=== PATIENT | female | born 1945 | race Caucasian/White ===

== ENCOUNTER → 2016-06-20 | Outpatient (CLI) | payer BC ==
[~2016-06-20] MED LIST: BILBERRY; CALCTAB5 PO; CARB25TA12 PO; CINNAMON; GLC/500 PO; GLY/5 PO; MAGN400T6 PO; POTASSIUM OTC; SIMV40TA2 PO; VITAMIN D3; [UNRECOGNIZED DRUG - OTHER]; [UNRECOGNIZED DRUG - OTHER]
[2016-06-20 11:03] LABS: ESTIMATED AVERAGE GLUCOSE 137 mg/dl; HA1C FLAG Normal (Normal)
[2016-06-20 11:17] LABS: ALT/SGPT 8 U/L (12-78); AST/SGOT 16 U/L (15-37); BLOOD UREA NITROGEN 22 mg/dl (7-18); BUN/CREATININE RATIO 18.3 (10-20); CALCIUM 9.3 mg/dl (8.5-10.1); CARBON DIOXIDE 27 mmol/L (21-32); CHLORIDE 105 mmol/L (98-107); CHOLESTEROL 149 mg/dl (0-200); GLUCOSE 124 mg/dl (70-99); POTASSIUM 4.3 mmol/L (3.5-5.1); SODIUM 143 mmol/L (136-145); TRIGLYCERIDES 92 mg/dl (0-150); VERY LOW DENSITY LIPOPROT CALC 18 mg/dl
[2016-06-20 11:19] LABS: ALB/GLOB RATIO 1.3 (0.9-2); ALKALINE PHOSPHATASE 61 U/L (45-117); CHOLESTEROL/HDL RATIO 2.6; HDL CHOLESTEROL 57 mg/dl
== END | disposition home or self-care (01) ==
LOC: C.LAB 08:56
PROVIDERS: ATTEND Internal Medicine
DX: E11.65 Type 2 diabetes mellitus with hyperglycemia (principal); E78.5 Hyperlipidemia, unspecified; I10 Essential (primary) hypertension

== ENCOUNTER → 2016-06-26 | Outpatient (CLI) | payer BC ==
--- NOTE | 2016-06-26 12:51 | MAMMOGRAPHY REPORT ---
BILATERAL DIGITAL SCREENING MAMMOGRAM WITH CAD: 06/26/2016 CLINICAL HISTORY: Routine screening. Patient has no complaints. TECHNIQUE: Current study was also evaluated with a Computer Aided Detection (CAD) system. Bilatera l CC and MLO views were obtained. COMPARISON: Comparison is made to exams dated: 06/24/2015 mammogram, 06/21/2014 mammogram, 05/16/2013 mammogram, 05/04/2013 mammogram, 04/26/2012 mammogram, and 04/23/2011 mammogram - [facility]. BREAST COMPOSITION: There are scattered areas of fibroglandular density in both breasts. FINDINGS: No suspicious masses, calcifications, or areas of architectural distortion are noted in e ither breast. There has been no significant interval change compared to prior exams. IMPRESSION: ACR BI-RADS CATEGORY 1: NEGATIVE There is no mammographic evidence of malignancy. A 1 year screening mammogram is recommended. The p atient will receive written notification of the results. Approximately 10% of breast cancers are not detected with mammography. A negative mammographic repor t should not delay biopsy if a clinically suggestive mass is present. Anuja Ortega M.D. /:06/26/2016 10:40:26 Finished Stock Inspector: Beth Clarke, [facility] letter sent: Normal 1/2 BI-RADS Code: ACR BI-RADS Category 1: Negative
== END | disposition home or self-care (01) ==
LOC: C.MAMM 09:22
PROVIDERS: ATTEND Internal Medicine
DX: Z12.31 Encounter for screening mammogram for malignant neoplasm of breast (principal)

== ENCOUNTER → 2016-11-07 | Outpatient (CLI) | payer BC ==
[2016-11-07 11:15] LABS: ESTIMATED AVERAGE GLUCOSE 143 mg/dl; HA1C FLAG Normal (Normal)
[2016-11-07 11:16] LABS: ALT/SGPT 9 U/L (12-78); BLOOD UREA NITROGEN 26 mg/dl (7-18); BUN/CREATININE RATIO 18.5 (10-20); CALCIUM 8.8 mg/dl (8.5-10.1); CARBON DIOXIDE 29 mmol/L (21-32); CHLORIDE 106 mmol/L (98-107); CHOLESTEROL 150 mg/dl (0-200); GLUCOSE 148 mg/dl (70-99); POTASSIUM 4.5 mmol/L (3.5-5.1); SODIUM 141 mmol/L (136-145)
[2016-11-07 11:19] LABS: ALB/GLOB RATIO 1.4 (0.9-2); ALKALINE PHOSPHATASE 61 U/L (45-117); AST/SGOT 14 U/L (15-37); CHOLESTEROL/HDL RATIO 2.5; HDL CHOLESTEROL 59 mg/dl; TRIGLYCERIDES 63 mg/dl (0-150); VERY LOW DENSITY LIPOPROT CALC 13 mg/dl
== END | disposition home or self-care (01) ==
LOC: C.LAB 09:14
PROVIDERS: ATTEND Internal Medicine
DX: E78.5 Hyperlipidemia, unspecified (principal); E11.9 Type 2 diabetes mellitus without complications; I10 Essential (primary) hypertension

== ENCOUNTER → 2017-06-28 | Outpatient (CLI) | payer BC ==
--- NOTE | 2017-06-28 15:03 | MAMMOGRAPHY REPORT ---
BILATERAL DIGITAL SCREENING MAMMOGRAM TOMOSYNTHESIS WITH CAD: 06/28/2017 CLINICAL HISTORY: Routine screening examination. TECHNIQUE: Bilateral breast tomosynthesis in addition to standard 2D mammography was performed. Deyanirae nt study was also evaluated with a Computer Aided Detection (CAD) system. COMPARISON: Comparison is made to exams dated: 06/26/2016 mammogram, 06/24/2015 mammogram, 06/21/2014 yasmany mogram, 05/16/2013 mammogram, 05/04/2013 mammogram, and 04/26/2012 mammogram - [facility] enter. BREAST COMPOSITION: There are scattered areas of fibroglandular density in both breasts. FINDINGS: There is a subtle focal asymmetry in the 9:00 to 10:00 middle one third of the right breas t, for which additional spot compression tomosynthesis views and possible ultrasound are recommended. No other suspicious mass, architectural distortion or cluster of microcalcifications is seen bilatera lly. IMPRESSION: ACR BI-RADS CATEGORY 0: INCOMPLETE EVALUATION: NEED ADDITIONAL IMAGING EVALUATION The subtle focal asymmetry in the right upper outer breast needs additional evaluation. The patient will be called to schedule an appointment. Approximately 10% of breast cancers are not detected with mammography. A negative mammographic report should not delay biopsy if a clinically suggestive mass is present. Neela Moore M.D. ay/:06/28/2017 13:20:45 [employer] Volleyball Coach: Beth MOLINA(Kris)(Aamir), [facility] letter sent: Addl Imaging 0 BI-RADS Code: ACR BI-RADS Category 0: Incomplete Evaluation: Need Additional Imaging Evaluation
== END | disposition home or self-care (01) ==
LOC: C.MAMM 10:18
PROVIDERS: ATTEND Internal Medicine
DX: Z12.31 Encounter for screening mammogram for malignant neoplasm of breast (principal); N64.89 Other specified disorders of breast

== ENCOUNTER → 2017-07-12 | Outpatient (CLI) | payer BC ==
--- NOTE | 2017-07-12 14:51 | MAMMOGRAPHY REPORT ---
UNILATERAL RIGHT DIGITAL DIAGNOSTIC MAMMOGRAM TOMOSYNTHESIS AND TARGETED RIGHT ULTRASOUND: 07/12/2017 CLINICAL HISTORY: 72-year-old woman called back from screening mammography for a subtle focal asymmet ry in the 9:00 to 10:00 middle to posterior right breast. TECHNIQUE: Spot compression right CC and MLO 2-D and tomosynthesis images were obtained. COMPARISON: Comparison is made to exams dated: 06/28/2017 mammogram, 06/26/2016 mammogram, 06/24/2015 mamm ogram, 06/21/2014 mammogram, 05/04/2013 mammogram, and 04/26/2012 mammogram - [facility] ter. BREAST COMPOSITION: There are scattered areas of fibroglandular density in the right breast. FINDINGS: The additional spot compression views of the right breast demonstrate partial effacement of the asymmetry, which has the appearance of normal fibrolinear markings. There is no definite eviden ce of a persistent mass or evidence of focal architectural distortion. No corresponding abnormality identified on the current CC spot compression view. When comparing the 2-D spot compression MLO view of the right breast to prior mammograms, the pattern is similar to the 2016 and 2014 mammograms, sug gesting normal overlapping tissue. Targeted ultrasound was performed in the right breast 2:00 through 4:00, retroareolar and 8:00 throug h 10:00 axes. Sonographically normal tissue is seen without a suspicious solid or cystic mass. IMPRESSION: ACR BI-RADS CATEGORY 2: BENIGN, TARGETED ULTRASOUND ACR BI-RADS CATEGORY 2: BENIGN Partial effacement of the mammographic asymmetry in the middle one third of the right breast, along t he posterior nipple line on the MLO view, and no suspicious sonographic correlate identified. This m ost likely represented normal overlapping fibrolinear markings. There is no mammographic or targeted sonographic evidence of malignancy. Return to annual mammogram screening schedule is recommended. T he patient has been verbally notified of the results. Approximately 10% of breast cancers are not detected with mammography. A negative mammographic report should not delay biopsy if a clinically suggestive mass is present. Neela Moore M.D. ay/:07/12/2017 10:48:18 Hand Tacker: Dana MOLINA(R)(M), [facility] letter sent: Normal 1/2 BI-RADS Code: ACR BI-RADS Category 2: Benign Ultrasound BI-RADS: ACR BI-RADS Category 2: Benign
== END | disposition home or self-care (01) ==
LOC: C.MAMM 10:00
PROVIDERS: ATTEND Internal Medicine
DX: N64.9 Disorder of breast, unspecified (principal)

== ENCOUNTER → 2017-07-20 | Outpatient (CLI) | payer BC ==
[2017-07-26 13:10] LABS: FECAL OCCULT BLOOD #1 NEGATIVE (NEGATIVE); FECAL OCCULT BLOOD #2 NEGATIVE (NEGATIVE); FECAL OCCULT BLOOD #3 NEGATIVE (NEGATIVE)
== END | disposition home or self-care (01) ==
LOC: C.LABSPEC 12:51
PROVIDERS: ATTEND Internal Medicine
DX: Z12.11 Encounter for screening for malignant neoplasm of colon (principal)

== ENCOUNTER 2021-04-18 13:06 | Inpatient (IN) ==
[2021-04-18] MEDS ORDERED: SODIUM CHLORIDE 0.9% 1000ML 1,000 ML IV ONE (13:35)
--- NOTE | 2021-04-18 13:52 | Emergency Department Note ---
Impression & Plan 2019 novel coronavirus-infected pneumonia (NCIP), Rhabdomyolysis, Acute dehydration ED Provider Note NAME: PAULA SANCHEZ AGE: 76 SEX: F : 1945 ARRIVES VIA: Ambulance INFORMANT: Patient, EMS ED PROVIDER(S): Mino Lopes DO CHIEF COMPLAINT: Altered mental status HPI: The patient is a 76-year-old female who presented to the emergency department by ambulance for an evaluation of altered mental status. 2 days ago the patient had a check by police. She refused to come in the emergency department that time. She did not answer her phone. Family checked on her today and found her on the floor. Her downtime was unknown. She does answer questions but appears to be in answering questions according to her family compared to baseline. She does have a history of Parkinson's disease. It is unclear if the patient had a fever. It is unclear if the patient had a significant fall. She does not complain of any pain anywhere. The patient may have not been taking her medications recently either. ROS: See above HPI for pertinent positives & negatives. A total of 10 systems reviewed and were otherwise negative. PAST MEDICAL HISTORY: See Below PAST SURGICAL HISTORY: See Below FAMILY HISTORY: See Below SOCIAL HISTORY: See Below HOME MEDICATIONS: See Below ALLERGIES: See Below VITALS: See Below PHYSICAL EXAMINATION: GENERAL: The patient is awake to verbal commands. She does appear to be mildly anxious. EYES: The conjunctivae are clear. The pupils are round and reactive. EARS, NOSE, MOUTH AND THROAT: The nose is without any evidence of any deformity. There is clotted blood in the oropharynx. No definite tongue biting was noted. NECK: The neck is nontender and supple. RESPIRATORY: Normal respiratory effort is noted there is no evidence of wheezing rhonchi or rales CARDIOVASCULAR: Regular rate and rhythm noted there no murmurs rubs or gallops normal S1 normal S2. GASTROINTESTINAL: The abdomen is soft and nondistended. There is no specific tenderness guarding rigidity. MUSCULOSKELETAL/EXTREMITIES: There is no evidence of gross deformity full range of motion is noted in the hips and shoulders. SKIN: Skin is warm and dry. NEUROLOGIC: Patient is awake to verbal commands she appears to be oriented to person place but not time. The patient does not appear to be able to move her right leg. The onset of this is unclear. The patient appears to have a resting tremor in her right upper extremity only. There is no facial droop. MEDICAL DECISION MAKING: The patient is a 76-year-old female who presented to the emergency department for an evaluation after being found on the floor in her house. The patient was seen for a well visit 2 days ago. She refused to come the emergency department at that time. She was then not heard from and family members found her on the floor. The patient was found to have signs of Covid infection on chest x-ray. Her Covid swab was positive. She was treated with IV fluids in the emergency department. I discussed the patient's laboratory and radiographic studies with the on-call [facility]. They have agreed to evaluate the patient in the emergency department for further management and disposition. Triage Nursing notes reviewed. Prior medical records reviewed Vital Signs: reviewed and remarkable for elevated blood pressure. Differential diagnosis: Infection, hypoglycemia, electrolyte abnormalities, overdose, toxicologic, cardiac sources, intracerebral event, neurologic, trauma, as well as other pathologies. ER treatment provided: See below Diagnostics interpreted by me: ECG: EKG was obtained in the emergency department. My interpretation is sinus tachycardia 108 bpm. There is no ectopy. Poor R wave progression was noted. This was compared to a tracing from June [id number]. No significant changes were noted. Cardiac Monitoring: An order was placed for continuous cardiac monitoring. The monitor shows a rate of 101 bpm with sinus tachycardia Laboratory studies: As stated above and show below. Imaging studies: See below Consultation(s): I discussed this case with Devante who is on for the [facility] group. They have agreed to evaluate the patient in the emergency department. Past Med/Surg History Medical History (Updated 04/18/21 @ 17:27 by Mino Lopes DO) Ankle sprain Diabetes HLD (hyperlipidemia) Parkinsons disease Surgical History History of back surgery History of dilation and curettage Family History Family/Other Heart disease Mother No pertinent family history Father No pertinent family history Social History Smoking Status: Never smoker Preferred Language: Kyrgyz marital status: Current Living Situation: Alone current occupational status: employed Feels Safe at Home: Yes Allergies Allergies Allergy/AdvReac Type Severity Reaction Status Date / Time latex Allergy Mild RASH Verified 04/18/21 14:19 Sulfa (Sulfonamide Allergy Unknown Verified 04/18/21 14:19 Antibiotics) Bee sting Allergy Unknown Unknown Uncoded 04/18/21 14:19 Home Meds Home Medications Medication Instructions Recorded Confirmed bilberry 100 mg capsule 200 mg PO BID 06/13/18 04/18/21 cinnamon bark 500 mg capsule 500 mg PO BID 06/13/18 04/18/21 (Cinnamon) glyburide 5 mg tablet 5 mg PO BID 06/13/18 04/18/21 magnesium oxide 400 mg PO BID 06/13/18 04/18/21 metformin 500 mg tablet 500 mg PO BIDM 06/13/18 04/18/21 potassium 99 mg tablet 495 mg PO BID 06/13/18 04/18/21 simvastatin 40 mg tablet 40 mg PO QDD 06/13/18 04/18/21 cholecalciferol (vitamin D3) 25 1,000 units PO BID cap 01/09/19 04/18/21 mcg (1,000 unit) capsule cyanocobalamin (vitamin B-12) 2,500 mcg PO DAILY 01/09/19 04/18/21 2,500 mcg tablet folic acid 800 mcg tablet 800 mcg PO BID tab 01/09/19 04/18/21 lisinopril 10 mg tablet 10 mg PO DAILY tab 01/09/19 04/18/21 pyridoxine (vitamin B6) 100 mg 100 mg PO BID tab 01/09/19 04/18/21 tablet Previous Rx's Medication Instructions Recorded carbidopa 25 mg-levodopa 100 mg 2 tab PO QID 30 Days #240 tab 04/01/21 tablet Results & Data (ED) Vital Signs Vital Signs - 24 hr 04/18/21 12:54 04/18/21 12:55 04/18/21 13:35 Temperature 36.4 C L Temperature Source Oral Pulse Rate 87 Pulse Rate [Left] Pulse Rhythm Regular Pulse Rhythm [Left] Pulse Strength Normal Pulse Strength [Left] Respiratory Rate 20 Respiratory Effort / Characteristics Non-Labored Non-Labored Respiratory Depth Normal Blood Pressure 172/126 H Blood Pressure [Left Arm] Blood Pressure Mean 141 Blood Pressure Mean [Left Arm] Pulse Oximetry 94 94 Oxygen Delivery Method Room Air Room Air Sepsis Recent Fever Within 48 Hours No Sepsis New/Unexplained Change in Mental Status No Sepsis Action Taken by Nursing No Action Required 04/18/21 14:05 04/18/21 14:35 04/18/21 14:39 Temperature Temperature Source Pulse Rate 103 H Pulse Rate [Left] 103 H Pulse Rhythm Pulse Rhythm [Left] Regular Pulse Strength Pulse Strength [Left] Normal Respiratory Rate 22 Respiratory Effort / Characteristics Non-Labored Non-Labored Non-Labored Respiratory Depth Normal Blood Pressure Blood Pressure [Left Arm] 167/91 H Blood Pressure Mean Blood Pressure Mean [Left Arm] 116 Pulse Oximetry 95 Oxygen Delivery Method Room Air Sepsis Recent Fever Within 48 Hours Sepsis New/Unexplained Change in Mental Status Sepsis Action Taken by Nursing 04/18/21 14:41 04/18/21 14:42 04/18/21 15:00 Temperature Temperature Source Pulse Rate 102 H Pulse Rate [Left] 104 H Pulse Rhythm Pulse Rhythm [Left] Pulse Strength Pulse Strength [Left] Respiratory Rate 20 24 Respiratory Effort / Characteristics Non-Labored Non-Labored Respiratory Depth Blood Pressure Blood Pressure [Left Arm] 167/91 H Blood Pressure Mean Blood Pressure Mean [Left Arm] 116 Pulse Oximetry 96 94 Oxygen Delivery Method Room Air Sepsis Recent Fever Within 48 Hours Sepsis New/Unexplained Change in Mental Status Sepsis Action Taken by Nursing 04/18/21 15:30 Temperature Temperature Source Pulse Rate 101 H Pulse Rate [Left] Pulse Rhythm Pulse Rhythm [Left] Pulse Strength Pulse Strength [Left] Respiratory Rate 23 Respiratory Effort / Characteristics Non-Labored Respiratory Depth Blood Pressure 149/86 H Blood Pressure [Left Arm] Blood Pressure Mean 107 Blood Pressure Mean [Left Arm] Pulse Oximetry 93 Oxygen Delivery Method Sepsis Recent Fever Within 48 Hours Sepsis New/Unexplained Change in Mental Status Sepsis Action Taken by Residential Medications Current Medication List: was personally reviewed by me Laboratory Data Attestation: I reviewed the patient's lab results. Result diagrams: 04/18/21 13:45 04/18/21 13:45 Lab Results 04/18/21 04/18/21 04/18/21 Range/Units 13:45 13:45 13:45 WBC 10.01 (4.8-10.8) K/uL RBC 5.12 (4.2-5.4) M/uL Hgb 15.1 (12.0-16.0) g/dL Hct 45.2 (37-47) % MCV 88.3 (80-100) fL MCH 29.5 (25-34) pg MCHC 33.4 (32-36) g/dL RDW Std Deviation 41.3 (36.4-46.3) fL RDW Coeff of Ilan 12.7 (11.5-14.5) % Plt Count 207 (130-400) K/uL MPV 9.8 (7.4-10.4) fL Immature Gran % (Auto) 0.1 % Neut % (Auto) 86.9 % Lymph % (Auto) 5.3 % [place] % (Auto) 7.6 % Eos % (Auto) 0.0 % Baso % (Auto) 0.1 % Neut # (Auto) 8.70 H (1.4-6.5) K/uL Lymph # (Auto) 0.53 L (1.2-3.4) K/uL [place] # (Auto) 0.76 H (0.11-0.59) K/uL Eos # (Auto) 0.00 (0-0.5) K/uL Baso # (Auto) 0.01 (0-0.2) K/uL Immature Gran # (Auto) 0.01 (0.00-0.02) K/uL PT 10.4 (9.0-12.0) Seconds INR 1.0 (0.9-1.1) APTT 22.6 (21.0-31.0) Seconds PTT Ratio 0.9 Fibrinogen (184-400) mg/dl Sodium 142 (136-145) mmol/L Potassium 3.6 (3.5-5.1) mmol/L Chloride 107 (98-107) mmol/L Carbon Dioxide 16 L (21-32) mmol/L Anion Gap 19.0 H (3-11) BUN 30 H (7-18) mg/dl Creatinine 1.13 (0.6-1.2) mg/dl Est Cr Clr Drug Dosing Not Reportable Est GFR ( Amer) 53.9 ml/min Est GFR (Non-Af Amer) 46.5 ml/min BUN/Creatinine Ratio 26.3 H (10-20) Glucose 272 H (70-99) mg/dl Lactate (0.4-2.0) mmol/L Calcium 9.3 (8.5-10.1) mg/dl Phosphorus (2.5-4.9) mg/dl Magnesium 2.5 H (1.8-2.4) mg/dl Ferritin (8-388) ng/ml Total Bilirubin 0.6 (0.2-1) mg/dl AST 63 H (15-37) U/L ALT 39 (12-78) U/L Alkaline Phosphatase 69 (45-117) U/L Lactate Dehydrogenase (84-246) U/L Total Creatine Kinase 1616 H (26-192) U/L CK-MB (CK-2) 24.3 H (0.5-3.6) ng/ml CK/CKMB % Calc 1.5 (0-3.0) Troponin I < 0.015 (0-0.045) ng/ml C-Reactive Protein (0-0.29) mg/dl NT-Pro-B Natriuret Pep (0-1800) pg/ml Total Protein 7.6 (6.4-8.2) gm/dl Albumin 3.3 L (3.4-5.0) gm/dl Globulin 4.3 H (2.5-4.0) gm/dl Albumin/Globulin Ratio 0.8 L (0.9-2) Procalcitonin (0-0.5) ng/ml Specimen Hemolysis Urine Color Urine Appearance (Clear) Urine pH (4.5-7.5) Ur Specific [place] (1.000-1.030) Urine Protein (Negative) Urine Glucose (UA) (Negative) Urine Ketones (Negative) Urine Blood (Negative) Urine Nitrite (Negative) Urine Bilirubin (Negative) Urine Urobilinogen (Negative) Ur Leukocyte Esterase (Negative) Urine WBC (Auto) (0-5) /hpf Urine RBC (Auto) (0-4) /hpf U Hyaline Cast (Auto) (0-5) /lpf U Epithel Cells (Auto) (0-5) /lpf Urine Bacteria (Auto) (Negative) Urine Opiates Screen (Neg) Ur Methadone, Qual (Neg) Urine Barbiturates (Neg) Ur Phencyclidine (PCP) (Neg) U Amphetamin/Meth Scrn (Neg) MDMA (Ecstasy) Screen (Neg) U Benzodiazepines Scrn (Neg) Ur Cocaine Metabolite (Neg) U Marijuana (THC) Screen (Neg) Ethyl Alcohol mg/dL (0-3) mg/dl SARS-CoV-2, RNA, NAAT (NEGATIVE) 04/18/21 04/18/21 04/18/21 Range/Units 13:45 13:45 13:45 WBC (4.8-10.8) K/uL RBC (4.2-5.4) M/uL Hgb (12.0-16.0) g/dL Hct (37-47) % MCV (80-100) fL MCH (25-34) pg MCHC (32-36) g/dL RDW Std Deviation (36.4-46.3) fL RDW Coeff of Ilan (11.5-14.5) % Plt Count (130-400) K/uL MPV (7.4-10.4) fL Immature Gran % (Auto) % Neut % (Auto) % Lymph % (Auto) % [place] % (Auto) % Eos % (Auto) % Baso % (Auto) % Neut # (Auto) (1.4-6.5) K/uL Lymph # (Auto) (1.2-3.4) K/uL [place] # (Auto) (0.11-0.59) K/uL Eos # (Auto) (0-0.5) K/uL Baso # (Auto) (0-0.2) K/uL Immature Gran # (Auto) (0.00-0.02) K/uL PT (9.0-12.0) Seconds INR (0.9-1.1) APTT (21.0-31.0) Seconds PTT Ratio Fibrinogen (184-400) mg/dl Sodium (136-145) mmol/L Potassium (3.5-5.1) mmol/L Chloride (98-107) mmol/L Carbon Dioxide (21-32) mmol/L Anion Gap (3-11) BUN (7-18) mg/dl Creatinine (0.6-1.2) mg/dl Est Cr Clr Drug Dosing Est GFR ( Amer) ml/min Est GFR (Non-Af Amer) ml/min BUN/Creatinine Ratio (10-20) Glucose (70-99) mg/dl Lactate 1.8 (0.4-2.0) mmol/L Calcium (8.5-10.1) mg/dl Phosphorus (2.5-4.9) mg/dl Magnesium (1.8-2.4) mg/dl Ferritin (8-388) ng/ml Total Bilirubin (0.2-1) mg/dl AST (15-37) U/L ALT (12-78) U/L Alkaline Phosphatase (45-117) U/L Lactate Dehydrogenase (84-246) U/L Total Creatine Kinase (26-192) U/L CK-MB (CK-2) (0.5-3.6) ng/ml CK/CKMB % Calc (0-3.0) Troponin I (0-0.045) ng/ml C-Reactive Protein (0-0.29) mg/dl NT-Pro-B Natriuret Pep (0-1800) pg/ml Total Protein (6.4-8.2) gm/dl Albumin (3.4-5.0) gm/dl Globulin (2.5-4.0) gm/dl Albumin/Globulin Ratio (0.9-2) Procalcitonin 0.32 (0-0.5) ng/ml Specimen Hemolysis Urine Color Urine Appearance (Clear) Urine pH (4.5-7.5) Ur Specific [place] (1.000-1.030) Urine Protein (Negative) Urine Glucose (UA) (Negative) Urine Ketones (Negative) Urine Blood (Negative) Urine Nitrite (Negative) Urine Bilirubin (Negative) Urine Urobilinogen (Negative) Ur Leukocyte Esterase (Negative) Urine WBC (Auto) (0-5) /hpf Urine RBC (Auto) (0-4) /hpf U Hyaline Cast (Auto) (0-5) /lpf U Epithel Cells (Auto) (0-5) /lpf Urine Bacteria (Auto) (Negative) Urine Opiates Screen Neg (Neg) Ur Methadone, Qual Neg (Neg) Urine Barbiturates Neg (Neg) Ur Phencyclidine (PCP) Neg (Neg) U Amphetamin/Meth Scrn Neg (Neg) MDMA (Ecstasy) Screen Neg (Neg) U Benzodiazepines Scrn Neg (Neg) Ur Cocaine Metabolite Neg (Neg) U Marijuana (THC) Screen Neg (Neg) Ethyl Alcohol mg/dL (0-3) mg/dl SARS-CoV-2, RNA, NAAT (NEGATIVE) 04/18/21 04/18/21 04/18/21 Range/Units 14:07 14:35 16:05 WBC (4.8-10.8) K/uL RBC (4.2-5.4) M/uL Hgb (12.0-16.0) g/dL Hct (37-47) % MCV (80-100) fL MCH (25-34) pg MCHC (32-36) g/dL RDW Std Deviation (36.4-46.3) fL RDW Coeff of Ilan (11.5-14.5) % Plt Count (130-400) K/uL MPV (7.4-10.4) fL Immature Gran % (Auto) % Neut % (Auto) % Lymph % (Auto) % [place] % (Auto) % Eos % (Auto) % Baso % (Auto) % Neut # (Auto) (1.4-6.5) K/uL Lymph # (Auto) (1.2-3.4) K/uL [place] # (Auto) (0.11-0.59) K/uL Eos # (Auto) (0-0.5) K/uL Baso # (Auto) (0-0.2) K/uL Immature Gran # (Auto) (0.00-0.02) K/uL PT (9.0-12.0) Seconds INR (0.9-1.1) APTT (21.0-31.0) Seconds PTT Ratio Fibrinogen (184-400) mg/dl Sodium (136-145) mmol/L Potassium (3.5-5.1) mmol/L Chloride (98-107) mmol/L Carbon Dioxide (21-32) mmol/L Anion Gap (3-11) BUN (7-18) mg/dl Creatinine (0.6-1.2) mg/dl Est Cr Clr Drug Dosing Est GFR ( Amer) ml/min Est GFR (Non-Af Amer) ml/min BUN/Creatinine Ratio (10-20) Glucose (70-99) mg/dl Lactate (0.4-2.0) mmol/L Calcium (8.5-10.1) mg/dl Phosphorus (2.5-4.9) mg/dl Magnesium (1.8-2.4) mg/dl Ferritin (8-388) ng/ml Total Bilirubin (0.2-1) mg/dl AST (15-37) U/L ALT (12-78) U/L Alkaline Phosphatase (45-117) U/L Lactate Dehydrogenase (84-246) U/L Total Creatine Kinase (26-192) U/L CK-MB (CK-2) (0.5-3.6) ng/ml CK/CKMB % Calc (0-3.0) Troponin I (0-0.045) ng/ml C-Reactive Protein (0-0.29) mg/dl NT-Pro-B Natriuret Pep (0-1800) pg/ml Total Protein (6.4-8.2) gm/dl Albumin (3.4-5.0) gm/dl Globulin (2.5-4.0) gm/dl Albumin/Globulin Ratio (0.9-2) Procalcitonin (0-0.5) ng/ml Specimen Hemolysis Urine Color Dark Yellow Urine Appearance Clear (Clear) Urine pH 6.0 (4.5-7.5) Ur Specific [place] 1.022 (1.000-1.030) Urine Protein 2+ H (Negative) Urine Glucose (UA) Trace H (Negative) Urine Ketones 4+ H (Negative) Urine Blood 1+ H (Negative) Urine Nitrite Negative (Negative) Urine Bilirubin Negative (Negative) Urine Urobilinogen Negative (Negative) Ur Leukocyte Esterase Negative (Negative) Urine WBC (Auto) 0 (0-5) /hpf Urine RBC (Auto) 0-4 (0-4) /hpf U Hyaline Cast (Auto) 1-5 (0-5) /lpf U Epithel Cells (Auto) 10-20 H (0-5) /lpf Urine Bacteria (Auto) Negative (Negative) Urine Opiates Screen (Neg) Ur Methadone, Qual (Neg) Urine Barbiturates (Neg) Ur Phencyclidine (PCP) (Neg) U Amphetamin/Meth Scrn (Neg) MDMA (Ecstasy) Screen (Neg) U Benzodiazepines Scrn (Neg) Ur Cocaine Metabolite (Neg) U Marijuana (THC) Screen (Neg) Ethyl Alcohol mg/dL < 3.0 (0-3) mg/dl SARS-CoV-2, RNA, NAAT POSITIVE A* (NEGATIVE) 11/04/18/21 04/18/21 Range/Units 16:05 16:05 16:05 WBC (4.8-10.8) K/uL RBC (4.2-5.4) M/uL Hgb (12.0-16.0) g/dL Hct (37-47) % MCV (80-100) fL MCH (25-34) pg MCHC (32-36) g/dL RDW Std Deviation (36.4-46.3) fL RDW Coeff of Ilan (11.5-14.5) % Plt Count (130-400) K/uL MPV (7.4-10.4) fL Immature Gran % (Auto) % Neut % (Auto) % Lymph % (Auto) % [place] % (Auto) % Eos % (Auto) % Baso % (Auto) % Neut # (Auto) (1.4-6.5) K/uL Lymph # (Auto) (1.2-3.4) K/uL [place] # (Auto) (0.11-0.59) K/uL Eos # (Auto) (0-0.5) K/uL Baso # (Auto) (0-0.2) K/uL Immature Gran # (Auto) (0.00-0.02) K/uL PT (9.0-12.0) Seconds INR (0.9-1.1) APTT (21.0-31.0) Seconds PTT Ratio Fibrinogen 546 H (184-400) mg/dl Sodium (136-145) mmol/L Potassium (3.5-5.1) mmol/L Chloride (98-107) mmol/L Carbon Dioxide (21-32) mmol/L Anion Gap (3-11) BUN (7-18) mg/dl Creatinine (0.6-1.2) mg/dl Est Cr Clr Drug Dosing Est GFR ( Amer) ml/min Est GFR (Non-Af Amer) ml/min BUN/Creatinine Ratio (10-20) Glucose (70-99) mg/dl Lactate (0.4-2.0) mmol/L Calcium (8.5-10.1) mg/dl Phosphorus 2.1 L (2.5-4.9) mg/dl Magnesium (1.8-2.4) mg/dl Ferritin 709.0 H (8-388) ng/ml Total Bilirubin (0.2-1) mg/dl AST (15-37) U/L ALT (12-78) U/L Alkaline Phosphatase (45-117) U/L Lactate Dehydrogenase 443 H (84-246) U/L Total Creatine Kinase (26-192) U/L CK-MB (CK-2) (0.5-3.6) ng/ml CK/CKMB % Calc (0-3.0) Troponin I (0-0.045) ng/ml C-Reactive Protein 9.68 H (0-0.29) mg/dl NT-Pro-B Natriuret Pep 683 (0-1800) pg/ml Total Protein (6.4-8.2) gm/dl Albumin (3.4-5.0) gm/dl Globulin (2.5-4.0) gm/dl Albumin/Globulin Ratio (0.9-2) Procalcitonin (0-0.5) ng/ml Specimen Hemolysis Urine Color Urine Appearance (Clear) Urine pH (4.5-7.5) Ur Specific [place] (1.000-1.030) Urine Protein (Negative) Urine Glucose (UA) (Negative) Urine Ketones (Negative) Urine Blood (Negative) Urine Nitrite (Negative) Urine Bilirubin (Negative) Urine Urobilinogen (Negative) Ur Leukocyte Esterase (Negative) Urine WBC (Auto) (0-5) /hpf Urine RBC (Auto) (0-4) /hpf U Hyaline Cast (Auto) (0-5) /lpf U Epithel Cells (Auto) (0-5) /lpf Urine Bacteria (Auto) (Negative) Urine Opiates Screen (Neg) Ur Methadone, Qual (Neg) Urine Barbiturates (Neg) Ur Phencyclidine (PCP) (Neg) U Amphetamin/Meth Scrn (Neg) MDMA (Ecstasy) Screen (Neg) U Benzodiazepines Scrn (Neg) Ur Cocaine Metabolite (Neg) U Marijuana (THC) Screen (Neg) Ethyl Alcohol mg/dL (0-3) mg/dl SARS-CoV-2, RNA, NAAT (NEGATIVE) Administered Medications Discontinued Medications Sodium Chloride (Nss 1000ml) 1,000 mls @ 999 mls/hr IV .[id number] ONE Stop: 04/18/21 14:35 Last Infusion: 04/18/21 15:07 Dose: 0 mls/hr Documented by: [id number] Admin: 04/18/21 13:50 Dose: 999 mls/hr Documented by: [id number] Cefepime HCl (Maxipime) 2,000 mg in 20 mls @ 5 mls/min IV NOW STA; Protocol Stop: 04/18/21 14:36 Last Admin: 04/18/21 14:59 Dose: 5 mls/min Documented by: [id number] Imaging Data Radiologist's Impression: Chest X-Ray 04/18/21 13:35 XR chest 1V portable CLINICAL HISTORY: SEPSIS. . Evaluate cardiac pulmonary status COMPARISON STUDY: 06/13/2018 TECHNIQUE: 1 view of the chest FINDINGS: Single frontal view of the chest demonstrates the cardiomediastinal silhouette to be within normal limits. There is again asymmetric elevation of the right hemidiaphragm. There is a patchy alveolar opacity present within the left midlung highly suspicious for early pneumonia. The remainder of the lungs are clear. There is no evidence for pleural effusion. There is no evidence for vascular congestion. There is no acute osseous pathology. IMPRESSION: Patchy alveolar opacity in the left midlung peripherally highly suspicious for early pneumonia. ACT 112: Negative or not required by law. Electronically signed by: Vineet Mcneal M.D. 04/18/2021 2:[address] 04/18/21 13:35 CT head/brain wo con CLINICAL HISTORY: ams COMPARISON STUDY: No previous studies for comparison. CT DOSE: 1424.24 mGycm TECHNIQUE: Standard CT of the Brain was performed without IV contrast. A dose lowering technique was utilized adhering to the principles of ALARA. FINDINGS: Extraaxial space: There is no evidence for subdural hematoma. There are no extra-axial fluid collections. Ventricles and cisterns: The ventricles are mildly dilated bilaterally. There is no evidence for midline shift or mass effect. Parenchyma: There is no subarachnoid or intraparenchymal hemorrhage. There is no evidence for an acute infarct or cerebral edema. There is mild cerebral cortical atrophy and decreased attenuation in the periventricular white matter representing remote small vessel disease. There are no gross mass lesions. Osseous structures: There is no evidence for an acute fracture. The visualized paranasal sinuses are clear. The mastoid air cells are clear bilaterally. Soft tissues: There is no evidence for focal soft tissue swelling. IMPRESSION: No acute intracerebral pathology. Cerebral cortical atrophy and remote small vessel disease. ACT 112: Negative or not required by law. Electronically signed by: Vineet Mcneal M.D. 04/18/2021 2:20 PM Discharge Plan Visit Data Chief Complaint: Confusion Stated Complaint: CONFUSION, ED Provider: Mino Lopes Discharge Problem: 2019 novel coronavirus-infected pneumonia (NCIP), Rhabdomyolysis, Acute dehydration Patient Disposition: Being Evaluated by Hospitalist Forms Stand Alone Forms: My [facility] Prescriptions Prescriptions: No Action cyanocobalamin (vitamin B-12) 2,500 mcg tablet 2,500 mcg PO DAILY RF: 0 cholecalciferol (vitamin D3) 1,000 unit capsule 1,000 units PO BID RF: 0 folic acid 800 mcg tablet 800 mcg PO BID RF: 0 pyridoxine (vitamin B6) 100 mg tablet 100 mg PO BID RF: 0 lisinopril 10 mg tablet 10 mg PO DAILY RF: 0 carbidopa-levodopa 25-100 mg tablet 2 tab PO QID 30 Days Qty: 240 RF: 5 metformin 500 mg Tablet 500 mg PO BIDM RF: 0 glyburide 5 mg Tablet 5 mg PO BID RF: 0 simvastatin 40 mg tablet 40 mg PO QDD RF: 0 potassium 99 mg Tablet 495 mg PO BID RF: 0 bilberry 100 mg Capsule 200 mg PO BID RF: 0 cinnamon bark [Cinnamon] 500 mg Capsule 500 mg PO BID RF: 0 magnesium oxide 400 mg Capsule 400 mg PO BID RF: 0 Referrals Referrals: Edil Singh MD [Primary Care Provider] -
[2021-04-18 14:00] LABS: Basophils # (auto) 0.01 K/uL (0-0.2); Basophils % (auto) 0.1 %; Hematocrit (blood only) 45.2 % (37-47); Hemoglobin 15.1 g/dL (12.0-16.0); Immature Granulocytes # (auto) 0.01 K/uL (0.00-0.02); Immature Granulocytes % (auto) 0.1 %; Lymphocytes # (auto) 0.53 K/uL (1.2-3.4); Lymphocytes % (auto) 5.3 %; Mean Corpuscular Hemoglobin 29.5 pg (25-34); Mean Corpuscular Hgb Conc 33.4 g/dL (32-36); Mean Corpuscular Volume 88.3 fL (80-100); Mean Platelet Volume 9.8 fL (7.4-10.4); Monocytes # (auto) 0.76 K/uL (0.11-0.59); Monocytes % (auto) 7.6 %; Neutrophils % (auto) 86.9 %; Platelet Count 207 K/uL (130-400); RDW Coefficient of Variation 12.7 % (11.5-14.5); RDW Standard Deviation 41.3 fL (36.4-46.3); Red Blood Count 5.12 M/uL (4.2-5.4); White Blood Count 10.01 K/uL (4.8-10.8)
--- NOTE | 2021-04-18 14:02 | XRay Report ---
XR chest 1V portable CLINICAL HISTORY: SEPSIS. . Evaluate cardiac pulmonary status COMPARISON STUDY: 06/13/2018 TECHNIQUE: 1 view of the chest FINDINGS: Single frontal view of the chest demonstrates the cardiomediastinal silhouette to be within normal li mits. There is again asymmetric elevation of the right hemidiaphragm. There is a patchy alveolar opac ity present within the left midlung highly suspicious for early pneumonia. The remainder of the lungs are clear. There is no evidence for pleural effusion. There is no evidence for vascular congestion. There is no acute osseous pathology. IMPRESSION: Patchy alveolar opacity in the left midlung peripherally highly suspicious for early pneu monia. ACT 112: Negative or not required by law. Electronically signed by: Vineet Mcneal M.D. 04/18/2021 2:01 PM
[2021-04-18 14:11] LABS: Partial Thromboplastin Ratio 0.9; Partial Thromboplastin Time 22.6 Seconds (21.0-31.0); Prothrombin Time 10.4 Seconds (9.0-12.0)
[2021-04-18 14:20] LABS: Alanine Aminotransferase 39 U/L (12-78); Albumin Level 3.3 gm/dl (3.4-5.0); Aspartate Aminotransferase 63 U/L (15-37); BUN Creatinine Ratio 26.3 (10-20); Blood Urea Nitrogen 30 mg/dl (7-18); Calcium 9.3 mg/dl (8.5-10.1); Carbon Dioxide 16 mmol/L (21-32); Chloride 107 mmol/L (98-107); Est GFR (African American) 53.9 ml/min; Est GFR (Non-African American) 46.5 ml/min; Glucose 272 mg/dl (70-99); Magnesium 2.5 mg/dl (1.8-2.4); Potassium 3.6 mmol/L (3.5-5.1); Sodium 142 mmol/L (136-145)
--- NOTE | 2021-04-18 14:21 | CT Scan Report ---
CT head/brain wo con CLINICAL HISTORY: ams COMPARISON STUDY: No previous studies for comparison. CT DOSE: 1424.24 mGycm TECHNIQUE: Standard CT of the Brain was performed without IV contrast. A dose lowering technique was utilized adhering to the principles of ALARA. FINDINGS: Extraaxial space: There is no evidence for subdural hematoma. There are no extra-axial fluid collecti ons. Ventricles and cisterns: The ventricles are mildly dilated bilaterally. There is no evidence for mid line shift or mass effect. Parenchyma: There is no subarachnoid or intraparenchymal hemorrhage. There is no evidence for an acu te infarct or cerebral edema. There is mild cerebral cortical atrophy and decreased attenuation in th e periventricular white matter representing remote small vessel disease. There are no gross mass lesi ons. Osseous structures: There is no evidence for an acute fracture. The visualized paranasal sinuses are clear. The mastoid air cells are clear bilaterally. Soft tissues: There is no evidence for focal soft tissue swelling. IMPRESSION: No acute intracerebral pathology. Cerebral cortical atrophy and remote small vessel disea se. ACT 112: Negative or not required by law. Electronically signed by: Vineet Mcneal M.D. 04/18/2021 2:20 PM
[2021-04-18] MEDS ORDERED: CEFEPIME 2,000 MG/20 ML VIAL IV STA (14:33)
[2021-04-18 14:36] LABS: Albumin Globulin Ratio 0.8 (0.9-2); Alkaline Phosphatase 69 U/L (45-117); Bilirubin,Total 0.6 mg/dl (0.2-1); Creatine Kinase 1616 U/L (26-192); Creatine Kinase MB 24.3 ng/ml (0.5-3.6); Globulin 4.3 gm/dl (2.5-4.0); Total Protein 7.6 gm/dl (6.4-8.2); Troponin I < 0.015 ng/ml (0-0.045)
[2021-04-18 14:48] LABS: Appearance Urine Clear (Clear); Bacteria Urine Automated Negative (Negative); Bilirubin Urine Negative (Negative); Blood Urine 1+ (Negative); Color Urine Dark Yellow; Glucose Urine UA Trace (Negative); Ketones Urine 4+ (Negative); Leukocyte Esterase Urine Negative (Negative); Nitrite Urine Negative (Negative); Protein Urine 2+ (Negative); RBC Urine Automated 0-4 /hpf (0-4); Specific Gravity Urine 1.022 (1.000-1.030); Urobilinogen Urine Negative (Negative); WBC Urine Automated 0 /hpf (0-5)
--- NOTE | 2021-04-18 16:09 | History & Physical Report ---
Date of Service April 18, 2021 Assessment & Plan (1) COVID: Plan: Unsure of day of illness as well as vaccination status - COVID test (+) on admission - Currently not hypoxic on admission - If she becomes hypoxemic- add steroid therapy - Not candidate for remdisivir as unsure of day of illness - CRP pending - LDH/Ferritin/CRP/BNP/Fibrinogen pending on admission - Follow pulmonary status with IV re-hydration for acidosis/rhabdo/ - Self rotation and proning therapy as able (2) Metabolic encephalopathy: Plan: Multiple causes at this time- likely related to her acidosis and ketosis- unsure of her baseline - Thiamin 200mg IV now and then daily - Correct acidosis - Follow neurological exams - No acute bleed or injury on head CT - If acute change- Repeat non-con head CT for possible DASH as unknown fall - Tox screen negative - ETOH level <3.0 (3) Rhabdomyolysis: Plan: Unknown mechanism of how she ended up on the floor -Mild at 1616 - Brewer score- 8.5 - Received 1L of crystalloid in the EMD - Continue with LR at 100ml/hr - adjust based on urine output and rhabdo - Patient had full depends of urine prior to placing Ortiz catheter (4) Increased anion gap metabolic acidosis: Plan: Multiple causes to include - starvation ketosis, metformin associated (however lactate is normal), and mild rhabdomyolysis. - Continue with volume replacement - HCO3 16 - Should increase with volume replacement and oral intake (5) Diabetes: Plan: DMII on metformin - Glucose on arrival 272- last level we have 159 (2019) - Aspart sliding scale 100-140 (with CF 20) - Goal <180 (6) Parkinsons disease: Plan: Continue with Carbidopa-Levadopa (7) HLD (hyperlipidemia): Plan: Hold Zocor until CKs downtrend- although not likely related to her statin use (8) Pressure injury of back, stage 2: Plan: Present on admission secondary to patient being found down at home - Optifoam placed to sacrum and heels - Offload every 2 hours History of Present Illness Primary Care Provider: Edil Singh MD 76 YOF with past medical history of: Parkinson's disease, DM II, HTN, HLD. There are no PCP records in our system and the contact information listed goes to in inoperable number. Crystal daughter did call for the following information. Patient was brought in via EMS. The rest of the information was obtained from the daughter Aline. Patient was found on Wednesday not answering phone or door, so police were notified and they were able to gain access. She was found on the couch sleeping and was arousable and she declined to come to hospital. Her Grand-daughter (lillian daughter) was able to get a bahena made and went to check on her today. When she opened the door, Loly (the patient) was on the floor with no blood noted and was arousable but covered in stool. Aline is unsure of when she may have started having symptoms or onset of COVID and states she has normally been feeling well, but has noted a functional decline over the past few months. She was brought to the EMD with encephalopathy and noted to have COVID. In the EMD the patient had routine blood work done to include blood cultures, tox screen and ETOH level. 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 Her CK is 1616. Her UA revealed +4 ketones, 2+ protein and negative bacteria/LE/Nitr. She received a dose of Cefepime in the EMD and 1Liter of crystalloid and hospitalist service was notified for admission. Patient will be admitted to PCU-COVID floor for correction of her metabolic acidosis in the setting of ketosis and mild rhabdomyolysis and also likely metformin associated acidosis as well. Her CXR shows patchy alveolar opacity ? early pneumonia and no other acute process, her CT of her head revealed no acute process. Patient is not hypoxic. Patient is not vaccinated and her: COVID on admission is POSITIVE Allergies Allergy/AdvReac Type Severity Reaction Status Date / Time latex Allergy Mild RASH Verified 04/18/21 14:19 Sulfa (Sulfonamide Allergy Unknown Verified 04/18/21 14:19 Antibiotics) Bee sting Allergy Unknown Unknown Uncoded 04/18/21 14:19 Home Medications Medication Instructions Recorded Confirmed Type bilberry 100 mg capsule 200 mg PO BID 06/13/18 04/18/21 History cinnamon bark 500 mg capsule 500 mg PO BID 06/13/18 04/18/21 History (Cinnamon) glyburide 5 mg tablet 5 mg PO BID 06/13/18 04/18/21 History magnesium oxide 400 mg PO BID 06/13/18 04/18/21 History metformin 500 mg tablet 500 mg PO BIDM 06/13/18 04/18/21 History potassium 99 mg tablet 495 mg PO BID 06/13/18 04/18/21 History simvastatin 40 mg tablet 40 mg PO QDD 06/13/18 04/18/21 History cholecalciferol (vitamin D3) 25 1,000 units PO BID cap 01/09/19 04/18/21 History mcg (1,000 unit) capsule cyanocobalamin (vitamin B-12) 2,500 mcg PO DAILY 01/09/19 04/18/21 History 2,500 mcg tablet folic acid 800 mcg tablet 800 mcg PO BID tab 01/09/19 04/18/21 History lisinopril 10 mg tablet 10 mg PO DAILY tab 01/09/19 04/18/21 History pyridoxine (vitamin B6) 100 mg 100 mg PO BID tab 01/09/19 04/18/21 History tablet carbidopa 25 mg-levodopa 100 mg 2 tab PO QID 30 Days #240 tab 04/01/21 04/18/21 Rx tablet Past Med/Surg History Medical History (Updated 04/18/21 @ 17:46 by CHUCHO Brady) Ankle sprain Diabetes HLD (hyperlipidemia) Parkinsons disease Surgical History History of back surgery History of dilation and curettage Family History Family/Other Heart disease Mother No pertinent family history Father No pertinent family history Social History Smoking Status: Never smoker Preferred Language: 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 delirious Head: Normocephalic, atraumatic ENT: PERRL, EOMI, no pharyngeal exudate, mucous membranes dry Neuro: AAO x 1, speech clear and inappropriate answers to questions, right arm tremor, strength intact bilaterally 5/5, sensation intact and equal all extre mities and dermatomes, no pronator drift, follows commands Chest: equal rise and fall of the chest, no accessory muscle use, no heaves or thrills, Clear to auscultation although not taking deep breaths, on room air, Cardiac: Regular rate and rhythm, telemetry reviewed-NSR, skin warm dry, cap refill <3 seconds, peripheral pulses +2 no JVD, no murmur, no edema GI: NABS x 4 quadrants, soft, nontender to palpation, no rebound, guarding or tenderness : will place Ortiz for following UO with elevated CK and acidosis, no CVA tenderness, Extremities: Normal inspection, no peripheral edema or erythema, calfs nontender to palpation MSK: Patient with bruise to left shoulder, left chest wall, left hip, pain with palpation to left posterior hip, no pain with palpation to right or left anterio r hip and no pelvis instability, full ROM of neck, shoulders, and knees Psych:TEODORO- calm and cooperative Skin: stage II to sacrum with blister Results & Data Results & Data ([facility]) Vital Signs (Past 12 Hours) Vital Signs Temp Pulse Pulse Resp BP BP Pulse Ox 04/18/21 15:30 101 H 23 149/86 H 93 04/18/21 15:00 102 H 24 94 04/18/21 14:41 104 H 20 167/91 H 96 04/18/21 14:39 103 H 103 H 22 167/91 H 95 04/18/21 12:55 94 04/18/21 12:54 36.4 C L 87 20 172/126 H 94 Laboratory Results Abnormal lab results 04/18/21 04/18/21 04/18/21 Range/Units 13:45 13:45 14:07 Neut # (Auto) 8.70 H (1.4-6.5) K/uL Lymph # (Auto) 0.53 L (1.2-3.4) K/uL [place] # (Auto) 0.76 H (0.11-0.59) K/uL Carbon Dioxide 16 L (21-32) mmol/L Anion Gap 19.0 H (3-11) BUN 30 H (7-18) mg/dl BUN/Creatinine Ratio 26.3 H (10-20) Glucose 272 H (70-99) mg/dl Magnesium 2.5 H (1.8-2.4) mg/dl AST 63 H (15-37) U/L Total Creatine Kinase 1616 H (26-192) U/L CK-MB (CK-2) 24.3 H (0.5-3.6) ng/ml Albumin 3.3 L (3.4-5.0) gm/dl Globulin 4.3 H (2.5-4.0) gm/dl Albumin/Globulin Ratio 0.8 L (0.9-2) Urine Protein 2+ H (Negative) Urine Glucose (UA) Trace H (Negative) Urine Ketones 4+ H (Negative) Urine Blood 1+ H (Negative) U Epithel Cells (Auto) 10-20 H (0-5) /lpf SARS-CoV-2, RNA, NAAT (NEGATIVE) 04/18/21 Range/Units 14:35 Neut # (Auto) (1.4-6.5) K/uL Lymph # (Auto) (1.2-3.4) K/uL [place] # (Auto) (0.11-0.59) K/uL Carbon Dioxide (21-32) mmol/L Anion Gap (3-11) BUN (7-18) mg/dl BUN/Creatinine Ratio (10-20) Glucose (70-99) mg/dl Magnesium (1.8-2.4) mg/dl AST (15-37) U/L Total Creatine Kinase (26-192) U/L CK-MB (CK-2) (0.5-3.6) ng/ml Albumin (3.4-5.0) gm/dl Globulin (2.5-4.0) gm/dl Albumin/Globulin Ratio (0.9-2) Urine Protein (Negative) Urine Glucose (UA) (Negative) Urine Ketones (Negative) Urine Blood (Negative) U Epithel Cells (Auto) (0-5) /lpf SARS-CoV-2, RNA, NAAT POSITIVE A* (NEGATIVE) Diagnostic Findings Chest X-Ray 04/18/21 13:35 XR chest 1V portable CLINICAL HISTORY: SEPSIS. . Evaluate cardiac pulmonary status COMPARISON STUDY: 06/13/2018 TECHNIQUE: 1 view of the chest FINDINGS: Single frontal view of the chest demonstrates the cardiomediastinal silhouette to be within normal limits. There is again asymmetric elevation of the right hemidiaphragm. There is a patchy alveolar opacity present within the left midlung highly suspicious for early pneumonia. The remainder of the lungs are clear. There is no evidence for pleural effusion. There is no evidence for vascular congestion. There is no acute osseous pathology. IMPRESSION: Patchy alveolar opacity in the left midlung peripherally highly suspicious for early pneumonia. ACT 112: Negative or not required by law. Electronically signed by: Vineet Mcneal M.D. 04/18/2021 2:[address] 04/18/21 13:35 CT head/brain wo con CLINICAL HISTORY: ams COMPARISON STUDY: No previous studies for comparison. CT DOSE: 1424.24 mGycm TECHNIQUE: Standard CT of the Brain was performed without IV contrast. A dose lowering technique was utilized adhering to the principles of ALARA. FINDINGS: Extraaxial space: There is no evidence for subdural hematoma. There are no extra-axial fluid collections. Ventricles and cisterns: The ventricles are mildly dilated bilaterally. There is no evidence for midline shift or mass effect. Parenchyma: There is no subarachnoid or intraparenchymal hemorrhage. There is no evidence for an acute infarct or cerebral edema. There is mild cerebral cortical atrophy and decreased attenuation in the periventricular white matter representing remote small vessel disease. There are no gross mass lesions. Osseous structures: There is no evidence for an acute fracture. The visualized paranasal sinuses are clear. The mastoid air cells are clear bilaterally. Soft tissues: There is no evidence for focal soft tissue swelling. IMPRESSION: No acute intracerebral pathology. Cerebral cortical atrophy and remote small vessel disease. ACT 112: Negative or not required by law. Electronically signed by: Vineet Mcneal M.D. 04/18/2021 2:20 PM Medications Administered Discontinued Medications Sodium Chloride (Nss 1000ml) 1,000 mls @ 999 mls/hr IV .Q1H1M ONE Stop: 04/18/21 14:35 Last Infusion: 04/18/21 15:07 Dose: 0 mls/hr Documented by: [id number] Admin: 04/18/21 13:50 Dose: 999 mls/hr Documented by: [id number] Cefepime HCl (Maxipime) 2,000 mg in 20 mls @ 5 mls/min IV NOW STA; Protocol Stop: 04/18/21 14:36 Last Admin: 04/18/21 14:59 Dose: 5 mls/min Documented by: [id number] ECG Additional Comments: Sinus tachycardia Left anterior fascicular block Possible Anterolateral infarct (cited on or before 13-JUN-2018) Abnormal ECG When compared with ECG of 13-JUN-2018 12:09, ME interval has decreased Code Status & VTE Plan Code Status CODE: FULL - patient unable to comprehend at this time and no family/contacts available for information VTE: SCDS, heparin 5000 units Sq TID VTE Prophylaxis Plan VTE Prophylaxis will be ordered: Yes Supervising Physician Co-Signing Physician Notes I verified all bahena points and agree with CHUCHO De La Torre with the following exceptions and/or additions: with the following exceptions and/or additions: 76 yo female admission after being found down on the ground at home. Patient unable to provide any history. Collateral history taken from daughter by CHUCHO as above. O/E Alert but disorientated x2, orientated to self only R > L resting tremor with cogwheel rigidity b/l Stage 2 sacral ulcer on back without surrounding cellulitis Mid thoracic central pain on palpation Left SI joint pain on palpation A/P COVID-19 - no specific treatment for this, on room air Rhabdomyolysis - agree with gentle fluid hydration as above Anion gap metabolic acidosis - suspected starvation ketosis, LR overnight. Monitor phosphorus with restarting her diet. Hold metformin. Parkinson's disease - Give her usual Sinemet, SLT assessment for swallowing PG Care Time/CCT Total # of Minutes Spent Total Time Spent with Patient: Total time spent is greater than 50% in coordination of care (as documented) at patient's floor/unit and/or counseling patient: Coding Level of Care Code 06391 Initial Inpt Care Lvl 3 Diagnoses COVID U07.1 Metabolic encephalopathy G93.41 Increased anion gap metabolic acidosis E87.2 Diabetes E11.9 Parkinsons disease G20 HLD (hyperlipidemia) E78.5 Rhabdomyolysis M62.82 Pressure injury of back, stage 2 L89.102
[2021-04-18 16:22] LABS: Amphetamines+Metham, Urine Neg (Neg); Barbiturates, Urine Neg (Neg); Benzodiazepine, Urine Neg (Neg); Cocaine, Urine Neg (Neg); MDMA (Ecstacy), Urine Neg (Neg); Methadone, Urine Neg (Neg); Opiate, Urine Neg (Neg); Phencyclidine, Urine Neg (Neg)
[2021-04-18 16:31] LABS: Fibrinogen 546 mg/dl (184-400)
[2021-04-18] MEDS ORDERED: THIAMINE HCL 200 MG in SODIUM CHLORIDE 0.9% 50 ML IV STA (16:39)
[2021-04-18 16:58] LABS: C Reactive Protein 9.68 mg/dl (0-0.29)
[2021-04-18 17:06] LABS: Phosphorus 2.1 mg/dl (2.5-4.9)
[2021-04-18] MEDS ORDERED: CARBIDOPA/LEVODOPA 25/100MG TAB PO STA (17:13)
--- NOTE | 2021-04-18 17:21 | Electrocardiogram Report ---
Test Reason : Blood Pressure : / mmHG Vent. Rate : 108 BPM Atrial Rate : 108 BPM P-R Int : 206 ms QRS Dur : 076 ms QT Int : 348 ms P-R-T Axes : 046 -72 031 degrees QTc Int : 466 ms Poor data quality, interpretation may be adversely affected Sinus tachycardia Left anterior fascicular block Possible Anterolateral infarct (cited on or before 13-JUN-2018) Abnormal ECG When compared with ECG of 13-JUN-2018 12:09, DE interval has decreased Confirmed by Nakul Thompson ([id number]) on 04/18/2021 5:20:48 PM Referred By: REFERRED SELF Confirmed By:Artur Thompson
--- NOTE | 2021-04-18 17:51 | XRay Report ---
XR hip LT 2V w pelvis CLINICAL HISTORY: left hip pain. COMPARISON STUDY: 05/19/2019 TECHNIQUE: AP pelvis and left hip 2 views FINDINGS: Bones: There is no evidence for an acute fracture or dislocation. There is no lytic or blastic lesion . Joints: Mild degenerative changes again seen involving the left hip joint space. The bones are in nikole tomic alignment. Lumbar spine: The lower lumbar spine was included on the AP pelvis demonstrates degenerative changes. Soft tissues: There is no focal soft tissue abnormality. There is no radiopaque foreign body. IMPRESSION: No acute osseous pathology. Mild degenerative changes are present. ACT 112: Negative or not required by law. Electronically signed by: Vineet Mcneal M.D. 04/18/2021 5:50 PM
[2021-04-18] MEDS: LACTATED RINGER'S 1,000 ML IV SCH (18:24)
[2021-04-19] MEDS ORDERED: METOPROLOL TARTRATE 1 MG/ML VIAL IV PRN (02:08)
[2021-04-19] MEDS ORDERED: Heparin IV Adult Wt-Based Standard *NO* Bolus Protocol ONE (02:14)
[2021-04-19] MEDS ORDERED: METOPROLOL TARTRATE 25 MG TAB PO SCH (02:20)
--- NOTE | 2021-04-19 02:27 | Communication Note ---
Date of Service: April 19, 2021 Night team was paged by nursing at 2:04 am regarding sudden tachycardia. EKG was obtained and showed atrial flutter. I placed orders for a heparin drip, metoprolol tartrate 25mg BID and prn 5mg IV dose for rate control. I ordered K riders in an effort to raise K level > 4.0. I placed cardiology consult in the event cardioversion is necessary.
[2021-04-19] MEDS ORDERED: HEPARIN SODIUM/DEXTROSE 25,000 UNITS/500 ML BAG IV SCH (02:45)
[2021-04-19] MEDS ORDERED: DEXTROSE 50% 50 ML SYRINGE IV PRN (02:57)
[2021-04-19] MEDS ORDERED: CARBOHYDRATES FOR HYPOGLYCEMIA PO PRN (02:57)
[2021-04-19] MEDS ORDERED: GLUCAGON FOR INJ 1 MG VIAL SQ PRN (02:57)
[2021-04-19] MEDS ORDERED: FOLIC ACID 400 MCG TAB PO SCH (02:57)
[2021-04-19] MEDS ORDERED: GLUCOSE 10 TABS/TUBE PO PRN (02:57)
[2021-04-19] MEDS ORDERED: ONDANSETRON INJ 2 MG/ML 2 ML VIAL IV PRN (02:57)
[2021-04-19] MEDS ORDERED: GLUCOSE 40% GEL 15 GM TUBE PO PRN (02:57)
[2021-04-19] MEDS: POTASSIUM CHLORIDE / WTR 10 MEQ/100 ML PLCT IV SCH ×2 (04:17→05:51)
[2021-04-19] MEDS: LACTATED RINGER'S 1,000 ML IV SCH ×2 (04:17→18:02)
[2021-04-19] MEDS: CARBIDOPA/LEVODOPA 25/100MG TAB PO SCH ×5 (05:08→20:41)
[2021-04-19] MEDS: INSULIN ASPART 100 UNITS/ML 3 ML PEN SC SCH ×5 (05:15→21:07)
[2021-04-19 07:39] LABS: Basophils # (auto) 0.01 K/uL (0-0.2); Basophils % (auto) 0.1 %; Hematocrit (blood only) 40.9 % (37-47); Hemoglobin 13.7 g/dL (12.0-16.0); Lymphocytes # (auto) 0.44 K/uL (1.2-3.4); Lymphocytes % (auto) 4.9 %; Mean Corpuscular Hemoglobin 29.5 pg (25-34); Mean Corpuscular Hgb Conc 33.5 g/dL (32-36); Mean Platelet Volume 10.1 fL (7.4-10.4); Monocytes # (auto) 0.52 K/uL (0.11-0.59); Monocytes % (auto) 5.7 %; Neutrophils # (auto) 8.08 K/uL (1.4-6.5); Neutrophils % (auto) 89.3 %; Platelet Count 205 K/uL (130-400); RDW Coefficient of Variation 12.9 % (11.5-14.5); RDW Standard Deviation 41.2 fL (36.4-46.3); Red Blood Count 4.65 M/uL (4.2-5.4); White Blood Count 9.05 K/uL (4.8-10.8)
[2021-04-19 07:41] LABS: BUN Creatinine Ratio 24.6 (10-20); Creatinine Clr Calc Pharmacy 37.9 ml/min; Est GFR (African American) 55.7 ml/min; Est GFR (Non-African American) 48.1 ml/min; Magnesium 2.4 mg/dl (1.8-2.4); Potassium 3.6 mmol/L (3.5-5.1)
[2021-04-19] MEDS: THIAMINE HCL 200 MG in SODIUM CHLORIDE 0.9% 50 ML IV SCH (08:52)
[2021-04-19] MEDS ORDERED: lisinopril 10 MG TAB PO SCH (09:00)
--- NOTE | 2021-04-19 09:11 | Hospitalist Progress Note ---
Date of Service April 19, 2021 Assessment & Plan (1) COVID: Plan: Unsure of day of illness minimal changes on CXR and only requiring 2L NC, not in distress continue dexamethasone appears to have COVID encephalopathy, dysphagia Coresafe placed to give Sinemet, likely start tube feeds tomorrow monitor respiratory status (2) Metabolic encephalopathy: Plan: Multiple causes at this time- likely related to her acidosis and ketosis- unsure of her baseline could be due to COVID encephalopathy as she is exhibiting dysphagia continue Thiamine and Folate IV - Cr stable - Tox screen negative - ETOH level <3.0 look for improvement in mental status with supportive care (3) Dysphagia: Plan: cannot swallow safely, appreciate speech therapy evaluation Coresafe placed for medications, likely start tube feeds tomorrow Pepcid prophylaxis since she is not eating likely will need instrument evaluation to gauge severity of dysphagia (4) Rhabdomyolysis: Plan: Unknown mechanism of how she ended up on the floor -Mild at 1616 - continue IV fluids for today, LR at 100cc/hr - CPK coming down, it is 672, Cr is 1.25 repeat labs in AM (5) Increased anion gap metabolic acidosis: Plan: likely combination of starvation ketosis, mild rhabdomyolysis. - Continue with volume replacement - HCO3 up to 21 today (6) Diabetes: Plan: DMII on metformin - Glucose on arrival 272- last level we have 159 (2019) - Aspart sliding scale 100-140 (with CF 20) - Goal <180 continue Novolog SS, monitor for hypoglycemia (7) Parkinsons disease: Plan: Continue with Carbidopa-Levadopa placed Coresafe since she cannot swallow, d/w pharmacy, rapid acting Sinemet can be crushed (8) HLD (hyperlipidemia): Plan: Hold Zocor until CKs downtrend- although not likely related to her statin use (9) Pressure injury of back, stage 2: Plan: Present on admission secondary to patient being found down at home - Optifoam placed to sacrum and heels - Offload every 2 hours Admission and Anticipated Discharge Date Admission Date: April 18, 2021 Subjective reviewed chart, patient admitted with rhabdomyolysis, CPK coming down Cr is stable discussed possible atrial flutter with Dr. Thompson, he feels it is artifact from her Parkinson's disease will stop heparin drip she is shaking a lot, d/w pharmacy, she cannot swallow but we can crush her rapid acting Sinemet and give via coresafe, RN will place continue IV fluids for today, repeat labs later she is on 2L NC, unsure if this is actually COVID pneumonia, CXR was not bad, maybe a patchy infiltrate in left lung no respiratory distress spoke with the patient's daughter over the phone, she is in [place] explained that the patient cannot swallow, placed Coresafe answered her questions d/w speech therapy, patient did not do well with thing liquids, might have been okay with applesauce but would need instrument study she will assess again tomorrow, she agrees with NPO status Review of Systems Review of Systems: All systems reviewed & are unremarkable except as noted in Subjective Constitutional: + fatigue and + weakness; no fever and no chills Respiratory: + cough; no dyspnea and no dyspnea on exertion Cardiovascular: no chest pain Gastrointestinal: no abdominal pain, no nausea, no vomiting, no constipation and no diarrhea/loose stools Musculoskeletal: + muscle weakness; no back pain and no joint pain Physical Exam Physical Exam: General: well developed, thin, no distress Neck: supple, trachea midline, normal thyroid Lungs: clear to auscultation bilaterally, normal respiratory effort, no accessory muscle use, no distress Heart: tachycardic S1 and S2, no murmur, peripheral pulses normal, capillary refill normal, no edema Abdomen: soft, NT, ND, + BS, no hepatomegaly, normal to percussion Extremities: normal in appearance, no cyanosis, no petechiae, strength is 5/5 bilaterally Neuro: awake, cooperative, moves all extremities, no focal motor deficits, + dysphagia, + resting tremors bilaterally, severe Skin: bruising on lower extremities Psych: Awake, oriented to person, not a great historian, knows she is in hospital, cooperative, flat affect Results & Data Results & Data ([facility]) Vital Signs (Past 12 Hours) Vital Signs Temp Pulse Pulse Resp BP BP Pulse Ox 04/19/21 07:50 37.5 C 109 H 21 162/73 H 92 04/19/21 02:57 37.1 C 82 18 165/84 H 96 04/19/21 02:12 103 H 149/108 H 04/19/21 01:44 95 04/19/21 01:04 94 04/19/21 00:44 96 H 150/93 H 92 04/18/21 23:49 91 04/18/21 22:02 97 H 155/87 H 94 04/18/21 21:50 94 Laboratory Results Laboratory Results - last 24 hr 04/18/21 04/18/21 04/18/21 13:45 13:45 13:45 WBC 10.01 RBC 5.12 Hgb 15.1 Hct 45.2 MCV 88.3 MCH 29.5 MCHC 33.4 RDW Std Deviation 41.3 RDW Coeff of Ilan 12.7 Plt Count 207 MPV 9.8 Immature Gran % (Auto) 0.1 Neut % (Auto) 86.9 Lymph % (Auto) 5.3 [place] % (Auto) 7.6 Eos % (Auto) 0.0 Baso % (Auto) 0.1 Neut # (Auto) 8.70 H Lymph # (Auto) 0.53 L [place] # (Auto) 0.76 H Eos # (Auto) 0.00 Baso # (Auto) 0.01 Immature Gran # (Auto) 0.01 PT 10.4 INR 1.0 APTT 22.6 PTT Ratio 0.9 Fibrinogen Sodium 142 Potassium 3.6 Chloride 107 Carbon Dioxide 16 L Anion Gap 19.0 H BUN 30 H Creatinine 1.13 Est Cr Clr Drug Dosing Not Reportable Est GFR ( Amer) 53.9 Est GFR (Non-Af Amer) 46.5 BUN/Creatinine Ratio 26.3 H Glucose 272 H POC Glucose Lactate Calcium 9.3 Phosphorus Magnesium 2.5 H Ferritin Total Bilirubin 0.6 AST 63 H ALT 39 Alkaline Phosphatase 69 Lactate Dehydrogenase Total Creatine Kinase 1616 H CK-MB (CK-2) 24.3 H CK/CKMB % Calc 1.5 Troponin I < 0.015 C-Reactive Protein NT-Pro-B Natriuret Pep Total Protein 7.6 Albumin 3.3 L Globulin 4.3 H Albumin/Globulin Ratio 0.8 L Procalcitonin Specimen Hemolysis Urine Color Urine Appearance Urine pH Ur Specific [place] Urine Protein Urine Glucose (UA) Urine Ketones Urine Blood Urine Nitrite Urine Bilirubin Urine Urobilinogen Ur Leukocyte Esterase Urine WBC (Auto) Urine RBC (Auto) U Hyaline Cast (Auto) U Epithel Cells (Auto) Urine Bacteria (Auto) Urine Opiates Screen Ur Methadone, Qual Urine Barbiturates Ur Phencyclidine (PCP) U Amphetamin/Meth Scrn MDMA (Ecstasy) Screen U Benzodiazepines Scrn Ur Cocaine Metabolite U Marijuana (THC) Screen Ethyl Alcohol mg/dL SARS-CoV-2, RNA, NAAT 04/18/21 04/18/21 04/18/21 13:45 13:45 13:45 WBC RBC Hgb Hct MCV MCH MCHC RDW Std Deviation RDW Coeff of Ilan Plt Count MPV Immature Gran % (Auto) Neut % (Auto) Lymph % (Auto) [place] % (Auto) Eos % (Auto) Baso % (Auto) Neut # (Auto) Lymph # (Auto) [place] # (Auto) Eos # (Auto) Baso # (Auto) Immature Gran # (Auto) PT INR APTT PTT Ratio Fibrinogen Sodium Potassium Chloride Carbon Dioxide Anion Gap BUN Creatinine Est Cr Clr Drug Dosing Est GFR ( Amer) Est GFR (Non-Af Amer) BUN/Creatinine Ratio Glucose POC Glucose Lactate 1.8 Calcium Phosphorus Magnesium Ferritin Total Bilirubin AST ALT Alkaline Phosphatase Lactate Dehydrogenase Total Creatine Kinase CK-MB (CK-2) CK/CKMB % Calc Troponin I C-Reactive Protein NT-Pro-B Natriuret Pep Total Protein Albumin Globulin Albumin/Globulin Ratio Procalcitonin 0.32 Specimen Hemolysis Urine Color Urine Appearance Urine pH Ur Specific [place] Urine Protein Urine Glucose (UA) Urine Ketones Urine Blood Urine Nitrite Urine Bilirubin Urine Urobilinogen Ur Leukocyte Esterase Urine WBC (Auto) Urine RBC (Auto) U Hyaline Cast (Auto) U Epithel Cells (Auto) Urine Bacteria (Auto) Urine Opiates Screen Neg Ur Methadone, Qual Neg Urine Barbiturates Neg Ur Phencyclidine (PCP) Neg U Amphetamin/Meth Scrn Neg MDMA (Ecstasy) Screen Neg U Benzodiazepines Scrn Neg Ur Cocaine Metabolite Neg U Marijuana (THC) Screen Neg Ethyl Alcohol mg/dL SARS-CoV-2, RNA, NAAT 04/18/21 04/18/21 04/18/21 14:07 14:35 16:05 WBC RBC Hgb Hct MCV MCH MCHC RDW Std Deviation RDW Coeff of Ilan Plt Count MPV Immature Gran % (Auto) Neut % (Auto) Lymph % (Auto) [place] % (Auto) Eos % (Auto) Baso % (Auto) Neut # (Auto) Lymph # (Auto) [place] # (Auto) Eos # (Auto) Baso # (Auto) Immature Gran # (Auto) PT INR APTT PTT Ratio Fibrinogen Sodium Potassium Chloride Carbon Dioxide Anion Gap BUN Creatinine Est Cr Clr Drug Dosing Est GFR ( Amer) Est GFR (Non-Af Amer) BUN/Creatinine Ratio Glucose POC Glucose Lactate Calcium Phosphorus Magnesium Ferritin Total Bilirubin AST ALT Alkaline Phosphatase Lactate Dehydrogenase Total Creatine Kinase CK-MB (CK-2) CK/CKMB % Calc Troponin I C-Reactive Protein NT-Pro-B Natriuret Pep Total Protein Albumin Globulin Albumin/Globulin Ratio Procalcitonin Specimen Hemolysis Urine Color Dark Yellow Urine Appearance Clear Urine pH 6.0 Ur Specific [place] 1.022 Urine Protein 2+ H Urine Glucose (UA) Trace H Urine Ketones 4+ H Urine Blood 1+ H Urine Nitrite Negative Urine Bilirubin Negative Urine Urobilinogen Negative Ur Leukocyte Esterase Negative Urine WBC (Auto) 0 Urine RBC (Auto) 0-4 U Hyaline Cast (Auto) 1-5 U Epithel Cells (Auto) 10-20 H Urine Bacteria (Auto) Negative Urine Opiates Screen Ur Methadone, Qual Urine Barbiturates Ur Phencyclidine (PCP) U Amphetamin/Meth Scrn MDMA (Ecstasy) Screen U Benzodiazepines Scrn Ur Cocaine Metabolite U Marijuana (THC) Screen Ethyl Alcohol mg/dL < 3.0 SARS-CoV-2, RNA, NAAT POSITIVE A* 04/18/21 04/18/21 04/18/21 16:05 16:05 16:05 WBC RBC Hgb Hct MCV MCH MCHC RDW Std Deviation RDW Coeff of Ilan Plt Count MPV Immature Gran % (Auto) Neut % (Auto) Lymph % (Auto) [place] % (Auto) Eos % (Auto) Baso % (Auto) Neut # (Auto) Lymph # (Auto) [place] # (Auto) Eos # (Auto) Baso # (Auto) Immature Gran # (Auto) PT INR APTT PTT Ratio Fibrinogen 546 H Sodium Potassium Chloride Carbon Dioxide Anion Gap BUN Creatinine Est Cr Clr Drug Dosing Est GFR ( Amer) Est GFR (Non-Af Amer) BUN/Creatinine Ratio Glucose POC Glucose Lactate Calcium Phosphorus 2.1 L Magnesium Ferritin 709.0 H Total Bilirubin AST ALT Alkaline Phosphatase Lactate Dehydrogenase 443 H Total Creatine Kinase CK-MB (CK-2) CK/CKMB % Calc Troponin I C-Reactive Protein 9.68 H NT-Pro-B Natriuret Pep 683 Total Protein Albumin Globulin Albumin/Globulin Ratio Procalcitonin Specimen Hemolysis Urine Color Urine Appearance Urine pH Ur Specific [place] Urine Protein Urine Glucose (UA) Urine Ketones Urine Blood Urine Nitrite Urine Bilirubin Urine Urobilinogen Ur Leukocyte Esterase Urine WBC (Auto) Urine RBC (Auto) U Hyaline Cast (Auto) U Epithel Cells (Auto) Urine Bacteria (Auto) Urine Opiates Screen Ur Methadone, Qual Urine Barbiturates Ur Phencyclidine (PCP) U Amphetamin/Meth Scrn MDMA (Ecstasy) Screen U Benzodiazepines Scrn Ur Cocaine Metabolite U Marijuana (THC) Screen Ethyl Alcohol mg/dL SARS-CoV-2, RNA, NAAT 04/19/21 04/19/21 04/19/21 05:14 06:35 06:35 WBC 9.05 RBC 4.65 Hgb 13.7 Hct 40.9 MCV 88.0 MCH 29.5 MCHC 33.5 RDW Std Deviation 41.2 RDW Coeff of Ilan 12.9 Plt Count 205 MPV 10.1 Immature Gran % (Auto) 0.0 Neut % (Auto) 89.3 Lymph % (Auto) 4.9 [place] % (Auto) 5.7 Eos % (Auto) 0.0 Baso % (Auto) 0.1 Neut # (Auto) 8.08 H Lymph # (Auto) 0.44 L [place] # (Auto) 0.52 Eos # (Auto) 0.00 Baso # (Auto) 0.01 Immature Gran # (Auto) 0.00 PT INR APTT PTT Ratio Fibrinogen Sodium 146 H Potassium 3.6 Chloride 114 H Carbon Dioxide 20 L Anion Gap 12.0 H BUN 27 H Creatinine 1.10 Est Cr Clr Drug Dosing 37.9 Est GFR ( Amer) 55.7 Est GFR (Non-Af Amer) 48.1 BUN/Creatinine Ratio 24.6 H Glucose 253 H POC Glucose 246 H Lactate Calcium 9.0 Phosphorus Magnesium 2.4 Ferritin Total Bilirubin AST ALT Alkaline Phosphatase Lactate Dehydrogenase Total Creatine Kinase 934 H CK-MB (CK-2) CK/CKMB % Calc Troponin I C-Reactive Protein NT-Pro-B Natriuret Pep Total Protein Albumin Globulin Albumin/Globulin Ratio Procalcitonin Specimen Hemolysis Urine Color Urine Appearance Urine pH Ur Specific [place] Urine Protein Urine Glucose (UA) Urine Ketones Urine Blood Urine Nitrite Urine Bilirubin Urine Urobilinogen Ur Leukocyte Esterase Urine WBC (Auto) Urine RBC (Auto) U Hyaline Cast (Auto) U Epithel Cells (Auto) Urine Bacteria (Auto) Urine Opiates Screen Ur Methadone, Qual Urine Barbiturates Ur Phencyclidine (PCP) U Amphetamin/Meth Scrn MDMA (Ecstasy) Screen U Benzodiazepines Scrn Ur Cocaine Metabolite U Marijuana (THC) Screen Ethyl Alcohol mg/dL SARS-CoV-2, RNA, NAAT 04/19/21 07:56 WBC RBC Hgb Hct MCV MCH MCHC RDW Std Deviation RDW Coeff of Ilan Plt Count MPV Immature Gran % (Auto) Neut % (Auto) Lymph % (Auto) [place] % (Auto) Eos % (Auto) Baso % (Auto) Neut # (Auto) Lymph # (Auto) [place] # (Auto) Eos # (Auto) Baso # (Auto) Immature Gran # (Auto) PT INR APTT PTT Ratio Fibrinogen Sodium Potassium Chloride Carbon Dioxide Anion Gap BUN Creatinine Est Cr Clr Drug Dosing Est GFR ( Amer) Est GFR (Non-Af Amer) BUN/Creatinine Ratio Glucose POC Glucose 217 H Lactate Calcium Phosphorus Magnesium Ferritin Total Bilirubin AST ALT Alkaline Phosphatase Lactate Dehydrogenase Total Creatine Kinase CK-MB (CK-2) CK/CKMB % Calc Troponin I C-Reactive Protein NT-Pro-B Natriuret Pep Total Protein Albumin Globulin Albumin/Globulin Ratio Procalcitonin Specimen Hemolysis Urine Color Urine Appearance Urine pH Ur Specific [place] Urine Protein Urine Glucose (UA) Urine Ketones Urine Blood Urine Nitrite Urine Bilirubin Urine Urobilinogen Ur Leukocyte Esterase Urine WBC (Auto) Urine RBC (Auto) U Hyaline Cast (Auto) U Epithel Cells (Auto) Urine Bacteria (Auto) Urine Opiates Screen Ur Methadone, Qual Urine Barbiturates Ur Phencyclidine (PCP) U Amphetamin/Meth Scrn MDMA (Ecstasy) Screen U Benzodiazepines Scrn Ur Cocaine Metabolite U Marijuana (THC) Screen Ethyl Alcohol mg/dL SARS-CoV-2, RNA, NAAT Medications Administered Current Inpatient Medications Acetaminophen (Acetaminophen 325 Mg Tab) 650 mg PO Q4H PRN PRN Reason: Pain or Fever Stop: 05/19/21 02:56 Carbidopa/Levodopa (Carbidopa/Levodopa 25/100mg Tab) 2 tab PO QID CHIKI Stop: 05/19/21 02:56 Last Admin: 04/19/21 08:50 Dose: Not Given Documented by: Dextrose (Dextrose 50% 50 Ml Syringe) 25 - 50 ml IV UD PRN; Protocol PRN Reason: Hypoglycemia Protocol Stop: 05/19/21 02:56 Folic Acid (Folic Acid 400 Mcg Tab) 800 mcg PO BID [facility] Stop: 05/19/21 02:56 Last Admin: 04/19/21 05:08 Dose: Not Given Documented by: Glucagon (Glucagon For Inj 1 Mg Vial) 1 mg SQ UD PRN; Protocol PRN Reason: Hypoglycemia Protocol Stop: 05/19/21 02:56 Glucose (Glucose 10 Tabs/Tube) 4 - 8 tabs PO UD PRN; Protocol PRN Reason: Hypoglycemia Protocol Stop: 05/19/21 02:56 Glucose (Glucose 40% Gel 15 Gm Tube) 15 - 30 gm PO UD PRN; Protocol PRN Reason: Hypoglycemia Protocol Stop: 05/19/21 02:56 Lactated Ringer's (Lr) 1,000 mls @ 100 mls/hr IV .Q10H [facility] Stop: 05/18/21 18:20 Last Admin: 04/19/21 04:17 Dose: 100 mls/hr Documented by: Heparin Sodium/Dextrose (Heparin Sodium/Dextrose) 25,000 units in 500 mls @ 21 mls/hr IV .[id number] [facility]; Protocol Stop: 05/19/21 02:44 Last Titration: 04/19/21 07:16 Dose: 1,050 units/hr, 21 mls/hr Documented by: Thiamine HCl 200 mg/ Sodium (Chloride) 52 mls @ 208 mls/hr IV QAM [facility] Stop: 05/19/21 08:59 Last Admin: 04/19/21 08:52 Dose: 208 mls/hr Documented by: Insulin Aspart (Insulin Aspart 100 Units/Ml 3 Ml Pen) 0 units SC ACHS CHIKI Stop: 05/19/21 03:29 Last Admin: 04/19/21 08:49 Dose: 4 units Documented by: Lisinopril (Lisinopril 10 Mg Tab) 10 mg PO DAILY [facility] Stop: 05/19/21 08:59 Last Admin: 04/19/21 08:50 Dose: Not Given Documented by: Metoprolol Tartrate (Metoprolol Tartrate 1 Mg/Ml Vial) 5 mg IV Q5M PRN PRN Reason: Tachycardia Stop: 05/19/21 02:07 Last Admin: 04/19/21 02:12 Dose: 5 mg Documented by: Metoprolol Tartrate (Metoprolol Tartrate 25 Mg Tab) 25 mg PO BID CHIKI Stop: 05/19/21 02:19 Last Admin: 04/19/21 05:07 Dose: Not Given Documented by: Miscellaneous (Carbohydrates For Hypoglycemia ) 15 - 30 gm PO UD PRN PRN Reason: Hypoglycemia Protocol Stop: 05/19/21 02:56 Ondansetron HCl (Ondansetron Inj 2 Mg/Ml 2 Ml Vial) 4 mg IV Q6H PRN PRN Reason: Nausea Stop: 05/19/21 02:56 Polyethylene Glycol (Polyethylene (Miralax) 17 Gm Pack) 17 gm PO DAILY PRN PRN Reason: Constipation Stop: 05/19/21 02:56 PG Care Time/CCT Total # of Minutes Spent Total Time Spent with Patient: Total time spent is greater than 50% in coordination of care (as documented) at patient's floor/unit and/or counseling patient: Coding Level of Care Code 65507 Subseq Hosp Care Lvl 3 Diagnoses COVID U07.1 Metabolic encephalopathy G93.41 Rhabdomyolysis M62.82 Increased anion gap metabolic acidosis E87.2 Diabetes E11.9 Parkinsons disease G20 HLD (hyperlipidemia) E78.5 Pressure injury of back, stage 2 L89.102 Dysphagia R13.10
[2021-04-19] MEDS: FAMOTIDINE 20 MG in SYRINGE 3 ML IV SCH ×2 (11:26→20:38)
[2021-04-19] MEDS: ENOXAPARIN INJ 30 MG/0.3 ML SYR SQ SCH ×2 (11:26→20:40)
[2021-04-19] MEDS: dexAMETHasone 6 MG in SYRINGE 0 ML IV SCH (11:26)
[2021-04-19] MEDS: FOLIC ACID 1 MG in SYRINGE 9.8 ML IV SCH (11:26)
[2021-04-19] MEDS ORDERED: ACETAMINOPHEN 1,000 MG/100 ML VIAL IV PRN (11:58)
[2021-04-19] MEDS: INSULIN HUMAN NPH SC SCH (12:16)
--- NOTE | 2021-04-19 12:41 | Electrocardiogram Report ---
Test Reason : Blood Pressure : / mmHG Vent. Rate : 107 BPM Atrial Rate : 264 BPM P-R Int : 000 ms QRS Dur : 070 ms QT Int : 306 ms P-R-T Axes : 069 -69 023 degrees QTc Int : 408 ms Poor data quality, interpretation may be adversely affected Artifact precludes assessment of atrial rhythm Left axis deviation Poor R wave progression, consider anterior NC vs. lead placement vs. LVH Abnormal ECG When compared with ECG of 18-APR-2021 14:00, Nonspecific T wave abnormality no longer evident in Lateral leads QT has shortened Confirmed by Nakul Thompson ([id number]) on 04/19/2021 12:41:06 PM Referred By: REFERRED SELF Confirmed By:Artur Thompson
--- NOTE | 2021-04-19 13:06 | XRay Report ---
KUB CLINICAL HISTORY: Enteric tube placement. FINDINGS: An AP, portable, supine abdominal radiograph is obtained. No prior studies are available fo r comparison at the time of dictation. An enteric tube has been placed. The tip projects over the dis ivette stomach. There is no evidence of bowel obstruction. Moderate fecal retention is noted in the colo n. No evidence of intraperitoneal free air is seen on this supine image. There are no abnormal abdomi nal calcifications. The skeletal structures are osteopenic and appear intact. There is moderate to ad vanced lumbosacral spondylosis. IMPRESSION: An enteric tube has been placed as above. Electronically signed by: Edy Jett M.D. 04/19/2021 1:04 PM
[2021-04-19 15:34] LABS: BUN Creatinine Ratio 21.2 (10-20); Calcium 8.7 mg/dl (8.5-10.1); Creatinine Clr Calc Pharmacy 33.4 ml/min; Est GFR (African American) 47.7 ml/min; Est GFR (Non-African American) 41.2 ml/min; Potassium 3.3 mmol/L (3.5-5.1)
[2021-04-20] MEDS: LACTATED RINGER'S 1,000 ML IV SCH ×2 (03:16→10:56)
[2021-04-20 07:44] LABS: Hematocrit (blood only) 37.4 % (37-47); Hemoglobin 12.2 g/dL (12.0-16.0); Immature Granulocytes # (auto) 0.01 K/uL (0.00-0.02); Immature Granulocytes % (auto) 0.1 %; Lymphocytes # (auto) 0.55 K/uL (1.2-3.4); Lymphocytes % (auto) 8.2 %; Mean Corpuscular Hemoglobin 28.8 pg (25-34); Mean Corpuscular Hgb Conc 32.6 g/dL (32-36); Mean Corpuscular Volume 88.4 fL (80-100); Mean Platelet Volume 10.1 fL (7.4-10.4); Monocytes % (auto) 5.9 %; Neutrophils # (auto) 5.77 K/uL (1.4-6.5); Neutrophils % (auto) 85.8 %; Platelet Count 191 K/uL (130-400); RDW Coefficient of Variation 12.9 % (11.5-14.5); RDW Standard Deviation 41.6 fL (36.4-46.3); Red Blood Count 4.23 M/uL (4.2-5.4); White Blood Count 6.73 K/uL (4.8-10.8)
[2021-04-20] MEDS ORDERED: PIPERACILL/TAZOBAC CONSULT ACTIVE PRN (07:59)
[2021-04-20] MEDS ORDERED: PIPERACILLIN/TAZOBACTAM 3.375 GM in DEXTROSE 5% 100 ML IV STA ×2 (08:04→08:15)
[2021-04-20 08:07] LABS: BUN Creatinine Ratio 32.6 (10-20); C Reactive Protein 6.74 mg/dl (0-0.29); Calcium 8.6 mg/dl (8.5-10.1); Creatinine Clr Calc Pharmacy 57.2 ml/min; Est GFR (African American) 91.4 ml/min; Est GFR (Non-African American) 78.9 ml/min; Magnesium 2.2 mg/dl (1.8-2.4); Potassium 3.2 mmol/L (3.5-5.1)
[2021-04-20] MEDS: CARBIDOPA/LEVODOPA 25/100MG TAB PO SCH ×4 (09:08→20:36)
[2021-04-20] MEDS: FOLIC ACID 1 MG in SYRINGE 9.8 ML IV SCH (09:08)
[2021-04-20] MEDS: ENOXAPARIN INJ 30 MG/0.3 ML SYR SQ SCH ×2 (09:09→20:36)
[2021-04-20] MEDS: dexAMETHasone 6 MG in SYRINGE 0 ML IV SCH (09:09)
[2021-04-20] MEDS: FAMOTIDINE 20 MG in SYRINGE 3 ML IV SCH ×2 (09:09→20:37)
[2021-04-20] MEDS: THIAMINE HCL 200 MG in SODIUM CHLORIDE 0.9% 50 ML IV SCH (09:10)
[2021-04-20] MEDS: INSULIN ASPART 100 UNITS/ML 3 ML PEN SC SCH ×4 (09:37→20:35)
[2021-04-20] MEDS: INSULIN HUMAN NPH SC SCH (09:56)
[2021-04-20] MEDS ORDERED: POTASSIUM CHLORIDE 20 MEQ/15 ML UDC NG STA (10:33)
--- NOTE | 2021-04-20 10:43 | Hospitalist Progress Note ---
Date of Service April 20, 2021 Assessment & Plan (1) COVID: Plan: Unsure of day of illness minimal changes on CXR and only requiring 2L NC, not in distress continue dexamethasone appears to have COVID encephalopathy, dysphagia Coresafe placed to give Sinemet, likely start tube feeds today monitor respiratory status (2) Metabolic encephalopathy: Plan: could be due to COVID encephalopathy as she is exhibiting dysphagia continue Thiamine and Folate IV - Cr stable - Tox screen negative - ETOH level <3.0 look for improvement in mental status with supportive care, tube feeds keep NPO with Coresafe (3) Dysphagia: Plan: cannot swallow safely, appreciate speech therapy evaluation they re-evaluated today, she aspirated on ice chips and applesauce Coresafe placed for medications, ordered tube feeds to start today Pepcid prophylaxis since she is not eating likely will need instrument evaluation to gauge severity of dysphagia (4) Rhabdomyolysis: Plan: Unknown mechanism of how she ended up on the floor -CK was 1616 on admission - treated with LR at 100cc/hr - CPK down to 300s, Cr is 0.7 repeat labs in AM (5) Hypernatremia: Plan: stop LR, give 1L of D5W 100mL free water flushes every 4 hours via Coresafe (6) Hypokalemia: Plan: 40mEq elixir via Coresafe today (7) Diabetes: Plan: DMII on metformin - Glucose on arrival 272- last level we have 159 (2019) - Aspart sliding scale 100-140 (with CF 20) - Goal <180 continue Novolog SS, monitor for hypoglycemia use NPH with dexamethasone in the morning (8) Increased anion gap metabolic acidosis: Plan: likely combination of starvation ketosis, mild rhabdomyolysis. - Continue with volume replacement - HCO3 up to 21 today (9) Parkinsons disease: Plan: Continue with Carbidopa-Levadopa via Coresafe tremors are better (10) HLD (hyperlipidemia): Plan: Hold Zocor (11) Pressure injury of back, stage 2: Plan: Present on admission secondary to patient being found down at home - Optifoam placed to sacrum and heels - Offload every 2 hours Admission and Anticipated Discharge Date Admission Date: April 18, 2021 Subjective patient is much more alert today, talking more clearly she has a cough but not much sputum, she says she feels a little short of breath we discussed why she is here with a fall at home, found on the floor, rhabdomyolysis and needing fluids reviewed labs, Cr is 0.7, CPK is down to 334, Na is up to 151, will change fluids to D5W K is low, will give 40mEq liquid KCl she denies any pain or nausea she has far less tremors today with the Sinemet she had a low grade fever, procalcitonin was normal, start on Zosyn for now speech therapy said she did poorly, aspirated on ice chips and apple sauce, keep NPO and give tube feeds Review of Systems Review of Systems: All systems reviewed & are unremarkable except as noted in Subjective Constitutional: + fatigue and + weakness; no fever Respiratory: + cough and + dyspnea Cardiovascular: no chest pain and no edema Gastrointestinal: no abdominal pain, no nausea, no vomiting, no constipation and no diarrhea/loose stools Physical Exam Physical Exam: General: well developed, thin, no distress Neck: supple, trachea midline, normal thyroid Lungs: clear to auscultation bilaterally, normal respiratory effort, no accessory muscle use, no distress Heart: tachycardic S1 and S2, no murmur, peripheral pulses normal, capillary refill normal, no edema Abdomen: soft, NT, ND, + BS, no hepatomegaly, normal to percussion Extremities: normal in appearance, no cyanosis, no petechiae, strength is 5/5 bilaterally Neuro: awake, cooperative, moves all extremities, no focal motor deficits, + dysphagia, + resting tremors bilaterally, less severe today Skin: bruising on lower extremities Psych: Awake, oriented to person, not a great historian, knows she is in hospital, cooperative, flat affect Results & Data Results & Data ([facility]) Vital Signs (Past 12 Hours) Vital Signs Temp Pulse Pulse Resp BP Pulse Ox 04/20/21 08:00 89 04/20/21 07:54 37.8 C H 90 16 164/79 H 94 04/20/21 03:16 36.9 C 92 H 27 H 162/90 H 92 Laboratory Results Laboratory Results - last 24 hr 04/19/21 04/19/21 04/19/21 11:43 14:55 16:16 WBC RBC Hgb Hct MCV MCH MCHC RDW Std Deviation RDW Coeff of Ilan Plt Count MPV Immature Gran % (Auto) Neut % (Auto) Lymph % (Auto) Jenkins % (Auto) Eos % (Auto) Baso % (Auto) Neut # (Auto) Lymph # (Auto) Jenkins # (Auto) Eos # (Auto) Baso # (Auto) Immature Gran # (Auto) Sodium 148 H Potassium 3.3 L Chloride 117 H Carbon Dioxide 21 Anion Gap 10.0 BUN 27 H Creatinine 1.25 H Est Cr Clr Drug Dosing 33.4 Est GFR ( Amer) 47.7 Est GFR (Non-Af Amer) 41.2 BUN/Creatinine Ratio 21.2 H Glucose 199 H POC Glucose 178 H 197 H Calcium 8.7 Magnesium Total Creatine Kinase 672 H C-Reactive Protein Procalcitonin 04/19/21 04/20/21 04/20/21 20:10 06:47 06:47 WBC RBC Hgb Hct MCV MCH MCHC RDW Std Deviation RDW Coeff of Ilan Plt Count MPV Immature Gran % (Auto) Neut % (Auto) Lymph % (Auto) Jenkins % (Auto) Eos % (Auto) Baso % (Auto) Neut # (Auto) Lymph # (Auto) Jenkins # (Auto) Eos # (Auto) Baso # (Auto) Immature Gran # (Auto) Sodium 151 H Potassium 3.2 L Chloride 119 H Carbon Dioxide 24 Anion Gap 8.0 BUN 24 H Creatinine 0.73 D Est Cr Clr Drug Dosing 57.2 Est GFR ( Amer) 91.4 Est GFR (Non-Af Amer) 78.9 BUN/Creatinine Ratio 32.6 H Glucose 169 H POC Glucose 140 H Calcium 8.6 Magnesium 2.2 Total Creatine Kinase 334 H C-Reactive Protein 6.74 H Procalcitonin 0.15 04/20/21 04/20/21 06:47 08:21 WBC 6.73 RBC 4.23 Hgb 12.2 Hct 37.4 MCV 88.4 MCH 28.8 MCHC 32.6 RDW Std Deviation 41.6 RDW Coeff of Ilan 12.9 Plt Count 191 MPV 10.1 Immature Gran % (Auto) 0.1 Neut % (Auto) 85.8 Lymph % (Auto) 8.2 Jenkins % (Auto) 5.9 Eos % (Auto) 0.0 Baso % (Auto) 0.0 Neut # (Auto) 5.77 Lymph # (Auto) 0.55 L Jenkins # (Auto) 0.40 Eos # (Auto) 0.00 Baso # (Auto) 0.00 Immature Gran # (Auto) 0.01 Sodium Potassium Chloride Carbon Dioxide Anion Gap BUN Creatinine Est Cr Clr Drug Dosing Est GFR ( Amer) Est GFR (Non-Af Amer) BUN/Creatinine Ratio Glucose POC Glucose 162 H Calcium Magnesium Total Creatine Kinase C-Reactive Protein Procalcitonin Medications Administered Current Inpatient Medications Acetaminophen (Acetaminophen 325 Mg Tab) 650 mg PO Q4H PRN PRN Reason: Pain or Fever Stop: 05/19/21 02:56 Carbidopa/Levodopa (Carbidopa/Levodopa 25/100mg Tab) 2 tab PO QID [facility]I Stop: 05/19/21 02:56 Last Admin: 04/20/21 09:08 Dose: 2 tab Documented by: Dextrose (Dextrose 50% 50 Ml Syringe) 25 - 50 ml IV UD PRN; Protocol PRN Reason: Hypoglycemia Protocol Stop: 05/19/21 02:56 Enoxaparin Sodium (Enoxaparin Inj 30 Mg/0.3 Ml Syr) 30 mg SQ BID CHIKI Stop: 05/19/21 09:59 Last Admin: 04/20/21 09:09 Dose: 30 mg Documented by: Glucagon (Glucagon For Inj 1 Mg Vial) 1 mg SQ UD PRN; Protocol PRN Reason: Hypoglycemia Protocol Stop: 05/19/21 02:56 Glucose (Glucose 10 Tabs/Tube) 4 - 8 tabs PO UD PRN; Protocol PRN Reason: Hypoglycemia Protocol Stop: 05/19/21 02:56 Glucose (Glucose 40% Gel 15 Gm Tube) 15 - 30 gm PO UD PRN; Protocol PRN Reason: Hypoglycemia Protocol Stop: 05/19/21 02:56 Thiamine HCl 200 mg/ Sodium (Chloride) 52 mls @ 208 mls/hr IV QAM [facility] Stop: 05/19/21 08:59 Last Infusion: 04/20/21 09:29 Dose: Infused Documented by: Dexamethasone 6 mg/ Syringe 1.5 mls @ 1 mls/min IV QAM [facility] Stop: 05/19/21 09:44 Last Admin: 04/20/21 09:09 Dose: 1 mls/min Documented by: Folic Acid 1 mg/ Syringe 10 mls @ 5 mls/min IV QAM [facility] Stop: 05/19/21 09:44 Last Admin: 04/20/21 09:08 Dose: 5 mls/min Documented by: Famotidine 20 mg/ Syringe 5 mls @ 2.5 mls/min IV BID [facility] Stop: 05/19/21 09:44 Last Admin: 04/20/21 09:09 Dose: 2.5 mls/min Documented by: Acetaminophen ([facility]) 1,000 mg in 100 mls @ 400 mls/hr IV Q8H PRN PRN Reason: Fever Stop: 04/22/21 11:57 Piperacillin Sod/Tazobactam (Sod 3.375 gm/ Dextrose) 115 mls @ 28.75 mls/hr IV Q8H [facility]I; Protocol Stop: 04/27/21 11:59 Dextrose (D5w) 1,000 mls @ 50 mls/hr IV .Q20H [facility] Stop: 05/20/21 10:44 Insulin Aspart (Insulin Aspart 100 Units/Ml 3 Ml Pen) 0 units SC ACHS [facility] Stop: 05/19/21 03:29 Last Admin: 04/20/21 09:37 Dose: 2 units Documented by: Insulin Human NPH (Insulin Human Nph) 24 units SC QAM [facility] Stop: 05/19/21 09:44 Last Admin: 04/20/21 09:56 Dose: 24 units Documented by: Miscellaneous (Carbohydrates For Hypoglycemia ) 15 - 30 gm PO UD PRN PRN Reason: Hypoglycemia Protocol Stop: 05/19/21 02:56 Miscellaneous Information (Piperacill/Tazobac Consult Active) 1 ea N/A UD PRN PRN Reason: Consult Stop: 05/20/21 07:58 Ondansetron HCl (Ondansetron Inj 2 Mg/Ml 2 Ml Vial) 4 mg IV Q6H PRN PRN Reason: Nausea Stop: 05/19/21 02:56 Polyethylene Glycol (Polyethylene (Miralax) 17 Gm Pack) 17 gm PO DAILY PRN PRN Reason: Constipation Stop: 05/19/21 02:56 PG Care Time/CCT Total # of Minutes Spent Total Time Spent with Patient: Total time spent is greater than 50% in coordination of care (as documented) at patient's floor/unit and/or counseling patient: Coding Level of Care Code 40036 Subseq Hosp Care Lvl 3 Diagnoses COVID U07.1 Metabolic encephalopathy G93.41 Dysphagia R13.10 Rhabdomyolysis M62.82 Increased anion gap metabolic acidosis E87.2 Diabetes E11.9 Parkinsons disease G20 HLD (hyperlipidemia) E78.5 Pressure injury of back, stage 2 L89.102 Hypernatremia E87.0 Hypokalemia E87.6
[2021-04-20] MEDS: DEXTROSE 5% 1,000 ML IV SCH (13:07)
[2021-04-20] MEDS: TUBE FEEDING WATER FLUSH GT SCH ×4 (13:07→22:35)
[2021-04-20] MEDS: PIPERACILLIN/TAZOBACTAM 3.375 GM in DEXTROSE 5% 100 ML IV SCH ×2 (13:08→20:51)
--- NOTE | 2021-04-20 17:05 | XRay Report ---
XR KUB/Abdomen 1 view CLINICAL HISTORY: post coresite insert. Status post repositioning of feeding tube COMPARISON STUDY: 04/19/2021 TECHNIQUE: Single view of the upper abdomen. FINDINGS: The bowel gas pattern is within normal limits without evidence for dilatation or obstruction. The NG tube is been repositioned and is now folded upon itself within the body of stomach. Its tip is in the gastric fundus. There is no evidence for organomegaly or gross intra-abdominal mass. No abnormal danny cifications are seen along the course of the urinary tracts bilaterally. No acute osseous pathology. IMPRESSION: 1.Repositioning of feeding tube has described. ACT 112: Negative or not required by law. Electronically signed by: Vineet Mcneal M.D. 04/20/2021 5:04 PM
[2021-04-20] MEDS ORDERED: FIBERSOURCE HN 1.2 CAL 1000 ML BAG NG SCH (17:15)
--- NOTE | 2021-04-20 23:10 | XRay Report ---
XR KUB/Abdomen 1 view at 10:33 PM CLINICAL HISTORY: ng tube placement. COMPARISON STUDY: 04/12/2021 at 4:30 PM TECHNIQUE: 4 radiographs were obtained with multiple attempts to reposition the patient's feeding tub e. FINDINGS: Compared to the previous examination, the feeding tube remain folds upon itself within the body of the stomach. The bowel gas pattern is within normal limits without evidence for dilatation or obstruction. There i s no evidence for organomegaly or gross intra-abdominal mass. No abnormal calcifications are seen lois ng the course of the urinary tracts bilaterally. No acute osseous pathology. IMPRESSION: 1.Feeding tube remains folded upon itself within the body of the stomach. ACT 112: Negative or not required by law. Electronically signed by: Vineet Mcneal M.D. 04/20/2021 11:09 PM
[2021-04-21] MEDS: TUBE FEEDING WATER FLUSH GT SCH ×6 (03:18→23:01)
[2021-04-21] MEDS: PIPERACILLIN/TAZOBACTAM 3.375 GM in DEXTROSE 5% 100 ML IV SCH ×3 (03:34→20:01)
[2021-04-21 07:28] LABS: Basophils # (auto) 0.01 K/uL (0-0.2); Basophils % (auto) 0.2 %; Eosinophils # (auto) 0.01 K/uL (0-0.5); Eosinophils % (auto) 0.2 %; Hematocrit (blood only) 35.7 % (37-47); Hemoglobin 11.5 g/dL (12.0-16.0); Immature Granulocytes # (auto) 0.01 K/uL (0.00-0.02); Immature Granulocytes % (auto) 0.2 %; Lymphocytes # (auto) 0.67 K/uL (1.2-3.4); Lymphocytes % (auto) 14.9 %; Mean Corpuscular Hemoglobin 28.8 pg (25-34); Mean Corpuscular Hgb Conc 32.2 g/dL (32-36); Mean Corpuscular Volume 89.5 fL (80-100); Monocytes # (auto) 0.22 K/uL (0.11-0.59); Monocytes % (auto) 4.9 %; Neutrophils # (auto) 3.58 K/uL (1.4-6.5); Neutrophils % (auto) 79.6 %; Platelet Count 170 K/uL (130-400); RDW Coefficient of Variation 12.8 % (11.5-14.5); RDW Standard Deviation 41.8 fL (36.4-46.3); Red Blood Count 3.99 M/uL (4.2-5.4)
[2021-04-21 08:10] LABS: Albumin Level 1.9 gm/dl (3.4-5.0); BUN Creatinine Ratio 27.3 (10-20); Bilirubin Direct 0.2 mg/dl (0-0.2); Calcium 7.9 mg/dl (8.5-10.1); Creatinine Clr Calc Pharmacy 58.8 ml/min; Est GFR (African American) 94.6 ml/min; Est GFR (Non-African American) 81.6 ml/min; Magnesium 2.1 mg/dl (1.8-2.4); Potassium 2.8 mmol/L (3.5-5.1)
[2021-04-21] MEDS: DEXTROSE 5% 1,000 ML IV SCH (08:11)
[2021-04-21] MEDS: FOLIC ACID 1 MG in SYRINGE 9.8 ML IV SCH (08:12)
[2021-04-21] MEDS: dexAMETHasone 6 MG in SYRINGE 0 ML IV SCH (08:12)
[2021-04-21 08:13] LABS: Bilirubin,Total 0.6 mg/dl (0.2-1); Total Protein 5.4 gm/dl (6.4-8.2)
[2021-04-21] MEDS: ENOXAPARIN INJ 30 MG/0.3 ML SYR SQ SCH ×2 (08:13→20:02)
[2021-04-21] MEDS: THIAMINE HCL 200 MG in SODIUM CHLORIDE 0.9% 50 ML IV SCH (08:14)
[2021-04-21] MEDS: CARBIDOPA/LEVODOPA 25/100MG TAB PO SCH ×4 (08:15→20:01)
[2021-04-21] MEDS: FAMOTIDINE 20 MG in SYRINGE 3 ML IV SCH ×2 (08:27→20:02)
[2021-04-21] MEDS: INSULIN ASPART 100 UNITS/ML 3 ML PEN SC SCH ×4 (08:55→20:05)
[2021-04-21] MEDS: INSULIN HUMAN NPH SC SCH (09:00)
[2021-04-21] MEDS ORDERED: POTASSIUM CHLORIDE 20 MEQ/15 ML UDC NG STA (09:29)
--- NOTE | 2021-04-21 09:30 | Hospitalist Progress Note ---
Date of Service April 21, 2021 Assessment & Plan (1) COVID: Plan: Unsure of day of illness minimal changes on CXR and only requiring 2L NC, not in distress continue dexamethasone 6mg IV daily, day 4 today might have COVID encephalopathy, dysphagia Coresafe placed to give Sinemet, start tube feeds today monitor respiratory status, she has been stable since admission (2) Metabolic encephalopathy: Plan: likely due to COVID encephalopathy as she is exhibiting dysphagia continue Thiamine and Folate IV - Cr stable - Tox screen negative - ETOH level <3.0 look for improvement in mental status with supportive care, tube feeds keep NPO with Coresafe she is more alert each day, cooperative, still not a great historian (3) Dysphagia: Plan: cannot swallow safely, appreciate speech therapy evaluation they re-evaluated 04/20, she aspirated on ice chips and applesauce Coresafe placed for medications, ordered tube feeds to start Pepcid prophylaxis since she is not eating likely will need instrument evaluation to gauge severity of dysphagia short term plan would be tube feeds via Coresafe to build up strength see if swallowing improves over course of a week Zosyn started 04/19 due to fever and concerns for aspiration continue Zosyn for 5 days, last day would be 04/23 (4) Hypernatremia: Plan: stopped LR, give D5W @ 50cc/hr 100mL free water flushes every 4 hours via Coresafe Na down to 148, can stop fluids this evening at 9pm (5) Hypokalemia: Plan: 40mEq elixir via Coresafe now and then schedule 20mEq TID K is 2.8 this morning (6) Diabetes: Plan: DMII on metformin - Glucose on arrival 272- last level we have 159 (2019) - Aspart sliding scale 100-140 (with CF 20) - Goal <180 continue Novolog SS, monitor for hypoglycemia use NPH with dexamethasone in the morning (7) Rhabdomyolysis: Plan: Unknown mechanism of how she ended up on the floor -CK was 1616 on admission - treated with LR at 100cc/hr - CPK down to 144, Cr is 0.7 rhabdo is RESOLVED (8) Increased anion gap metabolic acidosis: Plan: likely combination of starvation ketosis, mild rhabdomyolysis. - resolved (9) Parkinsons disease: Plan: Continue with Carbidopa-Levadopa via Coresafe tremors are better (10) HLD (hyperlipidemia): Plan: Hold Zocor (11) Pressure injury of back, stage 2: Plan: Present on admission secondary to patient being found down at home - Optifoam placed to sacrum and heels - Offload every 2 hours Admission and Anticipated Discharge Date Admission Date: April 18, 2021 Subjective patient laying in bed, comfortable, she has a rattle in the back of her throat, weak cough no fever/chills today, she denies any pain her Na is down to 148, K is low at 2.8, still waiting on tube feeds to come up her albumin is low at 1.9 far less tremors, but she cannot give me much history, cannot tell me if she was eating well prior to admission I updated her daughter on the phone Review of Systems Review of Systems: All systems reviewed & are unremarkable except as noted in Subjective Constitutional: + fatigue and + weakness; no fever Respiratory: + cough and + sputum production; no dyspnea and no dyspnea on exertion Neurologic: + tremor(s) Physical Exam Physical Exam: General: well developed, thin, no distress Neck: supple, trachea midline, normal thyroid Lungs: clear to auscultation bilaterally, normal respiratory effort, no accessory muscle use, no distress, + cough, rattle in back of throat Heart: regular rate, S1 and S2, no murmur, peripheral pulses normal, capillary refill normal, no edema Abdomen: soft, NT, ND, + BS, no hepatomegaly, normal to percussion Extremities: normal in appearance, no cyanosis, no petechiae, strength is 5/5 bilaterally Neuro: awake, cooperative, moves all extremities, no focal motor deficits, + dysphagia, + resting tremors bilaterally, less severe than on admission Skin: bruising on lower extremities Psych: Awake, oriented to person, not a great historian, knows she is in hospital, cooperative, flat affect Results & Data Results & Data ([facility]) Vital Signs (Past 12 Hours) Vital Signs Temp Pulse Pulse Resp BP Pulse Ox 04/21/21 07:30 36.9 C 76 17 157/83 H 94 04/21/21 03:12 36.6 C 81 26 H 163/79 H 92 04/20/21 22:32 37.0 C 89 22 145/87 H 94 04/20/21 22:30 92 H Laboratory Results Laboratory Results - last 24 hr 04/20/21 04/20/21 04/20/21 12:34 16:54 20:09 WBC RBC Hgb Hct MCV MCH MCHC RDW Std Deviation RDW Coeff of Ilan Plt Count MPV Immature Gran % (Auto) Neut % (Auto) Lymph % (Auto) Green % (Auto) Eos % (Auto) Baso % (Auto) Neut # (Auto) Lymph # (Auto) Green # (Auto) Eos # (Auto) Baso # (Auto) Immature Gran # (Auto) Sodium Potassium Chloride Carbon Dioxide Anion Gap BUN Creatinine Est Cr Clr Drug Dosing Est GFR ( Amer) Est GFR (Non-Af Amer) BUN/Creatinine Ratio Glucose POC Glucose 193 H 172 H 162 H Calcium Magnesium Total Bilirubin Direct Bilirubin AST ALT Alkaline Phosphatase Total Creatine Kinase Total Protein Albumin 04/21/21 04/21/21 04/21/21 06:35 06:35 07:30 WBC 4.50 L RBC 3.99 L Hgb 11.5 L Hct 35.7 L MCV 89.5 MCH 28.8 MCHC 32.2 RDW Std Deviation 41.8 RDW Coeff of Ilan 12.8 Plt Count 170 MPV 10.0 Immature Gran % (Auto) 0.2 Neut % (Auto) 79.6 Lymph % (Auto) 14.9 Green % (Auto) 4.9 Eos % (Auto) 0.2 Baso % (Auto) 0.2 Neut # (Auto) 3.58 Lymph # (Auto) 0.67 L Green # (Auto) 0.22 Eos # (Auto) 0.01 Baso # (Auto) 0.01 Immature Gran # (Auto) 0.01 Sodium 148 H Potassium 2.8 L Chloride 111 H Carbon Dioxide 27 Anion Gap 9.0 BUN 19 H Creatinine 0.71 Est Cr Clr Drug Dosing 58.8 Est GFR ( Amer) 94.6 Est GFR (Non-Af Amer) 81.6 BUN/Creatinine Ratio 27.3 H Glucose 145 H POC Glucose 150 H Calcium 7.9 L Magnesium 2.1 Total Bilirubin 0.6 Direct Bilirubin 0.2 AST 38 H ALT 10 L Alkaline Phosphatase 48 Total Creatine Kinase 144 Total Protein 5.4 L Albumin 1.9 L Medications Administered Current Inpatient Medications Acetaminophen (Acetaminophen 325 Mg Tab) 650 mg PO Q4H PRN PRN Reason: Pain or Fever Stop: 05/19/21 02:56 Carbidopa/Levodopa (Carbidopa/Levodopa 25/100mg Tab) 2 tab PO QID [facility] Stop: 05/19/21 02:56 Last Admin: 04/21/21 08:15 Dose: 2 tab Documented by: Dextrose (Dextrose 50% 50 Ml Syringe) 25 - 50 ml IV UD PRN; Protocol PRN Reason: Hypoglycemia Protocol Stop: 05/19/21 02:56 Enoxaparin Sodium (Enoxaparin Inj 30 Mg/0.3 Ml Syr) 30 mg SQ BID [facility] Stop: 05/19/21 09:59 Last Admin: 04/21/21 08:13 Dose: 30 mg Documented by: Enteral Nutritional Formula (Fibersource Hn 1.2 Rudy 1000 Ml Bag) 1,000 ml NG UD CHIKI; Protocol Stop: 05/20/21 17:14 Glucagon (Glucagon For Inj 1 Mg Vial) 1 mg SQ UD PRN; Protocol PRN Reason: Hypoglycemia Protocol Stop: 05/19/21 02:56 Glucose (Glucose 10 Tabs/Tube) 4 - 8 tabs PO UD PRN; Protocol PRN Reason: Hypoglycemia Protocol Stop: 05/19/21 02:56 Glucose (Glucose 40% Gel 15 Gm Tube) 15 - 30 gm PO UD PRN; Protocol PRN Reason: Hypoglycemia Protocol Stop: 05/19/21 02:56 Thiamine HCl 200 mg/ Sodium (Chloride) 52 mls @ 208 mls/hr IV QAM [facility] Stop: 05/19/21 08:59 Last Infusion: 04/21/21 08:32 Dose: Infused Documented by: Dexamethasone 6 mg/ Syringe 1.5 mls @ 1 mls/min IV QAM [facility] Stop: 05/19/21 09:44 Last Admin: 04/21/21 08:12 Dose: 1 mls/min Documented by: Folic Acid 1 mg/ Syringe 10 mls @ 5 mls/min IV QAM [facility] Stop: 05/19/21 09:44 Last Admin: 04/21/21 08:12 Dose: 5 mls/min Documented by: Famotidine 20 mg/ Syringe 5 mls @ 2.5 mls/min IV BID [facility] Stop: 05/19/21 09:44 Last Admin: 04/21/21 08:27 Dose: 2.5 mls/min Documented by: Acetaminophen (Ofirmev) 1,000 mg in 100 mls @ 400 mls/hr IV Q8H PRN PRN Reason: Fever Stop: 04/22/21 11:57 Piperacillin Sod/Tazobactam (Sod 3.375 gm/ Dextrose) 115 mls @ 28.75 mls/hr IV Q8H [facility]; Protocol Stop: 04/27/21 11:59 Last Infusion: 04/21/21 07:37 Dose: Infused Documented by: Dextrose (D5w) 1,000 mls @ 50 mls/hr IV .Q20H [facility] Stop: 05/20/21 10:44 Last Admin: 04/21/21 08:11 Dose: 50 mls/hr Documented by: Insulin Aspart (Insulin Aspart 100 Units/Ml 3 Ml Pen) 0 units SC ACHS [facility] Stop: 05/19/21 03:29 Last Admin: 04/21/21 08:55 Dose: 1 units Documented by: Insulin Human NPH (Insulin Human Nph) 24 units SC QAM [facility] Stop: 05/19/21 09:44 Last Admin: 04/21/21 09:00 Dose: 24 units Documented by: Miscellaneous (Carbohydrates For Hypoglycemia ) 15 - 30 gm PO UD PRN PRN Reason: Hypoglycemia Protocol Stop: 05/19/21 02:56 Miscellaneous Information (Piperacill/Tazobac Consult Active) 1 ea N/A UD PRN PRN Reason: Consult Stop: 05/20/21 07:58 Ondansetron HCl (Ondansetron Inj 2 Mg/Ml 2 Ml Vial) 4 mg IV Q6H PRN PRN Reason: Nausea Stop: 05/19/21 02:56 Polyethylene Glycol (Polyethylene (Miralax) 17 Gm Pack) 17 gm PO DAILY PRN PRN Reason: Constipation Stop: 05/19/21 02:56 Potassium Chloride (Potassium Chloride 20 Meq/15 Ml Udc) 20 meq NG TID [facility] Stop: 05/21/21 13:59 Potassium Chloride (Potassium Chloride 20 Meq/15 Ml Udc) 40 meq NG NOW STA Stop: 04/21/21 09:30 Sterile Water (Tube Feeding Water Flush) 100 ml GT Q4H [facility] Stop: 05/20/21 10:59 Last Admin: 04/21/21 08:04 Dose: Not Given Documented by: PG Care Time/CCT Total # of Minutes Spent Total Time Spent with Patient: Total time spent is greater than 50% in coordination of care (as documented) at patient's floor/unit and/or counseling patient: Coding Level of Care Code 76460 Subseq Hosp Care Lvl 3 Diagnoses COVID U07.1 Metabolic encephalopathy G93.41 Dysphagia R13.10 Rhabdomyolysis M62.82 Hypernatremia E87.0 Hypokalemia E87.6 Diabetes E11.9 Increased anion gap metabolic acidosis E87.2 Parkinsons disease G20 HLD (hyperlipidemia) E78.5 Pressure injury of back, stage 2 L89.102
[2021-04-21] MEDS: POTASSIUM CHLORIDE 20 MEQ/15 ML UDC NG SCH ×2 (15:20→20:04)
[2021-04-22] MEDS: TUBE FEEDING WATER FLUSH GT SCH ×6 (04:28→22:51)
[2021-04-22] MEDS: PIPERACILLIN/TAZOBACTAM 3.375 GM in DEXTROSE 5% 100 ML IV SCH ×3 (04:36→20:39)
[2021-04-22 07:56] LABS: BUN Creatinine Ratio 22.8 (10-20); Calcium 8.5 mg/dl (8.5-10.1); Creatinine Clr Calc Pharmacy 42.6 ml/min; Est GFR (Non-African American) 55.3 ml/min; Potassium 3.4 mmol/L (3.5-5.1)
[2021-04-22] MEDS: FAMOTIDINE 20 MG in SYRINGE 3 ML IV SCH ×2 (08:32→20:59)
[2021-04-22] MEDS: dexAMETHasone 6 MG in SYRINGE 0 ML IV SCH (08:33)
[2021-04-22] MEDS: THIAMINE HCL 200 MG in SODIUM CHLORIDE 0.9% 50 ML IV SCH (08:33)
[2021-04-22] MEDS: FOLIC ACID 1 MG in SYRINGE 9.8 ML IV SCH (08:33)
[2021-04-22] MEDS: ENOXAPARIN INJ 30 MG/0.3 ML SYR SQ SCH ×2 (08:33→20:41)
[2021-04-22] MEDS: CARBIDOPA/LEVODOPA 25/100MG TAB PO SCH ×4 (08:34→20:40)
[2021-04-22] MEDS: POTASSIUM CHLORIDE 20 MEQ/15 ML UDC NG SCH ×3 (08:35→20:43)
[2021-04-22] MEDS: INSULIN HUMAN NPH SC SCH (09:22)
[2021-04-22] MEDS: INSULIN ASPART 100 UNITS/ML 3 ML PEN SC SCH ×4 (09:22→20:40)
--- NOTE | 2021-04-22 10:20 | Hospitalist Progress Note ---
Date of Service April 22, 2021 Assessment & Plan (1) COVID: Plan: upon presentation exact timing of symptom onset unclear minimal changes on CXR and only requiring 4L NC, not in distress continue dexamethasone 6mg IV daily, might have COVID encephalopathy, dysphagia Coresafe placed to give Sinemet, now able to eat some foods today (2) Metabolic encephalopathy: Plan: likely due to COVID encephalopathy continue Thiamine and Folate IV - Cr stable - Tox screen negative - ETOH level <3.0 look for improvement in mental status with supportive care (3) Dysphagia: Plan: Zosyn started 04/19 due to fever and concerns for aspiration continue Zosyn for 5 days, last day would be 04/23 (4) Hypernatremia: Plan: sodium now normalized will continue oral feeding (5) Hypokalemia: Plan: continue to replete as needed (6) Diabetes: Plan: DMII on metformin - Glucose on arrival 272- last level we have 159 (2019) - Aspart sliding scale 100-140 (with CF 20) - Goal <180 continue Novolog SS, monitor for hypoglycemia use NPH with dexamethasone in the morning (7) Rhabdomyolysis: Plan: Unknown mechanism of how she ended up on the floor -CK was 1616 on admission - treated with LR at 100cc/hr - CPK down, Cr is 0.7 rhabdo is RESOLVED (8) Increased anion gap metabolic acidosis: Plan: likely combination of starvation ketosis, mild rhabdomyolysis. - resolved (9) Parkinsons disease: Plan: Continue with Carbidopa-Levadopa via Coresafe tremors are better (10) HLD (hyperlipidemia): Plan: Hold Zocor (11) Pressure injury of back, stage 2: Plan: Present on admission secondary to patient being found down at home - Optifoam placed to sacrum and heels - Offload every 2 hours Admission and Anticipated Discharge Date Admission Date: April 18, 2021 Subjective Patient is improved on 4 L of oxygen taking some oral intake was cleared for oral intake by speech pathology in the late afternoon of the after a FEES evaluation. Patient is not oriented to place or time but she is able to have casual conversation. Review of Systems Review of Systems: Mild distress and fatigue no headache, no visual changes no speech or swallowing issues no chest pain, pressure or palpitations no shortness of breath, cough or wheezes no abdominal pain, nausea or vomiting, diarrhea or constipation no dysuria, hematuria or frequency no focal joint pain or swelling no back pain, CVA tenderness or radicular pain no bruising, bleeding or rashes no focal signs of weakness or numbness exhibits tremors of parkisonism seems anxious but no complaints of it as of yet Physical Exam Physical Exam: The patient appeared ill but improved from records Vital signs as documented. Head exam is normocephalic atraumatic Neck is without JVD, thyromegaly, or carotid bruits. Lungs crackles at the bases clearing on the way up Cardiac exam, Rhythm is regular.. No murmurs, rubs or gallops. Abdominal exam reveals normal bowel sounds, soft non tender, no masses Extremities are nonedematous and both pedal pulses are present Neurologic exam is alert and orientedx1, no focal loss of strength or sensation, has resting tremor Skin is without bruises or rashes Psychologically is without concerns for anxiety or depression.. Results & Data Results & Data ([facility]) Vital Signs (Past 12 Hours) Vital Signs Temp Pulse Pulse Resp BP Pulse Ox 04/22/21 07:09 98.8 F 74 16 161/77 H 94 04/22/21 03:29 98.4 F 75 20 149/78 H 91 04/21/21 23:10 97.7 F 83 18 153/92 H 96 04/21/21 22:20 64 PG Care Time/CCT Total # of Minutes Spent Total Time Spent with Patient: Total time spent is greater than 50% in coordination of care (as documented) at patient's floor/unit and/or counseling patient: Coding Level of Care Code 05035 Subseq Hosp Care Lvl 3 Diagnoses COVID U07.1 Metabolic encephalopathy G93.41 Dysphagia R13.10 Hypernatremia E87.0 Hypokalemia E87.6 Diabetes E11.9 Rhabdomyolysis M62.82 Increased anion gap metabolic acidosis E87.2 Parkinsons disease G20 HLD (hyperlipidemia) E78.5 Pressure injury of back, stage 2 L89.102
[2021-04-23] MEDS: TUBE FEEDING WATER FLUSH GT SCH ×6 (02:30→23:20)
[2021-04-23] MEDS: PIPERACILLIN/TAZOBACTAM 3.375 GM in DEXTROSE 5% 100 ML IV SCH ×3 (03:31→20:37)
[2021-04-23] MEDS: CARBIDOPA/LEVODOPA 25/100MG TAB PO SCH ×4 (08:54→20:40)
[2021-04-23] MEDS: POTASSIUM CHLORIDE 20 MEQ/15 ML UDC NG SCH ×3 (08:58→20:40)
[2021-04-23] MEDS: FAMOTIDINE 20 MG in SYRINGE 3 ML IV SCH ×2 (09:39→20:40)
[2021-04-23] MEDS: dexAMETHasone 6 MG in SYRINGE 0 ML IV SCH (09:39)
[2021-04-23] MEDS: FOLIC ACID 1 MG in SYRINGE 9.8 ML IV SCH (09:40)
[2021-04-23] MEDS: THIAMINE HCL 200 MG in SODIUM CHLORIDE 0.9% 50 ML IV SCH (09:40)
[2021-04-23] MEDS: ENOXAPARIN INJ 30 MG/0.3 ML SYR SQ SCH ×2 (09:41→20:39)
[2021-04-23] MEDS: INSULIN ASPART 100 UNITS/ML 3 ML PEN SC SCH ×4 (09:45→20:38)
[2021-04-23] MEDS: INSULIN HUMAN NPH SC SCH (10:00)
--- NOTE | 2021-04-23 10:07 | XRay Report ---
XR chest 1V portable HISTORY: Cough. eval aspiration pneumonia COMPARISON: Chest 04/18/2021. FINDINGS: No pneumothorax. Trace right pleural effusion. The heart is normal in size. There are patch y peripheral airspace opacities within the bilateral midlung zones which have progressed in the inter herb. No evidence for pulmonary edema. IMPRESSION: 1. Patchy airspace opacities within the bilateral mid lung zones which have progressed in the interva l. This is consistent with a pneumonia and may be due to a viral process. 2. Trace right pleural effusion. ACT 112: Negative or not required by law. Electronically signed by: Miguel Mancilla M.D. 04/23/2021 10:05 AM
[2021-04-23] MEDS ORDERED: lisinopril 10 MG TAB PO ONE (15:30)
[2021-04-23] MEDS ORDERED: hydrALAZINE HCL 20 MG/ML VIAL IV PRN (15:31)
--- NOTE | 2021-04-23 16:13 | Hospitalist Progress Note ---
Date of Service April 23, 2021 Assessment & Plan (1) COVID: Plan: upon presentation exact timing of symptom onset unclear minimal changes on CXR and persistently requiring 4L NC, not in distress continue dexamethasone 6mg IV daily, improving COVID encephalopathy, dysphagia Coresafe placed to give Sinemet, remived, now able to eat some foods offer nutritional supplements (2) Metabolic encephalopathy: Plan: clearing due to COVID encephalopathy continue Thiamine and Folate IV - Cr remains stable - Tox screen negative - ETOH level <3.0 (3) Dysphagia: Plan: Zosyn started 04/19 due to fever and concerns for aspiration continue Zosyn for 5 days, last day would be 04/23 (4) Hypernatremia: Plan: sodium now normalized will continue oral feeding (5) Hypokalemia: Plan: continue to replete as needed (6) Diabetes: Plan: DMII on metformin - Glucose on arrival 272- last level we have 159 (2019) - Aspart sliding scale 100-140 (with CF 20) - Goal <180 continue Novolog SS, monitor for hypoglycemia use NPH with dexamethasone in the morning (7) Rhabdomyolysis: Plan: Unknown mechanism of how she ended up on the floor -CK was 1616 on admission - treated with LR at 100cc/hr - CPK down, Cr is 0.7 rhabdo is RESOLVED (8) Increased anion gap metabolic acidosis: Plan: likely combination of starvation ketosis, mild rhabdomyolysis. - resolved (9) Parkinsons disease: Plan: Continue with Carbidopa-Levadopa now taking po tremors are better (10) HLD (hyperlipidemia): Plan: Hold Zocor (11) Pressure injury of back, stage 2: Plan: Present on admission secondary to patient being found down at home - Optifoam placed to sacrum and heels - Offload every 2 hours Admission and Anticipated Discharge Date Admission Date: April 18, 2021 Subjective Patient is improved, remains on 4 L of oxygen, improving oral intake (cleared for oral intake by speech pathology in the late afternoon of the after a FEES evaluation.) Patient is not oriented to place or time but she is able to have casual conversation. improving strenght, will offer nutritional supplements Review of Systems Review of Systems: Mild distress and fatigue no headache, no visual changes no speech or swallowing issues has some chin tremor with her Parkinson's no chest pain, pressure or palpitations Improving shortness of breath, continues with nonproductive cough no abdominal pain, nausea or vomiting, no dysuria, hematuria or frequency no focal joint pain or swelling no back pain, CVA tenderness or radicular pain no bruising, bleeding or rashes no focal signs of weakness or numbness or altered sensation no complaints of anxiety or depression does have some memory impairment likely is subsequent to her Parkinson's and illness Physical Exam Physical Exam: The patient appeares to br improving Vital signs as documented. Head exam is normocephalic atraumatic chin tremor Neck is without JVD, thyromegaly, or carotid bruits. Lungs comntinue with crackles at the bases clearing on the way up Cardiac exam, Rhythm is regular.. No murmurs, rubs or gallops. Abdominal exam reveals normal bowel sounds, soft non tender, no masses Extremities are nonedematous and both pedal pulses are present Neurologic exam is alert and orientedx1, no focal loss of strength or sensation, has resting tremor Skin is without bruises or rashes Psychologically is without concerns for anxiety or depression.. Results & Data Results & Data ([facility]) Vital Signs (Past 12 Hours) Vital Signs Temp Pulse Pulse Resp BP Pulse Ox 04/23/21 11:55 98.2 F 89 19 172/111 H 92 04/23/21 08:01 98.6 F 75 21 179/86 H 95 04/23/21 08:00 76 PG Care Time/CCT Total # of Minutes Spent Total Time Spent with Patient: Total time spent is greater than 50% in coordination of care (as documented) at patient's floor/unit and/or counseling patient: Coding Level of Care Code 89787 Subseq Hosp Care Lvl 3 Diagnoses COVID U07.1 Metabolic encephalopathy G93.41 Dysphagia R13.10 Hypernatremia E87.0 Hypokalemia E87.6 Diabetes E11.9 Rhabdomyolysis M62.82 Increased anion gap metabolic acidosis E87.2 Parkinsons disease G20 HLD (hyperlipidemia) E78.5 Pressure injury of back, stage 2 L89.102
[2021-04-23] MEDS ORDERED: POTASSIUM CHLORIDE 10 MEQ / 100ML WTR IV STA (16:16)
[2021-04-23] MEDS ORDERED: POTASSIUM CHLORIDE / WTR 10 MEQ/100 ML PLCT IV SCH (16:30)
[2021-04-24] MEDS: TUBE FEEDING WATER FLUSH GT SCH ×2 (03:28→06:26)
[2021-04-24] MEDS: PIPERACILLIN/TAZOBACTAM 3.375 GM in DEXTROSE 5% 100 ML IV SCH ×3 (03:29→20:24)
[2021-04-24] MEDS: POTASSIUM CHLORIDE 20 MEQ/15 ML UDC NG SCH ×2 (08:25→12:26)
[2021-04-24] MEDS: FAMOTIDINE 20 MG in SYRINGE 3 ML IV SCH ×2 (08:31→20:24)
[2021-04-24] MEDS: INSULIN ASPART 100 UNITS/ML 3 ML PEN SC SCH ×4 (08:31→21:47)
[2021-04-24] MEDS: THIAMINE HCL 200 MG in SODIUM CHLORIDE 0.9% 50 ML IV SCH (08:32)
[2021-04-24] MEDS: FOLIC ACID 1 MG in SYRINGE 9.8 ML IV SCH (08:32)
[2021-04-24] MEDS: CARBIDOPA/LEVODOPA 25/100MG TAB PO SCH ×4 (08:32→20:26)
[2021-04-24] MEDS: dexAMETHasone 6 MG in SYRINGE 0 ML IV SCH (08:32)
[2021-04-24] MEDS: ENOXAPARIN INJ 30 MG/0.3 ML SYR SQ SCH ×2 (08:33→20:25)
[2021-04-24] MEDS: INSULIN HUMAN NPH SC SCH (08:33)
[2021-04-24] MEDS: lisinopril 10 MG TAB PO SCH (08:36)
[2021-04-24] MEDS: ACETAMINOPHEN 325 MG TAB PO PRN (09:03)
--- NOTE | 2021-04-24 17:18 | Hospitalist Progress Note ---
Date of Service April 24, 2021 Assessment & Plan (1) COVID: Plan: upon presentation exact timing of symptom onset unclear minimal changes on CXR and persistently requiring 4L NC, not in distress continue dexamethasone 6mg IV daily, LD 04/28 improving COVID encephalopathy, dysphagia Coresafe placed to give Sinemet, removed, now able to eat some foods offer nutritional supplements (2) Metabolic encephalopathy: Plan: clearing due to COVID encephalopathy continue Thiamine and Folate IV - Cr remains stable - Tox screen negative - ETOH level <3.0 (3) Dysphagia: Plan: Zosyn started 04/19 due to fever and concerns for aspiration continue Zosyn for 5 days, last day would be 04/23 (4) Hypernatremia: Plan: sodium now normalized will continue oral feeding (5) Hypokalemia: Plan: continue to replete as needed (6) Diabetes: Plan: DMII on metformin - Glucose on arrival 272- last level we have 159 (2019) - Aspart sliding scale 100-140 (with CF 20) - Goal <180 continue Novolog SS, monitor for hypoglycemia use NPH with dexamethasone in the morning, once off Steroids consider transition to home regimen (7) Rhabdomyolysis: Plan: Unknown mechanism of how she ended up on the floor -CK was 1616 on admission - treated with LR at 100cc/hr - CPK down, Cr is 0.7 rhabdo is RESOLVED (8) Increased anion gap metabolic acidosis: Plan: likely combination of starvation ketosis, mild rhabdomyolysis. - resolved (9) Parkinsons disease: Plan: Continue with Carbidopa-Levadopa now taking po tremors are better (10) HLD (hyperlipidemia): Plan: Hold Zocor (11) Pressure injury of back, stage 2: Plan: Present on admission secondary to patient being found down at home - Optifoam placed to sacrum and heels - Offload every 2 hours Admission and Anticipated Discharge Date Admission Date: April 18, 2021 Subjective Patient continues to improve, now on room air during the day, improving oral intake (cleared for oral intake by speech pathology in the late afternoon of the after a FEES evaluation.) Patient is not oriented to place or time but she is able to have casual conversation. improving strength, Pt feels maybe rehab candidte, will offer nutritional supplements Review of Systems Review of Systems: Mild distress and fatigue no headache, no visual changes no speech or swallowing issues has some chin tremor with her Parkinson's no chest pain, pressure or palpitations resolved shortness of breathat rest still with exertion, continues with nonproductive cough no abdominal pain, nausea or vomiting, no dysuria, hematuria or frequency no focal joint pain or swelling no back pain, CVA tenderness or radicular pain no bruising, bleeding or rashes no focal signs of weakness or numbness or altered sensation no complaints of anxiety or depression + memory impairment Physical Exam Physical Exam: The patient appeares to br improving Vital signs as documented. Head exam is normocephalic atraumatic chin tremor Neck is without JVD, thyromegaly, or carotid bruits. Lungs comntinue with crackles at the bases clearing on the way up Cardiac exam, Rhythm is regular.. No murmurs, rubs or gallops. Abdominal exam reveals normal bowel sounds, soft non tender, no masses Extremities are nonedematous and both pedal pulses are present Neurologic exam is alert and orientedx1, no focal loss of strength or sensation, has resting tremor Skin is without bruises or rashes Psychologically is without concerns for anxiety or depression.. Results & Data Results & Data ([facility]) Vital Signs (Past 12 Hours) Vital Signs Temp Pulse Pulse Resp BP Pulse Ox Pulse Ox 04/24/21 16:33 98.4 F 75 18 141/108 H 93 04/24/21 14:30 72 04/24/21 11:19 99.0 F 88 18 151/102 H 100 04/24/21 09:20 97 04/24/21 08:55 81 04/24/21 08:06 98.6 F 89 18 182/92 H 94 PG Care Time/CCT Total # of Minutes Spent Total Time Spent with Patient: Total time spent is greater than 50% in coordination of care (as documented) at patient's floor/unit and/or counseling patient: Coding Level of Care Code 89008 Subseq Hosp Care Lvl 2 Diagnoses COVID U07.1 Metabolic encephalopathy G93.41 Dysphagia R13.10 Hypernatremia E87.0 Hypokalemia E87.6 Diabetes E11.9 Rhabdomyolysis M62.82 Increased anion gap metabolic acidosis E87.2 Parkinsons disease G20 HLD (hyperlipidemia) E78.5 Pressure injury of back, stage 2 L89.102
[2021-04-25] MEDS: PIPERACILLIN/TAZOBACTAM 3.375 GM in DEXTROSE 5% 100 ML IV SCH (03:04)
[2021-04-25 07:09] LABS: Hematocrit (blood only) 40.9 % (37-47); Hemoglobin 13.3 g/dL (12.0-16.0); Mean Corpuscular Hemoglobin 28.9 pg (25-34); Mean Corpuscular Hgb Conc 32.5 g/dL (32-36); Mean Corpuscular Volume 88.9 fL (80-100); Mean Platelet Volume 9.7 fL (7.4-10.4); Platelet Count 304 K/uL (130-400); RDW Coefficient of Variation 12.7 % (11.5-14.5); RDW Standard Deviation 40.7 fL (36.4-46.3); White Blood Count 8.84 K/uL (4.8-10.8)
[2021-04-25 07:35] LABS: BUN Creatinine Ratio 21.4 (10-20); Calcium 8.6 mg/dl (8.5-10.1); Creatinine Clr Calc Pharmacy 45.2 ml/min; Est GFR (African American) 69.1 ml/min; Est GFR (Non-African American) 59.6 ml/min; Magnesium 2.1 mg/dl (1.8-2.4); Potassium 3.5 mmol/L (3.5-5.1)
[2021-04-25] MEDS: INSULIN ASPART 100 UNITS/ML 3 ML PEN SC SCH ×4 (08:10→21:23)
[2021-04-25] MEDS: CARBIDOPA/LEVODOPA 25/100MG TAB PO SCH ×4 (08:11→21:22)
[2021-04-25] MEDS: lisinopril 10 MG TAB PO SCH (08:11)
[2021-04-25] MEDS: THIAMINE HCL 200 MG in SODIUM CHLORIDE 0.9% 50 ML IV SCH (08:12)
[2021-04-25] MEDS: INSULIN HUMAN NPH SC SCH (08:13)
[2021-04-25] MEDS: FOLIC ACID 1 MG in SYRINGE 9.8 ML IV SCH (08:13)
[2021-04-25] MEDS: dexAMETHasone 6 MG in SYRINGE 0 ML IV SCH (08:13)
[2021-04-25] MEDS: FAMOTIDINE 20 MG in SYRINGE 3 ML IV SCH ×2 (08:13→21:25)
[2021-04-25] MEDS: ENOXAPARIN INJ 30 MG/0.3 ML SYR SQ SCH ×2 (09:10→21:25)
[2021-04-25] MEDS: ACETAMINOPHEN 325 MG TAB PO PRN (21:26)
--- NOTE | 2021-04-25 21:27 | Communication Note ---
Date of Service: April 25, 2021 Night team made aware that patient became febrile to 38.0. I did place orders for blood cultures to be drawn; 2/2 blood cultures from 04/18/21 finalized negative. I also ordered a 500mg dose of Azithromycin this evening (blood cultures are to be drawn before this is given) and 250mg qam for the next 4 days.
[2021-04-25] MEDS: AZITHROMYCIN 250 MG TAB PO ONE ×2 (23:15→23:27)
[2021-04-26] MEDS ORDERED: AZITHROMYCIN 500 MG in DEXTROSE 5% 250 ML IV ONE
[2021-04-26] MEDS: CARBIDOPA/LEVODOPA 25/100MG TAB PO SCH ×4 (08:16→21:12)
[2021-04-26] MEDS: ENOXAPARIN INJ 30 MG/0.3 ML SYR SQ SCH ×2 (08:17→21:11)
[2021-04-26] MEDS: FAMOTIDINE 20 MG in SYRINGE 3 ML IV SCH ×2 (08:17→22:28)
[2021-04-26] MEDS: lisinopril 10 MG TAB PO SCH (08:19)
[2021-04-26] MEDS: INSULIN ASPART 100 UNITS/ML 3 ML PEN SC SCH ×4 (08:21→21:14)
[2021-04-26] MEDS: dexAMETHasone 6 MG in SYRINGE 0 ML IV SCH (08:29)
[2021-04-26] MEDS: FOLIC ACID 1 MG in SYRINGE 9.8 ML IV SCH (08:29)
[2021-04-26] MEDS: THIAMINE HCL 200 MG in SODIUM CHLORIDE 0.9% 50 ML IV SCH (08:59)
[2021-04-26] MEDS: INSULIN HUMAN NPH SC SCH (09:00)
--- NOTE | 2021-04-26 10:33 | Hospitalist Progress Note ---
Date of Service April 26, 2021 Assessment & Plan (1) COVID: Plan: upon presentation exact timing of symptom onset unclear minimal changes on CXR, down to room air today continue dexamethasone 6mg IV daily, last day would be 04/28 suspect COVID encephalopathy with her confusion and dysphagia needs PT/OT and will definitely need rehab (2) Metabolic encephalopathy: Plan: suspect due to COVID encephalopathy continue Thiamine and Folate IV - Cr remains stable - Tox screen negative - ETOH level <3.0 able to swallow safely (3) Dysphagia: Plan: pureed diet with clear liquids taking pills unsure if she can get enough nutrition by mouth at this point (4) Hypernatremia: Plan: sodium now normalized will continue oral feeding (5) Hypokalemia: Plan: continue to replete as needed (6) Diabetes: Plan: DMII on metformin - Glucose on arrival 272- last level we have 159 (2019) - Aspart sliding scale 100-140 (with CF 20) - Goal <180 continue Novolog SS, monitor for hypoglycemia use NPH with dexamethasone in the morning, once off Steroids consider transition to home regimen (7) Rhabdomyolysis: Plan: Unknown mechanism of how she ended up on the floor -CK was 1616 on admission - treated with LR at 100cc/hr - CPK down, Cr is 0.7 rhabdo is RESOLVED (8) Increased anion gap metabolic acidosis: Plan: likely combination of starvation ketosis, mild rhabdomyolysis. - resolved (9) Parkinsons disease: Plan: Continue with Carbidopa-Levadopa now taking po tremors are better (10) HLD (hyperlipidemia): Plan: Hold Zocor (11) Pressure injury of back, stage 2: Plan: Present on admission secondary to patient being found down at home - Optifoam placed to sacrum and heels - Offload every 2 hours Plan: will need rehab, PT/OT consulted Admission and Anticipated Discharge Date Admission Date: April 18, 2021 Subjective patient laying in bed, oriented to person only, does not know she is in the hospital, definitely does not know time or why she is here she cannot recall if she has been OOB to a chair at all she is breathing comfortably, has a rattle in her throat, she is on room air at the moment she had a fever last night, blood cultures drawn and Zithromax added to Zosyn appears to be recovering from COVID, needs rehab Review of Systems Review of Systems: All systems reviewed & are unremarkable except as noted in Subjective Physical Exam Physical Exam: General: well developed, thin, no distress Neck: supple, trachea midline, normal thyroid Lungs: clear to auscultation bilaterally, normal respiratory effort, no accessory muscle use, no distress, + cough, rattle in back of throat Heart: regular rate, S1 and S2, no murmur, peripheral pulses normal, capillary refill normal, no edema Abdomen: soft, NT, ND, + BS, no hepatomegaly, normal to percussion Extremities: normal in appearance, no cyanosis, no petechiae, strength is diminished bilaterally Neuro: awake, cooperative, moves all extremities, no focal motor deficits, + dysphagia, + resting tremors bilaterally, less severe than on admission Skin: bruising on lower extremities Psych: Awake, oriented to person, not a great historian, does not know she is in hospital or why, does not know time of year Results & Data Results & Data ([facility]) Vital Signs (Past 12 Hours) Vital Signs Temp Pulse Pulse Resp BP Pulse Ox 04/26/21 06:56 36.4 C L 76 20 145/76 H 91 04/26/21 04:09 36.3 C L 73 16 155/85 H 92 04/26/21 01:05 66 04/25/21 23:13 36.8 C 71 18 133/69 93 Laboratory Results Laboratory Results - last 24 hr 04/25/21 04/25/21 04/25/21 11:22 16:35 20:52 POC Glucose 153 H 169 H 207 H 04/26/21 07:40 POC Glucose 89 Medications Administered Current Inpatient Medications Acetaminophen (Acetaminophen 325 Mg Tab) 650 mg PO Q4H PRN PRN Reason: Pain or Fever Stop: 05/19/21 02:56 Last Admin: 04/25/21 21:26 Dose: 650 mg Documented by: Azithromycin (Azithromycin 250 Mg Tab) 250 mg PO DAILY [facility]IKI; Protocol Stop: 05/03/21 13:59 Carbidopa/Levodopa (Carbidopa/Levodopa 25/100mg Tab) 2 tab PO QID [facility]I Stop: 05/19/21 02:56 Last Admin: 04/26/21 08:16 Dose: 2 tab Documented by: Dextrose (Dextrose 50% 50 Ml Syringe) 25 - 50 ml IV UD PRN; Protocol PRN Reason: Hypoglycemia Protocol Stop: 05/19/21 02:56 Enoxaparin Sodium (Enoxaparin Inj 30 Mg/0.3 Ml Syr) 30 mg SQ BID [facility] Stop: 05/19/21 09:59 Last Admin: 04/26/21 08:17 Dose: 30 mg Documented by: Enteral Nutritional Formula (Fibersource Hn 1.2 Rudy 1000 Ml Bag) 1,000 ml NG UD [facility]; Protocol Stop: 05/20/21 17:14 Glucagon (Glucagon For Inj 1 Mg Vial) 1 mg SQ UD PRN; Protocol PRN Reason: Hypoglycemia Protocol Stop: 05/19/21 02:56 Glucose (Glucose 10 Tabs/Tube) 4 - 8 tabs PO UD PRN; Protocol PRN Reason: Hypoglycemia Protocol Stop: 05/19/21 02:56 Glucose (Glucose 40% Gel 15 Gm Tube) 15 - 30 gm PO UD PRN; Protocol PRN Reason: Hypoglycemia Protocol Stop: 05/19/21 02:56 Hydralazine HCl (Hydralazine Hcl 20 Mg/Ml Vial) 10 mg IV Q8 PRN PRN Reason: Blood Pressure - High Stop: 05/23/21 15:30 Last Admin: 04/24/21 23:48 Dose: 10 mg Documented by: Thiamine HCl 200 mg/ Sodium (Chloride) 52 mls @ [facility] [place]: 05/19/21 08:59 Last Infusion: 04/26/21 09:48 Dose: Infused Documented by: Dexamethasone 6 mg/ Syringe 1.5 mls @ 1 mls/min IV QAM [facility] Stop: 05/19/21 09:44 Last Admin: 04/26/21 08:29 Dose: 1 mls/min Documented by: Folic Acid 1 mg/ Syringe 10 mls @ 5 mls/min IV QAM [facility] Stop: 05/19/21 09:44 Last Admin: 04/26/21 08:29 Dose: 5 mls/min Documented by: Famotidine 20 mg/ Syringe 5 mls @ 2.5 mls/min IV BID [facility] Stop: 05/19/21 09:44 Last Admin: 04/26/21 08:17 Dose: 2.5 mls/min Documented by: Insulin Aspart (Insulin Aspart 100 Units/Ml 3 Ml Pen) 0 units SC ACHS [facility] Stop: 05/19/21 03:29 Last Admin: 04/26/21 08:21 Dose: Not Given Documented by: Insulin Human NPH (Insulin Human Nph) 24 [facility] Stop: 05/19/21 09:44 Last Admin: 04/26/21 09:00 Dose: 24 units Documented by: Lisinopril (Lisinopril 10 Mg Tab) 10 mg PO QAM [facility] Stop: 05/24/21 08:59 Last Admin: 04/26/21 08:19 Dose: 10 mg Documented by: Miscellaneous (Carbohydrates For Hypoglycemia ) 15 - 30 gm PO UD PRN PRN Reason: Hypoglycemia Protocol Stop: 05/19/21 02:56 Ondansetron HCl (Ondansetron Inj 2 Mg/Ml 2 Ml Vial) 4 mg IV Q6H PRN PRN Reason: Nausea Stop: 05/19/21 02:56 Polyethylene Glycol (Polyethylene (Miralax) 17 Gm Pack) 17 gm PO DAILY PRN PRN Reason: Constipation Stop: 05/19/21 02:56 PG Care Time/CCT Total # of Minutes Spent Total Time Spent with Patient: Total time spent is greater than 50% in coordination of care (as documented) at patient's floor/unit and/or counseling patient: Coding Level of Care Code 83807 Subseq Hosp Care Lvl 2 Diagnoses COVID U07.1 Metabolic encephalopathy G93.41 Dysphagia R13.10 Hypernatremia E87.0 Hypokalemia E87.6 Diabetes E11.9 Rhabdomyolysis M62.82 Increased anion gap metabolic acidosis E87.2 Parkinsons disease G20 HLD (hyperlipidemia) E78.5 Pressure injury of back, stage 2 L89.102
[2021-04-26] MEDS: AZITHROMYCIN 250 MG TAB PO SCH (13:31)
[2021-04-27] MEDS: THIAMINE HCL 200 MG in SODIUM CHLORIDE 0.9% 50 ML IV SCH (08:17)
[2021-04-27] MEDS: lisinopril 10 MG TAB PO SCH (08:17)
[2021-04-27] MEDS: dexAMETHasone 6 MG in SYRINGE 0 ML IV SCH (08:17)
[2021-04-27] MEDS: FOLIC ACID 1 MG in SYRINGE 9.8 ML IV SCH (08:17)
[2021-04-27] MEDS: FAMOTIDINE 20 MG in SYRINGE 3 ML IV SCH ×2 (08:18→20:43)
[2021-04-27] MEDS: AZITHROMYCIN 250 MG TAB PO SCH (08:18)
[2021-04-27] MEDS: CARBIDOPA/LEVODOPA 25/100MG TAB PO SCH ×4 (08:18→20:44)
[2021-04-27] MEDS: ENOXAPARIN INJ 30 MG/0.3 ML SYR SQ SCH ×2 (08:19→20:44)
[2021-04-27] MEDS: INSULIN HUMAN NPH SC SCH (09:21)
[2021-04-27] MEDS: INSULIN ASPART 100 UNITS/ML 3 ML PEN SC SCH ×4 (09:22→20:43)
--- NOTE | 2021-04-27 10:32 | Hospitalist Progress Note ---
Date of Service April 27, 2021 Assessment & Plan (1) COVID: Plan: upon presentation exact timing of symptom onset unclear minimal changes on CXR, down to room air for two days, no distress continue dexamethasone 6mg IV daily, last day would be 04/28 suspect COVID encephalopathy with her confusion and dysphagia some studies show Parkinson's patients have worsening symptoms, cognitive impairment after infection needs PT/OT and will definitely need rehab first choice is [facility], family determining a back up plan move to medical floor (2) Metabolic encephalopathy: Plan: suspect due to COVID encephalopathy as stated above, PD patients can have more cognitive impairment continue Thiamine and Folate IV while here - Cr remains stable - Tox screen negative - ETOH level <3.0 able to swallow safely (3) Dysphagia: Plan: pureed diet with clear liquids taking pills she will eat but needs fed by aide (4) Hypernatremia: Plan: sodium now normalized will continue oral feeding (5) Hypokalemia: Plan: continue to replete as needed (6) Diabetes: Plan: DMII on metformin - Glucose on arrival 272- last level we have 159 (2019) - Aspart sliding scale 100-140 (with CF 20) - Goal <180 continue Novolog SS, monitor for hypoglycemia had low sugar last night, no sugars > 200 will loosen coverage, lower NPH (7) Rhabdomyolysis: Plan: Unknown mechanism of how she ended up on the floor -CK was 1616 on admission - treated with LR at 100cc/hr - CPK down, Cr is 0.7 rhabdo is RESOLVED (8) Increased anion gap metabolic acidosis: Plan: likely combination of starvation ketosis, mild rhabdomyolysis. - resolved (9) Parkinsons disease: Plan: Continue with Carbidopa-Levadopa now taking po tremors are better suspect some of her cognitive impairment is due to PD (10) HLD (hyperlipidemia): Plan: Hold Zocor (11) Pressure injury of back, stage 2: Plan: Present on admission secondary to patient being found down at home - Optifoam placed to sacrum and heels - Offload every 2 hours Plan: will need rehab, PT/OT consulted looking into [facility] and SNF as back up Admission and Anticipated Discharge Date Admission Date: April 18, 2021 Subjective patient is very pleasant today, says she is doing well, simple answers RN says she will eat and take her medications, but she needs fed right now no issues with tele, will move her to medical floor today will call her daughter to provide update Review of Systems Review of Systems: All systems reviewed & are unremarkable except as noted in Subjective Physical Exam Physical Exam: General: well developed, thin, no distress Neck: supple, trachea midline, normal thyroid Lungs: clear to auscultation bilaterally, normal respiratory effort, no accessory muscle use, no distress Heart: regular rate, S1 and S2, no murmur, peripheral pulses normal, capillary refill normal, no edema Abdomen: soft, NT, ND, + BS, no hepatomegaly, normal to percussion Extremities: normal in appearance, no cyanosis, no petechiae, strength is diminished bilaterally Neuro: awake, cooperative, moves all extremities, no focal motor deficits, + resting tremors bilaterally, mild Psych: Awake, oriented to person and place, slow responses Results & Data Results & Data ([facility]) Vital Signs (Past 12 Hours) Vital Signs Temp Pulse Resp BP Pulse Ox 04/27/21 07:25 37.1 C 81 16 129/69 91 04/27/21 04:18 36.4 C L 73 20 145/73 H 90 04/26/21 23:29 36.4 C L 78 19 148/75 H 94 Laboratory Results Laboratory Results - last 24 hr 04/26/21 04/26/21 04/26/21 11:33 11:33 12:11 POC Glucose 43 L* 45 L* 91 04/26/21 04/26/21 04/27/21 17:14 20:36 07:27 POC Glucose 74 111 H 128 H Medications Administered Current Inpatient Medications Acetaminophen (Acetaminophen 325 Mg Tab) 650 mg PO Q4H PRN PRN Reason: Pain or Fever Stop: 05/19/21 02:56 Last Admin: 04/25/21 21:26 Dose: 650 mg Documented by: Azithromycin (Azithromycin 250 Mg Tab) 250 mg PO DAILY [facility]; Protocol Stop: 05/03/21 13:59 Last Admin: 04/27/21 08:18 Dose: 250 mg Documented by: Carbidopa/Levodopa (Carbidopa/Levodopa 25/100mg Tab) 2 tab PO QID [facility] Stop: 05/19/21 02:56 Last Admin: 04/27/21 08:18 Dose: 2 tab Documented by: Dextrose (Dextrose 50% 50 Ml Syringe) 25 - 50 ml IV UD PRN; Protocol PRN Reason: Hypoglycemia Protocol Stop: 05/19/21 02:56 Enoxaparin Sodium (Enoxaparin Inj 30 Mg/0.3 Ml Syr) 30 mg SQ BID [facility] Stop: 05/19/21 09:59 Last Admin: 04/27/21 08:19 Dose: 30 mg Documented by: Enteral Nutritional Formula (Fibersource Hn 1.2 Rudy 1000 Ml Bag) 1,000 ml NG UD [facility]; Protocol Stop: 05/20/21 17:14 Glucagon (Glucagon For Inj 1 Mg Vial) 1 mg SQ UD PRN; Protocol PRN Reason: Hypoglycemia Protocol Stop: 05/19/21 02:56 Glucose (Glucose 10 Tabs/Tube) 4 - 8 tabs PO UD PRN; Protocol PRN Reason: Hypoglycemia Protocol Stop: 05/19/21 02:56 Glucose (Glucose 40% Gel 15 Gm Tube) 15 - 30 gm PO UD PRN; Protocol PRN Reason: Hypoglycemia Protocol Stop: 05/19/21 02:56 Hydralazine HCl (Hydralazine Hcl 20 Mg/Ml Vial) 10 mg IV Q8 PRN PRN Reason: Blood Pressure - High Stop: 05/23/21 15:30 Last Admin: 04/24/21 23:48 Dose: 10 mg Documented by: Thiamine HCl 200 mg/ Sodium (Chloride) 52 mls @ 208 mls/hr IV QAM [facility] Stop: 05/19/21 08:59 Last Infusion: 04/27/21 09:11 Dose: Infused Documented by: Dexamethasone 6 mg/ Syringe 1.5 mls @ 1 mls/min IV QAM [facility] Stop: 05/19/21 09:44 Last Admin: 04/27/21 08:17 Dose: 1 mls/min Documented by: Folic Acid 1 mg/ Syringe 10 mls @ 5 mls/min IV QAM [facility] Stop: 05/19/21 09:44 Last Admin: 04/27/21 08:17 Dose: 5 mls/min Documented by: Famotidine 20 mg/ Syringe 5 mls @ 2.5 mls/min IV BID [facility] Stop: 05/19/21 09:44 Last Admin: 04/27/21 08:18 Dose: 2.5 mls/min Documented by: Insulin Aspart (Insulin Aspart 100 Units/Ml 3 Ml Pen) 0 units SC ACHS [facility] Stop: 05/19/21 03:29 Last Admin: 04/27/21 09:22 Dose: 1 units Documented by: Insulin Human NPH (Insulin Human Nph) [facility] Stop: 05/19/21 09:44 Last Admin: 04/27/21 09:21 Dose: 24 units Documented by: Lisinopril (Lisinopril 10 Mg Tab) 10 mg PO QAM [facility] Stop: 05/24/21 08:59 Last Admin: 04/27/21 08:17 Dose: 10 mg Documented by: Miscellaneous (Carbohydrates For Hypoglycemia ) 15 - 30 gm PO UD PRN PRN Reason: Hypoglycemia Protocol Stop: 05/19/21 02:56 Last Admin: 04/26/21 11:44 Dose: 30 gm Documented by: Ondansetron HCl (Ondansetron Inj 2 Mg/Ml 2 Ml Vial) 4 mg IV Q6H PRN PRN Reason: Nausea Stop: 05/19/21 02:56 Polyethylene Glycol (Polyethylene (Miralax) 17 Gm Pack) 17 gm PO DAILY PRN PRN Reason: Constipation Stop: 05/19/21 02:56 PG Care Time/CCT Total # of Minutes Spent Total Time Spent with Patient: Total time spent is greater than 50% in coordination of care (as documented) at patient's floor/unit and/or counseling patient: Coding Level of Care Code 44856 Subseq Hosp Care Lvl 3 Diagnoses COVID U07.1 Metabolic encephalopathy G93.41 Dysphagia R13.10 Hypernatremia E87.0 Hypokalemia E87.6 Diabetes E11.9 Rhabdomyolysis M62.82 Increased anion gap metabolic acidosis E87.2 Parkinsons disease G20 HLD (hyperlipidemia) E78.5 Pressure injury of back, stage 2 L89.102
[2021-04-28 08:00] LABS: Creatinine Clr Calc Pharmacy 47.4 ml/min; Est GFR (African American) 72.9 ml/min; Est GFR (Non-African American) 62.9 ml/min
[2021-04-28] MEDS: CARBIDOPA/LEVODOPA 25/100MG TAB PO SCH ×4 (08:36→20:19)
[2021-04-28] MEDS: FOLIC ACID 1 MG in SYRINGE 9.8 ML IV SCH (08:36)
[2021-04-28] MEDS: ENOXAPARIN INJ 30 MG/0.3 ML SYR SQ SCH ×2 (08:36→20:18)
[2021-04-28] MEDS: AZITHROMYCIN 250 MG TAB PO SCH (08:36)
[2021-04-28] MEDS: lisinopril 10 MG TAB PO SCH (08:36)
[2021-04-28] MEDS: dexAMETHasone 6 MG in SYRINGE 0 ML IV SCH (08:36)
[2021-04-28] MEDS: INSULIN ASPART 100 UNITS/ML 3 ML PEN SC SCH ×4 (08:38→20:37)
[2021-04-28] MEDS: THIAMINE HCL 200 MG in SODIUM CHLORIDE 0.9% 50 ML IV SCH (08:42)
[2021-04-28] MEDS: FAMOTIDINE 20 MG in SYRINGE 3 ML IV SCH ×2 (08:43→20:19)
[2021-04-28] MEDS ORDERED: INSULIN HUMAN NPH SC SCH (09:00)
--- NOTE | 2021-04-28 09:10 | Hospitalist Progress Note ---
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 with her confusion and dysphagia some studies show Parkinson's patients have worsening symptoms, cognitive impairment after infection needs PT/OT and will definitely need rehab first choice is [facility], family determining a back up plan move to medical floor, working on getting her out of negative pressure isolation daughter wants to try to visit her (2) Metabolic encephalopathy: Plan: suspect due to COVID encephalopathy as stated above, PD patients can have more cognitive impairment continue Thiamine and Folate IV while here - Cr remains stable - Tox screen negative - ETOH level <3.0 able to swallow safely (3) Dysphagia: Plan: pureed diet with clear liquids taking pills she will eat but needs fed by aide nausea today, poor intake, give NSS + 20mEq of K at 80cc/hr x 1 liter (4) Hypernatremia: Plan: sodium now normalized will continue oral feeding (5) Hypokalemia: Plan: continue to replete as needed (6) Diabetes: Plan: DMII on metformin - Glucose on arrival 272- last level we have 159 (2019) - Aspart sliding scale 100-140 (with CF 20) - Goal <180 continue Novolog SS, monitor for hypoglycemia low sugars resolved with loosing coverage, stop NPH after today since it is last dose of dexamethasone (7) Rhabdomyolysis: Plan: Unknown mechanism of how she ended up on the floor -CK was 1616 on admission - treated with LR at 100cc/hr - CPK down, Cr is 0.7 rhabdo is RESOLVED (8) Increased anion gap metabolic acidosis: Plan: likely combination of starvation ketosis, mild rhabdomyolysis. - resolved (9) Parkinsons disease: Plan: Continue with Carbidopa-Levadopa now taking po tremors are better suspect some of her cognitive impairment is due to PD (10) HLD (hyperlipidemia): Plan: Hold Zocor (11) Pressure injury of back, stage 2: Plan: Present on admission secondary to patient being found down at home - Optifoam placed to sacrum and heels - Offload every 2 hours Plan: will need rehab, PT/OT consulted looking into [facility] and SNF as back up Admission and Anticipated Discharge Date Admission Date: April 18, 2021 Subjective patient c/o nausea, not throwing up, mild abdominal pain on RN report, she had a BM last night so not an issue with constipation no fever, no dyspnea, stable on room air she is talking a lot more, she understands that her daughter is trying to visit and we are working on rehab placement Review of Systems Review of Systems: All systems reviewed & are unremarkable except as noted in Subjective Gastrointestinal: + abdominal pain and + nausea; no vomiting, no constipation and no diarrhea/loose stools Physical Exam Physical Exam: General: well developed, thin, no distress Neck: supple, trachea midline, normal thyroid Lungs: clear to auscultation bilaterally, normal respiratory effort, no accessory muscle use, no distress Heart: regular rate, S1 and S2, no murmur, peripheral pulses normal, capillary refill normal, no edema Abdomen: soft, NT, ND, + BS, no hepatomegaly, normal to percussion Extremities: normal in appearance, no cyanosis, no petechiae, strength is diminished bilaterally Neuro: awake, cooperative, moves all extremities, no focal motor deficits, + re sting tremors bilaterally, mild Psych: Awake, oriented to person and place, slow responses Results & Data Results & Data ([facility]) Vital Signs (Past 12 Hours) Vital Signs Temp Pulse Resp BP Pulse Ox 04/28/21 07:40 37.0 C 80 16 172/84 H 94 04/27/21 23:00 37.2 C 73 20 133/77 93 Laboratory Results Laboratory Results - last 24 hr 04/27/21 04/27/21 04/27/21 12:06 16:27 20:14 Creatinine Est Cr Clr Drug Dosing Est GFR ( Amer) Est GFR (Non-Af Amer) POC Glucose 259 H 167 H 157 H 04/28/21 04/28/21 07:16 07:54 Creatinine 0.88 Est Cr Clr Drug Dosing 47.4 Est GFR ( Amer) 72.9 Est GFR (Non-Af Amer) 62.9 POC Glucose 95 Medications Administered Current Inpatient Medications Acetaminophen (Acetaminophen 325 Mg Tab) 650 mg PO Q4H PRN PRN Reason: Pain or Fever Stop: 05/19/21 02:56 Last Admin: 04/25/21 21:26 Dose: 650 mg Documented by: Azithromycin (Azithromycin 250 Mg Tab) 250 mg PO DAILY [facility]; Protocol Stop: 05/03/21 13:59 Last Admin: 04/28/21 08:36 Dose: 250 mg Documented by: Carbidopa/Levodopa (Carbidopa/Levodopa 25/100mg Tab) 2 tab PO QID [facility] Stop: 05/19/21 02:56 Last Admin: 04/28/21 08:36 Dose: 2 tab Documented by: Dextrose (Dextrose 50% 50 Ml Syringe) 25 - 50 ml IV UD PRN; Protocol PRN Reason: Hypoglycemia Protocol Stop: 05/19/21 02:56 Enoxaparin Sodium (Enoxaparin Inj 30 Mg/0.3 Ml Syr) 30 mg SQ BID [facility] Stop: 05/19/21 09:59 Last Admin: 04/28/21 08:36 Dose: 30 mg Documented by: Glucagon (Glucagon For Inj 1 Mg Vial) 1 mg SQ UD PRN; Protocol PRN Reason: Hypoglycemia Protocol Stop: 05/19/21 02:56 Glucose (Glucose 10 Tabs/Tube) 4 - 8 tabs PO UD PRN; Protocol PRN Reason: Hypoglycemia Protocol Stop: 05/19/21 02:56 Glucose (Glucose 40% Gel 15 Gm Tube) 15 - 30 gm PO UD PRN; Protocol PRN Reason: Hypoglycemia Protocol Stop: 05/19/21 02:56 Hydralazine HCl (Hydralazine Hcl 20 Mg/Ml Vial) 10 mg IV Q8 PRN PRN Reason: Blood Pressure - High Stop: 05/23/21 15:30 Last Admin: 04/24/21 23:48 Dose: 10 mg Documented by: Thiamine HCl 200 mg/ Sodium (Chloride) 52 mls @ 208 mls/hr IV QAM [facility] Stop: 05/19/21 08:59 Last Admin: 04/28/21 08:42 Dose: 208 mls/hr Documented by: Dexamethasone 6 mg/ Syringe 1.5 mls @ 1 mls/min IV QAM [facility] Stop: 05/19/21 09:44 Last Admin: 04/28/21 08:36 Dose: 1 mls/min Documented by: Folic Acid 1 mg/ Syringe 10 mls @ 5 mls/min IV QAM [facility] Stop: 05/19/21 09:44 Last Admin: 04/28/21 08:36 Dose: 5 mls/min Documented by: Famotidine 20 mg/ Syringe 5 mls @ 2.5 mls/min IV BID [facility] Stop: 05/19/21 09:44 Last Admin: 04/28/21 08:43 Dose: 2.5 mls/min Documented by: Insulin Aspart (Insulin Aspart 100 Units/Ml 3 Ml Pen) 0 units SC ACHS [facility] Stop: 05/27/21 11:29 Last Admin: 04/28/21 08:38 Dose: Not Given Documented by: Insulin Human NPH (Insulin Human Nph) 18 units SC QAM [facility] Stop: 05/28/21 08:59 Last Admin: 04/28/21 08:37 Dose: 18 units Documented by: Lisinopril (Lisinopril 10 Mg Tab) 10 mg PO QAM [facility] Stop: 05/24/21 08:59 Last Admin: 04/28/21 08:36 Dose: 10 mg Documented by: Miscellaneous (Carbohydrates For Hypoglycemia ) 15 - 30 gm PO UD PRN PRN Reason: Hypoglycemia Protocol Stop: 05/19/21 02:56 Last Admin: 04/26/21 11:44 Dose: 30 gm Documented by: Ondansetron HCl (Ondansetron Inj 2 Mg/Ml 2 Ml Vial) 4 mg IV Q6H PRN PRN Reason: Nausea Stop: 05/19/21 02:56 Polyethylene Glycol (Polyethylene (Miralax) 17 Gm Pack) 17 gm PO DAILY PRN PRN Reason: Constipation Stop: 05/19/21 02:56 PG Care Time/CCT Total # of Minutes Spent Total Time Spent with Patient: Total time spent is greater than 50% in coordination of care (as documented) at patient's floor/unit and/or counseling patient: Coding Level of Care Code 11045 Subseq Hosp Care Lvl 2 Diagnoses COVID U07.1 Metabolic encephalopathy G93.41 Dysphagia R13.10 Hypernatremia E87.0 Hypokalemia E87.6 Diabetes E11.9 Rhabdomyolysis M62.82 Increased anion gap metabolic acidosis E87.2 Parkinsons disease G20 HLD (hyperlipidemia) E78.5 Pressure injury of back, stage 2 L89.102
[2021-04-28] MEDS ORDERED: NSS + 20MEQ KCL 20 MEQ/1,000 ML BAG IV SCH (09:30)
[2021-04-29 07:34] LABS: Hematocrit (blood only) 42.2 % (37-47); Hemoglobin 13.2 g/dL (12.0-16.0); Mean Corpuscular Hemoglobin 28.8 pg (25-34); Mean Corpuscular Hgb Conc 31.3 g/dL (32-36); Mean Corpuscular Volume 91.9 fL (80-100); Platelet Count 339 K/uL (130-400); RDW Coefficient of Variation 13.3 % (11.5-14.5); RDW Standard Deviation 43.7 fL (36.4-46.3); Red Blood Count 4.59 M/uL (4.2-5.4); White Blood Count 6.38 K/uL (4.8-10.8)
[2021-04-29 08:06] LABS: BUN Creatinine Ratio 27.6 (10-20); Calcium 9.1 mg/dl (8.5-10.1); Creatinine Clr Calc Pharmacy 48.5 ml/min; Est GFR (Non-African American) 64.7 ml/min; Potassium 4.1 mmol/L (3.5-5.1)
[2021-04-29] MEDS: CARBIDOPA/LEVODOPA 25/100MG TAB PO SCH ×4 (09:26→20:02)
[2021-04-29] MEDS: ENOXAPARIN INJ 30 MG/0.3 ML SYR SQ SCH ×2 (09:26→20:03)
[2021-04-29] MEDS: FOLIC ACID 1 MG in SYRINGE 9.8 ML IV SCH (09:27)
[2021-04-29] MEDS: lisinopril 10 MG TAB PO SCH (09:27)
[2021-04-29] MEDS: INSULIN ASPART 100 UNITS/ML 3 ML PEN SC SCH ×4 (09:28→21:10)
[2021-04-29] MEDS: FAMOTIDINE 20 MG in SYRINGE 3 ML IV SCH ×2 (09:31→20:03)
[2021-04-29] MEDS: THIAMINE HCL 200 MG in SODIUM CHLORIDE 0.9% 50 ML IV SCH (09:31)
--- NOTE | 2021-04-29 12:24 | Hospitalist Progress Note ---
Date of Service April 29, 2021 Assessment & Plan (1) COVID: Plan: upon presentation exact timing of symptom onset unclear minimal changes on CXR, down to room air for four days, no distress completed 10 days of dexamethasone 04/28 suspect COVID encephalopathy with her confusion and dysphagia some studies show Parkinson's patients have worsening symptoms, cognitive impairment after infection needs PT/OT and will definitely need rehab first choice is [facility], family determining a back up plan move to medical floor, working on getting her out of negative pressure isolation daughter wants to try to visit her can likely move out in 2 days per infection control (2) Metabolic encephalopathy: Plan: suspect due to COVID encephalopathy as stated above, PD patients can have more cognitive impairment continue Thiamine and Folate IV while here - Cr remains stable - Tox screen negative - ETOH level <3.0 able to swallow safely she is only oriented to person, could be some hospital delirium as well she is calm and cooperative (3) Dysphagia: Plan: pureed diet with clear liquids taking pills she will eat but needs fed by aide (4) Hypernatremia: Plan: sodium now normalized will continue oral feeding (5) Hypokalemia: Plan: continue to replete as needed (6) Diabetes: Plan: DMII on metformin - Glucose on arrival 272- last level we have 159 (2019) - Aspart sliding scale 100-140 (with CF 20) - Goal <180 continue Novolog SS, monitor for hypoglycemia sugars better now off dexamethasone (7) Rhabdomyolysis: Plan: Unknown mechanism of how she ended up on the floor -CK was 1616 on admission - treated with LR at 100cc/hr - CPK down, Cr is 0.7 rhabdo is RESOLVED (8) Increased anion gap metabolic acidosis: Plan: likely combination of starvation ketosis, mild rhabdomyolysis. - resolved (9) Parkinsons disease: Plan: Continue with Carbidopa-Levadopa now taking po tremors are better suspect some of her cognitive impairment is due to PD (10) HLD (hyperlipidemia): Plan: Hold Zocor (11) Pressure injury of back, stage 2: Plan: Present on admission secondary to patient being found down at home - Optifoam placed to sacrum and heels - Offload every 2 hours Plan: will need rehab, PT/OT consulted looking into [facility] and SNF as back up Admission and Anticipated Discharge Date Admission Date: April 18, 2021 Subjective patient sitting up in a chair, she is confused, thinks she is flying on airplane I explained she is in [place] at the hospital, she nodded her head she is eating okay but not great breathing room air, no distress at all, not coughing today like previous days no fever/chills, she denies nausea at this time I spoke with infection control, still need her in isolation a few days Review of Systems Review of Systems: All systems reviewed & are unremarkable except as noted in Subjective Physical Exam Physical Exam: General: well developed, thin, no distress Neck: supple, trachea midline, normal thyroid Lungs: clear to auscultation bilaterally, normal respiratory effort, no acces matt muscle use, no distress Heart: regular rate, S1 and S2, no murmur, peripheral pulses normal, capillary refill normal, no edema Abdomen: soft, NT, ND, + BS, no hepatomegaly, normal to percussion Extremities: normal in appearance, no cyanosis, no petechiae, strength is diminished bilaterally Neuro: awake, cooperative, moves all extremities, no focal motor deficits, + resting tremors bilaterally, mild Psych: Awake, oriented to person, not to place or time, slow responses Results & Data Results & Data ([facility]) Vital Signs (Past 12 Hours) Vital Signs Temp Pulse Resp BP Pulse Ox 04/29/21 08:04 36.8 C 91 H 20 167/76 H 93 Laboratory Results Laboratory Results - last 24 hr 04/28/21 04/28/21 04/29/21 16:55 20:26 06:42 WBC 6.38 RBC 4.59 Hgb 13.2 Hct 42.2 MCV 91.9 MCH 28.8 MCHC 31.3 L RDW Std Deviation 43.7 RDW Coeff of Ilan 13.3 Plt Count 339 MPV 10.0 Sodium Potassium Chloride Carbon Dioxide Anion Gap BUN Creatinine Est Cr Clr Drug Dosing Est GFR ( Amer) Est GFR (Non-Af Amer) BUN/Creatinine Ratio Glucose POC Glucose 178 H 128 H Calcium 04/29/21 04/29/21 04/29/21 06:42 07:44 12:04 WBC RBC Hgb Hct MCV MCH MCHC RDW Std Deviation RDW Coeff of Ilan Plt Count MPV Sodium 141 Potassium 4.1 Chloride 109 H Carbon Dioxide 28 Anion Gap 4.0 BUN 24 H Creatinine 0.86 Est Cr Clr Drug Dosing 48.5 Est GFR ( Amer) 75.0 Est GFR (Non-Af Amer) 64.7 BUN/Creatinine Ratio 27.6 H Glucose 86 POC Glucose 77 195 H Calcium 9.1 Medications Administered Current Inpatient Medications Acetaminophen (Acetaminophen 325 Mg Tab) 650 mg PO Q4H PRN PRN Reason: Pain or Fever Stop: 05/19/21 02:56 Last Admin: 04/25/21 21:26 Dose: 650 mg Documented by: Carbidopa/Levodopa (Carbidopa/Levodopa 25/100mg Tab) 2 tab PO QID [facility] Stop: 05/19/21 02:56 Last Admin: 04/29/21 09:26 Dose: 2 tab Documented by: Dextrose (Dextrose 50% 50 Ml Syringe) 25 - 50 ml IV UD PRN; Protocol PRN Reason: Hypoglycemia Protocol Stop: 05/19/21 02:56 Enoxaparin Sodium (Enoxaparin Inj 30 Mg/0.3 Ml Syr) 30 mg SQ BID [facility] Stop: 05/19/21 09:59 Last Admin: 04/29/21 09:26 Dose: 30 mg Documented by: Glucagon (Glucagon For Inj 1 Mg Vial) 1 mg SQ UD PRN; Protocol PRN Reason: Hypoglycemia Protocol Stop: 05/19/21 02:56 Glucose (Glucose 10 Tabs/Tube) 4 - 8 tabs PO UD PRN; Protocol PRN Reason: Hypoglycemia Protocol Stop: 05/19/21 02:56 Glucose (Glucose 40% Gel 15 Gm Tube) 15 - 30 gm PO UD PRN; Protocol PRN Reason: Hypoglycemia Protocol Stop: 05/19/21 02:56 Hydralazine HCl (Hydralazine Hcl 20 Mg/Ml Vial) 10 mg IV Q8 PRN PRN Reason: Blood Pressure - High Stop: 05/23/21 15:30 Last Admin: 04/24/21 23:48 Dose: 10 mg Documented by: Thiamine HCl 200 mg/ Sodium (Chloride) 52 mls @ 208 mls/hr IV QAM [facility] Stop: 05/19/21 08:59 Last Infusion: 04/29/21 10:08 Dose: Infused Documented by: Folic Acid 1 mg/ Syringe 10 mls @ 5 mls/min IV QAM [facility] Stop: 05/19/21 09:44 Last Admin: 12/07/21 09:27 Dose: 5 mls/min Documented by: Famotidine 20 mg/ Syringe 5 mls @ 2.5 mls/min IV BID [facility] Stop: 05/19/21 09:44 Last Admin: 04/29/21 09:31 Dose: 2.5 mls/min Documented by: Insulin Aspart (Insulin Aspart 100 Units/Ml 3 Ml Pen) 0 units SC ACHS [facility] Stop: 05/27/21 11:29 Last Admin: 04/29/21 09:28 Dose: Not Given Documented by: Lisinopril (Lisinopril 10 Mg Tab) 10 mg PO QAM [facility] Stop: 05/24/21 08:59 Last Admin: 04/29/21 09:27 Dose: 10 mg Documented by: Miscellaneous (Carbohydrates For Hypoglycemia ) 15 - 30 gm PO UD PRN PRN Reason: Hypoglycemia Protocol Stop: 05/19/21 02:56 Last Admin: 04/26/21 11:44 Dose: 30 gm Documented by: Ondansetron HCl (Ondansetron Inj 2 Mg/Ml 2 Ml Vial) 4 mg IV Q6H PRN PRN Reason: Nausea Stop: 05/19/21 02:56 Last Admin: 04/28/21 09:28 Dose: 4 mg Documented by: Polyethylene Glycol (Polyethylene (Miralax) 17 Gm Pack) 17 gm PO DAILY PRN PRN Reason: Constipation Stop: 05/19/21 02:56 PG Care Time/CCT Total # of Minutes Spent Total Time Spent with Patient: Total time spent is greater than 50% in coordination of care (as documented) at patient's floor/unit and/or counseling patient: Coding Level of Care Code 94023 Subseq Hosp Care Lvl 2 Diagnoses COVID U07.1 Metabolic encephalopathy G93.41 Dysphagia R13.10 Hypernatremia E87.0 Hypokalemia E87.6 Diabetes E11.9 Rhabdomyolysis M62.82 Increased anion gap metabolic acidosis E87.2 Parkinsons disease G20 HLD (hyperlipidemia) E78.5 Pressure injury of back, stage 2 L89.102
[2021-04-30] MEDS: CARBIDOPA/LEVODOPA 25/100MG TAB PO SCH ×4 (08:24→20:07)
[2021-04-30] MEDS: ENOXAPARIN INJ 30 MG/0.3 ML SYR SQ SCH ×2 (08:24→20:06)
[2021-04-30] MEDS: FOLIC ACID 1 MG in SYRINGE 9.8 ML IV SCH (08:25)
[2021-04-30] MEDS: lisinopril 10 MG TAB PO SCH (08:26)
[2021-04-30] MEDS: THIAMINE HCL 200 MG in SODIUM CHLORIDE 0.9% 50 ML IV SCH (08:34)
[2021-04-30] MEDS: FAMOTIDINE 20 MG in SYRINGE 3 ML IV SCH (08:35)
[2021-04-30] MEDS: INSULIN ASPART 100 UNITS/ML 3 ML PEN SC SCH ×4 (08:50→20:52)
--- NOTE | 2021-04-30 11:24 | Hospitalist Progress Note ---
Date of Service April 30, 2021 Assessment & Plan (1) COVID: Plan: upon presentation exact timing of symptom onset unclear minimal changes on CXR, fluctuating between room air and 2L completed 10 days of dexamethasone 04/28 suspect COVID encephalopathy with her confusion and dysphagia some studies show Parkinson's patients have worsening symptoms, cognitive impairment after infection needs PT/OT and will definitely need rehab first choice is [facility], family determining a back up plan move to medical floor, working on getting her out of negative pressure isolation daughter wants to try to visit her will check a CXR today since she is back on oxygen (2) Metabolic encephalopathy: Plan: suspect due to COVID encephalopathy as stated above, PD patients can have more cognitive impairment - Cr remains stable - Tox screen negative - ETOH level <3.0 able to swallow safely she is only oriented to person, could be some hospital delirium as well she is calm but pulled out IV site, pulling at reyes will check a UA and then remove reyes, can use a Purewick if needed try to limit tethers trying to move to private room for daughter to visit her (3) Dysphagia: Plan: pureed diet with clear liquids taking pills she will eat but needs fed by aide needs encouraged (4) Hypernatremia: Plan: sodium now normalized will continue oral feeding check labs today given more confusion (5) Hypokalemia: Plan: continue to replete as needed (6) Diabetes: Plan: DMII on metformin - Glucose on arrival 272- last level we have 159 (2019) - Aspart sliding scale 100-140 (with CF 20) - Goal <180 continue Novolog SS, monitor for hypoglycemia sugars better now off dexamethasone (7) Rhabdomyolysis: Plan: Unknown mechanism of how she ended up on the floor -CK was 1616 on admission - treated with LR at 100cc/hr - CPK down, Cr is 0.7 rhabdo is RESOLVED (8) Increased anion gap metabolic acidosis: Plan: likely combination of starvation ketosis, mild rhabdomyolysis. - resolved (9) Parkinsons disease: Plan: Continue with Carbidopa-Levadopa now taking po tremors are better suspect some of her cognitive impairment is due to PD (10) HLD (hyperlipidemia): Plan: Hold Zocor (11) Pressure injury of back, stage 2: Plan: Present on admission secondary to patient being found down at home - Optifoam placed to sacrum and heels - Offload every 2 hours Plan: will need rehab, PT/OT consulted looking into [facility] and SNF as back up Admission and Anticipated Discharge Date Admission Date: April 18, 2021 Subjective patient sitting up in a chair she remains confused, pulled her IV site out this morning trying to encourage her to eat and drink, difficult checking with infection control again about moving her to private room Review of Systems Review of Systems: Unobtainable due to cognitive status Physical Exam Physical Exam: General: well developed, thin, no distress Neck: supple, trachea midline, normal thyroid Lungs: clear to auscultation bilaterally, normal respiratory effort, no accessory muscle use, no distress Heart: regular rate, S1 and S2, no murmur, peripheral pulses normal, capillary refill normal, no edema Abdomen: soft, NT, ND, + BS, no hepatomegaly, normal to percussion Extremities: normal in appearance, no cyanosis, no petechiae, strength is diminished bilaterally Neuro: awake, cooperative, moves all extremities, no focal motor deficits, + resting tremors bilaterally, mild Psych: Awake, oriented to person, not to place or time, she is confused, pulling at IV line and reyes Results & Data Results & [facility] ([facility]) Vital Signs (Past 12 Hours) Vital Signs Temp Pulse Resp BP Pulse Ox 04/30/21 08:02 36.9 C 84 20 164/78 H 94 Laboratory Results Laboratory Results - last 24 hr 04/29/21 04/29/21 04/29/21 12:04 16:23 20:40 POC Glucose 195 H 104 H 135 H 04/30/21 07:51 POC Glucose 141 H Medications Administered Current Inpatient Medications Acetaminophen (Acetaminophen 325 Mg Tab) 650 mg PO Q4H PRN PRN Reason: Pain or Fever Stop: 05/19/21 02:56 Last Admin: 04/25/21 21:26 Dose: 650 mg Documented by: Carbidopa/Levodopa (Carbidopa/Levodopa 25/100mg Tab) 2 tab PO QID [facility] Stop: 05/19/21 02:56 Last Admin: 04/30/21 08:24 Dose: 2 tab Documented by: Dextrose (Dextrose 50% 50 Ml Syringe) 25 - 50 ml IV UD PRN; Protocol PRN Reason: Hypoglycemia Protocol Stop: 05/19/21 02:56 Enoxaparin Sodium (Enoxaparin Inj 30 Mg/0.3 Ml Syr) 30 mg SQ BID [facility] Stop: 05/19/21 09:59 Last Admin: 04/30/21 08:24 Dose: 30 mg Documented by: Glucagon (Glucagon For Inj 1 Mg Vial) 1 mg SQ UD PRN; Protocol PRN Reason: Hypoglycemia Protocol Stop: 05/19/21 02:56 Glucose (Glucose 10 Tabs/Tube) 4 - 8 tabs PO UD PRN; Protocol PRN Reason: Hypoglycemia Protocol Stop: 05/19/21 02:56 Glucose (Glucose 40% Gel 15 Gm Tube) 15 - 30 gm PO UD PRN; Protocol PRN Reason: Hypoglycemia Protocol Stop: 05/19/21 02:56 Hydralazine HCl (Hydralazine Hcl 20 Mg/Ml Vial) 10 mg IV Q8 PRN PRN Reason: Blood Pressure - High Stop: 05/23/21 15:30 Last Admin: 04/24/21 23:48 Dose: 10 mg Documented by: Thiamine HCl 200 mg/ Sodium (Chloride) 52 mls @ 208 mls/hr [facility] Stop: 05/19/21 08:59 Last Infusion: 04/30/21 08:50 Dose: Infused Documented by: Folic Acid 1 mg/ Syringe 10 mls @ 5 mls/min IV QAM [facility] Stop: 05/19/21 09:44 Last Admin: 04/30/21 08:25 Dose: 5 mls/min Documented by: Famotidine 20 mg/ Syringe 5 mls @ 2.5 mls/min IV BID [facility] Stop: 05/19/21 09:44 Last Admin: 04/30/21 08:35 Dose: 2.5 mls/min Documented by: Insulin Aspart (Insulin Aspart 100 Units/Ml 3 Ml Pen) 0 units SC ACHS [facility] Stop: 05/27/21 11:29 Last Admin: 04/30/21 08:50 Dose: 2 units Documented by: Lisinopril (Lisinopril 10 Mg Tab) 10 mg PO QAM [facility] Stop: 05/24/21 08:59 Last Admin: 04/30/21 08:26 Dose: 10 mg Documented by: Miscellaneous (Carbohydrates For Hypoglycemia ) 15 - 30 gm PO UD PRN PRN Reason: Hypoglycemia Protocol Stop: 05/19/21 02:56 Last Admin: 04/26/21 11:44 Dose: 30 gm Documented by: Ondansetron HCl (Ondansetron Inj 2 Mg/Ml 2 Ml Vial) 4 mg IV Q6H PRN PRN Reason: Nausea Stop: 05/19/21 02:56 Last Admin: 04/28/21 09:28 Dose: 4 mg Documented by: Polyethylene Glycol (Polyethylene (Miralax) 17 Gm Pack) 17 gm PO DAILY PRN PRN Reason: Constipation Stop: 05/19/21 02:56 PG Care Time/CCT Total # of Minutes Spent Total Time Spent with Patient: Total time spent is greater than 50% in coordination of care (as documented) at patient's floor/unit and/or counseling patient: Coding Level of Care Code 84799 Subseq Hosp Care Lvl 2 Diagnoses COVID U07.1 Metabolic encephalopathy G93.41 Dysphagia R13.10 Hypernatremia E87.0 Hypokalemia E87.6 Diabetes E11.9 Rhabdomyolysis M62.82 Increased anion gap metabolic acidosis E87.2 Parkinsons disease G20 HLD (hyperlipidemia) E78.5 Pressure injury of back, stage 2 L89.102
[2021-04-30] MEDS ORDERED: LACTATED RINGER'S 1,000 ML IV SCH (11:45)
--- NOTE | 2021-04-30 12:51 | XRay Report ---
XR chest 1V portable CLINICAL HISTORY: hypoxia, confusion. Follow-up airspace opacities COMPARISON STUDY: 04/23/2021 TECHNIQUE: 1 view of the chest FINDINGS: Single frontal view of the chest demonstrates the cardiomediastinal silhouette to be within normal li mits. There is a decreased inspiratory effort with elevation of hemidiaphragms. Previously identified alveolar opacities are not significantly changed. There is no evidence for pleural effusion. There i s no evidence for vascular congestion. There is no acute osseous pathology. IMPRESSION: Decreased inspiration with no significant interval change in bilateral airspace opacities . ACT 112: Negative or not required by law. Electronically signed by: Vineet Mcneal M.D. 04/30/2021 12:50 PM
[2021-04-30 13:17] LABS: Basophils # (auto) 0.01 K/uL (0-0.2); Basophils % (auto) 0.1 %; Eosinophils # (auto) 0.04 K/uL (0-0.5); Eosinophils % (auto) 0.3 %; Hematocrit (blood only) 43.4 % (37-47); Immature Granulocytes # (auto) 0.02 K/uL (0.00-0.02); Immature Granulocytes % (auto) 0.2 %; Lymphocytes # (auto) 1.07 K/uL (1.2-3.4); Lymphocytes % (auto) 8.1 %; Mean Corpuscular Hemoglobin 29.2 pg (25-34); Mean Corpuscular Hgb Conc 32.3 g/dL (32-36); Mean Corpuscular Volume 90.4 fL (80-100); Mean Platelet Volume 9.9 fL (7.4-10.4); Monocytes # (auto) 0.76 K/uL (0.11-0.59); Monocytes % (auto) 5.8 %; Neutrophils # (auto) 11.24 K/uL (1.4-6.5); Neutrophils % (auto) 85.5 %; Platelet Count 365 K/uL (130-400); RDW Coefficient of Variation 13.3 % (11.5-14.5); RDW Standard Deviation 43.1 fL (36.4-46.3); White Blood Count 13.14 K/uL (4.8-10.8)
[2021-04-30 13:55] LABS: Alanine Aminotransferase 18 (12-78); Albumin Globulin Ratio 0.7 (0.9-2); Albumin Level 2.8 gm/dl (3.4-5.0); Alkaline Phosphatase 69 U/L (45-117); Aspartate Aminotransferase 26 U/L (15-37); BUN Creatinine Ratio 24.3 (10-20); Bilirubin,Total 0.7 mg/dl (0.2-1); Blood Urea Nitrogen 24 mg/dl (7-18); Calcium 9.2 mg/dl (8.5-10.1); Carbon Dioxide 25 mmol/L (21-32); Chloride 105 mmol/L (98-107); Creatinine Clr Calc Pharmacy 42.1 ml/min; Est GFR (African American) 63.3 ml/min; Est GFR (Non-African American) 54.6 ml/min; Glucose 232 mg/dl (70-99); Magnesium 2.9 mg/dl (1.8-2.4); Sodium 137 mmol/L (136-145); Total Protein 6.8 gm/dl (6.4-8.2)
[2021-04-30 13:59] LABS: C Reactive Protein < 0.29 mg/dl (0-0.29)
[2021-04-30 14:32] LABS: Appearance Urine Cloudy (Clear); Bacteria Urine Automated 4+ (Negative); Bilirubin Urine Negative (Negative); Blood Urine 3+ (Negative); Color Urine Dark Yellow; Glucose Urine UA Negative (Negative); Ketones Urine Trace (Negative); Leukocyte Esterase Urine 2+ (Negative); Nitrite Urine Positive (Negative); Protein Urine 2+ (Negative); RBC Urine Automated >30 /hpf (0-4); Specific Gravity Urine 1.019 (1.000-1.030); Urobilinogen Urine Negative (Negative); WBC Urine Automated >30 /hpf (0-5); pH Urine 5.5 (4.5-7.5)
[2021-05-01 08:03] LABS: Creatinine Clr Calc Pharmacy 41.7 ml/min; Est GFR (African American) 62.5 ml/min; Est GFR (Non-African American) 53.9 ml/min
[2021-05-01] MEDS: ENOXAPARIN INJ 30 MG/0.3 ML SYR SQ SCH ×2 (08:51→20:22)
[2021-05-01] MEDS: CARBIDOPA/LEVODOPA 25/100MG TAB PO SCH ×4 (08:52→20:23)
[2021-05-01] MEDS: lisinopril 10 MG TAB PO SCH (08:53)
[2021-05-01] MEDS: INSULIN ASPART 100 UNITS/ML 3 ML PEN SC SCH ×4 (08:55→20:21)
[2021-05-01] MEDS: FOLIC ACID 1 MG in SYRINGE 9.8 ML IV SCH (09:49)
[2021-05-01] MEDS ORDERED: levoFLOXacin 500 MG TAB PO ONE (11:00)
--- NOTE | 2021-05-01 13:21 | Hospitalist Progress Note ---
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 with her confusion and dysphagia some studies show Parkinson's patients have worsening symptoms, cognitive impairment after infection needs PT/OT and will definitely need rehab first choice is [facility], family determining a back up plan CXR is stable on 04/30 plan to move out of negative pressure on 05/02 if room is available (2) Metabolic encephalopathy: Plan: suspect due to COVID encephalopathy as stated above, PD patients can have more cognitive impairment - Cr remains stable - Tox screen negative - ETOH level <3.0 able to swallow safely she is only oriented to person, could be some hospital delirium as well she is calm but pulled out IV site, pulling at reyes on 04/30 much better today she has a UTI, E coli, treating with Levaquin PO and reyes out try to get daughter to visit this weekend (3) UTI (urinary tract infection): Plan: E coli growing on culture give Levaquin 500mg PO daily, await sensitivities she does not have an IV site so trying to use oral options (4) Dysphagia: Plan: pureed diet with clear liquids taking pills she will eat but needs fed by aide today she ate 100% breakfast and 75% lunch (5) Hypernatremia: Plan: sodium now normalized will continue oral feeding check labs today given more confusion (6) Hypokalemia: Plan: continue to replete as needed stable today (7) Diabetes: Plan: DMII on metformin - Glucose on arrival 272- last level we have 159 (2019) - Aspart sliding scale 100-140 (with CF 20) - Goal <180 continue Novolog SS, monitor for hypoglycemia sugars better now off dexamethasone (8) Rhabdomyolysis: Plan: Unknown mechanism of how she ended up on the floor -CK was 1616 on admission - treated with LR at 100cc/hr - CPK down, Cr is 0.7 rhabdo is RESOLVED (9) Increased anion gap metabolic acidosis: Plan: likely combination of starvation ketosis, mild rhabdomyolysis. - resolved (10) Parkinsons disease: Plan: Continue with Carbidopa-Levadopa now taking po tremors are better suspect some of her cognitive impairment is due to PD (11) HLD (hyperlipidemia): Plan: Hold Zocor (12) Pressure injury of back, stage 2: Plan: Present on admission secondary to patient being found down at home - Optifoam placed to sacrum and heels - Offload every 2 hours Plan: will need rehab, PT/OT consulted looking into [facility] and SNF as back up Admission and Anticipated Discharge Date Admission Date: April 18, 2021 Subjective patient is much calmer today and more alert, answers questions quickly she says her breathing is good, no abdominal complaints she is oriented to person only, does not know she is in the hospital RN said she ate all of her breakfast and 75% of lunch, drinking well, but she needs fed she is taking her medications discussed with infection control, she can come off precautions on 05/02, tomorrow RN said she has not urinated since reyes was out, bladder scanned for 180, will encourage PO intake will straight cath PRN if unable to void q8 and bladder scan > 300 she was later able to void in bedpan, only 70cc post void residual I updated her daughter Aline over the phone, will try to get her into room outside of the COVID unit tomorrow Review of Systems Review of Systems: Unobtainable due to cognitive status (confused, but pleasant and comfort, says he has no pain and her breathing is stable) Physical Exam Physical Exam: General: well developed, thin, no distress Neck: supple, trachea midline, normal thyroid Lungs: clear to auscultation bilaterally, normal respiratory effort, no accessory muscle use, no distress Heart: regular rate, S1 and S2, no murmur, peripheral pulses normal, capillary refill normal, no edema Abdomen: soft, NT, ND, + BS, no hepatomegaly, normal to percussion Extremities: normal in appearance, no cyanosis, no petechiae, strength is diminished bilaterally Neuro: awake, cooperative, moves all extremities, no focal motor deficits, + resting tremors bilaterally, mild Psych: Awake, oriented to person, not to place or time, she is confused but more cooperative today Results & Data Results & Data ([facility]) Vital Signs (Past 12 Hours) Vital Signs Temp Pulse Resp BP Pulse Ox 05/01/21 08:24 36.8 C 70 20 125/81 98 Laboratory Results Laboratory Results - last 24 hr 12/08/21 12/08/21 12/08/21 12:23 12:50 12:50 Sodium 137 Potassium 4.0 Chloride 105 Carbon Dioxide 25 Anion Gap 7.0 BUN 24 H Creatinine 0.99 Est Cr Clr Drug Dosing 42.1 Est GFR ( Amer) 63.3 Est GFR (Non-Af Amer) 54.6 BUN/Creatinine Ratio 24.3 H Glucose 232 H POC Glucose Calcium 9.2 Magnesium 2.9 H Total Bilirubin 0.7 AST 26 ALT 18 Alkaline Phosphatase 69 C-Reactive Protein < 0.29 Total Protein 6.8 Albumin 2.8 L Globulin 4.0 Albumin/Globulin Ratio 0.7 L Procalcitonin < 0.05 Urine Color Dark Yellow Urine Appearance Cloudy A Urine pH 5.5 Ur Specific [place] 1.019 Urine Protein 2+ H Urine Glucose (UA) Negative Urine Ketones Trace H Urine Blood 3+ H Urine Nitrite Positive A Urine Bilirubin Negative Urine Urobilinogen Negative Ur Leukocyte Esterase 2+ H Urine WBC (Auto) >30 H Urine RBC (Auto) >30 H U Hyaline Cast (Auto) 1-5 U Epithel Cells (Auto) 10-20 H Urine Bacteria (Auto) 4+ H Urine Crystals Not Reportable 04/30/21 04/30/21 05/01/21 16:34 20:29 07:09 Sodium Potassium Chloride Carbon Dioxide Anion Gap BUN Creatinine 1.00 Est Cr Clr Drug Dosing 41.7 Est GFR ( Amer) 62.5 Est GFR (Non-Af Amer) 53.9 BUN/Creatinine Ratio Glucose POC Glucose 164 H 265 H Calcium Magnesium Total Bilirubin AST ALT Alkaline Phosphatase C-Reactive Protein Total Protein Albumin Globulin Albumin/Globulin Ratio Procalcitonin Urine Color Urine Appearance Urine pH Ur Specific [place] Urine Protein Urine Glucose (UA) Urine Ketones Urine Blood Urine Nitrite Urine Bilirubin Urine Urobilinogen Ur Leukocyte Esterase Urine WBC (Auto) Urine RBC (Auto) U Hyaline Cast (Auto) U Epithel Cells (Auto) Urine Bacteria (Auto) Urine Crystals 05/01/21 05/01/21 07:57 11:59 Sodium Potassium Chloride Carbon Dioxide Anion Gap BUN Creatinine Est Cr Clr Drug Dosing Est GFR ( Amer) Est GFR (Non-Af Amer) BUN/Creatinine Ratio Glucose POC Glucose 141 H 263 H Calcium Magnesium Total Bilirubin AST ALT Alkaline Phosphatase C-Reactive Protein Total Protein Albumin Globulin Albumin/Globulin Ratio Procalcitonin Urine Color Urine Appearance Urine pH Ur Specific [place] Urine Protein Urine Glucose (UA) Urine Ketones Urine Blood Urine Nitrite Urine Bilirubin Urine Urobilinogen Ur Leukocyte Esterase Urine WBC (Auto) Urine RBC (Auto) U Hyaline Cast (Auto) U Epithel Cells (Auto) Urine Bacteria (Auto) Urine Crystals Medications Administered Current Inpatient Medications Acetaminophen (Acetaminophen 325 Mg Tab) 650 mg PO Q4H PRN PRN Reason: Pain or Fever Stop: 05/19/21 02:56 Last Admin: 04/25/21 21:26 Dose: 650 mg Documented by: Carbidopa/Levodopa (Carbidopa/Levodopa 25/100mg Tab) 2 tab PO QID [facility] Stop: 05/19/21 02:56 Last Admin: 05/01/21 13:22 Dose: 2 tab Documented by: Dextrose (Dextrose 50% 50 Ml Syringe) 25 - 50 ml IV UD PRN; Protocol PRN Reason: Hypoglycemia Protocol Stop: 05/19/21 02:56 Enoxaparin Sodium (Enoxaparin Inj 30 Mg/0.3 Ml Syr) 30 mg SQ BID [facility] Stop: 05/19/21 09:59 Last Admin: 05/01/21 08:51 Dose: 30 mg Documented by: Glucagon (Glucagon For Inj 1 Mg Vial) 1 mg SQ UD PRN; Protocol PRN Reason: Hypoglycemia Protocol Stop: 05/19/21 02:56 Glucose (Glucose 10 Tabs/Tube) 4 - 8 tabs PO UD PRN; Protocol PRN Reason: Hypoglycemia Protocol Stop: 05/19/21 02:56 Glucose (Glucose 40% Gel 15 Gm Tube) 15 - 30 gm PO UD PRN; Protocol PRN Reason: Hypoglycemia Protocol Stop: 05/19/21 02:56 Folic Acid 1 mg/ Syringe 10 mls @ 5 mls/min IV QAM [facility] Stop: 05/19/21 09:44 Last Admin: 05/01/21 09:49 Dose: Not Given Documented by: Insulin Aspart (Insulin Aspart 100 Units/Ml 3 Ml Pen) 0 units SC ACHS [facility] Stop: 05/27/21 11:29 Last Admin: 05/01/21 12:34 Dose: 8 units Documented by: Levofloxacin (Levofloxacin 250 Mg Tablet) 250 mg PO DAILY@1100 [facility]; Protocol Stop: 05/06/21 10:59 Lisinopril (Lisinopril 10 Mg Tab) 10 mg PO QAM [facility] Stop: 05/24/21 08:59 Last Admin: 05/01/21 08:53 Dose: 10 mg Documented by: Miscellaneous (Carbohydrates For Hypoglycemia ) 15 - 30 gm PO UD PRN PRN Reason: Hypoglycemia Protocol Stop: 05/19/21 02:56 Last Admin: 04/26/21 11:44 Dose: 30 gm Documented by: Ondansetron HCl (Ondansetron Inj 2 Mg/Ml 2 Ml Vial) 4 mg IV Q6H PRN PRN Reason: Nausea Stop: 05/19/21 02:56 Last Admin: 04/28/21 09:28 Dose: 4 mg Documented by: Polyethylene Glycol (Polyethylene (Miralax) 17 Gm Pack) 17 gm PO DAILY PRN PRN Reason: Constipation Stop: 05/19/21 02:56 PG Care Time/CCT Total # of Minutes Spent Total Time Spent: 33 Total Time Spent with Patient: Total time spent is greater than 50% in coordination of care (as documented) at patient's floor/unit and/or counseling patient: 10 minutes talking with her daughter on the phone 23 minutes on chart review, examination, talking with RN, documentation Coding Level of Care Code 76325 Subseq Hosp Care Lvl 3 Diagnoses COVID U07.1 Metabolic encephalopathy G93.41 Dysphagia R13.10 Hypernatremia E87.0 Hypokalemia E87.6 Diabetes E11.9 Rhabdomyolysis M62.82 Increased anion gap metabolic acidosis E87.2 Parkinsons disease G20 HLD (hyperlipidemia) E78.5 Pressure injury of back, stage 2 L89.102 UTI (urinary tract infection) N39.0
[2021-05-02] MEDS: FOLIC ACID 1 MG in SYRINGE 9.8 ML IV SCH (08:03)
[2021-05-02] MEDS: ENOXAPARIN INJ 30 MG/0.3 ML SYR SQ SCH ×2 (08:12→20:28)
[2021-05-02] MEDS: lisinopril 10 MG TAB PO SCH (08:13)
[2021-05-02] MEDS: CARBIDOPA/LEVODOPA 25/100MG TAB PO SCH ×4 (08:14→20:28)
[2021-05-02] MEDS: INSULIN ASPART 100 UNITS/ML 3 ML PEN SC SCH ×4 (09:12→21:15)
[2021-05-02] MEDS: levoFLOXacin 250 MG TABLET PO SCH (10:43)
[2021-05-02] MEDS: PYRIDOXINE HCL 50 MG TAB PO SCH ×2 (12:25→20:27)
[2021-05-02] MEDS: CHOLECALCIFEROL 1,000 UNITS 25 MCG TAB PO SCH ×2 (12:26→20:28)
[2021-05-02] MEDS: CYANOCOBALAMIN (VITAMIN B-12) 2,500 MCG TAB.SUBL SL SCH (12:26)
--- NOTE | 2021-05-03 01:47 | Hospitalist Progress Note ---
Date of Service May 03, 2021 Assessment & Plan (1) COVID: Plan: upon presentation exact timing of symptom onset unclear minimal changes on CXR, fluctuating between room air and 2L completed 10 days of dexamethasone 04/28 suspect COVID encephalopathy with her confusion and dysphagia some studies show Parkinson's patients have worsening symptoms, cognitive impairment after infection needs PT/OT and will definitely need rehab first choice is [facility], family determining a back up plan CXR is stable on 04/30 plan to move out of negative pressure once a bed is available (2) Metabolic encephalopathy: Plan: suspect due to COVID encephalopathy as stated above, PD patients can have more cognitive impairment - Cr remains stable - Tox screen negative - ETOH level <3.0 able to swallow safely she is only oriented to person, could be some hospital delirium as well she is calm but pulled out IV site, pulling at reyes on 04/30 much better past two days, although she is disoriented she is pleasant she has a UTI, E coli, treating with Levaquin PO and reyes out try to get daughter to visit this weekend (3) UTI (urinary tract infection): Plan: E coli growing on culture, nava sensitive give Levaquin 250mg PO daily, finish 5 days she does not have an IV site so trying to use oral options (4) Dysphagia: Plan: pureed diet with clear liquids taking pills she will eat but needs fed by aide today she ate 100% breakfast and 75% lunch (5) Hypernatremia: Plan: sodium now normalized will continue oral feeding check labs today given more confusion (6) Hypokalemia: Plan: continue to replete as needed stable today (7) Diabetes: Plan: DMII on metformin - Glucose on arrival 272- last level we have 159 (2019) - Aspart sliding scale 100-140 (with CF 20) - Goal <180 continue Novolog SS, monitor for hypoglycemia sugars better now off dexamethasone (8) Rhabdomyolysis: Plan: Unknown mechanism of how she ended up on the floor -CK was 1616 on admission - treated with LR at 100cc/hr - CPK down, Cr is 0.7 rhabdo is RESOLVED (9) Increased anion gap metabolic acidosis: Plan: likely combination of starvation ketosis, mild rhabdomyolysis. - resolved (10) Parkinsons disease: Plan: Continue with Carbidopa-Levadopa now taking po tremors are better suspect some of her cognitive impairment is due to PD (11) HLD (hyperlipidemia): Plan: Hold Zocor (12) Pressure injury of back, stage 2: Plan: Present on admission secondary to patient being found down at home - Optifoam placed to sacrum and heels - Offload every 2 hours Plan: will need rehab, PT/OT consulted looking into [facility] and SNF as back up move out of negative pressure and have daughter visit Admission and Anticipated Discharge Date Admission Date: April 18, 2021 Subjective patient doing well today, very calm and cooperative eating and drinking well breathing comfortably, she denies pain she is still completely disoriented, does not know she is in a hospital trying to get her out of negative pressure so her daughter can visit Review of Systems Review of Systems: Unobtainable due to cognitive status (delirium, appears comfortable, no pain) Physical Exam Physical Exam: General: well developed, thin, no distress Neck: supple, trachea midline, normal thyroid Lungs: clear to auscultation bilaterally, normal respiratory effort, no accessory muscle use, no distress Heart: regular rate, S1 and S2, no murmur, peripheral pulses normal, capillary refill normal, no edema Abdomen: soft, NT, ND, + BS, no hepatomegaly, normal to percussion Extremities: normal in appearance, no cyanosis, no petechiae, strength is diminished bilaterally Neuro: awake, cooperative, moves all extremities, no focal motor deficits, + resting tremors bilaterally, mild Psych: Awake, oriented to person, not to place or time, she is confused but more cooperative today Results & Data Results & Data ([facility]) Vital Signs (Past 12 Hours) Vital Signs Temp Pulse Resp BP BP Pulse Ox Pulse Ox 05/02/21 23:30 37 C 74 18 163/73 H 98 05/02/21 20:00 94 05/02/21 15:14 36.4 C 59 L 18 142/85 H 94 Laboratory Results Laboratory Results - last 24 hr 05/02/21 05/02/21 05/02/21 07:53 11:35 16:35 POC Glucose 166 H 191 H 84 05/02/21 20:41 POC Glucose 192 H Medications Administered Current Inpatient Medications Acetaminophen (Acetaminophen 325 Mg Tab) 650 mg PO Q4H PRN PRN Reason: Pain or Fever Stop: 05/19/21 02:56 Last Admin: 04/25/21 21:26 Dose: 650 mg Documented by: Carbidopa/Levodopa (Carbidopa/Levodopa 25/100mg Tab) 2 tab PO QID [facility] Stop: 05/19/21 02:56 Last Admin: 05/02/21 20:28 Dose: 2 tab Documented by: Cyanocobalamin (Cyanocobalamin (Vitamin B-12) 2,500 Mcg Tab.Subl) 2,500 mcg SL DAILY [facility] Stop: 06/01/21 11:17 Last Admin: 05/02/21 12:26 Dose: 2,500 mcg Documented by: Dextrose (Dextrose 50% 50 Ml Syringe) 25 - 50 ml IV UD PRN; Protocol PRN Reason: Hypoglycemia Protocol Stop: 05/19/21 02:56 Enoxaparin Sodium (Enoxaparin Inj 30 Mg/0.3 Ml Syr) 30 mg SQ BID [facility] Stop: 05/19/21 09:59 Last Admin: 05/02/21 20:28 Dose: 30 mg Documented by: Glucagon (Glucagon For Inj 1 Mg Vial) 1 mg SQ UD PRN; Protocol PRN Reason: Hypoglycemia Protocol Stop: 05/19/21 02:56 Glucose (Glucose 10 Tabs/Tube) 4 - 8 tabs PO UD PRN; Protocol PRN Reason: Hypoglycemia Protocol Stop: 05/19/21 02:56 Glucose (Glucose 40% Gel 15 Gm Tube) 15 - 30 gm PO UD PRN; Protocol PRN Reason: Hypoglycemia Protocol Stop: 05/19/21 02:56 Insulin Aspart (Insulin Aspart 100 Units/Ml 3 Ml Pen) 0 units SC ACHS [facility] Stop: 05/27/21 11:29 Last Admin: 05/02/21 21:15 Dose: 2 units Documented by: Levofloxacin (Levofloxacin 250 Mg Tablet) 250 mg PO DAILY@1100 CHIKI; Protocol Stop: 05/06/21 10:59 Last Admin: 05/02/21 10:43 Dose: 250 mg Documented by: Miscellaneous (Carbohydrates For Hypoglycemia ) 15 - 30 gm PO UD PRN PRN Reason: Hypoglycemia Protocol Stop: 05/19/21 02:56 Last Admin: 04/26/21 11:44 Dose: 30 gm Documented by: Ondansetron HCl (Ondansetron Inj 2 Mg/Ml 2 Ml Vial) 4 mg IV Q6H PRN PRN Reason: Nausea Stop: 05/19/21 02:56 Last Admin: 04/28/21 09:28 Dose: 4 mg Documented by: Polyethylene Glycol (Polyethylene (Miralax) 17 Gm Pack) 17 gm PO DAILY PRN PRN Reason: Constipation Stop: 05/19/21 02:56 Pyridoxine HCl (Pyridoxine Hcl 50 Mg Tab) 100 mg PO BID [facility] Stop: 06/01/21 11:17 Last Admin: 05/02/21 20:27 Dose: 100 mg Documented by: Vitamin D (Cholecalciferol 1,000 Units 25 Mcg Tab) 1,000 units PO BID [facility] Stop: 06/01/21 11:17 Last Admin: 05/02/21 20:28 Dose: 1,000 units Documented by: PG Care Time/CCT Total # of Minutes Spent Total Time Spent with Patient: Total time spent is greater than 50% in coordination of care (as documented) at patient's floor/unit and/or counseling patient: Coding Level of Care Code 24384 Subseq Hosp Care Lvl 2 Diagnoses COVID U07.1 Metabolic encephalopathy G93.41 UTI (urinary tract infection) N39.0 Dysphagia R13.10 Hypernatremia E87.0 Hypokalemia E87.6 Diabetes E11.9 Rhabdomyolysis M62.82 Increased anion gap metabolic acidosis E87.2 Parkinsons disease G20 HLD (hyperlipidemia) E78.5 Pressure injury of back, stage 2 L89.102
[2021-05-03] MEDS: CARBIDOPA/LEVODOPA 25/100MG TAB PO SCH ×4 (08:08→21:08)
[2021-05-03] MEDS: CHOLECALCIFEROL 1,000 UNITS 25 MCG TAB PO SCH ×2 (08:09→21:08)
[2021-05-03] MEDS: CYANOCOBALAMIN (VITAMIN B-12) 2,500 MCG TAB.SUBL SL SCH (08:09)
[2021-05-03] MEDS: ENOXAPARIN INJ 30 MG/0.3 ML SYR SQ SCH ×2 (08:09→21:08)
[2021-05-03] MEDS: PYRIDOXINE HCL 50 MG TAB PO SCH ×2 (08:10→21:08)
[2021-05-03] MEDS: INSULIN ASPART 100 UNITS/ML 3 ML PEN SC SCH ×4 (08:17→21:09)
[2021-05-03] MEDS: levoFLOXacin 250 MG TABLET PO SCH (11:55)
--- NOTE | 2021-05-03 13:36 | Hospitalist Progress Note ---
Date of Service May 03, 2021 Assessment & Plan (1) Pneumonia due to COVID-19 virus: Plan: clinically resolved off NC O2 today s/p 10 day course of dexamethasone with 12/6 dose as final (2) Metabolic encephalopathy: Plan: suspect due to COVID encephalopathy, hospital psychosis, UTI, etc. supportive care only use antipsychotics if severe delirium/agitation (3) UTI (urinary tract infection): Plan: E coli Levaquin 250mg PO daily, day #2 today (4) Dysphagia: Plan: pureed diet no issues per staff (5) Hypernatremia: Plan: resolved (6) Hypokalemia: Plan: resolved (7) Diabetes: Plan: labile but overall control fair/acceptable to smooth out peaks will add lantus 8 units daily (8) Rhabdomyolysis: Plan: found on floor at her home likely cause of rhabdo COVID can also cause rhabdo resolved (9) Increased anion gap metabolic acidosis: Plan: likely combination of starvation ketosis, mild rhabdomyolysis. - resolved (10) Parkinsons disease: Plan: Continue with Carbidopa-Levadopa per home dosing does she have underlying dementia from PD?? or is everything we are seeing encephalopathy? will speak with family (11) HLD (hyperlipidemia): (12) Pressure injury of back, stage 2: Plan: Present on admission secondary to patient being found down at home Optifoam placed to sacrum and heels Plan: will need rehab post-d/c cont PT/OT looking into [facility] and SNF as back up Admission and Anticipated Discharge Date Admission Date: April 18, 2021 Subjective no issues overnight confusion remains eating fair during the visit her O2 NC was out of her nose - I checked her sats and she was mid 90s in RA NC O2 discontinued no issues per staff Review of Systems Review of Systems: Unobtainable due to cognitive status Physical Exam Physical Exam: gen - thin, frail, EPS vs tremor of facial muscles from parkinson's mouth - MMM neck - no JVD heart - RRR, s1 s2, 1/6 MADELINE LSB lungs - CTA b/l abd - soft NT ext - no edema neuro - tremor of facial muscles Results & Data Results & Data ([facility]) Vital Signs (Past 12 Hours) Vital Signs Temp Pulse Resp BP Pulse Ox 05/03/21 06:38 37.1 C 77 18 124/70 97 PG Care Time/CCT Total # of Minutes Spent Total Time Spent with Patient: Total time spent is greater than 50% in coordination of care (as documented) at patient's floor/unit and/or counseling patient: Coding Level of Care Code 36725 Subseq Hosp Care Lvl 2 Diagnoses Metabolic encephalopathy G93.41 UTI (urinary tract infection) N39.0 Dysphagia R13.10 Hypernatremia E87.0 Hypokalemia E87.6 Diabetes E11.9 Rhabdomyolysis M62.82 Increased anion gap metabolic acidosis E87.2 Parkinsons disease G20 HLD (hyperlipidemia) E78.5 Pressure injury of back, stage 2 L89.102 Pneumonia due to COVID-19 virus U07.1; J12.82
[2021-05-03] MEDS: NYSTATIN SUSP 500,000 U/5 ML UDC PO SCH ×2 (17:11→21:10)
[2021-05-04 07:06] LABS: BUN Creatinine Ratio 32.1 (10-20); Creatinine Clr Calc Pharmacy 55.6 ml/min; Est GFR (African American) 88.5 ml/min; Est GFR (Non-African American) 76.3 ml/min; Potassium 4.3 mmol/L (3.5-5.1)
[2021-05-04 07:17] LABS: Thyroid Stimulating Hormone 1.81 uIu/ml (0.300-4.500)
[2021-05-04] MEDS: INSULIN ASPART 100 UNITS/ML 3 ML PEN SC SCH ×4 (08:26→22:00)
[2021-05-04] MEDS: CHOLECALCIFEROL 1,000 UNITS 25 MCG TAB PO SCH ×2 (08:27→21:47)
[2021-05-04] MEDS: NYSTATIN SUSP 500,000 U/5 ML UDC PO SCH ×4 (08:27→21:47)
[2021-05-04] MEDS: PYRIDOXINE HCL 50 MG TAB PO SCH ×2 (08:27→21:47)
[2021-05-04] MEDS: ENOXAPARIN INJ 30 MG/0.3 ML SYR SQ SCH ×2 (08:27→21:48)
[2021-05-04] MEDS: CARBIDOPA/LEVODOPA 25/100MG TAB PO SCH ×4 (08:28→21:48)
[2021-05-04] MEDS: CYANOCOBALAMIN (VITAMIN B-12) 2,500 MCG TAB.SUBL SL SCH (08:28)
[2021-05-04] MEDS: levoFLOXacin 250 MG TABLET PO SCH (11:11)
[2021-05-04] MEDS: INSULIN GLARGINE SOLOSTAR 100 UNITS/ML 3 ML PEN SC SCH (12:39)
[2021-05-04] MEDS ORDERED: INFLUENZA VACCINE HIGH DOSE PF 65+ 0.7 ML SYR IM ONE (16:30)
[2021-05-04] MEDS ORDERED: PNEUMOCOCCAL POLYSACCHARIDES 25 MCG/0.5 ML VIAL/SYR IM ONE (17:00)
--- NOTE | 2021-05-04 22:54 | Hospitalist Progress Note ---
Date of Service May 04, 2021 Assessment & Plan (1) Pneumonia due to COVID-19 virus: Plan: clinically resolved NC O2 weaned off 05/03/21 s/p 10 day course of dexamethasone no symptoms at this time (2) Metabolic encephalopathy: Plan: suspect due to COVID encephalopathy, hospital psychosis, UTI, etc. supportive care only use antipsychotics if severe delirium/agitation I am uncertain what her baseline is - I have attempted to call her daughter twice without success (3) UTI (urinary tract infection): Plan: E coli Levaquin 250mg PO daily, day #3 today (4) Dysphagia: Plan: pureed diet no issues per staff (5) Hypernatremia: Plan: resolved (6) Hypokalemia: Plan: resolved (7) Diabetes: Plan: had been labile but overall control improving with addition of lantus (8) Rhabdomyolysis: Plan: found on floor at her home likely cause of rhabdo COVID can also cause rhabdo either way it is resolved (9) Increased anion gap metabolic acidosis: Plan: likely combination of starvation ketosis, mild rhabdomyolysis - resolved (10) Parkinsons disease: Plan: Continue with Carbidopa-Levadopa per home dosing does she have underlying dementia from PD?? or is everything we are seeing encephalopathy? will speak with family (11) HLD (hyperlipidemia): (12) Pressure injury of back, stage 2: Plan: Present on admission secondary to patient being found down at home Optifoams, frequent turning, etc (13) Chronic kidney disease, stage 3a: Plan: baseline CrCl 50s (14) Urinary retention: Plan: 2nd to UTI? due to need for recurrent straight cathing I simply asked nursing to place back a reyes can perform a spontaneous voiding trial after her UTI is treated Plan: will need rehab post-d/c cont PT/OT looking into [facility] and SNF as back up have left 2 messages for pt's daughter - still have not been able to connect with her Admission and Anticipated Discharge Date Admission Date: April 18, 2021 Subjective overnight needed straight cath due to urinary retention today, she has not voided spontaneously once again remains confused but pleasant, cooperative, no agitation eating fair per staff Review of Systems Review of Systems: denies pain in any location otherwise cannot elicit a full ROS Physical Exam Physical Exam: gen - thin, frail, tremor of facial muscles from parkinson's - unchanged mouth - MMM neck - no JVD heart - RRR, s1 s2, 1/6 MADELINE LSB lungs - minimal rales bases abd - soft NT ND BS+ ext - no edema, pulses 2+ b/l neuro - tremor of facial muscles, mild tremor of arms Results & Data Results & Data ([facility]) Vital Signs (Past 12 Hours) Vital Signs Temp Pulse Resp BP BP Pulse Ox 05/04/21 22:46 36.8 C 73 18 115/66 93 05/04/21 16:05 37.1 C 90 18 118/71 94 Laboratory Results Laboratory Results - last 24 hr 05/04/21 05/04/21 05/04/21 06:19 06:19 07:44 Sodium 141 Potassium 4.3 Chloride 106 Carbon Dioxide 31 Anion Gap 4.0 BUN 24 H Creatinine 0.75 Est Cr Clr Drug Dosing 55.6 Est GFR ( Amer) 88.5 Est GFR (Non-Af Amer) 76.3 BUN/Creatinine Ratio 32.1 H Glucose 181 H POC Glucose 147 H Calcium 9.0 Vitamin B12 1554 H TSH 1.810 05/04/21 05/04/21 05/04/21 11:30 16:36 20:34 Sodium Potassium Chloride Carbon Dioxide Anion Gap BUN Creatinine Est Cr Clr Drug Dosing Est GFR ( Amer) Est GFR (Non-Af Amer) BUN/Creatinine Ratio Glucose POC Glucose 265 H 110 H 153 H Calcium Vitamin B12 TSH PG Care Time/CCT Total # of Minutes Spent Total Time Spent with Patient: Total time spent is greater than 50% in coordination of care (as documented) at patient's floor/unit and/or counseling patient: Coding Level of Care Code 73844 Subseq Hosp Care Lvl 2 Diagnoses Pneumonia due to COVID-19 virus U07.1; J12.82 Metabolic encephalopathy G93.41 UTI (urinary tract infection) N39.0 Dysphagia R13.10 Hypernatremia E87.0 Hypokalemia E87.6 Diabetes E11.9 Rhabdomyolysis M62.82 Increased anion gap metabolic acidosis E87.2 Parkinsons disease G20 HLD (hyperlipidemia) E78.5 Pressure injury of back, stage 2 L89.102 Chronic kidney disease, stage 3a N18.31 Urinary retention R33.9
[2021-05-05 06:56] LABS: Creatinine Clr Calc Pharmacy 53.5 ml/min; Est GFR (African American) 84.4 ml/min; Est GFR (Non-African American) 72.8 ml/min
[2021-05-05] MEDS: CARBIDOPA/LEVODOPA 25/100MG TAB PO SCH ×4 (08:34→21:29)
[2021-05-05] MEDS: CHOLECALCIFEROL 1,000 UNITS 25 MCG TAB PO SCH ×2 (08:35→21:30)
[2021-05-05] MEDS: ENOXAPARIN INJ 30 MG/0.3 ML SYR SQ SCH ×2 (08:36→21:30)
[2021-05-05] MEDS: NYSTATIN SUSP 500,000 U/5 ML UDC PO SCH ×4 (08:36→21:31)
[2021-05-05] MEDS: PYRIDOXINE HCL 50 MG TAB PO SCH ×2 (08:37→21:31)
[2021-05-05] MEDS: INSULIN GLARGINE SOLOSTAR 100 UNITS/ML 3 ML PEN SC SCH (08:37)
[2021-05-05] MEDS: INSULIN ASPART 100 UNITS/ML 3 ML PEN SC SCH ×4 (08:57→21:32)
[2021-05-05] MEDS: CYANOCOBALAMIN (VITAMIN B-12) 2,500 MCG TAB.SUBL SL SCH (09:57)
[2021-05-05] MEDS: levoFLOXacin 250 MG TABLET PO SCH (11:01)
--- NOTE | 2021-05-05 20:36 | Hospitalist Progress Note ---
Date of Service May 05, 2021 Assessment & Plan (1) Pneumonia due to COVID-19 virus: Plan: clinically resolved NC O2 weaned off 05/03/21 s/p 10 day course of dexamethasone no symptoms at this time (2) Metabolic encephalopathy: Plan: suspect due to COVID encephalopathy, hospital psychosis, UTI, etc. supportive care only use antipsychotics if severe delirium/agitation I am uncertain what her baseline is - I have attempted to call her daughter twice without success (3) UTI (urinary tract infection): Plan: E coli Levaquin 250mg PO daily, day #4 today (4) Dysphagia: Plan: pureed diet no issues per staff (5) Hypernatremia: Plan: resolved (6) Hypokalemia: Plan: resolved (7) Diabetes: Plan: lability continues increase lantus to 10 units daily increase carb ratio given her body habitus she is likely a type 1 diabetic lability may continue check a1c this admission - last was in 2019 (8) Rhabdomyolysis: Plan: found on floor at her home likely cause of rhabdo COVID can also cause rhabdo either way it is resolved (9) Increased anion gap metabolic acidosis: Plan: likely combination of starvation ketosis, mild rhabdomyolysis - resolved (10) Parkinsons disease: Plan: Continue with Carbidopa-Levadopa per home dosing does she have underlying dementia from PD?? or is everything we are seeing encephalopathy? will speak with family (11) HLD (hyperlipidemia): (12) Pressure injury of back, stage 2: Plan: Present on admission secondary to patient being found down at home Optifoams, frequent turning, etc (13) Chronic kidney disease, stage 3a: Plan: baseline CrCl 50s BMP in am (14) Urinary retention: Plan: 2nd to UTI? due to need for recurrent straight cathing I simply asked nursing to place back a reyes can perform a spontaneous voiding trial after her UTI is treated Plan: will need rehab post-d/c cont PT/OT looking into [facility] and SNF as back up have left 2 messages for pt's daughter - still have not been able to connect with her will try again tomorrow Admission and Anticipated Discharge Date Admission Date: April 18, 2021 Subjective no issues overnight patient pleasantly confused cannot answer any orientation questions correctly (could not tell me the year or where we were or why she was here) cannot provide meaningful history or ROS Review of Systems Review of Systems: Unobtainable due to cognitive status Physical Exam Physical Exam: gen - thin, frail, tremor of facial muscles from parkinson's - unchanged; pleasant confusion mouth - MMM neck - no JVD heart - RRR, s1 s2, 1/6 MADELINE LSB lungs - minimal rales bases (dry) b/l, no wheeze, no increased wob abd - soft NT ND BS+ ext - no edema, pulses 2+ b/l neuro - tremor of facial muscles, mild tremor of arms psych - oriented to person only Results & Data Results & Data ([facility]) Vital Signs (Past 12 Hours) Vital Signs Temp Pulse Resp BP Pulse Ox 05/05/21 15:46 36.9 C 86 16 109/68 94 Laboratory Results Laboratory Results - last 24 hr 05/04/21 05/05/21 05/05/21 20:34 05:39 08:08 Creatinine 0.78 Est Cr Clr Drug Dosing 53.5 Est GFR ( Amer) 84.4 Est GFR (Non-Af Amer) 72.8 POC Glucose 153 H 166 H 05/05/21 05/05/21 12:06 17:12 Creatinine Est Cr Clr Drug Dosing Est GFR ( Amer) Est GFR (Non-Af Amer) POC Glucose 172 H 81 PG Care Time/CCT Total # of Minutes Spent Total Time Spent with Patient: Total time spent is greater than 50% in coordination of care (as documented) at patient's floor/unit and/or counseling patient: Coding Level of Care Code 35277 Subseq Hosp Care Lvl 2 Diagnoses Pneumonia due to COVID-19 virus U07.1; J12.82 Metabolic encephalopathy G93.41 UTI (urinary tract infection) N39.0 Dysphagia R13.10 Hypernatremia E87.0 Hypokalemia E87.6 Diabetes E11.9 Rhabdomyolysis M62.82 Increased anion gap metabolic acidosis E87.2 Parkinsons disease G20 HLD (hyperlipidemia) E78.5 Pressure injury of back, stage 2 L89.102 Chronic kidney disease, stage 3a N18.31 Urinary retention R33.9
[2021-05-06 06:23] LABS: Hematocrit (blood only) 37.6 % (37-47); Hemoglobin 11.7 g/dL (12.0-16.0); Mean Corpuscular Hemoglobin 28.5 pg (25-34); Mean Corpuscular Hgb Conc 31.1 g/dL (32-36); Mean Corpuscular Volume 91.7 fL (80-100); Mean Platelet Volume 10.4 fL (7.4-10.4); Platelet Count 219 K/uL (130-400); RDW Standard Deviation 46.5 fL (36.4-46.3); White Blood Count 3.99 K/uL (4.8-10.8)
[2021-05-06 07:04] LABS: BUN Creatinine Ratio 32.7 (10-20); Calcium 9.2 mg/dl (8.5-10.1); Creatinine Clr Calc Pharmacy 52.2 ml/min; Est GFR (African American) 81.8 ml/min; Est GFR (Non-African American) 70.6 ml/min; Potassium 4.2 mmol/L (3.5-5.1)
[2021-05-06] MEDS: PYRIDOXINE HCL 50 MG TAB PO SCH ×3 (08:43→22:10)
[2021-05-06] MEDS: CYANOCOBALAMIN (VITAMIN B-12) 2,500 MCG TAB.SUBL SL SCH (08:44)
[2021-05-06] MEDS: ENOXAPARIN INJ 30 MG/0.3 ML SYR SQ SCH ×2 (08:44→22:00)
[2021-05-06] MEDS: CHOLECALCIFEROL 1,000 UNITS 25 MCG TAB PO SCH ×3 (08:44→22:10)
[2021-05-06] MEDS: CARBIDOPA/LEVODOPA 25/100MG TAB PO SCH ×5 (08:44→22:10)
[2021-05-06] MEDS: NYSTATIN SUSP 500,000 U/5 ML UDC PO SCH ×5 (08:44→22:10)
[2021-05-06] MEDS: INSULIN ASPART 100 UNITS/ML 3 ML PEN SC SCH ×4 (08:45→20:52)
[2021-05-06] MEDS: INSULIN GLARGINE SOLOSTAR 100 UNITS/ML 3 ML PEN SC SCH (08:45)
[2021-05-06] MEDS: risperiDONE ODT 0.5 MG SOLTAB PO SCH ×2 (22:01→22:10)
--- NOTE | 2021-05-07 00:11 | Hospitalist Progress Note ---
Date of Service May 06, 2021 Assessment & Plan (1) Pneumonia due to COVID-19 virus: Plan: clinically resolved NC O2 weaned off 05/03/21 s/p 10 day course of dexamethasone no symptoms at this time lung exam stable (2) Metabolic encephalopathy: Plan: suspect due to COVID encephalopathy, hospital psychosis, UTI, etc. can't rule out a subacute CVA but her neuro exam is nonfocal given that the hallucinations/confusion are worse will trial risperdal 0.25mg HS due to persistent nature of symptoms will obtain MRI brain (if she can tolerate) - r/o subacute CVA, chronic SDH (due to falls), etc consider empiric B1 recent b12/tsh wnl (3) UTI (urinary tract infection): Plan: E coli Levaquin 250mg PO daily, day #5 today (4) Dysphagia: Plan: pureed diet no issues per staff (5) Hypernatremia: Plan: resolved (6) Hypokalemia: Plan: resolved (7) Diabetes: Plan: lability continues increase lantus to 10 units daily adjust novolog given her body habitus she is likely a type 1 diabetic lability may continue check a1c this admission - last was in 2019 (8) Rhabdomyolysis: Plan: found on floor at her home likely cause of rhabdo COVID can also cause rhabdo either way - resolved (9) Increased anion gap metabolic acidosis: Plan: likely combination of starvation ketosis, mild rhabdomyolysis - resolved (10) Parkinsons disease: Plan: Continue with Carbidopa-Levadopa per home dosing does she have underlying dementia from PD?? finally spoke with pt's daughter -- she reports that as of a few months ago her cognition was intact current mental status/ behavior is very unusual for her per the daughter MRI brain (11) HLD (hyperlipidemia): (12) Pressure injury of back, stage 2: Plan: Present on admission secondary to patient being found down at home Optifoams, frequent turning, etc (13) Chronic kidney disease, stage 3a: Plan: baseline CrCl 50s BMP in am (14) Urinary retention: Plan: 2nd to UTI? s/p reyes reinsertion spontaneous voiding trial perhaps in 1 week Plan: will need rehab post-d/c cont PT/OT case management helping with post-d/c disposition finally connected with pt's daughter Aline spent 20+ minutes discussing current issues, care plan, mental status issues, disposition will speak with infection control tomorrow; see if she can come out of isolation so family can visit offered zoom option -- daughter not sure it would be fruitful Admission and Anticipated Discharge Date Admission Date: April 18, 2021 Subjective patient resting in bed comfortably staff report hallucinations and confusion - ongoing since admission during my visit she was calm, cooperative, comfortable could not tell me where she was, the year, etc but some recall of old events - could tell me she worked at [employer] for 45 years, told me the name of her daughter, etc unable to provide any meaningful ROS eating ok per staff Review of Systems Review of Systems: Unobtainable due to cognitive status Physical Exam Physical Exam: gen - thin, frail, tremor of facial muscles from parkinson's - unchanged; pleasant confusion mouth - MMM neck - no JVD heart - tachy, regular rhythm, s1 s2 lungs - minimal rales bases (dry) b/l abd - soft NT ND BS+ ext - no edema, pulses 2+ b/l neuro - tremor of facial muscles, mild tremor of arms; strength 5/5 x 4 exts; no facial droop; speech fluent/clear psych - oriented to person only Results & Data Results & Data ([facility]) Vital Signs (Past 12 Hours) Vital Signs Temp Pulse Resp BP BP Pulse Ox 05/06/21 22:22 36.8 C 80 14 98/61 L 92 05/06/21 15:35 37.3 C 109 H 18 105/68 95 Laboratory Results Laboratory Results - last 24 hr 05/06/21 05/06/21 05/06/21 05:35 05:35 08:11 WBC 3.99 L RBC 4.10 L Hgb 11.7 L Hct 37.6 MCV 91.7 MCH 28.5 MCHC 31.1 L RDW Std Deviation 46.5 H RDW Coeff of Ilan 14.0 Plt Count 219 MPV 10.4 Sodium 140 Potassium 4.2 Chloride 107 Carbon Dioxide 30 Anion Gap 3.0 BUN 26 H Creatinine 0.80 Est Cr Clr Drug Dosing 52.2 Est GFR ( Amer) 81.8 Est GFR (Non-Af Amer) 70.6 BUN/Creatinine Ratio 32.7 H Glucose 180 H POC Glucose 186 H Calcium 9.2 05/06/21 05/06/21 05/06/21 11:59 17:05 20:25 WBC RBC Hgb Hct MCV MCH MCHC RDW Std Deviation RDW Coeff of Ilan Plt Count MPV Sodium Potassium Chloride Carbon Dioxide Anion Gap BUN Creatinine Est Cr Clr Drug Dosing Est GFR ( Amer) Est GFR (Non-Af Amer) BUN/Creatinine Ratio Glucose POC Glucose 240 H 152 H 105 H Calcium PG Care Time/CCT Total # of Minutes Spent Total Time Spent with Patient: Total time spent is greater than 50% in coordination of care (as documented) at patient's floor/unit and/or counseling patient: Coding Level of Care Code 39455 Subseq Hosp Care Lvl 3 Diagnoses Pneumonia due to COVID-19 virus U07.1; J12.82 Metabolic encephalopathy G93.41 UTI (urinary tract infection) N39.0 Dysphagia R13.10 Hypernatremia E87.0 Hypokalemia E87.6 Diabetes E11.9 Rhabdomyolysis M62.82 Increased anion gap metabolic acidosis E87.2 Parkinsons disease G20 HLD (hyperlipidemia) E78.5 Pressure injury of back, stage 2 L89.102 Chronic kidney disease, stage 3a N18.31 Urinary retention R33.9
[2021-05-07] MEDS: INSULIN ASPART 100 UNITS/ML 3 ML PEN SC SCH ×4 (09:20→20:46)
[2021-05-07] MEDS: INSULIN GLARGINE SOLOSTAR 100 UNITS/ML 3 ML PEN SC SCH (09:24)
[2021-05-07] MEDS: NYSTATIN SUSP 500,000 U/5 ML UDC PO SCH ×4 (09:24→20:37)
[2021-05-07] MEDS: ENOXAPARIN INJ 30 MG/0.3 ML SYR SQ SCH ×2 (09:25→20:37)
[2021-05-07] MEDS: CARBIDOPA/LEVODOPA 25/100MG TAB PO SCH ×4 (09:25→20:34)
[2021-05-07] MEDS: CHOLECALCIFEROL 1,000 UNITS 25 MCG TAB PO SCH ×2 (09:25→20:35)
[2021-05-07] MEDS: CYANOCOBALAMIN (VITAMIN B-12) 2,500 MCG TAB.SUBL SL SCH (09:26)
[2021-05-07] MEDS: PYRIDOXINE HCL 50 MG TAB PO SCH ×2 (09:26→20:35)
[2021-05-07] MEDS: risperiDONE ODT 0.5 MG SOLTAB PO SCH (20:35)
--- NOTE | 2021-05-07 20:44 | Hospitalist Progress Note ---
Date of Service May 07, 2021 Assessment & Plan (1) Pneumonia due to COVID-19 virus: Plan: clinically resolved NC O2 weaned off 05/03/21 and stable in RA since s/p 10 day course of dexamethasone no symptoms at this time lung exam remains stable (2) Metabolic encephalopathy: Plan: suspect due to COVID encephalopathy, hospital psychosis, UTI, etc. can't rule out a subacute CVA but her neuro exam is nonfocal given that the hallucinations/confusion are worse will trial risperdal 0.25mg HS due to persistent nature of symptoms will obtain MRI brain (if she can tolerate) - r/o subacute CVA, chronic SDH (due to falls), etc consider empiric B1 recent b12/tsh wnl spoke with pt's daughter yesterday - she states that several months ago the patient was a/o x 3 and living independently (3) UTI (urinary tract infection): Plan: E coli course of Levaquin completed (4) Dysphagia: Plan: pureed diet no issues per staff (5) Hypernatremia: Plan: resolved (6) Hypokalemia: Plan: resolved (7) Diabetes: Plan: lability improving with adjustments in lantus + novolog given her body habitus she is likely a type 1 diabetic will be prone to lability (8) Rhabdomyolysis: Plan: found on floor at her home likely cause of rhabdo COVID can also cause rhabdo either way - resolved (9) Parkinsons disease: Plan: Continue with Carbidopa-Levadopa per home dosing does she have underlying dementia from PD?? finally spoke with pt's daughter -- she reports that as of a few months ago her cognition was intact current mental status/ behavior is very unusual for her per the daughter MRI brain ordered and pending risperdal low dose 0.25mg HS to help w/ severe delirium (10) HLD (hyperlipidemia): (11) Pressure injury of back, stage 2: Plan: Present on admission secondary to patient being found down at home [employer], frequent turning, etc there is now eschar forming - will ask wound care to see again; need for santyl's or mechanical debridement? add MVI/vit C/zinc/thiamine (12) Chronic kidney disease, stage 3a: Plan: baseline CrCl 50s stable (13) Urinary retention: Plan: 2nd to UTI? s/p reyes reinsertion 05/04/21 spontaneous voiding trial perhaps in 1 week Plan: will need rehab post-d/c cont PT/OT case management helping with post-d/c disposition finally connected with pt's daughter Aline on 05/06/21 discussed current issues, care plan, mental status issues, disposition offered zoom option to see her mom -- daughter not sure it would be fruitful I spoke with infection control - patient is 20 days past her + test - can come out of isolation Admission and Anticipated Discharge Date Admission Date: April 18, 2021 Subjective pt pleasantly confused as previous overnight she refused the risperdal staff are concerned about tissue injury over lower sacral region - mild odor eating >50% of meals no other concerns per staff spoke with infection control - cleared to be removed from COVID unit Review of Systems Review of Systems: Unobtainable due to cognitive status Physical Exam Physical Exam: gen - thin, frail, tremor of facial muscles from parkinson's - unchanged; pleasant confusion as previous mouth - MMM neck - no JVD heart - RRR, s1 s2, 1/6 MADELINE LSB lungs - minimal rales bases (dry) - primarily the right base abd - soft NT ND BS+ ext - no edema, pulses 2+ b/l neuro - tremor of facial muscles, mild tremor of arms; strength 5/5 x 4 exts; no facial droop; speech fluent/clear psych - oriented to person only skin - sacral ulcer with overlying eschar, about 1.5cm in diameter; no surrounding cellulitis; no purulence; stage 2/3 Results & Data Results & Data ([facility]) Vital Signs (Past 12 Hours) Vital Signs Temp Pulse Resp BP Pulse Ox 05/07/21 16:09 36.9 C 75 20 107/66 94 Laboratory Results Laboratory Results - last 24 hr 05/06/21 05/07/21 05/07/21 20:25 08:13 11:41 POC Glucose 105 H 160 H 128 H 05/07/21 05/07/21 16:58 20:38 POC Glucose 115 H 143 H PG Care Time/CCT Total # of Minutes Spent Total Time Spent with Patient: Total time spent is greater than 50% in coordination of care (as documented) at patient's floor/unit and/or counseling patient: Coding Level of Care Code 66034 Subseq Hosp Care Lvl 2 Diagnoses Pneumonia due to COVID-19 virus U07.1; J12.82 Metabolic encephalopathy G93.41 UTI (urinary tract infection) N39.0 Dysphagia R13.10 Hypernatremia E87.0 Hypokalemia E87.6 Diabetes E11.9 Rhabdomyolysis M62.82 Parkinsons disease G20 HLD (hyperlipidemia) E78.5 Pressure injury of back, stage 2 L89.102 Chronic kidney disease, stage 3a N18.31 Urinary retention R33.9
--- NOTE | 2021-05-08 07:43 | Magnetic Resonance Report ---
MRI OF THE BRAIN WITHOUT IV CONTRAST CLINICAL HISTORY: Delirium. Covid. Parkinson's. COMPARISON STUDY: CT of the brain dated 04/18/2021. TECHNIQUE: MRI of the brain was performed utilizing various T1 and T2-weighted sequences in the axial , sagittal, and coronal planes. IV contrast was not administered for this examination. FINDINGS: Brain parenchyma: There is age-related involutional change noting moderate patchy subcortical and per iventricular microangiopathic disease. There is no hemorrhage or mass effect. There is no restricted diffusion to suggest acute ischemia. Maldonado-white matter differentiation is preserved. No extra-axial f luid collection is seen. The cerebellar tonsils are normal in configuration. Ventricles, sulci, and cisterns: Prominent secondary to involutional change. Pituitary and sella: Unremarkable. Intracranial vasculature: Normal flow voids are maintained at the skull base. Orbits: The bony orbits are grossly intact. Orbital contents are normal in appearance. Sinuses and mastoids: There are bilateral mastoid effusions. Because of thickening and secretions are noted in the sphenoid sinuses. The remaining paranasal sinuses are clear. Calvarium: Unremarkable. Cervical cord: Partially visualized cervical spinal cord is normal in morphology and signal intensity . Soft tissues: The left parotid gland is surgically absent. IMPRESSION: Senescent changes as above with no acute intracranial abnormality. ACT 112: Negative or not required by law. Electronically signed by: Edy Jett M.D. 05/08/2021 7:42 AM
[2021-05-08] MEDS: CYANOCOBALAMIN (VITAMIN B-12) 2,500 MCG TAB.SUBL SL SCH (09:22)
[2021-05-08] MEDS: PYRIDOXINE HCL 50 MG TAB PO SCH ×2 (09:22→20:27)
[2021-05-08] MEDS: CHOLECALCIFEROL 1,000 UNITS 25 MCG TAB PO SCH ×2 (09:22→20:25)
[2021-05-08] MEDS: NYSTATIN SUSP 500,000 U/5 ML UDC PO SCH ×4 (09:23→20:26)
[2021-05-08] MEDS: ENOXAPARIN INJ 30 MG/0.3 ML SYR SQ SCH ×2 (09:23→20:28)
[2021-05-08] MEDS: CARBIDOPA/LEVODOPA 25/100MG TAB PO SCH ×4 (09:23→20:27)
[2021-05-08] MEDS ORDERED: INSULIN ASPART PER UNIT ONE (09:36)
[2021-05-08] MEDS: INSULIN GLARGINE SOLOSTAR 100 UNITS/ML 3 ML PEN SC SCH (09:38)
[2021-05-08] MEDS: INSULIN ASPART 100 UNITS/ML 3 ML PEN SC SCH ×2 (09:38→13:43)
[2021-05-08] MEDS: ZINC SULFATE 220 MG CAPSULE PO SCH (10:08)
[2021-05-08] MEDS: CEROVITE ADV FORMULA TAB PO SCH (10:09)
[2021-05-08] MEDS: ASCORBIC ACID 500 MG TAB PO SCH (10:09)
[2021-05-08] MEDS: THIAMINE HCL 100 MG TAB PO SCH ×2 (10:09→20:26)
--- NOTE | 2021-05-08 10:33 | Hospitalist Progress Note ---
Date of Service May 08, 2021 Assessment & Plan (1) Pneumonia due to COVID-19 virus: Plan: clinically resolved NC O2 weaned off 05/03/21 and stable in RA since s/p 10 day course of dexamethasone no symptoms at this time lung exam remains stable (2) Metabolic encephalopathy: Plan: suspect due to COVID encephalopathy, hospital psychosis, UTI, etc. trialed risperdal 0.25mg last night - has helped, and has tolerated the med MRI brain without acute or subacute CVA; no ICH, tumor, etc. will cont risperdal - consider slight increase as needed recent b12/tsh wnl spoke with pt's daughter - she states that several months ago the patient was a/o x 3 and living independently (3) UTI (urinary tract infection): Plan: E coli course of Levaquin completed (4) Dysphagia: Plan: pureed diet no issues per staff (5) Hypernatremia: Plan: resolved (6) Hypokalemia: Plan: resolved (7) Diabetes: Plan: lability improving with adjustments in lantus + novolog given her body habitus she is likely a type 1 diabetic will be prone to lability but again her BSGs are stable (8) Rhabdomyolysis: Plan: found on floor at her home likely cause of rhabdo COVID can also cause rhabdo either way - resolved (9) Parkinsons disease: Plan: Continue with Carbidopa-Levadopa per home dosing does she have underlying dementia from PD?? finally spoke with pt's daughter -- she reports that as of a few months ago her cognition was intact current mental status/ behavior is very unusual for her per the daughter MRI brain neg for acute findings risperdal low dose 0.25mg HS - has helped delirium - continue (10) HLD (hyperlipidemia): (11) Pressure injury of back, stage 2: Plan: Present on admission secondary to patient being found down at home [employer], frequent turning, etc there is now eschar forming - wound care saw, narda's added once daily cont MVI/vit C/zinc/thiamine (12) Chronic kidney disease, stage 3a: Plan: baseline CrCl 50s stable (13) Urinary retention: Plan: 2nd to UTI? s/p reyes reinsertion 05/04/21 spontaneous voiding trial perhaps in 1 week Plan: will need rehab post-d/c cont PT/OT case management helping with post-d/c disposition updated pt's daughter again today - discussed MRI results, risperdal, less confusion w/ such, etc d/c precautions today - can tx to regular floor without COVID precautions daughter aware Admission and Anticipated Discharge Date Admission Date: April 18, 2021 Subjective patient had good night took the risperdal no excess sedation from this tolerated MRI brain during the visit she was calm, cooperative, cheerful she knew she was in the hospital - first time this week she could tell me that she remembered that Katrin is her daughter and that she has 3 kids in total was able to tell me what type of work she did at [employer] - earlier this week she couldn't tell me that eating fair/good per staff no issues per staff Review of Systems Review of Systems: gen - denies weakness cv - no cp GI - no abd pain pulm - no cough Physical Exam Physical Exam: gen - thin, frail, tremor of facial muscles from parkinson's - unchanged; pleasant confusion as previous; looks good today mouth - MMM neck - no JVD heart - RRR, s1 s2, 1/6 MADELINE LSB lungs - minimal rales bases (dry) - primarily the right base, slightly the left abd - soft NT ND BS+ ext - no edema, pulses 2+ b/l neuro - tremor of facial muscles, mild tremor of arms - unchanged Results & Data Results & Data ([facility]) Vital Signs (Past 12 Hours) Vital Signs Temp Pulse Resp BP Pulse Ox 05/08/21 07:14 36.9 C 73 16 110/69 97 Laboratory Results MRI brain - no acute or subacute CVA PG Care Time/CCT Total # of Minutes Spent Total Time Spent with Patient: Total time spent is greater than 50% in coordination of care (as documented) at patient's floor/unit and/or counseling patient: Coding Level of Care Code 53001 Subseq Hosp Care Lvl 2 Diagnoses Pneumonia due to COVID-19 virus U07.1; J12.82 Metabolic encephalopathy G93.41 UTI (urinary tract infection) N39.0 Dysphagia R13.10 Hypernatremia E87.0 Hypokalemia E87.6 Diabetes E11.9 Rhabdomyolysis M62.82 Parkinsons disease G20 HLD (hyperlipidemia) E78.5 Pressure injury of back, stage 2 L89.102 Chronic kidney disease, stage 3a N18.31 Urinary retention R33.9
[2021-05-08] MEDS: COLLAGENASE OINT 30 GM TUBE EXT SCH (16:57)
[2021-05-08] MEDS: INSULIN ASPART PER UNIT SC SCH ×2 (18:21→20:37)
[2021-05-08] MEDS: risperiDONE ODT 0.5 MG SOLTAB PO SCH (20:27)
[2021-05-09] MEDS: CYANOCOBALAMIN (VITAMIN B-12) 2,500 MCG TAB.SUBL SL SCH (08:56)
[2021-05-09] MEDS: CARBIDOPA/LEVODOPA 25/100MG TAB PO SCH ×4 (08:56→21:36)
[2021-05-09] MEDS: PYRIDOXINE HCL 50 MG TAB PO SCH ×2 (08:56→21:36)
[2021-05-09] MEDS: ZINC SULFATE 220 MG CAPSULE PO SCH (08:57)
[2021-05-09] MEDS: CHOLECALCIFEROL 1,000 UNITS 25 MCG TAB PO SCH ×2 (08:57→21:36)
[2021-05-09] MEDS: COLLAGENASE OINT 30 GM TUBE EXT SCH (08:57)
[2021-05-09] MEDS: THIAMINE HCL 100 MG TAB PO SCH ×2 (08:57→21:36)
[2021-05-09] MEDS: NYSTATIN SUSP 500,000 U/5 ML UDC PO SCH ×4 (08:57→21:36)
[2021-05-09] MEDS: CEROVITE ADV FORMULA TAB PO SCH (08:57)
[2021-05-09] MEDS: ASCORBIC ACID 500 MG TAB PO SCH (08:57)
[2021-05-09] MEDS: INSULIN GLARGINE SOLOSTAR 100 UNITS/ML 3 ML PEN SC SCH (08:57)
[2021-05-09] MEDS: ENOXAPARIN INJ 30 MG/0.3 ML SYR SQ SCH ×2 (08:58→21:36)
[2021-05-09] MEDS: INSULIN ASPART PER UNIT SC SCH ×4 (09:00→21:37)
[2021-05-09] MEDS: risperiDONE ODT 0.5 MG SOLTAB PO SCH (21:36)
--- NOTE | 2021-05-09 22:43 | Hospitalist Progress Note ---
Date of Service May 09, 2021 Assessment & Plan (1) Pneumonia due to COVID-19 virus: Plan: clinically resolved NC O2 weaned off 05/03/21 and stable in RA since s/p 10 day course of dexamethasone no symptoms at this time lung exam remains stable (2) Metabolic encephalopathy: Plan: suspect due to COVID encephalopathy, hospital psychosis, UTI, etc. trialed risperdal 0.25mg this week - has helped, and has tolerated the med MRI brain without acute or subacute CVA; no ICH, tumor, etc. will cont risperdal - consider slight increase to 0.5mg, if needed recent b12/tsh wnl spoke with pt's daughter - she states that several months ago the patient was a/o x 3 and living independently she is receiving empiric thiamine 200mg BID would do so for 1 month (3) Parkinsons disease: Plan: Continue with Carbidopa-Levadopa per home dosing does she have underlying dementia from PD?? finally spoke with pt's daughter -- she reports that as of a few months ago her cognition was intact see above MRI brain neg for acute findings risperdal low dose 0.25mg HS - has helped delirium - continue (4) UTI (urinary tract infection): Plan: E coli course of Levaquin completed (5) Dysphagia: Plan: pureed diet no issues per staff (6) Hypernatremia: Plan: resolved (7) Hypokalemia: Plan: resolved (8) Diabetes: Plan: control is very good at this time will lower lantus to 5 units as bsgs have trended lower this week novolog - slight adjustment today as well (9) Rhabdomyolysis: Plan: found on floor at her home likely cause of rhabdo COVID can also cause rhabdo either way - resolved (10) HLD (hyperlipidemia): (11) Pressure injury of back, stage 2: Plan: Present on admission secondary to patient being found down at home [employer], frequent turning, etc there is now eschar forming - wound care saw, narda's added once daily cont MVI/vit C/zinc/thiamine (12) Chronic kidney disease, stage 3a: Plan: baseline CrCl 50s stable (13) Urinary retention: Plan: 2nd to UTI? s/p reyes reinsertion 05/04/21 spontaneous voiding trial perhaps in 2-3 days Plan: will need rehab post-d/c case management helping with post-d/c disposition - multiple referrals out including to SNFs in the [place] area uncertain if any SNF vaccine requirements would apply to her given that she just is getting over COVID cont PT/OT updated pt's daughter again today by phone Admission and Anticipated Discharge Date Admission Date: April 18, 2021 Subjective no issues per staff overnight slept well easily directable poor appetite sitting in chair during the visit - pleasantly confused; but did remember her daughter's name which is Katrin, 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, knew she had 3 kids, etc per staff had bowel movement yesterday Review of Systems Review of Systems: cv - denied chest pain pulm - denied dyspnea GI - denied abd pain Physical Exam Physical Exam: gen - thin, frail, tremor of facial muscles from parkinson's - unchanged; pleasant confusion as previous; neck - no JVD heart - RRR, s1 s2, 1/6 MADELINE LSB lungs - scant dryl rales bases abd - soft NT ND BS+ ext - no edema, pulses 2+ b/l neuro - tremor of facial muscles, mild tremor of arms psych - a/o x 1 (person) Results & Data Results & Data ([facility]) Vital Signs (Past 12 Hours) Vital Signs Temp Pulse Resp BP Pulse Ox 05/09/21 14:14 36.9 C 87 12 109/70 95 Laboratory Results Laboratory Results - last 24 hr 05/09/21 05/09/21 05/09/21 08:06 11:54 16:51 POC Glucose 125 H 164 H 107 H 05/09/21 20:46 POC Glucose 97 PG Care Time/CCT Total # of Minutes Spent Total Time Spent with Patient: Total time spent is greater than 50% in coordination of care (as documented) at patient's floor/unit and/or counseling patient: Coding Level of Care Code 06485 Subseq Hosp Care Lvl 2 Diagnoses Pneumonia due to COVID-19 virus U07.1; J12.82 Metabolic encephalopathy G93.41 UTI (urinary tract infection) N39.0 Dysphagia R13.10 Hypernatremia E87.0 Hypokalemia E87.6 Diabetes E11.9 Rhabdomyolysis M62.82 Parkinsons disease G20 HLD (hyperlipidemia) E78.5 Pressure injury of back, stage 2 L89.102 Chronic kidney disease, stage 3a N18.31 Urinary retention R33.9
[2021-05-10 07:20] LABS: Hematocrit (blood only) 35.2 % (37-47); Hemoglobin 11.1 g/dL (12.0-16.0); Mean Corpuscular Hemoglobin 29.1 pg (25-34); Mean Corpuscular Hgb Conc 31.5 g/dL (32-36); Mean Corpuscular Volume 92.1 fL (80-100); Mean Platelet Volume 10.4 fL (7.4-10.4); Platelet Count 194 K/uL (130-400); RDW Coefficient of Variation 14.7 % (11.5-14.5); RDW Standard Deviation 49.5 fL (36.4-46.3); Red Blood Count 3.82 M/uL (4.2-5.4); White Blood Count 4.71 K/uL (4.8-10.8)
[2021-05-10 07:50] LABS: BUN Creatinine Ratio 29.6 (10-20); Calcium 8.9 mg/dl (8.5-10.1); Creatinine Clr Calc Pharmacy 54.2 ml/min; Est GFR (African American) 85.7 ml/min; Potassium 4.3 mmol/L (3.5-5.1)
[2021-05-10] MEDS: CEROVITE ADV FORMULA TAB PO SCH (07:56)
[2021-05-10] MEDS: ZINC SULFATE 220 MG CAPSULE PO SCH (07:56)
[2021-05-10] MEDS: ASCORBIC ACID 500 MG TAB PO SCH (07:56)
[2021-05-10] MEDS: THIAMINE HCL 100 MG TAB PO SCH ×2 (07:57→20:10)
[2021-05-10] MEDS: CARBIDOPA/LEVODOPA 25/100MG TAB PO SCH ×4 (07:57→20:10)
[2021-05-10] MEDS: CHOLECALCIFEROL 1,000 UNITS 25 MCG TAB PO SCH ×2 (07:57→20:11)
[2021-05-10] MEDS: PYRIDOXINE HCL 50 MG TAB PO SCH ×2 (07:57→20:10)
[2021-05-10] MEDS: CYANOCOBALAMIN (VITAMIN B-12) 2,500 MCG TAB.SUBL SL SCH (07:58)
[2021-05-10] MEDS: NYSTATIN SUSP 500,000 U/5 ML UDC PO SCH ×4 (07:58→20:10)
[2021-05-10] MEDS: COLLAGENASE OINT 30 GM TUBE EXT SCH (07:58)
[2021-05-10] MEDS: ENOXAPARIN INJ 30 MG/0.3 ML SYR SQ SCH ×2 (07:59→20:11)
--- NOTE | 2021-05-10 08:31 | Hospitalist Progress Note ---
Date of Service May 10, 2021 Assessment & Plan (1) Pneumonia due to COVID-19 virus: Plan: clinically resolved NC O2 weaned off 05/03/21 and stable in RA since s/p 10 day course of dexamethasone no symptoms at this time lung exam remains stable (2) Metabolic encephalopathy: Plan: suspect due to COVID encephalopathy, hospital psychosis, UTI, etc. trialed Risperdal 0.25mg this week - has helped, and has tolerated the med MRI brain without acute or subacute CVA; no ICH, tumor, etc. will cont Risperdal (effective at 0.25mg dose but could consider slight increase to 0.5mg, if needed) recent b12/tsh wnl previous provider spoke with pt's daughter - she states that several months ago the patient was a/o x 3 and living independently she is receiving empiric thiamine 200mg BID --> would do so for 1 month remains stable at this time (3) Parkinsons disease: Plan: Continue with Carbidopa-Levadopa per home dosing does she have underlying dementia from PD?? finally spoke with pt's daughter -- she reports that as of a few months ago her cognition was intact see above MRI brain neg for acute findings risperdal low dose 0.25mg HS - has helped delirium - continue (4) UTI (urinary tract infection): Plan: E coli course of Levaquin completed (5) Dysphagia: Plan: pureed diet no issues per staff (6) Hypernatremia: Plan: resolved (7) Hypokalemia: Plan: resolved (8) Diabetes: Plan: control is very good at this time will lower lantus to 5 units as bsgs have trended lower this week novolog - slight adjustment today as well (9) Rhabdomyolysis: Plan: found on floor at her home likely cause of rhabdo COVID can also cause rhabdo either way - resolved (10) HLD (hyperlipidemia): (11) Pressure injury of back, stage 2: Plan: Present on admission secondary to patient being found down at home [employer], frequent turning, etc there is now eschar forming - wound care saw, santyl's added once daily cont MVI/vit C/zinc/thiamine waffle cushion for comfort, pain control ordered (12) Chronic kidney disease, stage 3a: Plan: baseline CrCl 50s stable (13) Urinary retention: Plan: 2nd to UTI? s/p reyes reinsertion 05/04/21 spontaneous voiding trial perhaps in 2-3 days Plan: will need rehab post-d/c case management helping with post-d/c disposition - multiple referrals out including to SNFs in the [place] area uncertain if any SNF vaccine requirements would apply to her given that she just is getting over COVID cont PT/OT --> updated pt's daughter again 05/09 by phone Admission and Anticipated Discharge Date Admission Date: April 18, 2021 Subjective patient evaluated around lunch sitting up in bed eating pureed diet. states she feels like a "scrooge" and when asked she states because of the soreness to her behind when sitting in bed depending on position. pain to her bottom side where she has two small pustules, not-popped and appear like pimples. Asked RN to provide waffle cushion for comfort. Just got something for pain and states it is improving but to alert Jimena if continued over the next hour for additional measures to be undertaken. No other issues reported per RN. No fever, chills, chest pain, shortness of breath, abdominal pain nausea or vomiting. Review of Systems Review of Systems: All systems reviewed & are unremarkable except as noted in HPI & below Physical Exam Physical Exam: gen - thin, frail, tremor of facial muscles from parkinson's - unchanged; pleasant confusion as previous but is alert to person; neck - no JVD heart - RRR, s1 s2, 1/6 MADELINE LSB , trace b/l edema lungs - scant b/l rales bases , on room air abd - soft NT ND BS+ ext - no edema, pulses 2+ b/l neuro - tremor of facial muscles, mild tremor of arms (stable) psych - a/o x 1 (person) Results & Data Results & Data ([facility]) Vital Signs (Past 12 Hours) Vital Signs Temp Pulse Resp BP Pulse Ox 05/10/21 07:39 36.9 C 74 16 107/71 91 05/09/21 23:20 36.9 C 76 16 94/60 L 94 Laboratory Results 05/10/21 05/10/21 05/10/21 Range/Units 07:55 06:49 06:49 WBC 4.71 L (4.8-10.8) K/uL RBC 3.82 L (4.2-5.4) M/uL Hgb 11.1 L (12.0-16.0) g/dL Hct 35.2 L (37-47) % MCV 92.1 (80-100) fL MCH 29.1 (25-34) pg MCHC 31.5 L (32-36) g/dL RDW Std Deviation 49.5 H (36.4-46.3) fL RDW Coeff of Ilan 14.7 H (11.5-14.5) % Plt Count 194 (130-400) K/uL MPV 10.4 (7.4-10.4) fL Sodium 141 (136-145) mmol/L Potassium 4.3 (3.5-5.1) mmol/L Chloride 108 H (98-107) mmol/L Carbon Dioxide 28 (21-32) mmol/L Anion Gap 5.0 (3-11) BUN 23 H (7-18) mg/dl Creatinine 0.77 (0.6-1.2) mg/dl Est Cr Clr Drug Dosing 54.2 ml/min Est GFR ( Amer) 85.7 ml/min Est GFR (Non-Af Amer) 74.0 ml/min BUN/Creatinine Ratio 29.6 H (10-20) Glucose 125 H (70-99) mg/dl POC Glucose 130 H (70-99) mg/dl Calcium 8.9 (8.5-10.1) mg/dl 05/09/21 05/09/21 05/09/21 Range/Units 20:46 16:51 11:54 WBC (4.8-10.8) K/uL RBC (4.2-5.4) M/uL Hgb (12.0-16.0) g/dL Hct (37-47) % MCV (80-100) fL MCH (25-34) pg MCHC (32-36) g/dL RDW Std Deviation (36.4-46.3) fL RDW Coeff of Ilan (11.5-14.5) % Plt Count (130-400) K/uL MPV (7.4-10.4) fL Sodium (136-145) mmol/L Potassium (3.5-5.1) mmol/L Chloride (98-107) mmol/L Carbon Dioxide (21-32) mmol/L Anion Gap (3-11) BUN (7-18) mg/dl Creatinine (0.6-1.2) mg/dl Est Cr Clr Drug Dosing ml/min Est GFR ( Amer) ml/min Est GFR (Non-Af Amer) ml/min BUN/Creatinine Ratio (10-20) Glucose (70-99) mg/dl POC Glucose 97 107 H 164 H (70-99) mg/dl Calcium (8.5-10.1) mg/dl PG Care Time/CCT Total # of Minutes Spent Total Time Spent with Patient: Total time spent is greater than 50% in coordination of care (as documented) at patient's floor/unit and/or counseling patient: Coding Level of Care Code 26919 Subseq Hosp Care Lvl 2 Diagnoses Pneumonia due to COVID-19 virus U07.1; J12.82 Metabolic encephalopathy G93.41 Parkinsons disease G20 UTI (urinary tract infection) N39.0 Dysphagia R13.10 Hypernatremia E87.0 Hypokalemia E87.6 Diabetes E11.9 Rhabdomyolysis M62.82 HLD (hyperlipidemia) E78.5 Pressure injury of back, stage 2 L89.102 Chronic kidney disease, stage 3a N18.31 Urinary retention R33.9
[2021-05-10] MEDS: INSULIN GLARGINE SOLOSTAR 100 UNITS/ML 3 ML PEN SC SCH (08:36)
[2021-05-10] MEDS: INSULIN ASPART PER UNIT SC SCH ×4 (08:37→21:05)
[2021-05-10 10:54] LABS: Ferritin 142.4 ng/ml (8-388)
[2021-05-10] MEDS: ACETAMINOPHEN 325 MG TAB PO PRN (12:20)
[2021-05-10] MEDS: risperiDONE ODT 0.5 MG SOLTAB PO SCH (20:10)
[2021-05-11 06:22] LABS: Eosinophils # (auto) 0.04 K/uL (0-0.5); Eosinophils % (auto) 0.8 %; Hematocrit (blood only) 35.8 % (37-47); Hemoglobin 11.2 g/dL (12.0-16.0); Immature Granulocytes # (auto) 0.01 K/uL (0.00-0.02); Immature Granulocytes % (auto) 0.2 %; Lymphocytes # (auto) 1.09 K/uL (1.2-3.4); Lymphocytes % (auto) 23.1 %; Mean Corpuscular Hemoglobin 29.2 pg (25-34); Mean Corpuscular Hgb Conc 31.3 g/dL (32-36); Mean Corpuscular Volume 93.2 fL (80-100); Mean Platelet Volume 9.9 fL (7.4-10.4); Monocytes # (auto) 0.35 K/uL (0.11-0.59); Monocytes % (auto) 7.4 %; Neutrophils # (auto) 3.22 K/uL (1.4-6.5); Neutrophils % (auto) 68.5 %; Platelet Count 190 K/uL (130-400); RDW Coefficient of Variation 14.8 % (11.5-14.5); Red Blood Count 3.84 M/uL (4.2-5.4); White Blood Count 4.71 K/uL (4.8-10.8)
[2021-05-11 06:50] LABS: BUN Creatinine Ratio 28.5 (10-20); Creatinine Clr Calc Pharmacy 48.5 ml/min; Est GFR (Non-African American) 64.7 ml/min; Potassium 4.1 mmol/L (3.5-5.1)
[2021-05-11] MEDS: CEROVITE ADV FORMULA TAB PO SCH (08:05)
[2021-05-11] MEDS: CARBIDOPA/LEVODOPA 25/100MG TAB PO SCH ×4 (08:05→19:33)
[2021-05-11] MEDS: PYRIDOXINE HCL 50 MG TAB PO SCH ×2 (08:06→19:32)
[2021-05-11] MEDS: ENOXAPARIN INJ 30 MG/0.3 ML SYR SQ SCH ×2 (08:06→19:30)
[2021-05-11] MEDS: ASCORBIC ACID 500 MG TAB PO SCH (08:07)
[2021-05-11] MEDS: ZINC SULFATE 220 MG CAPSULE PO SCH ×2 (08:07→19:31)
[2021-05-11] MEDS: THIAMINE HCL 100 MG TAB PO SCH ×2 (08:07→19:32)
[2021-05-11] MEDS: CHOLECALCIFEROL 1,000 UNITS 25 MCG TAB PO SCH ×2 (08:07→19:31)
[2021-05-11] MEDS: COLLAGENASE OINT 30 GM TUBE EXT SCH (08:08)
[2021-05-11] MEDS: NYSTATIN SUSP 500,000 U/5 ML UDC PO SCH ×4 (08:09→19:31)
[2021-05-11] MEDS: CYANOCOBALAMIN (VITAMIN B-12) 2,500 MCG TAB.SUBL SL SCH ×2 (08:09→19:31)
--- NOTE | 2021-05-11 08:18 | Hospitalist Progress Note ---
Date of Service May 11, 2021 Assessment & Plan (1) Pneumonia due to COVID-19 virus: Plan: clinically resolved NC O2 weaned off 05/03/21 and stable in RA since s/p 10 day course of dexamethasone no symptoms at this time lung exam remains stable, 98% on RA (2) Metabolic encephalopathy: Plan: suspect due to COVID encephalopathy, hospital psychosis, UTI, etc. trialed Risperdal 0.25mg this week - has helped, and has tolerated the med MRI brain without acute or subacute CVA; no ICH, tumor, etc. will cont Risperdal (effective at 0.25mg dose but could consider slight increase to 0.5mg, if needed) recent b12/tsh wnl previous provider spoke with pt's daughter - she states that several months ago the patient was a/o x 3 and living independently she is receiving empiric thiamine 200mg BID --> would do so for 1 month remains stable at this time (3) Parkinsons disease: Plan: Continue with Carbidopa-Levadopa per home dosing does she have underlying dementia from PD?? finally spoke with pt's daughter -- she reports that as of a few months ago her cognition was intact see above MRI brain neg for acute findings risperdal low dose 0.25mg HS - has helped delirium - continue (4) UTI (urinary tract infection): Plan: E coli course of Levaquin completed (5) Dysphagia: Plan: pureed diet no issues per staff (6) Hypernatremia: Plan: resolved (7) Hypokalemia: Plan: resolved (8) Diabetes: Plan: control is very good at this time will lower lantus to 5 units as bsgs have trended lower this week continue novolog as ordered BSGs 130-150s, acceptable and continue current regimen (9) Rhabdomyolysis: Plan: found on floor at her home likely cause of rhabdo COVID can also cause rhabdo either way - resolved (10) HLD (hyperlipidemia): (11) Pressure injury of back, stage 2: Plan: Present on admission secondary to patient being found down at home [employer]if[employer], frequent turning, etc there is now eschar forming - wound care saw, santyl's added once daily cont MVI/vit C/zinc/thiamine waffle cushion for comfort, pain control ordered --> reports improvement in discomfort and no need for medication (12) Chronic kidney disease, stage 3a: Plan: baseline CrCl 50s stable (13) Urinary retention: Plan: 2nd to UTI? s/p reyes reinsertion 05/04/21 spontaneous voiding trial perhaps tomorrow? Plan: will need rehab post-d/c case management helping with post-d/c disposition - multiple referrals out including to SNFs in the [place] area uncertain if any SNF vaccine requirements would apply to her given that she just is getting over COVID cont PT/OT --> updated pt's daughter again 05/09 by phone who visited with patient at beds trupti 05/10 Admission and Anticipated Discharge Date Admission Date: April 18, 2021 Supervising Physician Co-Signing Physician Notes reviewed and agree jesse Knapp PAC - as above Subjective Patient herself looks much better than in days past. More energy. patient evaluated this morning, sitting upright in bed. feeling much better today, pain to bottom improved and instructed to ask for tylenol if recurs. Eating/drinking pureed diet no issue. Working with therapy and believes plan for rehab and eventual return home. No fever, chills, chest pain, shortness of breath, abdominal pain, nausea or vo miting at this time. Review of Systems Review of Systems: All systems reviewed & are unremarkable except as noted in HPI & below Physical Exam Physical Exam: gen - thin, frail, tremor of facial muscles from parkinson's - unchanged; pleasant confusion as previous but is alert to person; knows in hospital neck - no JVD heart - RRR, s1 s2, 1/6 MADELINE LSB , trace b/l edema lungs - scant b/l rales bases , on room air abd - soft NT ND BS+ ext - no edema, pulses 2+ b/l neuro - tremor of facial muscles, mild tremor of arms (stable) psych - a/o x 1, occasionally place Results & Data Results & Data ([facility]) Vital Signs (Past 12 Hours) Vital Signs Temp Pulse Resp BP Pulse Ox 05/11/21 07:45 36.7 C 74 18 100/63 98 05/10/21 20:52 36.7 C 75 18 101/65 96 Laboratory Results 05/11/21 05/11/21 05/11/21 Range/Units 07:52 06:09 06:09 WBC 4.71 L (4.8-10.8) K/uL RBC 3.84 L (4.2-5.4) M/uL Hgb 11.2 L (12.0-16.0) g/dL Hct 35.8 L (37-47) % MCV 93.2 (80-100) fL MCH 29.2 (25-34) pg MCHC 31.3 L (32-36) g/dL RDW Std Deviation 50.0 H (36.4-46.3) fL RDW Coeff of Ilan 14.8 H (11.5-14.5) % Plt Count 190 (130-400) K/uL MPV 9.9 (7.4-10.4) fL Immature Gran % (Auto) 0.2 % Neut % (Auto) 68.5 % Lymph % (Auto) 23.1 % [place] % (Auto) 7.4 % Eos % (Auto) 0.8 % Baso % (Auto) 0.0 % Neut # (Auto) 3.22 (1.4-6.5) K/uL Lymph # (Auto) 1.09 L (1.2-3.4) K/uL [place] # (Auto) 0.35 (0.11-0.59) K/uL Eos # (Auto) 0.04 (0-0.5) K/uL Baso # (Auto) 0.00 (0-0.2) K/uL Immature Gran # (Auto) 0.01 (0.00-0.02) K/uL Sodium 140 (136-145) mmol/L Potassium 4.1 (3.5-5.1) mmol/L Chloride 108 H (98-107) mmol/L Carbon Dioxide 28 (21-32) mmol/L Anion Gap 4.0 (3-11) BUN 24 H (7-18) mg/dl Creatinine 0.86 (0.6-1.2) mg/dl Est Cr Clr Drug Dosing 48.5 ml/min Est GFR ( Amer) 75.0 ml/min Est GFR (Non-Af Amer) 64.7 ml/min BUN/Creatinine Ratio 28.5 H (10-20) Glucose 151 H (70-99) mg/dl POC Glucose 154 H (70-99) mg/dl Calcium 9.0 (8.5-10.1) mg/dl Iron (35-150) mcg/dl TIBC (250-450) mcg/dl Transferrin (200-360) mg/dl Transferrin % Sat (15-50) % Ferritin (8-388) ng/ml 05/10/21 05/10/21 05/10/21 Range/Units 20:42 17:08 12:03 WBC (4.8-10.8) K/uL RBC (4.2-5.4) M/uL Hgb (12.0-16.0) g/dL Hct (37-47) % MCV (80-100) fL MCH (25-34) pg MCHC (32-36) g/dL RDW Std Deviation (36.4-46.3) fL RDW Coeff of Ilan (11.5-14.5) % Plt Count (130-400) K/uL MPV (7.4-10.4) fL Immature Gran % (Auto) % Neut % (Auto) % Lymph % (Auto) % [place] % (Auto) % Eos % (Auto) % Baso % (Auto) % Neut # (Auto) (1.4-6.5) K/uL Lymph # (Auto) (1.2-3.4) K/uL [place] # (Auto) (0.11-0.59) K/uL Eos # (Auto) (0-0.5) K/uL Baso # (Auto) (0-0.2) K/uL Immature Gran # (Auto) (0.00-0.02) K/uL Sodium (136-145) mmol/L Potassium (3.5-5.1) mmol/L Chloride (98-107) mmol/L Carbon Dioxide (21-32) mmol/L Anion Gap (3-11) BUN (7-18) mg/dl Creatinine (0.6-1.2) mg/dl Est Cr Clr Drug Dosing ml/min Est GFR ( Amer) ml/min Est GFR (Non-Af Amer) ml/min BUN/Creatinine Ratio (10-20) Glucose (70-99) mg/dl POC Glucose 156 H 115 H 153 H (70-99) mg/dl Calcium (8.5-10.1) mg/dl Iron (35-150) mcg/dl TIBC (250-450) mcg/dl Transferrin (200-360) mg/dl Transferrin % Sat (15-50) % Ferritin (8-388) ng/ml 05/10/ Range/Units 10:12 WBC (4.8-10.8) K/uL RBC (4.2-5.4) M/uL Hgb (12.0-16.0) g/dL Hct (37-47) % MCV (80-100) fL MCH (25-34) pg MCHC (32-36) g/dL RDW Std Deviation (36.4-46.3) fL RDW Coeff of Ilan (11.5-14.5) % Plt Count (130-400) K/uL MPV (7.4-10.4) fL Immature Gran % (Auto) % Neut % (Auto) % Lymph % (Auto) % [place] % (Auto) % Eos % (Auto) % Baso % (Auto) % Neut # (Auto) (1.4-6.5) K/uL Lymph # (Auto) (1.2-3.4) K/uL [place] # (Auto) (0.11-0.59) K/uL Eos # (Auto) (0-0.5) K/uL Baso # (Auto) (0-0.2) K/uL Immature Gran # (Auto) (0.00-0.02) K/uL Sodium (136-145) mmol/L Potassium (3.5-5.1) mmol/L Chloride (98-107) mmol/L Carbon Dioxide (21-32) mmol/L Anion Gap (3-11) BUN (7-18) mg/dl Creatinine (0.6-1.2) mg/dl Est Cr Clr Drug Dosing ml/min Est GFR ( Amer) ml/min Est GFR (Non-Af Amer) ml/min BUN/Creatinine Ratio (10-20) Glucose (70-99) mg/dl POC Glucose (70-99) mg/dl Calcium (8.5-10.1) mg/dl Iron 50 (35-150) mcg/dl TIBC 251 (250-450) mcg/dl Transferrin 221 (200-360) mg/dl Transferrin % Sat 16 (15-50) % Ferritin 142.4 (8-388) ng/ml PG Care Time/CCT Total # of Minutes Spent Total Time Spent with Patient: Total time spent is greater than 50% in coordination of care (as documented) at patient's floor/unit and/or counseling patient: Coding Level of Care Code 01047 Subseq Hosp Care Lvl 2 Diagnoses Pneumonia due to COVID-19 virus U07.1; J12.82 Metabolic encephalopathy G93.41 Parkinsons disease G20 UTI (urinary tract infection) N39.0 Dysphagia R13.10 Hypernatremia E87.0 Hypokalemia E87.6 Diabetes E11.9 Rhabdomyolysis M62.82 HLD (hyperlipidemia) E78.5 Pressure injury of back, stage 2 L89.102 Chronic kidney disease, stage 3a N18.31 Urinary retention R33.9
[2021-05-11] MEDS: INSULIN GLARGINE SOLOSTAR 100 UNITS/ML 3 ML PEN SC SCH (09:02)
[2021-05-11] MEDS: INSULIN ASPART PER UNIT SC SCH ×4 (09:04→20:55)
[2021-05-11] MEDS: ACETAMINOPHEN 325 MG TAB PO PRN (15:06)
[2021-05-11] MEDS: risperiDONE ODT 0.5 MG SOLTAB PO SCH (19:32)
[2021-05-12 08:01] LABS: Hematocrit (blood only) 36.7 % (37-47); Hemoglobin 11.8 g/dL (12.0-16.0); Mean Corpuscular Hemoglobin 29.7 pg (25-34); Mean Corpuscular Hgb Conc 32.2 g/dL (32-36); Mean Corpuscular Volume 92.4 fL (80-100); Mean Platelet Volume 10.4 fL (7.4-10.4); Platelet Count 212 K/uL (130-400); RDW Coefficient of Variation 14.6 % (11.5-14.5); RDW Standard Deviation 49.3 fL (36.4-46.3); Red Blood Count 3.97 M/uL (4.2-5.4); White Blood Count 5.58 K/uL (4.8-10.8)
[2021-05-12] MEDS: NYSTATIN SUSP 500,000 U/5 ML UDC PO SCH ×4 (08:07→21:31)
[2021-05-12] MEDS: ENOXAPARIN INJ 30 MG/0.3 ML SYR SQ SCH ×2 (08:08→21:32)
[2021-05-12] MEDS: PYRIDOXINE HCL 50 MG TAB PO SCH ×2 (08:08→21:32)
[2021-05-12] MEDS: COLLAGENASE OINT 30 GM TUBE EXT SCH (08:08)
[2021-05-12] MEDS: CARBIDOPA/LEVODOPA 25/100MG TAB PO SCH ×4 (08:09→21:31)
[2021-05-12] MEDS: CHOLECALCIFEROL 1,000 UNITS 25 MCG TAB PO SCH ×2 (08:09→21:32)
[2021-05-12] MEDS: ASCORBIC ACID 500 MG TAB PO SCH (08:09)
[2021-05-12] MEDS: CEROVITE ADV FORMULA TAB PO SCH (08:10)
[2021-05-12] MEDS: THIAMINE HCL 100 MG TAB PO SCH ×2 (08:10→21:33)
[2021-05-12 08:28] LABS: BUN Creatinine Ratio 21.9 (10-20); Calcium 9.1 mg/dl (8.5-10.1); Creatinine Clr Calc Pharmacy 53.5 ml/min; Est GFR (African American) 84.4 ml/min; Est GFR (Non-African American) 72.8 ml/min
[2021-05-12] MEDS: INSULIN ASPART PER UNIT SC SCH ×4 (10:06→21:51)
[2021-05-12] MEDS: INSULIN GLARGINE SOLOSTAR 100 UNITS/ML 3 ML PEN SC SCH (10:07)
--- NOTE | 2021-05-12 19:17 | Hospitalist Progress Note ---
Date of Service May 12, 2021 Assessment & Plan (1) Pneumonia due to COVID-19 virus: Plan: - clinically resolved - NC O2 weaned off 05/03/21 and stable in RA since - s/p 10 day course of dexamethasone - no symptoms at this time (2) Metabolic encephalopathy: Plan: - suspect due to COVID encephalopathy, hospital psychosis, UTI, etc. - trialed Risperdal 0.25mg this week - has helped, and has tolerated the med and discussed with daughter - will increase to 0.5 mg and monitor for any symptoms/drowsiness -- Still having some hallucination/delusions but daughter reports much better compared to last week MRI brain without acute or subacute CVA; no ICH, tumor, etc. recent b12/tsh wnl - updated daughter over the phone today - she states that several months ago the patient was a/o x 3 and living independently - she is receiving empiric thiamine 200mg BID --> would do so for 1 month - remains stable at this time (3) Parkinsons disease: Plan: -Continue with Carbidopa-Levadopa per home dosing --does she have underlying dementia from PD?? -MRI brain neg for acute findings -risperdal low dose 0.5mg HS - has helped delirium - continue (4) UTI (urinary tract infection): Plan: -E coli -course of Levaquin completed (5) Dysphagia: Plan: -pureed diet -no issues per staff (6) Hypernatremia: Plan: -resolved (7) Hypokalemia: Plan: -resolved (8) Diabetes: Plan: -control is very good at this time -lantus to 5 units and SSI (9) Rhabdomyolysis: Plan: -RESOLVED -found on floor at her home -- likely cause of rhabdo -COVID can also cause rhabdo (10) Pressure injury of back, stage 2: Plan: Present on admission secondary to patient being found down at home [employer], frequent turning, etc there is now eschar forming - wound care saw, narda's added once daily cont MVI/vit C/zinc/thiamine waffle cushion for comfort, pain control ordered --> reports improvement in discomfort and no need for medication (11) Chronic kidney disease, stage 3a: Plan: baseline CrCl 50s stable (12) Urinary retention: Plan: 2nd to UTI? s/p reyes reinsertion 05/04/21 - likely can perform trial of void tomorrow Plan: will need rehab post-d/c case management helping with post-d/c disposition - multiple referrals out including to SNFs in the [place] area uncertain if any SNF vaccine requirements would apply to her given that she just is getting over COVID cont PT/OT --> updated pt's daughter via phone on 05/12 Admission and Anticipated Discharge Date Admission Date: April 18, 2021 Subjective She reports no complaints today. She states her breathing feels well and no urinary symptoms. She did asked if I could help pack up her bed linens to load the car to take her home. However was easily redirected. Review of Systems Review of Systems: All systems reviewed & are unremarkable except as noted in Subjective Physical Exam Physical Exam: PHYSICAL EXAM General Appearance: WDWN in NAD who is A&O x person and place HEENT: Head is normocephalic/atraumatic; Hearing grossly intact; Mucous membranes moist Neck: Supple; Trachea midline; Neg JVD Heart: RRR with murmur Lungs: CTA in all lung grande bilaterally; Respirations unlabored; Neg accessory muscle use Abdomen: Soft, non-tender, non-distended; Positive BS x 4 quadrants Extremities: Neg cyanosis Neurological: Speech clear; tremor Psychiatric: Appropriate mood/affect Skin: Normal Color; Warm/Dry Results & Data Results & Data ([facility]) Vital Signs (Past 12 Hours) Vital Signs Temp Pulse Resp BP Pulse Ox 05/12/21 14:34 36.9 C 91 H 16 116/71 91 05/12/21 07:28 36.9 C 77 16 120/68 96 PG Care Time/CCT Total # of Minutes Spent Total Time Spent with Patient: Total time spent is greater than 50% in coordination of care (as documented) at patient's floor/unit and/or counseling patient: Coding Level of Care Code 18201 Subseq Obs Care Lvl 3 Diagnoses Pneumonia due to COVID-19 virus U07.1; J12.82 Metabolic encephalopathy G93.41 Parkinsons disease G20 UTI (urinary tract infection) N39.0 Dysphagia R13.10 Hypernatremia E87.0 Hypokalemia E87.6 Diabetes E11.9 Rhabdomyolysis M62.82 Pressure injury of back, stage 2 L89.102 Chronic kidney disease, stage 3a N18.31 Urinary retention R33.9
[2021-05-12] MEDS: risperiDONE ODT 0.5 MG SOLTAB PO SCH (21:31)
[2021-05-13] MEDS: CARBIDOPA/LEVODOPA 25/100MG TAB PO SCH ×4 (08:57→19:53)
[2021-05-13] MEDS: CEROVITE ADV FORMULA TAB PO SCH (08:57)
[2021-05-13] MEDS: CHOLECALCIFEROL 1,000 UNITS 25 MCG TAB PO SCH ×2 (08:57→19:54)
[2021-05-13] MEDS: ENOXAPARIN INJ 30 MG/0.3 ML SYR SQ SCH ×2 (08:58→19:54)
[2021-05-13] MEDS: PYRIDOXINE HCL 50 MG TAB PO SCH ×2 (08:58→19:53)
[2021-05-13] MEDS: ASCORBIC ACID 500 MG TAB PO SCH (08:58)
[2021-05-13] MEDS: CYANOCOBALAMIN (VITAMIN B-12) 2,500 MCG TAB.SUBL SL SCH (08:58)
[2021-05-13] MEDS: ZINC SULFATE 220 MG CAPSULE PO SCH (08:58)
[2021-05-13] MEDS: THIAMINE HCL 100 MG TAB PO SCH ×2 (08:59→19:53)
[2021-05-13] MEDS: COLLAGENASE OINT 30 GM TUBE EXT SCH (08:59)
[2021-05-13] MEDS: NYSTATIN SUSP 500,000 U/5 ML UDC PO SCH ×2 (08:59→12:48)
[2021-05-13] MEDS: INSULIN ASPART PER UNIT SC SCH ×4 (09:12→21:18)
[2021-05-13] MEDS: INSULIN GLARGINE SOLOSTAR 100 UNITS/ML 3 ML PEN SC SCH (09:13)
--- NOTE | 2021-05-13 13:28 | Hospitalist Progress Note ---
Date of Service May 13, 2021 Assessment & Plan (1) Pneumonia due to COVID-19 virus: Plan: - clinically resolved - NC O2 weaned off 05/03/21 and stable in RA since - s/p 10 day course of dexamethasone - no symptoms at this time (2) Metabolic encephalopathy: Plan: - suspect due to COVID encephalopathy, hospital psychosis, UTI, etc. - trialed Risperdal 0.25mg this week - has helped, and has tolerated the med and discussed with daughter - will increase to 0.5 mg and monitor for any symptoms/drowsiness -- Still having some hallucination/delusions but daughter reports much better compared to last week MRI brain without acute or subacute CVA; no ICH, tumor, etc. recent b12/tsh wnl - updated daughter over the phone - she states that several months ago the patient was a/o x 3 and living independently - she is receiving empiric thiamine 200mg BID --> would do so for 1 month - remains stable at this time (3) Parkinsons disease: Plan: -Continue with Carbidopa-Levadopa per home dosing --does she have underlying dementia from PD?? -MRI brain neg for acute findings -risperdal low dose 0.5mg HS - has helped delirium - continue (4) UTI (urinary tract infection): Plan: -E coli -course of Levaquin completed (5) Dysphagia: Plan: -pureed diet -no issues per staff (6) Hypernatremia: Plan: -resolved (7) Hypokalemia: Plan: -resolved (8) Diabetes: Plan: -control is very good at this time -lantus to 5 units and SSI (9) Rhabdomyolysis: Plan: -RESOLVED -found on floor at her home -- likely cause of rhabdo -COVID can also cause rhabdo (10) Pressure injury of back, stage 2: Plan: Present on admission secondary to patient being found down at home [employer], frequent turning, etc there is now eschar forming - wound care saw, paulayl's added once daily - will need outpatient F/U ([phone]) cont MVI/vit C/zinc/thiamine waffle cushion for comfort, pain control ordered --> reports improvement in discomfort and no need for medication (11) Chronic kidney disease, stage 3a: Plan: baseline CrCl 50s stable (12) Urinary retention: Plan: 2nd to UTI? s/p reyes reinsertion 05/04/21 - will keep today to try and prevent urine exposure to wound but will look at removing tomorrow to perform TOV Plan: will need rehab post-d/c case management helping with post-d/c disposition - multiple referrals out including to SNFs in the [place] area uncertain if any SNF vaccine requirements would apply to her given that she just is getting over COVID cont PT/OT --> updated pt's daughter via phone on 05/12 Admission and Anticipated Discharge Date Admission Date: April 18, 2021 Subjective Reports feeling well. States she slept like a log and feels very rested however nursing staff states she was up most of the night. She verbalizes no complaints. She remains on RA and denies shortness of breath. She does get more confused as the afternoon goes on but can easily redirect her. Seems to focus on needing to load up the car with the bed linens. Given that she had very minimal sleep last night this may be contributing to some confusion today. Review of Systems Review of Systems: All systems reviewed & are unremarkable except as noted in Subjective Physical Exam Physical Exam: PHYSICAL EXAM General Appearance: WDWN in NAD who is A&O x person and place but gets more confused in the afternoon HEENT: Head is normocephalic/atraumatic; Hearing grossly intact; Mucous membranes moist Neck: Supple; Trachea midline; Neg JVD Heart: RRR with murmur Lungs: CTA in all lung grande bilaterally; Respirations unlabored; Neg accessory muscle use Abdomen: Soft, non-tender, non-distended; Positive BS x 4 quadrants Extremities: Neg cyanosis Neurological: Speech clear; tremor Psychiatric: Appropriate mood/affect Skin: Normal Color; Warm/Dry Results & Data Results & Data ([facility]) Vital Signs (Past 12 Hours) Vital Signs Temp Pulse Resp BP Pulse Ox 05/13/21 07:39 36.7 C 86 16 136/74 97 PG Care Time/CCT Total # of Minutes Spent Total Time Spent with Patient: Total time spent is greater than 50% in coordination of care (as documented) at patient's floor/unit and/or counseling patient: Coding Level of Care Code 99969 Subseq Obs Care Lvl 3 Diagnoses Pneumonia due to COVID-19 virus U07.1; J12.82 Metabolic encephalopathy G93.41 Parkinsons disease G20 UTI (urinary tract infection) N39.0 Dysphagia R13.10 Hypernatremia E87.0 Hypokalemia E87.6 Diabetes E11.9 Rhabdomyolysis M62.82 Pressure injury of back, stage 2 L89.102 Chronic kidney disease, stage 3a N18.31 Urinary retention R33.9
[2021-05-13] MEDS: risperiDONE ODT 0.5 MG SOLTAB PO SCH (19:54)
[2021-05-14] MEDS: THIAMINE HCL 100 MG TAB PO SCH ×2 (08:30→20:08)
[2021-05-14] MEDS: ASCORBIC ACID 500 MG TAB PO SCH (08:30)
[2021-05-14] MEDS: CARBIDOPA/LEVODOPA 25/100MG TAB PO SCH ×4 (08:32→20:07)
[2021-05-14] MEDS: PYRIDOXINE HCL 50 MG TAB PO SCH ×2 (08:32→20:07)
[2021-05-14] MEDS: CEROVITE ADV FORMULA TAB PO SCH (08:34)
[2021-05-14] MEDS: CYANOCOBALAMIN (VITAMIN B-12) 2,500 MCG TAB.SUBL SL SCH (08:34)
[2021-05-14] MEDS: CHOLECALCIFEROL 1,000 UNITS 25 MCG TAB PO SCH ×2 (08:34→20:07)
[2021-05-14] MEDS: ZINC SULFATE 220 MG CAPSULE PO SCH (08:36)
[2021-05-14] MEDS: ENOXAPARIN INJ 30 MG/0.3 ML SYR SQ SCH ×2 (08:37→20:07)
[2021-05-14] MEDS: INSULIN GLARGINE SOLOSTAR 100 UNITS/ML 3 ML PEN SC SCH (09:24)
[2021-05-14] MEDS: INSULIN ASPART PER UNIT SC SCH ×4 (09:25→20:31)
[2021-05-14] MEDS: ACETAMINOPHEN 325 MG TAB PO PRN ×2 (09:35→18:02)
[2021-05-14] MEDS: COLLAGENASE OINT 30 GM TUBE EXT SCH (09:37)
[2021-05-14] MEDS: risperiDONE ODT 0.5 MG SOLTAB PO SCH (20:08)
--- NOTE | 2021-05-14 20:18 | Hospitalist Progress Note ---
Date of Service May 14, 2021 Assessment & Plan (1) Pneumonia due to COVID-19 virus: Plan: - clinically resolved - NC O2 weaned off 05/03/21 and stable in RA since - s/p 10 day course of dexamethasone - no symptoms at this time (2) Metabolic encephalopathy: Plan: - suspect due to COVID encephalopathy, hospital psychosis, UTI, etc. - trialed Risperdal 0.25mg this week - has helped, and has tolerated the med and discussed with daughter - will increase to 0.5 mg and monitor for any symptoms/drowsiness -- Still having some hallucination/delusions but daughter reports much better compared to last week MRI brain without acute or subacute CVA; no ICH, tumor, etc. recent b12/tsh wnl - updated daughter over the phone - she states that several months ago the patient was a/o x 3 and living independently - she is receiving empiric thiamine 200mg BID --> would do so for 1 month - remains stable at this time (3) Parkinsons disease: Plan: -Continue with Carbidopa-Levadopa per home dosing --does she have underlying dementia from PD?? -MRI brain neg for acute findings -risperdal low dose 0.5mg HS - has helped delirium - continue (4) UTI (urinary tract infection): Plan: -E coli -course of Levaquin completed (5) Dysphagia: Plan: -pureed diet -no issues per staff (6) Hypernatremia: Plan: -resolved (7) Hypokalemia: Plan: -resolved (8) Diabetes: Plan: -control is very good at this time -lantus to 5 units and SSI (9) Rhabdomyolysis: Plan: -RESOLVED -found on floor at her home -- likely cause of rhabdo -COVID can also cause rhabdo (10) Pressure injury of back, stage 2: Plan: Present on admission secondary to patient being found down at home [employer], frequent turning, etc there is now eschar forming - wound care saw, paulayl's added once daily - will need outpatient F/U ([phone]) cont MVI/vit C/zinc/thiamine waffle cushion for comfort, pain control ordered --> reports improvement in discomfort and no need for medication (11) Chronic kidney disease, stage 3a: Plan: baseline CrCl 50s stable (12) Urinary retention: Plan: 2nd to UTI? s/p reyes reinsertion 05/04/21 - will keep today to try and prevent urine exposure to wound but will look at removing tomorrow to perform TOV Plan: will need rehab post-d/c case management helping with post-d/c disposition - multiple referrals out including to SNFs in the [place] area uncertain if any SNF vaccine requirements would apply to her given that she just is getting over COVID cont PT/OT --> updated pt's daughter via phone on 05/12 Admission and Anticipated Discharge Date Admission Date: April 18, 2021 Subjective Reports doing well today. States she has been sleeping well and tolerating a diet. Denies having any pain but states she has two sores on her bottom. Awaiting placement Review of Systems Review of Systems: All systems reviewed & are unremarkable except as noted in Subjective Physical Exam Physical Exam: PHYSICAL EXAM General Appearance: WDWN in NAD who is A&O x person and place but gets more confused in the afternoon HEENT: Head is normocephalic/atraumatic; Hearing grossly intact; Mucous membranes moist Neck: Supple; Trachea midline; Neg JVD Heart: RRR with murmur Lungs: CTA in all lung grande bilaterally; Respirations unlabored; Neg accessory muscle use Abdomen: Soft, non-tender, non-distended; Positive BS x 4 quadrants Extremities: Neg cyanosis Neurological: Speech clear; tremor Psychiatric: Appropriate mood/affect Skin: Normal Color; Warm/Dry Results & Data Results & Data ([facility]) Vital Signs (Past 12 Hours) Vital Signs Temp Pulse Resp BP Pulse Ox 05/14/21 16:03 36.9 C 93 H 18 126/83 94 PG Care Time/CCT Total # of Minutes Spent Total Time Spent with Patient: Total time spent is greater than 50% in coordination of care (as documented) at patient's floor/unit and/or counseling patient: Coding Level of Care Code 03773 Subseq Hosp Care Lvl 2 Diagnoses Pneumonia due to COVID-19 virus U07.1; J12.82 Metabolic encephalopathy G93.41 Parkinsons disease G20 UTI (urinary tract infection) N39.0 Dysphagia R13.10 Hypernatremia E87.0 Hypokalemia E87.6 Diabetes E11.9 Rhabdomyolysis M62.82 Pressure injury of back, stage 2 L89.102 Chronic kidney disease, stage 3a N18.31 Urinary retention R33.9
[2021-05-15] MEDS: CEROVITE ADV FORMULA TAB PO SCH (08:10)
[2021-05-15] MEDS: ENOXAPARIN INJ 30 MG/0.3 ML SYR SQ SCH ×2 (08:10→21:37)
[2021-05-15] MEDS: THIAMINE HCL 100 MG TAB PO SCH ×2 (08:10→21:38)
[2021-05-15] MEDS: CARBIDOPA/LEVODOPA 25/100MG TAB PO SCH ×4 (08:10→21:36)
[2021-05-15] MEDS: PYRIDOXINE HCL 50 MG TAB PO SCH ×2 (08:10→21:38)
[2021-05-15] MEDS: CHOLECALCIFEROL 1,000 UNITS 25 MCG TAB PO SCH ×2 (08:10→21:37)
[2021-05-15] MEDS: ZINC SULFATE 220 MG CAPSULE PO SCH (08:10)
[2021-05-15] MEDS: CYANOCOBALAMIN (VITAMIN B-12) 2,500 MCG TAB.SUBL SL SCH (08:11)
[2021-05-15] MEDS: ASCORBIC ACID 500 MG TAB PO SCH (08:11)
[2021-05-15] MEDS: COLLAGENASE OINT 30 GM TUBE EXT SCH (08:11)
[2021-05-15] MEDS: INSULIN ASPART PER UNIT SC SCH ×4 (09:00→21:37)
[2021-05-15] MEDS: INSULIN GLARGINE SOLOSTAR 100 UNITS/ML 3 ML PEN SC SCH (09:01)
[2021-05-15] MEDS: ACETAMINOPHEN 325 MG TAB PO PRN (12:21)
[2021-05-15] MEDS: POLYETHYLENE (MIRALAX) 17 GM PACK PO PRN (17:58)
--- NOTE | 2021-05-15 18:57 | Hospitalist Progress Note ---
Date of Service May 15, 2021 Assessment & Plan (1) Pneumonia due to COVID-19 virus: Plan: - clinically resolved - NC O2 weaned off 05/03/21 and stable in RA since - s/p 10 day course of dexamethasone - no symptoms at this time (2) Metabolic encephalopathy: Plan: - suspect due to COVID encephalopathy, hospital psychosis, UTI, etc. - trialed Risperdal 0.25mg this week - has helped, and has tolerated the med and discussed with daughter - increased to 0.5 mg and monitor for any symptoms/drowsiness -- Still having some hallucination/delusions but daughter reports much better compared to last week MRI brain without acute or subacute CVA; no ICH, tumor, etc. recent b12/tsh wnl - updated daughter over the phone 05/15 - she states that several months ago the patient was a/o x 3 and living independently - she is receiving empiric thiamine 200mg BID --> would do so for 1 month - remains stable at this time Consider repeat UA? (3) Parkinsons disease: Plan: -Continue with Carbidopa-Levadopa per home dosing --does she have underlying dementia from PD?? -MRI brain neg for acute findings -risperdal low dose 0.5mg HS - has helped delirium - continue (4) UTI (urinary tract infection): Plan: -E coli -course of Levaquin completed (5) Dysphagia: Plan: -pureed diet -no issues per staff (6) Hypernatremia: Plan: -resolved (7) Hypokalemia: Plan: -resolved (8) Diabetes: Plan: -control is very good at this time -lantus to 5 units and SSI (9) Rhabdomyolysis: Plan: -RESOLVED -found on floor at her home -- likely cause of rhabdo -COVID can also cause rhabdo (10) Pressure injury of back, stage 2: Plan: Present on admission secondary to patient being found down at home [employer], frequent turning, etc there is now eschar forming - wound care saw, santyl's added once daily - will need outpatient F/U ([phone]) cont MVI/vit C/zinc/thiamine waffle cushion for comfort, pain control ordered --> reports improvement in discomfort and no need for medication (11) Chronic kidney disease, stage 3a: Plan: baseline CrCl 50s stable (12) Urinary retention: Plan: 2nd to UTI? s/p reyes reinsertion 05/04/21 - will keep today to try and prevent urine exposure to wound but will look at removing tomorrow to perform TOV Plan: will need rehab post-d/c case management helping with post-d/c disposition - multiple referrals out including to SNFs in the [place] area uncertain if any SNF vaccine requirements would apply to her given that she just is getting over COVID cont PT/OT --> updated pt's daughter via phone on 05/15 Admission and Anticipated Discharge Date Admission Date: April 18, 2021 Subjective Patient reports doing well. Nearly daily she states she is sleeping like a log. Tolerating a diet. States her bottom hurts but denies needing anything for pain. Feels like she might be getting a bit stronger. Review of Systems Review of Systems: All systems reviewed & are unremarkable except as noted in Subjective Physical Exam Physical Exam: PHYSICAL EXAM General Appearance: WDWN in NAD who is A&O x person HEENT: Head is normocephalic/atraumatic; Hearing grossly intact; Mucous membranes moist Neck: Supple; Trachea midline; Neg JVD Heart: RRR with murmur Lungs: CTA in all lung grande bilaterally; Respirations unlabored; Neg accessory muscle use Abdomen: Soft, non-tender, non-distended; Positive BS x 4 quadrants Extremities: Neg cyanosis Neurological: Speech clear; tremor Psychiatric: Appropriate mood/affect Skin: Normal Color; Warm/Dry Results & Data Results & Data ([facility]) Vital Signs (Past 12 Hours) Vital Signs Temp Pulse Pulse Resp BP BP Pulse Ox 05/15/21 14:40 36.9 C 111 H 18 121/68 93 05/15/21 07:39 37 C 101 H 18 138/84 91 PG Care Time/CCT Total # of Minutes Spent Total Time Spent with Patient: Total time spent is greater than 50% in coordination of care (as documented) at patient's floor/unit and/or counseling patient: Coding Level of Care Code 89991 Subseq Hosp Care Lvl 2 Diagnoses Pneumonia due to COVID-19 virus U07.1; J12.82 Metabolic encephalopathy G93.41 Parkinsons disease G20 UTI (urinary tract infection) N39.0 Dysphagia R13.10 Hypernatremia E87.0 Hypokalemia E87.6 Diabetes E11.9 Rhabdomyolysis M62.82 Pressure injury of back, stage 2 L89.102 Chronic kidney disease, stage 3a N18.31 Urinary retention R33.9
[2021-05-15] MEDS: risperiDONE ODT 0.5 MG SOLTAB PO SCH (21:38)
[2021-05-16 06:29] LABS: Hematocrit (blood only) 33.6 % (37-47); Hemoglobin 10.8 g/dL (12.0-16.0); Mean Corpuscular Hemoglobin 29.5 pg (25-34); Mean Corpuscular Hgb Conc 32.1 g/dL (32-36); Mean Corpuscular Volume 91.8 fL (80-100); Mean Platelet Volume 9.6 fL (7.4-10.4); Platelet Count 253 K/uL (130-400); RDW Coefficient of Variation 14.8 % (11.5-14.5); RDW Standard Deviation 49.8 fL (36.4-46.3); Red Blood Count 3.66 M/uL (4.2-5.4); White Blood Count 5.28 K/uL (4.8-10.8)
[2021-05-16 07:06] LABS: BUN Creatinine Ratio 27.5 (10-20); Calcium 8.8 mg/dl (8.5-10.1); Creatinine Clr Calc Pharmacy 57.2 ml/min; Est GFR (African American) 91.4 ml/min; Est GFR (Non-African American) 78.9 ml/min; Potassium 3.8 mmol/L (3.5-5.1)
[2021-05-16] MEDS: CYANOCOBALAMIN (VITAMIN B-12) 2,500 MCG TAB.SUBL SL SCH (07:40)
[2021-05-16] MEDS: CARBIDOPA/LEVODOPA 25/100MG TAB PO SCH ×5 (07:40→22:31)
[2021-05-16] MEDS: ASCORBIC ACID 500 MG TAB PO SCH (07:40)
[2021-05-16] MEDS: THIAMINE HCL 100 MG TAB PO SCH ×3 (07:40→22:32)
[2021-05-16] MEDS: CHOLECALCIFEROL 1,000 UNITS 25 MCG TAB PO SCH ×3 (07:40→22:31)
[2021-05-16] MEDS: ZINC SULFATE 220 MG CAPSULE PO SCH (07:40)
[2021-05-16] MEDS: CEROVITE ADV FORMULA TAB PO SCH (07:40)
[2021-05-16] MEDS: PYRIDOXINE HCL 50 MG TAB PO SCH ×3 (07:40→22:31)
[2021-05-16] MEDS: ENOXAPARIN INJ 30 MG/0.3 ML SYR SQ SCH ×3 (07:41→22:31)
[2021-05-16] MEDS: COLLAGENASE OINT 30 GM TUBE EXT SCH (07:41)
[2021-05-16] MEDS: ACETAMINOPHEN 325 MG TAB PO PRN ×2 (07:50→16:10)
[2021-05-16] MEDS: INSULIN ASPART PER UNIT SC SCH ×4 (08:41→21:46)
[2021-05-16] MEDS: INSULIN GLARGINE SOLOSTAR 100 UNITS/ML 3 ML PEN SC SCH (08:45)
[2021-05-16] MEDS: POLYETHYLENE (MIRALAX) 17 GM PACK PO PRN (09:38)
[2021-05-16] MEDS ORDERED: bisacodyL 10 MG SUPP PR PRN (09:44)
--- NOTE | 2021-05-16 12:50 | Hospitalist Progress Note ---
Date of Service May 16, 2021 Assessment & Plan (1) Pneumonia due to COVID-19 virus: Plan: - clinically resolved - NC O2 weaned off 05/03/21 and stable in RA since - s/p 10 day course of dexamethasone - no symptoms at this time (2) Metabolic encephalopathy: Plan: - suspect due to COVID encephalopathy, hospital psychosis, UTI, etc. - trialed Risperdal 0.25mg this week - has helped, and has tolerated the med and discussed with daughter - increased to 0.5 mg and monitor for any symptoms/drowsiness -- Still having some hallucination/delusions but daughter reports much better compared to last week MRI brain without acute or subacute CVA; no ICH, tumor, etc. recent b12/tsh wnl - Daughter she states that several months ago the patient was a/o x 3 and living independently -- Per our conversation on 05/15 she noticed some short term memory issues that day - she is receiving empiric thiamine 200mg BID --> would do so for 1 month - remains stable at this time Will repeat UA given eric (3) Parkinsons disease: Plan: -Continue with Carbidopa-Levadopa per home dosing --does she have underlying dementia from PD?? -MRI brain neg for acute findings -risperdal low dose 0.5mg HS - has helped delirium - continue (4) UTI (urinary tract infection): Plan: -E coli -course of Levaquin completed (5) Dysphagia: Plan: -pureed diet -no issues per staff (6) Hypernatremia: Plan: -resolved (7) Hypokalemia: Plan: -resolved (8) Diabetes: Plan: -control is very good at this time -lantus to 5 units and SSI (9) Rhabdomyolysis: Plan: -RESOLVED -found on floor at her home -- likely cause of rhabdo -COVID can also cause rhabdo (10) Pressure injury of back, stage 2: Plan: Present on admission secondary to patient being found down at home [employer], frequent turning, etc there is now eschar forming - wound care saw, santyl's added once daily - will need outpatient F/U ([phone]) cont MVI/vit C/zinc/thiamine waffle cushion for comfort, pain control ordered --> reports improvement in discomfort and no need for medication (11) Chronic kidney disease, stage 3a: Plan: baseline CrCl 50s stable (12) Urinary retention: Plan: 2nd to UTI? s/p reyes reinsertion 05/04/21 - kept to try and prevent urine exposure to wound but will remove pending her moving her bowels Plan: will need rehab post-d/c case management helping with post-d/c disposition - multiple referrals out including to SNFs in the [place] area uncertain if any SNF vaccine requirements would apply to her given that she just is getting over COVID cont PT/OT --> updated pt's daughter via phone on 05/15 - will try and call today as well Admission and Anticipated Discharge Date Admission Date: April 18, 2021 Supervising Physician Co-Signing Physician Notes PA Supervision Note: I did not personally see or examine the patient today, but I verified all bahena points of RAVI Charles's assessment and plan with the following exceptions/additions: None Subjective Reports feeling well this morning. She is alert to herself. Remains pleasant and states she doesn't mind staying here with us. We are still awaiting placement for her. She ate breakfast. She states she is very rested however is up most of the night per nursing. She also hasn't moved her bowels in a couple days. She denies abdominal pain but states she thinks if feels like she needs to go. Review of Systems Review of Systems: All systems reviewed & are unremarkable except as noted in Subjective Physical Exam Physical Exam: PHYSICAL EXAM General Appearance: WDWN in NAD who is A&O x person HEENT: Head is normocephalic/atraumatic; Hearing grossly intact; Mucous membranes moist Neck: Supple; Trachea midline; Neg JVD Heart: RRR with murmur Lungs: CTA in all lung grande bilaterally; Respirations unlabored; Neg accessory muscle use Abdomen: Soft, non-tender, non-distended; Positive BS x 4 quadrants Extremities: Neg cyanosis Neurological: Speech clear Psychiatric: Appropriate mood/affect Skin: Normal Color; Warm/Dry Results & Data Results & Data ([facility]) Vital Signs (Past 12 Hours) Vital Signs Temp Pulse Resp BP Pulse Ox 05/16/21 07:00 37.0 C 80 18 118/70 97 PG Care Time/CCT Total # of Minutes Spent Total Time Spent with Patient: Total time spent is greater than 50% in coordination of care (as documented) at patient's floor/unit and/or counseling patient: Coding Level of Care Code 94074 Subseq Hosp Care Lvl 2 Diagnoses Pneumonia due to COVID-19 virus U07.1; J12.82 Metabolic encephalopathy G93.41 Parkinsons disease G20 UTI (urinary tract infection) N39.0 Dysphagia R13.10 Hypernatremia E87.0 Hypokalemia E87.6 Diabetes E11.9 Rhabdomyolysis M62.82 Pressure injury of back, stage 2 L89.102 Chronic kidney disease, stage 3a N18.31 Urinary retention R33.9
[2021-05-16 13:50] LABS: Appearance Urine Cloudy (Clear); Bacteria Urine Automated 2+ (Negative); Bilirubin Urine Negative (Negative); Blood Urine 2+ (Negative); Color Urine Yellow; Glucose Urine UA Negative (Negative); Ketones Urine Negative (Negative); Leukocyte Esterase Urine 3+ (Negative); Nitrite Urine Negative (Negative); Protein Urine Negative (Negative); Specific Gravity Urine 1.009 (1.000-1.030); Urobilinogen Urine Negative (Negative); WBC Urine Automated >30 /hpf (0-5); pH Urine 5.5 (4.5-7.5)
[2021-05-16 13:59] LABS: Calcium Oxalate Crystals Urine Present (None Prsent)
[2021-05-16] MEDS: cephALEXin 500 MG CAP PO SCH ×2 (21:42→22:31)
[2021-05-16] MEDS: risperiDONE ODT 0.5 MG SOLTAB PO SCH ×2 (21:44→22:32)
--- NOTE | 2021-05-17 08:59 | Hospitalist Progress Note ---
Date of Service May 17, 2021 Assessment & Plan (1) Pneumonia due to COVID-19 virus: Plan: - clinically resolved - NC O2 weaned off 05/03/21 and stable in RA since - s/p 10 day course of dexamethasone - no symptoms at this time 94% on RA (2) Metabolic encephalopathy: Plan: - suspect due to COVID encephalopathy, hospital psychosis, UTI, etc. - trialed Risperdal 0.25mg this week - has helped, and has tolerated the med and discussed with daughter - increased to 0.5 mg and monitor for any symptoms/drowsiness -- Still having some hallucination/delusions but daughter reports much better compared to last week MRI brain without acute or subacute CVA; no ICH, tumor, etc. recent b12/tsh wnl - Daughter she states that several months ago the patient was a/o x 3 and living independently -- Per our conversation on 05/15 she noticed some short term memory issues that day - she is receiving empiric thiamine 200mg BID --> would do so for 1 month - remains stable at this time and answering questions appropriately Will repeat UA given reyes ?Need for abdominal imaging given recurrent infection vs catheter associated UTI? calcium oxalate on imaging...?stone. No CVA tenderness on exam. WBC wnl, afebrile. --> UA appears infected --> no urinary symptoms however will monitor cx (gram positive cocci on preliminary)--(prior e coli 04/30, pansensitive and had reyes placed following for incontinent issues, since discontinued) Started on keflex QID evening 05/16 -- continued for now (3) Parkinsons disease: Plan: -Continue with Carbidopa-Levadopa per home dosing --does she have underlying dementia from PD?? -MRI brain neg for acute findings -risperdal low dose 0.5mg HS - has helped delirium - continue (4) UTI (urinary tract infection): Plan: -E coli -course of Levaquin completed UA 05/16 appears infected --> urine cx gram positive cocci, monitor/abx (5) Dysphagia: Plan: -pureed diet -no issues per staff (6) Hypernatremia: Plan: -resolved (7) Hypokalemia: Plan: -resolved (8) Diabetes: Plan: -control is very good at this time -lantus to 5 units and SSI (9) Rhabdomyolysis: Plan: -RESOLVED -found on floor at her home -- likely cause of rhabdo -COVID can also cause rhabdo (10) Pressure injury of back, stage 2: Plan: Present on admission secondary to patient being found down at home [employer], frequent turning, etc there is now eschar forming - wound care saw, santyl's added once daily - will need outpatient F/U ([phone]) cont MVI/vit C/zinc/thiamine waffle cushion for comfort, pain control ordered --> reports improvement in discomfort and no need for medication (11) Chronic kidney disease, stage 3a: Plan: baseline CrCl 50s stable (12) Urinary retention: Plan: 2nd to UTI? s/p reyes reinsertion 05/04/21 - kept to try and prevent urine exposure to wound but will remove pending her moving her bowels Plan: will need rehab post-d/c case management helping with post-d/c disposition - multiple referrals out including to SNFs in the [place] area uncertain if any SNF vaccine requirements would apply to her given that she just is getting over COVID cont PT/OT --> updated pt's daughter via phone on 05/15 - will try and call today as well Admission and Anticipated Discharge Date Admission Date: April 18, 2021 Supervising Physician Co-Signing Physician Notes PA Supervision Note: I did not personally see or examine the patient today, but I verified all bahena points of RAVI Knapp's assessment and plan with the following exceptions/additions: None Subjective patient eval this morning took a while to get pills down but did ok tolerating pureed diet urinated after reyes yesterday but no symptoms -- waiting cx prior to abx therapy. patient knows it is april, unsure on year but knows in hospital. discussed needing vaccine for placement -- she states "thats 'BS'" and discussed will reach out to CM about options/discussion on Wednesday. May benefit from home with family/therapy. Was independent several months ago but notes having people near that she has grown up with that she has paid in past to be able to provide living/assistance. Will check with CM about feasibility. No fever, chill, chest pain, shortness of breath, abdominal pain, nausea or vomiting at this time. Review of Systems Review of Systems: All systems reviewed & are unremarkable except as noted in HPI & below Physical Exam Physical Exam: gen - thin, frail, tremor of facial muscles from parkinson's - unchanged; pleasant confusion as previous but is alert to person; knows in hospital, April but not year/[facility] head/neck - normocephalic, no JVD, mmm heart - RRR, s1 s2, 1/6 MADELINE LSB, calves non-tender lungs - CTAB, no wheeze/crackles, 94% on RA abd - soft NT ND BS+ ext - no edema, pulses 2+ b/l neuro - tremor of facial muscles, mild tremor of arms (stable) psych - a/o x 2, occasionally time but knows April Results & Data Results & Data ([facility]) Vital Signs (Past 12 Hours) Vital Signs Temp Pulse Resp BP Pulse Ox 05/17/21 07:21 36.9 C 83 16 138/76 94 05/16/21 21:29 36.6 C 81 16 113/74 95 Laboratory Results 05/17/21 05/17/21 05/17/21 Range/Units 12:02 09:04 09:03 WBC 7.11 (4.8-10.8) K/uL RBC 4.03 L (4.2-5.4) M/uL Hgb 12.0 (12.0-16.0) g/dL Hct 37.5 (37-47) % MCV 93.1 (80-100) fL MCH 29.8 (25-34) pg MCHC 32.0 (32-36) g/dL RDW Std Deviation 50.6 H (36.4-46.3) fL RDW Coeff of Ilan 14.9 H (11.5-14.5) % Plt Count 333 (130-400) K/uL MPV 9.7 (7.4-10.4) fL Immature Gran % (Auto) 0.1 % Neut % (Auto) 76.4 % Lymph % (Auto) 14.6 % Clinch % (Auto) 8.4 % Eos % (Auto) 0.4 % Baso % (Auto) 0.1 % Neut # (Auto) 5.42 (1.4-6.5) K/uL Lymph # (Auto) 1.04 L (1.2-3.4) K/uL Clinch # (Auto) 0.60 H (0.11-0.59) K/uL Eos # (Auto) 0.03 (0-0.5) K/uL Baso # (Auto) 0.01 (0-0.2) K/uL Immature Gran # (Auto) 0.01 (0.00-0.02) K/uL Sodium 138 (136-145) mmol/L Potassium 3.9 (3.5-5.1) mmol/L Chloride 106 (98-107) mmol/L Carbon Dioxide 25 (21-32) mmol/L Anion Gap 7.0 (3-11) BUN 20 H (7-18) mg/dl Creatinine 0.89 (0.6-1.2) mg/dl Est Cr Clr Drug Dosing 46.9 ml/min Est GFR ( Amer) 71.9 ml/min Est GFR (Non-Af Amer) 62.1 ml/min BUN/Creatinine Ratio 22.7 H (10-20) Glucose 248 H (70-99) mg/dl POC Glucose 251 H (70-99) mg/dl Calcium 9.0 (8.5-10.1) mg/dl Urine Color Urine Appearance (Clear) Urine pH (4.5-7.5) Ur Specific [place] (1.000-1.030) Urine Protein (Negative) Urine Glucose (UA) (Negative) Urine Ketones (Negative) Urine Blood (Negative) Urine Nitrite (Negative) Urine Bilirubin (Negative) Urine Urobilinogen (Negative) Ur Leukocyte Esterase (Negative) Urine WBC (Auto) (0-5) /hpf Urine RBC (Auto) (0-4) /hpf U Hyaline Cast (Auto) (0-5) /lpf U Epithel Cells (Auto) (0-5) /lpf Urine Bacteria (Auto) (Negative) Calcium Oxalate Crystal (None Prsent) Urine Yeast (None Prsent) Stool Occult Bld Scrn (Negative) 05/17/21 05/17/21 05/16/21 Range/Units 08:18 04:59 Unknown WBC (4.8-10.8) K/uL RBC (4.2-5.4) M/uL Hgb (12.0-16.0) g/dL Hct (37-47) % MCV (80-100) fL MCH (25-34) pg MCHC (32-36) g/dL RDW Std Deviation (36.4-46.3) fL RDW Coeff of Ilan (11.5-14.5) % Plt Count (130-400) K/uL MPV (7.4-10.4) fL Immature Gran % (Auto) % Neut % (Auto) % Lymph % (Auto) % Clinch % (Auto) % Eos % (Auto) % Baso % (Auto) % Neut # (Auto) (1.4-6.5) K/uL Lymph # (Auto) (1.2-3.4) K/uL Clinch # (Auto) (0.11-0.59) K/uL Eos # (Auto) (0-0.5) K/uL Baso # (Auto) (0-0.2) K/uL Immature Gran # (Auto) (0.00-0.02) K/uL Sodium (136-145) mmol/L Potassium (3.5-5.1) mmol/L Chloride (98-107) mmol/L Carbon Dioxide (21-32) mmol/L Anion Gap (3-11) BUN (7-18) mg/dl Creatinine (0.6-1.2) mg/dl Est Cr Clr Drug Dosing ml/min Est GFR ( Amer) ml/min Est GFR (Non-Af Amer) ml/min BUN/Creatinine Ratio (10-20) Glucose (70-99) mg/dl POC Glucose 158 H (70-99) mg/dl Calcium (8.5-10.1) mg/dl Urine Color Yellow Urine Appearance Cloudy A (Clear) Urine pH 5.5 (4.5-7.5) Ur Specific [place] 1.009 (1.000-1.030) Urine Protein Negative (Negative) Urine Glucose (UA) Negative (Negative) Urine Ketones Negative (Negative) Urine Blood 2+ H (Negative) Urine Nitrite Negative (Negative) Urine Bilirubin Negative (Negative) Urine Urobilinogen Negative (Negative) Ur Leukocyte Esterase 3+ H (Negative) Urine WBC (Auto) >30 H (0-5) /hpf Urine RBC (Auto) 5-10 H (0-4) /hpf U Hyaline Cast (Auto) 1-5 (0-5) /lpf U Epithel Cells (Auto) 10-20 H (0-5) /lpf Urine Bacteria (Auto) 2+ H (Negative) Calcium Oxalate Crystal Present A (None Prsent) Urine Yeast Budding A (None Prsent) Stool Occult Bld Scrn Negative (Negative) 05/16/21 05/16/21 Range/Units 21:24 17:12 WBC (4.8-10.8) K/uL RBC (4.2-5.4) M/uL Hgb (12.0-16.0) g/dL Hct (37-47) % MCV (80-100) fL MCH (25-34) pg MCHC (32-36) g/dL RDW Std Deviation (36.4-46.3) fL RDW Coeff of Ilan (11.5-14.5) % Plt Count (130-400) K/uL MPV (7.4-10.4) fL Immature Gran % (Auto) % Neut % (Auto) % Lymph % (Auto) % Clinch % (Auto) % Eos % (Auto) % Baso % (Auto) % Neut # (Auto) (1.4-6.5) K/uL Lymph # (Auto) (1.2-3.4) K/uL Clinch # (Auto) (0.11-0.59) K/uL Eos # (Auto) (0-0.5) K/uL Baso # (Auto) (0-0.2) K/uL Immature Gran # (Auto) (0.00-0.02) K/uL Sodium (136-145) mmol/L Potassium (3.5-5.1) mmol/L Chloride (98-107) mmol/L Carbon Dioxide (21-32) mmol/L Anion Gap (3-11) BUN (7-18) mg/dl Creatinine (0.6-1.2) mg/dl Est Cr Clr Drug Dosing ml/min Est GFR ( Amer) ml/min Est GFR (Non-Af Amer) ml/min BUN/Creatinine Ratio (10-20) Glucose (70-99) mg/dl POC Glucose 160 H 110 H (70-99) mg/dl Calcium (8.5-10.1) mg/dl Urine Color Urine Appearance (Clear) Urine pH (4.5-7.5) Ur Specific [place] (1.000-1.030) Urine Protein (Negative) Urine Glucose (UA) (Negative) Urine Ketones (Negative) Urine Blood (Negative) Urine Nitrite (Negative) Urine Bilirubin (Negative) Urine Urobilinogen (Negative) Ur Leukocyte Esterase (Negative) Urine WBC (Auto) (0-5) /hpf Urine RBC (Auto) (0-4) /hpf U Hyaline Cast (Auto) (0-5) /lpf U Epithel Cells (Auto) (0-5) /lpf Urine Bacteria (Auto) (Negative) Calcium Oxalate Crystal (None Prsent) Urine Yeast (None Prsent) Stool Occult Bld Scrn (Negative) PG Care Time/CCT Total # of Minutes Spent Total Time Spent with Patient: Total time spent is greater than 50% in coordination of care (as documented) at patient's floor/unit and/or counseling patient: Coding Level of Care Code 92888 Subseq Hosp Care Lvl 2 Diagnoses Pneumonia due to COVID-19 virus U07.1; J12.82 Metabolic encephalopathy G93.41 Parkinsons disease G20 UTI (urinary tract infection) N39.0 Dysphagia R13.10 Hypernatremia E87.0 Hypokalemia E87.6 Diabetes E11.9 Rhabdomyolysis M62.82 Pressure injury of back, stage 2 L89.102 Chronic kidney disease, stage 3a N18.31 Urinary retention R33.9
[2021-05-17] MEDS: ASCORBIC ACID 500 MG TAB PO SCH (09:20)
[2021-05-17] MEDS: CARBIDOPA/LEVODOPA 25/100MG TAB PO SCH ×4 (09:20→20:41)
[2021-05-17 09:21] LABS: Basophils # (auto) 0.01 K/uL (0-0.2); Basophils % (auto) 0.1 %; Eosinophils # (auto) 0.03 K/uL (0-0.5); Eosinophils % (auto) 0.4 %; Hematocrit (blood only) 37.5 % (37-47); Immature Granulocytes # (auto) 0.01 K/uL (0.00-0.02); Immature Granulocytes % (auto) 0.1 %; Lymphocytes # (auto) 1.04 K/uL (1.2-3.4); Lymphocytes % (auto) 14.6 %; Mean Corpuscular Hemoglobin 29.8 pg (25-34); Mean Corpuscular Volume 93.1 fL (80-100); Mean Platelet Volume 9.7 fL (7.4-10.4); Monocytes % (auto) 8.4 %; Neutrophils # (auto) 5.42 K/uL (1.4-6.5); Neutrophils % (auto) 76.4 %; Platelet Count 333 K/uL (130-400); RDW Coefficient of Variation 14.9 % (11.5-14.5); RDW Standard Deviation 50.6 fL (36.4-46.3); Red Blood Count 4.03 M/uL (4.2-5.4); White Blood Count 7.11 K/uL (4.8-10.8)
[2021-05-17] MEDS: cephALEXin 500 MG CAP PO SCH ×2 (09:21→20:41)
[2021-05-17] MEDS: CHOLECALCIFEROL 1,000 UNITS 25 MCG TAB PO SCH ×2 (09:22→20:41)
[2021-05-17] MEDS: COLLAGENASE OINT 30 GM TUBE EXT SCH (09:22)
[2021-05-17] MEDS: ENOXAPARIN INJ 30 MG/0.3 ML SYR SQ SCH ×2 (09:23→20:41)
[2021-05-17] MEDS: CYANOCOBALAMIN (VITAMIN B-12) 2,500 MCG TAB.SUBL SL SCH (09:24)
[2021-05-17] MEDS: CEROVITE ADV FORMULA TAB PO SCH (09:24)
[2021-05-17] MEDS: PYRIDOXINE HCL 50 MG TAB PO SCH ×2 (09:25→20:41)
[2021-05-17] MEDS: ZINC SULFATE 220 MG CAPSULE PO SCH (09:26)
[2021-05-17] MEDS: THIAMINE HCL 100 MG TAB PO SCH ×2 (09:26→20:41)
[2021-05-17] MEDS: INSULIN GLARGINE SOLOSTAR 100 UNITS/ML 3 ML PEN SC SCH (09:28)
[2021-05-17] MEDS: INSULIN ASPART PER UNIT SC SCH ×4 (09:33→20:39)
[2021-05-17 09:40] LABS: BUN Creatinine Ratio 22.7 (10-20); Creatinine Clr Calc Pharmacy 46.9 ml/min; Est GFR (African American) 71.9 ml/min; Est GFR (Non-African American) 62.1 ml/min; Potassium 3.9 mmol/L (3.5-5.1)
[2021-05-17] MEDS: risperiDONE ODT 0.5 MG SOLTAB PO SCH (20:41)
--- NOTE | 2021-05-18 08:24 | Hospitalist Progress Note ---
Date of Service May 18, 2021 Assessment & Plan (1) Pneumonia due to COVID-19 virus: Plan: - clinically resolved - NC O2 weaned off 05/03/21 and stable in RA since - s/p 10 day course of dexamethasone - no symptoms at this time 95% on RA Regarding inpatient vaccination status for placement: Patient agreeable to receiving J&J booster as well, but wanted me to also discuss with her daughter. Patient and daughter agreeable to J&J booster to assist in search for bed placement/SNF. Daughter initially thought patient was "clear" and by that she thought mother tested negative for COVID to be taken off of precautions. Discussed that only on isolation for certain number of days and could test positive for several months, and that SNF are requiring patients to be vaccinated at many facilities. Will order for today. Possible patient may have to wait until "effective" but at least will start from today. --> Discussed with pharmacy and they will enter for today Monitor for fevers following/discomfort. 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 - trialed Risperdal 0.25mg this week - has helped, and has tolerated the med and discussed with daughter - increased to 0.5 mg and monitor for any symptoms/drowsiness -- Still having some hallucination/delusions but daughter reports much better compared to last week MRI brain without acute or subacute CVA; no ICH, tumor, etc. recent b12/tsh wnl - Daughter she states that several months ago the patient was a/o x 3 and living independently -- Per our conversation on 05/15 she noticed some short term memory issues that day - she is receiving empiric thiamine 200mg BID --> would do so for 1 month - remains stable at this time and answering questions appropriately Will repeat UA given reyes ?Need for abdominal imaging given recurrent infection vs catheter associated UTI? calcium oxalate on imaging...?stone. No CVA tenderness on exam. WBC wnl, afebrile. --> UA appears infected --> no urinary symptoms however will monitor cx (gram positive cocci on preliminary)--(prior e coli 04/30, pansensitive and had reyes placed following for incontinent issues, since discontinued) Started on keflex QID evening 05/16 --> coag neg staph not saprophytic, sensitive to Nitro, Dapto, Vanco. Switched to Nitrofurantoin today. Cautious in patient with encephalopathy/Beers Criteria. Knew it was April today, however RN said earlier in morning was confused and did state "20" for year but coached into "2020". Switched abx as above. Continue to monitor (3) Parkinsons disease: Plan: -Continue with Carbidopa-Levadopa per home dosing --does she have underlying dementia from PD?? -MRI brain neg for acute findings -risperdal low dose 0.5mg HS - has helped delirium - continue (4) UTI (urinary tract infection): Plan: -E coli during admission-course of Levaquin completed Reyes since discontinued Repeat Urine cx with coag neg staph, not saprophytic, sensitive to Nitro/Dapto/Vanco --> switched from keflex to Nitrofurantoin 05/18 to complete course. (5) Dysphagia: Plan: -pureed diet -no issues per staff or patient and tolerating well (6) Hypernatremia: Plan: -resolved (7) Hypokalemia: Plan: -resolved (8) Diabetes: Plan: -control is very good at this time -lantus to 5 units and SSI (9) Rhabdomyolysis: Plan: -RESOLVED -found on floor at her home -- likely cause of rhabdo -COVID can also cause rhabdo (10) Pressure injury of back, stage 2: Plan: Present on admission secondary to patient being found down at home Optifoams, frequent turning, etc there is now eschar forming - wound care saw, santyl's added once daily - will need outpatient F/U ([phone]) cont MVI/vit C/zinc/thiamine waffle cushion for comfort, pain control ordered --> reports improvement in discomfort and no need for medication (11) Chronic kidney disease, stage 3a: Plan: baseline CrCl 50s stable (12) Urinary retention: Plan: 2nd to UTI? s/p reyes reinsertion 05/04/21 - kept to try and prevent urine exposure to wound but since removed, has been voiding since T x of UTI as above Plan: will need rehab post-d/c case management helping with post-d/c disposition - multiple referrals out including to SNFs in the [place] area uncertain if any SNF vaccine requirements would apply to her given that she just is getting over COVID --> Still needing J&J booster --> discussed with patient and daughter on phone 05/18, both agreeable and will give Booster 05/18 which should help with placement cont PT/OT Admission and Anticipated Discharge Date Admission Date: April 18, 2021 Supervising Physician Co-Signing Physician Notes PA Supervision Note: I did not personally see or examine the patient today, but I verified all bahena points of RAVI Knapp's assessment and plan with the following exceptions/additions: None Subjective Patient evaluated this morning. Up in chair, doing well. Said her son visited her last night and brought tutu presents. Discussed J&J vaccine. She is willing. Updated daughter on phone -- also agreeable. Upset her half brother visited last night and changed code word and that she is primary contact. Contacted admissions to have this changed. Discussed J&J booster and that will hopefully help with placement/getting SNF closer to [place]. Multiple referrals in place at this time. Currently without fever, chills, chest pain, shortness of breath, abdominal pain nausea or vomiting. Anxious about still being in the hospital and wanting to go home. Discussed booster should help with bed search if son unable to accommodate. Per daughter, feels patient should go to rehab for "bridge first". Updated CM and will need to look into availability /to administer while inpatient this week. Daughter was under understanding she was tested negative prior to coming off of isolation precautions. Discussed could test positive for months and this would not change course of treatment. Review of Systems Review of Systems: All systems reviewed & are unremarkable except as noted in HPI & below Physical Exam Physical Exam: gen - thin, frail, tremor of facial muscles from parkinson's - unchanged; pleasant confusion as previous but is alert to person; knows in hospital, April and stated year wsa 2020 today (although RN said earlier in morning unable to tell year) head/neck - normocephalic, no JVD, mmm heart - RRR, s1 s2, 1/6 MADELINE LSB, calves non-tender lungs - CTAB, no wheeze/crackles, 95% on RA abd - soft NT ND BS+ ext - no edema, pulses 2+ b/l neuro - tremor of facial muscles, mild tremor of arms (stable) psych - a/o x 2, knows April, today stated 2020 but occasionally not oriented to time Results & Data Results & Data ([facility]) Vital Signs (Past 12 Hours) Vital Signs Temp Pulse Pulse Resp BP Pulse Ox 05/18/21 07:34 36.8 C 92 H 16 131/78 95 05/17/21 22:34 36.9 C 80 16 102/63 96 Laboratory Results 05/18/21 05/17/21 05/17/21 Range/Units 08:17 20:34 17:15 POC Glucose 203 H 146 H 139 H (70-99) mg/dl 05/17/21 Range/Units 12:02 POC Glucose 251 H (70-99) mg/dl PG Care Time/CCT Total # of Minutes Spent Total Time Spent with Patient: Total time spent is greater than 50% in coordination of care (as documented) at patient's floor/unit and/or counseling patient: Coding Level of Care Code 96267 Subseq Hosp Care Lvl 2 Diagnoses Pneumonia due to COVID-19 virus U07.1; J12.82 Metabolic encephalopathy G93.41 Parkinsons disease G20 UTI (urinary tract infection) N39.0 Dysphagia R13.10 Hypernatremia E87.0 Hypokalemia E87.6 Diabetes E11.9 Rhabdomyolysis M62.82 Pressure injury of back, stage 2 L89.102 Chronic kidney disease, stage 3a N18.31 Urinary retention R33.9
[2021-05-18] MEDS: ASCORBIC ACID 500 MG TAB PO SCH (08:47)
[2021-05-18] MEDS: ZINC SULFATE 220 MG CAPSULE PO SCH (08:47)
[2021-05-18] MEDS: THIAMINE HCL 100 MG TAB PO SCH ×2 (08:47→20:10)
[2021-05-18] MEDS: CARBIDOPA/LEVODOPA 25/100MG TAB PO SCH ×4 (08:47→20:08)
[2021-05-18] MEDS: PYRIDOXINE HCL 50 MG TAB PO SCH ×2 (08:48→20:09)
[2021-05-18] MEDS: CEROVITE ADV FORMULA TAB PO SCH (08:48)
[2021-05-18] MEDS: cephALEXin 500 MG CAP PO SCH (08:48)
[2021-05-18] MEDS: CYANOCOBALAMIN (VITAMIN B-12) 2,500 MCG TAB.SUBL SL SCH (08:49)
[2021-05-18] MEDS: CHOLECALCIFEROL 1,000 UNITS 25 MCG TAB PO SCH ×2 (08:49→20:08)
[2021-05-18] MEDS: INSULIN GLARGINE SOLOSTAR 100 UNITS/ML 3 ML PEN SC SCH (08:52)
[2021-05-18] MEDS: ENOXAPARIN INJ 30 MG/0.3 ML SYR SQ SCH ×2 (08:52→20:08)
[2021-05-18] MEDS: COLLAGENASE OINT 30 GM TUBE EXT SCH (08:53)
[2021-05-18] MEDS: INSULIN ASPART PER UNIT SC SCH ×4 (08:58→20:51)
[2021-05-18] MEDS: nitrofurantoin macrocrystaL 50 MG CAP PO SCH ×3 (12:36→20:09)
[2021-05-18] MEDS ORDERED: COVID-19 VAC,AD26(JANSSEN)/PF 0.5 ML SYR IM ONE (15:00)
[2021-05-18] MEDS: risperiDONE ODT 0.5 MG SOLTAB PO SCH (20:10)
[2021-05-18] MEDS: ACETAMINOPHEN 325 MG TAB PO PRN (20:50)
[2021-05-19] MEDS ORDERED: POLYETHYLENE (MIRALAX) 17 GM PACK PO PRN (05:37)
[2021-05-19] MEDS ORDERED: ACETAMINOPHEN 325 MG TAB PO PRN (05:37)
[2021-05-19] MEDS ORDERED: ONDANSETRON INJ 2 MG/ML 2 ML VIAL IV PRN (05:44)
[2021-05-19] MEDS ORDERED: GLUCOSE 10 TABS/TUBE PO PRN ×2 (05:44→08:27)
[2021-05-19] MEDS ORDERED: DEXTROSE 50% 50 ML SYRINGE IV PRN ×2 (05:44→08:27)
[2021-05-19] MEDS ORDERED: GLUCAGON FOR INJ 1 MG VIAL SQ PRN ×2 (05:44→08:27)
[2021-05-19] MEDS ORDERED: GLUCOSE 40% GEL 15 GM TUBE PO PRN ×2 (05:44→08:27)
[2021-05-19] MEDS ORDERED: CARBOHYDRATES FOR HYPOGLYCEMIA PO PRN (08:27)
--- NOTE | 2021-05-19 08:29 | Hospitalist Progress Note ---
Date of Service May 19, 2021 Assessment & Plan (1) Pneumonia due to COVID-19 virus: Plan: clinically resolved - NC O2 weaned off 05/03/21 and stable in RA since - s/p 10 day course of dexamethasone - no symptoms at this time 95% on RA Regarding inpatient vaccination status for placement: Patient agreeable to receiving J&J booster as well, but wanted me to also discuss with her daughter. Patient and daughter agreeable to J&J booster to assist in search for bed placement/SNF. Daughter initially thought patient was "clear" and by that she thought mother tested negative for COVID to be taken off of precautions. Discussed that only on isolation for certain number of days and could test positive for several months, and that SNF are requiring patients to be vaccinated at many facilities. Ordered J&J for 05/18 but then patient thought possibly she did have in past -- checked with pharmacy/database and had call to [facility] office and patient never had documentation of receiving this. --> Alerted CM of booster for today, 05/19, and hopefully will assist with placement. Daughter adrienne brown and making decisions. Son on board with patient being too much at home per sister but not keen on idea of rehab however unable to care for her at this time and decision to pursue placement. Monitor for fevers following/discomfort. 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 - trialed Risperdal 0.25mg - has helped, and has tolerated the med and discussed with daughter - increased to 0.5 mg and monitor for any symptoms/drowsiness (refused past 2 nights) --> discussed with daughter 05/19 and changed to solution to help per her request MRI brain without acute or subacute CVA; no ICH, tumor, etc. recent b12/tsh wnl Daughter she states that several months ago the patient was a/o x 3 and living independently . Memory issues 05/15 and repeat UA given recent reyes --> coag neg staph, not saprophytic, sensitive to nitrofurantoin. 00> Switched from keflex to nitro on 05/18 but will change to 100mg BID to complete course (prior ecoli 04/30 pansensitive and had reyes placed for incontinence) Continue empiric thiamine 200mg BID x 1 month - remains stable at this time and answering questions appropriately (3) Parkinsons disease: Plan: Continue with Carbidopa-Levadopa per home dosing --> resumed AM as just fell off JUL last evening --does she have underlying dementia from PD?? MRI brain neg for acute findings -risperdal low dose 0.5mg HS - has helped delirium - continue (refused prior 2 evenings), changed to liquid solution after discussion with daughter 05/19 (4) UTI (urinary tract infection): Plan: -E coli during admission-course of Levaquin completed Reyes since discontinued Repeat Urine cx with coag neg staph, not saprophytic, sensitive to Nitro/Dapto/Vanco --> switched from keflex to Nitrofurantoin 05/18 to complete course. (5) Dysphagia: Plan: -pureed diet -no issues per staff or patient and tolerating well (6) Hypernatremia: Plan: -resolved (7) Hypokalemia: Plan: -resolved (8) Diabetes: Plan: -control is very good at this time -lantus to 8 units from 5 for elevations in days past, continue SSI MOnitor (9) Rhabdomyolysis: Plan: -RESOLVED -found on floor at her home -- likely cause of rhabdo -COVID can also cause rhabdo (10) Pressure injury of back, stage 2: Plan: Present on admission secondary to patient being found down at home Optifoams, frequent turning, etc there is now eschar forming - wound care saw, santyl's added once daily - will need outpatient F/U ([phone]) cont MVI/vit C/zinc/thiamine waffle cushion for comfort, pain control ordered --> reports improvement in discomfort and no need for medication (11) Chronic kidney disease, stage 3a: Plan: baseline CrCl 50s stable (12) Urinary retention: Plan: 2nd to UTI? s/p reyes reinsertion 05/04/21 - kept to try and prevent urine exposure to wound but since removed, has been voiding since T x of UTI as above Plan: will need rehab post-d/c cont PT/OT while inpatient --> ambulating 40' x 2 with rolling walker/contact guard. min assist x 1 and occ assist for walker management. ambulating w/ slow gait, narrow base of support. fatigues but continues to slowly improve case management helping with post-d/c disposition --> patient to receive J&J booster this afternoon 05/19 (as agreed upon by patient and daughter), should help with placement however could be up to 2 weeks before they are willing to accept. Daughter justin (oldest sibling, no POA) about patient to rehab closer to [place] where nursing ratio to patients lower, however discussed if able to find placement closer sooner will need to consider given lack of beds across the [facility]. Admission and Anticipated Discharge Date Admission Date: April 18, 2021 Supervising Physician Co-Signing Physician Notes PA Supervision Note: I did not personally see or examine the patient today, but I verified all bahena points of RAVI Knapp's assessment and plan with the following exceptions/additions: None Subjective patient evaluated this morning getting washed up by [employer] doing well -- knows she is in hospital, that it is the end of april, but thought year was 2012. When stated 2020, she said "oh yeah, that's right". Discussed Dr [facility] Pena office does not have any record of vaccination status (nor POA paperwork) and pharmacy checked database and no evidence she received it their either. She is agreeable to receive today and discussed will monitor for side effects. States unable to get up by herself due to risk for fall. Denies fever, chills, chest pain, shortness of breath, abd pain, nausea or vomiting at this time. Discussed some issues with family dynamics and will need to discuss with children together regarding plan. Updated CM. Daughter called back to express concern about patient not getting her risperidone last two nights and asked if available in solution -- will change. She noted last night when she spoke with her mom she did not know where she was, but that it was dark outside. Review of Systems Review of Systems: All systems reviewed & are unremarkable except as noted in HPI & below Physical Exam Physical Exam: gen - thin, frail, tremor of facial muscles from parkinson's - unchanged; pleasant confusion as previous but is alert to person; knows in hospital, April and stated year 2012 though, although easily re-oriented. sitting up in chair getting washed up head/neck - normocephalic, no JVD, mmm heart - RRR, s1 s2, 1/6 MADELINE LSB, calves non-tender lungs - CTAB, no wheeze/crackles, 96% on RA abd - soft NT ND BS+ ext - no edema, pulses 2+ b/l neuro - tremor of facial muscles, mild tremor of arms (stable) psych - a/o x 2, knows April, today stated 2012 but occasionally is oriented to time Results & Data Results & Data ([facility]) Vital Signs (Past 12 Hours) Vital Signs Temp Pulse Resp BP BP Pulse Ox 05/19/21 07:26 37.1 C 93 H 14 124/74 96 05/18/21 22:35 36.8 C 73 16 105/67 96 Laboratory Results 05/19/21 05/19/21 05/19/21 Range/Units 12:15 08:41 08:41 WBC 5.61 (4.8-10.8) K/uL RBC 3.89 L (4.2-5.4) M/uL Hgb 11.5 L (12.0-16.0) g/dL Hct 36.2 L (37-47) % MCV 93.1 (80-100) fL MCH 29.6 (25-34) pg MCHC 31.8 L (32-36) g/dL RDW Std Deviation 49.6 H (36.4-46.3) fL RDW Coeff of Ilan 14.6 H (11.5-14.5) % Plt Count 345 (130-400) K/uL MPV 9.1 (7.4-10.4) fL Immature Gran % (Auto) 0.2 % Neut % (Auto) 75.2 % Lymph % (Auto) 14.8 % Evangeline % (Auto) 9.4 % Eos % (Auto) 0.2 % Baso % (Auto) 0.2 % Neut # (Auto) 4.22 (1.4-6.5) K/uL Lymph # (Auto) 0.83 L (1.2-3.4) K/uL Evangeline # (Auto) 0.53 (0.11-0.59) K/uL Eos # (Auto) 0.01 (0-0.5) K/uL Baso # (Auto) 0.01 (0-0.2) K/uL Immature Gran # (Auto) 0.01 (0.00-0.02) K/uL Sodium 138 (136-145) mmol/L Potassium 4.4 (3.5-5.1) mmol/L Chloride 104 (98-107) mmol/L Carbon Dioxide 28 (21-32) mmol/L Anion Gap 6.0 (3-11) BUN 14 (7-18) mg/dl Creatinine 0.89 (0.6-1.2) mg/dl Est Cr Clr Drug Dosing 46.9 ml/min Est GFR ( Amer) 71.9 ml/min Est GFR (Non-Af Amer) 62.1 ml/min BUN/Creatinine Ratio 15.6 (10-20) Glucose 253 H (70-99) mg/dl POC Glucose 84 (70-99) mg/dl Calcium 9.2 (8.5-10.1) mg/dl Magnesium 2.2 (1.8-2.4) mg/dl 05/19/21 05/18/21 05/18/21 Range/Units 08:17 20:46 17:01 WBC (4.8-10.8) K/uL RBC (4.2-5.4) M/uL Hgb (12.0-16.0) g/dL Hct (37-47) % MCV (80-100) fL MCH (25-34) pg MCHC (32-36) g/dL RDW Std Deviation (36.4-46.3) fL RDW Coeff of Ilan (11.5-14.5) % Plt Count (130-400) K/uL MPV (7.4-10.4) fL Immature Gran % (Auto) % Neut % (Auto) % Lymph % (Auto) % Evangeline % (Auto) % Eos % (Auto) % Baso % (Auto) % Neut # (Auto) (1.4-6.5) K/uL Lymph # (Auto) (1.2-3.4) K/uL Evangeline # (Auto) (0.11-0.59) K/uL Eos # (Auto) (0-0.5) K/uL Baso # (Auto) (0-0.2) K/uL Immature Gran # (Auto) (0.00-0.02) K/uL Sodium (136-145) mmol/L Potassium (3.5-5.1) mmol/L Chloride (98-107) mmol/L Carbon Dioxide (21-32) mmol/L Anion Gap (3-11) BUN (7-18) mg/dl Creatinine (0.6-1.2) mg/dl Est Cr Clr Drug Dosing ml/min Est GFR ( Amer) ml/min Est GFR (Non-Af Amer) ml/min BUN/Creatinine Ratio (10-20) Glucose (70-99) mg/dl POC Glucose 263 H 203 H 154 H (70-99) mg/dl Calcium (8.5-10.1) mg/dl Magnesium (1.8-2.4) mg/dl PG Care Time/CCT Total # of Minutes Spent Total Time Spent with Patient: Total time spent is greater than 50% in coordination of care (as documented) at patient's floor/unit and/or counseling patient: Prolonged Care Time Prolonged Care Time: Yes 30min additional time spent for multiple calls/coordination with family regarding vaccination as well as visits for discussion with patient Coding Level of Care Code 46506 Subseq Hosp Care Lvl 2 Diagnoses Pneumonia due to COVID-19 virus U07.1; J12.82 Metabolic encephalopathy G93.41 Parkinsons disease G20 UTI (urinary tract infection) N39.0 Dysphagia R13.10 Hypernatremia E87.0 Hypokalemia E87.6 Diabetes E11.9 Rhabdomyolysis M62.82 Pressure injury of back, stage 2 L89.102 Chronic kidney disease, stage 3a N18.31 Urinary retention R33.9 Additional Codes Prolonged Care Time - Prolonged Care Time: Yes ([id number])
[2021-05-19] MEDS: ENOXAPARIN INJ 30 MG/0.3 ML SYR SQ SCH ×2 (08:38→19:24)
[2021-05-19] MEDS: nitrofurantoin macrocrystaL 50 MG CAP PO SCH ×2 (08:39→12:15)
[2021-05-19] MEDS: ASCORBIC ACID 500 MG TAB PO SCH (08:39)
[2021-05-19] MEDS: THIAMINE HCL 100 MG TAB PO SCH ×2 (08:39→19:25)
[2021-05-19] MEDS: ZINC SULFATE 220 MG CAPSULE PO SCH (08:39)
[2021-05-19] MEDS: CEROVITE ADV FORMULA TAB PO SCH (08:39)
[2021-05-19] MEDS: COLLAGENASE OINT 30 GM TUBE EXT SCH (08:39)
[2021-05-19] MEDS: CARBIDOPA/LEVODOPA 25/100MG TAB PO SCH ×4 (08:39→19:25)
[2021-05-19] MEDS: CYANOCOBALAMIN (VITAMIN B-12) 2,500 MCG TAB.SUBL SL SCH (08:39)
[2021-05-19] MEDS: PYRIDOXINE HCL 50 MG TAB PO SCH ×2 (08:39→19:26)
[2021-05-19] MEDS: CHOLECALCIFEROL 1,000 UNITS 25 MCG TAB PO SCH ×2 (08:39→19:25)
[2021-05-19] MEDS: POLYETHYLENE (MIRALAX) 17 GM PACK PO SCH (08:40)
[2021-05-19] MEDS: INSULIN GLARGINE SOLOSTAR 100 UNITS/ML 3 ML PEN SC SCH (08:45)
[2021-05-19] MEDS: INSULIN ASPART PER UNIT SC SCH ×4 (08:45→20:37)
[2021-05-19 08:53] LABS: Basophils # (auto) 0.01 K/uL (0-0.2); Basophils % (auto) 0.2 %; Eosinophils # (auto) 0.01 K/uL (0-0.5); Eosinophils % (auto) 0.2 %; Hematocrit (blood only) 36.2 % (37-47); Hemoglobin 11.5 g/dL (12.0-16.0); Immature Granulocytes # (auto) 0.01 K/uL (0.00-0.02); Immature Granulocytes % (auto) 0.2 %; Lymphocytes # (auto) 0.83 K/uL (1.2-3.4); Lymphocytes % (auto) 14.8 %; Mean Corpuscular Hemoglobin 29.6 pg (25-34); Mean Corpuscular Hgb Conc 31.8 g/dL (32-36); Mean Corpuscular Volume 93.1 fL (80-100); Mean Platelet Volume 9.1 fL (7.4-10.4); Monocytes # (auto) 0.53 K/uL (0.11-0.59); Monocytes % (auto) 9.4 %; Neutrophils # (auto) 4.22 K/uL (1.4-6.5); Neutrophils % (auto) 75.2 %; Platelet Count 345 K/uL (130-400); RDW Coefficient of Variation 14.6 % (11.5-14.5); RDW Standard Deviation 49.6 fL (36.4-46.3); Red Blood Count 3.89 M/uL (4.2-5.4); White Blood Count 5.61 K/uL (4.8-10.8)
[2021-05-19] MEDS ORDERED: CARBIDOPA/LEVODOPA 25/100MG TAB PO SCH (09:00)
[2021-05-19 09:28] LABS: BUN Creatinine Ratio 15.6 (10-20); Calcium 9.2 mg/dl (8.5-10.1); Creatinine Clr Calc Pharmacy 46.9 ml/min; Est GFR (African American) 71.9 ml/min; Est GFR (Non-African American) 62.1 ml/min; Magnesium 2.2 mg/dl (1.8-2.4); Potassium 4.4 mmol/L (3.5-5.1)
[2021-05-19] MEDS ORDERED: COVID-19 VAC,AD26(JANSSEN)/PF 0.5 ML SYR IM ONE (12:00)
[2021-05-19 17:46] LABS: Lyme Ab IgG w/WB Rflx Negative (Negative); Lyme Ab IgM w/WB Rflx Negative (Negative)
[2021-05-19] MEDS: risperiDONE 1 MG/ML SOLUTION PO SCH (19:25)
[2021-05-19] MEDS: NITROFURANTOIN MONOHYDRATE 100 MG CAP PO SCH (21:42)
[2021-05-20] MEDS: ASCORBIC ACID 500 MG TAB PO SCH (08:07)
[2021-05-20] MEDS: CHOLECALCIFEROL 1,000 UNITS 25 MCG TAB PO SCH ×2 (08:08→20:22)
[2021-05-20] MEDS: ENOXAPARIN INJ 30 MG/0.3 ML SYR SQ SCH ×2 (08:09→20:23)
[2021-05-20] MEDS: COLLAGENASE OINT 30 GM TUBE EXT SCH (08:09)
[2021-05-20] MEDS: CYANOCOBALAMIN (VITAMIN B-12) 2,500 MCG TAB.SUBL SL SCH (08:09)
[2021-05-20] MEDS: PYRIDOXINE HCL 50 MG TAB PO SCH ×2 (08:10→20:24)
[2021-05-20] MEDS: POLYETHYLENE (MIRALAX) 17 GM PACK PO SCH (08:10)
[2021-05-20] MEDS: CEROVITE ADV FORMULA TAB PO SCH (08:10)
[2021-05-20] MEDS: NITROFURANTOIN MONOHYDRATE 100 MG CAP PO SCH ×2 (08:10→20:21)
[2021-05-20] MEDS: THIAMINE HCL 100 MG TAB PO SCH ×2 (08:11→20:21)
[2021-05-20] MEDS: ZINC SULFATE 220 MG CAPSULE PO SCH (08:11)
[2021-05-20] MEDS: lisinopril 10 MG TAB PO SCH (08:24)
--- NOTE | 2021-05-20 08:24 | Hospitalist Progress Note ---
Date of Service May 20, 2021 Assessment & Plan (1) Pneumonia due to COVID-19 virus: Plan: clinically resolved - NC O2 weaned off 05/03/21 and stable in RA since - s/p 10 day course of dexamethasone - no symptoms at this time 95% on RA Regarding inpatient vaccination status for placement: Patient agreeable to receiving J&J booster as well, but wanted me to also discuss with her daughter. Patient and daughter agreeable to J&J booster to assist in search for bed placement/SNF. Daughter initially thought patient was "clear" and by that she thought mother tested negative for COVID to be taken off of precautions. Discussed that only on isolation for certain number of days and could test positive for several months, and that SNF are requiring patients to be vaccinated at many facilities. Ordered J&J for 05/18 but then patient thought possibly she did have in past -- checked with pharmacy/database and had call to [facility] office and patient never had documentation of receiving this. --> Alerted CM of booster for 05/19, and hopefully will assist with placement. Daughter adrienne oldest and making decisions. Son on board with patient being too much at home per sister but not keen on idea of rehab however unable to care for her at this time and decision to pursue placement. Monitor for fevers following/discomfort. Tylenol available prn pain/fever (2) Dizziness: Plan: Admitted when found down at home, + COVID as above and completed treatment Question of syncope at home, and + murmur on examination without ECHO having been performed as ordered on admission No focal deficit concerning for CVA, sounds more like orthostatic hypotension vs BPPV Having RN check orthostatics --> +. Providing NSS 500cc bolus. Continue to monitor Meclizine 12.5mg available as needed for possible vertigo ECHO pending for further evaluation of valvular dysfunction Continue to monitor (3) Metabolic encephalopathy: Plan: suspect due to COVID encephalopathy, hospital psychosis, UTI, etc. - trialed Risperdal 0.25mg - has helped, and has tolerated the med and discussed with daughter - increased to 0.5 mg and monitor for any symptoms/drowsiness (refused past 2 nights) --> discussed with daughter 05/19 and changed to solution to help per her request MRI brain without acute or subacute CVA; no ICH, tumor, etc. recent b12/tsh wnl Daughter she states that several months ago the patient was a/o x 3 and living independently . Memory issues 05/15 and repeat UA given recent reyes --> coag neg staph, not saprophytic, sensitive to nitrofurantoin. --> Switched from keflex to nitro on 05/18 --> remains on 100mg BID to complete course, would be finished after AM dose on 05/24 Continue empiric thiamine 200mg BID x 1 month - remains stable at this time and answering questions appropriately Per daughter, would like to discuss eval by psych later in the week once UTI resolved. Concerns with depression/lack of interest at home over past couple of months. Concerns about weight loss at home --> discussed could try mirtazepine to help with sleep/mood/appetite but would hold off at current moment to not start addit ional medication that could interact with others and will consider later in the week, as patient likely to remain inpatient xx 2 weeks post booster until SNF able to take (on going search) (4) Parkinsons disease: Plan: Continue with Carbidopa-Levadopa per home dosing --> resumed AM as just fell off MAR last evening --does she have underlying dementia from PD?? MRI brain neg for acute findings -risperdal low dose 0.5mg HS - has helped delirium - continue (refused prior 2 evenings), changed to liquid solution after discussion with daughter 05/19 and she did take last evening and appeared more rested today (5) UTI (urinary tract infection): Plan: -E coli during admission-course of Levaquin completed Reyes since discontinued Repeat Urine cx with coag neg staph, not saprophytic, sensitive to Nitro/Dapto/Vanco --> switched from keflex to Nitrofurantoin 05/18 to complete course 05/24 (6) Dysphagia: Plan: -pureed diet -no issues per staff or patient and tolerating well (7) Hypernatremia: Plan: -resolved (8) Hypokalemia: Plan: -resolved (9) Diabetes: Plan: -lantus to 8 units from 5 for elevations in days past, continue SSI improvement in BSGs MOnitor (10) Rhabdomyolysis: Plan: -RESOLVED -found on floor at her home -- likely cause of rhabdo -COVID can also cause rhabdo (11) Pressure injury of back, stage 2: Plan: Present on admission secondary to patient being found down at home Optifoams, frequent turning, etc wound care saw, narda's added once daily - will need outpatient F/U ([phone]) cont MVI/vit C/zinc/thiamine waffle cushion for comfort, pain control ordered --> reports improvement in discomfort and no need for medication outside of occasional tylenol (12) Chronic kidney disease, stage 3a: Plan: baseline CrCl 50s stable (13) Urinary retention: Plan: 2nd to UTI? s/p reyes reinsertion 05/04/21 - kept to try and prevent urine exposure to wound but since removed, has been voiding since T x of UTI as above Plan: will need rehab post-d/c cont PT/OT while inpatient --> ambulating 40' x 2 with rolling walker/contact guard. min assist x 1 and occ assist for walker management. ambulating w/ slow gait, narrow base of support. fatigues but continues to slowly improve case management helping with post-d/c disposition --> patient received J&J booster 05/19 (as agreed upon by patient and daughter), should help with placement however could be up to 2 weeks before they are willing to accept. Daughter adamant (oldest sibling, no POA) about patient to rehab closer to [place] where nursing ratio to patients lower, however discussed if able to find placement closer sooner will need to consider given lack of beds across the [facility]. Admission and Anticipated Discharge Date Admission Date: April 18, 2021 Subjective patient evaluated this morning had episode of dizziness this morning with positional changes. feels like the room is spinning when she got up. Discussed will have RN check orthostatics and if + will provide IVF. Patient states she has been drinking/eating without issue. Denies headache or decreased vision, but just feels like the room is spinning. Will order dose of meclizine -- dose x 1 now. She states when she gets up to walk she does have periods where she feels like she may pass out. Discussed echo ordered on admission and repeat ordered for today to eval for aortic stenosis/valvular dysfunction. No fever, chills, chest pain, shortness of breath (except with exertion of distances), abdominal pain, nausea or vomiting at this time. Got her J&J vaccine yesterday and discussed could be reaction to that. No carotid bruits on exam or known carotid stenosis. Review of Systems Review of Systems: All systems reviewed & are unremarkable except as noted in HPI & below Physical Exam Physical Exam: gen - thin, frail, tremor of facial muscles from parkinson's - unchanged; pleasant confusion as previous but is alert to person; knows in hospital, April and stated year 2012 though, although easily re-oriented. sitting up in chair getting washed up eyes- pupils equal and reactive, no nystagmus, EOMI, visual grande normal by controntation head/neck - normocephalic, no JVD, dry mm heart - RRR, s1 s2, 1/6 MADELINE LSB, calves non-tender lungs - CTAB, no wheeze/crackles, 95% on RA abd - soft NT ND BS+ ext - no edema, pulses 2+ b/l neuro - tremor of facial muscles, mild tremor of arms (stable) psych - a/o x 2, occassionally oriented to time (appears better today, but complaints of dizziness) Results & Data Results & Data ([facility]) Vital Signs (Past 12 Hours) Vital Signs Temp Pulse Resp BP Pulse Ox 05/20/21 07:39 36.7 C 86 16 131/76 95 05/19/21 23:21 36.5 C 94 H 16 107/61 95 Laboratory Results 05/20/21 05/19/21 05/19/21 Range/Units 08:08 20:36 17:05 WBC (4.8-10.8) K/uL RBC (4.2-5.4) M/uL Hgb (12.0-16.0) g/dL Hct (37-47) % MCV (80-100) fL MCH (25-34) pg MCHC (32-36) g/dL RDW Std Deviation (36.4-46.3) fL RDW Coeff of Ilan (11.5-14.5) % Plt Count (130-400) K/uL MPV (7.4-10.4) fL Immature Gran % (Auto) % Neut % (Auto) % Lymph % (Auto) % [place] % (Auto) % Eos % (Auto) % Baso % (Auto) % Neut # (Auto) (1.4-6.5) K/uL Lymph # (Auto) (1.2-3.4) K/uL [place] # (Auto) (0.11-0.59) K/uL Eos # (Auto) (0-0.5) K/uL Baso # (Auto) (0-0.2) K/uL Immature Gran # (Auto) (0.00-0.02) K/uL Sodium (136-145) mmol/L Potassium (3.5-5.1) mmol/L Chloride (98-107) mmol/L Carbon Dioxide (21-32) mmol/L Anion Gap (3-11) BUN (7-18) mg/dl Creatinine (0.6-1.2) mg/dl Est Cr Clr Drug Dosing ml/min Est GFR ( Amer) ml/min Est GFR (Non-Af Amer) ml/min BUN/Creatinine Ratio (10-20) Glucose (70-99) mg/dl POC Glucose 180 H 144 H 76 (70-99) mg/dl Calcium (8.5-10.1) mg/dl Magnesium (1.8-2.4) mg/dl Ammonia (11-32) umol/L Lyme Disease IgG Ab (Negative) Lyme Disease IgM Ab (Negative) 05/19/21 05/19/21 05/19/21 Range/Units 16:44 16:44 12:15 WBC (4.8-10.8) K/uL RBC (4.2-5.4) M/uL Hgb (12.0-16.0) g/dL Hct (37-47) % MCV (80-100) fL MCH (25-34) pg MCHC (32-36) g/dL RDW Std Deviation (36.4-46.3) fL RDW Coeff of Ilan (11.5-14.5) % Plt Count (130-400) K/uL MPV (7.4-10.4) fL Immature Gran % (Auto) % Neut % (Auto) % Lymph % (Auto) % [place] % (Auto) % Eos % (Auto) % Baso % (Auto) % Neut # (Auto) (1.4-6.5) K/uL Lymph # (Auto) (1.2-3.4) K/uL [place] # (Auto) (0.11-0.59) K/uL Eos # (Auto) (0-0.5) K/uL Baso # (Auto) (0-0.2) K/uL Immature Gran # (Auto) (0.00-0.02) K/uL Sodium (136-145) mmol/L Potassium (3.5-5.1) mmol/L Chloride (98-107) mmol/L Carbon Dioxide (21-32) mmol/L Anion Gap (3-11) BUN (7-18) mg/dl Creatinine (0.6-1.2) mg/dl Est Cr Clr Drug Dosing ml/min Est GFR ( Amer) ml/min Est GFR (Non-Af Amer) ml/min BUN/Creatinine Ratio (10-20) Glucose (70-99) mg/dl POC Glucose 84 (70-99) mg/dl Calcium (8.5-10.1) mg/dl Magnesium (1.8-2.4) mg/dl Ammonia < 10.0 L (11-32) umol/L Lyme Disease IgG Ab Negative (Negative) Lyme Disease IgM Ab Negative (Negative) 05/19/21 05/19/21 Range/Units 08:41 08:41 WBC 5.61 (4.8-10.8) K/uL RBC 3.89 L (4.2-5.4) M/uL Hgb 11.5 L (12.0-16.0) g/dL Hct 36.2 L (37-47) % MCV 93.1 (80-100) fL MCH 29.6 (25-34) pg MCHC 31.8 L (32-36) g/dL RDW Std Deviation 49.6 H (36.4-46.3) fL RDW Coeff of Ilan 14.6 H (11.5-14.5) % Plt Count 345 (130-400) K/uL MPV 9.1 (7.4-10.4) fL Immature Gran % (Auto) 0.2 % Neut % (Auto) 75.2 % Lymph % (Auto) 14.8 % [place] % (Auto) 9.4 % Eos % (Auto) 0.2 % Baso % (Auto) 0.2 % Neut # (Auto) 4.22 (1.4-6.5) K/uL Lymph # (Auto) 0.83 L (1.2-3.4) K/uL [place] # (Auto) 0.53 (0.11-0.59) K/uL Eos # (Auto) 0.01 (0-0.5) K/uL Baso # (Auto) 0.01 (0-0.2) K/uL Immature Gran # (Auto) 0.01 (0.00-0.02) K/uL Sodium 138 (136-145) mmol/L Potassium 4.4 (3.5-5.1) mmol/L Chloride 104 (98-107) mmol/L Carbon Dioxide 28 (21-32) mmol/L Anion Gap 6.0 (3-11) BUN 14 (7-18) mg/dl Creatinine 0.89 (0.6-1.2) mg/dl Est Cr Clr Drug Dosing 46.9 ml/min Est GFR ( Amer) 71.9 ml/min Est GFR (Non-Af Amer) 62.1 ml/min BUN/Creatinine Ratio 15.6 (10-20) Glucose 253 H (70-99) mg/dl POC Glucose (70-99) mg/dl Calcium 9.2 (8.5-10.1) mg/dl Magnesium 2.2 (1.8-2.4) mg/dl Ammonia (11-32) umol/L Lyme Disease IgG Ab (Negative) Lyme Disease IgM Ab (Negative) PG Care Time/CCT Total # of Minutes Spent Total Time Spent with Patient: Total time spent is greater than 50% in coordination of care (as documented) at patient's floor/unit and/or counseling patient: Coding Level of Care Code 46882 Subseq Hosp Care Lvl 2 Diagnoses Pneumonia due to COVID-19 virus U07.1; J12.82 Metabolic encephalopathy G93.41 Parkinsons disease G20 UTI (urinary tract infection) N39.0 Dysphagia R13.10 Hypernatremia E87.0 Hypokalemia E87.6 Diabetes E11.9 Rhabdomyolysis M62.82 Pressure injury of back, stage 2 L89.102 Chronic kidney disease, stage 3a N18.31 Urinary retention R33.9 Dizziness R42
[2021-05-20] MEDS: CARBIDOPA/LEVODOPA 25/100MG TAB PO SCH ×4 (09:09→20:23)
[2021-05-20] MEDS: INSULIN GLARGINE SOLOSTAR 100 UNITS/ML 3 ML PEN SC SCH (09:09)
[2021-05-20] MEDS: INSULIN ASPART PER UNIT SC SCH ×4 (09:10→20:32)
[2021-05-20] MEDS ORDERED: SODIUM CHLORIDE 0.9% 500 ML IV SCH (11:45)
[2021-05-20] MEDS: MECLIZINE 12.5 MG TAB PO PRN (14:01)
--- NOTE | 2021-05-20 14:51 | XCELERA ---
[id number]
[2021-05-20] MEDS: ACETAMINOPHEN 325 MG TAB PO PRN (16:40)
--- NOTE | 2021-05-20 17:29 | CT Scan Report ---
CT OF THE HEAD WITHOUT CONTRAST CLINICAL HISTORY: fall, trauma COMPARISON STUDY: Head CT April 18, 2021 and MRI of the brain May 07, 2021. CT DOSE: 537.48 mGy.cm TECHNIQUE: Helical axial images of the head were obtained without IV contrast. Automated exposure con trol was utilized for the study. A dose lowering technique was utilized adhering to the principles o f ALARA. FINDINGS: No acute intracranial hemorrhage, midline shift or mass effect is present. Ventricular syst em is unremarkable. Basal cisterns are patent. There are no extra axial collections. White matter hyp odensities are unchanged and suggest small vessel disease. No calvarial fracture is identified. Surgi danny clips anterior to the left ear are incidentally noted. IMPRESSION: 1. No acute intracranial findings. 2. No calvarial fracture. ACT 112: Negative or not required by law. Electronically signed by: Goran Costello M.D. 05/20/2021 5:28 PM
--- NOTE | 2021-05-20 17:46 | XRay Report ---
XR hip RT 2V w pelvis CLINICAL HISTORY: s/p fall, R hip pain COMPARISON: Pelvis radiograph April 18, 2021. FINDINGS: Sacroiliac joints and symphysis pubis are intact. No acute fracture within the pelvis or h ips is identified. The joint spaces are preserved. There is mild osteophytosis of both hips. IMPRESSION: No acute fracture within the pelvis or hips. ACT 112: Negative or not required by law. Electronically signed by: Goran Costello M.D. 05/20/2021 5:44 PM
--- NOTE | 2021-05-20 17:47 | XRay Report ---
XR knee RT 1 or 2V routine CLINICAL HISTORY: fall, knee pain COMPARISON: None FINDINGS: Alignment of the right knee is anatomic. No acute fracture is noted. No evidence for joint effusion. There is moderate medial compartment osteoarthritis of the right knee with joint space rodrick rowing and osteophytosis. IMPRESSION: 1. No acute fracture or joint effusion of the right knee. 2. Moderate medial compartment osteoarthritis of the right knee. ACT 112: Negative or not required by law. Electronically signed by: Goran Costello M.D. 05/20/2021 5:45 PM
--- NOTE | 2021-05-20 17:52 | XRay Report ---
XR wrist RT min 3V routine CLINICAL HISTORY: fall, wrist pain COMPARISON: None FINDINGS: Right forearm IV is incidentally noted. No acute fracture within the right wrist is identi fied. Exam is mildly compromised given difficulty positioning. Mild osteoarthritis within several art iculations of the right wrist is noted. IMPRESSION: No acute fracture or dislocation within the right wrist. ACT 112: Negative or not required by law. Electronically signed by: Goran Costello M.D. 05/20/2021 5:51 PM
[2021-05-20] MEDS: risperiDONE 1 MG/ML SOLUTION PO SCH (20:22)
[2021-05-21 07:50] LABS: Eosinophils # (auto) 0.01 K/uL (0-0.5); Eosinophils % (auto) 0.2 %; Hematocrit (blood only) 32.3 % (37-47); Hemoglobin 10.2 g/dL (12.0-16.0); Immature Granulocytes # (auto) 0.01 K/uL (0.00-0.02); Immature Granulocytes % (auto) 0.2 %; Lymphocytes # (auto) 1.07 K/uL (1.2-3.4); Lymphocytes % (auto) 20.4 %; Mean Corpuscular Hemoglobin 28.9 pg (25-34); Mean Corpuscular Hgb Conc 31.6 g/dL (32-36); Mean Corpuscular Volume 91.5 fL (80-100); Monocytes # (auto) 0.62 K/uL (0.11-0.59); Monocytes % (auto) 11.8 %; Neutrophils # (auto) 3.54 K/uL (1.4-6.5); Neutrophils % (auto) 67.4 %; Platelet Count 328 K/uL (130-400); RDW Coefficient of Variation 14.6 % (11.5-14.5); RDW Standard Deviation 48.8 fL (36.4-46.3); Red Blood Count 3.53 M/uL (4.2-5.4); White Blood Count 5.25 K/uL (4.8-10.8)
[2021-05-21] MEDS: COLLAGENASE OINT 30 GM TUBE EXT SCH (07:57)
[2021-05-21] MEDS: ASCORBIC ACID 500 MG TAB PO SCH (07:58)
[2021-05-21] MEDS: lisinopril 10 MG TAB PO SCH (07:58)
[2021-05-21] MEDS: ZINC SULFATE 220 MG CAPSULE PO SCH (07:58)
[2021-05-21] MEDS: CYANOCOBALAMIN (VITAMIN B-12) 2,500 MCG TAB.SUBL SL SCH (07:58)
[2021-05-21] MEDS: CEROVITE ADV FORMULA TAB PO SCH (07:58)
[2021-05-21] MEDS: CARBIDOPA/LEVODOPA 25/100MG TAB PO SCH ×4 (07:58→20:38)
[2021-05-21] MEDS: PYRIDOXINE HCL 50 MG TAB PO SCH ×2 (07:59→20:41)
[2021-05-21] MEDS: CHOLECALCIFEROL 1,000 UNITS 25 MCG TAB PO SCH ×2 (07:59→20:38)
[2021-05-21] MEDS: NITROFURANTOIN MONOHYDRATE 100 MG CAP PO SCH ×2 (07:59→20:39)
[2021-05-21] MEDS: ENOXAPARIN INJ 30 MG/0.3 ML SYR SQ SCH ×2 (07:59→20:39)
[2021-05-21] MEDS: POLYETHYLENE (MIRALAX) 17 GM PACK PO SCH (08:01)
[2021-05-21 08:18] LABS: Calcium 8.6 mg/dl (8.5-10.1); Creatinine Clr Calc Pharmacy 57.2 ml/min; Est GFR (African American) 91.4 ml/min; Est GFR (Non-African American) 78.9 ml/min; Potassium 3.9 mmol/L (3.5-5.1)
--- NOTE | 2021-05-21 08:23 | Hospitalist Progress Note ---
Date of Service May 21, 2021 Assessment & Plan (1) Pneumonia due to COVID-19 virus: Plan: clinically resolved - NC O2 weaned off 05/03/21 and stable in RA since - s/p 10 day course of dexamethasone - no symptoms at this time 94% on RA Regarding inpatient vaccination status for placement: Patient agreeable to receiving J&J booster as well, but wanted me to also discuss with her daughter. Patient and daughter agreeable to J&J booster to assist in search for bed placement/SNF. Daughter initially thought patient was "clear" and by that she thought mother tested negative for COVID to be taken off of precautions. Discussed that only on isolation for certain number of days and could test positive for several months, and that SNF are requiring patients to be vaccinated at many facilities. Ordered J&J for 05/18 but then patient thought possibly she did have in past -- checked with pharmacy/database and had call to [facility] office and patient never had documentation of receiving this. --> Alerted CM of booster for 05/19, and hopefully will assist with placement. Daughter aline oldest and making decisions. Son on board with patient being too much at home per sister but not keen on idea of rehab however unable to care for her at this time and decision to pursue placement. Monitor for fevers following/discomfort. Tylenol available prn pain/fever Did have a fall evening 05/20 and hit her head --> CT negative for acute process. Fell and caught herself with R hand/knee and imaging all negative for acute fractures --> Tylenol for pain, also ordered topical voltaren as needed as well Updated daughter Aline of fall, bed alarm was not turned back on when aide assisted back to bed from bathroom (patient states that is her reminder "the greenberg" that she needs to wait for help to get up) Additional facilities provided by son and discussed with Aline who will review them as well, and patient already on list for 2 of the 5 facilities (2) Dizziness: Plan: Admitted when found down at home, + COVID as above and completed treatment Question of syncope at home, and + murmur on examination without ECHO having been performed as ordered on admission No focal deficit concerning for CVA, sounds more like orthostatic hypotension vs BPPV --> given 500cc NSS and no further dizziness reported Unfortunately had fall as bed alarm not turned on last evening --> CT head negat kathrin as above Meclizine available prn ECHO without significant valvular dysfunction --> done as reported down prior to admission and felt syncopal Continue to monitor (3) Metabolic encephalopathy: Plan: suspect due to COVID encephalopathy, hospital psychosis, UTI, etc. - trialed Risperdal 0.25mg - has helped, and has tolerated the med and discussed with daughter - increased to 0.5 mg and monitor for any symptoms/drowsiness (refused the previous 2 nights before switching to oral solution per discussion with daughter 05/19 and since she has recevied) MRI brain without acute or subacute CVA; no ICH, tumor, etc. recent b12/tsh wnl Daughter she states that several months ago the patient was a/o x 3 and living independently . Memory issues 05/15 and repeat UA given recent reyes --> coag neg staph, not saprophytic, sensitive to nitrofurantoin. --> Switched from keflex to nitro on 05/18 --> remains on 100mg BID to complete course, would be finished after AM dose on 05/24 Continue empiric thiamine 200mg BID x 1 month - remains stable at this time and answering questions appropriately Per daughter, would like to discuss eval by psych later in the week once UTI resolved. Concerns with depression/lack of interest at home over past couple of months. Concerns about weight loss at home --> discussed could try mirtazapine to help with sleep/mood/appetite but would hold off at current moment to not start additional medication that could interact with others and will consider later in the week, as patient likely to remain inpatient xx 2 weeks post booster until SNF able to take (on going search) Crystal would like to consider remeron once completed with abx (4) Parkinsons disease: Plan: Continue with Carbidopa-Levadopa per home dosing --> resumed AM as just fell off MAR last evening --does she have underlying dementia from PD?? MRI brain neg for acute findings -risperdal low dose 0.5mg HS - has helped delirium - continue (refused prior 2 evenings), changed to liquid solution after discussion with daughter 05/19 and she did take last evening and appeared more rested today but RN did note did have some agitation overnight but was able to be calmed down by staff (5) UTI (urinary tract infection): Plan: -E coli during admission-course of Levaquin completed Reyes since discontinued Repeat Urine cx with coag neg staph, not saprophytic, sensitive to Nitro/Dapto/V anco --> switched from keflex to Nitrofurantoin 05/18 to complete course 05/24 (6) Dysphagia: Plan: -pureed diet -no issues per staff or patient and tolerating well son also brought dentures 05/20, which will also help and could consider advancing diet if tolerated (7) Hypernatremia: Plan: resolved (8) Hypokalemia: Plan: -resolved (9) Diabetes: Plan: -lantus to 8 units from 5 for elevations in days past, continue SSI improvement in BSGs and will continue current regimen and monitor (10) Rhabdomyolysis: Plan: -RESOLVED -found on floor at her home -- likely cause of rhabdo -COVID can also cause rhabdo (11) Pressure injury of back, stage 2: Plan: Present on admission secondary to patient being found down at home Optifoams, frequent turning, etc wound care saw, narda's added once daily - will need outpatient F/U ([phone]) cont MVI/vit C/zinc/thiamine waffle cushion for comfort, pain control ordered --> reports improvement in discomfort and no need for medication outside of occasional tylenol (12) Chronic kidney disease, stage 3a: Plan: baseline CrCl 50s stable (13) Urinary retention: Plan: 2nd to UTI? s/p reyes reinsertion 05/04/21 - kept to try and prevent urine exposure to wound but since removed, has been voiding since T x of UTI as above Plan: will need rehab post-d/c cont PT/OT while inpatient --> ambulating 40' x 2 with rolling walker/contact guard. min assist x 1 and occ assist for walker management. ambulating w/ slow gait, narrow base of support. fatigues but continues to slowly improve case management helping with post-d/c disposition --> patient received J&J booster 05/19 (as agreed upon by patient and daughter), should help with placement however could be up to 2 weeks before they are willing to accept. Daughter adamant (oldest sibling, no POA) about patient to rehab closer to [place] where nursing ratio to patients lower, however discussed if able to find placement closer sooner will need to consider given lack of beds across the state. Son also provided additional facilities 05/20 which were relayed to CM and referrals sent Admission and Anticipated Discharge Date Admission Date: April 18, 2021 Subjective patient evaluated this morning doing better --- April, in hospital but unknown name. states she wants to be local for rehab so she can see her grand-babies. some pain to head where she fell last night and some pain to wrist/knee. Discussed mauro solo order. Tylenol pretty effective at pain control. no fever, chills, chest pain, shortness of breath, abd pain. Eating/drinking no issue. No further dizziness reported. Review of Systems Review of Systems: All systems reviewed & are unremarkable except as noted in HPI & below Physical Exam Physical Exam: gen - thin, frail, tremor of facial muscles from parkinson's - unchanged; pleasant confusion as previous but is alert to person; knows in hospital, April and stated year 2020, although easily re-oriented. sitting up in chair eating breakfast head with eccymosis small hematoma to right lateral forehead, tender to palpation eyes- pupils equal and reactive, no nystagmus, EOMI, visual grnade normal by confrontation head/neck - normocephalic, no JVD, mmm heart - RRR, s1 s2, 1/6 MADELINE LSB, calves non-tender lungs - CTAB, no wheeze/crackles, 45% on RA abd - soft NT ND BS+ ext - no edema, pulses 2+ b/l, some effusion/ecchymosis to medial R knee neuro - tremor of facial muscles, mild tremor of arms (stable) psych - a/o x 2, occasionally oriented to time (appears better today), stating she wants to be in rehab close to home Results & Data Results & Data ([facility]) Vital Signs (Past 12 Hours) Vital Signs Temp Pulse Resp BP Pulse Ox 05/21/21 07:38 36.8 C 83 17 114/69 92 05/20/21 23:01 36.7 C 88 18 101/62 93 Laboratory Results 05/21/21 05/21/21 05/21/21 Range/Units 07:57 07:28 07:28 WBC 5.25 (4.8-10.8) K/uL RBC 3.53 L (4.2-5.4) M/uL Hgb 10.2 L (12.0-16.0) g/dL Hct 32.3 L (37-47) % MCV 91.5 (80-100) fL MCH 28.9 (25-34) pg MCHC 31.6 L (32-36) g/dL RDW Std Deviation 48.8 H (36.4-46.3) fL RDW Coeff of Ilan 14.6 H (11.5-14.5) % Plt Count 328 (130-400) K/uL MPV 9.0 (7.4-10.4) fL Immature Gran % (Auto) 0.2 % Neut % (Auto) 67.4 % Lymph % (Auto) 20.4 % Shackelford % (Auto) 11.8 % Eos % (Auto) 0.2 % Baso % (Auto) 0.0 % Neut # (Auto) 3.54 (1.4-6.5) K/uL Lymph # (Auto) 1.07 L (1.2-3.4) K/uL [place]ord # (Auto) 0.62 H (0.11-0.59) K/uL Eos # (Auto) 0.01 (0-0.5) K/uL Baso # (Auto) 0.00 (0-0.2) K/uL Immature Gran # (Auto) 0.01 (0.00-0.02) K/uL Sodium 138 (136-145) mmol/L Potassium 3.9 (3.5-5.1) mmol/L Chloride 106 (98-107) mmol/L Carbon Dioxide 26 (21-32) mmol/L Anion Gap 6.0 (3-11) BUN 14 (7-18) mg/dl Creatinine 0.73 (0.6-1.2) mg/dl Est Cr Clr Drug Dosing 57.2 ml/min Est GFR ( Amer) 91.4 ml/min Est GFR (Non-Af Amer) 78.9 ml/min BUN/Creatinine Ratio 19.0 (10-20) Glucose 151 H (70-99) mg/dl POC Glucose 152 H (70-99) mg/dl Calcium 8.6 (8.5-10.1) mg/dl 1205/20/21 05/20/21 Range/Units 20:32 17:36 12:02 WBC (4.8-10.8) K/uL RBC (4.2-5.4) M/uL Hgb (12.0-16.0) g/dL Hct (37-47) % MCV (80-100) fL MCH (25-34) pg MCHC (32-36) g/dL RDW Std Deviation (36.4-46.3) fL RDW Coeff of Ilan (11.5-14.5) % Plt Count (130-400) K/uL MPV (7.4-10.4) fL Immature Gran % (Auto) % Neut % (Auto) % Lymph % (Auto) % Shackelford % (Auto) % Eos % (Auto) % Baso % (Auto) % Neut # (Auto) (1.4-6.5) K/uL Lymph # (Auto) (1.2-3.4) K/uL [place]elford # (Auto) (0.11-0.59) K/uL Eos # (Auto) (0-0.5) K/uL Baso # (Auto) (0-0.2) K/uL Immature Gran # (Auto) (0.00-0.02) K/uL Sodium (136-145) mmol/L Potassium (3.5-5.1) mmol/L Chloride (98-107) mmol/L Carbon Dioxide (21-32) mmol/L Anion Gap (3-11) BUN (7-18) mg/dl Creatinine (0.6-1.2) mg/dl Est Cr Clr Drug Dosing ml/min Est GFR ( Amer) ml/min Est GFR (Non-Af Amer) ml/min BUN/Creatinine Ratio (10-20) Glucose (70-99) mg/dl POC Glucose 125 H 126 H 127 H (70-99) mg/dl Calcium (8.5-10.1) mg/dl Diagnostic Findings Head CT 05/20/21 16:40 CT OF THE HEAD WITHOUT CONTRAST CLINICAL HISTORY: fall, trauma COMPARISON STUDY: Head CT April 18, 2021 and MRI of the brain May 07, 2021. CT DOSE: 537.48 mGy.cm TECHNIQUE: Helical axial images of the head were obtained without IV contrast. Automated exposure control was utilized for the study. A dose lowering technique was utilized adhering to the principles of ALARA. FINDINGS: No acute intracranial hemorrhage, midline shift or mass effect is present. Ventricular system is unremarkable. Basal cisterns are patent. There are no extra axial collections. White matter hypodensities are unchanged and suggest small vessel disease. No calvarial fracture is identified. Surgical clips anterior to the left ear are incidentally noted. IMPRESSION: 1. No acute intracranial findings. 2. No calvarial fracture. ACT 112: Negative or not required by law. Electronically signed by: Goran Costello M.D. 05/20/2021 5:28 PM Hip/Pelvis X-Ray 05/20/21 16:40 XR hip RT 2V w pelvis CLINICAL HISTORY: s/p fall, R hip pain COMPARISON: Pelvis radiograph April 18, 2021. FINDINGS: Sacroiliac joints and symphysis pubis are intact. No acute fracture within the pelvis or hips is identified. The joint spaces are preserved. There is mild osteophytosis of both hips. IMPRESSION: No acute fracture within the pelvis or hips. ACT 112: Negative or not required by law. Electronically signed by: Goran Costello M.D. 05/20/2021 5:44 PM Knee X-Ray 05/20/21 16:40 XR knee RT 1 or 2V routine CLINICAL HISTORY: fall, knee pain COMPARISON: None FINDINGS: Alignment of the right knee is anatomic. No acute fracture is noted. No evidence for joint effusion. There is moderate medial compartment osteoarthritis of the right knee with joint space narrowing and osteophytosis. IMPRESSION: 1. No acute fracture or joint effusion of the right knee. 2. Moderate medial compartment osteoarthritis of the right knee. ACT 112: Negative or not required by law. Electronically signed by: Goran Costello M.D. 05/20/2021 5:45 PM Wrist X-Ray 05/20/21 16:40 XR wrist RT min 3V routine CLINICAL HISTORY: fall, wrist pain COMPARISON: None FINDINGS: Right forearm IV is incidentally noted. No acute fracture within the right wrist is identified. Exam is mildly compromised given difficulty positioning. Mild osteoarthritis within several articulations of the right wrist is noted. IMPRESSION: No acute fracture or dislocation within the right wrist. ACT 112: Negative or not required by law. Electronically signed by: Goran Costello M.D. 05/20/2021 5:51 PM PG Care Time/CCT Total # of Minutes Spent Total Time Spent with Patient: Total time spent is greater than 50% in coordination of care (as documented) at patient's floor/unit and/or counseling patient: Coding Level of Care Code 95404 Subseq Hosp Care Lvl 3 Diagnoses Pneumonia due to COVID-19 virus U07.1; J12.82 Dizziness R42 Metabolic encephalopathy G93.41 Parkinsons disease G20 UTI (urinary tract infection) N39.0 Dysphagia R13.10 Hypernatremia E87.0 Hypokalemia E87.6 Diabetes E11.9 Rhabdomyolysis M62.82 Pressure injury of back, stage 2 L89.102 Chronic kidney disease, stage 3a N18.31 Urinary retention R33.9
--- NOTE | 2021-05-21 09:17 | XRay Report ---
SINGLE VIEW CHEST CLINICAL HISTORY: Fall. FINDINGS: 2 AP, portable, upright chest radiographs are compared to study dated 04/30/2021. The cardio mediastinal silhouette is unremarkable noting atherosclerotic calcification of the thoracic aorta. Th ere are calcified hilar nodes. There is mild chronic elevation of the right hemidiaphragm with foci o f scarring/atelectasis seen throughout both lungs. No airspace consolidation typical for pneumonia or large pleural effusion is identified. Calcified granulomas are noted on the left. No pneumothorax is seen. The skeletal structures are osteopenic. The bony thorax is grossly intact. IMPRESSION: No acute cardiopulmonary abnormality. ACT 112: Negative or not required by law. Electronically signed by: Edy Jett M.D. 05/21/2021 9:15 AM
[2021-05-21] MEDS: INSULIN ASPART PER UNIT SC SCH ×4 (09:53→20:39)
[2021-05-21] MEDS: INSULIN GLARGINE SOLOSTAR 100 UNITS/ML 3 ML PEN SC SCH (09:53)
[2021-05-21] MEDS: DOCUSATE SODIUM/SENNA 50/8.6MG TAB PO SCH (09:54)
[2021-05-21] MEDS: THIAMINE HCL 100 MG TAB PO SCH ×2 (09:54→20:41)
[2021-05-21] MEDS: DICLOFENAC SOD 1% GEL 100 GM TUBE EXT SCH ×2 (13:08→20:38)
[2021-05-21] MEDS: risperiDONE 1 MG/ML SOLUTION PO SCH (20:42)
[2021-05-22] MEDS: MECLIZINE 12.5 MG TAB PO PRN (08:34)
[2021-05-22] MEDS: ZINC SULFATE 220 MG CAPSULE PO SCH (08:34)
[2021-05-22] MEDS: PYRIDOXINE HCL 50 MG TAB PO SCH ×2 (08:34→20:43)
[2021-05-22] MEDS: CARBIDOPA/LEVODOPA 25/100MG TAB PO SCH ×4 (08:34→20:44)
[2021-05-22] MEDS: NITROFURANTOIN MONOHYDRATE 100 MG CAP PO SCH ×2 (08:34→20:43)
[2021-05-22] MEDS: CEROVITE ADV FORMULA TAB PO SCH (08:34)
[2021-05-22] MEDS: lisinopril 10 MG TAB PO SCH (08:34)
[2021-05-22] MEDS: CHOLECALCIFEROL 1,000 UNITS 25 MCG TAB PO SCH ×2 (08:34→20:43)
[2021-05-22] MEDS: CYANOCOBALAMIN (VITAMIN B-12) 2,500 MCG TAB.SUBL SL SCH (08:34)
[2021-05-22] MEDS: ASCORBIC ACID 500 MG TAB PO SCH (08:34)
[2021-05-22] MEDS: DOCUSATE SODIUM/SENNA 50/8.6MG TAB PO SCH (08:35)
[2021-05-22] MEDS: COLLAGENASE OINT 30 GM TUBE EXT SCH (08:35)
[2021-05-22] MEDS: DICLOFENAC SOD 1% GEL 100 GM TUBE EXT SCH ×3 (08:35→20:44)
[2021-05-22] MEDS: THIAMINE HCL 100 MG TAB PO SCH ×2 (08:35→20:43)
[2021-05-22] MEDS: POLYETHYLENE (MIRALAX) 17 GM PACK PO SCH (08:35)
[2021-05-22] MEDS: ENOXAPARIN INJ 30 MG/0.3 ML SYR SQ SCH ×2 (08:36→20:43)
[2021-05-22] MEDS: INSULIN GLARGINE SOLOSTAR 100 UNITS/ML 3 ML PEN SC SCH (08:36)
--- NOTE | 2021-05-22 08:45 | Hospitalist Progress Note ---
Date of Service May 22, 2021 Assessment & Plan (1) Pneumonia due to COVID-19 virus: Plan: clinically resolved - NC O2 weaned off 05/03/21 and stable in RA since - s/p 10 day course of dexamethasone - no symptoms at this time 94% on RA Regarding inpatient vaccination status for placement: Patient agreeable to receiving J&J booster as well, but wanted me to also discuss with her daughter. Patient and daughter agreeable to J&J booster to assist in search for bed placement/SNF. Daughter initially thought patient was "clear" and by that she thought mother tested negative for COVID to be taken off of precautions. Discussed that only on isolation for certain number of days and could test positive for several months, and that SNF are requiring patients to be vaccinated at many facilities. Ordered J&J for 05/18 but then patient thought possibly she did have in past -- checked with pharmacy/database and had call to [facility] office and patient never had documentation of receiving this. --> Alerted CM of booster for 05/19, and hopefully will assist with placement. Daughter aline oldest and making decisions. Son on board with patient being too much at home per sister but not keen on idea of rehab however unable to care for her at this time and decision to pursue placement. Monitor for fevers following/discomfort. Tylenol available prn pain/fever Did have a fall evening 05/20 and hit her head --> CT negative for acute process. Fell and caught herself with R hand/knee and imaging all negative for acute fractures --> Tylenol for pain, also ordered topical voltaren as needed as well Updated daughter Aline of fall, bed alarm was not turned back on when aide assisted back to bed from bathroom (patient states that is her reminder "the greenberg" that she needs to wait for help to get up) Additional facilities provided by son and discussed with Aline who will review them as well, and patient already on list for 2 of the 5 facilities Remains stable on repeat eval. Occasional forgetfulness but knows she is in the same hospital as she has been, stated it was april today. This morning was but stated 2019 this afternoon. Easily re-oriented. Remains on frequent checks, fall risk. Continued re-enforcement to use walker for safety and bed alarm in place to prevent further issues. (2) Dizziness: Plan: Admitted when found down at home, + COVID as above and completed treatment Question of syncope at home, and + murmur on examination without ECHO having been performed as ordered on admission No focal deficit concerning for CVA, sounds more like orthostatic hypotension vs BPPV --> given 500cc NSS and no further dizziness reported Unfortunately had fall as bed alarm not turned on evening 05/20--> CT head negative as above ECHO without significant valvular dysfunction --> done as reported down prior to admission and felt syncopal Meclizine available prn and did get a dose this morning. Will have RN re-check vitals as did not report dizziness to me during encounter. Continue to monitor (3) Metabolic encephalopathy: Plan: suspect due to COVID encephalopathy, hospital psychosis, UTI, etc. - trialed Risperdal 0.25mg - has helped, and has tolerated the med and discussed with daughter - increased to 0.5 mg and monitor for any symptoms/drowsiness (refused the previous 2 nights before switching to oral solution per discussion with daughter 05/19 and since she has received) MRI brain without acute or subacute CVA; no ICH, tumor, etc. recent b12/tsh wnl Daughter she states that several months ago the patient was a/o x 3 and living independently . Memory issues 05/15 and repeat UA given recent reyes --> coag neg staph, not saprophytic, sensitive to nitrofurantoin. --> Switched from keflex to nitro on 05/18 --> remains on 100mg BID to complete course, would be finished after AM dose on 05/24 Continue empiric thiamine 200mg BID x 1 month - remains stable at this time and answering questions appropriately Per daughter, would like to discuss eval by psych later in the week once UTI resolved. Concerns with depression/lack of interest at home over past couple of months. Concerns about weight loss at home --> discussed could try mirtazapine to help with sleep/mood/appetite but would hold off at current moment to not start additional medication that could interact with others and will consider later in the week, as patient likely to remain inpatient xx 2 weeks post booster until SNF able to take (on going search) Crystal would like to consider remeron once completed with abx (4) Parkinsons disease: Plan: Continue with Carbidopa-Levadopa per home dosing --> resumed AM as just fell off MAR last evening --does she have underlying dementia from PD?? MRI brain neg for acute findings -risperdal low dose 0.5mg HS - has helped delirium - continue (refused prior 2 evenings), changed to liquid solution after discussion with daughter 05/19 and she did take last evening and appeared more rested today but RN did note did have some agitation overnight but was able to be calmed down by staff (5) UTI (urinary tract infection): Plan: -E coli during admission-course of Levaquin completed Reyes since discontinued Repeat Urine cx with coag neg staph, not saprophytic, sensitive to Nitro/Dapto/Vanco --> switched from keflex to Nitrofurantoin 05/18 to complete course 05/24 (6) Dysphagia: Plan: -pureed diet -no issues per staff or patient and tolerating well son also brought dentures 05/20, which will also help and could consider advancing diet if tolerated. messaged speech to see if able to re-visit (7) Hypernatremia: Plan: resolved (8) Hypokalemia: Plan: -resolved (9) Diabetes: Plan: -lantus to 8 units from 5 for elevations in days past, continue SSI improvement in BSGs and will continue current regimen and monitor (10) Rhabdomyolysis: Plan: -RESOLVED -found on floor at her home -- likely cause of rhabdo -COVID can also cause rhabdo (11) Pressure injury of back, stage 2: Plan: Present on admission secondary to patient being found down at home Optifoams, frequent turning, etc wound care saw, narda's added once daily - will need outpatient F/U ([phone]) cont MVI/vit C/zinc/thiamine waffle cushion for comfort, pain control ordered --> reports improvement in discomfort and no need for medication outside of occasional tylenol (12) Chronic kidney disease, stage 3a: Plan: baseline CrCl 50s stable (13) Urinary retention: Plan: 2nd to UTI? s/p reyes reinsertion 05/04/21 - kept to try and prevent urine exposure to wound but since removed, has been voiding since T x of UTI as above Plan: will need rehab post-d/c cont PT/OT while inpatient --> ambulating 40' x 2 with rolling walker/contact guard. min assist x 1 and occ assist for walker management. ambulating w/ slow gait, narrow base of support. fatigues but continues to slowly improve case management helping with post-d/c disposition --> patient received J&J booster 05/19 (as agreed upon by patient and curry wiggins), should help with placement however could be up to 2 weeks before they are willing to accept. Daughter justin (oldest sibling, no POA) about patient to rehab closer to [place] where nursing ratio to patients lower, however discussed if able to find placement closer sooner will need to consider given lack of beds across the [facility]. Son also provided additional facilities 05/20 which were relayed to CM and referrals sent Updated daughter again on phone 05/21 and will attempt again later today. Daughter Aline would like daily updates -- did discuss if any specific questions to please call in to speak with provider if needed Admission and Anticipated Discharge Date Admission Date: April 18, 2021 Subjective eval this afternoon doing alright pain controlled up to bathroom this afternoon and needs assistance for safety/cues with walker but overall continues to remain stable. no fever, chills, chest pain, shortness of breath,abdominal pain, nausea, vomiting or further dizziness reported. awaiting placement at this time Review of Systems Review of Systems: All systems reviewed & are unremarkable except as noted in HPI & below Physical Exam Physical Exam: gen - thin, frail, tremor of facial muscles from parkinson's - unchanged; pleasant confusion as previous but is alert to person; knows in hospital, April and stated year 2020, although easily re-oriented. sitting up in chair eating breakfast head with ecchymosis small hematoma to right lateral forehead, tender to palpation eyes- pupils equal and reactive, no nystagmus, EOMI, visual grande normal by confrontation head/neck - normocephalic, no JVD, mmm heart - RRR, s1 s2, 1/6 MADELINE LSB, calves non-tender lungs - CTAB, no wheeze/crackles, 45% on RA abd - soft NT ND BS+ ext - no edema, pulses 2+ b/l, some effusion/ecchymosis to medial R knee neuro - tremor of facial muscles, mild tremor of arms (stable) psych - a/o x 2, occasionally oriented to time (appears better today but did think year this morning was 1970s), stating she wants to be in rehab close to home Results & Data Results & Data ([facility]) Vital Signs (Past 12 Hours) Vital Signs Temp Pulse Resp BP BP Pulse Ox 05/22/21 07:21 36.8 C 78 16 112/64 94 05/21/21 22:09 36.9 C 75 16 102/64 94 Laboratory Results 05/22/21 05/21/21 05/21/21 Range/Units 07:52 20:33 17:01 POC Glucose 149 H 96 72 (70-99) mg/dl 05/21/21 Range/Units 11:43 POC Glucose 138 H (70-99) mg/dl PG Care Time/CCT Total # of Minutes Spent Total Time Spent with Patient: Total time spent is greater than 50% in coordination of care (as documented) at patient's floor/unit and/or counseling patient: Coding Level of Care Code 34533 Subseq Hosp Care Lvl 2 Diagnoses Pneumonia due to COVID-19 virus U07.1; J12.82 Dizziness R42 Metabolic encephalopathy G93.41 Parkinsons disease G20 UTI (urinary tract infection) N39.0 Dysphagia R13.10 Hypernatremia E87.0 Hypokalemia E87.6 Diabetes E11.9 Rhabdomyolysis M62.82 Pressure injury of back, stage 2 L89.102 Chronic kidney disease, stage 3a N18.31 Urinary retention R33.9
[2021-05-22] MEDS: INSULIN ASPART PER UNIT SC SCH ×4 (08:46→20:44)
[2021-05-22] MEDS ORDERED: BACITRACIN OINT 15 GM TUBE EXT ONE (17:42)
--- NOTE | 2021-05-22 18:33 | Surgery Consultation ---
Date of Consultation May 22, 2021 Assessment & Plan (1) Sacral decubitus ulcer, stage IV: pt is a 76 year-old female who is asked for consult debridement sacral ulcer, IMP: sacral ulcer, Plan, I recommend to do debridement sacral ulcer at bedside, D/W benefits, risks and alternatives of the the procedure with pt and pt's daughter Aline( on phone), the risks - infection, bleeding, may need more procedure, they understood, pt's daughter gave the consent on the phone, I answered all questions, at bed side, after time out, apply betadine on wound, remove necrotic tissue, deep to close bone, minimal active bleeding after apply pressure the bleeding is stop, wound culture sent, apply bacitricin on wound cover 4X4 gouze, pt tolerated the procedure well, pt did not feel any pain, the nurse at bedside assist me, wound care nurse change dressing once a day, will F/U Supervising Physician Co-Signing Physician Notes PA Supervision Note: I did not personally see or examine the patient today, but I verified all bahena points of RAVI Knapp's assessment and plan with the following exceptions/additions: None History of Present Illness Reason for Consultation: sacral ulcer Requesting Physician: Magui Pisano Attending Physician: Cristino Ramsey MD History of Present Illness CC: consult debridement sacral ulcer HPI: 76 YOF with past medical history of: Parkinson's disease, DM II, HTN, HLD. There are no PCP records in our system and the contact information listed goes to in inoperable number. Aline daughter did call for the following information. Patient was brought in via EMS. The rest of the information was obtained from the daughter Aline. Patient was found on Wednesday not answering phone or door, so police were notified and they were able to gain access. She was found on the couch sleeping and was arousable and she declined to come to hospital. Her Grand-daughter (lillian daughter) was able to get a bahena made and went to check on her today. When she opened the door, Loly (the patient) was on the floor with no blood noted and was arousable but covered in stool. Aline is unsure of when she may have started having sym ptoms or onset of COVID and states she has normally been feeling well, but has noted a functional decline over the past few months. She was brought to the EMD with encephalopathy and noted to have COVID. In the EMD the patient had routine blood work done to include blood cultures, tox screen and ETOH level. The patient was noted to have Gap acidosis of 19 with a HCO3 of 16 with glucose of 272 with normal BUN/NET DEVELOPER WITH WCF, normal lactate, and normal WBC, with negative PCT. Her CK is 1616. Her UA revealed +4 ketones, 2+ protein and negative bacteria/LE/Nitr. She received a dose of Cefepime in the EMD and 1Liter of crystalloid and hospitalist service was notified for admission. Patient will be admitted to PCU-COVID floor for correction of her metabolic acidosis in the setting of ketosis and mild rhabdomyolysis and also likely metformin associated acidosis as well. Her CXR shows patchy alveolar opacity ? early pneumonia and no other acute process, her CT of her head revealed no acute process. Patient is not hypoxic. Patient is not vaccinated and her: COVID on admission is POSITIVE I ( Joshua Simon MD ) got a call for consult debridement sacral ulcer, I reviewed pt's H/P, labs, with pt, pt's daughter and nurse, Allergies Allergy/AdvReac Type Severity Reaction Status Date / Time latex Allergy Mild RASH Verified 04/18/21 14:19 Sulfa (Sulfonamide Allergy Unknown Verified 04/18/21 14:19 Antibiotics) Bee sting Allergy Unknown Unknown Uncoded 04/18/21 14:19 Home Medications Medication Instructions Recorded Confirmed Type bilberry 100 mg capsule 200 mg PO BID 06/13/18 04/18/21 History cinnamon bark 500 mg capsule 500 mg PO BID 06/13/18 04/18/21 Hi story (Cinnamon) glyburide 5 mg tablet 5 mg PO BID 06/13/18 04/18/21 History magnesium oxide 400 mg PO BID 06/13/18 04/18/21 History metformin 500 mg tablet 500 mg PO BIDM 06/13/18 04/18/21 History potassium 99 mg tablet 495 mg PO BID 06/13/18 04/18/21 History simvastatin 40 mg tablet 40 mg PO QDD 06/13/18 04/18/21 Histor y cholecalciferol (vitamin D3) 25 1,000 units PO BID cap 01/09/1903/25 History mcg (1,000 unit) capsule cyanocobalamin (vitamin B-12) 2,500 mcg PO DAILY 01/09/19 04/18/21 H istory 2,500 mcg tablet folic acid 800 mcg tablet 800 mcg PO BID tab 01/09/19 04/18/21 Histo ry lisinopril 10 mg tablet 10 mg PO DAILY Dee 01/09/19 04/18/21 Histor y pyridoxine (vitamin B6) 100 mg 100 mg PO BID tab 01/09/19 04/18/21 History tablet carbidopa 25 mg-levodopa 100 mg 2 tab PO QID 30 Days #240 tab 04/01/21 04/18/21 Rx tablet Past Med/Surg History Medical History(Updated 04/18/21 @ 17:46 by CHUCHO Brady) Ankle sprain Diabetes HLD (hyperlipidemia) Parkinsons disease Surgical History History of back surgery History of dilation and curettage Family History Family/Other Heart diseaseMother No pertinent family historyFather No pertinent family history Social History Smoking Status: Never smoker Preferred Language: Cypriot Film Splicer Required: No marital status: Current Living Situation: Alone current occupational status: employed Feels Safe at Home: Yes Review of Systems Review of Systems: REVIEW OF SYSTEMS: Unable to complete secondary to encephalopathy/confusion Allergies Allergy/AdvReac Type Severity Reaction Status Date / Time latex Allergy Mild RASH Verified 04/18/21 14:19 bee venom protein (honey bee) Allergy Unknown Unknown Verified 04/28/21 09:22 Sulfa (Sulfonamide Allergy Unknown Unknown Verified 04/28/21 09:22 Antibiotics) Home Medications Medication Instructions Recorded Confirmed Type bilberry 100 mg capsule 200 mg PO BID 06/13/18 04/18/21 History cinnamon bark 500 mg capsule 500 mg PO BID 06/13/18 04/18/21 History (Cinnamon) glyburide 5 mg tablet 5 mg PO BID 06/13/18 04/18/21 History magnesium oxide 400 mg PO BID 06/13/18 04/18/21 History metformin 500 mg tablet 500 mg PO BIDM 06/13/18 04/18/21 History potassium 99 mg tablet 495 mg PO BID 06/13/18 04/18/21 History simvastatin 40 mg tablet 40 mg PO QDD 06/13/18 04/18/21 History cholecalciferol (vitamin D3) 25 1,000 units PO BID cap 01/09/19 04/18/21 History mcg (1,000 unit) capsule cyanocobalamin (vitamin B-12) 2,500 mcg PO DAILY 01/09/19 04/18/21 History 2,500 mcg tablet folic acid 800 mcg tablet 800 mcg PO BID tab 01/09/19 04/18/21 History lisinopril 10 mg tablet 10 mg PO DAILY tab 01/09/19 04/18/21 History pyridoxine (vitamin B6) 100 mg 100 mg PO BID tab 01/09/19 04/18/21 History tablet carbidopa 25 mg-levodopa 100 mg 2 tab PO QID 30 Days #240 tab 04/01/21 04/18/21 Rx tablet Patient History Medical History (Updated 05/22/21 @ 18:45 by Joshua Simon MD) Ankle sprain Diabetes HLD (hyperlipidemia) Parkinsons disease Surgical History History of back surgery History of dilation and curettage Family History Family/Other Heart disease Mother No pertinent family history Father No pertinent family history Social History Smoking Status: Never smoker Preferred Language: Cypriot Communication Ability: Effective Film Splicer Required: No marital status: Current Living Situation: Alone current occupational status: employed How many Children do You have: 3 Feels Safe at Home: Yes Assistive Devices: Walker Review of Systems Constitutional: as per Subjective / HPI Eyes: as per Subjective / HPI Respiratory: pneumonia-COVID Cardiovascular: Additional Comments: HLD Gastrointestinal: dysphagia Genitourinary: urinary retention, chronic kidney disease stage 3a Musculoskeletal: pressure injury of back Neurologic: Parkinsons disease, metabolic encephalopathy Psychiatric: as per Subjective / HPI Endocrine: DM Hematologic / Lymphatic: as per Subjective / HPI Physical Exam Constitutional: pt is alter and awake, Eyes: PERRL, conjunctivae normal, anicteric sclerae Neck: trachea midline, no thyromegaly Respiratory: normal respiratory effort, lungs clear to auscultation Cardiovascular: RRR, no murmur, no edema Gastrointestinal (Abdomen): normal bowel sounds, soft, nontender, no hepatosplenomegaly Skin: sacral ulcer, size about 3x3cm, some chronic necrotic tissue, with drianage, deep to bone, stage 4 Neurologic: patellar DTR's 2+ bilat, sensation intact Psychiatric: Orientation: alert Results & Data ([facility]) Vital Signs (Past 12 Hours) Vital Signs Temp Pulse Resp BP BP Pulse Ox 05/22/21 15:18 37.2 C 87 16 125/78 97 05/22/21 07:21 36.8 C 78 16 112/64 94 Laboratory Results Abnormal lab results 05/22/21 05/22/21 Range/Units 07:52 11:49 POC Glucose 149 H 222 H (70-99) mg/dl
--- NOTE | 2021-05-22 19:44 | Operative Report (OR) ---
DATE OF PROCEDURE: 05/22/2021. PREOPERATIVE DIAGNOSIS: Sacral ulcer. POSTOPERATIVE DIAGNOSIS: Sacral ulcer. OPERATION: Debridement of sacral ulcer at the bedside. SURGEON: Joshua Simon MD. ANESTHESIA: None. ESTIMATED BLOOD LOSS: About 1 mL. FINDINGS: Sacral ulcer deep to bone and stage IV. COMPLICATIONS: None. INDICATIONS FOR THE PROCEDURE: This is a 76-year-old female who is referred for debridement of sacral ulcer. I did talk to the patient and the patient's daughter about the benefit, risk, alternate procedure. I recommended to do debridement of sacral ulcer. I indicated the risks may include, but not limited to, such as bleeding, infection, may need more procedure. They understand. The patient's daughter, Aline, gave consent on the phone. I answered all questions. DETAILS OF PROCEDURE: After we identified the patient and verified the procedure, we did the procedure at the patient's bedside with a nurse assisted me. I turned the patient to the right side up position and examined the sacral ulcer. Ulcer size was about 3 x 3 cm deep to the bone. There was some chronic tissue on the top of the bone with some drainage. At this moment, we applied the Betadine on the wound and then used a sharp procedure. We removed chronic tissue and minimal active bleeding. We applied pressure, bleeding stopped. Also, we sent wound culture. Once removed all the tissue, we applied bacitracin, covered with 4 x 4 gouze, put the dressing on. The patient tolerated the procedure well and the patient did not feel any pain during the procedure. After the procedure, I did talk to the patient about the findings and the procedure we did, the patient understands. Job ID: [id number] [facility]
[2021-05-22] MEDS: risperiDONE 1 MG/ML SOLUTION PO SCH (20:43)
[2021-05-22] MEDS: ACETAMINOPHEN 325 MG TAB PO PRN (20:50)
[2021-05-23] MEDS: ACETAMINOPHEN 325 MG TAB PO PRN (04:39)
[2021-05-23 06:49] LABS: Basophils # (auto) 0.01 K/uL (0-0.2); Basophils % (auto) 0.2 %; Eosinophils # (auto) 0.07 K/uL (0-0.5); Eosinophils % (auto) 1.1 %; Hematocrit (blood only) 31.7 % (37-47); Immature Granulocytes # (auto) 0.01 K/uL (0.00-0.02); Immature Granulocytes % (auto) 0.2 %; Lymphocytes # (auto) 1.17 K/uL (1.2-3.4); Lymphocytes % (auto) 18.6 %; Mean Corpuscular Hemoglobin 28.9 pg (25-34); Mean Corpuscular Hgb Conc 31.5 g/dL (32-36); Mean Corpuscular Volume 91.6 fL (80-100); Monocytes # (auto) 0.66 K/uL (0.11-0.59); Monocytes % (auto) 10.5 %; Neutrophils # (auto) 4.38 K/uL (1.4-6.5); Neutrophils % (auto) 69.4 %; Platelet Count 340 K/uL (130-400); RDW Coefficient of Variation 14.6 % (11.5-14.5); Red Blood Count 3.46 M/uL (4.2-5.4)
[2021-05-23 07:16] LABS: BUN Creatinine Ratio 17.7 (10-20); Calcium 8.8 mg/dl (8.5-10.1); Creatinine Clr Calc Pharmacy 54.2 ml/min; Est GFR (African American) 85.7 ml/min
[2021-05-23] MEDS: NITROFURANTOIN MONOHYDRATE 100 MG CAP PO SCH (08:09)
[2021-05-23] MEDS: CHOLECALCIFEROL 1,000 UNITS 25 MCG TAB PO SCH ×2 (08:10→20:18)
[2021-05-23] MEDS: lisinopril 10 MG TAB PO SCH (08:10)
[2021-05-23] MEDS: ASCORBIC ACID 500 MG TAB PO SCH (08:10)
[2021-05-23] MEDS: PYRIDOXINE HCL 50 MG TAB PO SCH ×2 (08:10→20:17)
[2021-05-23] MEDS: THIAMINE HCL 100 MG TAB PO SCH ×2 (08:11→20:18)
[2021-05-23] MEDS: CEROVITE ADV FORMULA TAB PO SCH (08:11)
[2021-05-23] MEDS: CYANOCOBALAMIN (VITAMIN B-12) 2,500 MCG TAB.SUBL SL SCH (08:11)
[2021-05-23] MEDS: CARBIDOPA/LEVODOPA 25/100MG TAB PO SCH ×4 (08:11→20:18)
[2021-05-23] MEDS: DICLOFENAC SOD 1% GEL 100 GM TUBE EXT SCH ×3 (08:12→20:16)
[2021-05-23] MEDS: ZINC SULFATE 220 MG CAPSULE PO SCH (08:12)
[2021-05-23] MEDS: DOCUSATE SODIUM/SENNA 50/8.6MG TAB PO SCH (08:12)
[2021-05-23] MEDS: POLYETHYLENE (MIRALAX) 17 GM PACK PO SCH (08:12)
[2021-05-23] MEDS: ENOXAPARIN INJ 30 MG/0.3 ML SYR SQ SCH ×2 (08:12→20:17)
[2021-05-23] MEDS: INSULIN GLARGINE SOLOSTAR 100 UNITS/ML 3 ML PEN SC SCH (08:13)
[2021-05-23] MEDS: INSULIN ASPART PER UNIT SC SCH ×4 (09:12→20:37)
[2021-05-23] MEDS: COLLAGENASE OINT 30 GM TUBE EXT SCH (09:21)
--- NOTE | 2021-05-23 10:18 | Surgery Progress Note ---
Date of Service May 23, 2021 Assessment & Plan (1) Sacral decubitus ulcer, stage IV: Plan: Patient doing well postop day 1 sacral debridement We will have wound care team evaluate patient for dressing recommendations Her operative culture is pending, will follow up results Offload area as much as possible Admission and Anticipated Discharge Date Admission Date: April 18, 2021 Subjective Patient seen and examined. Minimal pain at surgical site. Afebrile. Review of Systems Constitutional: no fever and no chills Physical Exam Constitutional: WD/WN, vitals as above Skin: Dressing clean dry and intact. Results & Data ([facility]) Vital Signs (Past 12 Hours) Vital Signs Temp Pulse Resp BP BP Pulse Ox 05/23/21 07:17 36.3 C L 71 18 95/62 L 95 05/22/21 22:34 36.6 C 90 20 118/63 94 PG Care Time/CCT Total # of Minutes Spent Total Time Spent with Patient: Total time spent is greater than 50% in coordination of care (as documented) at patient's floor/unit and/or counseling patient: Coding Level of Care Code 13711 Subseq Hosp Care Lvl 1 Diagnoses Sacral decubitus ulcer, stage IV L89.154
--- NOTE | 2021-05-23 15:40 | Hospitalist Progress Note ---
Date of Service May 23, 2021 Assessment & Plan (1) Sacral decubitus ulcer, stage IV: Plan: Surgery was consulted on 05/22 at the request of Wound Care as her sacral ulcer was not responding to conservative care. - Debrided by Dr. Simon on 05/22/2021 - Wound culture sent at that time. Of note, she has exposed bone from the debridement, so she de facto has osteomyelitis. - Will consult ID - Will defer initiating antibiotic therapy at this time. She is hemodynamically stable without any signs of sepsis. Will need bone biopsy and likely need long- term IV antibiotics. (2) Pneumonia due to COVID-19 virus: Plan: clinically resolved - NC O2 weaned off 05/03/21 and stable in RA since - s/p 10 day course of dexamethasone - no symptoms at this time 94% on RA Regarding inpatient vaccination status for placement: Patient agreeable to receiving J&J booster as well, but wanted me to also discuss with her daughter. Patient and daughter agreeable to J&J booster to assist in search for bed plac ement/SNF. Daughter initially thought patient was "clear" and by that she thought mother tested negative for COVID to be taken off of precautions. Discussed that only on isolation for certain number of days and could test positive for several months, and that SNF are requiring patients to be vaccinated at many facilities. Ordered J&J for 05/18 but then patient thought possibly she did have in past -- checked with pharmacy/database and had call to [facility] office and patient never had documentation of receiving this. --> Alerted CM of booster for 05/19, and hopefully will assist with placement. Daughter aline oldest and making decisions. Son on board with patient being too much at home per sister but not keen on idea of rehab however unable to care for her at this time and decision to pursue placement. Monitor for fevers following/discomfort. Tylenol available prn pain/fever Did have a fall evening 05/20 and hit her head --> CT negative for acute process. Fell and caught herself with R hand/knee and imaging all negative for acute fractures --> Tylenol for pain, also ordered topical voltaren as needed as well Updated daughter Aline of fall, bed alarm was not turned back on when aide assisted back to bed from bathroom (patient states that is her reminder "the greenberg" that she needs to wait for help to get up) Additional facilities provided by son and discussed with Aline who will review them as well, and patient already on list for 2 of the 5 facilities (3) Dizziness: Plan: Admitted when found down at home, + COVID as above and completed treatment Question of syncope at home, and + murmur on examination without ECHO having been performed as ordered on admission No focal deficit concerning for CVA, sounds more like orthostatic hypotension vs BPPV --> given 500cc NSS and no further dizziness reported Unfortunately had fall as bed alarm not turned on evening 05/20--> CT head negative as above ECHO without significant valvular dysfunction --> done as reported down prior to admission and felt syncopal Meclizine available prn and did get a dose this morning. Continue to monitor (4) Metabolic encephalopathy: Plan: suspect due to COVID encephalopathy, hospital psychosis, UTI, etc. - trialed Risperdal 0.25mg - has helped, and has tolerated the med and discussed with daughter - increased to 0.5 mg and monitor for any symptoms/drowsiness (refused the previous 2 nights before switching to oral solution per discussion with daughter 05/19 and since she has received) MRI brain without acute or subacute CVA; no ICH, tumor, etc. recent b12/tsh wnl Daughter she states that several months ago the patient was a/o x 3 and living independently . Memory issues 05/15 and repeat UA given recent reyes --> coag neg staph, not saprophytic, sensitive to nitrofurantoin. --> Switched from keflex to nitro on 05/18 --> remains on 100mg BID to complete course, would be finished after AM dose on 05/24 Continue empiric thiamine 200mg BID x 1 month - remains stable at this time and answering questions appropriately Per daughter, would like to discuss eval by psych later in the week once UTI resolved. Concerns with depression/lack of interest at home over past couple of months. Concerns about weight loss at home --> discussed could try mirtazapine to help with sleep/mood/appetite but would hold off at current moment to not start additional medication that could interact with others and will consider later in the week, as patient likely to remain inpatient xx 2 weeks post booster until SNF able to take (on going search) Aline would like to consider remeron once completed with abx (5) Parkinsons disease: Plan: Continue with Carbidopa-Levadopa per home dosing --> resumed AM as just fell off MAR last evening --does she have underlying dementia from PD?? MRI brain neg for acute findings -risperdal low dose 0.5mg HS - has helped delirium - continue (refused prior 2 evenings), changed to liquid solution after discussion with daughter 05/19 and she did take last evening and appeared more rested today but RN did note did have some agitation overnight but was able to be calmed down by staff (6) UTI (urinary tract infection): Plan: -E coli during admission-course of Levaquin completed Reyes since discontinued (7) Dysphagia: Plan: -pureed diet -no issues per staff or patient and tolerating well son also brought dentures 05/20, which will also help and could consider advancing diet if tolerated. messaged speech to see if able to re-visit (8) Hypernatremia: Plan: resolved (9) Hypokalemia: Plan: -resolved (10) Diabetes: Plan: -lantus to 8 units from 5 for elevations in days past, continue SSI improvement in BSGs and will continue current regimen and monitor (11) Rhabdomyolysis: Plan: -RESOLVED -found on floor at her home -- likely cause of rhabdo -COVID can also cause rhabdo (12) Pressure injury of back, stage 2: Plan: Present on admission secondary to patient being found down at home Optifoams, frequent turning, etc wound care saw, santyl's added once daily - will need outpatient F/U ([phone]) cont MVI/vit C/zinc/thiamine waffle cushion for comfort, pain control ordered --> reports improvement in discomfort and no need for medication outside of occasional tylenol (13) Chronic kidney disease, stage 3a: Plan: baseline CrCl 50s stable (14) Urinary retention: Plan: 2nd to UTI? s/p reyes reinsertion 05/04/21 - kept to try and prevent urine exposure to wound but since removed, has been voiding since T x of UTI as above Plan: will need rehab post-d/c cont PT/OT while inpatient --> ambulating 40' x 2 with rolling walker/contact guard. min assist x 1 and occ assist for walker management. ambulating w/ slow gait, narrow base of support. fatigues but continues to slowly improve case management helping with post-d/c disposition --> patient received J&J booster 05/19 (as agreed upon by patient and daughter), should help with placement however could be up to 2 weeks before they are willing to accept. Daughter justin (oldest sibling, no POA) about patient to rehab closer to [place] where nursing ratio to patients lower, however discussed if able to find placement closer sooner will need to consider given [facility] [place]. Son also provided additional facilities 05/20 which were relayed to CM and referrals sent Daughter Aline would like daily updates -- did discuss if any specific questions to please call in to speak with provider if needed Admission and Anticipated Discharge Date Admission Date: April 18, 2021 Subjective Doing well today. Some mild pain at the sacral area. Results & Data Results & Data ([facility]) Vital Signs (Past 12 Hours) Vital Signs Temp Pulse Resp BP Pulse Ox 05/23/21 07:17 36.3 C L 71 18 95/62 L 95 PG Care Time/CCT Total # of Minutes Spent Total Time Spent with Patient: Total time spent is greater than 50% in coordination of care (as documented) at patient's floor/unit and/or counseling patient: Coding Level of Care Code 34063 Subseq Hosp Care Lvl 2 Diagnoses Pneumonia due to COVID-19 virus U07.1; J12.82 Dizziness R42 Metabolic encephalopathy G93.41 Parkinsons disease G20 UTI (urinary tract infection) N39.0 Dysphagia R13.10 Hypernatremia E87.0 Hypokalemia E87.6 Diabetes E11.9 Rhabdomyolysis M62.82 Pressure injury of back, stage 2 L89.102 Chronic kidney disease, stage 3a N18.31 Urinary retention R33.9 Sacral decubitus ulcer, stage IV L89.154
[2021-05-23] MEDS: risperiDONE 1 MG/ML SOLUTION PO SCH (20:17)
[2021-05-24 07:18] LABS: Hematocrit (blood only) 33.7 % (37-47); Hemoglobin 10.6 g/dL (12.0-16.0); Mean Corpuscular Hemoglobin 28.5 pg (25-34); Mean Corpuscular Hgb Conc 31.5 g/dL (32-36); Mean Corpuscular Volume 90.6 fL (80-100); Mean Platelet Volume 9.1 fL (7.4-10.4); Platelet Count 363 K/uL (130-400); RDW Coefficient of Variation 14.5 % (11.5-14.5); RDW Standard Deviation 48.2 fL (36.4-46.3); Red Blood Count 3.72 M/uL (4.2-5.4); White Blood Count 6.71 K/uL (4.8-10.8)
[2021-05-24 07:52] LABS: BUN Creatinine Ratio 22.8 (10-20); Calcium 8.8 mg/dl (8.5-10.1); Creatinine Clr Calc Pharmacy 56.4 ml/min; Est GFR (African American) 89.9 ml/min; Est GFR (Non-African American) 77.6 ml/min; Magnesium 2.2 mg/dl (1.8-2.4); Potassium 4.2 mmol/L (3.5-5.1)
--- NOTE | 2021-05-24 08:26 | Surgery Progress Note ---
Date of Service May 24, 2021 Assessment & Plan (1) Sacral decubitus ulcer, stage IV: Plan: Patient doing well status post debridement We will trial local wound care over the weekend to see if wound will start to granulate Can reassess on Wednesday whether further debridement needs to be performed with Dr. Simon Admission and Anticipated Discharge Date Admission Date: April 18, 2021 Subjective Patient seen and examined. She denies much pain from her operative site. No fevers or chills. Physical Exam Constitutional: WD/WN, vitals as above Skin: Dressing clean dry and intact. Results & Data ([facility]) Vital Signs (Past 12 Hours) Vital Signs Temp Pulse Resp BP Pulse Ox 05/24/21 07:42 36.7 C 84 16 114/81 93 05/23/21 22:31 36.6 C 83 16 117/71 95 PG Care Time/CCT Total # of Minutes Spent Total Time Spent with Patient: Total time spent is greater than 50% in coordination of care (as documented) at patient's floor/unit and/or counseling patient: Coding Level of Care Code 28261 Subseq Hosp Care Lvl 1 Diagnoses Sacral decubitus ulcer, stage IV L89.154
[2021-05-24] MEDS: DICLOFENAC SOD 1% GEL 100 GM TUBE EXT SCH ×3 (08:42→21:47)
[2021-05-24] MEDS: ENOXAPARIN INJ 30 MG/0.3 ML SYR SQ SCH (08:42)
[2021-05-24] MEDS: ASCORBIC ACID 500 MG TAB PO SCH (08:43)
[2021-05-24] MEDS: CARBIDOPA/LEVODOPA 25/100MG TAB PO SCH ×5 (08:43→21:52)
[2021-05-24] MEDS: THIAMINE HCL 100 MG TAB PO SCH ×3 (08:43→21:52)
[2021-05-24] MEDS: DOCUSATE SODIUM/SENNA 50/8.6MG TAB PO SCH (08:43)
[2021-05-24] MEDS: ZINC SULFATE 220 MG CAPSULE PO SCH (08:43)
[2021-05-24] MEDS: CYANOCOBALAMIN (VITAMIN B-12) 2,500 MCG TAB.SUBL SL SCH (08:44)
[2021-05-24] MEDS: CHOLECALCIFEROL 1,000 UNITS 25 MCG TAB PO SCH ×3 (08:44→21:52)
[2021-05-24] MEDS: PYRIDOXINE HCL 50 MG TAB PO SCH ×3 (08:44→21:52)
[2021-05-24] MEDS: CEROVITE ADV FORMULA TAB PO SCH (08:44)
[2021-05-24] MEDS: POLYETHYLENE (MIRALAX) 17 GM PACK PO SCH (08:45)
[2021-05-24] MEDS: INSULIN GLARGINE SOLOSTAR 100 UNITS/ML 3 ML PEN SC SCH (08:47)
[2021-05-24] MEDS: INSULIN ASPART PER UNIT SC SCH ×4 (08:52→20:48)
[2021-05-24] MEDS ORDERED: BACITRACIN OINT 15 GM TUBE EXT SCH (09:00)
[2021-05-24] MEDS: MECLIZINE 12.5 MG TAB PO PRN (12:59)
--- NOTE | 2021-05-24 14:08 | Hospitalist Progress Note ---
Date of Service May 24, 2021 Assessment & Plan (1) Sacral decubitus ulcer, stage IV: Plan: Surgery was consulted on 05/22 at the request of Wound Care as her sacral ulcer was not responding to conservative care. - Debrided by Dr. Simon on 05/22/2021. Wound culture sent at that time. Of note, she has exposed bone from the debridement, so she de facto has osteomyelitis. -Infectious disease consulted Initial antibiotic therapy deferred at this time. Stable without signs of sepsis, and pending bone biopsy prior to initiation Anticipate prolonged course of IV antibiotics will be required Wound care to see (2) Pneumonia due to COVID-19 virus: Plan: - clinically resolved - NC O2 weaned off 05/03/21 and stable in RA since - s/p 10 day course of dexamethasone -Symptoms resolved, remains asymptomatic No hypoxia Regarding inpatient vaccination status for placement: Patient agreeable to receiving J&J booster as well, but wanted me to also discuss with her daughter. Patient and daughter agreeable to J&J booster to assist in search for bed placement/SNF. Daughter initially thought patient was "clear" and by that she thought mother tested negative for COVID to be taken off of precautions. Discussed that only on isolation for certain number of days and could test positive for several months, and that SNF are requiring patients to be vaccinated at many facilities. Ordered J&J for 05/18 but then patient thought possibly she did have in past -- checked with pharmacy/database and had call to [facility] office and patient never had documentation of receiving this. --> Alerted CM of booster for 05/19, and hopefully will assist with placement. Daughter aline oldest and making decisions. Son on board with patient being too much at home per sister but not keen on idea of rehab however unable to care for her at this time and decision to pursue placement. Monitor for fevers following/discomfort. Tylenol available prn pain/fever Did have a fall evening 05/20 and hit her head --> CT negative for acute process. Fell and caught herself with R hand/knee and imaging all negative for acute fractures --> Tylenol for pain, also ordered topical voltaren as needed as well Updated daughter Aline of fall, bed alarm was not turned back on when aide assisted back to bed from bathroom (patient states that is her reminder "the greenberg" that she needs to wait for help to get up) Additional facilities provided by son and discussed with Aline who will review them as well, and patient already on list for 2 of the 5 facilities (3) Dizziness: Plan: Admitted when found down at home, + COVID as above and completed treatment Question of syncope at home, and + murmur on examination without ECHO having been performed as ordered on admission No focal deficit concerning for CVA, sounds more like orthostatic hypotension vs BPPV --> given 500cc NSS and no further dizziness reported Unfortunately had fall as bed alarm not turned on evening 05/20--> CT head negative as above ECHO without significant valvular dysfunction --> done as reported down prior to admission and felt syncopal Meclizine available prn and did get a dose this morning. Continue to monitor (4) Metabolic encephalopathy: Plan: Improved suspect due to COVID encephalopathy, hospital psychosis, UTI, etc. - trialed Risperdal 0.25mg - has helped, and has tolerated the med and discussed with daughter - increased to 0.5 mg and monitor for any symptoms/drowsiness (refused the previous 2 nights before switching to oral solution per discussion with daughter 05/19 and since she has received) MRI brain without acute or subacute CVA; no ICH, tumor, etc. recent b12/tsh wnl Daughter she states that several months ago the patient was a/o x 3 and living independently . Memory issues 05/15 and repeat UA given recent reyes --> coag neg staph, not saprophytic, sensitive to nitrofurantoin. --> Switched from keflex to nitro on 05/18 --> remains on 100mg BID to complete course, would be finished after AM dose on 05/24 Continue empiric thiamine 200mg BID x 1 month - remains stable at this time and answering questions appropriately Per daughter, would like to discuss eval by psych later i I did send a 1255 open your children the week once UTI resolved. Concerns with depression/lack of interest at home over past couple of months. Concerns about weight loss at home --> discussed could try mirtazapine to help with sleep/mood/appetite but would hold off at current moment to not start additional medication that could interact with others and will consider later in the week, as patient likely to remain inpatient xx 2 weeks post booster until SNF able to take (on going search) Aline would like to consider remeron once completed with abx (5) Parkinsons disease: Plan: -Continue with Carbidopa-Levadopa per home dosing --Question some underlying parkinsonian dementia MRI brain neg for acute findings -risperdal low dose 0.5mg HS - has helped delirium,- continue (refused prior 2 evenings), changed to liquid solution after discussion with daughter 05/19 (6) UTI (urinary tract infection): Plan: -E coli during admission -course of Levaquin completed -Reyes discontinued (7) Dysphagia: Plan: -pureed diet -no issues per staff or patient and tolerating well - son also brought dentures 05/20 (8) Hypernatremia: Plan: resolved (9) Hypokalemia: Plan: -resolved (10) Diabetes: Plan: -lantus to 8 units from 5 for elevations in days past, continue SSI improvement in BSGs and will continue current regimen and monitor (11) Rhabdomyolysis: Plan: -RESOLVED -found on floor at her home -- likely cause of rhabdo -COVID can also cause rhabdo (12) Pressure injury of back, stage 2: Plan: Present on admission secondary to patient being found down at home Optifoams, frequent turning, etc wound care saw, santyl's added once daily - will need outpatient F/U ([phone]) cont MVI/vit C/zinc/thiamine waffle cushion for comfort, pain control ordered --> reports improvement in discomfort and no need for medication outside of occasional tylenol (13) Chronic kidney disease, stage 3a: Plan: baseline CrCl 50s stable (14) Urinary retention: Plan: 2nd to UTI? s/p reyes reinsertion 05/04/21 - kept to try and prevent urine exposure to wound but since removed, has been voiding since T x of UTI as above Plan: will need rehab post-d/c cont PT/OT while inpatient --> ambulating 40' x 2 with rolling walker/contact guard. min assist x 1 and occ assist for walker management. ambulating w/ slow gait, narrow base of support. fatigues but continues to slowly improve case management helping with post-d/c disposition --> patient received J&J booster 05/19 (as agreed upon by patient and daughter), should help with placement however could be up to 2 weeks before they are willing to accept. Daughter justin (oldest sibling, no POA) about patient to rehab closer to [place] where nursing ratio to patients lower, however discussed if able to find placement closer sooner will need to consider [facility]. Son also provided additional facilities 05/20 which were relayed to CM and referrals sent Daughter Aline would like daily updates -- did discuss if any specific questions to please call in to speak with provider if needed Admission and Anticipated Discharge Date Admission Date: April 18, 2021 Subjective She is seen at bedside this morning. Reports she feels clinically unchanged. 2- 3/10 discomfort in his sacrum which is better with rest, but worse with movement. Ambulating well today. Denies chest pain, chest pressure, fever, chills, sweats, difficulty breathing, weakness, nausea/vomiting/diarrhea/constipation. Discussed pending biopsy and then initiation of empiric antibiotics. Patient understanding of this. No additional questions/concerns at time of bedside assessment Review of Systems Review of Systems: All systems reviewed & are unremarkable except as noted in Subjective Physical Exam Physical Exam: General: Oriented to name and place. Thin. Pleasant. HEENT: Atraumatic, normocephalic. Visual acuity and hearing grossly intact Pulm: Slight diminished, but with good air movement with effort CTAB A&P. - wheezes, -rales, -rhonchi. Symmetrical chest rise. No increase work of breathing. No respiratory distress. Cardiac: RRR, -mrg. Radial pulses intact and symmetrical. Abdominal: Nontender, nondistended, soft. BS present. Sacrum: Sacral dressing checked, some serous discharge otherwise C/D/I. No surrounding erythema. Results & Data Results & Data ([facility]) Vital Signs (Past 12 Hours) Vital Signs Temp Pulse Resp BP Pulse Ox 05/24/21 07:42 36.7 C 84 16 114/81 93 PG Care Time/CCT Total # of Minutes Spent Total Time Spent with Patient: Total time spent is greater than 50% in coordination of care (as documented) at patient's floor/unit and/or counseling patient: Coding Level of Care Code 29027 Subseq Hosp Care Lvl 2 Diagnoses Sacral decubitus ulcer, stage IV L89.154 Pneumonia due to COVID-19 virus U07.1; J12.82 Dizziness R42 Metabolic encephalopathy G93.41 Parkinsons disease G20 UTI (urinary tract infection) N39.0 Dysphagia R13.10 Hypernatremia E87.0 Hypokalemia E87.6 Diabetes E11.9 Rhabdomyolysis M62.82 Pressure injury of back, stage 2 L89.102 Chronic kidney disease, stage 3a N18.31 Urinary retention R33.9
[2021-05-24] MEDS: risperiDONE 1 MG/ML SOLUTION PO SCH ×2 (21:46→21:52)
[2021-05-25 08:41] LABS: Eosinophils # (auto) 0.05 K/uL (0-0.5); Eosinophils % (auto) 0.7 %; Hematocrit (blood only) 35.5 % (37-47); Hemoglobin 11.3 g/dL (12.0-16.0); Immature Granulocytes # (auto) 0.02 K/uL (0.00-0.02); Immature Granulocytes % (auto) 0.3 %; Lymphocytes # (auto) 1.37 K/uL (1.2-3.4); Lymphocytes % (auto) 18.9 %; Mean Corpuscular Hgb Conc 31.8 g/dL (32-36); Mean Platelet Volume 8.6 fL (7.4-10.4); Monocytes # (auto) 0.58 K/uL (0.11-0.59); Neutrophils # (auto) 5.22 K/uL (1.4-6.5); Neutrophils % (auto) 72.1 %; Platelet Count 383 K/uL (130-400); RDW Coefficient of Variation 14.5 % (11.5-14.5); RDW Standard Deviation 48.6 fL (36.4-46.3); White Blood Count 7.24 K/uL (4.8-10.8)
[2021-05-25] MEDS: PYRIDOXINE HCL 50 MG TAB PO SCH ×2 (08:47→20:19)
[2021-05-25] MEDS: THIAMINE HCL 100 MG TAB PO SCH ×2 (08:47→20:20)
[2021-05-25] MEDS: CARBIDOPA/LEVODOPA 25/100MG TAB PO SCH ×4 (08:47→20:19)
[2021-05-25] MEDS: CHOLECALCIFEROL 1,000 UNITS 25 MCG TAB PO SCH ×2 (08:47→20:19)
[2021-05-25] MEDS: DICLOFENAC SOD 1% GEL 100 GM TUBE EXT SCH ×4 (08:48→20:20)
[2021-05-25] MEDS: DOCUSATE SODIUM/SENNA 50/8.6MG TAB PO SCH (08:48)
[2021-05-25] MEDS: CEROVITE ADV FORMULA TAB PO SCH (08:48)
[2021-05-25] MEDS: ASCORBIC ACID 500 MG TAB PO SCH (08:48)
[2021-05-25] MEDS: ZINC SULFATE 220 MG CAPSULE PO SCH (08:48)
[2021-05-25] MEDS: CYANOCOBALAMIN (VITAMIN B-12) 2,500 MCG TAB.SUBL SL SCH (08:49)
[2021-05-25] MEDS: INSULIN GLARGINE SOLOSTAR 100 UNITS/ML 3 ML PEN SC SCH (08:49)
[2021-05-25] MEDS: POLYETHYLENE (MIRALAX) 17 GM PACK PO SCH (08:49)
[2021-05-25] MEDS: INSULIN ASPART PER UNIT SC SCH ×4 (08:50→21:32)
[2021-05-25 09:19] LABS: BUN Creatinine Ratio 25.2 (10-20); Calcium 9.3 mg/dl (8.5-10.1); Creatinine Clr Calc Pharmacy 51.5 ml/min; Est GFR (African American) 80.6 ml/min; Est GFR (Non-African American) 69.6 ml/min; Potassium 4.1 mmol/L (3.5-5.1)
--- NOTE | 2021-05-25 16:52 | Hospitalist Progress Note ---
Date of Service May 25, 2021 Assessment & Plan (1) Sacral decubitus ulcer, stage IV: Plan: Surgery was consulted on 05/22 at the request of Wound Care as her sacral ulcer was not responding to conservative care. - Debrided by Dr. Simon on 05/22/2021. Wound culture sent at that time. Of note, she has exposed bone from the debridement, so she de facto has osteomyelitis. -Infectious disease consulted, pending recommendations Initial antibiotic therapy deferred at this time. Stable without signs of sepsis, and pending bone biopsy prior to initiation Anticipate prolonged course of IV antibiotics will be required Wound care consult (2) Pneumonia due to COVID-19 virus: Plan: - clinically resolved - NC O2 weaned off 05/03/21 and stable in RA since - s/p 10 day course of dexamethasone -Symptoms resolved, remains asymptomatic No hypoxia Regarding inpatient vaccination status for placement: Patient agreeable to receiving J&J booster as well, but wanted me to also discuss with her daughter. Patient and daughter agreeable to J&J booster to assist in search for bed placement/SNF. Daughter initially thought patient was "clear" and by that she thought mother tested negative for COVID to be taken off of precautions. Discussed that only on isolation for certain number of days and could test positive for several months, and that SNF are requiring patients to be vaccinated at many facilities. Ordered J&J for 05/18 but then patient thought possibly she did have in past -- checked with pharmacy/database and had call to [facility] office and patient never had documentation of receiving this. --> Alerted CM of booster for 05/19, and hopefully will assist with placement. Daughter aline oldest and making decisions. Son on board with patient being too much at home per sister but not keen on idea of rehab however unable to care for her at this time and decision to pursue placement. Monitor for fevers following/discomfort. Tylenol available prn pain/fever Did have a fall evening 05/20 and hit her head --> CT negative for acute process. Fell and caught herself with R hand/knee and imaging all negative for acute fractures --> Tylenol for pain, also ordered topical voltaren as needed as well Updated daughter Aline of fall, bed alarm was not turned back on when aide assisted back to bed from bathroom (patient states that is her reminder "the [place]" that she needs to wait for help to get up) Additional facilities provided by son and discussed with Aline who will review them as well, and patient already on list for 2 of the 5 facilities (3) Dizziness: Plan: Admitted when found down at home, + COVID as above and completed treatment Question of syncope at home, and + murmur on examination without ECHO having been performed as ordered on admission No focal deficit concerning for CVA, sounds more like orthostatic hypotension vs BPPV --> given 500cc NSS and no further dizziness reported Unfortunately had fall as bed alarm not turned on evening 05/20--> CT head negative as above ECHO without significant valvular dysfunction --> done as reported down prior to admission and felt syncopal Meclizine available prn and did get a dose this morning. Continue to monitor (4) Metabolic encephalopathy: Plan: Improved suspect due to COVID encephalopathy, hospital psychosis, UTI, etc. - trialed Risperdal 0.25mg - has helped, and has tolerated the med and discussed with daughter - increased to 0.5 mg and monitor for any symptoms/drowsiness (refused the previous 2 nights before switching to oral solution per discussion with daughter 05/19 and since she has received) MRI brain without acute or subacute CVA; no ICH, tumor, etc. recent b12/tsh wnl Daughter she states that several months ago the patient was a/o x 3 and living independently . Memory issues 05/15 and repeat UA given recent reyes --> coag neg staph, not saprophytic, sensitive to nitrofurantoin. --> Switched from keflex to nitro on 05/18 --> remains on 100mg BID to complete course, would be finished after AM dose on 05/24 Continue empiric thiamine 200mg BID x 1 month - remains stable at this time and answering questions appropriately Per daughter, would like to discuss eval by psych later i I did send a 1255 open your children the week once UTI resolved. Concerns with depression/lack of interest at home over past couple of months. Concerns about weight loss at home --> discussed could try mirtazapine to help with sleep/mood/appetite but would hold off at current moment to not start additional medication that could interact with others and will consider later in the week, as patient likely to remain inpatient xx 2 weeks post booster until SNF able to take (on going search) Aline would like to consider remeron once completed with abx (5) Parkinsons disease: Plan: -Continue with Carbidopa-Levadopa per home dosing --Question some underlying parkinsonian dementia MRI brain neg for acute findings -risperdal low dose 0.5mg HS - has helped delirium,- continue (refused prior 2 evenings), changed to liquid solution after discussion with daughter 05/19 (6) UTI (urinary tract infection): Plan: -E coli during admission -course of Levaquin completed -Reyes discontinued (7) Dysphagia: Plan: -pureed diet -no issues per staff or patient and tolerating well - son also brought dentures 05/20 (8) Hypernatremia: Plan: resolved (9) Hypokalemia: Plan: -resolved (10) Diabetes: Plan: -lantus to 8 units from 5 for elevations in days past, continue SSI improvement in BSGs and will continue current regimen and monitor (11) Rhabdomyolysis: Plan: -RESOLVED -found on floor at her home -- likely cause of rhabdo -COVID can also cause rhabdo (12) Pressure injury of back, stage 2: Plan: Present on admission secondary to patient being found down at home Optifoams, frequent turning, etc wound care saw, santyl's added once daily - will need outpatient F/U ([phone]) cont MVI/vit C/zinc/thiamine waffle cushion for comfort, pain control ordered --> reports improvement in discomfort and no need for medication outside of occasional tylenol (13) Chronic kidney disease, stage 3a: Plan: baseline CrCl 50s stable (14) Urinary retention: Plan: 2nd to UTI? s/p reyes reinsertion 05/04/21 - kept to try and prevent urine exposure to wound but since removed, has been voiding since T x of UTI as above Plan: will need rehab post-d/c cont PT/OT while inpatient --> ambulating 40' x 2 with rolling walker/contact guard. min assist x 1 and occ assist for walker management. ambulating w/ slow gait, narrow base of support. fatigues but continues to slowly improve case management helping with post-d/c disposition --> patient received J&J booster 05/19 (as agreed upon by patient and daughter), should help with placement however could be up to 2 weeks before they are willing to accept. Daughter justin (oldest sibling, no POA) about patient to rehab closer to [place] where nursing ratio to patients lower, however discussed if able to find placement closer sooner will need to consider given lack of beds across the [facility]. Son also provided additional facilities 05/20 which were relayed to CM and referrals sent Daughter Aline would like daily updates -- did discuss if any specific questions to please call in to speak with provider if needed Admission and Anticipated Discharge Date Admission Date: April 18, 2021 Subjective Patient in no distress at bedside. Resting comfortably at time of assessment, oriented to name and place not to date. Had dressing change today. Reports pain is okay while resting. No chest pain/chest pressure/shortness of breath/difficulty breathing Review of Systems Review of Systems: All systems reviewed & are unremarkable except as noted in Subjective Physical Exam Physical Exam: General: Oriented to name and place. Thin. Pleasant, no distress. HEENT: Atraumatic, normocephalic. Visual acuity and hearing grossly intact Pulm: Slight diminished, but with good air movement with effort CTAB A&P. - wheezes, -rales, -rhonchi. Symmetrical chest rise. No increase work of breathing. No respiratory distress. Cardiac: RRR, -mrg. Radial pulses intact and symmetrical. Abdominal: Nontender, nondistended, soft. BS present. Sacrum: . Sacral dressing intact, C/D/I. No surrounding erythema. Results & Data Results & Data ([facility]) Vital Signs (Past 12 Hours) Vital Signs Temp Pulse Resp BP Pulse Ox 05/25/21 16:41 37.3 C 79 18 103/67 94 05/25/21 08:46 37.1 C 86 18 117/73 92 PG Care Time/CCT Total # of Minutes Spent Total Time Spent with Patient: Total time spent is greater than 50% in coordination of care (as documented) at patient's floor/unit and/or counseling patient: Coding Level of Care Code 57693 Subseq Hosp Care Lvl 1 Diagnoses Sacral decubitus ulcer, stage IV L89.154 Pneumonia due to COVID-19 virus U07.1; J12.82 Dizziness R42 Metabolic encephalopathy G93.41 Parkinsons disease G20 UTI (urinary tract infection) N39.0 Dysphagia R13.10 Hypernatremia E87.0 Hypokalemia E87.6 Diabetes E11.9 Rhabdomyolysis M62.82 Pressure injury of back, stage 2 L89.102 Chronic kidney disease, stage 3a N18.31 Urinary retention R33.9
[2021-05-25] MEDS: risperiDONE 1 MG/ML SOLUTION PO SCH (20:20)
[2021-05-26] MEDS: INSULIN GLARGINE SOLOSTAR 100 UNITS/ML 3 ML PEN SC SCH (08:21)
[2021-05-26] MEDS: ZINC SULFATE 220 MG CAPSULE PO SCH (08:21)
[2021-05-26] MEDS: THIAMINE HCL 100 MG TAB PO SCH ×2 (08:21→19:40)
[2021-05-26] MEDS: PYRIDOXINE HCL 50 MG TAB PO SCH ×2 (08:21→19:40)
[2021-05-26] MEDS: CEROVITE ADV FORMULA TAB PO SCH (08:21)
[2021-05-26] MEDS: CYANOCOBALAMIN (VITAMIN B-12) 2,500 MCG TAB.SUBL SL SCH (08:22)
[2021-05-26] MEDS: DICLOFENAC SOD 1% GEL 100 GM TUBE EXT SCH ×3 (08:22→19:43)
[2021-05-26] MEDS: CARBIDOPA/LEVODOPA 25/100MG TAB PO SCH ×4 (08:22→19:42)
[2021-05-26] MEDS: CHOLECALCIFEROL 1,000 UNITS 25 MCG TAB PO SCH ×2 (08:22→19:43)
[2021-05-26] MEDS: ASCORBIC ACID 500 MG TAB PO SCH (08:22)
[2021-05-26] MEDS: POLYETHYLENE (MIRALAX) 17 GM PACK PO SCH (08:22)
[2021-05-26] MEDS: DOCUSATE SODIUM/SENNA 50/8.6MG TAB PO SCH (08:22)
[2021-05-26] MEDS: INSULIN ASPART PER UNIT SC SCH ×4 (08:23→21:04)
--- NOTE | 2021-05-26 09:34 | Hospitalist Progress Note ---
Date of Service May 26, 2021 Assessment & Plan (1) Sacral decubitus ulcer, stage IV: Plan: Surgery was consulted on 05/22 at the request of Wound Care as her sacral ulcer was not responding to conservative care. - Debrided by Dr. Simon on 05/22/2021 - Wound culture sent at that time. Of note, she has exposed bone from the debridement, so she de facto has osteomyelitis. - Consulted ID - Defer initiating antibiotic therapy at this time. She is hemodynamically stab le without any signs of sepsis. Repeat wound culture today (05/26). Could qualify for a wound vac, so may need to initiate abx for that reason. (2) Pneumonia due to COVID-19 virus: Plan: clinically resolved - NC O2 weaned off 05/03/21 and stable in RA since - s/p 10 day course of dexamethasone - no symptoms at this time 94% on RA Regarding inpatient vaccination status for placement: Patient agreeable to receiving J&J booster as well, but wanted me to also discuss with her daughter. Patient and daughter agreeable to J&J booster to assist in search for bed placement/SNF. Daughter initially thought patient was "clear" and by that she thought mother tested negative for COVID to be taken off of precautions. Discussed that only on isolation for certain number of days and could test positive for several months, and that SNF are requiring patients to be vaccinated at many facilities. Ordered J&J for 05/18 but then patient thought possibly she did have in past -- checked with pharmacy/database and had call to [facility] office and patient never had documentation of receiving this. --> Alerted CM of booster for 05/19, and hopefully will assist with placement. Daughter crystal oldest and making decisions. Son on board with patient being too much at home per sister but not keen on idea of rehab however unable to care for her at this time and decision to pursue placement. Monitor for fevers following/discomfort. Tylenol available prn pain/fever (3) Dizziness: Plan: Admitted when found down at home, + COVID as above and completed treatment Question of syncope at home, and + murmur on examination without ECHO having been performed as ordered on admission No focal deficit concerning for CVA, sounds more like orthostatic hypotension vs BPPV --> given 500cc NSS and no further dizziness reported Unfortunately had fall as bed alarm not turned on evening 05/20--> CT head negative as above ECHO without significant valvular dysfunction --> done as reported down prior to admission and felt syncopal Meclizine available prn and did get a dose this morning. Continue to monitor (4) Metabolic encephalopathy: Plan: suspect due to COVID encephalopathy, hospital psychosis, UTI, etc. - trialed Risperdal 0.25mg - has helped, and has tolerated the med and discussed with daughter - increased to 0.5 mg and monitor for any symptoms/drowsiness (refused the previous 2 nights before switching to oral solution per discussion with daughter 05/19 and since she has received) MRI brain without acute or subacute CVA; no ICH, tumor, etc. recent b12/tsh wnl Daughter she states that several months ago the patient was a/o x 3 and living independently . Memory issues 05/15 and repeat UA given recent reyes --> coag neg staph, not saprophytic, sensitive to nitrofurantoin. --> Switched from keflex to nitro on 05/18 --> remains on 100mg BID to complete course, would be finished after AM dose on 05/24 Continue empiric thiamine 200mg BID x 1 month - remains stable at this time and answering questions appropriately (5) Parkinsons disease: Plan: Continue with Carbidopa-Levadopa per home dosing --> resumed AM as just fell off MAR last evening --does she have underlying dementia from PD?? MRI brain neg for acute findings -risperdal low dose 0.5mg HS - has helped delirium - continue (refused prior 2 evenings), changed to liquid solution after discussion with daughter 05/19 and she did take last evening and appeared more rested today but RN did note did have some agitation overnight but was able to be calmed down by staff (6) UTI (urinary tract infection): Plan: -E coli during admission-course of Levaquin completed (7) Dysphagia: Plan: -pureed diet -no issues per staff or patient and tolerating well (8) Hypernatremia: Plan: resolved (9) Hypokalemia: Plan: -resolved (10) Diabetes: Plan: -lantus to 8 units from 5 for elevations in days past, continue SSI improvement in BSGs and will continue current regimen and monitor (11) Rhabdomyolysis: Plan: -RESOLVED -found on floor at her home -- likely cause of rhabdo -COVID can also cause rhabdo (12) Pressure injury of back, stage 2: Plan: Present on admission secondary to patient being found down at home Optifoams, frequent turning, etc wound care saw, narda's added once daily - will need outpatient F/U ([phone]) cont MVI/vit C/zinc/thiamine waffle cushion for comfort, pain control ordered --> reports improvement in discomfort and no need for medication outside of occasional tylenol (13) Chronic kidney disease, stage 3a: Plan: baseline CrCl 50s stable (14) Urinary retention: Plan: 2nd to UTI? s/p reyes reinsertion 05/04/21 - kept to try and prevent urine exposure to wound but since removed, has been voiding since T x of UTI as above Plan: will need rehab post-d/c cont PT/OT while inpatient --> ambulating 40' x 2 with rolling walker/contact guard. min assist x 1 and occ assist for walker management. ambulating w/ slow gait, narrow base of support. fatigues but continues to slowly improve case management helping with post-d/c disposition --> patient received J&J booster 05/19 (as agreed upon by patient and daughter), should help with placement however could be up to 2 weeks before they are willing to accept. Daughter justin (oldest sibling, no POA) about patient to rehab closer to [place] where nursing ratio to patients lower, however discussed if able to find placement closer sooner will need to consider given lack of beds across the [facility]. Son also provided additional facilities 05/20 which were relayed to CM and referrals sent Daughter Ailne would like daily updates -- did discuss if any specific questions to please call in to speak with provider if needed Admission and Anticipated Discharge Date Admission Date: April 18, 2021 Subjective No pain today. Bottom feels ok. Reports no fevers/chills, chest pain, shortness of breath, abdominal pain, nausea, or vomiting. Physical Exam Constitutional: WD/WN, vitals as above Eyes: EOM intact bilaterally; no conjunctival abnormality ENMT: external ear and nose normal, oropharynx normal Neck: trachea midline, no thyromegaly normal visual inspection Respiratory: normal respiratory effort, lungs clear to auscultation no respiratory distress Cardiovascular: RRR, no murmur, no edema Gastrointestinal (Abdomen): Inspection/Auscultation: abdomen normal to inspection; abdomen not distended Musculoskeletal: no cyanosis or clubbing, extremities motor strength 5/5 Skin: no rashes, warm and dry + wound (Sacral wound with purulence. Probes to bone.) Neurologic: moves all extremities and awake Psychiatric: Orientation: alert, oriented to person and cooperative Results & Data Results & Data ([facility]) Vital Signs (Past 12 Hours) Vital Signs Temp Pulse Resp BP Pulse Ox 05/26/21 07:43 37.2 C 82 16 110/68 96 05/25/21 23:24 36.7 C 85 15 110/59 L 92 PG Care Time/CCT Total # of Minutes Spent Total Time Spent with Patient: Total time spent is greater than 50% in coordination of care (as documented) at patient's floor/unit and/or counseling patient: Coding Level of Care Code 82912 Subseq Hosp Care Lvl 2 Diagnoses Sacral decubitus ulcer, stage IV L89.154 Pneumonia due to COVID-19 virus U07.1; J12.82 Dizziness R42 Metabolic encephalopathy G93.41 Parkinsons disease G20 UTI (urinary tract infection) N39.0 Dysphagia R13.10 Hypernatremia E87.0 Hypokalemia E87.6 Diabetes E11.9 Rhabdomyolysis M62.82 Pressure injury of back, stage 2 L89.102 Chronic kidney disease, stage 3a N18.31 Urinary retention R33.9
[2021-05-26] MEDS: cefTRIAXone SODIUM 2,000 MG in DEXTROSE 5% 50 ML IV SCH (18:28)
[2021-05-26] MEDS: risperiDONE 1 MG/ML SOLUTION PO SCH (19:41)
[2021-05-26] MEDS: metroNIDAZOLE 500 MG TAB PO SCH (21:05)
[2021-05-27 08:42] LABS: Hematocrit (blood only) 35.9 % (37-47); Hemoglobin 11.3 g/dL (12.0-16.0); Mean Corpuscular Hemoglobin 28.6 pg (25-34); Mean Corpuscular Hgb Conc 31.5 g/dL (32-36); Mean Corpuscular Volume 90.9 fL (80-100); Platelet Count 413 K/uL (130-400); RDW Coefficient of Variation 14.3 % (11.5-14.5); RDW Standard Deviation 47.3 fL (36.4-46.3); Red Blood Count 3.95 M/uL (4.2-5.4); White Blood Count 7.97 K/uL (4.8-10.8)
[2021-05-27] MEDS: PYRIDOXINE HCL 50 MG TAB PO SCH ×2 (09:13→19:19)
[2021-05-27] MEDS: ZINC SULFATE 220 MG CAPSULE PO SCH (09:13)
[2021-05-27] MEDS: THIAMINE HCL 100 MG TAB PO SCH ×2 (09:13→19:18)
[2021-05-27] MEDS: CEROVITE ADV FORMULA TAB PO SCH (09:14)
[2021-05-27] MEDS: CHOLECALCIFEROL 1,000 UNITS 25 MCG TAB PO SCH ×2 (09:14→19:18)
[2021-05-27] MEDS: DOCUSATE SODIUM/SENNA 50/8.6MG TAB PO SCH (09:14)
[2021-05-27] MEDS: DICLOFENAC SOD 1% GEL 100 GM TUBE EXT SCH ×3 (09:14→19:20)
[2021-05-27] MEDS: metroNIDAZOLE 500 MG TAB PO SCH ×3 (09:14→19:19)
[2021-05-27] MEDS: CYANOCOBALAMIN (VITAMIN B-12) 2,500 MCG TAB.SUBL SL SCH (09:14)
[2021-05-27] MEDS: POLYETHYLENE (MIRALAX) 17 GM PACK PO SCH (09:14)
[2021-05-27] MEDS: ASCORBIC ACID 500 MG TAB PO SCH (09:14)
[2021-05-27] MEDS: INSULIN GLARGINE SOLOSTAR 100 UNITS/ML 3 ML PEN SC SCH (09:15)
[2021-05-27] MEDS: CARBIDOPA/LEVODOPA 25/100MG TAB PO SCH ×4 (09:15→19:17)
[2021-05-27] MEDS: INSULIN ASPART PER UNIT SC SCH ×4 (09:16→20:47)
[2021-05-27 09:19] LABS: BUN Creatinine Ratio 22.9 (10-20); Calcium 9.1 mg/dl (8.5-10.1); Creatinine Clr Calc Pharmacy 45.8 ml/min; Est GFR (Non-African American) 60.4 ml/min; Magnesium 2.3 mg/dl (1.8-2.4); Potassium 3.9 mmol/L (3.5-5.1)
--- NOTE | 2021-05-27 13:20 | Surgery Progress Note ---
Date of Service May 27, 2021 Assessment & Plan (1) Sacral decubitus ulcer, stage IV: Plan: pt is a 76 year-old female who is asked for consult debridement sacral ulcer, IMP: sacral ulcer, Plan, I recommend to do debridement sacral ulcer at bedside, D/W benefits, risks and alternatives of the the procedure with pt and pt's daughter Aline( on phone), the risks - infection, bleeding, may need more procedure, they understood, pt's daughter gave the consent on the phone, I answered all questions, at bed side, after time out, apply betadine on wound, remove necrotic tissue, deep to close bone, minimal active bleeding after apply pressure the bleeding is stop, wound culture sent, apply bacitricin on wound cover 4X4 gouze, pt tolerated the procedure well, pt did not feel any pain, the nurse at bedside assist me, wound care nurse change dressing once a day, will F/U 05/27/2021 1:23PM pt is doing better, no fever, normal WBC, wound culture G+ Cocci continue treatment, dressing change by wound care nurse once a day, sign off today, please call with questions, thanks, Admission and Anticipated Discharge Date Admission Date: April 18, 2021 Supervising Physician Co-Signing Physician Notes PA Supervision Note: I did not personally see or examine the patient today, but I verified all bahena points of RAVI Knapp's assessment and plan with the following exceptions/additions: None Subjective No pain today. Bottom feels ok. Reports no fevers/chills, chest pain, shortness of breath, abdominal pain, nausea, or vomiting. 05/27/2021 1:21PM Dr. Smion pt feels better, no pain, no fever, wound culture- G+ Cocci Review of Systems Constitutional: as per Subjective / HPI Eyes: as per Subjective / HPI Respiratory: pneumonia-COVID Cardiovascular: Additional Comments: HLD Gastrointestinal: dysphagia Genitourinary: urinary retention, chronic kidney disease stage 3a Musculoskeletal: pressure injury of back Neurologic: Parkinsons disease, metabolic encephalopathy Psychiatric: as per Subjective / HPI Endocrine: DM Hematologic / Lymphatic: as per Subjective / HPI Physical Exam Eyes: PERRL, conjunctivae normal, anicteric sclerae Neck: trachea midline, no thyromegaly Respiratory: normal respiratory effort, lungs clear to auscultation Cardiovascular: RRR, no murmur, no edema Gastrointestinal (Abdomen): normal bowel sounds, soft, nontender, no hepatosplenomegaly Skin: the sacral wound is dry, less redness, Neurologic: patellar DTR's 2+ bilat, sensation intact Psychiatric: Orientation: alert Results & Data ([facility]) Vital Signs (Past 12 Hours) Vital Signs Temp Pulse Resp BP Pulse Ox 05/27/21 07:46 36.9 C 95 H 16 118/76 96 Laboratory Results Abnormal lab results 05/26/21 05/26/21 05/27/21 Range/Units 18:20 20:35 07:55 RBC (4.2-5.4) M/uL Hgb (12.0-16.0) g/dL Hct (37-47) % MCHC (32-36) g/dL RDW Std Deviation (36.4-46.3) fL Plt Count (130-400) K/uL BUN (7-18) mg/dl BUN/Creatinine Ratio (10-20) Glucose (70-99) mg/dl POC Glucose 230 H 204 H (70-99) mg/dl C-Reactive Protein 3.40 H (0-0.29) mg/dl 05/27/21 05/27/21 05/27/21 Range/Units 08:15 08:15 11:46 RBC 3.95 L (4.2-5.4) M/uL Hgb 11.3 L (12.0-16.0) g/dL Hct 35.9 L (37-47) % MCHC 31.5 L (32-36) g/dL RDW Std Deviation 47.3 H (36.4-46.3) fL Plt Count 413 H (130-400) K/uL BUN 21 H (7-18) mg/dl BUN/Creatinine Ratio 22.9 H (10-20) Glucose 211 H (70-99) mg/dl POC Glucose 202 H (70-99) mg/dl C-Reactive Protein (0-0.29) mg/dl
--- NOTE | 2021-05-27 14:56 | Hospitalist Progress Note ---
Date of Service May 27, 2021 Assessment & Plan (1) Sacral decubitus ulcer, stage IV: Plan: Surgery was consulted on 05/22 at the request of Wound Care as her sacral ulcer was not responding to conservative care. - Debrided by Dr. Simon on 05/22/2021 - Wound culture sent at that time. Of note, she has exposed bone from the debridement, so she de facto has osteomyelitis. - Consulted ID -> Plan for 6 weeks of abx therapy. - Plan for wound vac tomorrow. Will plan for 6 weeks of vanc/ertapenem. 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 - trialed Risperdal 0.25mg - has helped, and has tolerated the med and discussed with daughter - increased to 0.5 mg and monitor for any symptoms/drowsiness (refused the previous 2 nights before switching to oral solution per discussion with daughter 05/19 and since she has received) MRI brain without acute or subacute CVA; no ICH, tumor, etc. recent b12/tsh wnl Daughter she states that several months ago the patient was a/o x 3 and living independently . Memory issues 05/15 and repeat UA given recent reyes --> coag neg staph, not saprophytic, sensitive to nitrofurantoin. Continue empiric thiamine 200mg BID x 1 month - remains stable at this time and answering questions appropriately - Presently doing well on risperidone 0.5 mg PO HS. Daughter asked about mirtazapine, but I'm not sure she really needs it. She is sleeping well with the risperidone and is awake and pleasant and doesn't seem depressed. I did recommend conservative measures rather than adding extra medication. (3) Pneumonia due to COVID-19 virus: Plan: clinically resolved - NC O2 weaned off 05/03/21 and stable in RA since - s/p 10 day course of dexamethasone - no symptoms at this time 94% on RA Regarding inpatient vaccination status for placement: Patient agreeable to receiving J&J booster as well, but wanted me to also discuss with her daughter. Patient and daughter agreeable to J&J booster to assist in search for bed placement/SNF. Daughter initially thought patient was "clear" and by that she thought mother tested negative for COVID to be taken off of precautions. Discussed that only on isolation for certain number of days and could test positive for several months, and that SNF are requiring patients to be vaccinated at many facilities. Ordered J&J for 05/18 but then patient thought possibly she did have in past -- checked with pharmacy/database and had call to [facility] office and patient never had documentation of receiving this. --> Alerted CM of booster for 05/19, and hopefully will assist with placement. Daughter crystal oldest and making decisions. Son on board with patient being too much at home per sister but not keen on idea of rehab however unable to care for her at this time and decision to pursue placement. Monitor for fevers following/discomfort. Tylenol available prn pain/fever (4) Dizziness: Plan: Admitted when found down at home, + COVID as above and completed treatment Question of syncope at home, and + murmur on examination without ECHO having been performed as ordered on admission No focal deficit concerning for CVA, sounds more like orthostatic hypotension vs BPPV --> given 500cc NSS and no further dizziness reported Unfortunately had fall as bed alarm not turned on evening 05/20--> CT head negative as above ECHO without significant valvular dysfunction --> done as reported down prior to admission and felt syncopal Meclizine available prn and did get a dose this morning. Continue to monitor (5) Parkinsons disease: Plan: Continue with Carbidopa-Levadopa per home dosing --> resumed AM as just fell off MAR last evening --does she have underlying dementia from PD?? MRI brain neg for acute findings -risperdal low dose 0.5mg HS - has helped delirium - continue (refused prior 2 evenings), changed to liquid solution after discussion with daughter 05/19 and she did take last evening and appeared more rested today but RN did note did have some agitation overnight but was able to be calmed down by staff (6) UTI (urinary tract infection): Plan: -E coli during admission-course of Levaquin completed (7) Dysphagia: Plan: -pureed diet -no issues per staff or patient and tolerating well (8) Hypernatremia: Plan: resolved (9) Hypokalemia: Plan: -resolved (10) Diabetes: Plan: -lantus to 8 units from 5 for elevations in days past, continue SSI improvement in BSGs and will continue current regimen and monitor (11) Rhabdomyolysis: Plan: -RESOLVED -found on floor at her home -- likely cause of rhabdo -COVID can also cause rhabdo (12) Pressure injury of back, stage 2: Plan: Present on admission secondary to patient being found down at home Optifoams, frequent turning, etc wound care saw, santyl's added once daily - will need outpatient F/U ([phone]) cont MVI/vit C/zinc/thiamine waffle cushion for comfort, pain control ordered --> reports improvement in discomfort and no need for medication outside of occasional tylenol (13) Chronic kidney disease, stage 3a: Plan: baseline CrCl 50s stable (14) Urinary retention: Plan: 2nd to UTI? s/p reyes reinsertion 05/04/21 - kept to try and prevent urine exposure to wound but since removed, has been voiding since T x of UTI as above Plan: will need rehab post-d/c cont PT/OT while inpatient --> ambulating 40' x 2 with rolling walker/contact guard. min assist x 1 and occ assist for walker management. ambulating w/ slow gait, narrow base of support. fatigues but continues to slowly improve case management helping with post-d/c disposition --> patient received J&J booster 05/19 (as agreed upon by patient and daughter), should help with placement however could be up to 2 weeks before they are willing to accept. Daughter justin (oldest sibling, no POA) about patient to rehab closer to [place] where nursing ratio to patients lower, however discussed if able to find placement closer sooner will need to consider given lack of beds across the [facility]. Son also provided additional facilities 05/20 which were relayed to CM and referrals sent Daughter Aline would like daily updates -- did discuss if any specific questions to please call in to speak with provider if needed Admission and Anticipated Discharge Date Admission Date: April 18, 2021 Subjective Doing well today. No major pain in the sacral area. Reports no fevers/chills, ch est pain, shortness of breath, abdominal pain, nausea, or vomiting. Physical Exam Constitutional: WD/WN, vitals as above Eyes: EOM intact bilaterally; no conjunctival abnormality ENMT: external ear and nose normal, oropharynx normal Neck: trachea midline, no thyromegaly normal visual inspection Respiratory: normal respiratory effort, lungs clear to auscultation no respiratory distress Cardiovascular: RRR, no murmur, no edema Gastrointestinal (Abdomen): Inspection/Auscultation: abdomen normal to inspection; abdomen not distended Musculoskeletal: no cyanosis or clubbing, extremities motor strength 5/5 Skin: no rashes, warm and dry + wound (Sacral wound with purulence. Probes to bone.) Neurologic: moves all extremities and awake Psychiatric: Orientation: alert, oriented to person and cooperative Results & Data Results & Data ([facility]) Vital Signs (Past 12 Hours) Vital Signs Temp Pulse Resp BP Pulse Ox 05/27/21 07:46 36.9 C 95 H 16 118/76 96 PG Care Time/CCT Total # of Minutes Spent Total Time Spent with Patient: Total time spent is greater than 50% in coordination of care (as documented) at patient's floor/unit and/or counseling patient: Coding Level of Care Code 02714 Subseq Hosp Care Lvl 2 Diagnoses Sacral decubitus ulcer, stage IV L89.154 Pneumonia due to COVID-19 virus U07.1; J12.82 Dizziness R42 Metabolic encephalopathy G93.41 Parkinsons disease G20 UTI (urinary tract infection) N39.0 Dysphagia R13.10 Hypernatremia E87.0 Hypokalemia E87.6 Diabetes E11.9 Rhabdomyolysis M62.82 Pressure injury of back, stage 2 L89.102 Chronic kidney disease, stage 3a N18.31 Urinary retention R33.9
[2021-05-27] MEDS: cefTRIAXone SODIUM 2,000 MG in DEXTROSE 5% 50 ML IV SCH (17:59)
[2021-05-27] MEDS: risperiDONE 1 MG/ML SOLUTION PO SCH (19:17)
[2021-05-28] MEDS: INSULIN ASPART PER UNIT SC SCH ×4 (08:26→20:41)
[2021-05-28] MEDS: INSULIN GLARGINE SOLOSTAR 100 UNITS/ML 3 ML PEN SC SCH (08:26)
[2021-05-28] MEDS: CEROVITE ADV FORMULA TAB PO SCH (08:28)
[2021-05-28] MEDS: ASCORBIC ACID 500 MG TAB PO SCH (08:28)
[2021-05-28] MEDS: POLYETHYLENE (MIRALAX) 17 GM PACK PO SCH (08:28)
[2021-05-28] MEDS: CHOLECALCIFEROL 1,000 UNITS 25 MCG TAB PO SCH ×2 (08:28→19:37)
[2021-05-28] MEDS: CARBIDOPA/LEVODOPA 25/100MG TAB PO SCH ×4 (08:28→19:39)
[2021-05-28] MEDS: PYRIDOXINE HCL 50 MG TAB PO SCH ×2 (08:29→19:39)
[2021-05-28] MEDS: THIAMINE HCL 100 MG TAB PO SCH ×2 (08:29→19:39)
[2021-05-28] MEDS: CYANOCOBALAMIN (VITAMIN B-12) 2,500 MCG TAB.SUBL SL SCH (08:29)
[2021-05-28] MEDS: DICLOFENAC SOD 1% GEL 100 GM TUBE EXT SCH ×3 (08:29→19:40)
[2021-05-28] MEDS: ZINC SULFATE 220 MG CAPSULE PO SCH (08:29)
[2021-05-28] MEDS: metroNIDAZOLE 500 MG TAB PO SCH ×3 (08:29→19:38)
[2021-05-28] MEDS: DOCUSATE SODIUM/SENNA 50/8.6MG TAB PO SCH (08:29)
[2021-05-28] MEDS: ENOXAPARIN INJ 30 MG/0.3 ML SYR SQ SCH (08:30)
--- NOTE | 2021-05-28 15:05 | XRay Report ---
XR chest 1V portable HISTORY: right PICC tip confirmation COMPARISON: Chest 05/21/2021. FINDINGS: The tip of the right PICC terminates in the expected location of the right subclavian/brach iocephalic junction. No pneumothorax. No pleural effusions. The heart is normal in size. Stable perip heral densities are noted. This may represent areas of scarring. Calcified left hilar lymph nodes and calcified left lower lobe granulomas. IMPRESSION: The tip of the right PICC terminates at the expected location of the right subclavian/brachiocephalic junction. ACT 112: Negative or not required by law. Electronically signed by: Miguel Mancilla M.D. 05/28/2021 3:04 PM
[2021-05-28] MEDS: cefTRIAXone SODIUM 2,000 MG in DEXTROSE 5% 50 ML IV SCH (18:10)
--- NOTE | 2021-05-28 18:20 | XRay Report ---
SINGLE VIEW CHEST CLINICAL HISTORY: PICC positioning. FINDINGS: An AP, portable, upright chest radiograph is compared to study performed earlier the same d ay 05/28/2021. A right PICC line is been repositioned. The tip is coiled in the internal jugular vein. The cardiomediastinal silhouette is unremarkable noting atherosclerotic calcification of the thoracic aorta. Chronic interstitial thickening is similar to previous. No airspace consolidation or large pl eural effusion is identified. Calcified granulomas are noted in the left lower lung. No pneumothorax is seen. The skeletal structures are osteopenic. The bony thorax is grossly intact. IMPRESSION: 1. The tip of the PICC line is coiled in the internal jugular vein. Repositioning is indicated. 2. There is no airspace consolidation or pleural effusion. ACT 112: Negative or not required by law. Electronically signed by: Edy Jett M.D. 05/28/2021 6:19 PM
[2021-05-28] MEDS: risperiDONE 1 MG/ML SOLUTION PO SCH (19:38)
--- NOTE | 2021-05-28 19:41 | Hospitalist Progress Note ---
Date of Service May 28, 2021 Assessment & Plan (1) Sacral decubitus ulcer, stage IV: Plan: Surgery was consulted on 05/22 at the request of Wound Care as her sacral ulcer was not responding to conservative care. - Debrided by Dr. Simon on 05/22/2021 - Wound culture sent at that time. Of note, she has exposed bone from the debridement, so she de facto has osteomyelitis. - Wound culture showing Bacteroides and anaerobic gram-positive bacilli - Consulted ID -> Plan for 6 weeks of abx therapy. - Plan for wound as guided by general surgery. 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 - trialed Risperdal 0.25mg - has helped, and has tolerated the med and discussed with daughter - increased to 0.5 mg and monitor for any symptoms/drowsiness (refused the previous 2 nights before switching to oral solution per discussion with daughter 05/19 and since she has received) MRI brain without acute or subacute CVA; no ICH, tumor, etc. recent b12/tsh wnl Daughter she states that several months ago the patient was a/o x 3 and living independently . Memory issues 05/15 and repeat UA given recent reyes --> coag neg staph, not saprophytic, sensitive to nitrofurantoin. Continue empiric thiamine 200mg BID x 1 month - remains stable at this time and answering questions appropriately - Presently doing well on risperidone 0.5 mg PO HS. Daughter asked about mirtazapine, but I'm not sure she really needs it. She is sleeping well with the risperidone and is awake and pleasant and doesn't seem depressed. I did recommend conservative measures rather than adding extra medication. (3) Pneumonia due to COVID-19 virus: Plan: clinically resolved - NC O2 weaned off 05/03/21 and stable in RA since - s/p 10 day course of dexamethasone - no symptoms at this time 94% on RA Received J&J COVID vaccine for 05/19, and hopefully will assist with placement. (4) Dizziness: Plan: Admitted when found down at home, + COVID as above and completed treatment Question of syncope at home, and + murmur on examination without ECHO having been performed as ordered on admission No focal deficit concerning for CVA, sounds more like orthostatic hypotension vs BPPV --> given 500cc NSS and no further dizziness reported Unfortunately had fall as bed alarm not turned on evening 05/20--> CT head negative as above ECHO without significant valvular dysfunction --> done as reported down prior to admission and felt syncopal Meclizine available prn and did get a dose this morning. Continue to monitor (5) Parkinsons disease: Plan: Continue with Carbidopa-Levadopa per home dosing --does she have underlying dementia from PD?? MRI brain neg for acute findings -risperdal low dose 0.5mg HS - has helped delirium - continue (6) UTI (urinary tract infection): Plan: -E coli during admission-course of Levaquin completed (7) Dysphagia: Plan: -pureed diet -no issues per staff or patient and tolerating well (8) Hypernatremia: Plan: resolved (9) Hypokalemia: Plan: -resolved (10) Diabetes: Plan: No hemoglobin A1c in the chart for 2 years Blood sugars here have been on the lower side for someone of her age and comorbidities Continue Lantus 8 units once daily For NovoLog, change scale to 100-140, increase correction factor to 35, and loosen carbohydrate ratio to 15 (11) Rhabdomyolysis: Plan: -RESOLVED -found on floor at her home -- likely cause of rhabdo -COVID can also cause rhabdo (12) Pressure injury of back, stage 2: Plan: Present on admission secondary to patient being found down at home Optifoams, frequent turning, etc wound care saw, narda's added once daily - will need outpatient F/U ([phone]) cont MVI/vit C/zinc/thiamine waffle cushion for comfort, pain control ordered --> reports improvement in discomfort and no need for medication outside of occasional tylenol (13) Chronic kidney disease, stage 3a: Plan: baseline CrCl 50s stable (14) Urinary retention: Plan: 2nd to UTI? s/p reyes reinsertion 05/04/21 - Reyes catheter removed on 05/17 No issues Plan: will need rehab post-d/c cont PT/OT while inpatient case management helping with post-d/c disposition --> patient received J&J booster 05/19 (as agreed upon by patient and daughter), should help with placement however could be up to 2 weeks before they are willing to accept. Daughter justin (oldest sibling, no POA) about patient to rehab closer to [facility] where nursing ratio to patients lower, however discussed if able to find placement closer sooner will need to consider given lack of beds across the [facility]. Son also provided additional facilities 05/20 which were relayed to CM and referrals sent Daughter Aline would like daily updates -- did discuss if any specific questions to please call in to speak with provider if needed Admission and Anticipated Discharge Date Admission Date: April 18, 2021 Supervising Physician Co-Signing Physician Notes RAVI Supervision Note: I did not personally see or examine the patient today, but I verified all bahena points of RAVI Salcedo's assessment and plan with the following exceptions/additions: None Subjective Patient seen on daily rounds today. Sitting upright in the chair. Denies F/C, CP, shortness of breath, abdominal pain, nausea or vomiting. Nursing voices no complaints or concerns. Review of Systems Review of Systems: All systems reviewed and are unremarkable except as noted in HPI and below Denies fevers, chills, headache, nasal congestion, sore throat, cough, chest pain, shortness of breath, palpitations, orthopnea, PND, abdominal pain, nausea, vomiting, diarrhea, constipation, dysuria, hematuria, frequency, back pain, joint pain or swelling, easy bruising or bleeding, skin lesions or rashes. Physical Exam Physical Exam: General: Resting comfortably in her bedside chair. She does not appear ill or toxic. NAD. HEENT: Head is AT/NC buccal mucosa is moist and pink Neck: No JVD. Negative hepatojugular reflex Cardiac: RRR with 1/6 MADELINE Lungs: CTA without W/R/R Abdomen: Normoactive X4. Soft and nontender in all quadrants. Extremities: No peripheral clubbing cyanosis or edema Neuro: Oriented to place/self/situation. Cranial nerves II through XII are grossly intact no focal neuro deficits Skin: No obvious skin lesions or rashes Psych: Appropriate affect pleasant and cooperative Results & Data Results & Data ([facility]) Vital Signs (Past 12 Hours) Vital Signs Temp Pulse Resp BP Pulse Ox 05/28/21 15:41 37.1 C 114 H 16 133/72 94 05/28/21 07:47 36.4 C L 97 H 14 113/72 96 Laboratory Results 05/27/21 08:15 05/27/21 08:15 PG Care Time/CCT Total # of Minutes Spent Total Time Spent with Patient: Total time spent is greater than 50% in coordination of care (as documented) at patient's floor/unit and/or counseling patient: Coding Level of Care Code 74687 Subseq Hosp Care Lvl 2 Diagnoses Sacral decubitus ulcer, stage IV L89.154 Metabolic encephalopathy G93.41 Pneumonia due to COVID-19 virus U07.1; J12.82 Dizziness R42 Parkinsons disease G20 UTI (urinary tract infection) N39.0 Dysphagia R13.10 Hypernatremia E87.0 Hypokalemia E87.6 Diabetes E11.9 Rhabdomyolysis M62.82 Pressure injury of back, stage 2 L89.102 Chronic kidney disease, stage 3a N18.31 Urinary retention R33.9
--- NOTE | 2021-05-28 20:22 | XRay Report ---
SINGLE VIEW CHEST CLINICAL HISTORY: PICC positioning. FINDINGS: An AP, portable, upright chest radiograph is compared to study performed earlier the same d ay 05/28/2021. A right PICC line has been repositioned. The tip now projects over the SVC. The cardiome diastinal silhouette is unremarkable noting atherosclerotic calcification of the thoracic aorta. [employer] yobany interstitial thickening is similar to previous. No airspace consolidation or large pleural effusi on is identified. Calcified granulomas are noted in the left lower lung. No pneumothorax is seen. The skeletal structures are osteopenic. The bony thorax is grossly intact. IMPRESSION: 1. The tip of the PICC line now projects over the SVC. 2. There is no airspace consolidation or pleural effusion. ACT 112: Negative or not required by law. Electronically signed by: Edy Jett M.D. 05/28/2021 8:21 PM
[2021-05-29] MEDS: INSULIN ASPART PER UNIT SC SCH ×4 (09:30→21:00)
[2021-05-29] MEDS: INSULIN GLARGINE SOLOSTAR 100 UNITS/ML 3 ML PEN SC SCH (09:37)
[2021-05-29] MEDS: ASCORBIC ACID 500 MG TAB PO SCH (09:38)
[2021-05-29] MEDS: PYRIDOXINE HCL 50 MG TAB PO SCH ×2 (09:38→22:17)
[2021-05-29] MEDS: CYANOCOBALAMIN (VITAMIN B-12) 2,500 MCG TAB.SUBL SL SCH (09:39)
[2021-05-29] MEDS: CEROVITE ADV FORMULA TAB PO SCH (09:39)
[2021-05-29] MEDS: ZINC SULFATE 220 MG CAPSULE PO SCH (09:39)
[2021-05-29] MEDS: DOCUSATE SODIUM/SENNA 50/8.6MG TAB PO SCH (09:40)
[2021-05-29] MEDS: MECLIZINE 12.5 MG TAB PO PRN (09:40)
[2021-05-29] MEDS: THIAMINE HCL 100 MG TAB PO SCH ×2 (09:40→22:17)
[2021-05-29] MEDS: metroNIDAZOLE 500 MG TAB PO SCH ×3 (09:41→22:17)
[2021-05-29] MEDS: CHOLECALCIFEROL 1,000 UNITS 25 MCG TAB PO SCH ×2 (09:41→22:15)
[2021-05-29] MEDS: ENOXAPARIN INJ 30 MG/0.3 ML SYR SQ SCH (09:41)
[2021-05-29] MEDS: POLYETHYLENE (MIRALAX) 17 GM PACK PO SCH (09:42)
[2021-05-29] MEDS: CARBIDOPA/LEVODOPA 25/100MG TAB PO SCH ×4 (09:42→22:15)
[2021-05-29] MEDS: DICLOFENAC SOD 1% GEL 100 GM TUBE EXT SCH ×3 (09:47→22:15)
[2021-05-29] MEDS ORDERED: ACETAMINOPHEN SUSP 325 MG/10.15 ML UDC PO PRN (17:37)
--- NOTE | 2021-05-29 18:08 | Hospitalist Progress Note ---
Date of Service May 29, 2021 Assessment & Plan (1) Sacral decubitus ulcer, stage IV: Plan: Surgery was consulted on 05/22 at the request of Wound Care as her sacral ulcer was not responding to conservative care. - Debrided by Dr. Simon on 05/22/2021 - Wound culture sent at that time. Of note, she has exposed bone from the debridement, so she de facto has osteomyelitis. - Wound culture showing Bacteroides and anaerobic gram-positive bacilli - Consulted ID -> Plan for 6 weeks of abx therapy. - Plan for wound as guided by general surgery. 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 - trialed Risperdal 0.25mg - has helped, and has tolerated the med and discussed with daughter - increased to 0.5 mg and monitor for any symptoms/drowsiness (refused the previous 2 nights before switching to oral solution per discussion with daughter 05/19 and since she has received) MRI brain without acute or subacute CVA; no ICH, tumor, etc. recent b12/tsh wnl Daughter she states that several months ago the patient was a/o x 3 and living independently . Memory issues 05/15 and repeat UA given recent reyes --> coag neg staph, not saprophytic, sensitive to nitrofurantoin. Continue empiric thiamine 200mg BID x 1 month - remains stable at this time and answering questions appropriately - Presently doing well on risperidone 0.5 mg PO HS. Daughter asked about mirtazapine, but I'm not sure she really needs it. She is sleeping well with the risperidone and is awake and pleasant and doesn't seem depressed. conservative measures recommended rather than adding extra medication. (3) Pneumonia due to COVID-19 virus: Plan: clinically resolved - NC O2 weaned off 05/03/21 and stable in RA since - s/p 10 day course of dexamethasone - no symptoms at this time 94% on RA Received J&J COVID vaccine for 05/19, and hopefully will assist with placement. (4) Dizziness: Plan: Admitted when found down at home, + COVID as above and completed treatment Question of syncope at home, and + murmur on examination without ECHO having been performed as ordered on admission No focal deficit concerning for CVA, sounds more like orthostatic hypotension vs BPPV --> given 500cc NSS and no further dizziness reported Unfortunately had fall as bed alarm not turned on evening 05/20--> CT head negative as above ECHO without significant valvular dysfunction --> done as reported down prior to admission and felt syncopal Meclizine available prn Continue to monitor (5) Parkinsons disease: Plan: Continue with Carbidopa-Levadopa per home dosing --does she have underlying dementia from PD?? MRI brain neg for acute findings -risperdal low dose 0.5mg HS - has helped delirium - continue this (6) UTI (urinary tract infection): Plan: -E coli during admission-course of Levaquin completed (7) Dysphagia: Plan: -pureed diet -no issues per staff or patient and tolerating well (8) Hypernatremia: Plan: resolved (9) Hypokalemia: Plan: -resolved (10) Diabetes: Plan: No hemoglobin A1c in the chart for 2 years Blood sugars here have been on the lower side for someone of her age and comorbidities Continue Lantus 8 units once daily For NovoLog, change scale to 100-140, increase correction factor to 35, and loosen carbohydrate ratio to 15 (11) Rhabdomyolysis: Plan: -RESOLVED -found on floor at her home -- likely cause of rhabdo -COVID can also cause rhabdo (12) Pressure injury of back, stage 2: Plan: Present on admission secondary to patient being found down at home Optifoams, frequent turning, etc. --> is S/P drbridement and wound vac in place wound care narda avilez's added once daily - will need outpatient F/U ([phone]) cont MVI/vit C/zinc/thiamine waffle cushion for comfort, pain control ordered --> reports improvement in discomfort and no need for medication outside of occasional tylenol (13) Chronic kidney disease, stage 3a: Plan: baseline CrCl 50s stable (14) Urinary retention: Plan: 2nd to UTI? resolved with treatment s/p reyes reinsertion 05/04/21 - kept to try and prevent urine exposure to wound but since removed, has been voiding since Tx of UTI as above Plan: will need rehab post-d/c cont PT/OT while inpatient case management helping with post-d/c disposition --> patient received J&J booster 05/19 (as agreed upon by patient and daughter), should help with placement however could be up to 2 weeks before they are willing to accept. Daughter justin (oldest sibling, no POA) about patient to rehab closer to [place] where nursing ratio to patients lower, however discussed if able to find placement closer sooner will need to consider given lack of beds across the [facility]. Son also provided additional facilities 05/20 which were relayed to CM and referrals sent Daughter Aline would like daily updates --attempted to call but no answer Admission and Anticipated Discharge Date Admission Date: April 18, 2021 Supervising Physician Co-Signing Physician Notes PA Supervision Note: I did not personally see or examine the patient today, but I verified all bahena points of RAVI Salcedo's assessment and plan with the following exceptions/additions: none Subjective Patient seen on daily rounds today. Vocalizes no significant complaints or concerns. Denies fevers, chills, chest pain, shortness of breath, abdominal pain, nausea or vomiting. PICC line now in place. Wound VAC in place. Nursing voices no complaints or concerns. Review of Systems Review of Systems: Question reliability but Denies fevers, chills, headache, nasal congestion, sore throat, cough, chest pain, shortness of breath, palpitations, orthopnea, PND, abdominal pain, nausea, vomiting, diarrhea, constipation, dysuria, hematuria, frequency, back pain, joint pain or swelling, easy bruising or bleeding, skin lesions or rashes. Physical Exam Physical Exam: General: Resting comfortably in her hospital bed. NAD. HEENT: Head is AT/NC buccal mucosa is moist and pink Neck: No JVD. Negative hepatojugular reflex Cardiac: RRR with 1/6 MADELINE Lungs: CTA without W/R/R Abdomen: Normoactive X4. Soft and nontender in all quadrants. Extremities: PICC line to right upper extremity. No peripheral edema of the lower extremities Neuro: Oriented to person/self, place and somewhat to situation. Cranial nerves II through XII are grossly intact no focal neuro deficits Skin: No obvious skin lesions or rashes Psych: Appropriate affect pleasant and cooperative Results & Data Results & Data ([facility]) Vital Signs (Past 12 Hours) Vital Signs Temp Pulse Resp BP Pulse Ox 05/29/21 16:47 36.7 C 111 H 16 125/73 94 05/29/21 07:21 36.9 C 94 H 16 123/75 93 PG Care Time/CCT Total # of Minutes Spent Total Time Spent with Patient: Total time spent is greater than 50% in coordination of care (as documented) at patient's floor/unit and/or counseling patient: Coding Level of Care Code 81355 Subseq Hosp Care Lvl 1 Diagnoses Sacral decubitus ulcer, stage IV L89.154 Metabolic encephalopathy G93.41 Pneumonia due to COVID-19 virus U07.1; J12.82 Dizziness R42 Parkinsons disease G20 UTI (urinary tract infection) N39.0 Dysphagia R13.10 Hypernatremia E87.0 Hypokalemia E87.6 Diabetes E11.9 Rhabdomyolysis M62.82 Pressure injury of back, stage 2 L89.102 Chronic kidney disease, stage 3a N18.31 Urinary retention R33.9
[2021-05-29] MEDS: cefTRIAXone SODIUM 2,000 MG in DEXTROSE 5% 50 ML IV SCH (18:20)
[2021-05-29] MEDS: risperiDONE 1 MG/ML SOLUTION PO SCH (22:17)
[2021-05-30] MEDS: metroNIDAZOLE 500 MG TAB PO SCH ×3 (08:34→21:12)
[2021-05-30] MEDS: THIAMINE HCL 100 MG TAB PO SCH ×2 (08:34→21:12)
[2021-05-30] MEDS: CEROVITE ADV FORMULA TAB PO SCH (08:34)
[2021-05-30] MEDS: CHOLECALCIFEROL 1,000 UNITS 25 MCG TAB PO SCH ×2 (08:34→21:12)
[2021-05-30] MEDS: CARBIDOPA/LEVODOPA 25/100MG TAB PO SCH ×4 (08:34→21:12)
[2021-05-30] MEDS: PYRIDOXINE HCL 50 MG TAB PO SCH ×2 (08:34→21:13)
[2021-05-30] MEDS: ZINC SULFATE 220 MG CAPSULE PO SCH (08:34)
[2021-05-30] MEDS: ASCORBIC ACID 500 MG TAB PO SCH (08:34)
[2021-05-30] MEDS: CYANOCOBALAMIN (VITAMIN B-12) 2,500 MCG TAB.SUBL SL SCH (08:34)
[2021-05-30] MEDS: POLYETHYLENE (MIRALAX) 17 GM PACK PO SCH (08:35)
[2021-05-30] MEDS: DOCUSATE SODIUM/SENNA 50/8.6MG TAB PO SCH (08:35)
[2021-05-30] MEDS: ENOXAPARIN INJ 30 MG/0.3 ML SYR SQ SCH (08:40)
[2021-05-30] MEDS: DICLOFENAC SOD 1% GEL 100 GM TUBE EXT SCH ×3 (08:41→21:15)
[2021-05-30] MEDS: INSULIN GLARGINE SOLOSTAR 100 UNITS/ML 3 ML PEN SC SCH (08:42)
[2021-05-30] MEDS: INSULIN ASPART PER UNIT SC SCH ×4 (08:44→21:22)
[2021-05-30 12:31] LABS: Estimated Average Glucose 140 mg/dl; Hemoglobin A1C 6.5 % (4.5-5.6)
[2021-05-30] MEDS: cefTRIAXone SODIUM 2,000 MG in DEXTROSE 5% 50 ML IV SCH (17:43)
--- NOTE | 2021-05-30 17:43 | Hospitalist Progress Note ---
Date of Service May 30, 2021 Assessment & Plan (1) Sacral decubitus ulcer, stage IV: Plan: Surgery was consulted on 05/22 at the request of Wound Care as her sacral ulcer was not responding to conservative care. - Debrided by Dr. Simon on 05/22/2021 - Wound culture sent at that time. Of note, she has exposed bone from the debridement, so she de facto has osteomyelitis. - Wound culture showing Bacteroides and anaerobic gram-positive bacilli - Consulted ID -> Plan for 6 weeks of abx therapy. - Plan for wound as guided by general surgery. 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 - trialed Risperdal 0.25mg - has helped, and has tolerated the med and discussed with daughter - increased to 0.5 mg and monitor for any symptoms/drowsiness (refused the previous 2 nights before switching to oral solution per discussion with daughter 05/19 and since she has received) MRI brain without acute or subacute CVA; no ICH, tumor, etc. recent b12/tsh wnl Daughter she states that several months ago the patient was a/o x 3 and living independently . Memory issues 05/15 and repeat UA given recent reyes --> coag neg staph, not saprophytic, sensitive to nitrofurantoin. Continue empiric thiamine 200mg BID x 1 month - remains stable at this time and answering questions appropriately - Presently doing well on risperidone 0.5 mg PO HS. (3) Pneumonia due to COVID-19 virus: Plan: clinically resolved - NC O2 weaned off 05/03/21 and stable in RA since - s/p 10 day course of dexamethasone - no symptoms at this time 94% on RA Received J&J COVID vaccine for 05/19, and hopefully will assist with placement. (4) Dizziness: Plan: Admitted when found down at home, + COVID as above and completed treatment Question of syncope at home, and + murmur on examination without ECHO having been performed as ordered on admission No focal deficit concerning for CVA, sounds more like orthostatic hypotension vs BPPV --> given 500cc NSS and no further dizziness reported Unfortunately had fall as bed alarm not turned on evening 05/20--> CT head negative as above ECHO without significant valvular dysfunction --> done as reported down prior to admission and felt syncopal Meclizine available prn Continue to monitor (5) Parkinsons disease: Plan: Continue with Carbidopa-Levadopa per home dosing --does she have underlying dementia from PD?? MRI brain neg for acute findings -risperdal low dose 0.5mg HS - has helped delirium - continue this (6) UTI (urinary tract infection): Plan: -E coli during admission-course of Levaquin completed (7) Dysphagia: Plan: -pureed diet -no issues per staff or patient and tolerating well (8) Hypernatremia: Plan: resolved (9) Hypokalemia: Plan: -resolved (10) Diabetes: Plan: A1C 6.5% * Resume Metformin as prior to hospitalization * Hold glyburide for now given sliding scale on board and risk for hypoglycemia with this * Continue sliding scale/correction dosing (11) Rhabdomyolysis: Plan: -RESOLVED -found on floor at her home -- likely cause of rhabdo -COVID can also cause rhabdo (12) Pressure injury of back, stage 2: Plan: Present on admission secondary to patient being found down at home Optifoams, frequent turning, etc. --> is S/P drbridement and wound vac in place wound care saw, narda's added once daily - will need outpatient F/U ([phone]) cont MVI/vit C/zinc/thiamine waffle cushion for comfort, pain control ordered --> reports improvement in discomfort and no need for medication outside of occasional tylenol (13) Chronic kidney disease, stage 3a: Plan: baseline CrCl 50s stable (14) Urinary retention: Plan: 2nd to UTI? resolved with treatment s/p reyes reinsertion 05/04/21 - kept to try and prevent urine exposure to wound but since removed, has been voiding since Tx of UTI as above Plan: will need rehab post-d/c cont PT/OT while inpatient case management helping with post-d/c disposition --> patient received J&J booster 05/19 (as agreed upon by patient and daughter), should help with placement however could be up to 2 weeks before they are willing to accept. Daughter adamant (oldest sibling, no POA) about patient to rehab closer to [place] where nursing ratio to patients lower, however discussed if able to find placement closer sooner will need to consider given [facility]. Son also provided additional facilities 05/20 which were relayed to CM and referrals sent Daughter Aline would like daily updates --attempted to call but no answer Admission and Anticipated Discharge Date Admission Date: April 18, 2021 Supervising Physician Co-Signing Physician Notes chart reviewed, case d/w J Denisse PAC. agree w above Subjective Patient seen on daily rounds today. Vocalizes no complaints or concerns. Nursing voices no issues Review of Systems Review of Systems: All systems reviewed and are unremarkable except as noted in HPI and below Denies fevers, chills, headache, nasal congestion, sore throat, cough, chest pain, shortness of breath, palpitations, orthopnea, PND, abdominal pain, nausea, vomiting, diarrhea, constipation, dysuria, hematuria, frequency, back pain, joint pain or swelling, easy bruising or bleeding, skin lesions or rashes. Physical Exam Physical Exam: General: Resting comfortably in her hospital bed. NAD. HEENT: Head is AT/NC buccal mucosa is moist and pink Neck: No JVD. Negative hepatojugular reflex Cardiac: RRR with 1/6 MADELINE Lungs: CTA without W/R/R Abdomen: Normoactive X4. Soft and nontender in all quadrants. Extremities: PICC line to right upper extremity. No peripheral edema of the lower extremities Neuro: Oriented to person/self, place and somewhat to situation. Cranial nerves II through XII are grossly intact no focal neuro deficits Skin: No obvious skin lesions or rashes Psych: Appropriate affect pleasant and cooperative Results & Data Results & Data ([facility]) Vital Signs (Past 12 Hours) Vital Signs Temp Pulse Resp BP BP Pulse Ox 05/30/21 16:13 37.1 C 104 H 17 113/58 L 93 05/30/21 07:53 36.7 C 119 H 18 117/74 96 PG Care Time/CCT Total # of Minutes Spent Total Time Spent with Patient: Total time spent is greater than 50% in coordination of care (as documented) at patient's floor/unit and/or counseling patient: Coding Level of Care Code 76416 Subseq Hosp Care Lvl 1 Diagnoses Sacral decubitus ulcer, stage IV L89.154 Metabolic encephalopathy G93.41 Pneumonia due to COVID-19 virus U07.1; J12.82 Dizziness R42 Parkinsons disease G20 UTI (urinary tract infection) N39.0 Dysphagia R13.10 Hypernatremia E87.0 Hypokalemia E87.6 Diabetes E11.9 Rhabdomyolysis M62.82 Pressure injury of back, stage 2 L89.102 Chronic kidney disease, stage 3a N18.31 Urinary retention R33.9
[2021-05-30] MEDS: risperiDONE 1 MG/ML SOLUTION PO SCH (21:13)
[2021-05-31] MEDS: INSULIN ASPART PER UNIT SC SCH ×3 (08:45→18:09)
[2021-05-31] MEDS: INSULIN GLARGINE SOLOSTAR 100 UNITS/ML 3 ML PEN SC SCH (08:47)
[2021-05-31] MEDS: CARBIDOPA/LEVODOPA 25/100MG TAB PO SCH ×4 (08:57→22:31)
[2021-05-31] MEDS: PYRIDOXINE HCL 50 MG TAB PO SCH ×2 (08:57→22:31)
[2021-05-31] MEDS: metroNIDAZOLE 500 MG TAB PO SCH ×3 (08:57→22:31)
[2021-05-31] MEDS: THIAMINE HCL 100 MG TAB PO SCH ×2 (08:58→22:31)
[2021-05-31] MEDS: CYANOCOBALAMIN (VITAMIN B-12) 2,500 MCG TAB.SUBL SL SCH (08:58)
[2021-05-31] MEDS: ASCORBIC ACID 500 MG TAB PO SCH (08:58)
[2021-05-31] MEDS: CHOLECALCIFEROL 1,000 UNITS 25 MCG TAB PO SCH ×2 (08:59→22:30)
[2021-05-31] MEDS: CEROVITE ADV FORMULA TAB PO SCH (08:59)
[2021-05-31] MEDS: ZINC SULFATE 220 MG CAPSULE PO SCH (08:59)
[2021-05-31] MEDS: ENOXAPARIN INJ 30 MG/0.3 ML SYR SQ SCH (09:00)
[2021-05-31] MEDS: POLYETHYLENE (MIRALAX) 17 GM PACK PO SCH (09:01)
[2021-05-31] MEDS: DICLOFENAC SOD 1% GEL 100 GM TUBE EXT SCH ×3 (09:01→22:31)
[2021-05-31] MEDS: DOCUSATE SODIUM/SENNA 50/8.6MG TAB PO SCH (09:01)
[2021-05-31] MEDS: metFORMIN HCL 500 MG TAB PO SCH ×2 (09:23→18:11)
--- NOTE | 2021-05-31 13:53 | Hospitalist Progress Note ---
Date of Service May 31, 2021 Assessment & Plan (1) Sacral decubitus ulcer, stage IV: Plan: Surgery was consulted on 05/22 at the request of Wound Care as her sacral ulcer was not responding to conservative care. - Debrided by Dr. Simon on 05/22/2021 - Wound culture sent at that time. Of note, she has exposed bone from the debridement, so she de facto has osteomyelitis. - Wound culture showing Bacteroides and anaerobic gram-positive bacilli - Consulted ID -> Plan for 6 weeks of abx therapy. - continue wound care as guided by general surgery.--> wound vac in place - Will plan for 6 weeks of Rocephin/Flagyl (07/09/21) - PICC line placed (2) Metabolic encephalopathy: Plan: suspect due to COVID encephalopathy, hospital psychosis, UTI, etc. - trialed Risperdal 0.25mg - has helped, and has tolerated the med and discussed with daughter - increased to 0.5 mg and monitor for any symptoms/drowsiness (refused the previous 2 nights before switching to oral solution per discussion with daughter 05/19 and since she has received) MRI brain without acute or subacute CVA; no ICH, tumor, etc. recent b12/tsh wnl Daughter she states that several months ago the patient was a/o x 3 and living independently . Memory issues 05/15 and repeat UA given recent reyes --> coag neg staph, not saprophytic, sensitive to nitrofurantoin. Continue empiric thiamine 200mg BID x 1 month - remains stable at this time and answering questions appropriately - Presently doing well on risperidone 0.5 mg PO HS. (3) Pneumonia due to COVID-19 virus: Plan: clinically resolved - NC O2 weaned off 05/03/21 and stable in RA since - s/p 10 day course of dexamethasone - no symptoms at this time 94% on RA Received J&J COVID vaccine for 05/19, and hopefully will assist with placement. (4) Dizziness: Plan: Admitted when found down at home, + COVID as above and completed treatment Question of syncope at home, and + murmur on examination without ECHO having been performed as ordered on admission No focal deficit concerning for CVA, sounds more like orthostatic hypotension vs BPPV --> given 500cc NSS and no further dizziness reported Unfortunately had fall as bed alarm not turned on evening 05/20--> CT head negative as above ECHO without significant valvular dysfunction --> done as reported down prior to admission and felt syncopal Meclizine available prn Continue to monitor (5) Parkinsons disease: Plan: Continue with Carbidopa-Levadopa per home dosing --does she have underlying dementia from PD?? MRI brain neg for acute findings -risperdal low dose 0.5mg HS - has helped delirium - continue this (6) UTI (urinary tract infection): Plan: -E coli during admission-course of Levaquin completed (7) Dysphagia: Plan: -pureed diet -no issues per staff or patient and tolerating well (8) Hypernatremia: Plan: resolved (9) Hypokalemia: Plan: -resolved (10) Diabetes: Plan: A1C 6.5% * Resumed Metformin as prior to hospitalization * Hold glyburide for now given sliding scale on board and risk for hypoglycemia with this * Continue sliding scale/correction dosing (11) Rhabdomyolysis: Plan: -RESOLVED -found on floor at her home -- likely cause of rhabdo -COVID can also cause rhabdo (12) Pressure injury of back, stage 2: Plan: Present on admission secondary to patient being found down at home Optifoams, frequent turning, etc. --> is S/P drbridement and wound vac in place. wound recommendations in place for discharge wound care narda avilez'phuc added once daily - will need outpatient F/U ([phone]) cont MVI/vit C/zinc/thiamine waffle cushion for comfort, pain control ordered --> reports improvement in discomfort and no need for medication outside of occasional tylenol (13) Chronic kidney disease, stage 3a: Plan: baseline CrCl 50s stable (14) Urinary retention: Plan: 2nd to UTI? resolved with treatment s/p reyes reinsertion 05/04/21 - kept to try and prevent urine exposure to wound but since removed, has been voiding since Tx of UTI as above Plan: will need rehab post-d/c cont PT/OT while inpatient case management helping with post-d/c disposition --> patient received J&J booster 05/19 (as agreed upon by patient and daughter), should help with placement however could be up to 2 weeks before they are willing to accept. Daughter adamant (oldest sibling, no POA) about patient to rehab closer to [place] where nursing ratio to patients lower, however discussed if able to find placement closer sooner will need to consider given lack of beds across the [facility]. Son also provided additional facilities 05/20 which were relayed to CM and referrals sent Daughter Aline would like daily updates --attempted to call but no answer Admission and Anticipated Discharge Date Admission Date: April 18, 2021 Supervising Physician Co-Signing Physician Notes chart reviewed, case d/w J Denisse PAC. agree w above Subjective Nothing new to report. Moving bowel bladder without difficulty. Vocalizes no pain. Nursing voices no concerns. Review of Systems Review of Systems: All systems reviewed and are unremarkable except as noted in HPI and below Denies fevers, chills, headache, nasal congestion, sore throat, cough, chest pain, shortness of breath, palpitations, orthopnea, PND, abdominal pain, nausea, vomiting, diarrhea, constipation, dysuria, hematuria, frequency, back pain, joint pain or swelling, easy bruising or bleeding, skin lesions or rashes. Physical Exam Physical Exam: General: Resting comfortably in her bedside chair. NAD. HEENT: Head is AT/NC buccal mucosa is moist and pink Neck: No JVD. Negative hepatojugular reflex Cardiac: RRR with 1/6 MADELINE Lungs: CTA without W/R/R Abdomen: Normoactive X4. Soft and nontender in all quadrants. Extremities: PICC line to right upper extremity. No peripheral edema of the lower extremities Neuro: Oriented to person/self, place and somewhat to situation. Cranial nerves II through XII are grossly intact no focal neuro deficits Skin: No obvious skin lesions or rashes Psych: Appropriate affect pleasant and cooperative Results & Data Results & Data ([facility]) Vital Signs (Past 12 Hours) Vital Signs Temp Pulse Resp BP Pulse Ox 05/31/21 08:08 37.0 C 89 17 134/79 94 Laboratory Results No lab data PG Care Time/CCT Total # of Minutes Spent Total Time Spent with Patient: Total time spent is greater than 50% in coordination of care (as documented) at patient's floor/unit and/or counseling patient: Coding Level of Care Code 23491 Subseq Hosp Care Lvl 1 Diagnoses Sacral decubitus ulcer, stage IV L89.154 Metabolic encephalopathy G93.41 Pneumonia due to COVID-19 virus U07.1; J12.82 Dizziness R42 Parkinsons disease G20 UTI (urinary tract infection) N39.0 Dysphagia R13.10 Hypernatremia E87.0 Hypokalemia E87.6 Diabetes E11.9 Rhabdomyolysis M62.82 Pressure injury of back, stage 2 L89.102 Chronic kidney disease, stage 3a N18.31 Urinary retention R33.9
[2021-05-31] MEDS: cefTRIAXone SODIUM 2,000 MG in DEXTROSE 5% 50 ML IV SCH (18:15)
[2021-05-31] MEDS: risperiDONE 1 MG/ML SOLUTION PO SCH (22:31)
[2021-06-01] MEDS: INSULIN ASPART PER UNIT SC SCH ×5 (04:38→20:33)
[2021-06-01] MEDS: metFORMIN HCL 500 MG TAB PO SCH ×2 (08:59→17:11)
[2021-06-01] MEDS: ZINC SULFATE 220 MG CAPSULE PO SCH (09:00)
[2021-06-01] MEDS: CARBIDOPA/LEVODOPA 25/100MG TAB PO SCH ×4 (09:00→20:26)
[2021-06-01] MEDS: ASCORBIC ACID 500 MG TAB PO SCH (09:00)
[2021-06-01] MEDS: THIAMINE HCL 100 MG TAB PO SCH ×2 (09:00→20:25)
[2021-06-01] MEDS: metroNIDAZOLE 500 MG TAB PO SCH ×3 (09:01→20:25)
[2021-06-01] MEDS: CEROVITE ADV FORMULA TAB PO SCH (09:01)
[2021-06-01] MEDS: CYANOCOBALAMIN (VITAMIN B-12) 2,500 MCG TAB.SUBL SL SCH (09:01)
[2021-06-01] MEDS: DOCUSATE SODIUM/SENNA 50/8.6MG TAB PO SCH (09:01)
[2021-06-01] MEDS: CHOLECALCIFEROL 1,000 UNITS 25 MCG TAB PO SCH (09:01)
[2021-06-01] MEDS: PYRIDOXINE HCL 50 MG TAB PO SCH (09:02)
[2021-06-01] MEDS: POLYETHYLENE (MIRALAX) 17 GM PACK PO SCH (09:02)
[2021-06-01] MEDS: DICLOFENAC SOD 1% GEL 100 GM TUBE EXT SCH ×3 (09:03→20:26)
[2021-06-01] MEDS: ENOXAPARIN INJ 30 MG/0.3 ML SYR SQ SCH (09:03)
[2021-06-01] MEDS: INSULIN GLARGINE SOLOSTAR 100 UNITS/ML 3 ML PEN SC SCH (09:04)
--- NOTE | 2021-06-01 15:15 | Hospitalist Progress Note ---
Date of Service June 01, 2021 Assessment & Plan (1) Sacral decubitus ulcer, stage IV: Plan: Surgery was consulted on 05/22 at the request of Wound Care as her sacral ulcer was not responding to conservative care. - Debrided by Dr. Simon on 05/22/2021 - Wound culture sent at that time. Of note, she has exposed bone from the debridement, so she de facto has osteomyelitis. - Wound culture showing Bacteroides and anaerobic gram-positive bacilli - Consulted ID -> Plan for 6 weeks of abx therapy. - continue wound care as guided by general surgery.--> wound vac in place - Will plan for 6 weeks of Rocephin/Flagyl (07/09/21) - PICC line placed (2) Metabolic encephalopathy: Plan: suspect due to COVID encephalopathy, hospital psychosis, UTI, etc. - significantly improved and likely near baseline MRI brain without acute or subacute CVA; no ICH, tumor, etc. recent b12/tsh wnl Daughter she states that several months ago the patient was a/o x 3 and living independently . Continue empiric thiamine 200mg BID x 1 month - remains stable at this time and answering questions appropriately - Presently doing well on risperidone 0.5 mg PO HS (started by prior attending and doing well on this) (3) Pneumonia due to COVID-19 virus: Plan: clinically resolved - NC O2 weaned off 05/03/21 and stable in RA since - s/p 10 day course of dexamethasone - no symptoms at this time 94% on RA Received J&J COVID vaccine for 05/19 as needed for placement (4) Dizziness: Plan: Admitted when found down at home, + COVID as above and completed treatment Question of syncope at home, and + murmur on examination without ECHO having been performed as ordered on admission No focal deficit concerning for CVA, sounds more like orthostatic hypotension vs BPPV --> given 500cc NSS and no further dizziness reported. Orthostasis common in patient's with parkinsons Unfortunately had fall as bed alarm not turned on evening 05/20--> CT head negative as above ECHO without significant valvular dysfunction --> done as reported down prior to admission and felt syncopal Meclizine available prn Continue to monitor (5) Parkinsons disease: Plan: Continue with Carbidopa-Levadopa per home dosing --does she have underlying dementia from PD?? MRI brain neg for acute findings -risperdal low dose 0.5mg HS - has helped delirium - continue this (6) UTI (urinary tract infection): Plan: -E coli during admission-course of Levaquin completed (7) Dysphagia: Plan: -pureed diet -no issues per staff or patient and tolerating well (8) Hypernatremia: Plan: resolved (9) Hypokalemia: Plan: -resolved/replaced (10) Diabetes: Plan: A1C 6.5% * Resumed Metformin and glyburide as prior to hospitalization * Continue sliding scale/correction dosing (11) Rhabdomyolysis: Plan: -RESOLVED -found on floor at her home -- likely cause of rhabdo -COVID can also cause rhabdo (12) Pressure injury of back, stage 2: Plan: Present on admission secondary to patient being found down at home Optifoams, frequent turning, etc. --> is S/P drbridement and wound vac in place. wound recommendations in place for discharge wound care saw, santyl's added once daily - will need outpatient F/U ([phone]) cont MVI/vit C/zinc/thiamine waffle cushion for comfort, pain control ordered --> reports improvement in discomfort and no need for medication outside of occasional tylenol (13) Chronic kidney disease, stage 3a: Plan: baseline CrCl 50s stable (14) Urinary retention: Plan: 2nd to UTI? resolved with treatment s/p reyes reinsertion 05/04/21 - kept to try and prevent urine exposure to wound but since removed, has been voiding since Tx of UTI as above (15) Antibiotic-associated diarrhea: Plan: -Frequent loose stools which is likely related to antibiotic associated diarrhea -Add probiotic and yogurt with live cultures -Not highly suspicious for C. difficile at this time in the setting of antibiotics (especially on Flagyl) Plan: Will need SNF for inpatient PT/OT, wound care and IV abx therapy is medically hemodynamically stable for discharge. Case management on board. Multiple referrals made Admission and Anticipated Discharge Date Admission Date: April 18, 2021 Supervising Physician Co-Signing Physician Notes chart reviewed, case d/w J Denisse PAC. agree w above Subjective Patient seen on daily rounds today. Complaining of frequent loose stools but otherwise denies fevers, chills, chest pain, shortness of breath, abdominal pain, nausea or vomiting. Nursing voices no complaints or concerns. Review of Systems Review of Systems: All systems reviewed and are unremarkable except as noted in HPI and below Denies fevers, chills, headache, nasal congestion, sore throat, cough, chest pain, shortness of breath, palpitations, orthopnea, PND, abdominal pain, nausea, vomiting, constipation, dysuria, hematuria, frequency, back pain, joint pain or swelling, easy bruising or bleeding, skin lesions or rashes. Physical Exam Physical Exam: General: Resting comfortably in her bedside chair. NAD. HEENT: Head is AT/NC buccal mucosa is moist and pink Neck: No JVD. Negative hepatojugular reflex Cardiac: RRR with 1/6 MADELINE Lungs: CTA without W/R/R Abdomen: Normoactive X4. Soft and nontender in all quadrants. Extremities: PICC line to right upper extremity. No peripheral edema of the lower extremities Neuro: Oriented to person/self, place and somewhat to situation. Cranial nerves II through XII are grossly intact no focal neuro deficits Skin: No obvious skin lesions or rashes-- wound vac in place to sacral wound Psych: Appropriate affect pleasant and cooperative Results & Data Results & Data ([facility]) Vital Signs (Past 12 Hours) Vital Signs Temp Pulse Resp BP Pulse Ox 06/01/21 14:46 37.1 C 86 16 110/75 95 06/01/21 07:49 36.9 C 90 17 124/76 96 Laboratory Results no lab data today PG Care Time/CCT Total # of Minutes Spent Total Time Spent with Patient: Total time spent is greater than 50% in coordination of care (as documented) at patient's floor/unit and/or counseling patient: Coding Level of Care Code 45978 Subseq Hosp Care Lvl 2 Diagnoses Sacral decubitus ulcer, stage IV L89.154 Metabolic encephalopathy G93.41 Pneumonia due to COVID-19 virus U07.1; J12.82 Dizziness R42 Parkinsons disease G20 UTI (urinary tract infection) N39.0 Dysphagia R13.10 Hypernatremia E87.0 Hypokalemia E87.6 Diabetes E11.9 Rhabdomyolysis M62.82 Pressure injury of back, stage 2 L89.102 Chronic kidney disease, stage 3a N18.31 Urinary retention R33.9 Antibiotic-associated diarrhea K52.1; T36.95XA
[2021-06-01] MEDS: glyBURIDE 5 MG TAB PO SCH (17:11)
[2021-06-01] MEDS: ADVANCED PROBIOTIC 1250 MG CAPSULE PO SCH (17:11)
[2021-06-01] MEDS: cefTRIAXone SODIUM 2,000 MG in DEXTROSE 5% 50 ML IV SCH (17:39)
[2021-06-01] MEDS: risperiDONE 1 MG/ML SOLUTION PO SCH (20:25)
[2021-06-02] MEDS: CARBIDOPA/LEVODOPA 25/100MG TAB PO SCH ×4 (08:52→20:53)
[2021-06-02] MEDS: ZINC SULFATE 220 MG CAPSULE PO SCH (08:53)
[2021-06-02] MEDS: POLYETHYLENE (MIRALAX) 17 GM PACK PO SCH (08:53)
[2021-06-02] MEDS: ADVANCED PROBIOTIC 1250 MG CAPSULE PO SCH (08:54)
[2021-06-02] MEDS: DICLOFENAC SOD 1% GEL 100 GM TUBE EXT SCH ×3 (08:54→20:54)
[2021-06-02] MEDS: ASCORBIC ACID 500 MG TAB PO SCH (08:54)
[2021-06-02] MEDS: DOCUSATE SODIUM/SENNA 50/8.6MG TAB PO SCH (08:54)
[2021-06-02] MEDS: glyBURIDE 5 MG TAB PO SCH ×2 (08:55→17:26)
[2021-06-02] MEDS: metroNIDAZOLE 500 MG TAB PO SCH ×3 (08:55→20:55)
[2021-06-02] MEDS: metFORMIN HCL 500 MG TAB PO SCH ×2 (08:55→17:26)
[2021-06-02] MEDS: ENOXAPARIN INJ 30 MG/0.3 ML SYR SQ SCH (08:56)
[2021-06-02] MEDS: THIAMINE HCL 100 MG TAB PO SCH ×2 (08:56→20:55)
[2021-06-02] MEDS: CEROVITE ADV FORMULA TAB PO SCH (08:57)
[2021-06-02] MEDS: INSULIN ASPART PER UNIT SC SCH ×4 (09:06→20:54)
[2021-06-02] MEDS: INSULIN GLARGINE SOLOSTAR 100 UNITS/ML 3 ML PEN SC SCH (09:07)
--- NOTE | 2021-06-02 09:07 | Hospitalist Progress Note ---
Date of Service June 02, 2021 Assessment & Plan (1) Sacral decubitus ulcer, stage IV: Plan: Surgery was consulted on 05/22 at the request of Wound Care as her sacral ulcer was not responding to conservative care. - Debrided by Dr. Simon on 05/22/2021 - Wound culture sent at that time. Of note, she has exposed bone from the debridement, so she de facto has osteomyelitis. - Wound culture showing Bacteroides and anaerobic gram-positive bacilli - Consulted ID -> Plan for 6 weeks of abx therapy. - continue wound care as guided by general surgery.--> wound vac in place - Will plan for 6 weeks of Rocephin/Flagyl (07/09/21) - PICC line placed (2) Metabolic encephalopathy: Plan: suspect due to COVID encephalopathy, hospital psychosis, UTI, etc. - significantly improved and likely near baseline -MRI brain without acute or subacute CVA; no ICH, tumor, etc. recent b12/tsh wnl -Daughter she states that several months ago the patient was a/o x 3 and living independently . -Continue empiric thiamine 200mg BID x 1 month - remains stable at this time and answering questions appropriately - Continue with risperidone 0.5 mg PO HS (started by prior attending and doing well on this) Continue with current management and monitoring. (3) Pneumonia due to COVID-19 virus: Plan: -clinically resolved - NC O2 weaned off 05/03/21 and pt is stable on RA since. - s/p 10 day course of dexamethasone - no symptoms at this time -today 97% on RA *Received J&J COVID vaccine 05/19/21 as needed for placement. (4) Dizziness: Plan: Admitted when found down at home, + COVID as above and completed treatment Question of syncope at home, and + murmur on examination without ECHO having been performed as ordered on admission No focal deficit concerning for CVA, sounds more like orthostatic hypotension vs BPPV --> given 500cc NSS and no further dizziness reported(orthostasis common in Parkinson pts). Unfortunately had fall as bed alarm not turned on evening 05/20--> CT head negative as above ECHO without significant valvular dysfunction. Meclizine available prn Continue with current management and monitoring. (5) Parkinsons disease: Plan: Stable. Continue with Carbidopa-Levadopa per home dosing MRI brain neg for acute findings risperdal low dose 0.5mg HS - has helped delirium. Continue with current management and monitoring. (6) UTI (urinary tract infection): Plan: resolved. s/p levaquin. (7) Dysphagia: Plan: pureed diet. pt tolerating it well. Continue with current management and monitoring. (8) Hypernatremia: Plan: resolved. (9) Diabetes: Plan: controlled. Last A1C 6.5. continue with metformin and glyburide. continue with ISS. Continue with current management and monitoring. (10) Rhabdomyolysis: Plan: resolved. pt was found on the floor in her home prior to the admission ==>likely to be the cause. (COVID also may contribute). (11) Pressure injury of back, stage 2: Plan: Present on admission secondary to patient being found down at home Optifoams, frequent turning, etc. --> is S/P drbridement and wound vac in place. wound recommendations in place for discharge wound care following the pt, santyl's added once daily - will need outpatient F/U ([phone]). cont MVI/vit C/zinc/thiamine. waffle cushion for comfort, pain control ordered --> reports improvement in discomfort and no need for medication outside of occasional tylenol (12) Chronic kidney disease, stage 3a: Plan: baseline CrCl 50s stable. Continue with current management and monitoring. obtain BW in 2 weeks. (13) Antibiotic-associated diarrhea: Plan: Frequent loose stools which is likely related to antibiotic associated diarrhea Add probiotic and yogurt with live cultures Not highly suspicious for C. difficile at this time in the setting of an tibiotics (especially on Flagyl). no complaints today. Continue with current management and monitoring. (14) Need for case management follow-up: Plan: Pt will need SNF for inpatient PT/OT, wound care and IV abx therapy. She is medically/hemodynamically stable for dischare. Case management is on board. Admission and Anticipated Discharge Date Admission Date: April 18, 2021 Subjective Pt is new to me (rounding for the hospital this week). She is sitting in a chair, alert and awake, watching TV, and waiting for breakfast. States that her family members don't live very close so they do not come to visit her very often. She says she is feeling well today and offers no complaints. Review of Systems Review of Systems: All systems reviewed and are unremarkable except as noted in HPI and below Denies fevers, chills, headache, nasal congestion, sore throat, cough, chest pain, shortness of breath, palpitations, orthopnea, PND, abdominal pain, nausea, vomiting, constipation, dysuria, hematuria, frequency, back pain, joint pain or swelling, easy bruising or bleeding, skin lesions or rashes. Physical Exam Physical Exam: General: Resting comfortably in her bed. NAD. HEENT: sclera/conjunctiva WNL/non icteric. PERRLA EOMI. moist membranes. Neck: supple, no lymphadenopathy. No JVD. Cardiac: RRR with 1/6 MADELINE Lungs: CTA without W/R/R Abdomen: soft, NT/ND, BS WNL. Extremities: PICC line to right upper extremity. No peripheral edema of the lower extremities Neuro: Oriented to person/self, place and somewhat to situation. Cranial nerves II through XII are grossly intact no focal neuro deficits Skin: No obvious skin lesions or rashes-- wound vac in place to sacral wound Psych: Appropriate affect pleasant and cooperative Results & Data Results & Data ([facility]) Vital Signs (Past 12 Hours) Vital Signs Temp Pulse Resp BP Pulse Ox 06/02/21 07:45 37.1 C 103 H 18 115/75 97 PG Care Time/CCT Total # of Minutes Spent Total Time Spent with Patient: Total time spent is greater than 50% in coordination of care (as documented) at patient's floor/unit and/or counseling patient: Coding Level of Care Code 69594 Subseq Hosp Care Lvl 3 Diagnoses Sacral decubitus ulcer, stage IV L89.154 Metabolic encephalopathy G93.41 Pneumonia due to COVID-19 virus U07.1; J12.82 Dizziness R42 Parkinsons disease G20 UTI (urinary tract infection) N39.0 Dysphagia R13.10 Hypernatremia E87.0 Diabetes E11.9 Rhabdomyolysis M62.82 Rhabdomyolysis type: non-traumatic Pressure injury of back, stage 2 L89.102 Chronic kidney disease, stage 3a N18.31 Antibiotic-associated diarrhea K52.1; T36.95XA Need for case management follow-up Z09 (1) Rhabdomyolysis Rhabdomyolysis type: non-traumatic Qualified Code(s): M62.82 - Rhabdomyolysis
[2021-06-02] MEDS: cefTRIAXone SODIUM 2,000 MG in DEXTROSE 5% 50 ML IV SCH (17:29)
[2021-06-02] MEDS: risperiDONE 1 MG/ML SOLUTION PO SCH (20:55)
--- NOTE | 2021-06-03 07:41 | Hospitalist Progress Note ---
Date of Service June 03, 2021 Assessment & Plan (1) Sacral decubitus ulcer, stage IV: Plan: Surgery was consulted on 05/22 at the request of Wound Care as her sacral ulcer was not responding to conservative care. - Debrided by Dr. Simon on 05/22/2021 - Wound culture sent at that time. Of note, she has exposed bone from the debridement, so she de facto has osteomyelitis. - Wound culture showing Bacteroides and anaerobic gram-positive bacilli - Consulted ID -> Plan for 6 weeks of abx therapy. - continue wound care as guided by general surgery.--> wound vac in place - Will plan for 6 weeks of Rocephin/Flagyl (07/09/21) - PICC line placed (2) Metabolic encephalopathy: Plan: suspect due to COVID encephalopathy, hospital psychosis, UTI, etc. - significantly improved and likely near baseline -MRI brain without acute or subacute CVA; no ICH, tumor, etc. recent b12/tsh wnl -Daughter she states that several months ago the patient was a/o x 3 and living independently . -Continue empiric thiamine 200mg BID x 1 month - remains stable at this time and answering questions appropriately - Continue with risperidone 0.5 mg PO HS (started by prior attending and doing well on this) Continue with current management and monitoring. (3) Pneumonia due to COVID-19 virus: Plan: -clinically resolved - NC O2 weaned off 05/03/21 and pt is stable on RA since. - s/p 10 day course of dexamethasone - no symptoms at this time -today 99% on RA *Received J&J COVID vaccine 05/19/21 as needed for placement. (4) Dizziness: Plan: Admitted when found down at home, + COVID as above and completed treatment Question of syncope at home, and + murmur on examination without ECHO having been performed as ordered on admission No focal deficit concerning for CVA, sounds more like orthostatic hypotension vs BPPV --> given 500cc NSS and no further dizziness reported(orthostasis common in Parkinson pts). Unfortunately had fall as bed alarm not turned on evening 05/20--> CT head negative as above ECHO without significant valvular dysfunction. Meclizine available prn Continue with current management and monitoring. (5) Parkinsons disease: Plan: Stable. Continue with Carbidopa-Levadopa per home dosing MRI brain neg for acute findings risperdal low dose 0.5mg HS - has helped delirium. Continue with current management and monitoring. (6) UTI (urinary tract infection): Plan: resolved. s/p levaquin. (7) Dysphagia: Plan: Was on pureed diet, but advanced to soft yesterday. pt tolerating it well. Continue with current management and monitoring. (8) Hypernatremia: Plan: resolved. (9) Diabetes: Plan: controlled. Last A1C 6.5. continue with metformin and glyburide. continue with ISS. Continue with current management and monitoring. (10) Rhabdomyolysis: Plan: resolved. pt was found on the floor in her home prior to the admission ==>likely to be the cause. (COVID also may contribute). (11) Pressure injury of back, stage 2: Plan: Present on admission secondary to patient being found down at home Optifoams, frequent turning, etc. --> is S/P drbridement and wound vac in place. wound recommendations in place for discharge wound care following the pt, santyl's added once daily - will need outpatient F/U ([phone]). cont MVI/vit C/zinc/thiamine. waffle cushion for comfort, pain control ordered --> reports improvement in discomfort and no need for medication outside of occasional tylenol (12) Chronic kidney disease, stage 3a: Plan: baseline CrCl 50s stable. Continue with current management and monitoring. obtain BW in 2 weeks. (13) Antibiotic-associated diarrhea: Plan: Frequent loose stools which is likely related to antibiotic associated diarrhea Add probiotic and yogurt with live cultures Not highly suspicious for C. difficile at this time in the setting of antibiotics (especially on Flagyl). no complaints today. Continue with current management and monitoring. (14) Need for case management follow-up: Plan: Pt will need SNF for inpatient PT/OT, wound care and IV abx therapy. She is medically/hemodynamically stable for discharge. Case management is on board. Admission and Anticipated Discharge Date Admission Date: April 18, 2021 Subjective Pt is new to me (rounding for the hospital this week). She is in bed today, watching TV, and waiting for breakfast. She says she is feeling well today and offers no complaints, aside for having to wake up twice last night to use the restroom. Review of Systems Review of Systems: All systems reviewed and are unremarkable except as noted in HPI and below Denies fevers, chills, headache, nasal congestion, sore throat, cough, chest pain, shortness of breath, palpitations, orthopnea, PND, abdominal pain, nausea, vomiting, constipation, dysuria, hematuria, frequency, back pain, joint pain or swelling, easy bruising or bleeding, skin lesions or rashes. Physical Exam Physical Exam: General: Resting comfortably in her bed. NAD. HEENT: sclera/conjunctiva WNL/non icteric. PERRLA EOMI. moist membranes. Neck: supple, no lymphadenopathy. No JVD. Cardiac: RRR with 1/6 MADELINE Lungs: CTA without W/R/R Abdomen: soft, NT/ND, BS WNL. Extremities: PICC line to right upper extremity. No peripheral edema of the lower extremities Neuro: Oriented to person/self, place and somewhat to situation. Cranial nerves II through XII are grossly intact no focal neuro deficits Skin: No obvious skin lesions or rashes-- wound vac in place to sacral wound Psych: Appropriate affect pleasant and cooperative Results & Data Results & Data ([facility]) Vital Signs (Past 12 Hours) Vital Signs Temp Pulse Resp BP Pulse Ox 06/02/21 21:11 36.5 C 91 H 16 138/81 99 PG Care Time/CCT Total # of Minutes Spent Total Time Spent with Patient: Total time spent is greater than 50% in coordination of care (as documented) at patient's floor/unit and/or counseling patient: Coding Level of Care Code 25424 Subseq Hosp Care Lvl 3 Diagnoses Sacral decubitus ulcer, stage IV L89.154 Metabolic encephalopathy G93.41 Pneumonia due to COVID-19 virus U07.1; J12.82 Dizziness R42 Parkinsons disease G20 UTI (urinary tract infection) N39.0 Dysphagia R13.10 Hypernatremia E87.0 Diabetes E11.9 Rhabdomyolysis M62.82 Rhabdomyolysis type: non-traumatic Pressure injury of back, stage 2 L89.102 Chronic kidney disease, stage 3a N18.31 Antibiotic-associated diarrhea K52.1; T36.95XA Need for case management follow-up Z09 (1) Rhabdomyolysis Rhabdomyolysis type: non-traumatic Qualified Code(s): M62.82 - Rhabdomyolysis
[2021-06-03] MEDS: DICLOFENAC SOD 1% GEL 100 GM TUBE EXT SCH ×3 (08:17→22:03)
[2021-06-03] MEDS: glyBURIDE 5 MG TAB PO SCH ×2 (08:19→17:46)
[2021-06-03] MEDS: metFORMIN HCL 500 MG TAB PO SCH ×2 (08:19→17:46)
[2021-06-03] MEDS: ASCORBIC ACID 500 MG TAB PO SCH (08:19)
[2021-06-03] MEDS: CARBIDOPA/LEVODOPA 25/100MG TAB PO SCH ×4 (08:19→22:00)
[2021-06-03] MEDS: ENOXAPARIN INJ 30 MG/0.3 ML SYR SQ SCH (08:20)
[2021-06-03] MEDS: DOCUSATE SODIUM/SENNA 50/8.6MG TAB PO SCH (08:20)
[2021-06-03] MEDS: CEROVITE ADV FORMULA TAB PO SCH (08:21)
[2021-06-03] MEDS: metroNIDAZOLE 500 MG TAB PO SCH ×3 (08:21→22:02)
[2021-06-03] MEDS: ADVANCED PROBIOTIC 1250 MG CAPSULE PO SCH (08:21)
[2021-06-03] MEDS: THIAMINE HCL 100 MG TAB PO SCH ×2 (08:22→22:04)
[2021-06-03] MEDS: ZINC SULFATE 220 MG CAPSULE PO SCH (08:22)
[2021-06-03] MEDS: POLYETHYLENE (MIRALAX) 17 GM PACK PO SCH (08:22)
[2021-06-03] MEDS: INSULIN GLARGINE SOLOSTAR 100 UNITS/ML 3 ML PEN SC SCH (08:46)
[2021-06-03] MEDS: INSULIN ASPART PER UNIT SC SCH ×4 (08:48→22:13)
[2021-06-03] MEDS: cefTRIAXone SODIUM 2,000 MG in DEXTROSE 5% 50 ML IV SCH (17:53)
[2021-06-03] MEDS: risperiDONE 1 MG/ML SOLUTION PO SCH (22:01)
--- NOTE | 2021-06-04 07:45 | Hospitalist Progress Note ---
Date of Service June 04, 2021 Assessment & Plan (1) Sacral decubitus ulcer, stage IV: Plan: Surgery was consulted on 05/22 at the request of Wound Care as her sacral ulcer was not responding to conservative care. - Debrided by Dr. Simon on 05/22/2021 - Wound culture sent at that time. Of note, she has exposed bone from the debridement, so she de facto has osteomyelitis. - Wound culture showing Bacteroides and anaerobic gram-positive bacilli - Consulted ID -> Plan for 6 weeks of abx therapy. - continue wound care as guided by general surgery.--> wound vac in place - Will plan for 6 weeks of Rocephin/Flagyl (07/09/21) - PICC line in place. 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 - significantly improved and likely near baseline -MRI brain without acute or subacute CVA; no ICH, tumor, etc. recent b12/tsh wnl -Daughter she states that several months ago the patient was a/o x 3 and living independently . -Continue empiric thiamine 200mg BID x 1 month - remains stable at this time and answering questions appropriately - Continue with risperidone 0.5 mg PO HS (started by prior attending and doing well on this) Continue with current management and monitoring. (3) Pneumonia due to COVID-19 virus: Plan: -clinically resolved - NC O2 weaned off 05/03/21 and pt is stable on RA since. - s/p 10 day course of dexamethasone - no symptoms at this time -today 99% on RA *Received J&J COVID vaccine 05/19/21 as needed for placement. (4) Dizziness: Plan: Admitted when found down at home, + COVID as above and completed treatment Question of syncope at home, and + murmur on examination without ECHO having been performed as ordered on admission No focal deficit concerning for CVA, sounds more like orthostatic hypotension vs BPPV --> given 500cc NSS and no further dizziness reported(orthostasis common in Parkinson pts). Unfortunately had fall as bed alarm not turned on evening 05/20--> CT head negative as above ECHO without significant valvular dysfunction. asymptomatic at this time. Meclizine available prn Continue with current management and monitoring. (5) Parkinsons disease: Plan: Stable. Continue with Carbidopa-Levadopa per home dosing MRI brain neg for acute findings risperdal low dose 0.5mg HS - has helped delirium. Continue with current management and monitoring. (6) UTI (urinary tract infection): Plan: resolved. s/p levaquin. (7) Dysphagia: Plan: Was on pureed diet, but advanced to soft yesterday. pt tolerating it well. Continue with current management and monitoring. (8) Hypernatremia: Plan: resolved. (9) Diabetes: Plan: controlled. Last A1C 6.5. continue with metformin and glyburide. continue with ISS. Continue with current management and monitoring. (10) Rhabdomyolysis: Plan: resolved. pt was found on the floor in her home prior to the admission ==>likely to be the cause. (COVID also may contribute). (11) Pressure injury of back, stage 2: Plan: Present on admission secondary to patient being found down at home Optifoams, frequent turning, etc. --> is S/P drbridement and wound vac in place. wound recommendations in place for discharge wound care following the pt, santyl's added once daily - will need outpatient F/U ([phone]). cont MVI/vit C/zinc/thiamine. waffle cushion for comfort, pain control ordered --> reports improvement in discomfort and no need for medication outside of occasional tylenol (12) Chronic kidney disease, stage 3a: Plan: baseline CrCl 50s stable. Continue with current management and monitoring. obtain BW in 2 weeks. (13) Antibiotic-associated diarrhea: Plan: Frequent loose stools which is likely related to antibiotic associated diarrhea Add probiotic and yogurt with live cultures Not highly suspicious for C. difficile at this time in the setting of antibiotics (especially on Flagyl). no complaints today. Continue with current management and monitoring. (14) Need for case management follow-up: Plan: Pt will need SNF for inpatient PT/OT, wound care and IV abx therapy. She is medically/hemodynamically stable for discharge. Case management is on board. They did get a call from [email or web address] on 06/03/21 but unfortunately there are no beds available this week. Admission and Anticipated Discharge Date Admission Date: April 18, 2021 Subjective Pt is in bed today, just waking up. no complaints offered. Review of Systems Review of Systems: All systems reviewed and are unremarkable except as noted in HPI and below Denies fevers, chills, headache, nasal congestion, sore throat, cough, chest pain, shortness of breath, palpitations, orthopnea, PND, abdominal pain, nausea, vomiting, constipation, dysuria, hematuria, frequency, back pain, joint pain or swelling, easy bruising or bleeding, skin lesions or rashes. Physical Exam Physical Exam: General: Resting comfortably in her bed. NAD. HEENT: sclera/conjunctiva WNL/non icteric. PERRLA EOMI. moist membranes. Neck: supple, no lymphadenopathy. No JVD. Cardiac: RRR with 1/6 MADELINE Lungs: CTA without W/R/R Abdomen: soft, NT/ND, BS WNL. Extremities: PICC line to right upper extremity. No peripheral edema of the lower extremities Neuro: Oriented to person/self, place and somewhat to situation. Cranial nerves II through XII are grossly intact no focal neuro deficits Skin: No obvious skin lesions or rashes-- wound vac in place to sacral wound Psych: Appropriate affect pleasant and cooperative Results & Data Results & Data ([facility]) Vital Signs (Past 12 Hours) Vital Signs vitals from this AM reviewed. Temp Pulse Resp BP Pulse Ox 06/03/21 21:50 36.4 C L 98 H 16 136/78 94 PG Care Time/CCT Total # of Minutes Spent Total Time Spent with Patient: Total time spent is greater than 50% in coordination of care (as documented) at patient's floor/unit and/or counseling patient: Coding Level of Care Code 59420 Subseq Hosp Care Lvl 3 Diagnoses Sacral decubitus ulcer, stage IV L89.154 Metabolic encephalopathy G93.41 Pneumonia due to COVID-19 virus U07.1; J12.82 Dizziness R42 Parkinsons disease G20 UTI (urinary tract infection) N39.0 Dysphagia R13.10 Hypernatremia E87.0 Diabetes E11.9 Rhabdomyolysis M62.82 Rhabdomyolysis type: non-traumatic Pressure injury of back, stage 2 L89.102 Chronic kidney disease, stage 3a N18.31 Antibiotic-associated diarrhea K52.1; T36.95XA Need for case management follow-up Z09 (1) Rhabdomyolysis Rhabdomyolysis type: non-traumatic Qualified Code(s): M62.82 - Rhabdomyolysis
[2021-06-04] MEDS: glyBURIDE 5 MG TAB PO SCH ×2 (08:42→17:43)
[2021-06-04] MEDS: THIAMINE HCL 100 MG TAB PO SCH ×2 (08:42→20:47)
[2021-06-04] MEDS: ZINC SULFATE 220 MG CAPSULE PO SCH (08:42)
[2021-06-04] MEDS: DOCUSATE SODIUM/SENNA 50/8.6MG TAB PO SCH (08:42)
[2021-06-04] MEDS: metroNIDAZOLE 500 MG TAB PO SCH ×3 (08:42→20:46)
[2021-06-04] MEDS: CARBIDOPA/LEVODOPA 25/100MG TAB PO SCH ×4 (08:42→20:45)
[2021-06-04] MEDS: ASCORBIC ACID 500 MG TAB PO SCH (08:42)
[2021-06-04] MEDS: CEROVITE ADV FORMULA TAB PO SCH (08:42)
[2021-06-04] MEDS: ADVANCED PROBIOTIC 1250 MG CAPSULE PO SCH (08:42)
[2021-06-04] MEDS: metFORMIN HCL 500 MG TAB PO SCH ×2 (08:43→17:43)
[2021-06-04] MEDS: ENOXAPARIN INJ 30 MG/0.3 ML SYR SQ SCH (08:43)
[2021-06-04] MEDS: DICLOFENAC SOD 1% GEL 100 GM TUBE EXT SCH ×3 (08:43→20:46)
[2021-06-04] MEDS: INSULIN GLARGINE SOLOSTAR 100 UNITS/ML 3 ML PEN SC SCH (08:43)
[2021-06-04] MEDS: POLYETHYLENE (MIRALAX) 17 GM PACK PO SCH (08:44)
[2021-06-04] MEDS: INSULIN ASPART PER UNIT SC SCH ×3 (08:49→17:42)
[2021-06-04] MEDS: CARBOHYDRATES FOR HYPOGLYCEMIA PO PRN (17:15)
[2021-06-04] MEDS: cefTRIAXone SODIUM 2,000 MG in DEXTROSE 5% 50 ML IV SCH (17:47)
[2021-06-04] MEDS: risperiDONE 1 MG/ML SOLUTION PO SCH (20:47)
--- NOTE | 2021-06-05 07:40 | Hospitalist Progress Note ---
Date of Service June 05, 2021 Assessment & Plan (1) Sacral decubitus ulcer, stage IV: Plan: Surgery was consulted on 05/22 at the request of Wound Care as her sacral ulcer was not responding to conservative care. - Debrided by Dr. Simon on 05/22/2021 - Wound culture sent at that time. Of note, she has exposed bone from the debridement, so she de facto has osteomyelitis. - Wound culture showing Bacteroides and anaerobic gram-positive bacilli - Consulted ID -> Plan for 6 weeks of abx therapy. - continue wound care as guided by general surgery.--> wound vac in place - plan for 6 weeks of Rocephin/Flagyl (07/09/21) - PICC line in place. 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 - significantly improved and likely near baseline -MRI brain without acute or subacute CVA; no ICH, tumor, etc. recent b12/tsh wnl -Daughter she states that several months ago the patient was a/o x 3 and living independently . -Continue empiric thiamine 200mg BID x 1 month - remains stable at this time and answering questions appropriately - Continue with risperidone 0.5 mg PO HS (started by prior attending and doing well on this) Continue with current management and monitoring. (3) Pneumonia due to COVID-19 virus: Plan: -clinically resolved - NC O2 weaned off 05/03/21 and pt is stable on RA since. - s/p 10 day course of dexamethasone - no symptoms at this time -today 99% on RA *Received J&J COVID vaccine 05/19/21 as needed for placement. (4) Dizziness: Plan: Admitted when found down at home, + COVID as above and completed treatment Question of syncope at home, and + murmur on examination without ECHO having been performed as ordered on admission No focal deficit concerning for CVA, sounds more like orthostatic hypotension vs BPPV --> given 500cc NSS and no further dizziness reported(orthostasis common in Parkinson pts). Unfortunately had fall as bed alarm not turned on evening 05/20--> CT head negative as above ECHO without significant valvular dysfunction. asymptomatic at this time. Meclizine available prn Continue with current management and monitoring. (5) Parkinsons disease: Plan: Stable. Continue with Carbidopa-Levadopa per home dosing MRI brain neg for acute findings risperdal low dose 0.5mg HS - has helped delirium. Continue with current management and monitoring. (6) UTI (urinary tract infection): Plan: resolved. s/p levaquin. (7) Dysphagia: Plan: Was on pureed diet, but advanced to soft yesterday. pt tolerating it well. Continue with current management and monitoring. (8) Hypernatremia: Plan: resolved. (9) Diabetes: Plan: controlled. Last A1C 6.5. continue with metformin and glyburide. last night we did have an episode of hypoglycemia, (65) and she was given some juice. nurse contacted me and we decided to hold her ISS, and decrease her Lantus from 8 to 4 units. pt is eating well. Continue with current management and monitoring. (10) Rhabdomyolysis: Plan: resolved. pt was found on the floor in her home prior to the admission ==>likely to be the cause. (COVID also may contribute). (11) Pressure injury of back, stage 2: Plan: Present on admission secondary to patient being found down at home Optifoams, frequent turning, etc. --> is S/P drbridement and wound vac in place. wound recommendations in place for discharge wound care following the pt, santyl's added once daily - will need outpatient F/U ([phone]). cont MVI/vit C/zinc/thiamine. waffle cushion for comfort, pain control ordered --> reports improvement in discomfort and no need for medication outside of occasional tylenol (12) Chronic kidney disease, stage 3a: Plan: baseline CrCl 50s stable. Continue with current management and monitoring. obtain BW in 2 weeks. (13) Antibiotic-associated diarrhea: Plan: Frequent loose stools which is likely related to antibiotic associated diarrhea Add probiotic and yogurt with live cultures Not highly suspicious for C. difficile at this time in the setting of antibiotics (especially on Flagyl). no complaints today. Continue with current management and monitoring. (14) Need for case management follow-up: Plan: Pt will need SNF for inpatient PT/OT, wound care and IV abx therapy. She is medically/hemodynamically stable for discharge. Case management is on board. They did get a call from [facility] on 06/03/21 but unfortunately there are no beds available this week. Admission and Anticipated Discharge Date Admission Date: April 18, 2021 Subjective Pt is in her chair today. she is trying to do her work search. We did find one word together "[place]". Tomorrow she'd like to do 4 or 5 words together... no complaints offered. States she is feeling very well. Review of Systems Review of Systems: All systems reviewed and are unremarkable except as noted in HPI and below Denies fevers, chills, headache, nasal congestion, sore throat, cough, chest pain, shortness of breath, palpitations, orthopnea, PND, abdominal pain, nausea, vomiting, constipation, dysuria, hematuria, frequency, back pain, joint pain or swelling, easy bruising or bleeding, skin lesions or rashes. Physical Exam Physical Exam: General: in a chair. NAD. HEENT: sclera/conjunctiva WNL/non icteric. PERRLA EOMI. moist membranes. Neck: supple, no lymphadenopathy. No JVD. Cardiac: RRR with 1/6 MADELINE Lungs: CTA without W/R/R Abdomen: soft, NT/ND, BS WNL. Extremities: PICC line to right upper extremity. No peripheral edema of the lower extremities Neuro: Oriented to person/self, place and somewhat to situation. Cranial nerves II through XII are grossly intact no focal neuro deficits Skin: No obvious skin lesions or rashes-- wound vac in place to sacral wound Psych: Appropriate affect pleasant and cooperative Results & Data Results & Data ([facility]) Vital Signs (Past 12 Hours) Vital Signs Temp Pulse Pulse Resp BP Pulse Ox 06/05/21 07:09 36.6 C 99 H 16 111/70 92 06/04/21 22:30 36.9 C 92 H 15 125/72 93 PG Care Time/CCT Total # of Minutes Spent Total Time Spent with Patient: Total time spent is greater than 50% in coordination of care (as documented) at patient's floor/unit and/or counseling patient: Coding Level of Care Code 27909 Subseq Hosp Care Lvl 3 Diagnoses Sacral decubitus ulcer, stage IV L89.154 Metabolic encephalopathy G93.41 Pneumonia due to COVID-19 virus U07.1; J12.82 Dizziness R42 Parkinsons disease G20 UTI (urinary tract infection) N39.0 Dysphagia R13.10 Hypernatremia E87.0 Diabetes E11.9 Rhabdomyolysis M62.82 Rhabdomyolysis type: non-traumatic Pressure injury of back, stage 2 L89.102 Chronic kidney disease, stage 3a N18.31 Antibiotic-associated diarrhea K52.1; T36.95XA Need for case management follow-up Z09 (1) Rhabdomyolysis Rhabdomyolysis type: non-traumatic Qualified Code(s): M62.82 - Rhabdomyolysis
[2021-06-05] MEDS: POLYETHYLENE (MIRALAX) 17 GM PACK PO SCH (08:18)
[2021-06-05] MEDS: THIAMINE HCL 100 MG TAB PO SCH ×2 (08:19→20:02)
[2021-06-05] MEDS: metroNIDAZOLE 500 MG TAB PO SCH ×3 (08:19→20:03)
[2021-06-05] MEDS: ZINC SULFATE 220 MG CAPSULE PO SCH (08:19)
[2021-06-05] MEDS: DOCUSATE SODIUM/SENNA 50/8.6MG TAB PO SCH (08:19)
[2021-06-05] MEDS: ADVANCED PROBIOTIC 1250 MG CAPSULE PO SCH (08:19)
[2021-06-05] MEDS: CARBIDOPA/LEVODOPA 25/100MG TAB PO SCH ×4 (08:19→20:03)
[2021-06-05] MEDS: CEROVITE ADV FORMULA TAB PO SCH (08:19)
[2021-06-05] MEDS: ASCORBIC ACID 500 MG TAB PO SCH (08:20)
[2021-06-05] MEDS: ENOXAPARIN INJ 30 MG/0.3 ML SYR SQ SCH (08:20)
[2021-06-05] MEDS: metFORMIN HCL 500 MG TAB PO SCH ×2 (08:20→17:05)
[2021-06-05] MEDS: DICLOFENAC SOD 1% GEL 100 GM TUBE EXT SCH ×3 (08:20→20:03)
[2021-06-05] MEDS: glyBURIDE 5 MG TAB PO SCH ×2 (08:20→17:06)
[2021-06-05] MEDS: INSULIN GLARGINE SOLOSTAR 100 UNITS/ML 3 ML PEN SC SCH (08:20)
[2021-06-05] MEDS: cefTRIAXone SODIUM 2,000 MG in DEXTROSE 5% 50 ML IV SCH (17:04)
[2021-06-05] MEDS: risperiDONE 1 MG/ML SOLUTION PO SCH (20:03)
--- NOTE | 2021-06-06 07:42 | Hospitalist Progress Note ---
Date of Service June 06, 2021 Assessment & Plan (1) Sacral decubitus ulcer, stage IV: Plan: Surgery was consulted on 05/22 at the request of Wound Care as her sacral ulcer was not responding to conservative care. - Debrided by Dr. Simon on 05/22/2021 - Wound culture sent at that time. Of note, she has exposed bone from the debridement, so she de facto has osteomyelitis. - Wound culture showing Bacteroides and anaerobic gram-positive bacilli - Consulted ID -> Plan for 6 weeks of abx therapy. - continue wound care as guided by general surgery.--> wound vac in place - plan for 6 weeks of Rocephin/Flagyl (07/09/21) - PICC line in place. 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 - significantly improved and likely near baseline -MRI brain without acute or subacute CVA; no ICH, tumor, etc. recent b12/tsh wnl -Daughter she states that several months ago the patient was a/o x 3 and living independently . -Continue empiric thiamine 200mg BID x 1 month - remains stable at this time and answering questions appropriately - Continue with risperidone 0.5 mg PO HS (started by prior attending and doing well on this) Continue with current management and monitoring. (3) Pneumonia due to COVID-19 virus: Plan: -clinically resolved - NC O2 weaned off 05/03/21 and pt is stable on RA since. - s/p 10 day course of dexamethasone - no symptoms at this time -today 99% on RA *Received J&J COVID vaccine 05/19/21 as needed for placement. (4) Dizziness: Plan: Admitted when found down at home, + COVID as above and completed treatment Question of syncope at home, and + murmur on examination without ECHO having been performed as ordered on admission No focal deficit concerning for CVA, sounds more like orthostatic hypotension vs BPPV --> given 500cc NSS and no further dizziness reported(orthostasis common in Parkinson pts). Unfortunately had fall as bed alarm not turned on evening 05/20--> CT head negative as above ECHO without significant valvular dysfunction. asymptomatic at this time. Meclizine available prn Continue with current management and monitoring. (5) Parkinsons disease: Plan: Stable. Continue with Carbidopa-Levadopa per home dosing MRI brain neg for acute findings risperdal low dose 0.5mg HS - has helped delirium. Continue with current management and monitoring. (6) UTI (urinary tract infection): Plan: resolved. s/p levaquin. (7) Dysphagia: Plan: advanced to regular diet yesterday. pt tolerating it well. Continue with current management and monitoring. (8) Hypernatremia: Plan: resolved. (9) Diabetes: Plan: controlled. Last A1C 6.5. continue with metformin and glyburide. last night we did have an episode of hypoglycemia, (65) and she was given some juice. nurse contacted me and we decided to hold her ISS, and decrease her Lantus from 8 to 4 units. pt is eating well. Continue with current management and monitoring. (10) Rhabdomyolysis: Plan: resolved. pt was found on the floor in her home prior to the admission ==>likely to be the cause. (COVID also may have contributed). (11) Pressure injury of back, stage 2: Plan: Present on admission secondary to patient being found down at home Optifoams, frequent turning, etc. --> is S/P drbridement and wound vac in place. wound recommendations in place for discharge wound care following the pt, santyl's added once daily - will need outpatient F/U ([phone]). cont MVI/vit C/zinc/thiamine. waffle cushion for comfort, pain control ordered --> reports improvement in discomfort and no need for medication outside of occasional tylenol (12) Chronic kidney disease, stage 3a: Plan: baseline CrCl 50s stable. Continue with current management and monitoring. obtain BW in 2 weeks. (13) Antibiotic-associated diarrhea: Plan: Frequent loose stools which is likely related to antibiotic associated diarrhea Add probiotic and yogurt with live cultures Not highly suspicious for C. difficile at this time in the setting of antibiotics (especially on Flagyl). no complaints today. Continue with current management and monitoring. (14) Need for case management follow-up: Plan: Pt will need SNF for inpatient PT/OT, wound care and IV abx therapy. She is medically/hemodynamically stable for discharge. Case management is on board. They did get a call from [facility] on 06/03/21 but unfortunately there are no beds available this week. Admission and Anticipated Discharge Date Admission Date: April 18, 2021 Subjective Pt is in her bed today. states she slept well. we did not do the word search this morning (as we discussed yesterday), since she's still in bed. no significant complaints. Review of Systems Review of Systems: All systems reviewed and are unremarkable except as noted in HPI and below Denies fevers, chills, headache, nasal congestion, sore throat, cough, chest pain, shortness of breath, palpitations, orthopnea, PND, abdominal pain, nausea, vomiting, constipation, dysuria, hematuria, frequency, back pain, joint pain or swelling, easy bruising or bleeding, skin lesions or rashes. Physical Exam Physical Exam: General: in a chair. NAD. HEENT: sclera/conjunctiva WNL/non icteric. PERRLA EOMI. moist membranes. Neck: supple, no lymphadenopathy. No JVD. Cardiac: RRR with 1/6 MADELINE Lungs: CTA without W/R/R Abdomen: soft, NT/ND, BS WNL. Extremities: PICC line to right upper extremity. No peripheral edema of the lower extremities Neuro: Oriented to person/self, place and somewhat to situation. Cranial nerves II through XII are grossly intact no focal neuro deficits Skin: No obvious skin lesions or rashes-- wound vac in place to sacral wound Psych: Appropriate affect pleasant and cooperative Results & Data Results & Data ([facility]) Vital Signs (Past 12 Hours) Vital Signs Temp Pulse Resp BP BP Pulse Ox 06/06/21 07:14 36.7 C 87 16 119/75 95 06/06/21 02:29 36.9 C 95 H 16 131/72 94 PG Care Time/CCT Total # of Minutes Spent Total Time Spent with Patient: Total time spent is greater than 50% in coordination of care (as documented) at patient's floor/unit and/or counseling patient: Coding Level of Care Code 04702 Subseq Hosp Care Lvl 3 Diagnoses Sacral decubitus ulcer, stage IV L89.154 Metabolic encephalopathy G93.41 Pneumonia due to COVID-19 virus U07.1; J12.82 Dizziness R42 Parkinsons disease G20 UTI (urinary tract infection) N39.0 Dysphagia R13.10 Hypernatremia E87.0 Diabetes E11.9 Rhabdomyolysis M62.82 Rhabdomyolysis type: non-traumatic Pressure injury of back, stage 2 L89.102 Chronic kidney disease, stage 3a N18.31 Antibiotic-associated diarrhea K52.1; T36.95XA Need for case management follow-up Z09 (1) Rhabdomyolysis Rhabdomyolysis type: non-traumatic Qualified Code(s): M62.82 - Rhabdomyolysis
[2021-06-06] MEDS: THIAMINE HCL 100 MG TAB PO SCH ×2 (09:08→19:57)
[2021-06-06] MEDS: DOCUSATE SODIUM/SENNA 50/8.6MG TAB PO SCH (09:08)
[2021-06-06] MEDS: glyBURIDE 5 MG TAB PO SCH ×2 (09:08→16:20)
[2021-06-06] MEDS: ADVANCED PROBIOTIC 1250 MG CAPSULE PO SCH (09:08)
[2021-06-06] MEDS: CEROVITE ADV FORMULA TAB PO SCH (09:08)
[2021-06-06] MEDS: metroNIDAZOLE 500 MG TAB PO SCH ×3 (09:08→19:57)
[2021-06-06] MEDS: CARBIDOPA/LEVODOPA 25/100MG TAB PO SCH ×4 (09:08→19:56)
[2021-06-06] MEDS: ZINC SULFATE 220 MG CAPSULE PO SCH (09:08)
[2021-06-06] MEDS: ASCORBIC ACID 500 MG TAB PO SCH (09:08)
[2021-06-06] MEDS: metFORMIN HCL 500 MG TAB PO SCH ×2 (09:08→16:19)
[2021-06-06] MEDS: ENOXAPARIN INJ 30 MG/0.3 ML SYR SQ SCH (09:09)
[2021-06-06] MEDS: POLYETHYLENE (MIRALAX) 17 GM PACK PO SCH (09:09)
[2021-06-06] MEDS: DICLOFENAC SOD 1% GEL 100 GM TUBE EXT SCH ×3 (09:10→19:56)
[2021-06-06] MEDS: INSULIN GLARGINE SOLOSTAR 100 UNITS/ML 3 ML PEN SC SCH (09:18)
[2021-06-06] MEDS: cefTRIAXone SODIUM 2,000 MG in DEXTROSE 5% 50 ML IV SCH (18:07)
[2021-06-06] MEDS: risperiDONE 1 MG/ML SOLUTION PO SCH (19:56)
[2021-06-07] MEDS: DOCUSATE SODIUM/SENNA 50/8.6MG TAB PO SCH (08:33)
[2021-06-07] MEDS: POLYETHYLENE (MIRALAX) 17 GM PACK PO SCH (08:33)
[2021-06-07] MEDS: DICLOFENAC SOD 1% GEL 100 GM TUBE EXT SCH ×3 (08:34→21:05)
[2021-06-07] MEDS: ENOXAPARIN INJ 30 MG/0.3 ML SYR SQ SCH (08:34)
[2021-06-07] MEDS: metroNIDAZOLE 500 MG TAB PO SCH ×3 (08:35→21:04)
[2021-06-07] MEDS: CARBIDOPA/LEVODOPA 25/100MG TAB PO SCH ×4 (08:35→21:04)
[2021-06-07] MEDS: ADVANCED PROBIOTIC 1250 MG CAPSULE PO SCH (08:35)
[2021-06-07] MEDS: metFORMIN HCL 500 MG TAB PO SCH ×2 (08:35→17:37)
[2021-06-07] MEDS: glyBURIDE 5 MG TAB PO SCH ×2 (08:35→17:36)
[2021-06-07] MEDS: INSULIN GLARGINE SOLOSTAR 100 UNITS/ML 3 ML PEN SC SCH (08:36)
--- NOTE | 2021-06-07 12:36 | Hospitalist Progress Note ---
Date of Service June 07, 2021 Assessment & Plan (1) Sacral decubitus ulcer, stage IV: Plan: Surgery was consulted on 05/22 at the request of Wound Care as her sacral ulcer was not responding to conservative care. - Debrided by Dr. Simon on 05/22/2021 - Wound culture sent at that time. Of note, she has exposed bone from the debridement, so she de facto has osteomyelitis. - Wound culture showing Bacteroides and anaerobic gram-positive bacilli - Consulted ID -> Plan for 6 weeks of abx therapy. - continue wound care as guided by general surgery.--> wound vac in place - plan for 6 weeks of Rocephin/Flagyl (07/09/21) - PICC line in place. 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 - significantly improved and likely near baseline -MRI brain without acute or subacute CVA; no ICH, tumor, etc. recent b12/tsh wnl -Daughter she states that several months ago the patient was a/o x 3 and living independently . -Continue empiric thiamine 200mg BID x 1 month - remains stable at this time and answering questions appropriately - Continue with risperidone 0.5 mg PO HS (started by prior attending and doing well on this) Continue with current management and monitoring. (3) Pneumonia due to COVID-19 virus: Plan: -clinically resolved - NC O2 weaned off 05/03/21 and pt is stable on RA since. - s/p 10 day course of dexamethasone - no symptoms at this time -today 99% on RA *Received J&J COVID vaccine 05/19/21 as needed for placement. (4) Dizziness: Plan: Admitted when found down at home, + COVID as above and completed treatment Question of syncope at home, and + murmur on examination without ECHO having been performed as ordered on admission No focal deficit concerning for CVA, sounds more like orthostatic hypotension vs BPPV --> given 500cc NSS and no further dizziness reported(orthostasis common in Parkinson pts). Unfortunately had fall as bed alarm not turned on evening 05/20--> CT head negative as above ECHO without significant valvular dysfunction. asymptomatic at this time. Meclizine available prn Continue with current management and monitoring. (5) Parkinsons disease: Plan: Stable. 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 Continue with current management and monitoring. (6) UTI (urinary tract infection): Plan: resolved. s/p levaquin. (7) Dysphagia: Plan: advanced to regular diet yesterday. pt tolerating it well. Continue with current management and monitoring. (8) Hypernatremia: Plan: resolved. (9) Diabetes: Plan: controlled. Last A1C 6.5. continue with metformin and glyburide. Patient Lantus decreased from 8 units to 4 units 06/04 for overnight hypoglycemia, last night we did have an episode of hypoglycemia, BSG [id number] since then, continue to follow with SSI pt is eating well. Continue with current management and monitoring. (10) Rhabdomyolysis: Plan: resolved. pt was found on the floor in her home prior to the admission ==>likely to be the cause. (COVID also may have contributed). (11) Pressure injury of back, stage 2: Plan: Present on admission secondary to patient being found down at home Optifoams, frequent turning, etc. --> is S/P drbridement and wound vac in place. wound recommendations in place for discharge wound care following the pt, santyl's added once daily - will need outpatient F/U ([phone]). cont MVI/vit C/zinc/thiamine. waffle cushion for comfort, pain control ordered --> reports improvement in discomfort and no need for medication outside of occasional tylenol (12) Chronic kidney disease, stage 3a: Plan: baseline CrCl 50s stable. Continue with current management and monitoring. obtain BW in 2 weeks. (13) Antibiotic-associated diarrhea: Plan: Frequent loose stools which is likely related to antibiotic associated diarrhea Continue probiotic and yogurt with live cultures Not highly suspicious for C. difficile at this time in the setting of antibiotics (especially on Flagyl). no complaints today. (14) Need for case management follow-up: Plan: Pt will need SNF for inpatient PT/OT, wound care and IV abx therapy. She is medically/hemodynamically stable for discharge. Case management is on board. They did get a call from [facility] on 05/24 06/14 but unfortunately there are no beds available this week. Admission and Anticipated Discharge Date Admission Date: April 18, 2021 Subjective Feels well, no changes today. No back pain at time of assessment. Denies fever, chills, sweats. Denies nausea/vomiting. Reports she has been eating and tolerating meals well today. No acute questions or concerns, we are continuing to await placement Review of Systems Review of Systems: All systems reviewed & are unremarkable except as noted in Subjective Physical Exam Physical Exam: General: Oriented to name and place. Thin. Pleasant, no distress. HEENT: Atraumatic, normocephalic. Visual acuity and hearing grossly intact Pulm: good air movement CTAB A&P. -wheezes, -rales, -rhonchi. Symmetrical chest rise. No increase work of breathing. No respiratory distress. Cardiac: RRR, -mrg. Radial pulses intact and symmetrical. Abdominal: Nontender, nondistended, soft. BS present. Sacrum: VAC in place, C/D/I. No surrounding erythema. Well-healing. Results & Data Results & Data ([facility]) Vital Signs (Past 12 Hours) Vital Signs Temp Pulse Resp BP Pulse Ox 06/07/21 07:02 36.9 C 88 16 125/74 96 PG Care Time/CCT Total # of Minutes Spent Total Time Spent with Patient: Total time spent is greater than 50% in coordination of care (as documented) at patient's floor/unit and/or counseling patient: Coding Level of Care Code 49672 Subseq Hosp Care Lvl 2 Diagnoses Sacral decubitus ulcer, stage IV L89.154 Metabolic encephalopathy G93.41 Pneumonia due to COVID-19 virus U07.1; J12.82 Dizziness R42 Parkinsons disease G20 UTI (urinary tract infection) N39.0 Dysphagia R13.10 Hypernatremia E87.0 Diabetes E11.9 Rhabdomyolysis M62.82 Rhabdomyolysis type: non-traumatic Pressure injury of back, stage 2 L89.102 Chronic kidney disease, stage 3a N18.31 Antibiotic-associated diarrhea K52.1; T36.95XA Need for case management follow-up Z09 (1) Rhabdomyolysis Rhabdomyolysis type: non-traumatic Qualified Code(s): M62.82 - Rhabdomyolysis
[2021-06-07] MEDS: cefTRIAXone SODIUM 2,000 MG in DEXTROSE 5% 50 ML IV SCH (18:01)
[2021-06-07] MEDS: risperiDONE 1 MG/ML SOLUTION PO SCH (21:03)
[2021-06-07] MEDS: THIAMINE HCL 100 MG TAB PO SCH (21:05)
[2021-06-08] MEDS: DOCUSATE SODIUM/SENNA 50/8.6MG TAB PO SCH (08:23)
[2021-06-08] MEDS: POLYETHYLENE (MIRALAX) 17 GM PACK PO SCH (08:24)
[2021-06-08] MEDS: metFORMIN HCL 500 MG TAB PO SCH ×2 (08:25→17:17)
[2021-06-08] MEDS: glyBURIDE 5 MG TAB PO SCH ×2 (08:25→17:16)
[2021-06-08] MEDS: DICLOFENAC SOD 1% GEL 100 GM TUBE EXT SCH ×3 (08:25→20:32)
[2021-06-08] MEDS: ENOXAPARIN INJ 30 MG/0.3 ML SYR SQ SCH (08:25)
[2021-06-08] MEDS: ASCORBIC ACID 500 MG TAB PO SCH (08:25)
[2021-06-08] MEDS: CARBIDOPA/LEVODOPA 25/100MG TAB PO SCH ×4 (08:25→20:31)
[2021-06-08] MEDS: ADVANCED PROBIOTIC 1250 MG CAPSULE PO SCH (08:26)
[2021-06-08] MEDS: THIAMINE HCL 100 MG TAB PO SCH ×2 (08:26→20:31)
[2021-06-08] MEDS: metroNIDAZOLE 500 MG TAB PO SCH ×3 (08:26→20:30)
[2021-06-08] MEDS: CEROVITE ADV FORMULA TAB PO SCH (08:26)
[2021-06-08] MEDS: ZINC SULFATE 220 MG CAPSULE PO SCH (08:27)
[2021-06-08] MEDS: INSULIN GLARGINE SOLOSTAR 100 UNITS/ML 3 ML PEN SC SCH (08:28)
--- NOTE | 2021-06-08 14:01 | Hospitalist Progress Note ---
Date of Service June 08, 2021 Assessment & Plan (1) Sacral decubitus ulcer, stage IV: Plan: Surgery was consulted on 05/22 at the request of Wound Care as her sacral ulcer was not responding to conservative care. - Debrided by Dr. Simon on 05/22/2021 - Wound culture sent at that time. Of note, she has exposed bone from the debridement, so she de facto has osteomyelitis. - Wound culture showing Bacteroides and anaerobic gram-positive bacilli - Consulted ID -> Plan for 6 weeks of abx therapy. - continue wound care as guided by general surgery.--> wound vac in place - plan for 6 weeks of Rocephin/Flagyl (07/09/21) - PICC line in place. 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 - significantly improved and likely near baseline -MRI brain without acute or subacute CVA; no ICH, tumor, etc. recent b12/tsh wnl -Daughter she states that several months ago the patient was a/o x 3 and living independently . -Continue empiric thiamine 200mg BID x 1 month - remains stable at this time and answering questions appropriately - Continue with risperidone 0.5 mg PO HS (started by prior attending and doing well on this) Continue with current management and monitoring. (3) Pneumonia due to COVID-19 virus: Plan: -clinically resolved - NC O2 weaned off 05/03/21 and pt is stable on RA since. - s/p 10 day course of dexamethasone - no symptoms at this time -today 99% on RA *Received J&J COVID vaccine 05/19/21 as needed for placement. (4) Dizziness: Plan: Admitted when found down at home, + COVID as above and completed treatment Question of syncope at home, and + murmur on examination without ECHO having been performed as ordered on admission No focal deficit concerning for CVA, sounds more like orthostatic hypotension vs BPPV --> given 500cc NSS and no further dizziness reported(orthostasis common in Parkinson pts). Unfortunately had fall as bed alarm not turned on evening 05/20--> CT head negative as above ECHO without significant valvular dysfunction. asymptomatic at this time. Meclizine available prn Continue with current management and monitoring. (5) Parkinsons disease: Plan: Stable. 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 Continue with current management and monitoring. (6) UTI (urinary tract infection): Plan: resolved. s/p levaquin. (7) Dysphagia: Plan: advanced to regular diet yesterday. pt tolerating it well. Continue with current management and monitoring. (8) Hypernatremia: Plan: resolved. (9) Diabetes: Plan: controlled. Last A1C 6.5. continue with metformin and glyburide. Patient Lantus decreased from 8 units to 4 units 06/04 for overnight hypoglycemia, continue to follow with SSI pt is eating well. Continue with current management and monitoring. (10) Rhabdomyolysis: Plan: resolved. pt was found on the floor in her home prior to the admission ==>likely to be the cause. (COVID also may have contributed). (11) Pressure injury of back, stage 2: Plan: Present on admission secondary to patient being found down at home Optifoams, frequent turning, etc. --> is S/P drbridement and wound vac in place. wound recommendations in place for discharge wound care following the pt, santyl's added once daily - will need outpatient F/U ([phone]). cont MVI/vit C/zinc/thiamine. waffle cushion for comfort, pain control ordered --> reports improvement in discomfort and no need for medication outside of occasional tylenol (12) Chronic kidney disease, stage 3a: Plan: baseline CrCl 50s stable. Continue with current management and monitoring. obtain BW in 2 weeks. (13) Antibiotic-associated diarrhea: Plan: Frequent loose stools which is likely related to antibiotic associated diarrhea Continue probiotic and yogurt with live cultures Not highly suspicious for C. difficile at this time in the setting of antibiotics (especially on Flagyl). no complaints today. (14) Need for case management follow-up: Plan: Pt will need SNF for inpatient PT/OT, wound care and IV abx therapy. She is medically/hemodynamically stable for discharge. Case management is on board. They did get a call from [facility] on 06/03/21 but unfortunately there are no beds available this week. Admission and Anticipated Discharge Date Admission Date: April 18, 2021 Subjective Oriented to name and month, no acute distress. No changes overnight, pleasant. No additional questions or concerns on exam today. No back pain. no chest pain. No difficulty breathing. Has been voiding today. Review of Systems Review of Systems: All systems reviewed & are unremarkable except as noted in Subjective Physical Exam Physical Exam: General: Oriented to name, place, and month. Thin. Pleasant, no distress. HEENT: Atraumatic, normocephalic. Visual acuity and hearing grossly intact Pulm: good air movement CTAB A&P. -wheezes, -rales, -rhonchi. Symmetrical chest rise. No increase work of breathing. No respiratory distress. Cardiac: RRR, -mrg. Radial pulses intact and symmetrical. Abdominal: Nontender, nondistended, soft. BS present. Sacrum: VAC in place, C/D/I. No surrounding erythema. Well-healing. Results & Data Results & Data ([facility]) Vital Signs (Past 12 Hours) Vital Signs Temp Pulse Resp BP Pulse Ox 06/08/21 07:06 37 C 87 16 135/78 96 PG Care Time/CCT Total # of Minutes Spent Total Time Spent with Patient: Total time spent is greater than 50% in coordination of care (as documented) at patient's floor/unit and/or counseling patient: Coding Level of Care Code 41517 Subseq Hosp Care Lvl 1 Diagnoses Sacral decubitus ulcer, stage IV L89.154 Metabolic encephalopathy G93.41 Pneumonia due to COVID-19 virus U07.1; J12.82 Dizziness R42 Parkinsons disease G20 UTI (urinary tract infection) N39.0 Dysphagia R13.10 Hypernatremia E87.0 Diabetes E11.9 Rhabdomyolysis M62.82 Rhabdomyolysis type: non-traumatic Pressure injury of back, stage 2 L89.102 Chronic kidney disease, stage 3a N18.31 Antibiotic-associated diarrhea K52.1; T36.95XA Need for case management follow-up Z09 (1) Rhabdomyolysis Rhabdomyolysis type: non-traumatic Qualified Code(s): M62.82 - Rhabdomyolysis
[2021-06-08] MEDS: cefTRIAXone SODIUM 2,000 MG in DEXTROSE 5% 50 ML IV SCH (17:16)
[2021-06-08] MEDS: risperiDONE 1 MG/ML SOLUTION PO SCH (20:31)
[2021-06-09] MEDS: CEROVITE ADV FORMULA TAB PO SCH (08:37)
[2021-06-09] MEDS: ZINC SULFATE 220 MG CAPSULE PO SCH (08:37)
[2021-06-09] MEDS: CARBIDOPA/LEVODOPA 25/100MG TAB PO SCH ×4 (08:37→21:10)
[2021-06-09] MEDS: ADVANCED PROBIOTIC 1250 MG CAPSULE PO SCH (08:37)
[2021-06-09] MEDS: glyBURIDE 5 MG TAB PO SCH ×2 (08:37→17:14)
[2021-06-09] MEDS: metFORMIN HCL 500 MG TAB PO SCH ×2 (08:38→17:15)
[2021-06-09] MEDS: ENOXAPARIN INJ 30 MG/0.3 ML SYR SQ SCH (08:38)
[2021-06-09] MEDS: ASCORBIC ACID 500 MG TAB PO SCH (08:38)
[2021-06-09] MEDS: THIAMINE HCL 100 MG TAB PO SCH ×2 (08:38→21:09)
[2021-06-09] MEDS: DICLOFENAC SOD 1% GEL 100 GM TUBE EXT SCH ×3 (08:38→21:11)
[2021-06-09] MEDS: DOCUSATE SODIUM/SENNA 50/8.6MG TAB PO SCH (08:39)
[2021-06-09] MEDS: POLYETHYLENE (MIRALAX) 17 GM PACK PO SCH (08:39)
[2021-06-09] MEDS: metroNIDAZOLE 500 MG TAB PO SCH ×3 (08:40→21:10)
[2021-06-09] MEDS: INSULIN GLARGINE SOLOSTAR 100 UNITS/ML 3 ML PEN SC SCH (08:42)
--- NOTE | 2021-06-09 10:11 | Hospitalist Progress Note ---
Date of Service June 09, 2021 Assessment & Plan (1) Sacral decubitus ulcer, stage IV: Plan: Surgery was consulted on 05/22 at the request of Wound Care as her sacral ulcer was not responding to conservative care. - Debrided by Dr. Simon on 05/22/2021 - Wound culture sent at that time. Of note, she has exposed bone from the debridement, so she de facto has osteomyelitis. - Wound culture showing Bacteroides and anaerobic gram-positive bacilli - Consulted ID -> Plan for 6 weeks of abx therapy. - continue wound care as guided by general surgery.--> wound vac in place - plan for 6 weeks of Rocephin/Flagyl (07/09/21) - PICC line in place. 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 - significantly improved and likely near baseline -MRI brain without acute or subacute CVA; no ICH, tumor, etc. recent b12/tsh wnl -Daughter she states that several months ago the patient was a/o x 3 and living independently . -Continue empiric thiamine 200mg BID x 1 month - remains stable at this time and answering questions appropriately - Continue with risperidone 0.5 mg PO HS (started by prior attending and doing well on this) Continue with current management and monitoring. (3) Pneumonia due to COVID-19 virus: Plan: -clinically resolved - NC O2 weaned off 05/03/21 and pt is stable on RA since. - s/p 10 day course of dexamethasone - no symptoms at this time -today 99% on RA *Received J&J COVID vaccine 05/19/21 as needed for placement. (4) Dizziness: Plan: Admitted when found down at home, + COVID as above and completed treatment Question of syncope at home, and + murmur on examination without ECHO having been performed as ordered on admission No focal deficit concerning for CVA, sounds more like orthostatic hypotension vs BPPV --> given 500cc NSS and no further dizziness reported(orthostasis common in Parkinson pts). Unfortunately had fall as bed alarm not turned on evening 05/20--> CT head negative as above ECHO without significant valvular dysfunction. asymptomatic at this time. Meclizine available prn Continue with current management and monitoring. (5) Parkinsons disease: Plan: Stable. 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 Continue with current management and monitoring. (6) UTI (urinary tract infection): Plan: resolved. s/p levaquin. (7) Dysphagia: Plan: advanced to regular diet yesterday. pt tolerating it well. Continue with current management and monitoring. (8) Hypernatremia: Plan: resolved. (9) Diabetes: Plan: controlled. Last A1C 6.5. continue with metformin and glyburide. Patient Lantus decreased from 8 units to 4 units 06/04 for overnight hypoglycemia, continue to follow with SSI pt is eating well. Continue with current management and monitoring. (10) Rhabdomyolysis: Plan: resolved. pt was found on the floor in her home prior to the admission ==>likely to be the cause. (COVID also may have contributed). (11) Pressure injury of back, stage 2: Plan: Present on admission secondary to patient being found down at home Optifoams, frequent turning, etc. --> is S/P drbridement and wound vac in place. wound recommendations in place for discharge wound care following the pt, santyl's added once daily - will need outpatient F/U ([phone]). cont MVI/vit C/zinc/thiamine. waffle cushion for comfort, pain control ordered --> reports improvement in discomfort and no need for medication outside of occasional tylenol (12) Chronic kidney disease, stage 3a: Plan: baseline CrCl 50s stable. Continue with current management and monitoring. obtain BW in 2 weeks. (13) Antibiotic-associated diarrhea: Plan: Frequent loose stools which is likely related to antibiotic associated diarrhea Continue probiotic and yogurt with live cultures Not highly suspicious for C. difficile at this time in the setting of antibiotics (especially on Flagyl). no complaints today. (14) Need for case management follow-up: Plan: Pt will need SNF for inpatient PT/OT, wound care and IV abx therapy. She is medically/hemodynamically stable for discharge. Case management is on board. They did get a call from [facility] on 06/03/21 but unfortunately there are no beds yet available Admission and Anticipated Discharge Date Admission Date: April 18, 2021 Subjective Seen at bedside this morning. Pt reports no pain at rest, some pain with moving unchanged from prior. Eating well. No nausea/vomiting/. No shortness of breath, chest pain, chest pressure, fever, chills, sweats overnight. Pt in anticipation of wound vac change today. No other questions or concerns at bedside exam. P\ Review of Systems Review of Systems: All systems reviewed & are unremarkable except as noted in Subjective Physical Exam Physical Exam: General: Oriented to name, place, and month. Thin. Pleasant, no distress. Cooperative. HEENT: Atraumatic, normocephalic. Visual acuity and hearing grossly intact Pulm: good air movement CTAB A&P. -wheezes, -rales, -rhonchi. Symmetrical chest rise. No increase work of breathing. No respiratory distress. Cardiac: RRR, -mrg. Radial pulses intact and symmetrical. Abdominal: Nontender, nondistended, soft. BS present. Sacrum: VAC in place, C/D/I. No surrounding erythema. Well-healing. No air leak. Results & Data Results & Data ([facility]) Vital Signs (Past 12 Hours) Vital Signs Temp Pulse Resp BP Pulse Ox 06/09/21 07:26 36.9 C 80 18 116/70 97 06/08/21 23:06 36.9 C 89 17 110/71 96 PG Care Time/CCT Total # of Minutes Spent Total Time Spent with Patient: Total time spent is greater than 50% in coordination of care (as documented) at patient's floor/unit and/or counseling patient: Coding Level of Care Code 33158 Subseq Hosp Care Lvl 1 Diagnoses Sacral decubitus ulcer, stage IV L89.154 Metabolic encephalopathy G93.41 Pneumonia due to COVID-19 virus U07.1; J12.82 Dizziness R42 Parkinsons disease G20 UTI (urinary tract infection) N39.0 Dysphagia R13.10 Hypernatremia E87.0 Diabetes E11.9 Rhabdomyolysis M62.82 Rhabdomyolysis type: non-traumatic Pressure injury of back, stage 2 L89.102 Chronic kidney disease, stage 3a N18.31 Antibiotic-associated diarrhea K52.1; T36.95XA Need for case management follow-up Z09 (1) Rhabdomyolysis Rhabdomyolysis type: non-traumatic Qualified Code(s): M62.82 - Rhabdomyolysis
--- NOTE | 2021-06-09 16:16 | Surgery Progress Note ---
Date of Service June 09, 2021 Assessment & Plan (1) Sacral decubitus ulcer, stage IV: Plan: pt is a 76 year-old female who is asked for consult debridement sacral ulcer, IMP: sacral ulcer, Plan, I recommend to do debridement sacral ulcer at bedside, D/W benefits, risks and alternatives of the the procedure with pt and pt's daughter Aline( on phone), the risks - infection, bleeding, may need more procedure, they understood, pt's daughter gave the consent on the phone, I answered all questions, at bed side, after time out, apply betadine on wound, remove necrotic tissue, deep to close bone, minimal active bleeding after apply pressure the bleeding is stop, wound culture sent, apply bacitricin on wound cover 4X4 gouze, pt tolerated the procedure well, pt did not feel any pain, the nurse at bedside assist me, wound care nurse change dressing once a day, will F/U 05/27/2021 1:23PM pt is doing better, no fever, normal WBC, wound culture G+ Cocci continue treatment, dressing change by wound care nurse once a day, sign off today, please call with questions, thanks, 06/09/2021 4:08PM pt is stable, no fever, continue antibiotic treatment, continue Wound VAC, any question with bone infection, pt should have MRI to to R/O osteomyelitis, if positive -should consult orthopedic surgery, pt will Follow up [facility] wound care center, once pt is discharged to custodial, F/U me prn, Admission and Anticipated Discharge Date Admission Date: April 18, 2021 Supervising Physician Co-Signing Physician Notes chart reviewed, case d/w J Denisse PAC. agree w above Subjective Seen at bedside this morning. Pt reports no pain at rest, some pain with moving unchanged from prior. Eating well. No nausea/vomiting/. No shortness of breath, chest pain, chest pressure, fever, chills, sweats overnight. Pt in anticipation of wound vac change today. No other questions or concerns at bedside exam. P\ 06/09/2021, 4:05PM, DR. Simon F/U sacral ulcer, pt is stable, no fever, the wound vac is on, wound culture reviewed, Review of Systems Constitutional: as per Subjective / HPI Eyes: as per Subjective / HPI Respiratory: pneumonia-COVID Cardiovascular: Additional Comments: HLD Gastrointestinal: dysphagia Genitourinary: urinary retention, chronic kidney disease stage 3a Musculoskeletal: pressure injury of back Neurologic: Parkinsons disease, metabolic encephalopathy Psychiatric: as per Subjective / HPI Endocrine: DM Hematologic / Lymphatic: as per Subjective / HPI Physical Exam Eyes: PERRL, conjunctivae normal, anicteric sclerae Neck: trachea midline, no thyromegaly Respiratory: normal respiratory effort, lungs clear to auscultation Cardiovascular: RRR, no murmur, no edema Gastrointestinal (Abdomen): normal bowel sounds, soft, nontender, no hepatosplenomegaly Skin: the wound VAC on no significant redness around the wound, Neurologic: patellar DTR's 2+ bilat, sensation intact Psychiatric: Orientation: alert Results & Data ([facility]) Vital Signs (Past 12 Hours) Vital Signs Temp Pulse Pulse Resp BP BP Pulse Ox 06/09/21 14:30 37.1 C 93 H 18 111/68 95 06/09/21 07:26 36.9 C 80 18 116/70 97 Laboratory Results Abnormal lab results 06/08/21 06/08/21 06/09/21 Range/Units 17:01 20:39 08:02 POC Glucose 129 H 124 H 158 H (70-99) mg/dl 06/09/21 Range/Units 11:58 POC Glucose 209 H (70-99) mg/dl
[2021-06-09] MEDS: CARBOHYDRATES FOR HYPOGLYCEMIA PO PRN (17:16)
[2021-06-09] MEDS: cefTRIAXone SODIUM 2,000 MG in DEXTROSE 5% 50 ML IV SCH (17:20)
[2021-06-09] MEDS: risperiDONE 1 MG/ML SOLUTION PO SCH (21:11)
[2021-06-10] MEDS: CEROVITE ADV FORMULA TAB PO SCH (08:29)
[2021-06-10] MEDS: ZINC SULFATE 220 MG CAPSULE PO SCH (08:29)
[2021-06-10] MEDS: DICLOFENAC SOD 1% GEL 100 GM TUBE EXT SCH ×3 (08:30→21:33)
[2021-06-10] MEDS: CARBIDOPA/LEVODOPA 25/100MG TAB PO SCH ×4 (08:30→21:35)
[2021-06-10] MEDS: DOCUSATE SODIUM/SENNA 50/8.6MG TAB PO SCH (08:31)
[2021-06-10] MEDS: ENOXAPARIN INJ 30 MG/0.3 ML SYR SQ SCH (08:31)
[2021-06-10] MEDS: ADVANCED PROBIOTIC 1250 MG CAPSULE PO SCH (08:31)
[2021-06-10] MEDS: metFORMIN HCL 500 MG TAB PO SCH ×2 (08:32→17:18)
[2021-06-10] MEDS: ASCORBIC ACID 500 MG TAB PO SCH (08:32)
[2021-06-10] MEDS: glyBURIDE 5 MG TAB PO SCH ×2 (08:32→17:18)
[2021-06-10] MEDS: metroNIDAZOLE 500 MG TAB PO SCH ×3 (08:33→21:33)
[2021-06-10] MEDS: THIAMINE HCL 100 MG TAB PO SCH ×2 (08:34→21:34)
[2021-06-10] MEDS: INSULIN GLARGINE SOLOSTAR 100 UNITS/ML 3 ML PEN SC SCH (08:34)
[2021-06-10] MEDS: POLYETHYLENE (MIRALAX) 17 GM PACK PO SCH (08:34)
--- NOTE | 2021-06-10 08:43 | Hospitalist Progress Note ---
Date of Service June 10, 2021 Assessment & Plan (1) Sacral decubitus ulcer, stage IV: Plan: Surgery was consulted on 05/22 at the request of Wound Care as her sacral ulcer was not responding to conservative care. - Debrided by Dr. Simon on 05/22/2021 - Wound culture sent at that time. Of note, she has exposed bone from the debridement, so she de facto has osteomyelitis. - Wound culture showing Bacteroides and anaerobic gram-positive bacilli - Consulted ID -> Plan for 6 weeks of abx therapy. - continue wound care as guided by general surgery.--> wound vac in place - plan for 6 weeks of Rocephin/Flagyl (07/09/21) - PICC line in place. - Repeat debridement of wound site 06/10/21 - Wound care saw 06/10, wound VAC in place. Continue to follow for leaks, if VAC fails all pieces of VAC to be removed and irrigated with saline and lightly filled with Aquacel. Placement remains pending, additional information sent to [place] 06/10 for review (2) Metabolic encephalopathy: Plan: suspect due to COVID encephalopathy, hospital psychosis, UTI, etc. - significantly improved and likely near baseline -MRI brain without acute or subacute CVA; no ICH, tumor, etc. recent b12/tsh wnl -Daughter she states that several months ago the patient was a/o x 3 and living independently . -Continue empiric thiamine 200mg BID x 1 month - remains stable at this time and answering questions appropriately - Continue with risperidone 0.5 mg PO HS (started by prior attending and doing well on this) Continue with current management and monitoring. (3) Pneumonia due to COVID-19 virus: Plan: -clinically resolved - NC O2 weaned off 05/03/21 and pt is stable on RA since with normal oxygen saturation - s/p 10 day course of dexamethasone - no symptoms at this time *Received J&J COVID vaccine 05/19/21 as needed for placement. (4) Dizziness: Plan: Admitted when found down at home, + COVID as above and completed treatment Question of syncope at home, and + murmur on examination without ECHO having been performed as ordered on admission No focal deficit concerning for CVA, sounds more like orthostatic hypotension vs BPPV --> given 500cc NSS and no further dizziness reported(orthostasis common in Parkinson pts). Unfortunately had fall as bed alarm not turned on evening 05/20--> CT head negative as above ECHO without significant valvular dysfunction. asymptomatic at this time. Meclizine available prn Continue with current management and monitoring. (5) Parkinsons disease: Plan: Stable. Continue [employer] Carbidopa-Levadopa MRI brain neg for acute findings risperdal low dose 0.5mg HS - has helped delirium. Continue with current management and monitoring. (6) UTI (urinary tract infection): Plan: resolved. s/p levaquin. (7) Dysphagia: Plan: advanced to regular, tolerating well Continue with current management and monitoring. (8) Hypernatremia: Plan: resolved. (9) Diabetes: Plan: controlled. Last A1C 6.5. continue with metformin and glyburide. Patient Lantus decreased from 8 units to 4 units 1/12 for overnight hypoglycemia, continue to follow with SSI pt is eating well. Continue with current management and monitoring. (10) Rhabdomyolysis: Plan: resolved. pt was found on the floor in her home prior to the admission ==>likely to be the cause. (COVID also may have contributed). (11) Pressure injury of back, stage 2: Plan: Present on admission secondary to patient being found down at home Optifoams, frequent turning, etc. --> is S/P drbridement and wound vac in place. wound recommendations in place for discharge will need outpatient F/U ([phone]). cont MVI/vit C/zinc/thiamine. waffle cushion for comfort, pain control ordered --> reports improvement in discomfort and no need for medication outside of occasional tylenol See additional wound care notes above (12) Chronic kidney disease, stage 3a: Plan: baseline CrCl 50s stable. Continue with current management and monitoring. obtain BW in 2 weeks. (13) Antibiotic-associated diarrhea: Plan: Frequent loose stools which is likely related to antibiotic associated diarrhea Continue probiotic and yogurt with live cultures Not highly suspicious for C. difficile at this time in the setting of antibiotics (especially on Flagyl). (14) Need for case management follow-up: Plan: Pt will need SNF for inpatient PT/OT, wound care and IV abx therapy. She is medically/hemodynamically stable for discharge. Case management is on board. They did get a call from [facility] on 06/03/21 but unfortunately there are no beds yet available 06/10 received a call from Osorio Butterfield requesting updated PT/OT and notes, information provided by case management. Would require coordination to [place] wound center rather than our wound care center. Case management continuing to facilitate, appreciate assistance.. Admission and Anticipated Discharge Date Admission Date: April 18, 2021 Physical Exam Physical Exam: General: Oriented to name, place, and month. Thin. Pleasant, no distress. Cooperative. HEENT: Atraumatic, normocephalic. Visual acuity and hearing grossly intact Pulm: good air movement CTAB A&P. -wheezes, -rales, -rhonchi. Symmetrical chest rise. No increase work of breathing. No respiratory distress. Cardiac: RRR, -mrg. Radial pulses intact and symmetrical. Abdominal: Nontender, nondistended, soft. BS present. Sacrum: VAC in place, C/D/I. No surrounding erythema. Well-healing. No air leak. Results & Data Results & Data ([facility]) Vital Signs (Past 12 Hours) Vital Signs Temp Pulse Resp BP BP Pulse Ox 06/10/21 07:05 37.0 C 91 H 18 111/70 91 06/09/21 21:46 36.8 C 76 16 129/79 98 PG Care Time/CCT Total # of Minutes Spent Total Time Spent with Patient: Total time spent is greater than 50% in coordination of care (as documented) at patient's floor/unit and/or counseling patient: Coding Level of Care Code 41111 Subseq Hosp Care Lvl 2 Diagnoses Sacral decubitus ulcer, stage IV L89.154 Metabolic encephalopathy G93.41 Pneumonia due to COVID-19 virus U07.1; J12.82 Dizziness R42 Parkinsons disease G20 UTI (urinary tract infection) N39.0 Dysphagia R13.10 Hypernatremia E87.0 Diabetes E11.9 Rhabdomyolysis M62.82 Rhabdomyolysis type: non-traumatic Pressure injury of back, stage 2 L89.102 Chronic kidney disease, stage 3a N18.31 Antibiotic-associated diarrhea K52.1; T36.95XA Need for case management follow-up Z09 (1) Rhabdomyolysis Rhabdomyolysis type: non-traumatic Qualified Code(s): M62.82 - Rhabdomyolysis
--- NOTE | 2021-06-10 12:18 | Surgery Progress Note ---
Date of Service June 10, 2021 Assessment & Plan (1) Sacral decubitus ulcer, stage IV: Plan: pt is a 76 year-old female who is asked for consult debridement sacral ulcer, IMP: sacral ulcer, Plan, I recommend to do debridement sacral ulcer at bedside, D/W benefits, risks and alternatives of the the procedure with pt and pt's daughter Aline( on phone), the risks - infection, bleeding, may need more procedure, they understood, pt's daughter gave the consent on the phone, I answered all questions, at bed side, after time out, apply betadine on wound, remove necrotic tissue, deep to close bone, minimal active bleeding after apply pressure the bleeding is stop, wound culture sent, apply bacitricin on wound cover 4X4 gouze, pt tolerated the procedure well, pt did not feel any pain, the nurse at bedside assist me, wound care nurse change dressing once a day, will F/U 05/27/2021 1:23PM pt is doing better, no fever, normal WBC, wound culture G+ Cocci continue treatment, dressing change by wound care nurse once a day, sign off today, please call with questions, thanks, 06/09/2021 4:08PM pt is stable, no fever, continue antibiotic treatment, continue Wound VAC, any question with bone infection, pt should have MRI to to R/O osteomyelitis, if positive -should consult orthopedic surgery, pt will Follow up [facility] wound care center, once pt is discharged to half-way, F/U prn, 06/10/2021 12:10PM, Dr. Simon, base on necrotic tissue at sacral wound, I recommend to do debridement sacral wound at bed side, I called pt's son Bertram( [phone])D/W benefits, risks and alternatives of the the procedure, the risks - infection, bleeding, may need mor e surgery, he understood, he gave consent on the phone, I also talk to pt , about the procedure, pt understood, she agrees with the procedure, I answered all questions, at pt's bedside, I did debridement sacral wound, remove some necrotic tissue, pt tolerated the procedure well, wound care nurse will place back on wound vac, Thanks, sign off today, please call with questions, Thanks, Admission and Anticipated Discharge Date Admission Date: April 18, 2021 Supervising Physician Co-Signing Physician Notes chart reviewed, case d/w J Denisse PAC. agree w above Subjective Seen at bedside this morning. Pt reports no pain at rest, some pain with moving unchanged from prior. Eating well. No nausea/vomiting/. No shortness of breath, chest pain, chest pressure, fever, chills, sweats overnight. Pt in anticipation of wound vac change today. No other questions or concerns at bedside exam. P\ 06/09/2021, 4:05PM, DR. Simon F/Anila sacral ulcer, pt is stable, no fever, the wound vac is on, wound culture reviewed, 06/10/2021 12:06PM Dr. Simon F/Anila sacral ulcer, pt is stable, no fever, Review of Systems Constitutional: as per Subjective / HPI Eyes: as per Subjective / HPI Respiratory: pneumonia-COVID Cardiovascular: Additional Comments: HLD Gastrointestinal: dysphagia Genitourinary: urinary retention, chronic kidney disease stage 3a Musculoskeletal: pressure injury of back Neurologic: Parkinsons disease, metabolic encephalopathy Psychiatric: as per Subjective / HPI Endocrine: DM Hematologic / Lymphatic: as per Subjective / HPI Physical Exam Eyes: PERRL, conjunctivae normal, anicteric sclerae Neck: trachea midline, no thyromegaly Respiratory: normal respiratory effort, lungs clear to auscultation Cardiovascular: RRR, no murmur, no edema Gastrointestinal (Abdomen): normal bowel sounds, soft, nontender, no hepatosplenomegaly Skin: some necrotic tissue on sacral wound, the wound is dry, deep to close bone, Neurologic: patellar DTR's 2+ bilat, sensation intact Psychiatric: Orientation: alert Results & Data ([facility]) Vital Signs (Past 12 Hours) Vital Signs Temp Pulse Resp BP Pulse Ox 06/10/21 07:05 37.0 C 91 H 18 111/70 91 Laboratory Results Abnormal lab results 06/10/21 06/10/21 Range/Units 07:57 12:03 POC Glucose 151 H 171 H (70-99) mg/dl
--- NOTE | 2021-06-10 13:03 | Operative Report (OR) ---
PREOPERATIVE DIAGNOSIS: Chronic sacral wound. POSTOPERATIVE DIAGNOSIS: Chronic sacral wound. OPERATION: Debridement of sacral wound. SURGEON: Joshua Simon MD ANESTHESIA: None. ESTIMATED BLOOD LOSS: None. FINDINGS: Necrotic tissue on the sacral wound, the necrosis tissue was removed COMPLICATIONS: None. INDICATIONS FOR THE PROCEDURE: This is a 76-year-old female who has chronic sacral wound and the pat ient has necrosis tissue on the wound, needed debridement. I recommended to do the debridement of th e sacral wound at the bedside. I did talk to the patient and the patient's son on the phone about th e benefits, the risks, and alternate procedures. I indicated the risks may include, but not limited to, such as bleeding, infection, may need more procedure. They understand. The patient's son is Bertram nolen, who gave the consent on the phone. I answered all questions. DETAILS OF PROCEDURE: At the bedside, we put the patient in the left side decubitus position and the sacral wound was prepped and draped by using the Betadine and then we used sharp scissors to remove the necrosis tissue in one piece. Rechecked, no active bleeding, and all the wound was clean, dry an d no drainage. The wound is looking better than last time. So we put back the wound dressing and oth erwise the patient tolerated the procedure well. Job ID: [id number]
[2021-06-10] MEDS: cefTRIAXone SODIUM 2,000 MG in DEXTROSE 5% 50 ML IV SCH (17:29)
[2021-06-10] MEDS: CARBOHYDRATES FOR HYPOGLYCEMIA PO PRN (20:46)
[2021-06-10] MEDS: risperiDONE 1 MG/ML SOLUTION PO SCH (21:35)
[2021-06-11] MEDS: glyBURIDE 5 MG TAB PO SCH ×2 (08:23→17:37)
[2021-06-11] MEDS: ASCORBIC ACID 500 MG TAB PO SCH (08:24)
[2021-06-11] MEDS: CEROVITE ADV FORMULA TAB PO SCH (08:24)
[2021-06-11] MEDS: CARBIDOPA/LEVODOPA 25/100MG TAB PO SCH ×4 (08:25→21:11)
[2021-06-11] MEDS: DOCUSATE SODIUM/SENNA 50/8.6MG TAB PO SCH (08:25)
[2021-06-11] MEDS: ENOXAPARIN INJ 30 MG/0.3 ML SYR SQ SCH (08:25)
[2021-06-11] MEDS: DICLOFENAC SOD 1% GEL 100 GM TUBE EXT SCH ×3 (08:25→21:12)
[2021-06-11] MEDS: metroNIDAZOLE 500 MG TAB PO SCH ×3 (08:26→21:12)
[2021-06-11] MEDS: ADVANCED PROBIOTIC 1250 MG CAPSULE PO SCH (08:26)
[2021-06-11] MEDS: metFORMIN HCL 500 MG TAB PO SCH ×2 (08:26→17:37)
[2021-06-11] MEDS: POLYETHYLENE (MIRALAX) 17 GM PACK PO SCH (08:27)
[2021-06-11] MEDS: ZINC SULFATE 220 MG CAPSULE PO SCH (08:27)
[2021-06-11] MEDS: THIAMINE HCL 100 MG TAB PO SCH ×2 (08:27→21:11)
[2021-06-11] MEDS: INSULIN GLARGINE SOLOSTAR 100 UNITS/ML 3 ML PEN SC SCH (08:32)
--- NOTE | 2021-06-11 12:36 | Hospitalist Progress Note ---
Date of Service June 11, 2021 Assessment & Plan (1) Sacral decubitus ulcer, stage IV: Plan: Surgery was consulted on 05/22 at the request of Wound Care as her sacral ulcer was not responding to conservative care. - Debrided by Dr. Simon on 05/22/2021 - Wound culture sent at that time. Of note, she has exposed bone from the debridement, so she de facto has osteomyelitis. - Wound culture showing Bacteroides and anaerobic gram-positive bacilli - Consulted ID -> Plan for 6 weeks of abx therapy. - continue wound care as guided by general surgery.--> wound vac in place - plan for 6 weeks of Rocephin/Flagyl (07/09/21) - PICC line in place. - Repeat debridement of wound site 06/10/21 - Wound care saw 06/10, wound VAC in place. Continue to follow for leaks, if VAC fails all pieces of VAC to be removed and irrigated with saline and lightly filled with Aquacel. Placement remains pending, additional information sent to [place] 06/10 for review 06/11: Sleeping at exam, stable. Hypoglycemia in afternoon. Glyburide held. 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 - significantly improved and likely near baseline -MRI brain without acute or subacute CVA; no ICH, tumor, etc. recent b12/tsh wnl -Daughter she states that several months ago the patient was a/o x 3 and living independently . -Continue empiric thiamine 200mg BID x 1 month - remains stable at this time and answering questions appropriately - Continue with risperidone 0.5 mg PO HS (started by prior attending and doing well on this) Continue with current management and monitoring. (3) Pneumonia due to COVID-19 virus: Plan: -clinically resolved - NC O2 weaned off 05/03/21 and pt is stable on RA since with normal oxygen saturation - s/p 10 day course of dexamethasone - no symptoms at this time *Received J&J COVID vaccine 05/19/21 as needed for placement. (4) Dizziness: Plan: Admitted when found down at home, + COVID as above and completed treatment Question of syncope at home, and + murmur on examination without ECHO having been performed as ordered on admission No focal deficit concerning for CVA, sounds more like orthostatic hypotension vs BPPV --> given 500cc NSS and no further dizziness reported(orthostasis common in Parkinson pts). Unfortunately had fall as bed alarm not turned on evening 05/20--> CT head negative as above ECHO without significant valvular dysfunction. asymptomatic at this time. Meclizine available prn Continue with current management and monitoring. (5) Parkinsons disease: Plan: Stable. Continue [employer] Carbidopa-Levadopa MRI brain neg for acute findings risperdal low dose 0.5mg HS - has helped delirium. Continue with current management and monitoring. (6) UTI (urinary tract infection): Plan: resolved. s/p levaquin. (7) Dysphagia: Plan: advanced to regular, tolerating well Continue with current management and monitoring. (8) Hypernatremia: Plan: resolved. (9) Diabetes: Plan: controlled. Last A1C 6.5. continue with metformin and glyburide. Patient Lantus decreased from 8 units to 4 units 1/12 for overnight hypoglycemia, continue to follow with SSI pt is eating well. Continue with current management and monitoring. (10) Rhabdomyolysis: Plan: resolved. pt was found on the floor in her home prior to the admission ==>likely to be the cause. (COVID also may have contributed). (11) Pressure injury of back, stage 2: Plan: Present on admission secondary to patient being found down at home Optifoams, frequent turning, etc. --> is S/P drbridement and wound vac in place. wound recommendations in place for discharge will need outpatient F/U ([phone]). cont MVI/vit C/zinc/thiamine. waffle cushion for comfort, pain control ordered --> reports improvement in discomfort and no need for medication outside of occasional tylenol See additional wound care notes above (12) Chronic kidney disease, stage 3a: Plan: baseline CrCl 50s stable. Continue with current management and monitoring. obtain BW in 2 weeks. (13) Antibiotic-associated diarrhea: Plan: Frequent loose stools which is likely related to antibiotic associated diarrhea Continue probiotic and yogurt with live cultures Not highly suspicious for C. difficile at this time in the setting of antibiotics (especially on Flagyl). (14) Need for case management follow-up: Plan: Pt will need SNF for inpatient PT/OT, wound care and IV abx therapy. She is medically/hemodynamically stable for discharge. Case management is on board. They did get a call from [facility] on 06/03/21 but unfortunately there are no beds yet available 06/10 received a call from Osorio Butterfield requesting updated PT/OT and notes, information provided by case management. Would require coordination to [place] wound center rather than our wound care center. Case management continuing to facilitate, appreciate assistance.. Admission and Anticipated Discharge Date Admission Date: April 18, 2021 Subjective Sleeping in bedside chair resting on bedside table at time of visit. Awakens, pleasant, sleepyeasily following exam. Denies pain, denies new symptoms at bedside. Falls back asleep following exam. Review of Systems Review of Systems: All systems reviewed & are unremarkable except as noted in Subjective Physical Exam Physical Exam: General: Somnolent, easily oriented. Thin. Pleasant, no distress. Cooperative. HEENT: Atraumatic, normocephalic. Visual acuity and hearing grossly intact Pulm: good air movement CTAB A&P. -wheezes, -rales, -rhonchi. Symmetrical chest rise. No increase work of breathing. No respiratory distress. Cardiac: RRR, -mrg. Radial pulses intact and symmetrical. Abdominal: Nontender, nondistended, soft. BS present. Sacrum: VAC in place, C/D/I. No surrounding erythema. Well-healing. No air le ak. Results & Data Results & Data ([facility]) Vital Signs (Past 12 Hours) Vital Signs Temp Pulse Resp BP Pulse Ox 06/11/21 07:32 36.7 C 86 16 117/72 95 PG Care Time/CCT Total # of Minutes Spent Total Time Spent with Patient: Total time spent is greater than 50% in coordination of care (as documented) at patient's floor/unit and/or counseling patient: Coding Level of Care Code 53465 Subseq Hosp Care Lvl 1 Diagnoses Sacral decubitus ulcer, stage IV L89.154 Metabolic encephalopathy G93.41 Pneumonia due to COVID-19 virus U07.1; J12.82 Dizziness R42 Parkinsons disease G20 UTI (urinary tract infection) N39.0 Dysphagia R13.10 Hypernatremia E87.0 Diabetes E11.9 Rhabdomyolysis M62.82 Rhabdomyolysis type: non-traumatic Pressure injury of back, stage 2 L89.102 Chronic kidney disease, stage 3a N18.31 Antibiotic-associated diarrhea K52.1; T36.95XA Need for case management follow-up Z09 (1) Rhabdomyolysis Rhabdomyolysis type: non-traumatic Qualified Code(s): M62.82 - Rhabdomyolysis
[2021-06-11] MEDS: CARBOHYDRATES FOR HYPOGLYCEMIA PO PRN (17:19)
[2021-06-11] MEDS: cefTRIAXone SODIUM 2,000 MG in DEXTROSE 5% 50 ML IV SCH (17:48)
[2021-06-11] MEDS: risperiDONE 1 MG/ML SOLUTION PO SCH (21:12)
[2021-06-12 06:13] LABS: Basophils # (auto) 0.02 K/uL (0-0.2); Basophils % (auto) 0.3 %; Eosinophils % (auto) 1.5 %; Hematocrit (blood only) 35.8 % (37-47); Hemoglobin 11.1 g/dL (12.0-16.0); Immature Granulocytes # (auto) 0.01 K/uL (0.00-0.02); Immature Granulocytes % (auto) 0.2 %; Lymphocytes % (auto) 27.3 %; Mean Corpuscular Hemoglobin 28.6 pg (25-34); Mean Corpuscular Volume 92.3 fL (80-100); Mean Platelet Volume 9.7 fL (7.4-10.4); Monocytes # (auto) 0.52 K/uL (0.11-0.59); Monocytes % (auto) 7.9 %; Neutrophils # (auto) 4.14 K/uL (1.4-6.5); Neutrophils % (auto) 62.8 %; Platelet Count 334 K/uL (130-400); RDW Coefficient of Variation 16.5 % (11.5-14.5); RDW Standard Deviation 55.8 fL (36.4-46.3); Red Blood Count 3.88 M/uL (4.2-5.4); White Blood Count 6.59 K/uL (4.8-10.8)
[2021-06-12 07:16] LABS: BUN Creatinine Ratio 31.8 (10-20); Calcium 8.8 mg/dl (8.5-10.1); Creatinine Clr Calc Pharmacy 49.1 ml/min; Est GFR (African American) 76.1 ml/min; Est GFR (Non-African American) 65.6 ml/min; Potassium 4.1 mmol/L (3.5-5.1)
[2021-06-12] MEDS: DOCUSATE SODIUM/SENNA 50/8.6MG TAB PO SCH (08:33)
[2021-06-12] MEDS: DICLOFENAC SOD 1% GEL 100 GM TUBE EXT SCH ×3 (08:34→20:50)
[2021-06-12] MEDS: POLYETHYLENE (MIRALAX) 17 GM PACK PO SCH (08:34)
[2021-06-12] MEDS: ENOXAPARIN INJ 30 MG/0.3 ML SYR SQ SCH (08:34)
[2021-06-12] MEDS: ASCORBIC ACID 500 MG TAB PO SCH (08:35)
[2021-06-12] MEDS: CARBIDOPA/LEVODOPA 25/100MG TAB PO SCH ×4 (08:35→20:50)
[2021-06-12] MEDS: metFORMIN HCL 500 MG TAB PO SCH ×2 (08:35→17:09)
[2021-06-12] MEDS: metroNIDAZOLE 500 MG TAB PO SCH ×3 (08:36→20:49)
[2021-06-12] MEDS: THIAMINE HCL 100 MG TAB PO SCH ×2 (08:36→20:49)
[2021-06-12] MEDS: ZINC SULFATE 220 MG CAPSULE PO SCH (08:36)
[2021-06-12] MEDS: ADVANCED PROBIOTIC 1250 MG CAPSULE PO SCH (08:36)
[2021-06-12] MEDS: INSULIN GLARGINE SOLOSTAR 100 UNITS/ML 3 ML PEN SC SCH (08:36)
[2021-06-12] MEDS: CEROVITE ADV FORMULA TAB PO SCH (08:36)
[2021-06-12] MEDS ORDERED: PHARMACY GLYCEMIC MGMT CONSULT PRN (11:41)
--- NOTE | 2021-06-12 12:03 | Hospitalist Progress Note ---
Date of Service June 12, 2021 Assessment & Plan (1) Sacral decubitus ulcer, stage IV: Plan: Surgery was consulted on 05/22 at the request of Wound Care as her sacral ulcer was not responding to conservative care. - Debrided by Dr. Simon on 05/22/2021 - Wound culture sent at that time. Of note, she has exposed bone from the debridement, so she de facto has osteomyelitis. - Wound culture showing Bacteroides and anaerobic gram-positive bacilli - Consulted ID -> Plan for 6 weeks of abx therapy. - continue wound care as guided by general surgery.--> wound vac in place - plan for 6 weeks of Rocephin/Flagyl (07/09/21) - PICC line in place. - Repeat debridement of wound site 06/10/21 - Wound care saw 06/10, wound VAC in place. Continue to follow for leaks, if VAC fails all pieces of VAC to be removed and irrigated with saline and lightly filled with Aquacel. Placement remains pending, additional information sent to [place] 06/10 for review 06/11: Sleeping at exam, stable. Hypoglycemia in afternoon. Glyburide held. 06/12: No acute distress, remains well. Blood sugars remain labile, hyperglycemic after holding glyburide. Due to labile blood sugars with highs and lows during admission pharmacy consulted for glycemic review. 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 - significantly improved and likely near baseline -MRI brain without acute or subacute CVA; no ICH, tumor, etc. recent b12/tsh wnl -Daughter she states that several months ago the patient was a/o x 3 and living independently . -Continue empiric thiamine 200mg BID x 1 month - remains stable at this time and answering questions appropriately - Continue with risperidone 0.5 mg PO HS (started by prior attending and doing well on this) Continue with current management and monitoring. (3) Pneumonia due to COVID-19 virus: Plan: -clinically resolved - NC O2 weaned off 05/03/21 and pt is stable on RA since with normal oxygen saturation - s/p 10 day course of dexamethasone - no symptoms at this time *Received J&J COVID vaccine 05/19/21 as needed for placement. (4) Dizziness: Plan: Admitted when found down at home, + COVID as above and completed treatment Question of syncope at home, and + murmur on examination without ECHO having been performed as ordered on admission No focal deficit concerning for CVA, sounds more like orthostatic hypotension vs BPPV --> given 500cc NSS and no further dizziness reported(orthostasis common in Parkinson pts). Unfortunately had fall as bed alarm not turned on evening 05/20--> CT head negative as above ECHO without significant valvular dysfunction. asymptomatic at this time. Meclizine available prn Continue with current management and monitoring. (5) Parkinsons disease: Plan: Stable. Continue [employer] Carbidopa-Levadopa MRI brain neg for acute findings risperdal low dose 0.5mg HS - has helped delirium. Continue with current management and monitoring. (6) UTI (urinary tract infection): Plan: resolved. s/p levaquin. (7) Dysphagia: Plan: advanced to regular, tolerating well Continue with current management and monitoring. (8) Hypernatremia: Plan: resolved. (9) Diabetes: Plan: controlled. Last A1C 6.5. continue with metformin and glyburide. Patient Lantus decreased from 8 units to 4 units 06/04 for overnight hypoglycemia, continue to follow with SSI pt is eating well. Continue with current management and monitoring. (10) Rhabdomyolysis: Plan: resolved. pt was found on the floor in her home prior to the admission ==>likely to be the cause. (COVID also may have contributed). (11) Pressure injury of back, stage 2: Plan: Present on admission secondary to patient being found down at home Optifoams, frequent turning, etc. --> is S/P drbridement and wound vac in place. wound recommendations in place for discharge will need outpatient F/U ([phone]). cont MVI/vit C/zinc/thiamine. waffle cushion for comfort, pain control ordered --> reports improvement in discomfort and no need for medication outside of occasional tylenol See additional wound care notes above (12) Chronic kidney disease, stage 3a: Plan: baseline CrCl 50s stable. Continue with current management and monitoring. obtain BW in 2 weeks. (13) Antibiotic-associated diarrhea: Plan: Frequent loose stools which is likely related to antibiotic associated diarrhea Continue probiotic and yogurt with live cultures Not highly suspicious for C. difficile at this time in the setting of antibiotics (especially on Flagyl). (14) Need for case management follow-up: Plan: Pt will need SNF for inpatient PT/OT, wound care and IV abx therapy. She is medically/hemodynamically stable for discharge. Case management is on board. They did get a call from [facility] on 06/03/21 but unfortunately there are no beds yet available 06/10 received a call from [facility] requesting updated PT/OT and notes, information provided by case management. Would require coordination to [place] wound center rather than our wound care center. Case management continuing to facilitate, appreciate assistance.. Admission and Anticipated Discharge Date Admission Date: April 18, 2021 Subjective Seen at bedside, no acute distress. Reports she feels well, no change today. She is not having any pain from her back. Reports she was a little sleepy this morning, otherwise okay "not much going on". No questions or concerns at time of visit, no fevers, chills. Was not aware of her glycemic highs/lows. No nausea/vomiting. No lightheadedness/dizziness. Review of Systems Review of Systems: All systems reviewed & are unremarkable except as noted in Subjective Physical Exam Physical Exam: General: Alert, oriented to name place and month todya. NAD. HEENT: Atraumatic, normocephalic. Visual acuity and hearing grossly intact Pulm: good air movement CTAB A&P. -wheezes, -rales, -rhonchi. Symmetrical chest rise. No increase work of breathing. No respiratory distress. Cardiac: RRR, -mrg. Radial pulses intact and symmetrical. Abdominal: Nontender, nondistended, soft. BS present. Sacrum: VAC in place, C/D/I. No leak. Well approximated to wound edges. No surrounding erythema. No air leak. Results & Data Results & Data ([facility]) Vital Signs (Past 12 Hours) Vital Signs Temp Pulse Resp BP Pulse Ox 06/12/21 07:16 36.8 C 77 16 115/77 98 PG Care Time/CCT Total # of Minutes Spent Total Time Spent with Patient: Total time spent is greater than 50% in coordination of care (as documented) at patient's floor/unit and/or counseling patient: Coding Level of Care Code 82063 Subseq Hosp Care Lvl 1 Diagnoses Sacral decubitus ulcer, stage IV L89.154 Metabolic encephalopathy G93.41 Pneumonia due to COVID-19 virus U07.1; J12.82 Dizziness R42 Parkinsons disease G20 UTI (urinary tract infection) N39.0 Dysphagia R13.10 Hypernatremia E87.0 Diabetes E11.9 Rhabdomyolysis M62.82 Rhabdomyolysis type: non-traumatic Pressure injury of back, stage 2 L89.102 Chronic kidney disease, stage 3a N18.31 Antibiotic-associated diarrhea K52.1; T36.95XA Need for case management follow-up Z09 (1) Rhabdomyolysis Rhabdomyolysis type: non-traumatic Qualified Code(s): M62.82 - Rhabdomyolysis
[2021-06-12] MEDS: INSULIN ASPART PER UNIT SC SCH ×3 (12:21→21:29)
--- NOTE | 2021-06-12 13:49 | Pharmacy Report ---
Pharmacy Glycemic Short Note 2 - Date of Service June 12, 2021 - Glycemic Short BSG Results (Last 24 hours): 06/11/21 06/11/21 06/11/21 17:04 17:07 17:31 Glucose POC Glucose 64 L* 69 L* 81 06/11/21 06/11/21 06/11/21 20:30 20:32 20:37 Glucose POC Glucose 323 H* 135 H 143 H 06/11/21 06/12/21 06/12/21 20:46 05:41 08:07 Glucose 134 H 162 H POC Glucose 169 H 06/12/21 12:04 Glucose POC Glucose 201 H OUTPATIENT ANTIDIABETIC REGIMEN: * Metformin 500 mg PO BID with meals * Glyburide 5 mg PO BID with meals ASSESSMENT: * Patient admitted for Rhabdomyolysis and Covid Pneumonia in 03/2021. She also has sacral decubitus ulcer with osteomyelitis that requires 6 weeks of antibiotics. Currently on IV Rocephin and PO Flagyl. Awaiting SNF placement. * History of Type 2 diabetes managed at home on oral Metformin and Glyburide. Most recently this was resumed in house and her Novolog discontinued. She has been receiving Lantus 4 units SQ QAM (dosing titrated down since admission). * Blood sugars have been labile. Glyburide held yesterday since patient had a low BSG of 64 mg/dl at dinner time. Metformin dose at dinner was held yesterday then continued BID today. * Pharmacy consulted for glycemic management today due to recent highs and lows in BSGs. * Continued basal Lantus 4 units QAM. Novolog ordered with lunch based on weight and stress looser than 2. If BSGs trend low then plan to loosen Novolog carb ratio further. PLAN FOR INPATIENT GLYCEMIC CONTROL: * Hold Glyburide. * Continue oral Metformin 500 mg BID with meals * Basal insulin * Lantus 4 units SQ QAM * Bolus insulin * NovoLog per scale ACHS or Q6hrs while NPO * Goal Range: Low 120 mg/dL - High 150 mg/dL * Correction Factor: 40 mg/dL/unit * Nutritional / Prandial insulin per carb ratio of 1 unit per 15 grams CHO consumed PLAN FOR DISCHARGE: * HbA1c = 6.5% on 05/30/21 * Above A1c indicates patient's diabetes is well controlled given her age and co-morbidities. * If patient is not reporting hypoglycemia at home, then recommend continue home meds: Metformin 500 mg BID and Glyburide 5 mg PO BID with meals.
[2021-06-12] MEDS: cefTRIAXone SODIUM 2,000 MG in DEXTROSE 5% 50 ML IV SCH (17:08)
[2021-06-12] MEDS: risperiDONE 1 MG/ML SOLUTION PO SCH (20:49)
[2021-06-13] MEDS: POLYETHYLENE (MIRALAX) 17 GM PACK PO SCH (08:56)
[2021-06-13] MEDS: DOCUSATE SODIUM/SENNA 50/8.6MG TAB PO SCH (08:56)
[2021-06-13] MEDS: DICLOFENAC SOD 1% GEL 100 GM TUBE EXT SCH ×3 (08:57→20:59)
[2021-06-13] MEDS: ASCORBIC ACID 500 MG TAB PO SCH (08:57)
[2021-06-13] MEDS: ENOXAPARIN INJ 30 MG/0.3 ML SYR SQ SCH (08:57)
[2021-06-13] MEDS: metFORMIN HCL 500 MG TAB PO SCH ×2 (08:57→17:34)
[2021-06-13] MEDS: metroNIDAZOLE 500 MG TAB PO SCH ×3 (08:58→20:58)
[2021-06-13] MEDS: ADVANCED PROBIOTIC 1250 MG CAPSULE PO SCH (08:58)
[2021-06-13] MEDS: CEROVITE ADV FORMULA TAB PO SCH (08:58)
[2021-06-13] MEDS: CARBIDOPA/LEVODOPA 25/100MG TAB PO SCH ×4 (08:58→20:59)
[2021-06-13] MEDS: THIAMINE HCL 100 MG TAB PO SCH ×2 (08:58→20:58)
[2021-06-13] MEDS: INSULIN ASPART PER UNIT SC SCH ×4 (08:59→21:00)
[2021-06-13] MEDS: ZINC SULFATE 220 MG CAPSULE PO SCH (08:59)
--- NOTE | 2021-06-13 13:05 | Hospitalist Progress Note ---
Date of Service June 13, 2021 Assessment & Plan (1) Sacral decubitus ulcer, stage IV: Plan: Surgery was consulted on 05/22 at the request of Wound Care as her sacral ulcer was not responding to conservative care. - Debrided by Dr. Simon on 05/22/2021 - Wound culture sent at that time. Of note, she has exposed bone from the debridement, so she de facto has osteomyelitis. - Wound culture showing Bacteroides and anaerobic gram-positive bacilli - Consulted ID -> Plan for 6 weeks of abx therapy. - continue wound care as guided by general surgery.--> wound vac in place - plan for 6 weeks of Rocephin/Flagyl (07/09/21) - PICC line in place. - Repeat debridement of wound site 06/10/21 - Wound care saw 06/10, wound VAC in place. Continue to follow for leaks, if VAC fails all pieces of VAC to be removed and irrigated with saline and lightly filled with Aquacel. Placement remains pending, additional information sent to [place] 06/10 for review 06/11: Sleeping at exam, stable. Hypoglycemia in afternoon. Glyburide held. 06/12: No acute distress, remains well. Blood sugars remain labile, hyperglycemic after holding glyburide. Due to labile blood sugars with highs and lows during admission pharmacy consulted for glycemic review. - 06/13: Reasonable glycemic control today. Patient with some delirium in the morning per nursing staff. At time of bedside assessment orients easily and is oriented to name, place, and month. Is able to express why she is in the hospital. At time of assessment she does have capacity to make decisions. Due to where she is waiting placement, no questions or concerns. She notes that if she were unable to make decisions she would want her son to be her decision- maker. No additional questions at time of bedside visit. Discussed case with case management, placement pending (2) Metabolic encephalopathy: Plan: suspect due to COVID encephalopathy, hospital psychosis, UTI, etc. - significantly improved and likely near baseline -MRI brain without acute or subacute CVA; no ICH, tumor, etc. recent b12/tsh wnl -Daughter she states that several months ago the patient was a/o x 3 and living independently . -Continue empiric thiamine 200mg BID x 1 month - remains stable at this time and answering questions appropriately - Continue with risperidone 0.5 mg PO HS (started by prior attending and doing well on this) -Continue current management Once out of hospital in and home environment and at lower risk for delirium can consider outpatient neurocognitive evaluation, adjunct dementia agents if appropriate at that time (3) Pneumonia due to COVID-19 virus: Plan: -clinically resolved - NC O2 weaned off 05/03/21 and pt is stable on RA since with normal oxygen saturation - s/p 10 day course of dexamethasone - no symptoms at this time *Received J&J COVID vaccine 05/19/21 as needed for placement. (4) Dizziness: Plan: Admitted when found down at home, + COVID as above and completed treatment Question of syncope at home, and + murmur on examination without ECHO having been performed as ordered on admission No focal deficit concerning for CVA, sounds more like orthostatic hypotension vs BPPV --> given 500cc NSS and no further dizziness reported(orthostasis common in Parkinson pts). Unfortunately had fall as bed alarm not turned on evening 05/20--> CT head negative as above ECHO without significant valvular dysfunction. asymptomatic at this time. Meclizine available prn Continue with current management and monitoring. (5) Parkinsons disease: Plan: Stable. 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 Continue with current management and monitoring. (6) UTI (urinary tract infection): Plan: resolved. s/p levaquin. (7) Dysphagia: Plan: advanced to regular, tolerating well Continue with current management and monitoring. (8) Hypernatremia: Plan: resolved. (9) Diabetes: Plan: controlled. Last A1C 6.5. Patient with some labile blood sugars, glyburide held. Pharmacy consult placed, insulin aspart and glargine continued today with adjusted doses. Pharmacy glycemic management on board given both hyper and hypoglycemia during admission (10) Rhabdomyolysis: Plan: resolved. pt was found on the floor in her home prior to the admission ==>likely to be the cause. (COVID also may have contributed). (11) Pressure injury of back, stage 2: Plan: Present on admission secondary to patient being found down at home Optifoams, frequent turning, etc. --> is S/P drbridement and wound vac in place. wound recommendations in place for discharge will need outpatient F/U ([phone]). cont MVI/vit C/zinc/thiamine. waffle cushion for comfort, Tylenol as needed at this time See additional wound care notes above (12) Chronic kidney disease, stage 3a: Plan: baseline CrCl 50s stable. Spot labs as needed Continue with current management and monitoring. obtain BW in 2 weeks. (13) Antibiotic-associated diarrhea: Plan: Frequent loose stools which is likely related to antibiotic associated diarrhea Continue probiotic and yogurt with live cultures Not highly suspicious for C. difficile at this time in the setting of antibiotics (especially on Flagyl). (14) Need for case management follow-up: Plan: Pt will need SNF for inpatient PT/OT, wound care and IV abx therapy. She is medically/hemodynamically stable for discharge. Case management is on board. They did get a call from [facility] on 06/03/21 but unfortunately there are no beds yet available 06/10 received a call from [facility] requesting updated PT/OT and notes, information provided by case management. Would require coordination to [place] wound center rather than our wound care center. Case management continuing to facilitate, appreciate assistance.. Admission and Anticipated Discharge Date Admission Date: April 18, 2021 Subjective Has examined the bedside this morning. No overnight events. Was somewhat disoriented this morning after waking up per nursing staff. At time of bedside assessment she is alert, oriented to name, place, and month. She is able to express why she is in the hospital, that she has a back wound with wound VAC, and that she is awaiting placement but is also comfortable in the hospital at this time. Denies fever, chills, sweats, pain outside of her back, chest pain, chest pressure, nausea, diarrhea today. No additional questions or concerns. Review of Systems Review of Systems: All systems reviewed & are unremarkable except as noted in Subjective Physical Exam Physical Exam: General: Alert, oriented to name place and month today. She is able to express why she is in the hospital, that she has a back wound with wound VAC, and that she is awaiting placement but is also comfortable in the hospital at this time HEENT: Atraumatic, normocephalic. Visual acuity and hearing grossly intact Pulm: good air movement CTAB A&P. -wheezes, -rales, -rhonchi. Symmetrical chest rise. No increase work of breathing. No respiratory distress. Cardiac: RRR, -mrg. Radial pulses intact and symmetrical. Abdominal: Nontender, nondistended, soft. BS present. Sacrum: VAC in place, C/D/I. No leak. No surrounding erythema. Results & Data Results & Data ([facility]) Vital Signs (Past 12 Hours) Vital Signs Temp Pulse Resp BP Pulse Ox 06/13/21 08:22 36.5 C 100 H 16 117/78 95 PG Care Time/CCT Total # of Minutes Spent Total Time Spent with Patient: Total time spent is greater than 50% in coordination of care (as documented) at patient's floor/unit and/or counseling patient: Coding Level of Care Code 62251 Subseq Hosp Care Lvl 1 Diagnoses Sacral decubitus ulcer, stage IV L89.154 Metabolic encephalopathy G93.41 Pneumonia due to COVID-19 virus U07.1; J12.82 Dizziness R42 Parkinsons disease G20 UTI (urinary tract infection) N39.0 Dysphagia R13.10 Hypernatremia E87.0 Diabetes E11.9 Rhabdomyolysis M62.82 Rhabdomyolysis type: non-traumatic Pressure injury of back, stage 2 L89.102 Chronic kidney disease, stage 3a N18.31 Antibiotic-associated diarrhea K52.1; T36.95XA Need for case management follow-up Z09 (1) Rhabdomyolysis Rhabdomyolysis type: non-traumatic Qualified Code(s): M62.82 - Rhabdomyolysis
--- NOTE | 2021-06-13 14:03 | Pharmacy Report ---
Pharmacy Glycemic Short Note 2 - Date of Service June 13, 2021 - Glycemic Short BSG Results (Last 24 hours): 06/12/21 06/12/21 06/13/21 17:01 20:43 08:19 POC Glucose 80 128 H 186 H 06/13/21 12:08 POC Glucose 87 OUTPATIENT ANTIDIABETIC REGIMEN: * Metformin 500 mg PO BID with meals * Glyburide 5 mg PO BID with meals ASSESSMENT: 06/13: * Patient received total 12 units of insulin yesterday; 4 units of basal + 8 units bolus. * Fasting BSG = 186 mg/dl. Novolog CF/CR tightened this AM but loosened for the rest of the day. * Pre-lunch BSG = 87 mg/dl. * Basal Lantus dose discontinued today. Patient continues to be on Metformin BID with meals. Background 06/12/21 * Patient admitted for Rhabdomyolysis and Covid Pneumonia in 03/2021. She also has sacral decubitus ulcer with osteomyelitis that requires 6 weeks of antibiotics. Currently on IV Rocephin and PO Flagyl. Awaiting SNF placement. * History of Type 2 diabetes managed at home on oral Metformin and Glyburide. Mo st recently this was resumed in house and her Novolog discontinued. She has been receiving Lantus 4 units SQ QAM (dosing titrated down since admission). * Blood sugars have been labile. Glyburide held yesterday since patient had a low BSG of 64 mg/dl at dinner time. Metformin dose at dinner was held yesterday then continued BID today. * Pharmacy consulted for glycemic management today due to recent highs and lows in BSGs. * Continued basal Lantus 4 units QAM. Novolog ordered with lunch based on weight and stress looser than 2. If BSGs trend low then plan to loosen Novolog carb ratio further. PLAN FOR INPATIENT GLYCEMIC CONTROL: * Hold Glyburide. * Continue oral Metformin 500 mg BID with meals * Basal insulin * Lantus 4 units SQ QAM * Bolus insulin * NovoLog per scale ACHS or Q6hrs while NPO * Goal Range: Low 120 mg/dL - High 150 mg/dL * Correction Factor: 40 mg/dL/unit * Nutritional / Prandial insulin per carb ratio of 1 unit per 20 grams CHO consumed with breakfast and 1:25 gm CHO consumed with lunch, dinner and HS. PLAN FOR DISCHARGE: * HbA1c = 6.5% on 05/30/21 * Above A1c indicates patient's diabetes is well controlled given her age and co-morbidities. * If patient is not reporting hypoglycemia at home, then recommend continue home meds: Metformin 500 mg BID and Glyburide 5 mg PO BID with meals.
[2021-06-13] MEDS: cefTRIAXone SODIUM 2,000 MG in DEXTROSE 5% 50 ML IV SCH (17:39)
[2021-06-13] MEDS: risperiDONE 1 MG/ML SOLUTION PO SCH (20:58)
[2021-06-14] MEDS: THIAMINE HCL 100 MG TAB PO SCH ×2 (09:09→20:51)
[2021-06-14] MEDS: metroNIDAZOLE 500 MG TAB PO SCH ×3 (09:09→20:51)
[2021-06-14] MEDS: CARBIDOPA/LEVODOPA 25/100MG TAB PO SCH ×4 (09:09→20:52)
[2021-06-14] MEDS: ADVANCED PROBIOTIC 1250 MG CAPSULE PO SCH (09:10)
[2021-06-14] MEDS: ASCORBIC ACID 500 MG TAB PO SCH (09:10)
[2021-06-14] MEDS: metFORMIN HCL 500 MG TAB PO SCH ×2 (09:10→17:15)
[2021-06-14] MEDS: ZINC SULFATE 220 MG CAPSULE PO SCH (09:10)
[2021-06-14] MEDS: DOCUSATE SODIUM/SENNA 50/8.6MG TAB PO SCH (09:10)
[2021-06-14] MEDS: CEROVITE ADV FORMULA TAB PO SCH (09:10)
[2021-06-14] MEDS: POLYETHYLENE (MIRALAX) 17 GM PACK PO SCH (09:11)
[2021-06-14] MEDS: ENOXAPARIN INJ 30 MG/0.3 ML SYR SQ SCH (09:11)
[2021-06-14] MEDS: DICLOFENAC SOD 1% GEL 100 GM TUBE EXT SCH ×3 (09:11→20:51)
[2021-06-14] MEDS: INSULIN ASPART PER UNIT SC SCH ×4 (09:15→21:00)
--- NOTE | 2021-06-14 10:06 | Hospitalist Progress Note ---
Date of Service June 14, 2021 Assessment & Plan (1) Sacral decubitus ulcer, stage IV: Plan: Surgery was consulted on 05/22 at the request of Wound Care as her sacral ulcer was not responding to conservative care. - Debrided by Dr. Simon on 05/22/2021 - Wound culture sent at that time. Of note, she has exposed bone from the debridement, so she de facto has osteomyelitis. - Wound culture showing Bacteroides and anaerobic gram-positive bacilli - Consulted ID -> Plan for 6 weeks of abx therapy. - continue wound care as guided by general surgery.--> wound vac in place - plan for 6 weeks of Rocephin/Flagyl (07/09/21) - PICC line in place. - Repeat debridement of wound site 06/10/21 - Wound care saw 06/10, wound VAC in place. Continue to follow for leaks, if VAC fails all pieces of VAC to be removed and irrigated with saline and lightly filled with Aquacel. Placement remains pending, additional information sent to [place] 06/10 for review 06/11: Sleeping at exam, stable. Hypoglycemia in afternoon. Glyburide held. 06/12: No acute distress, remains well. Blood sugars remain labile, hyperglycemic after holding glyburide. Due to labile blood sugars with highs and lows during admission pharmacy consulted for glycemic review. - 06/13: Reasonable glycemic control . bedside assessment orients easily and is oriented to name, place, and month. Is able to express why she is in the hospital. At time of assessment she does have capacity to make decisions. 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 - significantly improved and likely near baseline -MRI brain without acute or subacute CVA; no ICH, tumor, etc. recent b12/tsh wnl -Daughter she states that several months ago the patient was a/o x 3 and living independently . -Continue empiric thiamine 200mg BID x 1 month - remains stable at this time and answering questions appropriately - Continue with risperidone 0.5 mg PO HS (started by prior attending and doing well on this) -Continue current management Once out of hospital in and home environment and at lower risk for delirium can consider outpatient neurocognitive evaluation, adjunct dementia agents if appropriate at that time (3) Pneumonia due to COVID-19 virus: Plan: -clinically resolved - NC O2 weaned off 05/03/21 and pt is stable on RA since with normal oxygen saturation - s/p 10 day course of dexamethasone - no symptoms at this time *Received J&J COVID vaccine 05/19/21 as needed for placement. (4) Dizziness: Plan: Admitted when found down at home, + COVID as above and completed treatment Question of syncope at home, and + murmur on examination without ECHO having been performed as ordered on admission No focal deficit concerning for CVA, sounds more like orthostatic hypotension vs BPPV --> given 500cc NSS and no further dizziness reported(orthostasis common in Parkinson pts). Unfortunately had fall as bed alarm not turned on evening 05/20--> CT head negative as above ECHO without significant valvular dysfunction. asymptomatic at this time. Meclizine available prn Continue with current management and monitoring. (5) Parkinsons disease: Plan: Stable. 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 Continue with current management and monitoring. (6) UTI (urinary tract infection): Plan: resolved. s/p levaquin. (7) Dysphagia: Plan: advanced to regular, tolerating well Continue with current management and monitoring. (8) Hypernatremia: Plan: resolved. (9) Diabetes: Plan: controlled. Last A1C 6.5. Patient with some labile blood sugars, glyburide held. Pharmacy consult placed, insulin aspart and glargine continued today with adjusted doses. Pharmacy glycemic management on board given both hyper and hypoglycemia during admission (10) Rhabdomyolysis: Plan: resolved. pt was found on the floor in her home prior to the admission ==>likely to be the cause. (COVID also may have contributed). (11) Pressure injury of back, stage 2: Plan: Present on admission secondary to patient being found down at home Optifoams, frequent turning, etc. --> is S/P drbridement and wound vac in place. wound recommendations in place for discharge will need outpatient F/U ([phone]). cont MVI/vit C/zinc/thiamine. waffle cushion for comfort, Tylenol as needed at this time See additional wound care notes above (12) Chronic kidney disease, stage 3a: Plan: baseline CrCl 50s stable. Spot labs as needed Continue with current management and monitoring. (13) Antibiotic-associated diarrhea: Plan: Frequent loose stools which is likely related to antibiotic associated diarrhea Continue probiotic and yogurt with live cultures Not highly suspicious for C. difficile at this time in the setting of antibiotics (especially on Flagyl). (14) Need for case management follow-up: Plan: Pt will need SNF for inpatient PT/OT, wound care and IV abx therapy. She is medically/hemodynamically stable for discharge. Case management is on board. They did get a call from [facility] on 06/03/21 but unfortunately there are no beds yet available 06/10 received a call from [facility] requesting updated PT/OT and notes, information provided by case management. Would require coordination to [place] wound center rather than our wound care center. Case management continuing to facilitate, appreciate assistance.. Admission and Anticipated Discharge Date Admission Date: April 18, 2021 Subjective Patient appears to be stable looking for disposition challenges no focal complaints at this time Review of Systems Review of Systems: Mild distress and fatigue no headache, no visual changes no speech or swallowing issues no chest pain, pressure or palpitations no shortness of breath, cough or wheezes no abdominal pain, nausea or vomiting, diarrhea or constipation no dysuria, hematuria or frequency no focal joint pain or swelling no back pain, CVA tenderness or radicular pain no bruising, bleeding or rashes no focal signs of weakness or numbness or altered sensation. Able to ambulate well with a rolling walker recommending 24/7 care per PT no complaints of anxiety or depression.. Physical Exam Physical Exam: The patient. Appears in no distress and is stable Vital signs as documented. Head exam is normocephalic atraumatic chin tremor Neck is without JVD, thyromegaly, or carotid bruits. Lungs no focal air loss no crackles Cardiac exam, Rhythm is regular.. No murmurs, rubs or gallops. Abdominal exam reveals normal bowel sounds, soft non tender, no masses Extremities are nonedematous and both pedal pulses are present Neurologic exam is alert and orientedx3, no focal loss of strength or sensation, has resting tremor Skin is without bruises or rashes Psychologically is without concerns for anxiety or depression.. Results & Data Results & Data ([facility]) Vital Signs (Past 12 Hours) Vital Signs Temp Pulse Resp BP Pulse Ox 06/14/21 08:05 98.6 F 76 16 108/67 96 06/13/21 22:33 97.9 F 84 16 147/81 H 97 PG Care Time/CCT Total # of Minutes Spent Total Time Spent with Patient: Total time spent is greater than 50% in coordination of care (as documented) at patient's floor/unit and/or counseling patient: Coding Level of Care Code 32368 Subseq Hosp Care Lvl 2 Diagnoses Sacral decubitus ulcer, stage IV L89.154 Metabolic encephalopathy G93.41 Pneumonia due to COVID-19 virus U07.1; J12.82 Dizziness R42 Parkinsons disease G20 UTI (urinary tract infection) N39.0 Dysphagia R13.10 Hypernatremia E87.0 Diabetes E11.9 Rhabdomyolysis M62.82 Rhabdomyolysis type: non-traumatic Pressure injury of back, stage 2 L89.102 Chronic kidney disease, stage 3a N18.31 Antibiotic-associated diarrhea K52.1; T36.95XA Need for case management follow-up Z09 (1) Rhabdomyolysis Rhabdomyolysis type: non-traumatic Qualified Code(s): M62.82 - Rhabdomyolysis
[2021-06-14] MEDS: cefTRIAXone SODIUM 2,000 MG in DEXTROSE 5% 50 ML IV SCH (17:14)
[2021-06-14] MEDS: risperiDONE 1 MG/ML SOLUTION PO SCH (20:52)
[2021-06-15] MEDS: ASCORBIC ACID 500 MG TAB PO SCH (08:15)
[2021-06-15] MEDS: CARBIDOPA/LEVODOPA 25/100MG TAB PO SCH ×4 (08:15→20:58)
[2021-06-15] MEDS: metFORMIN HCL 500 MG TAB PO SCH ×2 (08:15→16:57)
[2021-06-15] MEDS: POLYETHYLENE (MIRALAX) 17 GM PACK PO SCH (08:16)
[2021-06-15] MEDS: ENOXAPARIN INJ 30 MG/0.3 ML SYR SQ SCH (08:16)
[2021-06-15] MEDS: DICLOFENAC SOD 1% GEL 100 GM TUBE EXT SCH ×3 (08:16→20:56)
[2021-06-15] MEDS: CEROVITE ADV FORMULA TAB PO SCH (08:16)
[2021-06-15] MEDS: DOCUSATE SODIUM/SENNA 50/8.6MG TAB PO SCH (08:16)
[2021-06-15] MEDS: ADVANCED PROBIOTIC 1250 MG CAPSULE PO SCH (08:16)
[2021-06-15] MEDS: ZINC SULFATE 220 MG CAPSULE PO SCH (08:17)
[2021-06-15] MEDS: metroNIDAZOLE 500 MG TAB PO SCH ×3 (08:17→20:57)
[2021-06-15] MEDS: THIAMINE HCL 100 MG TAB PO SCH ×2 (08:17→20:57)
[2021-06-15] MEDS: INSULIN ASPART PER UNIT SC SCH ×4 (08:57→21:13)
--- NOTE | 2021-06-15 14:30 | Hospitalist Progress Note ---
Date of Service June 15, 2021 Assessment & Plan (1) Sacral decubitus ulcer, stage IV: Plan: Surgery was consulted on 05/22 at the request of Wound Care as her sacral ulcer was not responding to conservative care. - Debrided by Dr. Simon on 05/22/2021 - Wound culture sent at that time. Of note, she has exposed bone from the debridement, so she de facto has osteomyelitis. - Wound culture showing Bacteroides and anaerobic gram-positive bacilli - Consulted ID -> Plan for 6 weeks of abx therapy. - continue wound care as guided by general surgery.--> wound vac in place - will complete 6 weeks of Rocephin/Flagyl (LD 07/09/21) - PICC line in place. - Repeat debridement of wound site 06/10/21 - . Placement remains pending, additional information sent to [place] 06/10 for review 06/11: issues with Hypoglycemia Glyburide held. 06/12: Blood sugars remain labile, hyperglycemic after holding glyburide. Due to labile blood sugars with highs and lows during admission pharmacy consulted for glycemic control using ssi (2) Metabolic encephalopathy: Plan: suspect due to COVID encephalopathy, hospital psychosis, UTI, etc. - significantly improved and likely near baseline -MRI brain without acute or subacute CVA; no ICH, tumor, etc. recent b12/tsh wnl -Daughter she states that several months ago the patient was a/o x 3 and living independently . -Continue empiric thiamine 200mg BID x 1 month then consider MVI - remains stable at this time and answering questions appropriately - Continue with risperidone 0.5 mg PO HS (started by prior attending and doing well on this (3) Pneumonia due to COVID-19 virus: Plan: -clinically resolved - NC O2 weaned off 05/03/21 and pt is stable on RA since with normal oxygen saturation - s/p 10 day course of dexamethasone - no symptoms at this time *Received J&J COVID vaccine 05/19/21 as needed for placement. (4) Dizziness: Plan: Admitted when found down at home, + COVID as above and completed treatment No focal deficit concerning for CVA, likely orthostatic hypotension vs BPPV (orthostasis common in Parkinson pts). Unfortunately had fall as bed alarm not turned on evening 05/20--> CT head negative as above ECHO without significant valvular dysfunction. remains asymptomatic since (5) Parkinsons disease: Plan: Stable. 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 (6) UTI (urinary tract infection): Plan: resolved. E Coli s/p levaquin. (7) Dysphagia: Plan: resolved no further concern, advanced to regular, tolerating well (8) Hypernatremia: Plan: resolved. (9) Diabetes: Plan: controlled. Last A1C 6.5. Patient with some labile blood sugars, glyburide held. Pharmacy glycemic management on board given both hyper and hypoglycemia during admission (10) Rhabdomyolysis: Plan: resolved. pt was found on the floor in her home prior to the admission ==>likely to be the cause. (COVID also may have contributed). (11) Pressure injury of back, stage 2: Plan: Present on admission secondary to patient being found down at home Optifoams, frequent turning, etc. --> is S/P drbridement and wound vac in place. wound recommendations in place for discharge will need outpatient F/U ([phone]). cont MVI/vit C/zinc/thiamine. waffle cushion for comfort, Tylenol as needed at this time See additional wound care notes above (12) Chronic kidney disease, stage 3a: Plan: baseline CrCl 50s stable. Spot labs as needed (13) Antibiotic-associated diarrhea: Plan: Frequent loose stools which is likely related to antibiotic associated diarrhea Continue probiotic and yogurt with live cultures (14) Need for case management follow-up: Plan: Pt will need SNF for inpatient PT/OT, wound care and IV abx therapy. She is medically/hemodynamically stable for discharge. Case management is on board. They did get a call from [facility] on 06/03/21 but unfortunately there are no beds yet available 06/10 received a call from [facility] requesting updated PT/OT and notes, information provided by case management. Would require coordination to [place] wound center rather than our wound care center. Case management continuing to facilitate, appreciate assistance.. Admission and Anticipated Discharge Date Admission Date: April 18, 2021 Subjective Patient appears to be stable looking for disposition challenges no focal complaints at this time Review of Systems Review of Systems: Mild distress and fatigue no headache, no visual changes no speech or swallowing issues no chest pain, pressure or palpitations no shortness of breath, cough or wheezes no abdominal pain, nausea or vomiting, diarrhea or constipation no dysuria, hematuria or frequency no focal joint pain or swelling no back pain, CVA tenderness or radicular pain no bruising, bleeding or rashes no focal signs of weakness or numbness or altered sensation. Able to ambulate well with a rolling walker recommending 24/7 care per PT no complaints of anxiety or depression.. Physical Exam Physical Exam: The patient. Appears in no distress and is stable Vital signs as documented. Head exam is normocephalic atraumatic chin tremor Neck is without JVD, thyromegaly, or carotid bruits. Lungs no focal air loss no crackles Cardiac exam, Rhythm is regular.. No murmurs, rubs or gallops. Abdominal exam reveals normal bowel sounds, soft non tender, no masses Extremities are nonedematous and both pedal pulses are present Neurologic exam is alert and orientedx3, no focal loss of strength or sensation, has resting tremor Skin is without bruises or rashes Psychologically is without concerns for anxiety or depression.. Results & Data Results & Data ([facility]) Vital Signs (Past 12 Hours) Vital Signs Temp Pulse Resp BP Pulse Ox 06/15/21 08:33 98.6 F 91 H 16 120/79 99 PG Care Time/CCT Total # of Minutes Spent Total Time Spent with Patient: Total time spent is greater than 50% in coordination of care (as documented) at patient's floor/unit and/or counseling patient: Coding Level of Care Code 49285 Subseq Hosp Care Lvl 2 Diagnoses Sacral decubitus ulcer, stage IV L89.154 Metabolic encephalopathy G93.41 Pneumonia due to COVID-19 virus U07.1; J12.82 Dizziness R42 Parkinsons disease G20 UTI (urinary tract infection) N39.0 Dysphagia R13.10 Hypernatremia E87.0 Diabetes E11.9 Rhabdomyolysis M62.82 Rhabdomyolysis type: non-traumatic Pressure injury of back, stage 2 L89.102 Chronic kidney disease, stage 3a N18.31 Antibiotic-associated diarrhea K52.1; T36.95XA Need for case management follow-up Z09 (1) Rhabdomyolysis Rhabdomyolysis type: non-traumatic Qualified Code(s): M62.82 - Rhabdomyolysis
[2021-06-15] MEDS: cefTRIAXone SODIUM 2,000 MG in DEXTROSE 5% 50 ML IV SCH (16:57)
[2021-06-15] MEDS: risperiDONE 1 MG/ML SOLUTION PO SCH (20:57)
--- NOTE | 2021-06-16 07:20 | Hospitalist Progress Note ---
Date of Service June 16, 2021 Assessment & Plan (1) Sacral decubitus ulcer, stage IV: Plan: Surgery was consulted on 05/22 at the request of Wound Care as her sacral ulcer was not responding to conservative care. - Debrided by Dr. Simon on 05/22/2021 - Wound culture sent at that time. Of note, she has exposed bone from the debridement, so she de facto has osteomyelitis. - Wound culture showing Bacteroides and anaerobic gram-positive bacilli - Consulted ID -> Plan for 6 weeks of abx therapy. - continue wound care as guided by general surgery.--> wound vac in place - will complete 6 weeks of Rocephin/Flagyl (LD 07/09/21) - PICC line in place. - Repeat debridement of wound site 06/10/21 - . Placement remains pending, additional information sent to [place] 06/10 for review 06/11: issues with Hypoglycemia Glyburide held. 06/12: Blood sugars remain labile, hyperglycemic after holding glyburide. Due to labile blood sugars with highs and lows during admission pharmacy consulted for glycemic control using ssi (2) Metabolic encephalopathy: Plan: suspect due to COVID encephalopathy, hospital psychosis, UTI, etc. - significantly improved and likely near baseline -MRI brain without acute or subacute CVA; no ICH, tumor, etc. recent b12/tsh wnl -Daughter she states that several months ago the patient was a/o x 3 and living independently . -Continue empiric thiamine 200mg BID x 1 month then consider MVI - remains stable at this time and answering questions appropriately - Continue with risperidone 0.5 mg PO HS (started by prior attending and doing well on this (3) Pneumonia due to COVID-19 virus: Plan: -clinically resolved - [place] O2 weaned off 05/03/21 and pt is stable on RA since with normal oxygen saturation - s/p 10 day course of dexamethasone - no symptoms at this time *Received J&J COVID vaccine 05/19/21 as needed for placement. (4) Dizziness: Plan: Admitted when found down at home, + COVID as above and completed treatment No focal deficit concerning for CVA, likely orthostatic hypotension vs BPPV (orthostasis common in Parkinson pts). Unfortunately had fall as bed alarm not turned on evening 05/20--> CT head negative as above ECHO without significant valvular dysfunction. remains asymptomatic since (5) Parkinsons disease: Plan: Stable. 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 (6) UTI (urinary tract infection): Plan: resolved. E Coli s/p levaquin. (7) Dysphagia: Plan: resolved no further concern, advanced to regular, tolerating well (8) Hypernatremia: Plan: resolved. (9) Diabetes: Plan: controlled. Last A1C 6.5. Patient with some labile blood sugars, glyburide held. Pharmacy glycemic management on board given both hyper and hypoglycemia during admission (10) Rhabdomyolysis: Plan: resolved. pt was found on the floor in her home prior to the admission ==>likely to be the cause. (COVID also may have contributed). (11) Pressure injury of back, stage 2: Plan: Present on admission secondary to patient being found down at home Optifoams, frequent turning, etc. --> is S/P drbridement and wound vac in place. wound recommendations in place for discharge will need outpatient F/U ([phone]). cont MVI/vit C/zinc/thiamine. waffle cushion for comfort, Tylenol as needed at this time See additional wound care notes above (12) Chronic kidney disease, stage 3a: Plan: baseline CrCl 50s stable. Spot labs as needed (13) Antibiotic-associated diarrhea: Plan: Frequent loose stools which is likely related to antibiotic associated diarrhea Continue probiotic and yogurt with live cultures (14) Need for case management follow-up: Plan: Pt will need SNF for inpatient PT/OT, wound care and IV abx therapy. She is medically/hemodynamically stable for discharge. Case management is on board. They did get a call from [facility] on but unfortunately there are no beds yet available 06/10 received a call from [facility] requesting updated PT/OT and notes, information provided by case management. Would require coordination to [place] wound center rather than our wound care center. Case management continuing to facilitate, appreciate assistance.. Admission and Anticipated Discharge Date Admission Date: April 18, 2021 Subjective Patient appears to be stable looking for disposition challenges no focal complaints at this time, maybe opportunity this week Review of Systems Review of Systems: Mild distress and fatigue no headache, no visual changes no speech or swallowing issues no chest pain, pressure or palpitations no shortness of breath, cough or wheezes no abdominal pain, nausea or vomiting, diarrhea or constipation no dysuria, hematuria or frequency no focal joint pain or swelling no back pain, CVA tenderness or radicular pain no bruising, bleeding or rashes no focal signs of weakness or numbness or altered sensation. Able to ambulate well with a rolling walker recommending 24/7 care per PT no complaints of anxiety or depression.. Physical Exam Physical Exam: The patient. Appears in no distress and is stable Vital signs as documented. Head exam is normocephalic atraumatic chin tremor Neck is without JVD, thyromegaly, or carotid bruits. Lungs no focal air loss no crackles Cardiac exam, Rhythm is regular.. No murmurs, rubs or gallops. Abdominal exam reveals normal bowel sounds, soft non tender, no masses Extremities are nonedematous and both pedal pulses are present Neurologic exam is alert and orientedx3, no focal loss of strength or sensation, has resting tremor Skin is without bruises or rashes Psychologically is without concerns for anxiety or depression.. Results & Data Results & Data ([facility]) Vital Signs (Past 12 Hours) Vital Signs Temp Pulse Pulse Resp BP BP Pulse Ox 06/16/21 07:10 97.7 F 87 16 115/74 94 06/15/21 22:54 97.7 F 88 16 128/75 96 PG Care Time/CCT Total # of Minutes Spent Total Time Spent with Patient: Total time spent is greater than 50% in coordination of care (as documented) at patient's floor/unit and/or counseling patient: Coding Level of Care Code 55884 Subseq Hosp Care Lvl 1 Diagnoses Sacral decubitus ulcer, stage IV L89.154 Metabolic encephalopathy G93.41 Pneumonia due to COVID-19 virus U07.1; J12.82 Dizziness R42 Parkinsons disease G20 UTI (urinary tract infection) N39.0 Dysphagia R13.10 Hypernatremia E87.0 Diabetes E11.9 Rhabdomyolysis M62.82 Rhabdomyolysis type: non-traumatic Pressure injury of back, stage 2 L89.102 Chronic kidney disease, stage 3a N18.31 Antibiotic-associated diarrhea K52.1; T36.95XA Need for case management follow-up Z09 (1) Rhabdomyolysis Rhabdomyolysis type: non-traumatic Qualified Code(s): M62.82 - Rhabdomyolysis
[2021-06-16] MEDS: ZINC SULFATE 220 MG CAPSULE PO SCH (08:54)
[2021-06-16] MEDS: CEROVITE ADV FORMULA TAB PO SCH (08:54)
[2021-06-16] MEDS: DOCUSATE SODIUM/SENNA 50/8.6MG TAB PO SCH (08:54)
[2021-06-16] MEDS: ADVANCED PROBIOTIC 1250 MG CAPSULE PO SCH (08:54)
[2021-06-16] MEDS: metFORMIN HCL 500 MG TAB PO SCH ×2 (08:54→17:09)
[2021-06-16] MEDS: ASCORBIC ACID 500 MG TAB PO SCH (08:54)
[2021-06-16] MEDS: metroNIDAZOLE 500 MG TAB PO SCH ×3 (08:55→20:19)
[2021-06-16] MEDS: THIAMINE HCL 100 MG TAB PO SCH ×2 (08:55→20:19)
[2021-06-16] MEDS: POLYETHYLENE (MIRALAX) 17 GM PACK PO SCH (08:56)
[2021-06-16] MEDS: DICLOFENAC SOD 1% GEL 100 GM TUBE EXT SCH ×3 (08:56→20:20)
[2021-06-16] MEDS: CARBIDOPA/LEVODOPA 25/100MG TAB PO SCH ×4 (08:56→20:19)
[2021-06-16] MEDS: ENOXAPARIN INJ 30 MG/0.3 ML SYR SQ SCH (08:57)
[2021-06-16] MEDS: INSULIN ASPART PER UNIT SC SCH ×4 (08:57→21:44)
--- NOTE | 2021-06-16 13:32 | Pharmacy Report ---
Pharmacy Glycemic Short Note 2 - Date of Service June 16, 2021 - Glycemic Short BSG Results (Last 24 hours): 06/15/21 06/15/21 06/16/21 17:04 20:31 08:04 POC Glucose 124 H 96 167 H 06/16/21 12:08 POC Glucose 123 H OUTPATIENT ANTIDIABETIC REGIMEN: * Metformin 500 mg PO BID with meals * Glyburide 5 mg PO BID with meals ASSESSMENT: 06/16/21 * BSGs yesterday were [phone] mg/dL and fasting today is 167 mg/dL. * Patient received a total of 12 units of bolus insulin yesterday. * Will continue regimen of metformin + Novolog. 06/13: * Patient received total 12 units of insulin yesterday; 4 units of basal + 8 units bolus. * Fasting BSG = 186 mg/dl. Novolog CF/CR tightened this AM but loosened for the rest of the day. * Pre-lunch BSG = 87 mg/dl. * Basal Lantus dose discontinued today. Patient continues to be on Metformin BID with meals. Background 06/12/21 * Patient admitted for Rhabdomyolysis and Covid Pneumonia in 03/2021. She also has sacral decubitus ulcer with osteomyelitis that requires 6 weeks of antibiotics. Currently on IV Rocephin and PO Flagyl. Awaiting SNF placement. * History of Type 2 diabetes managed at home on oral Metformin and Glyburide. Most recently this was resumed in house and her Novolog discontinued. She has been receiving Lantus 4 units SQ QAM (dosing titrated down since admission). * Blood sugars have been labile. Glyburide held yesterday since patient had a low BSG of 64 mg/dl at dinner time. Metformin dose at dinner was held yesterday then continued BID today. * Pharmacy consulted for glycemic management today due to recent highs and lows in BSGs. * Continued basal Lantus 4 units QAM. Novolog ordered with lunch based on weight and stress looser than 2. If BSGs trend low then plan to loosen Novolog carb ratio further. PLAN FOR INPATIENT GLYCEMIC CONTROL: * Hold Glyburide. * Continue oral Metformin 500 mg BID with meals * Basal insulin * d/c * Bolus insulin * NovoLog per scale ACHS or Q6hrs while NPO * Goal Range: Low 120 mg/dL - High 150 mg/dL * Correction Factor: 40 mg/dL/unit * Nutritional / Prandial insulin per carb ratio of 1 unit per 20 grams CHO consumed with breakfast and 1:25 gm CHO consumed with lunch, dinner and HS. PLAN FOR DISCHARGE: * HbA1c = 6.5% on 05/30/21 * Above A1c indicates patient's diabetes is well controlled given her age and co-morbidities. * If patient is not reporting hypoglycemia at home, then recommend continue home meds: Metformin 500 mg BID and Glyburide 5 mg PO BID with meals.
[2021-06-16] MEDS: cefTRIAXone SODIUM 2,000 MG in DEXTROSE 5% 50 ML IV SCH (17:12)
[2021-06-16] MEDS: risperiDONE 1 MG/ML SOLUTION PO SCH (20:19)
--- NOTE | 2021-06-17 07:10 | Hospitalist Progress Note ---
Date of Service June 17, 2021 Assessment & Plan (1) Sacral decubitus ulcer, stage IV: Plan: Surgery was consulted on 05/22 at the request of Wound Care as her sacral ulcer was not responding to conservative care. - Debrided by Dr. Simon on 05/22/2021 - Wound culture sent at that time. Of note, she has exposed bone from the debridement, so she de facto has osteomyelitis. - Wound culture showing Bacteroides and anaerobic gram-positive bacilli - Consulted ID -> Plan for 6 weeks of abx therapy. - continue wound care as guided by general surgery.--> wound vac in place - will complete 6 weeks of Rocephin/Flagyl (LD 07/09/21) - PICC line in place. - Repeat debridement of wound site 06/10/21 - . Placement remains pending, additional information sent to [place] 06/10 for review 06/11: issues with Hypoglycemia Glyburide held. Blood sugars are much better controlled we will have to discuss with pharmacy on transition what a appropriate regimen would be for outpatient use (2) Metabolic encephalopathy: Plan: Resolved suspect due to COVID encephalopathy, hospital psychosis, UTI, etc. - significantly improved and likely near baseline -MRI brain without acute or subacute CVA; no ICH, tumor, etc. recent b12/tsh wnl -Daughter she states that several months ago the patient was a/o x 3 and living independently . -Completed empiric thiamine 200mg BID x 1 month then consider MVI - remains stable at this time and answering questions appropriately - Continue with risperidone 0.5 mg PO HS (started by prior attending and doing well on this (3) Pneumonia due to COVID-19 virus: Plan: -clinically resolved - NC O2 weaned off 05/03/21 and pt is stable on RA since with normal oxygen satu ration - s/p 10 day course of dexamethasone - no symptoms at this time *Received J&J COVID vaccine 05/19/21 as needed for placement. (4) Dizziness: Plan: Admitted when found down at home, + COVID as above and completed treatment No focal deficit concerning for CVA, likely orthostatic hypotension vs BPPV (orthostasis common in Parkinson pts). Unfortunately had fall as bed alarm not turned on evening 05/20--> CT head negative as above ECHO without significant valvular dysfunction. remains asymptomatic since (5) Parkinsons disease: Plan: Stable. 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 (6) UTI (urinary tract infection): Plan: resolved. E Coli s/p levaquin. (7) Dysphagia: Plan: resolved no further concern, advanced to regular, tolerating well (8) Hypernatremia: Plan: resolved. (9) Diabetes: Plan: controlled. Last A1C 6.5. Patient with some labile blood sugars, glyburide held. Pharmacy glycemic management on board given both hyper and hypoglycemia during admission (10) Rhabdomyolysis: Plan: resolved. pt was found on the floor in her home prior to the admission ==>likely to be the cause. (COVID also may have contributed). (11) Pressure injury of back, stage 2: Plan: Present on admission secondary to patient being found down at home Optifoams, frequent turning, etc. --> is S/P drbridement and wound vac in place. wound recommendations in place for discharge will need outpatient F/U ([phone]). cont MVI/vit C/zinc/thiamine. waffle cushion for comfort, Tylenol as needed at this time See additional wound care notes above (12) Chronic kidney disease, stage 3a: Plan: baseline CrCl 50s stable. Spot labs as needed (13) Antibiotic-associated diarrhea: Plan: Frequent loose stools which is likely related to antibiotic associated diarrhea Continue probiotic and yogurt with live cultures (14) Need for case management follow-up: Plan: Pt will need SNF for inpatient PT/OT, wound care and IV abx therapy. She is medically/hemodynamically stable for discharge. Case management is on board. They did get a call from [facility] on 06/03/21 but unfortunately there are no beds yet available 06/10 received a call from Osorio Butterfield requesting updated PT/OT and notes, information provided by case management. Would require coordination to [place] wound center rather than our wound care center. Case management continuing to facilitate, appreciate assistance.. Admission and Anticipated Discharge Date Admission Date: April 18, 2021 Subjective Patient appears to be stable patient had a poor night sleep and is looking to getting a nap this afternoon., maybe opportunity this week to transition to long-term living Review of Systems Review of Systems: Mild distress and fatigue no headache, no visual changes no speech or swallowing issues no chest pain, pressure or palpitations no shortness of breath, cough or wheezes no abdominal pain, nausea or vomiting, diarrhea or constipation no dysuria, hematuria or frequency no focal joint pain or swelling no back pain, CVA tenderness or radicular pain no bruising, bleeding or rashes no focal signs of weakness or numbness or altered sensation. Able to ambulate well with a rolling walker no complaints of anxiety or depression.. Physical Exam Physical Exam: The patient. Appears in no distress and is stable Vital signs as documented. Head exam is normocephalic atraumatic chin tremor Neck is without JVD, thyromegaly, or carotid bruits. Lungs no focal air loss no crackles Cardiac exam, Rhythm is regular.. No murmurs, rubs or gallops. Abdominal exam reveals normal bowel sounds, soft non tender, no masses Extremities are nonedematous and both pedal pulses are present Neurologic exam is alert and orientedx3, no focal loss of strength or sensation, has resting tremor Skin is without bruises or rashes Psychologically is without concerns for anxiety or depression.. Results & Data Results & Data ([facility]) Vital Signs (Past 12 Hours) Vital Signs Temp Pulse Resp BP Pulse Ox 06/16/21 22:29 98.1 F 84 16 119/70 95 PG Care Time/CCT Total # of Minutes Spent Total Time Spent with Patient: Total time spent is greater than 50% in coordination of care (as documented) at patient's floor/unit and/or counseling patient: Coding Level of Care Code 79137 Subseq Hosp Care Lvl 2 Diagnoses Sacral decubitus ulcer, stage IV L89.154 Metabolic encephalopathy G93.41 Pneumonia due to COVID-19 virus U07.1; J12.82 Dizziness R42 Parkinsons disease G20 UTI (urinary tract infection) N39.0 Dysphagia R13.10 Hypernatremia E87.0 Diabetes E11.9 Rhabdomyolysis M62.82 Rhabdomyolysis type: non-traumatic Pressure injury of back, stage 2 L89.102 Chronic kidney disease, stage 3a N18.31 Antibiotic-associated diarrhea K52.1; T36.95XA Need for case management follow-up Z09 (1) Rhabdomyolysis Rhabdomyolysis type: non-traumatic Qualified Code(s): M62.82 - Rhabdomyolysis
[2021-06-17] MEDS: DICLOFENAC SOD 1% GEL 100 GM TUBE EXT SCH ×3 (08:48→21:21)
[2021-06-17] MEDS: DOCUSATE SODIUM/SENNA 50/8.6MG TAB PO SCH (08:48)
[2021-06-17] MEDS: ASCORBIC ACID 500 MG TAB PO SCH (08:48)
[2021-06-17] MEDS: ZINC SULFATE 220 MG CAPSULE PO SCH (08:48)
[2021-06-17] MEDS: POLYETHYLENE (MIRALAX) 17 GM PACK PO SCH (08:48)
[2021-06-17] MEDS: metroNIDAZOLE 500 MG TAB PO SCH ×3 (08:48→22:13)
[2021-06-17] MEDS: ENOXAPARIN INJ 30 MG/0.3 ML SYR SQ SCH (08:48)
[2021-06-17] MEDS: ADVANCED PROBIOTIC 1250 MG CAPSULE PO SCH (08:48)
[2021-06-17] MEDS: THIAMINE HCL 100 MG TAB PO SCH (08:48)
[2021-06-17] MEDS: CEROVITE ADV FORMULA TAB PO SCH (08:48)
[2021-06-17] MEDS: metFORMIN HCL 500 MG TAB PO SCH ×2 (08:49→17:42)
[2021-06-17] MEDS: CARBIDOPA/LEVODOPA 25/100MG TAB PO SCH ×4 (08:49→21:21)
[2021-06-17] MEDS: INSULIN ASPART PER UNIT SC SCH ×4 (08:57→22:25)
[2021-06-17] MEDS: cefTRIAXone SODIUM 2,000 MG in DEXTROSE 5% 50 ML IV SCH (17:42)
[2021-06-17] MEDS: risperiDONE 1 MG/ML SOLUTION PO SCH (21:21)
[2021-06-18] MEDS: DICLOFENAC SOD 1% GEL 100 GM TUBE EXT SCH ×3 (08:26→21:29)
[2021-06-18] MEDS: ASCORBIC ACID 500 MG TAB PO SCH (08:26)
[2021-06-18] MEDS: ZINC SULFATE 220 MG CAPSULE PO SCH (08:26)
[2021-06-18] MEDS: metFORMIN HCL 500 MG TAB PO SCH ×2 (08:26→17:20)
[2021-06-18] MEDS: ADVANCED PROBIOTIC 1250 MG CAPSULE PO SCH (08:26)
[2021-06-18] MEDS: ENOXAPARIN INJ 30 MG/0.3 ML SYR SQ SCH (08:27)
[2021-06-18] MEDS: CEROVITE ADV FORMULA TAB PO SCH (08:27)
[2021-06-18] MEDS: INSULIN ASPART PER UNIT SC SCH ×4 (08:27→21:33)
[2021-06-18] MEDS: metroNIDAZOLE 500 MG TAB PO SCH ×3 (08:27→21:29)
[2021-06-18] MEDS: DOCUSATE SODIUM/SENNA 50/8.6MG TAB PO SCH (08:27)
[2021-06-18] MEDS: cefTRIAXone SODIUM 2,000 MG in DEXTROSE 5% 50 ML IV SCH (17:20)
[2021-06-18] MEDS ORDERED: CARBOHYDRATES FOR HYPOGLYCEMIA PO PRN (19:23)
[2021-06-18] MEDS ORDERED: GLUCAGON FOR INJ 1 MG VIAL SQ PRN (19:23)
[2021-06-18] MEDS ORDERED: GLUCOSE 10 TABS/TUBE PO PRN (19:23)
[2021-06-18] MEDS ORDERED: DEXTROSE 50% 50 ML SYRINGE IV PRN (19:23)
[2021-06-18] MEDS ORDERED: GLUCOSE 40% GEL 15 GM TUBE PO PRN (19:23)
[2021-06-18] MEDS ORDERED: ONDANSETRON INJ 2 MG/ML 2 ML VIAL IV PRN (19:24)
[2021-06-18] MEDS ORDERED: POLYETHYLENE (MIRALAX) 17 GM PACK PO PRN (19:24)
[2021-06-18] MEDS ORDERED: ACETAMINOPHEN 500 MG TAB PO PRN (19:56)
--- NOTE | 2021-06-18 19:59 | Hospitalist Progress Note ---
Date of Service June 18, 2021 Assessment & Plan (1) Sacral decubitus ulcer, stage IV: Plan: Surgery was consulted on 05/22 at the request of Wound Care as her sacral ulcer was not responding to conservative care. - Debrided by Dr. Simon on 05/22/2021 - Wound culture sent at that time. Of note, she has exposed bone from the debridement, so she de facto has osteomyelitis. - Wound culture showing Bacteroides and anaerobic gram-positive bacilli - Consulted ID -> Plan for 6 weeks of abx therapy. - continue wound care as guided by general surgery.--> wound vac in place - will complete 6 weeks of Rocephin/Flagyl (LD 07/09/21) - PICC line in place. - Repeat debridement of wound site 06/10/21 - . Placement remains pending, additional information sent to [place] 06/10 for review 06/11: issues with Hypoglycemia Glyburide held. Blood sugars are much better controlled we will have to discuss with pharmacy on transition what a appropriate regimen would be for outpatient use (2) Metabolic encephalopathy: Plan: Resolved suspect due to COVID encephalopathy, hospital psychosis, UTI, etc. - significantly improved and likely near baseline -MRI brain without acute or subacute CVA; no ICH, tumor, etc. recent b12/tsh wnl -Daughter she states that several months ago the patient was a/o x 3 and living independently . -Completed empiric thiamine 200mg BID x 1 month then consider MVI - remains stable at this time and answering questions appropriately - Continue with risperidone 0.5 mg PO HS (started by prior attending and doing well on this (3) Pneumonia due to COVID-19 virus: Plan: -clinically resolved - NC O2 weaned off 05/03/21 and pt is stable on RA since with normal oxygen satu ration - s/p 10 day course of dexamethasone - no symptoms at this time *Received J&J COVID vaccine 05/19/21 as needed for placement. (4) Dizziness: Plan: Admitted when found down at home, + COVID as above and completed treatment No focal deficit concerning for CVA, likely orthostatic hypotension vs BPPV (orthostasis common in Parkinson pts). Unfortunately had fall as bed alarm not turned on evening 05/20--> CT head negative as above ECHO without significant valvular dysfunction. remains asymptomatic since (5) Parkinsons disease: Plan: Stable. 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 (6) UTI (urinary tract infection): Plan: resolved. E Coli s/p levaquin. (7) Dysphagia: Plan: resolved no further concern, advanced to regular, tolerating well (8) Hypernatremia: Plan: resolved. (9) Diabetes: Plan: controlled. Last A1C 6.5. Patient with some labile blood sugars, glyburide held. Pharmacy glycemic management on board given both hyper and hypoglycemia during admission (10) Rhabdomyolysis: Plan: resolved. pt was found on the floor in her home prior to the admission ==>likely to be the cause. (COVID also may have contributed). (11) Pressure injury of back, stage 2: Plan: Present on admission secondary to patient being found down at home Optifoams, frequent turning, etc. --> is S/P drbridement and wound vac in place. wound recommendations in place for discharge will need outpatient F/U ([phone]). cont MVI/vit C/zinc/thiamine. waffle cushion for comfort, Tylenol as needed at this time See additional wound care notes above (12) Chronic kidney disease, stage 3a: Plan: baseline CrCl 50s stable. Spot labs as needed (13) Antibiotic-associated diarrhea: Plan: Frequent loose stools which is likely related to antibiotic associated diarrhea Continue probiotic and yogurt with live cultures (14) Need for case management follow-up: Plan: Pt will need SNF for inpatient PT/OT, wound care and IV abx therapy. She is medically/hemodynamically stable for discharge. Case management is on board. They did get a call from [facility] on 06/03/21 but unfortunately there are no beds yet available 06/10 received a call from Osorio Butterfield requesting updated PT/OT and notes, information provided by case management. Would require coordination to [place] wound center rather than our wound care center. Case management continuing to facilitate, appreciate assistance.. Admission and Anticipated Discharge Date Admission Date: April 18, 2021 Subjective Patient appears to be stable patient had a better night sleep, maybe opportunity this week to transition to long-term living Review of Systems Review of Systems: Mild distress and fatigue no headache, no visual changes no speech or swallowing issues no chest pain, pressure or palpitations no shortness of breath, cough or wheezes no abdominal pain, nausea or vomiting, diarrhea or constipation no dysuria, hematuria or frequency no focal joint pain or swelling no back pain, CVA tenderness or radicular pain no bruising, bleeding or rashes no focal signs of weakness or numbness or altered sensation. Able to ambulate well with a rolling walker no complaints of anxiety or depression.. Physical Exam Physical Exam: The patient. Appears in no distress and is stable Vital signs as documented. Head exam is normocephalic atraumatic chin tremor Neck is without JVD, thyromegaly, or carotid bruits. Lungs no focal air loss no crackles Cardiac exam, Rhythm is regular.. No murmurs, rubs or gallops. Abdominal exam reveals normal bowel sounds, soft non tender, no masses Extremities are nonedematous and both pedal pulses are present Neurologic exam is alert and orientedx3, no focal loss of strength or sensation, has resting tremor Skin is without bruises or rashes Psychologically is without concerns for anxiety or depression.. Results & Data Results & Data ([facility]) Vital Signs (Past 12 Hours) Vital Signs Temp Pulse Resp BP Pulse Ox 06/18/21 15:38 98.8 F 77 18 126/78 97 PG Care Time/CCT Total # of Minutes Spent Total Time Spent with Patient: Total time spent is greater than 50% in coordination of care (as documented) at patient's floor/unit and/or counseling patient: Coding Level of Care Code 09969 Subseq Hosp Care Lvl 1 Diagnoses Sacral decubitus ulcer, stage IV L89.154 Metabolic encephalopathy G93.41 Pneumonia due to COVID-19 virus U07.1; J12.82 Dizziness R42 Parkinsons disease G20 UTI (urinary tract infection) N39.0 Dysphagia R13.10 Hypernatremia E87.0 Diabetes E11.9 Rhabdomyolysis M62.82 Rhabdomyolysis type: non-traumatic Pressure injury of back, stage 2 L89.102 Chronic kidney disease, stage 3a N18.31 Antibiotic-associated diarrhea K52.1; T36.95XA Need for case management follow-up Z09 (1) Rhabdomyolysis Rhabdomyolysis type: non-traumatic Qualified Code(s): M62.82 - Rhabdomyolysis
[2021-06-18] MEDS ORDERED: CARBIDOPA/LEVODOPA 25/100MG TAB PO SCH (21:00)
[2021-06-18] MEDS: CARBIDOPA/LEVODOPA 25/100MG TAB PO SCH (21:29)
[2021-06-18] MEDS: risperiDONE 1 MG/ML SOLUTION PO SCH (21:29)
[2021-06-18] MEDS: THIAMINE HCL 100 MG TAB PO SCH (21:30)
[2021-06-19] MEDS: metFORMIN HCL 500 MG TAB PO SCH (08:25)
[2021-06-19] MEDS: CARBIDOPA/LEVODOPA 25/100MG TAB PO SCH ×2 (08:26→13:05)
[2021-06-19] MEDS: ADVANCED PROBIOTIC 1250 MG CAPSULE PO SCH (08:26)
[2021-06-19] MEDS: DOCUSATE SODIUM/SENNA 50/8.6MG TAB PO SCH (08:26)
[2021-06-19] MEDS: metroNIDAZOLE 500 MG TAB PO SCH (08:26)
[2021-06-19] MEDS: ZINC SULFATE 220 MG CAPSULE PO SCH (08:26)
[2021-06-19] MEDS: THIAMINE HCL 100 MG TAB PO SCH (08:26)
[2021-06-19] MEDS: CEROVITE ADV FORMULA TAB PO SCH (08:26)
[2021-06-19] MEDS: ASCORBIC ACID 500 MG TAB PO SCH (08:26)
[2021-06-19] MEDS ORDERED: POLYETHYLENE (MIRALAX) 17 GM PACK PO SCH (09:00)
[2021-06-19] MEDS: ENOXAPARIN INJ 30 MG/0.3 ML SYR SQ SCH (09:26)
[2021-06-19] MEDS: DICLOFENAC SOD 1% GEL 100 GM TUBE EXT SCH (09:28)
[2021-06-19] MEDS: INSULIN ASPART PER UNIT SC SCH ×2 (09:30→13:06)
--- NOTE | 2021-06-19 18:25 | Discharge Summary ---
Date of Service June 19, 2021 Principal Diagnosis covid pneumonia decubitus ulcer parkinsons disease e coli uti resolved diabetes with hypoglycemia Discharge Exam The patient appeared well Vital signs as documented. Lungs are clear to auscultation and appear unlabored Cardiac exam, Rhythm is regular.. No murmurs, rubs or gallops. Abdominal exam reveals normal bowel sounds, soft non tender, no masses Extremities are nonedematous and both pedal pulses are normal. Neurologic exam is alert and oriented, no focal loss of strength or sensation Skin is without bruises or rashes Psychologically is without concerns for anxiety or depression. Discharge Data Allergies Allergy/AdvReac Type Severity Reaction Status Date / Time latex Allergy Mild RASH Verified 04/18/21 14:19 bee venom protein (honey bee) Allergy Unknown Unknown Verified 04/28/21 09:22 Sulfa (Sulfonamide Allergy Unknown Unknown Verified 04/28/21 09:22 Antibiotics) Consultations 04/18/21 15:34 ED Decision to Admit Stat 04/19/21 02:57 Consult Cardiology Routine 05/22/21 14:49 Consult General Surgery Routine 05/23/21 16:16 Consult Infectious Diseases Routine Ordered Studies 04/18/21 13:35 CT head/brain wo con Stat 05/07/21 08:57 MR brain wo con Routine 05/20/21 16:40 CT head/brain wo con Urgent Hospital Course (1) Sacral decubitus ulcer, stage IV: Surgery was consulted on 05/22 at the request of Wound Care as her sacral ulcer was not responding to conservative care. - Debrided by Dr. Simon on 05/22/2021 - Wound culture sent at that time. Of note, she has exposed bone from the debridement, so she de facto has osteomyelitis. - Wound culture showing Bacteroides and anaerobic gram-positive bacilli - Consulted ID -> Plan for 6 weeks of abx therapy. - continue wound care as guided by general surgery.--> wound vac in place - will complete 6 weeks of Rocephin/Flagyl (LD 07/09/21) - PICC line in place. - Repeat debridement of wound site 06/10/21 she was wound VAC in place on discharge - . issues with Hypoglycemia Glyburide held. Blood sugars are much better controlled we will keep on sliding scale insulin and recommend that her glyburide be escalated hopefully to extinguishes sliding scale insulin like lead to hold the carbohydrate ratio of the sliding scale while the glipizide is restarted (2) Metabolic encephalopathy: Resolved suspect due to COVID encephalopathy, hospital psychosis, UTI, etc. - significantly improved and likely near baseline -MRI brain without acute or subacute CVA; no ICH, tumor, etc. recent b12/tsh wnl -Daughter she states that several months ago the patient was a/o x 3 and living independently . -Completed empiric thiamine 200mg BID x 1 month then consider MVI - remains stable at this time and answering questions appropriately - Continue with risperidone 0.5 mg PO HS (started by prior attending and doing well on this (3) Pneumonia due to COVID-19 virus: -clinically resolved - NC O2 weaned off 05/03/21 and pt is stable on RA since with normal oxygen saturation - s/p 10 day course of dexamethasone - no symptoms at this time *Received J&J COVID vaccine 05/19/21 as needed for placement. (4) Dizziness: Admitted when found down at home, + COVID as above and completed treatment No focal deficit concerning for CVA, likely orthostatic hypotension vs BPPV (orthostasis common in Parkinson pts). Unfortunately had fall as bed alarm not turned on evening 05/20--> CT head negative as above ECHO without significant valvular dysfunction. remains asymptomatic since (5) Parkinsons disease: Stable. 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 (6) UTI (urinary tract infection): resolved. E Coli s/p levaquin. (7) Dysphagia: resolved no further concern, advanced to regular, tolerating well (8) Hypernatremia: resolved. (9) Diabetes: controlled. Last A1C 6.5. Patient with some labile blood sugars, glyburide held. Pharmacy glycemic management on board given both hyper and hypoglycemia during admission (10) Rhabdomyolysis: resolved. pt was found on the floor in her home prior to the admission ==>likely to be the cause. (COVID also may have contributed). (11) Pressure injury of back, stage 2: Present on admission secondary to patient being found down at home Optifoams, frequent turning, etc. --> is S/P drbridement and wound vac in place. wound recommendations in place for discharge will need outpatient F/U ([phone]). cont MVI/vit C/zinc/thiamine. waffle cushion for comfort, Tylenol as needed at this time See additional wound care notes above (12) Chronic kidney disease, stage 3a: baseline CrCl 50s stable. Spot labs as needed (13) Antibiotic-associated diarrhea: Frequent loose stools which is likely related to antibiotic associated diarrhea Continue probiotic and yogurt with live cultures Total Time Total Time Spent Total Time Spent (In Minutes): It required greater than 30 minutes to prepare this patient for discharge Discharge Plan Discharge Items Patient Disposition: Transfer Longterm Fac Reason For Visit: CONFUSION, COVID Discharge Diagnosis: metabolic encephalopathy decubitus ulcer coccyx hypoglycemia covid infection cleared and vaccinated Activity: Per Instructions section Activity Comment: PT/OT Non-emergency contact: Primary Care Provider Call non-emergency contact if: your symptoms worsen and you have a fever Follow-up/Referrals: Edil Singh MD [Primary Care Provider] - Diet: Carb Consistent or DM2 Addtl Attending Provider Instructions: complete full course of antibiotic: 1. Rocephin 2G IV daily (to complete 07/09/21) 2. Flagyl 500mg po TID (to complete 07/09/21) Probiotic recommended while on antibiotic therapy to help with antibiotic associated diarrhea PICC line care per protocol with routine flush Wound care instructions: Sacrumwound VAC in place Apply skin prep and drape to periwound Protect exposed bone with Adaptic touch Apply black foam, cover with drape and track pad. Pressure at -125 mmhg Change Wednesday, Wednesday, and as needed If wound VAC fails, remove dressing. Irrigate with NSS. Lightly fill with Aquacel Ag. Cover with Optifoam. Change every other day and as needed. Please follow-up with wound clinic upon dischargecall for an appointment at [phone] glycemic control has been challenging and has had some low glucoses, pre hospital was on glyburide and metformin, now on ssi, as she continues to heal wound may consider transition to oral medications again Pending Studies at Discharge: No Stand-Alone Forms: My [facility] Skilled Items Patient informed of condition?: Yes DNR: No Discharge Level of Care: Skilled Communicable Disease: No Discharge Prognosis: Stable Lines: None Urinary Catheter: No Medications and DC Order Prescriptions: New metronidazole 500 mg Tablet 500 mg PO TID Qty: 60 RF: 0 enoxaparin [Lovenox] 30 mg/0.3 mL Syringe 30 mg subcut QAM Qty: 30 RF: 0 risperidone 0.5 mg tablet 0.5 mg PO HS Qty: 30 RF: 0 insulin aspart U-100 [Novolog U-100 Insulin aspart] 100 unit/mL Solution 1 unit SC 1130,1630,2100 Qty: 10 RF: 0 diclofenac sodium [Voltaren Arthritis Pain] 1 % Gel 2 g EXT TID Qty: 1 RF: 0 Advanced Probiotic 625 mg (10 billion cell) Capsule 2 cap PO DAILY Qty: 60 RF: 0 ascorbic acid (vitamin C) [Vitamin C] 500 mg Tablet 500 mg PO QAM Qty: 30 RF: 0 Cerovite Senior Tablet 1 tab PO QAM Qty: 30 RF: 0 thiamine HCl (vitamin B1) 100 mg tablet 100 mg PO DAILY Qty: 30 RF: 0 metronidazole 500 mg tablet 500 mg PO TID Qty: 60 RF: 0 ceftriaxone 2 gram recon soln 2 g IV DAILY Qty: 20 RF: 0 Continued carbidopa-levodopa 25-100 mg tablet 2 tab PO QID 30 Days Qty: 240 RF: 5 Discontinued cyanocobalamin (vitamin B-12) 2,500 mcg tablet 2,500 mcg PO DAILY RF: 0 cholecalciferol (vitamin D3) 1,000 unit capsule 1,000 units PO BID RF: 0 folic acid 800 mcg tablet 800 mcg PO BID RF: 0 pyridoxine (vitamin B6) 100 mg tablet 100 mg PO BID RF: 0 lisinopril 10 mg tablet 10 mg PO DAILY RF: 0 metformin 500 mg Tablet 500 mg PO BIDM RF: 0 glyburide 5 mg Tablet 5 mg PO BID RF: 0 simvastatin 40 mg tablet 40 mg PO QDD RF: 0 potassium 99 mg Tablet 495 mg PO BID RF: 0 bilberry 100 mg Capsule 200 mg PO BID RF: 0 cinnamon bark [Cinnamon] 500 mg Capsule 500 mg PO BID RF: 0 magnesium oxide 400 mg Capsule 400 mg PO BID RF: 0 Discharge Orders: Discharge Order (Routine); Ordered 06/19/21 Ordered By: Gigi Griffiths/Other Patient Handouts: Nutrition for Wound Healing, Managing Type 2 Maribel betes Admission Data Admit Date/Time: 04/18/21 15:44 Attending Provider: Gigi Blair Admit Provider: Charly Koenig Primary Care Provider: Edil Singh Other Providers: [facility] ; [facility] ; [facility] ; Nakul Thompson ; [facility] ; Edi Ramsey ; Edward Cardona ; Michelle Martínez ; Marlon Baez I. ; Josué Workman II ; Evelyn Rosenberg ; Earnest Cee ; Edwin Lai ; Eric Taylor ; [place],[facility], [place] Other Interventions: Discharge Summary Assessment (RN) Last Done: 06/19/21 12:03 Coding Level of Care Code D/C DAY MANAGEMENT >30 MINS Diagnoses Sacral decubitus ulcer, stage IV L89.154 Metabolic encephalopathy G93.41 Pneumonia due to COVID-19 virus U07.1; J12.82 Dizziness R42 Parkinsons disease G20 UTI (urinary tract infection) N39.0 Dysphagia R13.10 Hypernatremia E87.0 Diabetes E11.9 Rhabdomyolysis M62.82 Rhabdomyolysis type: non-traumatic Pressure injury of back, stage 2 L89.102 Chronic kidney disease, stage 3a N18.31 Antibiotic-associated diarrhea K52.1; T36.95XA
== END 2021-06-19 13:15 | DRG 166 ==
LOC: ED 13:06 → SUATTDRO 15:44 → EDINP 15:44 → 2E 04-19 02:56 → 2W 04-27 11:02 → 3W 05-05 02:20 → 3E 05-08 10:31

== ENCOUNTER 2024-01-01 07:32 | Inpatient (IN) ==
--- OUTSIDE RECORDS SUMMARY | 2024-01-01 07:38 | External Medical Summary | Continuity Of Care Document ---
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 Dizziness and giddiness 06/19/2021 A ctive G20. Parkinson's disease 06/19/2021 Activ e N39.0 Urinary tract infection, site not specified Active E87.0 Hyperosmolality and hypernatremia 06/19/2021 Active E11.9 Type 2 diabetes mellitus without complications 06/19/2021 Active M62.82 Rhabdomyolysis 06/19/2021 Active T36.95XA Adverse effect of un specified systemic antibiotic, initial encounter 06/19/2021 Active N18.31 Chronic kidney disease, stage 3a 06/19/2021 Active R13.12 Dysphagia, oropharyngeal phase 07/29/2022 Active R26.2 Difficulty in walking, not elsewhere classified 07/06/2023 Active R13.11 Dysphagia, oral phase 06/26/2021 Act kathrin M62.81 Muscle weakness (generalized) 07/08/2023 Active R26.9 Unspecified abnormalities of gait and mobility 06/26/2021 Active Z74.1 Need for assistance with personal care 06/26/19 Active R26.89 Other abnormalities of gait and mobility 2023 Active VITAL SIGNS Date Time Diastolic blood pressure Systolic blood pressure Body height Body weight Temperature SpO2 Blood Sugar Pulse Respirations 49913 206 15900 6 131.00 NI 98.20 Axillary 83416 206 89964 3 65.00 mm[Hg] - Sitting 136.00 mm[Hg] - Sitting 72.00/ min Immunizations Vaccine Date Status COVID-19 05/19/2021 Completed COVID-19 11/06/2021 Completed COVID-19 03/05/2022 Completed COVID-19 03/23/2023 Other Influenza 05/04/2021 Completed Influenza 03/15/2022 Completed Influenza 05/18/2023 Completed (PCV13)Pneumococcal 07/14/2022 Completed (PPSV23)Pneumococcal 05/04/2021 Completed
--- OUTSIDE RECORDS SUMMARY | 2024-01-01 07:38 | External Medical Summary | Continuity Of Care Document ---
Author Name Unknown Address [address] [place] [address] Organization [facility] ( ) Care Team Providers Care Energy Broker Name Role Phone Lyly Mcneal Primary Care Provider [phone] Problems Code Description Start Date End Date [...] R26.2 Difficulty in walking, not elsewhere classified 09/23/2021 Active R13.11 Dysphagia, oral phase 06/26/2021 Act kathrin M62.81 Muscle weakness (generalized) 07/08/2023 Active R26.9 Unspecified abnormalities of gait and mobility 06/26/2021 Active Z74.1 Need for assistance with personal care 06/26/19 Active R26.89 Other abnormalities of gait and mobility 2021 Active VITAL SIGNS Date Time Diastolic blood pressure Systolic blood pressure Body height Body weight Temperature SpO2 Blood Sugar Pulse Respirations 10299 206 62302 6 131.00 NI 98.20 Axillary 27628 206 51130 3 65.00 mm[Hg] - Sitting 136.00 mm[Hg] - Sitting 72.00/ min Immunizations Vaccine Date Status COVID-19 05/19/2021 Completed COVID-19 11/06/2021 Completed COVID-19 03/05/2022 Completed COVID-19 03/23/2023 Other Influenza 05/04/2021 Completed Influenza 03/15/2022 Completed Influenza 05/18/2023 Completed (PCV13)Pneumococcal 07/14/2022 Completed (PPSV23)Pneumococcal 05/04/2021 Completed
--- OUTSIDE RECORDS SUMMARY | 2024-01-01 07:38 | External Medical Summary | Continuity Of Care Document ---
Author Name Unknown Address [address] [place] [address] Organization [facility] ( ) Care Team Providers Care Mc Kay Stitcher Name Role Phone Lyly Mcneal Primary Care Provider [phone] Problems Code Description Start Date End Date [...] abnormalities of gait and mobility 2023 Active M62.81 Muscle weakness (generalized) 10/21/2023 Active R13.11 Dysphagia, oral phase 12/13/2023 Act kathrin VITAL SIGNS Date Time Diastolic blood pressure Systolic blood pressure Body height Body weight Temperature SpO2 Blood Sugar Pulse Respirations 710 92800 6 76.00 mm[Hg] - Sitting 134.00 mm[Hg] - Sitting 97.60 Oral 96.00 % 109.00 /min 18.00/min 65150 711 24625 1 85.00 mm[Hg] - Sitting 134.00 mm[Hg] - Sitting 98.00 Oral 92.00 % 79.00/ min 18.00/min 82484 711 97331 4 83.00 mm[Hg] - Sitting 134.00 mm[Hg] - Sitting 98.50 Oral 97.00 % 85.00/ min 18.00/min 34266 806 39504 1 122.00 NI Immunizations Vaccine Date Status COVID-19 05/19/2021 Completed COVID-19 11/06/2021 Completed COVID-19 03/05/2022 Completed COVID-19 03/23/2023 Other Influenza 05/04/2021 Completed Influenza 03/15/2022 Completed Influenza 05/18/2023 Completed (PCV13)Pneumococcal 07/14/2022 Completed Other 08/19/2023 Completed (PPSV23)Pneumococcal 05/04/2021 Completed
--- OUTSIDE RECORDS SUMMARY | 2024-01-01 07:38 | External Medical Summary | Continuity Of Care Document ---
Author Name Unknown Address [address] [place] [address] Organization [facility] ( ) Care Team Providers Care Credit Negotiator Name Role Phone Lyly Mcneal Primary Care Provider [phone] Problems Code Description Start Date End Date [...] weight Temperature SpO2 Blood Sugar Pulse Respirations 12734 305 44499 7 80.00 mm[Hg] - Sitting 134.00 mm[Hg] - Sitting 130.00 NI 98.40 Ear 68.00/ min Immunizations Vaccine Date Status COVID-19 05/19/2021 Completed COVID-19 11/06/2021 Completed COVID-19 03/05/2022 Completed COVID-19 03/23/2023 Other Influenza 05/04/2021 Completed Influenza 03/15/2022 Completed Influenza 05/18/2023 Completed (PCV13)Pneumococcal 07/14/2022 Completed (PPSV23)Pneumococcal 05/04/2021 Completed
--- OUTSIDE RECORDS SUMMARY | 2024-01-01 07:38 | External Medical Summary | Continuity Of Care Document ---
Author Name Unknown Address [address] [place] [address] Organization [facility] ( ) Care Team Providers Care Camp Recreation Specialist Name Role Phone Lyly Mcneal Primary Care Provider [phone] Problems Code Description Start Date End Date [...] Active M62.81 Muscle weakness (generalized) 10/21/2023 Active VITAL SIGNS Date Time Diastolic blood pressure Systolic blood pressure Body height Body weight Temperature SpO2 Blood Sugar Pulse Respirations 06936 528 85039 6 66.00 mm[Hg] - Sitting 105.00 mm[Hg] - Sitting 98.70 Oral 95.00 % 109.00 /min 18.00/min 08963 528 27127 0 97.80 Oral 96.00 % 214.00 mg/dL 93900 603 25761 0 94.00 mm[Hg] - Sitting 152.00 mm[Hg] - Sitting 98.90 Oral 95.00 % 99.00/ min 18.00/min 51934 604 01203 7 65.00 mm[Hg] - Sitting 112.00 mm[Hg] - Sitting 128.00 NI 97.90 Ear 63.00/ min 33697 606 67838 7 82.00 mm[Hg] - Sitting 138.00 mm[Hg] - Sitting 97.70 Oral 95.00 % 57.00/ min 18.00/min 64346 611 18344 4 97.60 Oral 15600 611 16586 4 97.10 Oral 56810 611 30932 3 98.10 Ear 14091 612 17087 3 98.10 Oral 53979 612 35689 0 98.80 Ear 31871 613 70562 0 97.40 Ear 82109 614 77255 9 98.10 Ear 40741 615 71880 2 97.90 Oral 66996 615 66020 0 97.50 Ear 37303 616 42198 0 97.80 Ear 42807 617 10172 5 97.40 Oral 46380 617 51532 0 98.00 Oral Immunizations Vaccine Date Status COVID-19 05/19/2021 Completed COVID-19 11/06/2021 Completed COVID-19 03/05/2022 Completed COVID-19 03/23/2023 Other Influenza 05/04/2021 Completed Influenza 03/15/2022 Completed Influenza 05/18/2023 Completed (PCV13)Pneumococcal 07/14/2022 Completed Other 08/19/2023 Completed (PPSV23)Pneumococcal 05/04/2021 Completed
--- OUTSIDE RECORDS SUMMARY | 2024-01-01 07:38 | External Medical Summary | Continuity Of Care Document ---
Author Name Unknown Address [address] [place] [address] Organization [facility] ( ) Care Team Providers Care Resource Room Teacher Name Role Phone Lyly Mcneal Primary Care Provider [phone] Problems Code Description Start Date End Date [...] Temperature SpO2 Blood Sugar Pulse Respirations 710 30604 6 76.00 mm[Hg] - Sitting 134.00 mm[Hg] - Sitting 97.60 Oral 96.00 % 109.00 /min 18.00/min 47461 711 21597 1 85.00 mm[Hg] - Sitting 134.00 mm[Hg] - Sitting 98.00 Oral 92.00 % 79.00/ min 18.00/min 17131 711 09237 4 83.00 mm[Hg] - Sitting 134.00 mm[Hg] - Sitting 98.50 Oral 97.00 % 85.00/ min 18.00/min 56130 806 73806 1 122[place]00 [place] [address] 806 46273 5 79.00 mm[Hg] - Sitting 129.00 mm[Hg] - Sitting 96.80 Oral 73.00/ min 22018 807 08547 2 122.00 NI Immunizations Vaccine Date Status COVID-19 05/19/2021 Completed COVID-19 11/06/2021 Completed COVID-19 03/05/2022 Completed COVID-19 03/23/2023 Other Influenza 05/04/2021 Completed Influenza 03/15/2022 Completed Influenza 05/18/2023 Completed (PCV13)Pneumococcal 07/14/2022 Completed Other 08/19/2023 Completed (PPSV23)Pneumococcal 05/04/2021 Completed
--- OUTSIDE RECORDS SUMMARY | 2024-01-01 07:38 | External Medical Summary | Continuity Of Care Document ---
Author Name Unknown Address [address] [place] [address] Organization [facility] ( ) Care Team Providers Care Rail Switchman Name Role Phone Lyly Mcneal Primary Care Provider [phone] Problems Code Description Start Date End Date [...] 06/26/2021 Act kathrin M62.81 Muscle weakness (generalized) 06/26/2021 Active R26.9 Unspecified abnormalities of gait and mobility 06/26/2021 Active Z74.1 Need for assistance with personal care 06/26/19 Active R26.89 Other abnormalities of gait and mobility 2021 Active VITAL SIGNS Date Time Diastolic blood pressure Systolic blood pressure Body height Body weight Temperature SpO2 Blood Sugar Pulse Respirations 16917 206 33019 6 131.00 NI 98.20 Axillary 23883 206 43327 3 65.00 mm[Hg] - Sitting 136.00 mm[Hg] - Sitting 72.00/ min Immunizations Vaccine Date Status COVID-19 05/19/2021 Completed COVID-19 11/06/2021 Completed COVID-19 03/05/2022 Completed Influenza 05/04/2021 Completed Influenza 03/15/2022 Completed Influenza 05/18/2023 Completed (PCV13)Pneumococcal 07/14/2022 Completed (PPSV23)Pneumococcal 05/04/2021 Completed
--- OUTSIDE RECORDS SUMMARY | 2024-01-01 07:38 | External Medical Summary | Continuity Of Care Document ---
Author Name Unknown Address [address] [place] [address] Organization [facility] ( ) Care Team Providers Care Flower Machine Operator Name Role Phone Lyly Mcneal Primary Care Provider [phone] Problems Code Description Start Date End Date [...] weight Temperature SpO2 Blood Sugar Pulse Respirations 77229 402 70370 0 68.00 mm[Hg] - Sitting 130.00 mm[Hg] - Sitting 131.00 NI 97.00 Ear 68.00/ min Immunizations Vaccine Date Status COVID-19 05/19/2021 Completed COVID-19 11/06/2021 Completed COVID-19 03/05/2022 Completed COVID-19 03/23/2023 Other Influenza 05/04/2021 Completed Influenza 03/15/2022 Completed Influenza 05/18/2023 Completed (PCV13)Pneumococcal 07/14/2022 Completed Other 08/19/2023 Completed (PPSV23)Pneumococcal 05/04/2021 Completed
--- NOTE | 2024-01-01 07:54 | Emergency Department Note ---
Impression & Plan Seizure, Fall, Closed hip fracture, Elevated troponin ED Provider Note NAME: PAULA SANCHEZ AGE: 78 SEX: F : 1945 ARRIVES VIA: Ambulance INFORMANT: [nursing, ems] ED PROVIDER(S): [Edy Mai MD] CHIEF COMPLAINT: Seizure HISTORY OF PRESENT ILLNESS: The patient is an 78-year-old female with dementia. She had by report, a 30 seconds to 1 minute tonic-clonic seizure event prior to arrival. Blood sugar as per EMS was 258. Since the seizure activity, she has been less mentally alert. The patient has no seizure history. As per EMS, patient's initial O2 saturation was 87%. This has improved and she is now maintaining an adequate O2 saturation on just room air. No history obtainable from the patient given the situation. Of note, the patient apparently fell yesterday, no trauma reported. PMHx/PSHx/Social Hx: See Below PHYSICAL EXAM: GENERAL: Patient is in no acute distress. HEENT: No acute trauma, normocephalic atraumatic, mucous membranes moist, no nasal congestion. Pupils equal and reactive to light. NECK: No stridor, no adenopathy, no meningismus, trachea is midline. LUNGS: Clear to auscultation bilaterally, no wheeze, no rhonchi, breath sounds equal. HEART: 2/6 systolic murmur, regular rate and rhythm. ABDOMEN: Soft, nontender, no peritonitis. EXTREMITIES: No cyanosis. The patient does have a 5 to 6 cm fullness/hematoma to the right anterior groin. This area does seem a bit tender with palpation and there is some pain with movement of the right hip. There is no right lower extremity deformity. NEUROLOGIC: Awake but somnolent, confused, no acute motor or sensory deficits, no focal weakness. SKIN: No jaundice, no diaphoresis. DIFFERENTIAL DIAGNOSIS: Seizure, intracranial bleeding, dehydration, electrolyte imbalance, dysrhythmia, among others. EMERGENCY DEPARTMENT PROCEDURES: Nasal airway insertion: This procedure was performed by me. Using some lubrication, a nasal airway was inserted on the right. This was done without complication. MEDICAL DECISION MAKING: There is no leukocytosis or concerning anemia. There is a normal platelet count. No coagulopathy. No renal failure or significant electrolyte abnormality. There were some subtle liver enzyme elevations. The patient appeared to be in a euthyroid state. Prolactin level was quite elevated consistent with seizure activity. Urinalysis did not show infection. COVID test was negative. Chest film showed some chronic change, no pneumonia or CHF. Brain CT showed atrophy and some subacute to chronic CVA findings, no acute intracranial bleeding. ECG showed a sinus rhythm, there was no acute ischemic change. Cardiac enzyme testing x 1 was slightly elevated. This troponin elevation could be secondary to cardiac injury or just mismatch from her seizure activity. The patient had a second short-lived tonic-clonic seizure while here in the ED. Prior to administration of Ativan, the seizure spontaneously resolved. A milligram of Ativan was given IV though to prevent seizure recurrence. The patient was given 1500 mg of IV Keppra. She was given a 500 cc saline bolus. I did place a nasal airway. This was done as the patient had some snoring after the Ativan was administered. During the patient stay, the right lower extremity did start to demonstrate some shortening and external rotation. Films of the right femur and right pelvis showed a right intertrochanteric hip fracture. The patient presents with new onset seizure. She has had 2 seizure events. No further seizure activity reported since administration of Ativan and Keppra. The patient is in need of a hospital stay. I did speak with case management and the on-call hospitalist. I did speak with the on-call orthopedist. Prior/Outside records/notes reviewed: Today's EMS notes describing her presentation and transport to this hospital. ECG per my interpretation: Indication was seizure. The ECG shows a sinus rhythm with a first-degree AV block. The rate is 94. There is no acute ST elevation, no PVCs. QTc is 475. Continuous Cardiac Monitoring per my interpretation: An order was placed for continuous cardiac monitoring. The monitor shows a rate of 90 with normal sinus rhythm. Imaging/x-ray results per my interpretation: Chest x-ray does not show pneumonia or CHF. Right hip and femur films show a right intertrochanteric femur fracture. Chronic Medical/Social conditions affecting care: History of dementia, [facility] patient. Care/Management discussed with: Case management, the on-call hospitalist. Orthopedics-Dr. Bonds Level of care consideration(s): After review of the information above and other included data: --I believe the patient requires escalation of care to admission Critical Care Note: I have personally spent 52 minutes of critical care time in the direct management of this patient. This includes bedside care, interpretation of diagnostic studies, and testing, discussion with consultants, patient, and family members, and other required patient management activities. This 52 minutes is in excess of all separately billable procedures. DISPOSITION: Admission Past Med/Surg History Problem List (Updated 01/01/24 @ 10:33 by Edy Mai MD) Elevated troponin (Acute) Closed hip fracture (Acute) Fall (Acute) Seizure (Acute) Encounter for wound care (Acute) Abscess of buttock Encounter for pre-operative examination Dysphagia Resolved per 06/19/21 discharge summary Dizziness 05/2021 per records Per 06/19/21 Discharge summary- no focal deficit concerning for CVA- likely orthostatic hypotension vs BPPV Metabolic encephalopathy Resolved per records COVID Increased anion gap metabolic acidosis Rhabdomyolysis 2019 novel coronavirus-infected pneumonia (NCIP) (Acute) Rhabdomyolysis (Acute) Acute dehydration (Acute) Pressure injury of back, stage 2 Hypernatremia Hypokalemia UTI (urinary tract infection) Pneumonia due to COVID-19 virus Urinary retention Antibiotic-associated diarrhea Surgical wound, non healing (Acute) Cough (Acute) Wheezing (Acute) Confusion (Acute) Chronic kidney disease, stage 3a Sacral decubitus ulcer, stage IV (Acute) S/p debridement 05/22/21 and 06/20/21 per records Following with wound clinic HLD (hyperlipidemia) Diabetes Parkinsons disease (Chronic) Stable per records Medical History Atrial flutter Per [facility] records- 03/2021 while admitted for Covid- started on heparin drip- treated with Metoprolol No mention of a flutter per 06/19/21 discharge summary- no EKGs showing a flutter while admitted from 03/2021 to 05/2021 HTN (hypertension) Weakness Generalized Disorientation Covid encephalopathy 03/2021 per records - returned to baseline on discharge per records Resolved per 06/19/21 Discharge Summary History of COVID-19 Positive Covid test 03/2021 per records- admitted to [facility] Covid pneumonia while admitted 03/2021 to 05/2021- resolved Covid pneumonia per 06/19/21 discharge summary Surgical History (Updated 10/01/21 @ 12:10 by Jennyfer Lester RN) S/P debridement (09/30/21) Excisional Debridement of Sacral Decubitus Ulcer 5cm x 4cm down to bone - [place] DO History of dilation and curettage History of back surgery Family History Family/Other Heart disease Mother No pertinent family history Father No pertinent family history Social History Smoking Status: Never smoker Second Hand Exposure: No; Do You Dip or Chew Tobacco: No; Hx Alcohol Use: No Hx Substance Use: No Preferred Language: Maltese Communication Ability: Effective Gear Grinder Required: No Beliefs That Will Affect Care: None marital status: Current Living Situation: Senior Care current occupational status: employed How many Children do You have: 3 Feels Safe at Home: Yes Assistive Devices: Denture - Upper, Denture - Lower and Wheelchair Allergies Allergies Allergy/AdvReac Type Severity Reaction Status Date / Time bee venom protein (honey bee) Allergy Unknown Unknown Verified 06/30/22 14:18 latex Allergy Unknown Unknown Verified 06/30/22 14:18 Sulfa (Sulfonamide Allergy Unknown Unknown Verified 06/30/22 14:18 Antibiotics) Home Meds Home Medications Medication Instructions Recorded Confirmed Cerovite Senior See Rx Instructions .Route .COMPLEX 09/29/21 06/30/22 Fleet Enema See Rx Instructions .Route .COMPLEX 09/29/21 06/30/22 Milk of Magnesia See Rx Instructions .Route .COMPLEX 09/29/21 06/30/22 carbidopa 25 mg-levodopa 100 mg See Rx Instructions .Route .COMPLEX 09/29/21 06/30/22 tablet metformin 1,000 mg tablet 1,000 mg PO BID 09/29/21 06/30/22 acetaminophen 325 mg capsule 650 mg PO QID PRN Pain 09/30/21 06/30/22 bisacodyl 10 mg rectal suppository 10 mg CO DAILY PRN Constipation 09/30/21 06/30/22 (Dulcolax (bisacodyl)) donepezil 5 mg tablet 5 mg PO DAILY 11/20/21 06/30/22 furosemide 20 mg tablet 20 mg PO DAILY 11/20/21 06/30/22 insulin aspart U-100 100 unit/mL See Rx Instructions .Route .COMPLEX 12/24/21 06/30/22 (3 mL) subcutaneous pen (Novolog FlexPen U-100 Insulin aspart) Previous Rx's Medication Instructions Recorded L.acidop,casei,lactis,rham-B.lact,salbador 2 cap PO DAILY #60 caps 06/19/21 625 mg (10 billion cell) capsule (Advanced Probiotic) Results & Data (ED) Vital Signs Vital Signs - 24 hr 01/01/24 07:02 01/01/24 07:40 01/01/24 08:15 Temperature Temperature Source Pulse Rate 92 H Pulse Rate [Apical] 91 H Pulse Rhythm Pulse Rhythm [Apical] Regular Pulse Strength Pulse Strength [Apical] Normal Respiratory Rate 14 Respiratory Effort / Characteristics Non-Labored Spontaneous Respiratory Depth Shallow Respiratory Pattern Regular Blood Pressure Blood Pressure [Left Arm] 164/125 H Blood Pressure Mean Blood Pressure Mean [Left Arm] 138 Blood Pressure Position Blood Pressure Position [Left Arm] Lying Pulse Oximetry 90 97 Oxygen Delivery Method Nasal Cannula Nasal Cannula Oxygen Flow Rate 0 2 Sepsis Recent Fever Within 48 Hours Sepsis New/Unexplained Change in Mental Status Sepsis Action Taken by Nursing Oxygen Flow Rate - Titration 2 Pulse Oximetry Post Tiitration 96 01/01/24 08:25 01/01/24 08:27 01/01/24 08:30 Temperature Temperature Source Pulse Rate Pulse Rate [Apical] 118 H Pulse Rhythm Pulse Rhythm [Apical] Regular Pulse Strength Pulse Strength [Apical] Normal Respiratory Rate 25 H Respiratory Effort / Characteristics Non-Labored Spontaneous Respiratory Depth Shallow Respiratory Pattern Regular Blood Pressure Blood Pressure [Left Arm] 195/93 H Blood Pressure Mean Blood Pressure Mean [Left Arm] 127 Blood Pressure Position Blood Pressure Position [Left Arm] Lying Pulse Oximetry 65 L 65 L 100 Oxygen Delivery Method Nasal Cannula Nasal Cannula Non-rebreather Non-rebreather Oxygen Flow Rate 2 6 15 Sepsis Recent Fever Within 48 Hours Sepsis New/Unexplained Change in Mental Status Sepsis Action Taken by Nursing Oxygen Flow Rate - Titration 6 15 Pulse Oximetry Post Tiitration 65 L 98 01/01/24 08:48 01/01/24 08:59 01/01/24 09:00 Temperature 36.8 C Temperature Source Rectal Pulse Rate 90 90 Pulse Rate [Apical] 103 H Pulse Rhythm Regular Regular Pulse Rhythm [Apical] Regular Pulse Strength Normal Pulse Strength [Apical] Normal Respiratory Rate 16 16 20 Respiratory Effort / Characteristics Non-Labored Spontaneous Non-Labored Spontaneous Respiratory Depth Shallow Shallow Respiratory Pattern Regular Regular Blood Pressure 178/83 H Blood Pressure [Left Arm] 168/90 H Blood Pressure Mean 114 Blood Pressure Mean [Left Arm] 116 Blood Pressure Position Semi-fowlers Blood Pressure Position [Left Arm] Lying Pulse Oximetry 90 90 100 Oxygen Delivery Method Room Air Room Air Non-rebreather Oxygen Flow Rate 15 Sepsis Recent Fever Within 48 Hours No Sepsis New/Unexplained Change in Mental Status Yes Sepsis Action Taken by Nursing No Action Required Oxygen Flow Rate - Titration Pulse Oximetry Post Tiitration 01/01/24 09:30 01/01/24 10:00 01/01/24 10:23 Temperature Temperature Source Pulse Rate Pulse Rate [Apical] 110 H 113 H 116 H Pulse Rhythm Pulse Rhythm [Apical] Regular Regular Regular Pulse Strength Pulse Strength [Apical] Normal Normal Normal Respiratory Rate 20 20 20 Respiratory Effort / Characteristics Non-Labored Spontaneous Non-Labored Spontaneous Non-Labored Spontaneous Respiratory Depth Shallow Shallow Shallow Respiratory Pattern Regular Regular Regular Blood Pressure Blood Pressure [Left Arm] 159/99 H 190/98 H 178/106 H Blood Pressure Mean Blood Pressure Mean [Left Arm] 119 128 130 Blood Pressure Position Blood Pressure Position [Left Arm] Lying Lying Lying Pulse Oximetry 100 100 97 Oxygen Delivery Method Non-rebreather Non-rebreather Nasal Cannula Oxygen Flow Rate 15 4 Sepsis Recent Fever Within 48 Hours Sepsis New/Unexplained Change in Mental Status Sepsis Action Taken by Nursing Oxygen Flow Rate - Titration Pulse Oximetry Post Tiitration Home Medications Current Medication List: was personally reviewed by me Laboratory Data Attestation: I reviewed the patient's lab results. 01/01/24 08:11 01/01/24 08:11 Lab Results 01/01/24 01/01/24 01/01/24 Range/Units 07:44 07:57 08:11 WBC 10.60 (4.8-10.8) K/ul RBC 4.41 (4.20-5.40) M/uL Hgb 13.0 (12.0-16.0) g/dl Hct 39.3 (37.0-47.0) % MCV 89.1 (80.0-100.0) fL MCH 29.5 (25.0-34.0) pg MCHC 33.1 (32.0-36.0) g/dL RDW Std Deviation 43.8 (36.4-46.3) fL RDW Coeff of Ilan 13.3 (11.5-14.5) % Plt Count 170 (130-400) K/uL MPV 11.2 (9.4-12.4) fL Immature Gran % (Auto) 0.7 % Neut % (Auto) 81.4 % Lymph % (Auto) 12.0 % [place] % (Auto) 5.1 % Eos % (Auto) 0.6 % Baso % (Auto) 0.2 % Neut # (Auto) 8.64 H (1.40-6.50) K/uL Lymph # (Auto) 1.27 (1.20-3.40) K/uL Beadle # (Auto) 0.54 (0.11-0.59) K/uL Eos # (Auto) 0.06 (0.00-0.50) K/uL Baso # (Auto) 0.02 (0.00-0.20) K/uL Immature Gran # (Auto) 0.07 (0.01-0.20) K/uL PT Cancelled INR Cancelled APTT Cancelled PTT Ratio Cancelled Sodium 139 (136-145) mmol/L Potassium 4.0 (3.5-5.1) mmol/L Chloride 101 (98-107) mmol/L Carbon Dioxide 25 (21-32) mmol/L Anion Gap 13 H (3-11) BUN 19 (6-23) mg/dl Creatinine 1.01 (0.6-1.2) mg/dl Est Cr Clr Drug Dosing 35.1 ml/min Est GFR ( Amer) 60.9 ml/min Est GFR (Non-Af Amer) 52.5 ml/min BUN/Creatinine Ratio 18.8 (10-20) Glucose 281 H (70-99(Fasting)) mg/dl POC Glucose 257 H (70-99) mg/dl Calcium 9.6 (8.6-10.3) mg/dl Magnesium 1.7 (1.7-2.4) mg/dl Total Bilirubin 1.1 H (0.2-1.0) mg/dl AST 33 (13-39) U/L ALT 23 (7-52) U/L Alkaline Phosphatase 117 H (34-104) U/L Troponin I High Sens 262.6 H* (0-14) pg/ml Total Protein 7.0 (6.0-8.3) gm/dl Albumin 4.4 (3.4-5.0) gm/dl Globulin 2.6 (2.5-4.0) gm/dl Albumin/Globulin Ratio 1.7 (0.9-2) TSH 2.361 (0.300-4.500) uIu/ml Prolactin 73.68 ng/ml Urine Color Yellow Urine Appearance Clear (Clear) Urine pH 7.5 (4.5-7.5) Ur Specific [place] 1.013 (1.000-1.030) Urine Protein Negative (Negative) Urine Glucose (UA) Negative (Negative) Urine Ketones Trace H (Negative) Urine Blood Negative (Negative) Urine Nitrite Negative (Negative) Urine Bilirubin Negative (Negative) Urine Urobilinogen Negative (Negative) Ur Leukocyte Esterase Negative (Negative) SARS-CoV-2, RNA, NAAT NEGATIVE (NEGATIVE) 01/01/24 Range/Units 09:13 WBC (4.8-10.8) K/ul RBC (4.20-5.40) M/uL Hgb (12.0-16.0) g/dl Hct (37.0-47.0) % MCV (80.0-100.0) fL MCH (25.0-34.0) pg MCHC (32.0-36.0) g/dL RDW Std Deviation (36.4-46.3) fL RDW Coeff of Ilan (11.5-14.5) % Plt Count (130-400) K/uL MPV (9.4-12.4) fL Immature Gran % (Auto) % Neut % (Auto) % Lymph % (Auto) % [place]eadle % (Auto) % Eos % (Auto) % Baso % (Auto) % Neut # (Auto) (1.40-6.50) K/uL Lymph # (Auto) (1.20-3.40) K/uL [place] # (Auto) (0.11-0.59) K/uL Eos # (Auto) (0.00-0.50) K/uL Baso # (Auto) (0.00-0.20) K/uL Immature Gran # (Auto) (0.01-0.20) K/uL PT 11.9 INR 1.1 APTT 23 PTT Ratio 0.9 Sodium (136-145) mmol/L Potassium (3.5-5.1) mmol/L Chloride (98-107) mmol/L Carbon Dioxide (21-32) mmol/L Anion Gap (3-11) BUN (6-23) mg/dl Creatinine (0.6-1.2) mg/dl Est Cr Clr Drug Dosing ml/min Est GFR ( Amer) ml/min Est GFR (Non-Af Amer) ml/min BUN/Creatinine Ratio (10-20) Glucose (70-99(Fasting)) mg/dl POC Glucose (70-99) mg/dl Calcium (8.6-10.3) mg/dl Magnesium (1.7-2.4) mg/dl Total Bilirubin (0.2-1.0) mg/dl AST (13-39) U/L ALT (7-52) U/L Alkaline Phosphatase (34-104) U/L Troponin I High Sens (0-14) pg/ml Total Protein (6.0-8.3) gm/dl Albumin (3.4-5.0) gm/dl Globulin (2.5-4.0) gm/dl Albumin/Globulin Ratio (0.9-2) TSH (0.300-4.500) uIu/ml Prolactin ng/ml Urine Color Urine Appearance (Clear) Urine pH (4.5-7.5) Ur Specific [place] (1.000-1.030) Urine Protein (Negative) Urine Glucose (UA) (Negative) Urine Ketones (Negative) Urine Blood (Negative) Urine Nitrite (Negative) Urine Bilirubin (Negative) Urine Urobilinogen (Negative) Ur Leukocyte Esterase (Negative) SARS-CoV-2, RNA, NAAT (NEGATIVE) Administered Medications Discontinued Medications Sodium Chloride (Nss) 500 mls @ 999 mls/hr IV .Q31M CHIKI Stop: 01/01/24 08:15 Last Admin: 01/01/24 08:20 Dose: 999 mls/hr Documented By: BRAEDEN Levetiracetam (Levetiracetam 500 Mg/5 Ml Vial) 1,500 mg IV NOW STA Stop: 01/01/24 07:42 Last Admin: 01/01/24 08:34 Dose: 1,500 mg Documented By: JLT Lorazepam (Lorazepam 1 Mg/1 Ml Syr Ed Inj Use) Confirm Administered Dose 1 mg .ROUTE .STK-MED ONE Stop: 01/01/24 08:29 Last Admin: 01/01/24 08:28 Dose: 1 mg Documented By: BRAEDEN Imaging Data Radiologist's Impression: Chest X-Ray 01/01/24 07:41 XR chest 1V portable CLINICAL HISTORY: weakness. Fall. COMPARISON STUDY: Chest radiograph May 28, 2021. FINDINGS: Mild elevation the right hemidiaphragm is unchanged. Lungs are clear. Calcified granulomas within the left lung are unchanged. These are benign. There is no pneumothorax or pleural effusion. Cardiac size is normal. Mediastinal contours are normal. There is no evidence for pulmonary edema. IMPRESSION: No acute cardiopulmonary findings. ACT 112: Negative or not required by law. Electronically signed by: Goran Costelol M.D. 01/01/2024 8:[address] 01/01/24 07:42 CT OF THE HEAD WITHOUT CONTRAST CLINICAL HISTORY: Seizure. COMPARISON STUDY: MRI of the brain May 07, 2021. Head CT May 20, 2021. CT DOSE: 975.47 mGy.cm TECHNIQUE: Helical axial images of the head were obtained without IV contrast. Automated exposure control was utilized for the study. A dose lowering technique was utilized adhering to the principles of ALARA. FINDINGS: This exam is mildly compromised by motion artifact. No acute intracranial hemorrhage, midline shift or mass effect is present. The ventricular system is unremarkable. The basal cisterns are patent. There are no extra-axial collections. White matter hypodensity suggests small vessel disease. A 7 mm hypodensity within the left internal capsule may also involve the anterior aspect of the left thalamus. This is new since prior head CT. A 2.5 x 1.4 cm hypodense focus within the lateral left cerebellar hemisphere on image 9 of 16 is also new since prior head CT. No calvarial fractures are identified. IMPRESSION: 1. No acute intracranial hemorrhage. Exam mildly compromised by motion artifact. 2. 2.5 x 1.4 cm hypodense focus within the left cerebellar hemisphere which is new since prior head CT. This favors an old infarct. 3. 7 mm hypodensity within the left internal capsule which is new since prior head CT. This favors a subacute to chronic infarct. 4. No calvarial fractures. ACT 112: Negative or not required by law. Electronically signed by: Goran Costello M.D. 01/01/2024 9:15 AM Femur X-Ray 01/01/24 07:57 XR femur RT 2V routine CLINICAL HISTORY: fall COMPARISON: Right hip and right knee radiographs May 20, 2021. FINDINGS: There is an acute comminuted mildly displaced intertrochanteric fracture of the right femur. No additional right femoral fracture is present. IMPRESSION: Acute comminuted mildly displaced intertrochanteric fracture of the right femur. ACT 112: Negative or not required by law. Electronically signed by: Goran Costello M.D. 01/01/2024 8:38 AM Pelvis X-Ray 01/01/24 07:57 XR pelvis 1-2V routine CLINICAL HISTORY: fall COMPARISON: Pelvis and right hip radiographs May 20, 2021. FINDINGS: Sacroiliac joints and symphysis pubis are intact. There is an acute comminuted mildly displaced intertrochanteric fracture of the right femur. No additional fractures. Proximal left femur is intact. IMPRESSION: Acute comminuted displaced intertrochanteric fracture of the right femur. ACT 112: Negative or not required by law. Electronically signed by: Goran Costello M.D. 01/01/2024 8:35 AM Discharge Plan Visit Data Chief Complaint: Seizure ED Provider: Edy Mai Discharge Problem: Seizure, Fall, Closed hip fracture, Elevated troponin Patient Disposition: Admitted As Inpatient Condition: Serious Forms Stand Alone Forms: [facility] Prescriptions Prescriptions: No Action donepezil 5 mg tablet 5 mg PO DAILY furosemide 20 mg tablet 20 mg PO DAILY metformin 1,000 mg Tablet 1,000 mg PO BID Cerovite See Rx Instructions .ROUTE .COMPLEX Rx Instructions: Take 1 tablet daily carbidopa-levodopa 25-100 mg tablet See Rx Instructions .ROUTE .COMPLEX Rx Instructions: Take two tablets in the AM Take 1 tablet in the afternoon and evening Take 2 tablets q HS Fleet Enema See Rx Instructions .ROUTE .COMPLEX Rx Instructions: As needed for BM Milk of Magnesia See Rx Instructions .ROUTE .COMPLEX Rx Instructions: Take as needed for constipation acetaminophen 325 mg Capsule 650 mg PO QID PRN (Reason: Pain) bisacodyl [Dulcolax (bisacodyl)] 10 mg Suppository 10 mg CO DAILY PRN (Reason: Constipation) insulin aspart U-100 [Novolog FlexPen U-100 Insulin] 100 unit/mL (3 mL) insulin pen See Rx Instructions .ROUTE .COMPLEX Rx Instructions: Take 8 units with supper Take 12 units with breakfast and lunch Hold if eats <25% or if glucose is <120 Advanced Probiotic 625 mg (10 billion cell) Capsule 2 cap PO DAILY Qty: 60 0RF Referrals Referrals: Lyly Mcneal MD [Primary Care Provider] - Discharge Problem: Fall Qualifiers: Encounter type: initial encounter Qualified Code(s): W19.XXXA - Unspecified fall, initial encounter Closed hip fracture Qualifiers: Encounter type: initial encounter Laterality: right Qualified Code(s): S72.001A - Fracture of unspecified part of neck of right femur, initial encounter for closed fracture
[2024-01-01] MEDS: SODIUM CHLORIDE 0.9% 500 ML IV SCH (08:20)
[2024-01-01] MEDS: LORazepam 1 MG/1 ML SYR ED Inj Use ONE (08:28)
[2024-01-01 08:32] LABS: Basophils # (auto) 0.02 K/uL (0.00-0.20); Basophils % (auto) 0.2 %; Eosinophils # (auto) 0.06 K/uL (0.00-0.50); Eosinophils % (auto) 0.6 %; Hematocrit (blood only) 39.3 % (37.0-47.0); Immature Granulocytes # (auto) 0.07 K/uL (0.01-0.20); Immature Granulocytes % (auto) 0.7 %; Lymphocytes # (auto) 1.27 K/uL (1.20-3.40); Mean Corpuscular Hemoglobin 29.5 pg (25.0-34.0); Mean Corpuscular Hgb Conc 33.1 g/dL (32.0-36.0); Mean Corpuscular Volume 89.1 fL (80.0-100.0); Mean Platelet Volume 11.2 fL (9.4-12.4); Monocytes # (auto) 0.54 K/uL (0.11-0.59); Monocytes % (auto) 5.1 %; Neutrophils # (auto) 8.64 K/uL (1.40-6.50); Neutrophils % (auto) 81.4 %; Platelet Count 170 K/uL (130-400); RDW Coefficient of Variation 13.3 % (11.5-14.5); RDW Standard Deviation 43.8 fL (36.4-46.3); Red Blood Count 4.41 M/uL (4.20-5.40)
[2024-01-01 08:34] LABS: Appearance Urine Clear (Clear); Bilirubin Urine Negative (Negative); Blood Urine Negative (Negative); Color Urine Yellow; Glucose Urine UA Negative (Negative); Ketones Urine Trace (Negative); Leukocyte Esterase Urine Negative (Negative); Nitrite Urine Negative (Negative); Protein Urine Negative (Negative); Specific Gravity Urine 1.013 (1.000-1.030); Urobilinogen Urine Negative (Negative); pH Urine 7.5 (4.5-7.5)
[2024-01-01] MEDS: levETIRAcetam 500 MG/5 ML VIAL IV STA (08:34)
--- NOTE | 2024-01-01 08:36 | XRay Report ---
XR pelvis 1-2V routine CLINICAL HISTORY: fall COMPARISON: Pelvis and right hip radiographs May 20, 2021. FINDINGS: Sacroiliac joints and symphysis pubis are intact. There is an acute comminuted mildly disp laced intertrochanteric fracture of the right femur. No additional fractures. Proximal left femur is intact. IMPRESSION: Acute comminuted displaced intertrochanteric fracture of the right femur. ACT 112: Negative or not required by law. Electronically signed by: Goran Costello M.D. 01/01/2024 8:35 AM
--- NOTE | 2024-01-01 08:38 | XRay Report ---
XR chest 1V portable CLINICAL HISTORY: weakness. Fall. COMPARISON STUDY: Chest radiograph May 28, 2021. FINDINGS: Mild elevation the right hemidiaphragm is unchanged. Lungs are clear. Calcified granulomas within the left lung are unchanged. These are benign. There is no pneumothorax or pleural effusion. C ardiac size is normal. Mediastinal contours are normal. There is no evidence for pulmonary edema. IMPRESSION: No acute cardiopulmonary findings. ACT 112: Negative or not required by law. Electronically signed by: Goran Costello M.D. 01/01/2024 8:37 AM
--- NOTE | 2024-01-01 08:39 | XRay Report ---
XR femur RT 2V routine CLINICAL HISTORY: fall COMPARISON: Right hip and right knee radiographs May 20, 2021. FINDINGS: There is an acute comminuted mildly displaced intertrochanteric fracture of the right femu r. No additional right femoral fracture is present. IMPRESSION: Acute comminuted mildly displaced intertrochanteric fracture of the right femur. ACT 112: Negative or not required by law. Electronically signed by: Goran Costello M.D. 01/01/2024 8:38 AM
[2024-01-01 09:00] LABS: Albumin Globulin Ratio 1.7 (0.9-2); Albumin Level 4.4 gm/dl (3.4-5.0); BUN Creatinine Ratio 18.8 (10-20); Bilirubin,Total 1.1 mg/dl (0.2-1.0); Calcium 9.6 mg/dl (8.6-10.3); Creatinine Clr Calc Pharmacy 35.1 ml/min; Est GFR (African American) 60.9 ml/min; Est GFR (Non-African American) 52.5 ml/min; Globulin 2.6 gm/dl (2.5-4.0); Magnesium 1.7 mg/dl (1.7-2.4)
[2024-01-01 09:15] LABS: Thyroid Stimulating Hormone 2.361 uIu/ml (0.300-4.500)
[2024-01-01 09:16] LABS: Troponin I High Sensitivity 262.6 pg/ml (0-14)
--- NOTE | 2024-01-01 09:17 | CT Scan Report ---
CT OF THE HEAD WITHOUT CONTRAST CLINICAL HISTORY: Seizure. COMPARISON STUDY: MRI of the brain May 07, 2021. Head CT May 20, 2021. CT DOSE: 975.47 mGy.cm TECHNIQUE: Helical axial images of the head were obtained without IV contrast. Automated exposure con trol was utilized for the study. A dose lowering technique was utilized adhering to the principles o f ALARA. FINDINGS: This exam is mildly compromised by motion artifact. No acute intracranial hemorrhage, midli ne shift or mass effect is present. The ventricular system is unremarkable. The basal cisterns are pa tent. There are no extra-axial collections. White matter hypodensity suggests small vessel disease. A 7 mm hypodensity within the left internal capsule may also involve the anterior aspect of the left t halamus. This is new since prior head CT. A 2.5 x 1.4 cm hypodense focus within the lateral left cere bellar hemisphere on image 9 of 16 is also new since prior head CT. No calvarial fractures are identi fied. IMPRESSION: 1. No acute intracranial hemorrhage. Exam mildly compromised by motion artifact. 2. 2.5 x 1.4 cm hypodense focus within the left cerebellar hemisphere which is new since prior head C T. This favors an old infarct. 3. 7 mm hypodensity within the left internal capsule which is new since prior head CT. This favors a subacute to chronic infarct. 4. No calvarial fractures. ACT 112: Negative or not required by law. Electronically signed by: Goran Costello M.D. 01/01/2024 9:15 AM
--- NOTE | 2024-01-01 10:01 | History & Physical Report ---
Date of Service January 01, 2024 Assessment & Plan (1) Fall: (2) Seizure: (3) Closed hip fracture: (4) Elevated troponin: Plan: 78-year-old female with history of diabetes type 2, hypertension, CKD stage III, CVA, GERD, Parkinson's dementia presenting with seizure episode observed at the halfway this morning. Right femur fracture Status post fall Hip x-ray: Acute comminuted displaced intratrochanteric fracture, right femur Orthopedic service consulted, planning for OR tomorrow or Wednesday Patient is high risk for cardiopulmonary perioperative complications in light of comorbidities and age If patient remains stable by tomorrow, no medical contraindications to proceed with planned surgery New onset seizure Seizure causing the fall? Seizure secondary to head concussion after the fall? Brain MRI: 1. Cortical restricted effusion within the bilateral frontoparietal lobes, as described above, with associated FLAIR signal abnormality. The MR appearance is nonspecific although could represent postictal change. Additional differential considerations include ischemia, posterior reversible encephalopathy syndrome, and cerebritis. 2. 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 3. Moderate atrophy and small vessel disease. 4. No intracranial mass or pathologic enhancement. 5. Numerous foci of susceptibility artifact within the bilateral cerebral hemispheres on gradient echo sequence. The findings suggest old blood products or amyloid deposition. Given loading dose of Keppra in the ER Continue with Keppra 500 mg every 12 hours EEG ordered Seizure precautions, monitor and replete electrolytes, n.p.o. until more awake Neurology service consult Hyperglycemia, diabetes type 2 Usually on insulin glargine 4 units at bedtime, metformin 500 mg twice daily Insulin sliding scale Consult pharmacy glycemic control Mild troponin elevation No cardiac symptoms noted Second and third troponin is pending EKG no signs of acute ischemia or infarct Echocardiogram ordered CKD stage III At baseline History of thalamic CVA On aspirin 81 mg p.o. daily as well as Lipitor 40 mg daily Brain MRI as above GERD Continue famotidine Parkinson's dementia, depression Continue Sinemet, donepezil, escitalopram DVT prophylaxis Heparin subcu twice daily CODE STATUS Full code as per longterm facility documentation Disposition Lives at [facility] History of Present Illness Chief Complaint: Seizure observed at the halfway Primary Care Provider: Lyly Mcneal MD 78-year-old female with history of diabetes type 2, hypertension, CKD stage III, CVA, GERD, Parkinson's dementia presenting with seizure episode observed at the halfway this morning. History obtained from the staff of patient's Shelter Facility [facility] as patient is sleeping/postictal. At baseline, patient is alert but confused/disoriented at all times. She is still able to ambulate independently with no assistive device at the longterm facility. She does need some help with activities of daily living like eating or getting dressed. Last evening, patient was found by staff on the toilet floor, conscious, but incontinent of urine. She was not able to describe how she fell, denies pain at the time. This morning, patient was found to be having generalized ongoing seizures while in the toilet. This episode lasted for about 30 seconds. At the ER, she was again noticed to have generalized close seizure that lasted for about a minute. She was given Ativan and was loaded with IV Keppra. The patient has been sleeping since then. Doppler carotid studies done earlier this month from outpatient [facility] clinic. Right carotid artery duplex examination indicates evidence of less than 50% stenosis of the internal carotid artery. Left carotid artery duplex examination indicates evidence of less than 50% stenosis of the internal carotid artery. Allergies Allergy/AdvReac Type Severity Reaction Status Date / Time bee venom protein (honey bee) Allergy Unknown Unknown Verified 06/30/22 14:18 latex Allergy Unknown Unknown Verified 06/30/22 14:18 Sulfa (Sulfonamide Allergy Unknown Unknown Verified 06/30/22 14:18 Antibiotics) Home Medications Medication Instructions Recorded Confirmed Type carbidopa 25 mg-levodopa 100 mg 2 tab PO TID 09/29/21 01/01/24 History tablet jiofdpjd-cpb-avxpj acid 0.4 1 tab PO DAILY ##0 09/29/21 01/01/24 History mg-lycopene 300 mcg-lutein 250 mcg tablet (CertaVite Senior) sodium phosphates 19 gram-7 118 ml VT DAILY PRN Constipation 09/29/21 01/01/24 History gram/118 mL enema (Fleet Enema) ##0 acetaminophen 325 mg capsule 650 mg PO Q4H PRN Pain/fever 09/30/21 01/01/24 History bisacodyl 10 mg rectal suppository 10 mg VT DAILY PRN Constipation 09/30/21 01/01/24 History (Dulcolax (bisacodyl)) donepezil 5 mg tablet 5 mg PO QPM 11/20/21 01/01/24 History Saccharomyces boulardii 250 mg 500 mg PO DAILY 01/01/24 01/01/24 History capsule (Florastor) aspirin 81 mg chewable tablet 81 mg PO QAM 01/01/24 01/01/24 History atorvastatin 40 mg tablet 40 mg PO QPM 01/01/24 01/01/24 History dextrose 40 % oral gel (Glucose 1 ea PO DAILY PRN Hypoglycemia 01/01/24 01/01/24 History Gel) escitalopram oxalate 5 mg tablet 5 mg PO DAILY 01/01/24 01/01/24 History famotidine 20 mg tablet 20 mg PO BID 01/01/24 01/01/24 History furosemide 20 mg tablet 20 mg PO QAM 01/01/24 01/01/24 History glucagon 1 mg/0.2 mL subcutaneous 1 mg subcut DAILY PRN Hypoglycemia 01/01/24 01/01/24 History auto-injector insulin glargine 100 unit/mL (3 4 unit subcut HS 01/01/24 01/01/24 History mL) subcutaneous pen magnesium hydroxide 400 mg/5 mL 2,400 mg PO DAILY PRN Constipation 01/01/24 01/01/24 History oral suspension (Milk of Magnesia) metformin 500 mg tablet 500 mg PO BID 01/01/24 01/01/24 History Past Med/Surg History Problem List (Updated 01/01/24 @ 16:01 by Carine Dunbar MD) New onset seizure Closed intertrochanteric fracture of right femur Elevated troponin (Acute) Fall (Acute) Seizure (Acute) Encounter for wound care (Acute) Abscess of buttock Encounter for pre-operative examination Dysphagia Resolved per 06/19/21 discharge summary Dizziness 05/2021 per records Per 06/19/21 Discharge summary- no focal deficit concerning for CVA- likely orthostatic hypotension vs BPPV Metabolic encephalopathy Resolved per records COVID Increased anion gap metabolic acidosis Rhabdomyolysis 2018 novel coronavirus-infected pneumonia (NCIP) (Acute) Rhabdomyolysis (Acute) Acute dehydration (Acute) Pressure injury of back, stage 2 Hypernatremia Hypokalemia UTI (urinary tract infection) Pneumonia due to COVID-19 virus Urinary retention Antibiotic-associated diarrhea Surgical wound, non healing (Acute) Cough (Acute) Wheezing (Acute) Confusion (Acute) Chronic kidney disease, stage 3a Sacral decubitus ulcer, stage IV (Acute) S/p debridement 05/22/21 and 06/20/21 per records Following with wound clinic HLD (hyperlipidemia) Diabetes Parkinsons disease (Chronic) Stable per records Medical History Atrial flutter Per halfway records- 03/2021 while admitted for Covid- started on heparin drip- treated with Metoprolol No mention of a flutter per 06/19/21 discharge summary- no EKGs showing a flutter while admitted from 03/2021 to 05/2021 HTN (hypertension) Weakness Generalized Disorientation Covid encephalopathy 03/2021 per records - returned to baseline on discharge per records Resolved per 06/19/21 Discharge Summary History of COVID-19 Positive Covid test 03/2021 per records- admitted to [facility] Covid pneumonia while admitted 03/2021 to 05/2021- resolved Covid pneumonia per 06/19/21 discharge summary Surgical History S/P debridement (09/30/21) Excisional Debridement of Sacral Decubitus Ulcer 5cm x 4cm down to bone - Van Villa DO History of dilation and curettage History of back surgery Family History Family/Other Heart disease Mother No pertinent family history Father No pertinent family history Social History Smoking Status: Unknown if ever smoked Second Hand Exposure: No; Do You Dip or Chew Tobacco: No; Hx Alcohol Use: No Hx Substance Use: No Preferred Language: Maltese Communication Ability: Impaired Communication Ability Comment: Unable to follow commands d/t current state 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 Beliefs That Will Affect Care: None marital status: Current Living Situation: Long-Term current occupational status: employed How many Children do You have: 3 Feels Safe at Home: Yes Assistive Devices: Wheelchair Review of Systems Review of Systems: all noted and negative except for above Physical Exam Physical Exam: General-Sleeping, breathing with no effort or accessory muscle use Head- atraumatic Eyes- PERRL,anicteric ENT- oropharynx clear Neck- supple, no JVD, no adenopathy, no thyromegaly; carotids +2/2, no bruits appreciated Lungs- clear to auscultation bilaterally, no rales/wheezes Heart- normal rate, regular rhythm; no murmur, no gallop, no rub appreciated Abdomen- normal bowel sounds, nondistended, soft, nontender, no masses or hep atosplenomegaly Extremities- Right lower extremity externally rotated no pretibial edema, no calf tenderness; peripheral pulses intact Neuro- Sleeping Skin- warm & dry Results & Data Results & Data Vital Signs (Past 12 Hours) Vital Signs Temp Pulse Resp BP Pulse Ox O2 Del Method O2 Flow Rate 01/01/24 08:59 90 16 90 Room Air 01/01/24 08:48 36.8 C 90 16 178/83 H 90 Room Air 01/01/24 07:40 92 H 01/01/24 07:02 90 Nasal Cannula 0 all noted and reviewed including below Code Status & VTE Plan VTE Prophylaxis Plan VTE Prophylaxis will be ordered: Yes (1) Fall Encounter type: initial encounter Qualified Code(s): W19.XXXA - Unspecified fall, initial encounter (3) Closed hip fracture Encounter type: initial encounter Laterality: right Qualified Code(s): S72.001A - Fracture of unspecified part of neck of right femur, initial encounter for closed fracture
[2024-01-01 10:17] LABS: INR 1.1 (0.9-1.1); Partial Thromboplastin Ratio 0.9; Partial Thromboplastin Time 23 Seconds (21-31); Prothrombin Time 11.9 Seconds (9.0-12.0)
[2024-01-01] MEDS: GADOBUTROL 65ML VIAL IV ONE (11:21)
--- NOTE | 2024-01-01 11:40 | Magnetic Resonance Report ---
MRI OF THE BRAIN WITHOUT AND WITH IV CONTRAST CLINICAL HISTORY: New onset seizure. COMPARISON STUDY: MRI the brain April 27, 2021. Head CT performed earlier today. TECHNIQUE: Utilizing a 1.5 Julianne magnet and dedicated coil, multiplanar, multiecho imaging of the br ain was performed pre and postcontrast administration. IV administration of 5.5 mL of Gadavist contr ast was uneventful. FINDINGS: The diffusion weighted sequence demonstrates cortical restricted diffusion within the bilat eral posterior frontal lobes and anterior parietal lobes. Correlation with the ADC map is somewhat di fficult however findings suggest for restricted diffusion. There is associated T2 hyperintensity on t he coronal FLAIR sequence. These findings are new since previous MRI. There is no mass effect. Modera te atrophy is noted. This accounts for ventricular dilatation. The basal cisterns are patent. There a re no extra-axial collections. Flow-voids for the major intracranial vessels are present. Is no intra cranial mass or pathologic enhancement. There is a small old infarct within the anterior left thalamu s as well as the lateral left cerebellar hemisphere. These account for the findings on head CT perfor med earlier today. Gradient echo sequence demonstrates numerous small hypointense foci throughout the cerebral hemispheres. White matter T2 hyperintense foci are noted on the coronal FLAIR sequence. Thi s exam is mildly compromised by motion artifact. IMPRESSION: 1. Cortical restricted effusion within the bilateral frontoparietal lobes, as described above, with a ssociated FLAIR signal abnormality. The MR appearance is nonspecific although could represent postict al change. Additional differential considerations include ischemia, posterior reversible encephalopat hy syndrome, and cerebritis. 2. 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 3. Moderate atrophy and small vessel disease. 4. No intracranial mass or pathologic enhancement. 5. Numerous foci of susceptibility artifact within the bilateral cerebral hemispheres on gradient ech o sequence. The findings suggest old blood products or amyloid deposition. ACT 112: Negative or not required by law. Electronically signed by: Goran Costello M.D. 01/01/2024 11:37 AM
--- NOTE | 2024-01-01 11:56 | Electrocardiogram Report ---
Test Reason : Blood Pressure : */* mmHG Vent. Rate : 94 BPM Atrial Rate : 94 BPM P-R Int : 250 ms QRS Dur : 80 ms QT Int : 380 ms P-R-T Axes : 55 -70 21 degrees QTcB Int : 475 ms Sinus rhythm with 1st degree A-V block Left anterior fascicular block Abnormal ECG When compared with ECG of 19-Apr-2021 02:07, artifact no longer present probably no change Confirmed by Simón Veliz ([id number]) on 01/01/2024 11:56:02 AM Referred By: REFERRED SELF Confirmed By: Simón Veliz
--- NOTE | 2024-01-01 12:04 | Orthopedic Consultation ---
Date of Service January 01, 2024 Assessment & Plan (1) Closed intertrochanteric fracture of right femur: 78-year-old female with Parkinson's dementia admitted with new onset seizures without a previous history and an intratrochanteric femur fracture found on ER evaluation. The fracture is best treated with surgical stabilization. This should be done as soon as medically reasonable. I discussed the diagnosis, prognosis, and treatment recommendations with her son by phone today. Her son Bertram is the POA. I explained that this fracture should be treated with surgery and that will be done as allowed by her medical condition. Explained the risks of surgery include, but are not limited to, infection, nerve or vessel injury, arthrofibrosis of the hip, failure of the hip fracture to heal despite surgery, need for repeat or revision surgery, symptomatic hardware or other implant complications, leg length discrepancy, malunion, nonunion, blood clots, pain syndromes, and complications related anesthesia. He asked appropriate questions, demonstrated a reasonable understanding by phone, and was agreeable to the surgery as soon as medically reasonable to do so. -Nonweightbearing to the right lower extremity -Consider TXA dose for fracture bleeding today -Tentatively scheduled for right hip closed reduction and trochanteric nail fixation as early as tomorrow morning, pending clearance from the admitting team. History of Present Illness Reason for Consultation: Right hip fracture Requesting Physician: . 78-year-old female admitted to the ER after seizure activity at [facility]. She independently ambulates without assistive devices but has Parkinson's dementia. She needs assistance with ADLs. History was also obtained from her son, Bertram, by phone today. He is the medical power of criminal defense attorney. He states that she is ambulatory at baseline without assist device. He says that she had a report of a fall yesterday. No prior issues with hip arthritis or need of treatment for hip condition. The patient was obtunded and not able to participate in history or physical exam. Allergies Allergy/AdvReac Type Severity Reaction Status Date / Time bee venom protein (honey bee) Allergy Unknown Unknown Verified 06/30/22 14:18 latex Allergy Unknown Unknown Verified 06/30/22 14:18 Sulfa (Sulfonamide Allergy Unknown Unknown Verified 06/30/22 14:18 Antibiotics) Home Medications Medication Instructions Recorded Confirmed Type carbidopa 25 mg-levodopa 100 mg 2 tab PO TID 09/29/21 01/01/24 History tablet vpjfwdnp-qla-ykkpt acid 0.4 1 tab PO DAILY ##0 09/29/21 01/01/24 History mg-lycopene 300 mcg-lutein 250 mcg tablet (CertaVite Senior) sodium phosphates 19 gram-7 118 ml NE DAILY PRN Constipation 09/29/21 01/01/24 History gram/118 mL enema (Fleet Enema) ##0 acetaminophen 325 mg capsule 650 mg PO Q4H PRN Pain/fever 09/30/21 01/01/24 History bisacodyl 10 mg rectal suppository 10 mg NE DAILY PRN Constipation 09/30/21 01/01/24 History (Dulcolax (bisacodyl)) donepezil 5 mg tablet 5 mg PO QPM 11/20/21 01/01/24 History Saccharomyces boulardii 250 mg 500 mg PO DAILY 01/01/24 01/01/24 History capsule (Florastor) aspirin 81 mg chewable tablet 81 mg PO QAM 01/01/24 01/01/24 History atorvastatin 40 mg tablet 40 mg PO QPM 01/01/24 01/01/24 History dextrose 40 % oral gel (Glucose 1 ea PO DAILY PRN Hypoglycemia 01/01/24 01/01/24 History Gel) escitalopram oxalate 5 mg tablet 5 mg PO DAILY 01/01/24 01/01/24 History famotidine 20 mg tablet 20 mg PO BID 01/01/24 01/01/24 History furosemide 20 mg tablet 20 mg PO QAM 01/01/24 01/01/24 History glucagon 1 mg/0.2 mL subcutaneous 1 mg subcut DAILY PRN Hypoglycemia 01/01/24 01/01/24 History auto-injector insulin glargine 100 unit/mL (3 4 unit subcut HS 01/01/24 01/01/24 History mL) subcutaneous pen magnesium hydroxide 400 mg/5 mL 2,400 mg PO DAILY PRN Constipation 01/01/24 01/01/24 History oral suspension (Milk of Magnesia) metformin 500 mg tablet 500 mg PO BID 01/01/24 01/01/24 History Past Med/Surg History Problem List (Updated 01/01/24 @ 12:09 by Mane Bonds MD) Closed intertrochanteric fracture of right femur Elevated troponin (Acute) Fall (Acute) Seizure (Acute) Encounter for wound care (Acute) Abscess of buttock Encounter for pre-operative examination Dysphagia Resolved per 06/19/21 discharge summary Dizziness 05/2021 per records Per 06/19/21 Discharge summary- no focal deficit concerning for CVA- likely orthostatic hypotension vs BPPV Metabolic encephalopathy Resolved per records COVID Increased anion gap metabolic acidosis Rhabdomyolysis 2018 novel coronavirus-infected pneumonia (NCIP) (Acute) Rhabdomyolysis (Acute) Acute dehydration (Acute) Pressure injury of back, stage 2 Hypernatremia Hypokalemia UTI (urinary tract infection) Pneumonia due to COVID-19 virus Urinary retention Antibiotic-associated diarrhea Surgical wound, non healing (Acute) Cough (Acute) Wheezing (Acute) Confusion (Acute) Chronic kidney disease, stage 3a Sacral decubitus ulcer, stage IV (Acute) S/p debridement 05/22/21 and 06/20/21 per records Following with wound clinic HLD (hyperlipidemia) Diabetes Parkinsons disease (Chronic) Stable per records Medical History Atrial flutter Per senior living records- 03/2021 while admitted for Covid- started on heparin drip- treated with Metoprolol No mention of a flutter per 06/19/21 discharge summary- no EKGs showing a flutter while admitted from 03/2021 to 05/2021 HTN (hypertension) Weakness Generalized Disorientation Covid encephalopathy 03/2021 per records - returned to baseline on discharge per records Resolved per 06/19/21 Discharge Summary History of COVID-19 Positive Covid test 03/2021 per records- admitted to [facility] Covid pneumonia while admitted 03/2021 to 05/2021- resolved Covid pneumonia per 06/19/21 discharge summary Surgical History S/P debridement (09/30/21) Excisional Debridement of Sacral Decubitus Ulcer 5cm x 4cm down to bone - Van Villa DO History of dilation and curettage History of back surgery Family History Family/Other Heart disease Mother No pertinent family history Father No pertinent family history Social History Smoking Status: Never smoker Second Hand Exposure: No; Do You Dip or Chew Tobacco: No; Hx Alcohol Use: No Hx Substance Use: No Preferred Language: Welsh Communication Ability: Effective Applications System Analyst Required: No Beliefs That Will Affect Care: None marital status: Current Living Situation: [facility] current occupational status: employed How many Children do You have: 3 Feels Safe at Home: Yes Assistive Devices: Denture - Upper, Denture - Lower and Wheelchair Review of Systems All systems reviewed & are unremarkable except as noted in HPI & below. Physical Exam Right lower extremity: No overlying skin trauma. Some fullness to the anterior hip. No irritability on logroll. Not following commands. Strong distal pulse. Minimal shortening of the extremity. Held in external rotation. Constitutional + thin and + lethargic; no acute distress Respiratory normal respiratory effort Cardiovascular Extremities: normal capillary refill; no edema Psychiatric Orientation: + not alert and + not oriented x 3 Results & Data Results & Data Laboratory Results . Diagnostic Findings X-rays available include AP hip and AP pelvis and lateral hip. Radiographs demonstrate a moderately displaced intertrochanteric fracture with a stable pattern. No subtrochanteric tension. Minimal comminution. Femoral head and neck are intact. From establishment seems to be well-preserved. PG Care Time/CCT Total # of Minutes Spent Total Time Spent with Patient: Total time spent is greater than 50% in coordination of care (as documented) at patient's floor/unit and/or counseling patient: Coding Level of Care Code 86262 IN/OBS CONSULT LVL 4,60M (57 - DECISION FOR SURGERY) Diagnoses Closed displaced intertrochanteric fracture of right femur, initial encounter S72.141A Encounter type: initial encounter Fracture alignment: displaced (1) Closed intertrochanteric fracture of right femur Encounter type: initial encounter Fracture alignment: displaced Qualified Code(s): S72.141A - Displaced intertrochanteric fracture of right femur, initial encounter for closed fracture
--- NOTE | 2024-01-01 12:08 | Orthopedic Consultation ---
Date of Service January 01, 2024 History of Present Illness Reason for Consultation: Right hip fracture Requesting Physician: . Attending Physician: Hardeep Araujo MD Loly is an 78-year-old female who reports to the emergency department today due to Allergies Allergy/AdvReac Type Severity Reaction Status Date / Time bee venom protein (honey bee) Allergy Unknown Unknown Verified 06/30/22 14:18 latex Allergy Unknown Unknown Verified 06/30/22 14:18 Sulfa (Sulfonamide Allergy Unknown Unknown Verified 06/30/22 14:18 Antibiotics) Home Medications Medication Instructions Recorded Confirmed Type carbidopa 25 mg-levodopa 100 mg 2 tab PO TID 09/29/21 01/01/24 History tablet hwfuwcfs-wxa-iplpe acid 0.4 1 tab PO DAILY ##0 09/29/21 01/01/24 History mg-lycopene 300 mcg-lutein 250 mcg tablet (CertaVite Senior) sodium phosphates 19 gram-7 118 ml NV DAILY PRN Constipation 09/29/21 01/01/24 History gram/118 mL enema (Fleet Enema) ##0 acetaminophen 325 mg capsule 650 mg PO Q4H PRN Pain/fever 09/30/21 01/01/24 History bisacodyl 10 mg rectal suppository 10 mg NV DAILY PRN Constipation 09/30/21 01/01/24 History (Dulcolax (bisacodyl)) donepezil 5 mg tablet 5 mg PO QPM 11/20/21 01/01/24 History Saccharomyces boulardii 250 mg 500 mg PO DAILY 01/01/24 01/01/24 History capsule (Florastor) aspirin 81 mg chewable tablet 81 mg PO QAM 01/01/24 01/01/24 History atorvastatin 40 mg tablet 40 mg PO QPM 01/01/24 01/01/24 History dextrose 40 % oral gel (Glucose 1 ea PO DAILY PRN Hypoglycemia 01/01/24 01/01/24 History Gel) escitalopram oxalate 5 mg tablet 5 mg PO DAILY 01/01/24 01/01/24 History famotidine 20 mg tablet 20 mg PO BID 01/01/24 01/01/24 History furosemide 20 mg tablet 20 mg PO QAM 01/01/24 01/01/24 History glucagon 1 mg/0.2 mL subcutaneous 1 mg subcut DAILY PRN Hypoglycemia 01/01/24 01/01/24 History auto-injector insulin glargine 100 unit/mL (3 4 unit subcut HS 01/01/24 01/01/24 History mL) subcutaneous pen magnesium hydroxide 400 mg/5 mL 2,400 mg PO DAILY PRN Constipation 01/01/24 01/01/24 History oral suspension (Milk of Magnesia) metformin 500 mg tablet 500 mg PO BID 01/01/24 01/01/24 History Past Med/Surg History Problem List Elevated troponin (Acute) Closed hip fracture (Acute) Fall (Acute) Seizure (Acute) Encounter for wound care (Acute) Abscess of buttock Encounter for pre-operative examination Dysphagia Resolved per 06/19/21 discharge summary Dizziness 05/2021 per records Per 06/19/21 Discharge summary- no focal deficit concerning for CVA- likely orthostatic hypotension vs BPPV Metabolic encephalopathy Resolved per records COVID Increased anion gap metabolic acidosis Rhabdomyolysis 2018 novel coronavirus-infected pneumonia (NCIP) (Acute) Rhabdomyolysis (Acute) Acute dehydration (Acute) Pressure injury of back, stage 2 Hypernatremia Hypokalemia UTI (urinary tract infection) Pneumonia due to COVID-19 virus Urinary retention Antibiotic-associated diarrhea Surgical wound, non healing (Acute) Cough (Acute) Wheezing (Acute) Confusion (Acute) Chronic kidney disease, stage 3a Sacral decubitus ulcer, stage IV (Acute) S/p debridement 05/22/21 and 06/20/21 per records Following with wound clinic HLD (hyperlipidemia) Diabetes Parkinsons disease (Chronic) Stable per records Medical History Atrial flutter Per group home records- 03/2021 while admitted for Covid- started on heparin drip- treated with Metoprolol No mention of a flutter per 06/19/21 discharge summary- no EKGs showing a flutter while admitted from 03/2021 to 05/2021 HTN (hypertension) Weakness Generalized Disorientation Covid encephalopathy 03/2021 per records - returned to baseline on discharge per records Resolved per 06/19/21 Discharge Summary History of COVID-19 Positive Covid test 03/2021 per records- admitted to [facility] Covid pneumonia while admitted 03/2021 to 05/2021- resolved Covid pneumonia per 06/19/21 discharge summary Surgical History S/P debridement (09/30/21) Excisional Debridement of Sacral Decubitus Ulcer 5cm x 4cm down to bone - Van Villa DO History of dilation and curettage History of back surgery Family History Family/Other Heart disease Mother No pertinent family history Father No pertinent family history Social History Smoking Status: Never smoker Second Hand Exposure: No; Do You Dip or Chew Tobacco: No; Hx Alcohol Use: No Hx Substance Use: No Preferred Language: Italian Communication Ability: Effective 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 Physical Exam . Results & Data Results & Data Laboratory Results . Diagnostic Findings . PG Care Time/CCT Total # of Minutes Spent Total Time Spent with Patient: Total time spent is greater than 50% in coordination of care (as documented) at patient's floor/unit and/or counseling patient: Coding
[2024-01-01] MEDS ORDERED: GLUCAGON FOR INJ 1 MG VIAL SQ PRN (12:20)
[2024-01-01] MEDS ORDERED: PHARMACY GLYCEMIC MGMT CONSULT PRN (12:20)
[2024-01-01] MEDS ORDERED: CARBOHYDRATES FOR HYPOGLYCEMIA PO PRN (12:20)
[2024-01-01] MEDS ORDERED: GLUCOSE 40% GEL 15 GM TUBE PO PRN ×2 (12:20→13:28)
[2024-01-01] MEDS ORDERED: GLUCOSE 10 TAB/TUBE PO PRN (12:20)
[2024-01-01] MEDS ORDERED: DEXTROSE 50% 50 ML SYRINGE IV PRN (12:20)
[2024-01-01] MEDS: SODIUM CHLORIDE 0.9% 1,000 ML IV SCH (12:30)
[2024-01-01] MEDS: INSULIN ASPART PER UNIT CHARGE SC SCH (12:43)
[2024-01-01] MEDS ORDERED: MAGNESIUM HYDROXIDE SUSP 30 ML UDC PO PRN (13:28)
[2024-01-01] MEDS ORDERED: bisacodyL 10 MG SUPP PR PRN (13:28)
[2024-01-01] MEDS ORDERED: SOD PHOSPHATE/SOD BIPHOSPHATE ENEMA 132 ML BTL PR PRN (13:28)
--- NOTE | 2024-01-01 14:11 | Pharmacy Report ---
Pharmacy Glycemic Short Note 2 - Date of Service January 01, 2024 - Glycemic Short BSG Results (Last 24 hours): 01/01/24 01/01/24 01/01/24 07:44 08:11 12:23 Glucose 281 H POC Glucose 257 H 306 H* 01/01/24 12:24 Glucose POC Glucose 288 H OUTPATIENT ANTIDIABETIC REGIMEN: * Insulin glargine 4 units SC HS * Metformin 500 mg PO BIDM HbA1c ordered for tomorrow AM (01/02/24) ASSESSMENT: * NC is an 78 year old female who presents to ED w/ right femur fracture s/p fall * Plan at this point is OR tomorrow or Wednesday, NPO at this time * Blood sugars elevated on presentation > 250 mg/dL * Will be conservative with initial insulin dosing to prioritize minimization of hypoglycemia PLAN FOR INPATIENT GLYCEMIC CONTROL: * Hold outpatient oral diabetes medications * Basal insulin * Lantus 0-2-4 units SQ HS (see EHR for details) * Bolus insulin * NovoLog per scale ACHS or Q4hrs while NPO * Goal Range: Low 120 mg/dL - High 160 mg/dL * Correction Factor: 40 mg/dL/unit * Nutritional / Prandial insulin per carb ratio of 1 unit per 15 grams CHO consumed
[2024-01-01] MEDS ORDERED: LORazepam 0.5 MG in SYRINGE 0.25 ML IV PRN (14:32)
[2024-01-01] MEDS: CARBIDOPA/LEVODOPA 25/100MG TAB PO SCH (15:02)
[2024-01-01] MEDS ORDERED: LORazepam 2 MG/1 ML VIAL IV PRN (15:41)
--- NOTE | 2024-01-01 15:47 | Neurology Consultation ---
Date of Consultation January 01, 2024 Assessment & Plan (1) New onset seizure: New onset seizure disorder likely related to her dementia and amyloid angiopathy. Plan Recommend to continue Keppra 500 mg twice daily. Discontinue Aricept as it can lower the seizure threshold Recommend obtaining an EEG stat to rule out any ongoing seizures. Less likely given withdrawal to pain Treat any underlying metabolic abnormalities. Check an ammonia level. Address CODE STATUS Telehealth Consultation Telehealth Information Telehealth Information: I performed this visit using a real-time telehealth connection between my location and the patients location ([facility]). After connecting through interactive tele-video, patient was identified by name and date of and/or wristband check.Patient (or authorized healthcare new accounts representative) was informed that this was a telemedicine visit and it was being conducted confidentially over secure lines. My office door was closed and no one else was present in the room with me.Patient (or authorized healthcare new accounts representative) provided consent to proceed with the visit, expressed an understanding of privacy and security of the telemedicine visit, and gave permission to have a hospital new accounts representative in the room in order to assist with the visit and to conduct portions of the visit, as needed. I informed the patient (or authorized healthcare new accounts representative) that I reviewed their record and presented the opportunity for them to ask any questions regarding the visit today. The patient agreed to participate. History of Present Illness Reason for Consultation: seizures Requesting Physician: Hardeep Araujo MD Attending Physician: Hardeep Araujo MD History of Present Illness Loly Thrasher is an 78-year-old female patient with PMH of DM, CKDIII, Parkinson's disease with dementia, with walks without an assistive device, needs help with ADLs prior history of seizures who presented from care home. The patient was brought to the ED after a witnessed seizure while the patient was at the toilet and was thought to be confused afterwards. The patient is described to be disoriented at all times. In the ED she had a generalized seizure that lasted about a minute was given Ativan and loaded with IV Keppra 1500 mg. Allergies Allergy/AdvReac Type Severity Reaction Status Date / Time bee venom protein (honey bee) Allergy Unknown Unknown Verified 06/30/22 14:18 latex Allergy Unknown Unknown Verified 06/30/22 14:18 Sulfa (Sulfonamide Allergy Unknown Unknown Verified 06/30/22 14:18 Antibiotics) Home Medications Medication Instructions Recorded Confirmed Type carbidopa 25 mg-levodopa 100 mg 2 tab PO TID 09/29/21 01/01/24 History tablet jkxrbneb-ihn-sgphu acid 0.4 1 tab PO DAILY ##0 09/29/21 01/01/24 History mg-lycopene 300 mcg-lutein 250 mcg tablet (CertaVite Senior) sodium phosphates 19 gram-7 118 ml OR DAILY PRN Constipation 09/29/21 01/01/24 History gram/118 mL enema (Fleet Enema) ##0 acetaminophen 325 mg capsule 650 mg PO Q4H PRN Pain/fever 09/30/21 01/01/24 History bisacodyl 10 mg rectal suppository 10 mg OR DAILY PRN Constipation 09/30/21 01/01/24 History (Dulcolax (bisacodyl)) donepezil 5 mg tablet 5 mg PO QPM 11/20/21 01/01/24 History Saccharomyces boulardii 250 mg 500 mg PO DAILY 01/01/24 01/01/24 History capsule (Florastor) aspirin 81 mg chewable tablet 81 mg PO QAM 01/01/24 01/01/24 History atorvastatin 40 mg tablet 40 mg PO QPM 01/01/24 01/01/24 History dextrose 40 % oral gel (Glucose 1 ea PO DAILY PRN Hypoglycemia 01/01/24 01/01/24 History Gel) escitalopram oxalate 5 mg tablet 5 mg PO DAILY 01/01/24 01/01/24 History famotidine 20 mg tablet 20 mg PO BID 01/01/24 01/01/24 History furosemide 20 mg tablet 20 mg PO QAM 01/01/24 01/01/24 History glucagon 1 mg/0.2 mL subcutaneous 1 mg subcut DAILY PRN Hypoglycemia 01/01/24 01/01/24 History auto-injector insulin glargine 100 unit/mL (3 4 unit subcut HS 01/01/24 01/01/24 History mL) subcutaneous pen magnesium hydroxide 400 mg/5 mL 2,400 mg PO DAILY PRN Constipation 01/01/24 01/01/24 History oral suspension (Milk of Magnesia) metformin 500 mg tablet 500 mg PO BID 01/01/24 01/01/24 History Patient History Medical History Atrial flutter Per care home records- 03/2021 while admitted for Covid- started on heparin drip- treated with Metoprolol No mention of a flutter per 06/19/21 discharge summary- no EKGs showing a flutter while admitted from 03/2021 to 05/2021 HTN (hypertension) Weakness Generalized Disorientation Covid encephalopathy 03/2021 per records - returned to baseline on discharge per records Resolved per 06/19/21 Discharge Summary History of COVID-19 Positive Covid test 03/2021 per records- admitted to [facility] Covid pneumonia while admitted 03/2021 to 05/2021- resolved Covid pneumonia per 06/19/21 discharge summary Surgical History S/P debridement (09/30/21) Excisional Debridement of Sacral Decubitus Ulcer 5cm x 4cm down to bone - Van Villa DO History of dilation and curettage History of back surgery Family History Family/Other Heart disease Mother No pertinent family history Father No pertinent family history Social History Smoking Status: Unknown if ever smoked Second Hand Exposure: No; Do You Dip or Chew Tobacco: No; Hx Alcohol Use: No Hx Substance Use: No Preferred Language: Malagasy Communication Ability: Impaired Communication Ability Comment: Unable to follow commands d/t current state 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 The staff did not report any generalized tonic-clonic seizure and she has been lightheaded since admission. Results & Data Vital Signs (Past 12 Hours) Vital Signs Temp Pulse Pulse Resp BP BP Pulse Ox 01/01/24 14:35 36.8 C 111 H 20 163/95 H 97 01/01/24 12:20 37.1 C 101 H 15 168/101 H 97 01/01/24 12:20 01/01/24 12:20 37.1 C 101 H 15 168/101 H 97 01/01/24 10:23 116 H 20 178/106 H 97 01/01/24 10:00 113 H 20 190/98 H 100 01/01/24 09:30 110 H 20 159/99 H 100 01/01/24 09:00 103 H 20 168/90 H 100 01/01/24 08:59 90 16 90 01/01/24 08:48 36.8 C 90 16 178/83 H 90 01/01/24 08:30 118 H 25 H 195/93 H 100 01/01/24 08:27 65 L 01/01/24 08:25 65 L 01/01/24 08:15 91 H 14 164/125 H 97 01/01/24 07:40 92 H 01/01/24 07:02 90 O2 Del Method O2 Flow Rate 01/01/24 14:35 Nasal Cannula 4 01/01/24 12:20 Room Air 01/01/24 12:20 Nasal Cannula 4 01/01/24 12:20 Nasal Cannula 4 01/01/24 10:23 Nasal Cannula 4 01/01/24 10:00 Non-rebreather 01/01/24 09:30 Non-rebreather 15 01/01/24 09:00 Non-rebreather 15 01/01/24 08:59 Room Air 01/01/24 08:48 Room Air 01/01/24 08:30 Non-rebreather 15 01/01/24 08:27 Nasal Cannula, Non-rebreather 6 01/01/24 08:25 Nasal Cannula 2 01/01/24 08:15 Nasal Cannula 2 01/01/24 07:40 01/01/24 07:02 Nasal Cannula 0 Laboratory Results Abnormal lab results 01/01/24 01/01/24 01/01/24 Range/Units 07:44 07:57 08:11 Neut # (Auto) 8.64 H (1.40-6.50) K/uL Anion Gap 13 H (3-11) Glucose 281 H (70-99(Fasting)) mg/dl POC Glucose 257 H (70-99) mg/dl Total Bilirubin 1.1 H (0.2-1.0) mg/dl Alkaline Phosphatase 117 H (34-104) U/L Troponin I High Sens 262.6 H* (0-14) pg/ml Urine Ketones Trace H (Negative) 01/01/24 01/01/24 01/01/24 Range/Units 10:09 12:23 12:24 Neut # (Auto) (1.40-6.50) K/uL Anion Gap (3-11) Glucose (70-99(Fasting)) mg/dl POC Glucose 306 H* 288 H (70-99) mg/dl Total Bilirubin (0.2-1.0) mg/dl Alkaline Phosphatase (34-104) U/L Troponin I High Sens 324.0 H* D (0-14) pg/ml Urine Ketones (Negative) Diagnostic Findings Chest X-Ray 01/01/24 07:41 XR chest 1V portable CLINICAL HISTORY: weakness. Fall. COMPARISON STUDY: Chest radiograph May 28, 2021. FINDINGS: Mild elevation the right hemidiaphragm is unchanged. Lungs are clear. Calcified granulomas within the left lung are unchanged. These are benign. There is no pneumothorax or pleural effusion. Cardiac size is normal. Mediastinal contours are normal. There is no evidence for pulmonary edema. IMPRESSION: No acute cardiopulmonary findings. ACT 112: Negative or not required by law. Electronically signed by: Goran Costello M.D. 01/01/2024 8:[address] 01/01/24 07:42 CT OF THE HEAD WITHOUT CONTRAST CLINICAL HISTORY: Seizure. COMPARISON STUDY: MRI of the brain May 07, 2021. Head CT May 20, 2021. CT DOSE: 975.47 mGy.cm TECHNIQUE: Helical axial images of the head were obtained without IV contrast. Automated exposure control was utilized for the study. A dose lowering technique was utilized adhering to the principles of ALARA. FINDINGS: This exam is mildly compromised by motion artifact. No acute intracranial hemorrhage, midline shift or mass effect is present. The ventricular system is unremarkable. The basal cisterns are patent. There are no extra-axial collections. White matter hypodensity suggests small vessel disease. A 7 mm hypodensity within the left internal capsule may also involve the anterior aspect of the left thalamus. This is new since prior head CT. A 2.5 x 1.4 cm hypodense focus within the lateral left cerebellar hemisphere on image 9 of 16 is also new since prior head CT. No calvarial fractures are identified. IMPRESSION: 1. No acute intracranial hemorrhage. Exam mildly compromised by motion artifact. 2. 2.5 x 1.4 cm hypodense focus within the left cerebellar hemisphere which is new since prior head CT. This favors an old infarct. 3. 7 mm hypodensity within the left internal capsule which is new since prior head CT. This favors a subacute to chronic infarct. 4. No calvarial fractures. ACT 112: Negative or not required by law. Electronically signed by: Goran Costello M.D. 01/01/2024 9:15 AM Femur X-Ray 01/01/24 07:57 XR femur RT 2V routine CLINICAL HISTORY: fall COMPARISON: Right hip and right knee radiographs May 20, 2021. FINDINGS: There is an acute comminuted mildly displaced intertrochanteric frac ture of the right femur. No additional right femoral fracture is present. IMPRESSION: Acute comminuted mildly displaced intertrochanteric fracture of the right femur. ACT 112: Negative or not required by law. Electronically signed by: Goran Costello M.D. 01/01/2024 8:38 AM Pelvis X-Ray 01/01/24 07:57 XR pelvis 1-2V routine CLINICAL HISTORY: fall COMPARISON: Pelvis and right hip radiographs May 20, 2021. FINDINGS: Sacroiliac joints and symphysis pubis are intact. There is an acute comminuted mildly displaced intertrochanteric fracture of the right femur. No additional fractures. Proximal left femur is intact. IMPRESSION: Acute comminuted displaced intertrochanteric fracture of the right femur. ACT 112: Negative or not required by law. Electronically signed by: Goran Costello M.D. 01/01/2024 8:35 AM Brain MRI 01/01/24 10:18 MRI OF THE BRAIN WITHOUT AND WITH IV CONTRAST CLINICAL HISTORY: New onset seizure. COMPARISON STUDY: MRI the brain April 27, 2021. Head CT performed earlier today. TECHNIQUE: Utilizing a 1.5 Julianne magnet and dedicated coil, multiplanar, multiecho imaging of the brain was performed pre and postcontrast administration. IV administration of 5.5 mL of Gadavist contrast was uneventful. FINDINGS: The diffusion weighted sequence demonstrates cortical restricted diffusion within the bilateral posterior frontal lobes and anterior parietal lobes. Correlation with the ADC map is somewhat difficult however findings suggest for restricted diffusion. There is associated T2 hyperintensity on the coronal FLAIR sequence. These findings are new since previous MRI. There is no mass effect. Moderate atrophy is noted. This accounts for ventricular dila tation. The basal cisterns are patent. There are no extra-axial collections. Flow-voids for the major intracranial vessels are present. Is no intracranial mass or pathologic enhancement. There is a small old infarct within the anterior left thalamus as well as the lateral left cerebellar hemisphere. These account for the findings on head CT performed earlier today. Gradient echo sequence demonstrates numerous small hypointense foci throughout the cerebral hemispheres. White matter T2 hyperintense foci are noted on the coronal FLAIR sequence. This exam is mildly compromised by motion artifact. IMPRESSION: 1. Cortical restricted effusion within the bilateral frontoparietal lobes, as described above, with associated FLAIR signal abnormality. The MR appearance is nonspecific although could represent postictal change. Additional differential considerations include ischemia, posterior reversible encephalopathy syndrome, and cerebritis. 2. 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 3. Moderate atrophy and small vessel disease. 4. No intracranial mass or pathologic enhancement. 5. Numerous foci of susceptibility artifact within the bilateral cerebral hemispheres on gradient echo sequence. The findings suggest old blood products or amyloid deposition. ACT 112: Negative or not required by law. Electronically signed by: Goran Costello M.D. 01/01/2024 11:37 AM Medications Administered Home Medications Medication Instructions Recorded Confirmed Last Taken carbidopa 25 mg-levodopa 100 mg 2 tab PO TID 09/29/21 01/01/24 09/30/21 08:00 tablet iixebojd-hhu-ujnnr acid 0.4 1 tab PO DAILY ##0 09/29/21 01/01/24 09/29/21 08:00 mg-lycopene 300 mcg-lutein 250 mcg tablet (CertaVite Senior) sodium phosphates 19 gram-7 118 ml OR DAILY PRN Constipation 09/29/21 01/01/24 Unknown gram/118 mL enema (Fleet Enema) ##0 acetaminophen 325 mg capsule 650 mg PO Q4H PRN Pain/fever 09/30/21 01/01/24 Unknown bisacodyl 10 mg rectal suppository 10 mg OR DAILY PRN Constipation 09/30/21 01/01/24 Unknown (Dulcolax (bisacodyl)) donepezil 5 mg tablet 5 mg PO QPM 11/20/21 01/01/24 Unknown Saccharomyces boulardii 250 mg 500 mg PO DAILY 01/01/24 01/01/24 Unknown capsule (Florastor) aspirin 81 mg chewable tablet 81 mg PO QAM 01/01/24 01/01/24 Unknown atorvastatin 40 mg tablet 40 mg PO QPM 01/01/24 01/01/24 Unknown dextrose 40 % oral gel (Glucose 1 ea PO DAILY PRN Hypoglycemia 01/01/24 01/01/24 Unknown Gel) escitalopram oxalate 5 mg tablet 5 mg PO DAILY 01/01/24 01/01/24 Unknown famotidine 20 mg tablet 20 mg PO BID 01/01/24 01/01/24 Unknown furosemide 20 mg tablet 20 mg PO QAM 01/01/24 01/01/24 Unknown glucagon 1 mg/0.2 mL subcutaneous 1 mg subcut DAILY PRN Hypoglycemia 01/01/24 01/01/24 Unknown auto-injector insulin glargine 100 unit/mL (3 4 unit subcut HS 01/01/24 01/01/24 Unknown mL) subcutaneous pen magnesium hydroxide 400 mg/5 mL 2,400 mg PO DAILY PRN Constipation 01/01/24 01/01/24 Unknown oral suspension (Milk of Magnesia) metformin 500 mg tablet 500 mg PO BID 01/01/24 01/01/24 Unknown Active Medications Generic Name Dose Route Start Last Admin Trade Name Freq PRN Reason Stop Dose Admin Carbidopa/Levodopa 2 tab 01/01/24 14:00 01/01/24 15:02 Carbidopa/Levodopa 25/100mg Tab PO 01/31/24 13:59 Not Given TID CHIKI Sodium Chloride 1,000 mls @ 75 mls/hr 01/01/24 12:20 01/01/24 12:30 Nss IV 01/31/24 12:19 75 mls/hr .[id number] CHIKI Administration Insulin Aspart 0 units 01/01/24 12:35 01/01/24 12:43 Insulin Aspart Per Unit Charge SC 01/31/24 12:34 3 units Q4 CHKII Administration
[2024-01-01] MEDS: hydrALAZINE HCL 20 MG/ML VIAL IV PRN (17:58)
[2024-01-01] MEDS: ACETAMINOPHEN 1,000 MG/100 ML VIAL IV PRN (18:33)
[2024-01-01] MEDS ORDERED: FAMOTIDINE 20 MG TAB PO SCH (21:00)
[2024-01-01] MEDS ORDERED: LANTUS PER UNIT CHARGE SC SCH (21:00)
[2024-01-01] MEDS: LANTUS PER UNIT CHARGE SC SCH (21:02)
[2024-01-01] MEDS: ATORVASTATIN 40 MG TAB PO SCH (21:04)
[2024-01-01] MEDS: DONEPEZIL HCL 5 MG TAB PO SCH (21:05)
[2024-01-01] MEDS: HEPARIN SOD 5,000 UNIT/0.5 ML VIAL SQ SCH (21:05)
[2024-01-01] MEDS: levETIRAcetam IV 500 MG in SODIUM CHLOR 0.9% MINI-B 100 ML IV SCH (21:14)
[2024-01-01] MEDS: FAMOTIDINE 20MG IV PUSH 20 MG/5 ML SYR IV SCH (21:36)
[2024-01-02 06:18] LABS: Basophils # (auto) 0.01 K/uL (0.00-0.20); Basophils % (auto) 0.1 %; Hemoglobin 10.3 g/dl (12.0-16.0); Immature Granulocytes # (auto) 0.03 K/uL (0.01-0.20); Immature Granulocytes % (auto) 0.3 %; Lymphocytes # (auto) 1.61 K/uL (1.20-3.40); Lymphocytes % (auto) 17.1 %; Mean Corpuscular Hemoglobin 29.3 pg (25.0-34.0); Mean Corpuscular Hgb Conc 33.2 g/dL (32.0-36.0); Mean Corpuscular Volume 88.3 fL (80.0-100.0); Mean Platelet Volume 11.2 fL (9.4-12.4); Monocytes # (auto) 0.81 K/uL (0.11-0.59); Monocytes % (auto) 8.6 %; Neutrophils # (auto) 6.97 K/uL (1.40-6.50); Neutrophils % (auto) 73.9 %; Platelet Count 149 K/uL (130-400); RDW Coefficient of Variation 13.7 % (11.5-14.5); RDW Standard Deviation 44.6 fL (36.4-46.3); Red Blood Count 3.51 M/uL (4.20-5.40); White Blood Count 9.43 K/ul (4.8-10.8)
[2024-01-02 06:36] LABS: Albumin Globulin Ratio 1.7 (0.9-2); Albumin Level 3.4 gm/dl (3.4-5.0); BUN Creatinine Ratio 23.2 (10-20); Bilirubin,Total 1.1 mg/dl (0.2-1.0); Calcium 8.6 mg/dl (8.6-10.3); Creatinine Clr Calc Pharmacy 51.4 ml/min; Est GFR (African American) 95.3 ml/min; Est GFR (Non-African American) 82.2 ml/min; Magnesium 1.7 mg/dl (1.7-2.4); Phosphorus 3.9 mg/dl (2.5-4.9); Potassium 3.2 mmol/L (3.5-5.1); Total Protein 5.4 gm/dl (6.0-8.3)
[2024-01-02 06:43] LABS: Troponin I High Sensitivity 377.3 pg/ml (0-14)
[2024-01-02 07:20] LABS: Estimated Average Glucose 160 mg/dl; Hemoglobin A1C 7.2 % (4.5-5.6)
--- NOTE | 2024-01-02 07:40 | Anesthesiology Consultation ---
Date of Service January 02, 2024 Assessment & Plan Chart Review Chart Review: Acceptable Risk for Surgery and Patient NOT seen in Pre Admission Testing Consults Requested none ASA ASA4 Proposed Anesthesia Anesthesia Type: General History Surgery Operation Date: 01/02/24 07:30 Proposed Procedures p Intramedullary Moustapha Femur - Mane Bonds MD Height/Weight Height: 5 ft 2 in Weight: 52.6 kg Allergies Allergy/AdvReac Type Severity Reaction Status Date / Time bee venom protein (honey bee) Allergy Unknown Unknown Verified 06/30/22 14:18 latex Allergy Unknown Unknown Verified 06/30/22 14:18 Sulfa (Sulfonamide Allergy Unknown Unknown Verified 06/30/22 14:18 Antibiotics) Medications Home Medications Medication Instructions Recorded Confirmed Last Taken carbidopa 25 mg-levodopa 100 mg 2 tab PO TID 09/29/21 01/01/24 09/30/21 08:00 tablet [id number] acid 0.4 1 tab PO DAILY ##0 09/29/21 01/01/24 09/29/21 08:00 mg-lycopene 300 mcg-lutein 250 mcg tablet (Certa[employer]ite Senior) sodium phosphates 19 gram-7 118 ml KS DAILY PRN Constipation 09/29/21 01/01/24 Unknown gram/118 mL enema (Fleet Enema) ##0 acetaminophen 325 mg capsule 650 mg PO Q4H PRN Pain/fever 09/30/21 01/01/24 Unknown bisacodyl 10 mg rectal suppository 10 mg KS DAILY PRN Constipation 09/30/21 01/01/24 Unknown (Dulcolax (bisacodyl)) donepezil 5 mg tablet 5 mg PO QPM 11/20/21 01/01/24 Unknown Saccharomyces boulardii 250 mg 500 mg PO DAILY 01/01/24 01/01/24 Unknown capsule (Florastor) aspirin 81 mg chewable tablet 81 mg PO QAM 01/01/24 01/01/24 Unknown atorvastatin 40 mg tablet 40 mg PO QPM 01/01/24 01/01/24 Unknown dextrose 40 % oral gel (Glucose 1 ea PO DAILY PRN Hypoglycemia 01/01/24 01/01/24 Unknown Gel) escitalopram oxalate 5 mg tablet 5 mg PO DAILY 01/01/24 01/01/24 Unknown famotidine 20 mg tablet 20 mg PO BID 01/01/24 01/01/24 Unknown furosemide 20 mg tablet 20 mg PO QAM 01/01/24 01/01/24 Unknown glucagon 1 mg/0.2 mL subcutaneous 1 mg subcut DAILY PRN Hypoglycemia 01/01/24 01/01/24 Unknown auto-injector insulin glargine 100 unit/mL (3 4 unit subcut HS 01/01/24 01/01/24 Unknown mL) subcutaneous pen magnesium hydroxide 400 mg/5 mL 2,400 mg PO DAILY PRN Constipation 01/01/24 01/01/24 Unknown oral suspension (Milk of Magnesia) metformin 500 mg tablet 500 mg PO BID 01/01/24 01/01/24 Unknown Active Medications Generic Name Dose Route Start Last Admin Trade Name Freq PRN Reason Stop Dose Admin Atorvastatin Calcium 40 mg 01/01/24 21:00 01/01/24 21:04 Atorvastatin 40 Mg Tab PO 01/31/24 20:59 Not Given QPM CHIKI Carbidopa/Levodopa 2 tab 01/01/24 14:00 01/01/24 21:04 Carbidopa/Levodopa 25/100mg Tab PO 01/31/24 13:59 Not Given TID CHIKI Donepezil HCl 5 mg 01/01/24 21:00 01/01/24 21:05 Donepezil Hcl 5 Mg Tab PO 01/31/24 20:59 Not Given QPM CHIKI Heparin Sodium (Porcine) 5,000 units 01/01/24 21:00 01/01/24 21:05 Heparin Sod 5,000 Unit/0.5 Ml Vial SQ 01/31/24 20:59 5,000 units Q12 CHIKI Administration Hydralazine HCl 5 mg 01/01/24 14:32 01/01/24 17:58 Hydralazine Hcl 20 Mg/Ml Vial IV 01/31/24 14:31 5 mg Q6H PRN Administration systolic bp > 160 Sodium Chloride 1,000 mls @ 75 mls/hr 01/01/24 12:20 01/02/24 04:20 Nss IV 01/31/24 12:19 75 mls/hr .[id number] CHIKI Administration Levetiracetam 500 mg/ Sodium 105 mls @ 420 mls/hr 01/01/24 21:00 01/01/24 21:42 Chloride IV 01/31/24 20:59 Infused Q12 CHIKI Infusion Acetaminophen 1,000 mg in 100 mls @ 400 mls/hr 01/01/24 18:26 01/02/24 03:31 Ofirmev IV 01/04/24 18:25 Infused Q8H PRN Infusion fever/pain Famotidine 20 mg in 5 mls @ 2.5 mls/min 01/01/24 21:00 01/01/24 21:36 Pepcid 20mg Iv Push IV 01/31/24 20:59 2.5 mls/min Q12H CHIKI Administration Insulin Aspart 0 units 01/01/24 12:35 01/02/24 04:30 Insulin Aspart Per Unit Charge MI 01/31/24 12:34 1 units Q4 CHIKI Administration Insulin Glargine 0 units 01/01/24 20:00 01/01/24 21:02 Lantus Per Unit Charge MI 01/31/24 19:59 2 units [id number]@[email or web address] CHIKI Administration Protocol Past Medical History Medical History Atrial flutter Per snf records- 03/2021 while admitted for Covid- started on heparin drip- treated with Metoprolol No mention of a flutter per 06/19/21 discharge summary- no EKGs showing a flutter while admitted from 03/2021 to 05/2021 HTN (hypertension) Weakness Generalized Disorientation Covid encephalopathy 03/2021 per records - returned to baseline on discharge per records Resolved per 06/19/21 Discharge Summary History of COVID-19 Positive Covid test 03/2021 per records- admitted to [facility] Covid pneumonia while admitted 03/2021 to 05/2021- resolved Covid pneumonia per 06/19/21 discharge summary seizure Hx elevated troponins anemia obtunded mentation CKD3 sacral decubitus ulcer 4 Exercise / Class Metabolic Activity IV < 2 Limit ADL/Bedbound Past Family History Family History Family/Other Heart disease Mother No pertinent family history Father No pertinent family history Past Surgical History Surgical History S/P debridement (09/30/21) Excisional Debridement of Sacral Decubitus Ulcer 5cm x 4cm down to bone - Van A. Allen, DO History of dilation and curettage History of back surgery Past Anesthesia History No Hx of Anesthesia Complications and No Family Hx of Anesthesia Complications History of PONV No Hx of PONV and No Hx of Motion Sickness Social History Smoking Status: Unknown if ever smoked Do You Dip or Chew Tobacco: No Hx Alcohol Use: No Hx Substance Use: No Physical Exam Vital Signs Last Vital Signs Temp 36.7 C 01/02/24 07:00 Pulse 74 01/02/24 07:00 Resp 16 01/02/24 07:00 BP 142/63 H 01/02/24 07:00 Pulse Ox 100 01/02/24 07:00 O2 Del Method Nasal Cannula 01/02/24 07:00 O2 Flow Rate 4 01/01/24 22:57 Testing Laboratory Results 01/02/24 05:45 01/02/24 05:45 PT 11.9 Seconds (9.0-12.0) 01/01/24 09:13 INR 1.1 (0.9-1.1) 01/01/24 09:13 APTT 23 Seconds (21-31) 01/01/24 09:13 Hemoglobin A1c 7.2 % (4.5-5.6) H 01/02/24 05:45 Urine Color Yellow 01/01/24 07:57 Urine Appearance Clear (Clear) 01/01/24 07:57 Urine pH 7.5 (4.5-7.5) 01/01/24 07:57 Ur Specific Trinity 1.013 (1.000-1.030) 01/01/24 07:57 Urine Protein Negative (Negative) 01/01/24 07:57 Urine Glucose (UA) Negative (Negative) 01/01/24 07:57 Urine Ketones Trace (Negative) H 01/01/24 07:57 Urine Nitrite Negative (Negative) 01/01/24 07:57 Ur Leukocyte Esterase Negative (Negative) 01/01/24 07:57 01/02/24 01/02/24 01/02/24 07:18 04:19 00:13 POC Glucose 118 H 151 H 171 H 01/01/24 20:19 POC Glucose 194 H Electrocardiogram Date: 01/01/24 Findings: + NSR @ (@ 94 w/ 1st degree AVB;LAFB) Chest X-Ray Date: 01/01/24 Findings: + NAD Echocardiogram Date: 01/01/24 EF: 55% LV Function: normal RWMA: + none Other Findings: + diastolic dysfunction (Grade 1) Valvular Disease: + no significant valvular disease sigmoid septum
[2024-01-02] MEDS: CEROVITE ADV FORMULA TAB PO SCH (09:29)
[2024-01-02] MEDS: SACCHAROMYCES BOULARDII 250 MG CAP PO SCH (09:29)
[2024-01-02] MEDS: ESCITALOPRAM OXALATE 10 MG TAB PO SCH (09:30)
[2024-01-02] MEDS: ASPIRIN 81 MG CHEW PO SCH (09:40)
--- NOTE | 2024-01-02 12:18 | Hospitalist Progress Note ---
Date of Service January 02, 2024 Assessment & Plan (1) Fall: (2) Seizure: (3) Elevated troponin: Plan: 78-year-old female with history of diabetes type 2, hypertension, CKD stage III, CVA, GERD, Parkinson's dementia presenting with seizure episode observed at the long term in the morning of arrival: Right femur fracture Status post fall Hip x-ray: Acute comminuted displaced intratrochanteric fracture, right femur Orthopedic service consulted, planning for OR likely bertram. Patient is moderate to high risk for cardiopulmonary perioperative complications in light of comorbidities and age for much needed hip sx. Pt reports pain under control when not moving. D/w anesthesiology, who would like cardio clearance for Sx and EEG be done. Mild troponin elevation: No cardiac symptoms noted. Troponin flat trended around 300, EKG no signs of acute ischemia or infarct. Echocardiogram didnot note any regional wall motion abnormality. New onset seizure Seizure causing the fall? Seizure secondary to head concussion after the fall? Pt presented after noted seizure episode at [facility], had additional episode of seizure in the ED. Admitting Brain MRI: 1. Cortical restricted effusion within the bilateral frontoparietal lobes, as described above, with associated FLAIR signal abnormality. The MR appearance is nonspecific although could represent postictal change. Additional differential considerations include ischemia, posterior reversible encephalopathy syndrome, and cerebritis. 2. 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 3. Moderate atrophy and small vessel disease. 4. No intracranial mass or pathologic enhancement. 5. Numerous foci of susceptibility artifact within the bilateral cerebral hemispheres on gradient echo sequence. The findings suggest old blood products or amyloid deposition. s/p loading dose of Keppra in the ER Continue with Keppra 500 mg every 12 hours EEG ordered, follow. Neuro evaled, agrees w/ keppra dose and eeg order. Aricept discontinued. Seizure precautions, monitor and replete electrolytes, n.p.o. until speech eval, and npo midnight for possible sx bertram. c/w D5NS at 65 ml/hr. Hyperglycemia, diabetes type 2: Usually on insulin glargine 4 units at bedtime, metformin 500 mg twice daily. Insulin sliding scale. Consult pharmacy glycemic control CKD stage III: At baseline. Continue to monitor. History of thalamic CVA: On aspirin 81 mg p.o. daily as well as Lipitor 40 mg daily. Brain MRI as above GERD: Continue famotidine Parkinson's dementia, depression: Continue Sinemet, donepezil, escitalopram DVT prophylaxis: Heparin subcu twice daily CODE STATUS: Full code as per custodial facility documentation Disposition: Lives at [facility]. PT/OT after Sx , CM to assist w/ dc plan. Admission and Anticipated Discharge Date Admission Date: January 01, 2024 Subjective Patient was seen and examined at bedside. Patient was lying in bed, on 4 L oxygen via nasal cannula, appears confused, oriented to name, appears lethargic/frail/ill. Patient denies pain when not moving, but had some pain on right hip exam. Per RN, patient passed bedside swallow screen, taking p.o. medications, no new acute event overnight. Pt's son Bertram and NEIDA Santos were met at bedside early afternoon. They stated they are the POA and will bring papers tomorrow. They stated that if other family members are around during rounding, they can get information about the patient but only Bertram and Danielle can make decisions regarding the patient. They are updated regarding her higher risks for most needed hip surgery. NEIDA is nurse and they understand that she is high cardiorespiratory risk for surgery but would like to proceed with surgery. Answered all the questions, they voiced understanding and were agreeable to plan of care. Physical Exam Physical Exam: General- lethargic, oriented x self, appears frail/weak/lethargic. Head- atraumatic Eyes- PERRL,anicteric ENT- oropharynx clear Neck- supple, no JVD, no adenopathy, no thyromegaly; carotids +2/2, no bruits appreciated Lungs- clear to auscultation bilaterally, no rales/wheezes Heart- normal rate, regular rhythm; no murmur, no gallop, no rub appreciated Abdomen- normal bowel sounds, nondistended, soft, nontender, no masses or hepatosplenomegaly Extremities- Right lower extremity externally rotated, painful rom, tender right hip. no pretibial edema, no calf tenderness; peripheral pulses intact Skin- warm & dry Results & Data Results & Data Vital Signs (Past 12 Hours) Vital Signs Temp Pulse Resp BP Pulse Ox O2 Del Method O2 Flow Rate 01/02/24 10:52 36.7 C 74 20 120/68 98 Nasal Cannula 4 01/02/24 07:32 4 01/02/24 07:00 36.7 C 74 16 142/63 H 100 Nasal Cannula 01/02/24 03:03 36.9 C 72 20 138/81 99 Nasal Cannula (1) Fall Encounter type: initial encounter Qualified Code(s): W19.XXXA - Unspecified fall, initial encounter
--- NOTE | 2024-01-02 12:58 | Communication Note ---
Date of Service: January 02, 2024 Discussed case w/ Dr Curran. I have requested him to facilitate obtaining an EEG as per neurologist; I have requested a cardiology consult regarding elevated troponins and an ammonia level a per neurology.
[2024-01-02] MEDS: POTASSIUM CHLORIDE / WTR 10 MEQ/100 ML PLCT IV SCH (13:21)
[2024-01-02] MEDS: MAGNESIUM SULFATE / D5W 1 GM/100 ML BAG IV SCH (13:21)
[2024-01-02] MEDS: D5W AND NSS 1,000 ML IV SCH (13:30)
--- NOTE | 2024-01-02 14:23 | Orthopedic Progress Note ---
Date of Service January 02, 2024 Assessment & Plan (1) Closed intertrochanteric fracture of right femur: Hospital day 2 after being admitted for seizure activity following a fall, and incidental finding of a right intertrochanteric femur fracture. - Unclear if she was acceptable for surgery per neurology. Anesthesia was consulted and recommended cardiology as well as the EEG to be completed first. - Will tentatively plan for surgery tomorrow, depending on whether she is clear - Continue bedrest - If there was any potential for returning to ambulatory activities, then surgical stabilization of the hip is the best care. The alternative to surgery would be bedrest for up to 6 or 8 weeks. This is a pattern that may heal in acceptable fashion without surgery with bedrest. Surgery has the advantages of less pain for transfers even in the setting of minimal ambulation. Will look to neurology to guide us on expectations for her recovery and clearance for surgery. - Will continue to follow Subjective Seen today with the nurse present. Nurse that there was no events. The nurse was able to communicate somewhat. When asked as to whether she was in pain, the patient clearly stated "no". When asked if she uses a walker normally, she clearly stated "no". The patient was able to tell us her name and verbalized answer for date of but was not clearly audible. Review of Systems All systems reviewed & are unremarkable except as noted in HPI & below. Physical Exam Resting comfortably with slight neck extension and left lateral rotation. No acute distress, and no respiratory distress. RLE: Near equal leg lengths. The right does have some external rotation posture. Well-perfused. Results & Data Results & Data Laboratory Results H & H 01/01/24 01/02/24 Range/Units 08:11 05:45 Hgb 13.0 10.3 L (12.0-16.0) g/dl Hct 39.3 31.0 L (37.0-47.0) % Coagulation 01/01/24 01/01/24 Range/Units 08:11 09:13 INR Cancelled 1.1 Diagnostic Findings . PG Care Time/CCT Total # of Minutes Spent Total Time Spent with Patient: Total time spent is greater than 50% in coordination of care (as documented) at patient's floor/unit and/or counseling patient: Coding Level of Care Code 84471 SUB INP/OBS CARE 3/50MIN Diagnoses Closed displaced intertrochanteric fracture of right femur, initial encounter S72.141A Encounter type: initial encounter Fracture alignment: displaced (1) Closed intertrochanteric fracture of right femur Encounter type: initial encounter Fracture alignment: displaced Qualified Code(s): S72.141A - Displaced intertrochanteric fracture of right femur, initial encounter for closed fracture
[2024-01-03 05:15] LABS: Albumin Level 3.8 gm/dl (3.4-5.0); Bilirubin,Total 1.4 mg/dl (0.2-1.0); Calcium 9.2 mg/dl (8.6-10.3); Magnesium 2.1 mg/dl (1.7-2.4); Potassium 3.6 mmol/L (3.5-5.1)
[2024-01-03 05:22] LABS: Albumin Globulin Ratio 1.7 (0.9-2); BUN Creatinine Ratio 15.3 (10-20); Creatinine Clr Calc Pharmacy 49.3 ml/min; Est GFR (African American) 91.7 ml/min; Est GFR (Non-African American) 79.1 ml/min; Globulin 2.3 gm/dl (2.5-4.0); Phosphorus 2.3 mg/dl (2.5-4.9); Total Protein 6.1 gm/dl (6.0-8.3)
[2024-01-03 05:57] LABS: Basophils # (auto) 0.03 K/uL (0.00-0.20); Basophils % (auto) 0.4 %; Eosinophils # (auto) 0.05 K/uL (0.00-0.50); Eosinophils % (auto) 0.7 %; Hematocrit (blood only) 36.8 % (37.0-47.0); Hemoglobin 11.6 g/dl (12.0-16.0); Immature Granulocytes # (auto) 0.03 K/uL (0.01-0.20); Immature Granulocytes % (auto) 0.4 %; Lymphocytes # (auto) 1.21 K/uL (1.20-3.40); Lymphocytes % (auto) 17.4 %; Mean Corpuscular Hgb Conc 31.5 g/dL (32.0-36.0); Mean Corpuscular Volume 93.6 fL (80.0-100.0); Mean Platelet Volume 11.2 fL (9.4-12.4); Monocytes % (auto) 7.2 %; Neutrophils # (auto) 5.15 K/uL (1.40-6.50); Neutrophils % (auto) 73.9 %; Platelet Count 125 K/uL (130-400); RDW Coefficient of Variation 13.7 % (11.5-14.5); RDW Standard Deviation 47.9 fL (36.4-46.3); Red Blood Count 3.87 M/uL (4.20-5.40); White Blood Count 6.97 K/ul (4.8-10.8)
[2024-01-03] MEDS ORDERED: POTASSIUM PHOS 3 MMOL/1 ML INFUSION IV STA (08:35)
--- NOTE | 2024-01-03 08:37 | Cardiology Consultation ---
Date of Consultation January 03, 2024 Assessment & Plan (1) Encounter for pre-operative examination: (2) New onset seizure: (3) Closed intertrochanteric fracture of right femur: (4) Elevated troponin: Plan Assessment: 78 year old female admitted for new onset seizures and subsequent fall resulting in right intertrochanteric femur fracture. Request for cardiac clearance for surgical intervention. Plan: 1. Preoperative cardiac clearance 2. New onset seizure 3. Closed intertrochanteric fracture of right femur 4. Elevated troponin -Patient is resting comfortably in bed at time of examination. Does not offer any further details related to her event. Family states that her cognitive status is significantly better than yesterday. -patient carries no prior history of coronary disease or other cardiac concerns. 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 -EKG demonstrate SR with 1st degree AVB with no acute ST-T wave changes. -Mild elevation in troponin with flat trend, likely in response to her neurological event and its unclear how long patient was on the floor. -Echocardiogram obtained demonstrating the following: LVEF 55% Sigmoid septum Grade I diastolic dysfunction Non-dilated cardiac chambers No significant valvular disease -Given patient's prior history with multiple non-cardiac comorbidities, and advanced age, she will be placed at moderate risk per David Criteria for cardiac risk assessment. EKG and echocardiogram show no concerning features and patient may proceed with surgery with indicated. Discussed with patient' daughter and granddaughter risk vs benefit as well as risk for mortality if surgical intervention is not pursued. Verbalizes understanding. -We will continue to follow postoperatively as needed. Case has been discussed with Dr. Kuo. Further recommendations regarding plan of care as per his assessment. I spent a total of 40 minutes on the date of service in preparation, delivery, documentation of the care provided to the patient excluding any time spent in the performance of separately billed services. [facility]UCHO [facility] Cardiology [facility] Supervising Physician Co-Signing Physician Notes Patient was seen and examined, chart, medications, telemetry reviewed. Full assessment and plan as outlined by advanced provider above. Care and management discussed in detail had personally endorsed Patient referred for cardiac evaluation due to elevated troponin, possible preoperative evaluation. Troponins appear to be elevated secondary to demand issues of acute illness. No acute cardiac concerns Echocardiogram demonstrates normal to hyperdynamic LV function on my personal review. Operative risk would be increased secondary to underlying morbidities but no cardiac contraindication to urgent surgery I spent a total of 30 minutes on the date of service in preparation, delivery, documentation of the care provided to the patient excluding any time spent in the performance of separat History of Present Illness Reason for Consultation: Pre-op clearance Requesting Physician: Dilcia servinist Attending Physician: Laura Curran MD History of Present Illness HPI: Patient is a HTN, DM type II, CKD stage III, CVA, GERD and Parkinson's disease that presented to the ED with a Seizure Episode from the [facility] in which she resides. Per review of record, patient had been found the evening before on the bathroom floor, conscious, but incontinent of urine and unable to explain what had happened. The morning of admission, she was found to be having a generalized seizure lasting approximately one minute. Cardiology has been asked to see the patient due to a right intertrochanteric femur fracture s/t a fall during her seizure episode. Orthopedics is requesting preoperative cardiac risk assessment. Patient is awake and alert, but someone disoriented to place, time or event. Denies any chest pain, pressure or palpitations, denies any shortness of breath, PnD, pre-syncope or edema. Family is also at bedside. Per discussion with family patient has no prior cardiac history. EKG on admission demonstrates SR with 1st degree AV block. Cited previously. Rate 94 bpm Echocardiogram dated 01/01/2024 as follows: LVEF 55% Sigmoid septum Grade I diastolic dysfunction Non-dilated cardiac chambers No significant valvular disease. High Sensitivity Troponin 262.6-->395.7-->377.3 Brain MRI Brain MRI: 1. Cortical restricted effusion within the bilateral frontoparietal lobes, as described above, with associated FLAIR signal abnormality. The MR appearance is nonspecific although could represent postictal change. Additional differential considerations include ischemia, posterior reversible encephalopathy syndrome, and cerebritis. 2. 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 3. Moderate atrophy and small vessel disease. 4. No intracranial mass or pathologic enhancement. 5. Numerous foci of susceptibility artifact within the bilateral cerebral hemispheres on gradient echo sequence. The findings suggest old blood products or amyloid deposition. Allergies Allergy/AdvReac Type Severity Reaction Status Date / Time bee venom protein (honey bee) Allergy Unknown Unknown Verified 06/30/22 14:18 latex Allergy Unknown Unknown Verified 06/30/22 14:18 Sulfa (Sulfonamide Allergy Unknown Unknown Verified 06/30/22 14:18 Antibiotics) Home Medications Medication Instructions Recorded Confirmed Type carbidopa 25 mg-levodopa 100 mg 2 tab PO TID 09/29/21 01/01/24 History tablet jqwvjvvn-ucx-fdavu acid 0.4 1 tab PO DAILY ##0 09/29/21 01/01/24 History mg-lycopene 300 mcg-lutein 250 mcg tablet (CertaVite Senior) sodium phosphates 19 gram-7 118 ml SC DAILY PRN Constipation 09/29/21 01/01/24 History gram/118 mL enema (Fleet Enema) ##0 acetaminophen 325 mg capsule 650 mg PO Q4H PRN Pain/fever 09/30/21 01/01/24 History bisacodyl 10 mg rectal suppository 10 mg SC DAILY PRN Constipation 09/30/21 01/01/24 History (Dulcolax (bisacodyl)) donepezil 5 mg tablet 5 mg PO QPM 11/20/21 01/01/24 History Saccharomyces boulardii 250 mg 500 mg PO DAILY 01/01/24 01/01/24 History capsule (Florastor) aspirin 81 mg chewable tablet 81 mg PO QAM 01/01/24 01/01/24 History atorvastatin 40 mg tablet 40 mg PO QPM 01/01/24 01/01/24 History dextrose 40 % oral gel (Glucose 1 ea PO DAILY PRN Hypoglycemia 01/01/24 01/01/24 History Gel) escitalopram oxalate 5 mg tablet 5 mg PO DAILY 01/01/24 01/01/24 History famotidine 20 mg tablet 20 mg PO BID 01/01/24 01/01/24 History furosemide 20 mg tablet 20 mg PO QAM 01/01/24 01/01/24 History glucagon 1 mg/0.2 mL subcutaneous 1 mg subcut DAILY PRN Hypoglycemia 01/01/24 01/01/24 History auto-injector insulin glargine 100 unit/mL (3 4 unit subcut HS 01/01/24 01/01/24 History mL) subcutaneous pen magnesium hydroxide 400 mg/5 mL 2,400 mg PO DAILY PRN Constipation 01/01/24 01/01/24 History oral suspension (Milk of Magnesia) metformin 500 mg tablet 500 mg PO BID 01/01/24 01/01/24 History Patient History Medical History Atrial flutter Per skilled nursing records- 03/2021 while admitted for Covid- started on heparin drip- treated with Metoprolol No mention of a flutter per 06/19/21 discharge summary- no EKGs showing a flutter while admitted from 03/2021 to 05/2021 HTN (hypertension) Weakness Generalized Disorientation Covid encephalopathy 03/2021 per records - returned to baseline on discharge per records Resolved per 06/19/21 Discharge Summary History of COVID-19 Positive Covid test 03/2021 per records- admitted to [facility] Covid pneumonia while admitted 03/2021 to 05/2021- resolved Covid pneumonia per 06/19/21 discharge summary Surgical History S/P debridement (09/30/21) Excisional Debridement of Sacral Decubitus Ulcer 5cm x 4cm down to bone - Van Villa DO History of dilation and curettage History of back surgery Family History Family/Other Heart disease Mother No pertinent family history Father No pertinent family history Social History Smoking Status: Unknown if ever smoked Second Hand Exposure: No; Do You Dip or Chew Tobacco: No; Hx Alcohol Use: No Hx Substance Use: No Preferred Language: Spanish Communication Ability: Impaired Communication Ability Comment: Unable to follow commands d/t 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 Beliefs That Will Affect Care: None marital status: Current Living Situation: Senior Care current occupational status: employed How many Children do You have: 3 Feels Safe at Home: Yes Assistive Devices: Wheelchair Review of Systems Review of Systems: All systems reviewed & are unremarkable except as noted in HPI & below Physical Exam Constitutional: well developed and well nourished; no acute distress Neck: normal visual inspection and trachea midline Respiratory: normal respiratory effort; no labored breathing and no cough Auscultation: lungs clear to auscultation bilaterally; no diminished lung sounds, no crackles, no rales, no rhonchi and no wheezes Cardiovascular: Rate/Rhythm: regular rate and regular rhythm Heart Sounds: normal S1 and normal S2; no murmur Vessels: no JVD Skin: no rashes, warm and dry Results & Data Vital Signs (Past 12 Hours) Vital Signs Temp Pulse Pulse Resp BP BP Pulse Ox 01/03/24 07:49 36.8 C 88 17 156/73 H 95 01/03/24 04:27 91 H 147/83 H 01/03/24 02:53 37.1 C 88 18 165/85 H 92 01/02/24 22:51 37.7 C H 102 H 18 108/59 L 94 01/02/24 22:00 90 01/02/24 22:00 O2 Del Method 01/03/24 07:49 Room Air 01/03/24 04:27 01/03/24 02:53 Room Air 01/02/24 22:51 Room Air 01/02/24 22:00 01/02/24 22:00 Room Air Laboratory Results Cardiac Enzymes 01/03/24 Range/Units 04:21 AST 25 (13-39) U/L CBC 01/03/24 Range/Units 04:21 WBC 6.97 (4.8-10.8) K/ul RBC 3.87 L (4.20-5.40) M/uL Hgb 11.6 L (12.0-16.0) g/dl Hct 36.8 L (37.0-47.0) % Plt Count 125 L (130-400) K/uL Neut # (Auto) 5.15 (1.40-6.50) K/uL Lymph # (Auto) 1.21 (1.20-3.40) K/uL [place] # (Auto) 0.50 (0.11-0.59) K/uL Eos # (Auto) 0.05 (0.00-0.50) K/uL Baso # (Auto) 0.03 (0.00-0.20) K/uL Comprehensive Metabolic Panel 01/03/24 Range/Units 04:21 Sodium 143 (136-145) mmol/L Potassium 3.6 (3.5-5.1) mmol/L Chloride 111 H (98-107) mmol/L Carbon Dioxide 23 (21-32) mmol/L BUN 11 (6-23) mg/dl Creatinine 0.72 (0.6-1.2) mg/dl Glucose 164 H (70-99(Fasting)) mg/dl Calcium 9.2 (8.6-10.3) mg/dl AST 25 (13-39) U/L ALT 9 (7-52) U/L Alkaline Phosphatase 87 (34-104) U/L Total Protein 6.1 (6.0-8.3) gm/dl Albumin 3.8 (3.4-5.0) gm/dl Intake and Output 01/02/24 01/03/24 01/03/24 22:59 06:59 14:59 Intake Total 605 / 2876.667 1000 / 6.667 Output Total 700 / 851 Balance -95 / 2024. 999 / 2024. Intake: IV 605 / 2876.667 1000 / 2876.667 Acetaminophen 1,000 mg In 100 100 / 100 ml @ 400 mls/hr IV Q8H PRN Rx#: [id number] D5w and Nss 1,000 ml @ 65 mls/ 1000 / 1000 hr IV [id number] CHIKI Rx#:[id number] Magnesium Sulfate / D5w 1 gm In 100 / 176.667 100 ml @ 50 mls/hr IV Q2H CHIKI Rx#:[id number] Potassium Chloride / Wtr 10 meq 300 / 390 In 100 ml @ 100 mls/hr IV Q1H CHIKI Rx#:[id number] levETIRAcetam IV 500 mg In 105 / 210 Sodium Chlor 0.9% Mini-B 100 ml @ 420 mls/hr IV Q12 CHIKI Rx#: [id number] Oral 0 / 0 Output: Urine Amount (Catheter) 700 / 850 Ortiz/Indwelling 700 / 850 # Bowel Movements Other: # Unmeasured Voids 400 Weight 58.2 kg Weight Measurement Method Built in [facility] Diagnostic Findings Doppler carotid studies done earlier this month from outpatient [facility]. Right carotid artery duplex examination indicates evidence of less than 50% stenosis of the internal carotid artery. Left carotid artery duplex examination indicates evidence of less than 50% stenosis of the internal carotid artery. (3) Closed intertrochanteric fracture of right femur Encounter type: initial encounter Fracture alignment: displaced Qualified Code(s): S72.141A - Displaced intertrochanteric fracture of right femur, initial encounter for closed fracture
[2024-01-03] MEDS: POTASSIUM PHOSPHATE 15 MMOL in SODIUM CHLORIDE 0.9% 250 ML IV ONE (09:34)
--- NOTE | 2024-01-03 10:20 | Orthopedic Progress Note ---
Date of Service January 03, 2024 Assessment & Plan (1) Closed intertrochanteric fracture of right femur: Hospital day 3 after being admitted for seizure activity following a fall, and incidental finding of a right intertrochanteric femur fracture. - Anesthesia was consulted and recommended cardiology as well as the EEG to be completed first. Awaiting Cardio today. - Remain NPO for possible surgical intervention. - Continue bedrest - If there was any potential for returning to ambulatory activities, then s urgical stabilization of the hip is the best care. The alternative to surgery would be bedrest for up to 6 or 8 weeks. This is a pattern that may heal in acceptable fashion without surgery with bedrest. Surgery has the advantages of less pain for transfers even in the setting of minimal ambulation. Will look to neurology to guide us on expectations for her recovery and clearance for surgery. - Will continue to follow Subjective Loly is an 78-year-old female with baseline dementia who sustained a fall and multiple seizures over the weekend. Orthopedics was consulted due to a right hip fracture. She was planned to have surgical intervention on 01/02/2024 in the AM, however anesthesia was requesting cardiology to see her today for clearance. At today's visit, did discuss with the nurse the situation over the weekend. The patient was able to state her name and date of , however was not able to provide much more of a conversation, specifically how her pain in her right hip was. Awaiting cardiology today. She is NPO. Review of Systems All systems reviewed & are unremarkable except as noted in HPI & below. Physical Exam General: She is is able to be alerted by lifting her bed. She is able to tell us her name and her date of . Baseline dementia. Right lower extremity: No erythema, edema or open wounds. She is mildly tender along the right hip. Negative logroll. Sensation intact. Distal pulses palpated. Capillary for less than 3 seconds. Results & Data Results & Data Laboratory Results . Diagnostic Findings . PG Care Time/CCT Total # of Minutes Spent Total Time Spent with Patient: Total time spent is greater than 50% in coordination of care (as documented) at patient's floor/unit and/or counseling patient: Coding Level of Care Code 48341 SUB INP/OBS CARE 3/50MIN Diagnoses Closed displaced intertrochanteric fracture of right femur, initial encounter S72.141A Encounter type: initial encounter Fracture alignment: displaced (1) Closed intertrochanteric fracture of right femur Encounter type: initial encounter Fracture alignment: displaced Qualified Code(s): S72.141A - Displaced intertrochanteric fracture of right femur, initial encounter for closed fracture
--- NOTE | 2024-01-03 11:15 | Communication Note ---
Date of Service: January 03, 2024 Ok from Neurology perspective to proceed with Orthopedic surgery. Recommend continue to monitor, proceed with neurology recommendations.
--- NOTE | 2024-01-03 14:14 | Hospitalist Progress Note ---
Date of Service January 03, 2024 Assessment & Plan (1) Fall: (2) Seizure: (3) Elevated troponin: Plan: 78-year-old female with history of diabetes type 2, hypertension, CKD stage III, CVA, GERD, Parkinson's dementia presenting [facility]: Right femur fracture Status post fall Hip x-ray: Acute comminuted displaced intratrochanteric fracture, right femur Orthopedic service consulted, planning for OR, timing not sure. Patient is moderate to high risk for cardiopulmonary perioperative complications in light of comorbidities and age for much needed hip sx. Pt reports pain under control. d/w neuro ok for sx. Cardio and neuro evaled, cleared for sx. Awaiting further ortho recs. Mild troponin elevation: No cardiac symptoms noted. Troponin flat trended around 300, EKG no signs of acute ischemia or infarct. Echocardiogram didnot note any regional wall motion abnormality. New onset seizure, likely related to her dementia and amyloid angiopathy vs Seizure secondary to head concussion after the fall Seizure causing the fall? Pt presented after noted seizure episode at [facility], had additional epi sode of seizure in the ED. Admitting Brain MRI: 1. Cortical restricted effusion within the bilateral frontoparietal lobes, as described above, with associated FLAIR signal abnormality. The MR appearance is nonspecific although could represent postictal change. Additional differential considerations include ischemia, posterior reversible encephalopathy syndrome, and cerebritis. 2. 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 3. Moderate atrophy and small vessel disease. 4. No intracranial mass or pathologic enhancement. 5. Numerous foci of susceptibility artifact within the bilateral cerebral hemispheres on gradient echo sequence. The findings suggest old blood products or amyloid deposition. s/p loading dose of Keppra in the ER Continue with Keppra 500 mg every 12 hours EEG taken, follow. Neuro evaled, agrees w/ keppra dose. Aricept discontinued. Seizure precautions, monitor and replete electrolytes, n.p.o. until speech eval, and npo midnight for possible sx bertram. c/w D5NS at 65 ml/hr. Hyperglycemia, diabetes type 2: Usually on insulin glargine 4 units at bedtime, metformin 500 mg twice daily. Insulin sliding scale. Consult pharmacy glycemic control CKD stage III: At baseline. Continue to monitor. History of thalamic CVA: On aspirin 81 mg p.o. daily as well as Lipitor 40 mg daily. Brain MRI as above GERD: Continue famotidine Parkinson's dementia, depression: Continue Sinemet, donepezil, escitalopram DVT prophylaxis: Heparin subcu twice daily CODE STATUS: Full code as per [facility] facility documentation Disposition: Lives at [facility]. PT/OT after Sx , CM to assist w/ dc plan. updated pt's dtr and then son/dil at two separate times. Total time spent: 60 min. Admission and Anticipated Discharge Date Admission Date: January 01, 2024 Subjective Patient was seen and examined at bedside. Patient was lying in bed, on RA, more alert today, oriented to self, appears lethargic/frail/ill. Patient denies pain even on right hip exam. Per RN, no new acute events overnight, taking p.o. medications. Pt's Dtr was updated at bedside, answered all her questions. Pt's son Bertram and NEIDA Santos were met at bedside early afternoon during second visit to pt's room. Updated them about my conversation w/ neurology and cardiology. They are waiting for plan regarding orthopaedic surgery. Requested RN to facilitate their talk to Sx to answer their surgery related timing and questions. Physical Exam Physical Exam: General- lethargic, oriented x self, appears frail/weak/lethargic. Head- atraumatic Eyes- PERRL,anicteric ENT- oropharynx clear Neck- supple, no JVD, no adenopathy, no thyromegaly; carotids +2/2, no bruits appreciated Lungs- clear to auscultation bilaterally, no rales/wheezes Heart- normal rate, regular rhythm; no murmur, no gallop, no rub appreciated Abdomen- normal bowel sounds, nondistended, soft, nontender, no masses or hepatosplenomegaly Extremities- Right lower extremity externally rotated, painful rom, tender right hip. no pretibial edema, no calf tenderness; peripheral pulses intact Skin- warm & dry Results & Data Results & Data Vital Signs (Past 12 Hours) Vital Signs Temp Pulse Pulse Resp BP BP Pulse Ox 01/03/24 11:30 36.9 C 84 17 129/74 95 01/03/24 07:49 36.8 C 88 17 156/73 H 95 01/03/24 07:00 89 01/03/24 04:27 91 H 147/83 H 01/03/24 02:53 37.1 C 88 18 165/85 H 92 O2 Del Method 01/03/24 11:30 Room Air 01/03/24 07:49 Room Air 01/03/24 07:00 01/03/24 04:27 01/03/24 02:53 Room Air (1) Fall Encounter type: initial encounter Qualified Code(s): W19.XXXA - Unspecified fall, initial encounter
--- NOTE | 2024-01-03 14:40 | Pharmacy Report ---
Pharmacy Glycemic Short Note 2 - Date of Service January 03, 2024 - Glycemic Short BSG Results (Last 24 hours): 01/02/24 01/02/24 01/02/24 15:58 20:18 23:51 Glucose POC Glucose 182 H 151 H 144 H 01/03/24 01/03/24 01/03/24 04:21 05:28 07:55 Glucose 164 H POC Glucose 180 H 163 H 01/03/24 12:09 Glucose POC Glucose 196 H OUTPATIENT ANTIDIABETIC REGIMEN: * Insulin glargine 4 units SC HS * Metformin 500 mg PO BIDM HbA1c ordered for tomorrow AM (01/02/24) ASSESSMENT: 01/02 * Loly received 8 units of insulin yesterday (2 were basal) * Fasting BSG this AM acceptable, continue current basal regimen * She is currently on D5NSS for NPO status, potentially to OR tomorrow, Novolog appears to be correcting at this time, no changes. 12/31: * NC is an 78 year old female who presents to ED w/ right femur fracture s/p fall * Plan at this point is OR tomorrow or Wednesday, NPO at this time * Blood sugars elevated on presentation > 250 mg/dL * Will be conservative with initial insulin dosing to prioritize minimization of hypoglycemia PLAN FOR INPATIENT GLYCEMIC CONTROL: * Hold outpatient oral diabetes medications * Basal insulin * Lantus 0-2-4 units SQ HS (see EHR for details) * Bolus insulin * NovoLog per scale ACHS or Q4hrs while NPO * Goal Range: Low 120 mg/dL - High 160 mg/dL * Correction Factor: 30 mg/dL/unit * Nutritional / Prandial insulin per carb ratio of 1 unit per 15 grams CHO consumed
--- NOTE | 2024-01-03 16:18 | Electroencephalogram ---
EEG Procedure Note Date of Service January 03, 2024 Start / End Times Start Time: 1016 End Time: 1036 Referring Physician Hardeep Araujo History A 78 year old female with seizure like activity. EEG performed for evaluation of epileptiform activity. Home Medication List Medication Instructions Recorded Confirmed Type carbidopa 25 mg-levodopa 100 mg 2 tab PO TID 09/29/21 01/01/24 History tablet lkfxfvxt-rmm-kseqk acid 0.4 1 tab PO DAILY ##0 09/29/21 01/01/24 History mg-lycopene 300 mcg-lutein 250 mcg tablet (CertaVite Senior) sodium phosphates 19 gram-7 118 ml OK DAILY PRN Constipation 09/29/21 01/01/24 History gram/118 mL enema (Fleet Enema) ##0 acetaminophen 325 mg capsule 650 mg PO Q4H PRN Pain/fever 09/30/21 01/01/24 History bisacodyl 10 mg rectal suppository 10 mg OK DAILY PRN Constipation 09/30/21 01/01/24 History (Dulcolax (bisacodyl)) donepezil 5 mg tablet 5 mg PO QPM 11/20/21 01/01/24 History Saccharomyces boulardii 250 mg 500 mg PO DAILY 01/01/24 01/01/24 History capsule (Florastor) aspirin 81 mg chewable tablet 81 mg PO QAM 01/01/24 01/01/24 History atorvastatin 40 mg tablet 40 mg PO QPM 01/01/24 01/01/24 History dextrose 40 % oral gel (Glucose 1 ea PO DAILY PRN Hypoglycemia 01/01/24 01/01/24 History Gel) escitalopram oxalate 5 mg tablet 5 mg PO DAILY 01/01/24 01/01/24 History famotidine 20 mg tablet 20 mg PO BID 01/01/24 01/01/24 History furosemide 20 mg tablet 20 mg PO QAM 01/01/24 01/01/24 History glucagon 1 mg/0.2 mL subcutaneous 1 mg subcut DAILY PRN Hypoglycemia 01/01/24 01/01/24 History auto-injector insulin glargine 100 unit/mL (3 4 unit subcut HS 01/01/24 01/01/24 History mL) subcutaneous pen magnesium hydroxide 400 mg/5 mL 2,400 mg PO DAILY PRN Constipation 01/01/24 01/01/24 History oral suspension (Milk of Magnesia) metformin 500 mg tablet 500 mg PO BID 01/01/24 01/01/24 History Inpatient Medication List Aspirin (Aspirin 81 Mg Chew) 81 mg PO QAM CHIKI Stop: 02/01/24 08:59 Last Admin: 01/03/24 08:06 Dose: 81 mg Documented By: Admin: 01/02/24 09:40 Dose: 81 mg Documented By: RYANNE Atorvastatin Calcium (Atorvastatin 40 Mg Tab) 40 mg PO QPM CHIKI Stop: 01/31/24 20:59 Last Admin: 01/02/24 22:05 Dose: Not Given Documented By: Admin: 01/01/24 21:04 Dose: Not Given Documented By: RONDA Carbidopa/Levodopa (Carbidopa/Levodopa 25/100mg Tab) 2 tab PO TID CHIKI Stop: 01/31/24 13:59 Last Admin: 01/03/24 13:29 Dose: 2 tab Documented By: Admin: 01/03/24 08:05 Dose: 2 tab Documented By: Admin: 01/02/24 22:06 Dose: Not Given Documented By: Admin: 01/02/24 13:21 Dose: 2 tab Documented By: Admin: 01/02/24 09:29 Dose: 2 tab Documented By: Admin: 01/01/24 21:04 Dose: Not Given Documented By: Admin: 01/01/24 15:02 Dose: Not Given Documented By: VEE Escitalopram Oxalate (Escitalopram Oxalate 10 Mg Tab) 5 mg PO DAILY [facility] Stop: 02/01/24 08:59 Last Admin: 01/03/24 08:06 Dose: 5 mg Documented By: Admin: 01/02/24 09:30 Dose: 5 mg Documented By: RYANNE Heparin Sodium (Porcine) (Heparin Sod 5,000 Unit/0.5 Ml Vial) 5,000 units SQ Q12 CHIKI Stop: 01/31/24 20:59 Last Admin: 01/03/24 08:07 Dose: 5,000 units Documented By: Admin: 01/02/24 21:37 Dose: 5,000 units Documented By: Admin: 01/02/24 09:40 Dose: 5,000 units Documented By: Admin: 01/01/24 21:05 Dose: 5,000 units Documented By: RONDA Hydralazine HCl (Hydralazine Hcl 20 Mg/Ml Vial) 5 mg IV Q6H PRN PRN Reason: systolic bp > 160 Stop: 01/31/24 14:31 Last Admin: 01/01/24 17:58 Dose: 5 mg Documented By: VEE Levetiracetam 500 mg/ Sodium (Chloride) 105 mls @ 420 mls/hr IV Q12 CHIKI Stop: 01/31/24 20:59 Last Infusion: 01/03/24 08:25 Dose: Infused Documented By: Admin: 01/03/24 08:10 Dose: 420 mls/hr Documented By: Infusion: 01/02/24 22:06 Dose: Infused Documented By: Admin: 01/02/24 21:47 Dose: 420 mls/hr Documented By: Infusion: 01/02/24 10:39 Dose: Infused Documented By: Admin: 01/02/24 10:15 Dose: 420 mls/hr Documented By: Infusion: 01/01/24 21:42 Dose: Infused Documented By: Admin: 01/01/24 21:14 Dose: 420 mls/hr Documented By: RONDA Acetaminophen (Ofirmev) 1,000 mg in 100 mls @ 400 mls/hr IV Q8H PRN PRN Reason: fever/pain Stop: 01/04/24 18:25 Last Infusion: 01/03/24 13:40 Dose: Infused Documented By: Admin: 01/03/24 13:22 Dose: 400 mls/hr Documented By: Infusion: 01/02/24 20:11 Dose: Infused Documented By: Admin: 01/02/24 19:42 Dose: 400 mls/hr Documented By: Infusion: 01/02/24 03:31 Dose: Infused Documented By: Admin: 01/02/24 03:05 Dose: 400 mls/hr Documented By: Infusion: 01/01/24 19:12 Dose: Infused Documented By: Admin: 01/01/24 18:33 Dose: 400 mls/hr Documented By: VEE Famotidine (Pepcid 20mg Iv Push) 20 mg in 5 mls @ 2.5 mls/min IV Q12H CHIKI Stop: 01/31/24 20:59 Last Admin: 01/03/24 08:29 Dose: 2.5 mls/min Documented By: Admin: 01/02/24 21:47 Dose: 2.5 mls/min Documented By: Admin: 01/02/24 10:17 Dose: 2.5 mls/min Documented By: Admin: 01/01/24 21:36 Dose: 2.5 mls/min Documented By: RONDA Dextrose/Sodium Chloride (D5w And Nss) 1,000 mls @ 65 mls/hr IV .[id number] CHIKI Stop: 01/05/24 03:02 Last Admin: 01/03/24 05:22 Dose: 65 mls/hr Documented By: Infusion: 01/03/24 04:54 Dose: Infused Documented By: Admin: 01/02/24 13:30 Dose: 65 mls/hr Documented By: RYANNE Insulin Aspart (Insulin Aspart Per Unit Charge) 0 units SC Q4 CHIKI Stop: 01/31/24 12:34 Last Admin: 01/03/24 13:19 Dose: 1 units Documented By: RYANNE Co-signed By: VERA Admin: 01/03/24 08:42 Dose: 1 units Documented By: RYANNE Co-signed By: JERRICA Admin: 01/03/24 05:36 Dose: 2 units Documented By: RONDA Co-signed By: PHIL Admin: 01/03/24 00:17 Dose: 1 units Documented By: RONDA Co-signed By: HEL Admin: 01/02/24 21:36 Dose: 1 units Documented By: RONDA Co-signed By: PHIL Admin: 01/02/24 16:29 Dose: 2 units Documented By: RYANNE Co-signed By: TONY Admin: 01/02/24 11:32 Dose: 1 units Documented By: RYANNE Co-signed By: BT Admin: 01/02/24 09:19 Dose: Not Given Documented By: Admin: 01/02/24 04:30 Dose: 1 units Documented By: ORNDA Co-signed By: KARON Admin: 01/02/24 00:20 Dose: 2 units Documented By: RONDA Co-signed By: CR Admin: 01/01/24 21:02 Dose: 2 units Documented By: RONDA Co-signed By: KARON Admin: 01/01/24 16:58 Dose: 5 units Documented By: VEE Co-signed By: SERGEI Admin: 01/01/24 12:43 Dose: 3 units Documented By: VEE Co-signed By: TONY Insulin Glargine (Lantus Per Unit Charge) 0 units SC DAILY@2000 CHIKI; Protocol Stop: 01/31/24 19:59 Last Admin: 01/02/24 21:36 Dose: 2 units Documented By: RONDA Co-signed By: PHIL Admin: 01/01/24 21:02 Dose: 2 units Documented By: RONDA Co-signed By: KARON Multivitamins/Minerals (Cerovite Adv Formula Tab) 1 tab PO DAILY [facility] Stop: 02/01/24 08:59 Last Admin: 01/03/24 08:05 Dose: 1 tab Documented By: Admin: 01/02/24 09:29 Dose: 1 tab Documented By: RYANNE Saccharomyces Boulardii (Saccharomyces Boulardii 250 Mg Cap) 500 mg PO DAILY [facility] Stop: 02/01/24 08:59 Last Admin: 01/03/24 08:07 Dose: 500 mg Documented By: Admin: 01/02/24 09:29 Dose: 500 mg Documented By: RYANNE Discontinued Medications Donepezil HCl (Donepezil Hcl 5 Mg Tab) 5 mg PO QPM [facility] Stop: 01/31/24 20:59 Last Admin: 01/01/24 21:05 Dose: Not Given Documented By: RONDA Gadobutrol (Gadobutrol 65ml Vial) 5.5 ml IV ONCE ONE Stop: 01/01/24 11:21 Last Admin: 01/01/24 11:21 Dose: 5.5 ml Documented By: DAIANA Sodium Chloride (Nss) 500 mls @ 999 mls/hr IV .Q31M [facility] Stop: 01/01/24 08:15 Last Infusion: 01/01/24 09:20 Dose: Infused Documented By: Admin: 01/01/24 08:20 Dose: 500 mls/hr Documented By: BRAEDEN Sodium Chloride (Nss) 1,000 mls @ 75 mls/hr IV .[id number] [facility] Stop: 01/31/24 12:19 Last Infusion: 01/02/24 13:33 Dose: Infused Documented By: Admin: 01/02/24 04:20 Dose: 75 mls/hr Documented By: Infusion: 01/02/24 01:50 Dose: Infused Documented By: Admin: 01/01/24 12:30 Dose: 75 mls/hr Documented By: VEE Potassium Chloride (K Rakesh / Wtr) 10 meq in 100 mls @ 100 mls/hr IV Q1H CHIKI Stop: 01/02/24 16:14 Last Infusion: 01/02/24 17:55 Dose: Infused Documented By: Admin: 01/02/24 16:56 Dose: 100 mls/hr Documented By: Infusion: 01/02/24 16:39 Dose: Infused Documented By: Admin: 01/02/24 15:39 Dose: 100 mls/hr Documented By: Infusion: 01/02/24 15:39 Dose: Infused Documented By: Admin: 01/02/24 14:15 Dose: 100 mls/hr Documented By: Infusion: 01/02/24 14:15 Dose: Infused Documented By: Admin: 01/02/24 13:21 Dose: 100 mls/hr Documented By: RYANNE Magnesium Sulfate/Dextrose (Magnesium Sulfate / D5w) 1 gm in 100 mls @ 50 mls/hr IV Q2H CHIKI Stop: 01/02/24 16:14 Last Infusion: 01/02/24 16:55 Dose: Infused Documented By: Admin: 01/02/24 14:53 Dose: 50 mls/hr Documented By: Infusion: 01/02/24 14:53 Dose: Infused Documented By: Admin: 01/02/24 13:21 Dose: 50 mls/hr Documented By: RYANNE Potassium Phosphate 15 mmol/ (Sodium Chloride) 255 mls @ 102 mls/hr IV ONE ONE Stop: 01/03/24 11:14 Last Infusion: 01/03/24 12:05 Dose: Infused Documented By: Admin: 01/03/24 09:34 Dose: 102 mls/hr Documented By: RYANNE Levetiracetam (Levetiracetam 500 Mg/5 Ml Vial) 1,500 mg IV NOW STA Stop: 01/01/24 07:42 Last Admin: 01/01/24 08:34 Dose: 1,500 mg Documented By: BRAEDEN Lorazepam (Lorazepam 1 Mg/1 Ml Syr Ed Inj Use) Confirm Administered Dose 1 mg .ROUTE .[employer] [facility] ONE Stop: 01/01/24 08:29 Last Admin: 01/01/24 08:28 Dose: 1 mg Documented By: BRAEDEN Description This is a 21 electrode EEG with a single channel dedicated to limited EKG. The electrodes were placed in accordance with the International 10-20 system. REPORT: At the onset of the EEG the patient is awake. The background is disorganized and consist of an admixture of theta delta activity with some superimposed faster frequencies. No stage II sleep transients are seen. Photic stimulation does not induce any additional abnormalities. Interpretation IMPRESSION: This is an abnormal awake and drowsy routine EEG due to generalized background slowing suggestive of a non specific encephalopathy. There is no evidence of epileptiform activity.
[2024-01-04 07:04] LABS: BUN Creatinine Ratio 16.4 (10-20); Calcium 8.1 mg/dl (8.6-10.3); Creatinine Clr Calc Pharmacy 48.6 ml/min; Est GFR (African American) 90.2 ml/min; Est GFR (Non-African American) 77.8 ml/min; Magnesium 1.8 mg/dl (1.7-2.4); Potassium 3.4 mmol/L (3.5-5.1)
[2024-01-04 07:57] LABS: Hematocrit (blood only) 25.3 % (37.0-47.0); Hemoglobin 8.3 g/dl (12.0-16.0); Mean Corpuscular Hemoglobin 29.9 pg (25.0-34.0); Mean Corpuscular Hgb Conc 32.8 g/dL (32.0-36.0); Red Blood Count 2.78 M/uL (4.20-5.40); White Blood Count 4.94 K/ul (4.8-10.8)
[2024-01-04 07:58] LABS: Basophils # (auto) 0.01 K/uL (0.00-0.20); Basophils % (auto) 0.2 %; Eosinophils # (auto) 0.09 K/uL (0.00-0.50); Eosinophils % (auto) 1.8 %; Immature Granulocytes # (auto) 0.01 K/uL (0.01-0.20); Immature Granulocytes % (auto) 0.2 %; Lymphocytes # (auto) 1.49 K/uL (1.20-3.40); Lymphocytes % (auto) 30.2 %; Mean Platelet Volume 10.5 fL (9.4-12.4); Monocytes # (auto) 0.53 K/uL (0.11-0.59); Monocytes % (auto) 10.7 %; Neutrophils # (auto) 2.81 K/uL (1.40-6.50); Neutrophils % (auto) 56.9 %; Platelet Count 125 K/uL (130-400); RDW Standard Deviation 46.8 fL (36.4-46.3)
[2024-01-04] MEDS: POTASSIUM CHLORIDE / WTR 10 MEQ/100 ML PLCT IV SCH (10:27)
--- NOTE | 2024-01-04 10:57 | Orthopedic Progress Note ---
Date of Service January 04, 2024 Assessment & Plan (1) Closed intertrochanteric fracture of right femur: NPO. Heparin was held today. Plan for OR today with Dr Baez for IM nailing. Procedure explained to her and daughter in law including risks, benefits, and alternatives to surgery. They want to proceed with surgery. She was seen and cleared by Cardiology. Consent obtained. Subjective .78 year old patient with right hip fx. Pain with movement of her hip. Daughter in law, power of reliner, is here with her today. Review of Systems All systems reviewed & are unremarkable except as noted in HPI & below. Physical Exam . alert, NAD Right leg: shortened and externally rotated. NVI. Results & Data Results & Data Laboratory Results . Diagnostic Findings . PG Care Time/CCT Total # of Minutes Spent Total Time Spent with Patient: Total time spent is greater than 50% in coordination of care (as documented) at patient's floor/unit and/or counseling patient: Coding Level of Care Code 50093 SUB INP/OBS CARE 2/35MIN Diagnoses Closed displaced intertrochanteric fracture of right femur, initial encounter S72.141A Encounter type: initial encounter Fracture alignment: displaced (1) Closed intertrochanteric fracture of right femur Encounter type: initial encounter Fracture alignment: displaced Qualified Code(s): S72.141A - Displaced intertrochanteric fracture of right femur, initial encounter for closed fracture
--- NOTE | 2024-01-04 12:09 | History & Physical Bridge Note ---
Date of Service January 04, 2024 History & Physical Bridge Note I have examined the patient, reviewed the History & Physical and in the interval since the performance of the History & Physical I have noted the following changes of clinical significance: no changes noted
[2024-01-04] MEDS ORDERED: ONDANSETRON INJ 2 MG/ML 2 ML VIAL ONE (12:16)
[2024-01-04] MEDS ORDERED: PROPOFOL IV EMULSION 10 MG/ML 20 ML VIAL IV ONE (12:16)
[2024-01-04] MEDS ORDERED: LIDOCAINE 2% 2 ML VIAL/AMP(20MG/ML) INFIL ONE (12:16)
[2024-01-04] MEDS ORDERED: HYDROmorphone INJ 2 MG/ML SYR/VIAL ONE (12:17)
--- NOTE | 2024-01-04 12:24 | Anesthesiology Consultation ---
Date of Service January 04, 2024 Assessment & Plan Chart Review Chart Review: Acceptable Risk for Surgery and Patient NOT seen in Pre Admission Testing History Surgery Operation Date: 01/02/24 07:30 Proposed Procedures p Intramedullary Moustapha Femur - Mane Bonds MD Operation Date: 01/04/24 12:00 Proposed Procedures p Right IM Moustapha Nailing - Flaquito Baez MD Height/Weight Height: 5 ft 2 in Weight: 59.1 kg Allergies Allergy/AdvReac Type Severity Reaction Status Date / Time bee venom protein (honey bee) Allergy Unknown Unknown Verified 06/30/22 14:18 latex Allergy Unknown Unknown Verified 06/30/22 14:18 Sulfa (Sulfonamide Allergy Unknown Unknown Verified 06/30/22 14:18 Antibiotics) Medications Home Medications Medication Instructions Recorded Confirmed Last Taken carbidopa 25 mg-levodopa 100 mg 2 tab PO TID 09/29/21 01/01/24 09/30/21 08:00 tablet fwarcobg-gfp-rtspi acid 0.4 1 tab PO DAILY ##0 09/29/21 01/01/24 09/29/21 08:00 mg-lycopene 300 mcg-lutein 250 mcg tablet (CertaVite Senior) sodium phosphates 19 gram-7 118 ml NE DAILY PRN Constipation 09/29/21 01/01/24 Unknown gram/118 mL enema (Fleet Enema) ##0 acetaminophen 325 mg capsule 650 mg PO Q4H PRN Pain/fever 09/30/21 01/01/24 Unknown bisacodyl 10 mg rectal suppository 10 mg NE DAILY PRN Constipation 09/30/21 01/01/24 Unknown (Dulcolax (bisacodyl)) donepezil 5 mg tablet 5 mg PO QPM 11/20/21 01/01/24 Unknown Saccharomyces boulardii 250 mg 500 mg PO DAILY 01/01/24 01/01/24 Unknown capsule (Florastor) aspirin 81 mg chewable tablet 81 mg PO QAM 01/01/24 01/01/24 Unknown atorvastatin 40 mg tablet 40 mg PO QPM 01/01/24 01/01/24 Unknown dextrose 40 % oral gel (Glucose 1 ea PO DAILY PRN Hypoglycemia 01/01/24 01/01/24 Unknown Gel) escitalopram oxalate 5 mg tablet 5 mg PO DAILY 01/01/24 01/01/24 Unknown famotidine 20 mg tablet 20 mg PO BID 01/01/24 01/01/24 Unknown furosemide 20 mg tablet 20 mg PO QAM 01/01/24 01/01/24 Unknown glucagon 1 mg/0.2 mL subcutaneous 1 mg subcut DAILY PRN Hypoglycemia 01/01/24 01/01/24 Unknown auto-injector insulin glargine 100 unit/mL (3 4 unit subcut HS 01/01/24 01/01/24 Unknown mL) subcutaneous pen magnesium hydroxide 400 mg/5 mL 2,400 mg PO DAILY PRN Constipation 01/01/24 01/01/24 Unknown oral suspension (Milk of Magnesia) metformin 500 mg tablet 500 mg PO BID 01/01/24 01/01/24 Unknown Active Medications Generic Name Dose Route Start Last Admin Trade Name Freq PRN Reason Stop Dose Admin Aspirin 81 mg 01/02/24 09:00 01/04/24 08:34 Aspirin 81 Mg Chew PO 02/01/24 08:59 81 mg QAM CHIKI Administration Atorvastatin Calcium 40 mg 01/01/24 21:00 01/03/24 21:14 Atorvastatin 40 Mg Tab PO 01/31/24 20:59 40 mg QPM CHIKI Administration Carbidopa/Levodopa 2 tab 01/01/24 14:00 01/04/24 08:34 Carbidopa/Levodopa 25/100mg Tab PO 01/31/24 13:59 2 tab TID CHIKI Administration Escitalopram Oxalate 5 mg 01/02/24 09:00 01/04/24 08:34 Escitalopram Oxalate 10 Mg Tab PO 02/01/24 08:59 5 mg DAILY CHIKI Administration Heparin Sodium (Porcine) 5,000 units 01/01/24 21:00 01/04/24 08:29 Heparin Sod 5,000 Unit/0.5 Ml Vial SQ 01/31/24 20:59 Not Given Q12 CHIKI Hydralazine HCl 5 mg 01/01/24 14:32 01/01/24 17:58 Hydralazine Hcl 20 Mg/Ml Vial IV 01/31/24 14:31 5 mg Q6H PRN Administration systolic bp > 160 Levetiracetam 500 mg/ Sodium 105 mls @ 420 mls/hr 01/01/24 21:00 01/04/24 08:45 Chloride IV 01/31/24 20:59 Infused Q12 CHIKI Infusion Acetaminophen 1,000 mg in 100 mls @ 400 mls/hr 01/01/24 18:26 01/03/24 13:40 Ofirmev IV 01/04/24 18:25 Infused Q8H PRN Infusion fever/pain Famotidine 20 mg in 5 mls @ 2.5 mls/min 01/01/24 21:00 01/04/24 08:38 Pepcid 20mg Iv Push IV 01/31/24 20:59 2.5 mls/min Q12H CHIKI Administration Dextrose/Sodium Chloride 1,000 mls @ 65 mls/hr 01/02/24 13:30 01/03/24 21:51 D5w And Nss IV 01/05/24 03:02 65 mls/hr .[id number] CHIKI Administration Insulin Aspart 0 units 01/01/24 12:35 01/04/24 08:39 Insulin Aspart Per Unit Charge SC 01/31/24 12:34 2 units Q4 CHIKI Administration Insulin Glargine 0 units 01/01/24 20:00 01/03/24 21:02 Lantus Per Unit Charge NC 01/31/24 19:59 2 units DAILY@2000 CHIKI Administration Protocol Multivitamins/Minerals 1 tab 01/02/24 09:00 01/04/24 08:34 Cerovite Adv Formula Tab PO 02/01/24 08:59 1 tab DAILY CHIKI Administration Saccharomyces Boulardii 500 mg 01/02/24 09:00 01/04/24 08:34 Saccharomyces Boulardii 250 Mg Cap PO 02/01/24 08:59 500 mg DAILY CHIKI Administration NPO Date Last Intake of Fluids: 01/04/24 Time Last Intake of Fluids: 07:00 Last Intake of Fluids Comment: sips of water with meds Date Last Intake of Solids: 01/01/24 Past Medical History Medical History Atrial flutter Per [facility] records- 03/2021 while admitted for Covid- started on heparin drip- treated with Metoprolol No mention of a flutter per 06/19/21 discharge summary- no EKGs showing a flutter while admitted from 03/2021 to 05/2021 HTN (hypertension) Weakness Generalized Disorientation Covid encephalopathy 03/2021 per records - returned to baseline on discharge per records Resolved per 06/19/21 Discharge Summary History of COVID-19 Positive Covid test 03/2021 per records- admitted to [facility] Covid pneumonia while admitted 03/2021 to 05/2021- resolved Covid pneumonia per 06/19/21 discharge summary Past Family History Family History Family/Other Heart disease Mother No pertinent family history Father No pertinent family history Past Surgical History Surgical History S/P debridement (09/30/21) Excisional Debridement of Sacral Decubitus Ulcer 5cm x 4cm down to bone - [place] DO History of dilation and curettage History of back surgery Social History Smoking Status: Unknown if ever smoked Do You Dip or Chew Tobacco: No Hx Alcohol Use: No Hx Substance Use: No Physical Exam Vital Signs Last Vital Signs Temp 37.2 C 01/04/24 11:23 Pulse 69 01/04/24 11:23 Resp 18 01/04/24 11:23 BP 118/57 L 01/04/24 11:23 Pulse Ox 94 01/04/24 11:23 O2 Del Method Room Air 01/04/24 11:23 O2 Flow Rate 4 01/02/24 19:18 Testing Laboratory Results 01/04/24 07:28 01/04/24 06:20 PT 11.9 Seconds (9.0-12.0) 01/01/24 09:13 INR 1.1 (0.9-1.1) 01/01/24 09:13 APTT 23 Seconds (21-31) 01/01/24 09:13 Hemoglobin A1c 7.2 % (4.5-5.6) H 01/02/24 05:45 Urine Color Yellow 01/01/24 07:57 Urine Appearance Clear (Clear) 01/01/24 07:57 Urine pH 7.5 (4.5-7.5) 01/01/24 07:57 Ur Specific [place] 1.013 (1.000-1.030) 01/01/24 07:57 Urine Protein Negative (Negative) 01/01/24 07:57 Urine Glucose (UA) Negative (Negative) 01/01/24 07:57 Urine Ketones Trace (Negative) H 01/01/24 07:57 Urine Nitrite Negative (Negative) 01/01/24 07:57 Ur Leukocyte Esterase Negative (Negative) 01/01/24 07:57 Blood Type A Positive 01/03/24 21:06 Antibody Screen NEGATIVE 01/03/24 21:06 01/04/24 01/04/24 01/04/24 11:29 08:02 05:06 POC Glucose 119 H 172 H 173 H 01/04/24 00:17 POC Glucose 177 H Electrocardiogram Date: 01/01/24 Findings: + NSR @ (@ 94 w/ 1st degree AVB;LAFB) Chest X-Ray Date: 01/01/24 Findings: + NAD Echocardiogram Date: 01/01/24 EF: 55% LV Function: normal RWMA: + none Other Findings: + diastolic dysfunction (Grade 1) Valvular Disease: + no significant valvular disease sigmoid septum
[2024-01-04] MEDS: LACTATED RINGER'S 1,000 ML IV SCH (12:25)
[2024-01-04] MEDS: ceFAZolin 2,000 MG/15 ML IV PUSH IV ONE (12:28)
[2024-01-04] MEDS ORDERED: ROCURONIUM BROMIDE 10 MG/ML 5 ML VIAL IV ONE (13:07)
[2024-01-04] MEDS ORDERED: ESMOLOL HCL INJ 10 MG/ML 10ML VIAL IV ONE (13:07)
[2024-01-04] MEDS: BUPIVACAINE/EPINEPHRINE 0.5% MPF 1:200,000 30 ML VIAL ONE (13:25)
[2024-01-04] MEDS ORDERED: ePHEDrine sulfate 50 MG/5 ML SYR ONE (13:26)
[2024-01-04] MEDS ORDERED: SUGAMMADEX SODIUM 200 MG/2 ML VIAL IV ONE (13:40)
--- NOTE | 2024-01-04 13:50 | Fluoroscopy Report ---
FL femur RT 2V CLINICAL HISTORY: RT IM GREGORY NAILING COMPARISON STUDY: Pelvis radiograph 01/01/2024 FLUOROSCOPY TIME: 105.8 seconds FLUOROSCOPY IMAGES: 4 EXPOSURE DOSE: 15.01 mGy FINDINGS: Status post placement of an intertrochanteric nail with medullary gregory fixating the acute in tertrochanteric right femoral fracture. There is improved alignment. Expected postoperative soft tiss ue swelling with deep tissue air. IMPRESSION: Fluoroscopic assistance as above. ACT 112: Negative or not required by law. Electronically signed by: Dave Velasquez M.D. 01/04/2024 1:48 PM
--- NOTE | 2024-01-04 13:55 | Operative Report ---
PG Post Operative Report Pre & Post Diagnosis Operation Date: 01/04/24 12:00 Pre-Op Diagnosis: Right Intertrochanteric Femur Fracture Post-Op Diagnosis: Right Intertrochanteric Femur Fracture I identified the patient and participated in the time-out.: Yes Procedure Operation Date: 01/04/24 12:00 Actual Procedures p Intramedullary Nailing Right Hip Fracture(Right) - Flaquito Baez MD Surgeon Flaquito Baez MD Residential Sales Manager Devante Cavazos PA-C Estimated Blood Loss 50 Findings Consistent with Post-Op Diagnosis Specimens None Anesthesia Type General Complications none Disposition Accompanied Patient To Recovery: No Indications Patient is an 78-year-old female with underlying dementia who sustained a right hip fracture. She was admitted to the hospital over the weekend. She underwent an extensive medical workup and was medically optimized. The patient and family elected to proceed with surgical stabilization. Description of Procedure Operative implants consist of: 1 Synthes right 340 mm x 11 mm long trochanteric nail. 2. 100 mm helical blade. 3. 40 mm x 5 mm distal interlocking screw. The patient was taken the operating, identified, placed on the operating table in the supine position but all contractors were appropriately padded. IV antibiotics were provided by anesthesia team. General anesthetic was implemented. The patient was then placed on the fracture table. The right leg was placed in boot traction the left leg was placed in a well leg parekh. Applied some longitudinal traction to the right femur and then internally rotated the foot. The x-ray was provided. I made some rotational adjustments to line up the femur and the femoral head and neck. The right hip and leg were then prepped and draped in usual sterile fashion. A curvilinear incision made to just proximal tip of the trochanter. Sharp dissection Through subcutaneous tissue to the level of the fascia. The fascia was incised longitudinally in line with skin incision. A guidewire was placed just lateral to the tip of the trochanter in line with the IM canal in both the AP and lateral planes. Was advanced down the IM canal. I overreamed with the 17 mm reamer. The guidewire was removed. Ball-tipped guidewire was placed. We placed this down the canal. We measured for nail length and a 340 mm nail was selected. The guidewire was overreamed with a 12.5 mm flexible reamer. A right long trochanteric nail 340 mm x 11 mm was then placed over the guidewire. Was tapped in position. A lateral aiming arm was attached. A stab incision was made. The lateral aiming arm was advanced to the lateral aspect the femur. Guidewire was placed in the central aspect the femoral head both the AP and lateral planes. The guidewire length was measured and 100 mm helical blade was selected. The cortical drill was used to breach the cortex and the triple reamer was then used. I placed 100 mm helical blade. Was tapped into position. We did compress the fracture slightly. The proximal setscrew was tightened. The proximal heartbreaking device was removed and Safyral x-rays were obtained. Attention drawn toward distal left fixation. Using a perfect napaimute technique screw was placed in the dynamic hole of the jn. Stab incision was made. The drill was used and the screw was placed in the dynamic position. Some final x-rays were obtained. Attention drawn toward closing. All wounds were irrigated with copious amounts of irrigation. I injected locally with 30 cc of half percent Marcaine with epinephrine. The gluteal fascia was then closed with #1 Vicryl suture in running fashion the subcutaneous tissues then closed with 2 layers with the deep layer #1 Vicryl suture and subcutaneous tissues with 2 Dexon suture in a buried interrupted fashion the skin was closed skin monique. Leg was then cleaned and dried a sterile dressing with Xeroform, 4 fours, ABD pad and foam tape was applied. The patient was then taken off the fracture table and placed on the transport bed. She was brought out of general anesthesia and transferred to the recovery room in stable condition. The patient tolerated the procedure well and there were no complications. Devante Cavazos, my physician assistant guest services manager, was present for the entire procedure. His assistance was required for proper patient positioning, prepping and draping, surgical exposure, retraction, perform the technical details of the operation, placement of the hardware, closure of the incision site and placement of sterile bandage. I attest to the content of the Intraoperative Record and any orders documented therein. Any exceptions are noted below.
[2024-01-04] MEDS ORDERED: fentaNYL citrate PF 100 MCG/2 ML VIAL IV PRN (14:12)
[2024-01-04] MEDS ORDERED: ePHEDrine sulfate 50 MG/ML AMP IV PRN (14:12)
[2024-01-04] MEDS ORDERED: ATROPINE SULFATE 0.1 MG/ML 10ML SYR IV PRN (14:12)
[2024-01-04] MEDS: INSULIN ASPART PER UNIT CHARGE SC SCH (16:19)
--- NOTE | 2024-01-04 16:39 | Hospitalist Progress Note ---
Date of Service January 04, 2024 Assessment & Plan (1) New onset seizure: Plan 78-year-old female with history of diabetes type 2, hypertension, CKD stage III, CVA, GERD, Parkinson's dementia presenting with seizure episode observed at the [facility] in the morning of arrival: Right femur fracture Status post fall Hip x-ray: Acute comminuted displaced intratrochanteric fracture, right femur Orthopedic service consulted, planning for OR, timing not sure. Patient is moderate to high risk for cardiopulmonary perioperative complications in light of comorbidities and age for much needed hip sx. Pt reports pain under control. Cardio and neuro evaled, cleared for sx. Sx on 01/03. PT/OT when able Mild troponin elevation: No cardiac symptoms noted. Troponin flat trended around 300, EKG no signs of acute ischemia or infarct. Echocardiogram didnot note any regional wall motion abnormality. New onset seizure, likely related to her dementia and amyloid angiopathy vs Seizure secondary to head concussion after the fall Seizure causing the fall? Pt presented after noted seizure episode at [facility], had additional episode of seizure in the ED. Admitting Brain MRI: 1. Cortical restricted effusion within the bilateral frontoparietal lobes, as described above, with associated FLAIR signal abnormality. The MR appearance is nonspecific although could represent postictal change. Additional differential considerations include ischemia, posterior reversible encephalopathy syndrome, and cerebritis. 2. 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 3. Moderate atrophy and small vessel disease. 4. No intracranial mass or pathologic enhancement. 5. Numerous foci of susceptibility artifact within the bilateral cerebral hemispheres on gradient echo sequence. The findings suggest old blood products or amyloid deposition. s/p loading dose of Keppra in the ER Continue with Keppra 500 mg every 12 hours EEG taken, no evidence of epileptiform activity. Neuro evaled, agrees w/ keppra dose. Aricept discontinued. Seizure precautions, monitor and replete electrolytes Lasix on hold due to pt's poor po intake, being on ivf, once improving PO intake reassess for resuming lasix. Hyperglycemia, diabetes type 2: Usually on insulin glargine 4 units at bedtime, metformin 500 mg twice daily. Insulin sliding scale. Consult pharmacy glycemic control CKD stage III: At baseline. Continue to monitor. History of thalamic CVA: On aspirin 81 mg p.o. daily as well as Lipitor 40 mg daily. Brain MRI as above GERD: Continue famotidine Parkinson's dementia, depression: Continue Sinemet, donepezil, escitalopram DVT prophylaxis: Heparin subcu twice daily CODE STATUS: Full code as per longterm facility documentation Disposition: Lives at [facility]. PT/OT after Sx , CM to assist w/ dc plan. Admission and Anticipated Discharge Date Admission Date: January 01, 2024 Subjective Patient was seen and examined at bedside. Patient was lying in bed, on RA, more alert today, oriented to self and place, appears lethargic/frail/ill. Patient denies pain even on right hip exam. Per RN, no new acute events overnight, taking p.o. medications. Pt evaled prior to Sx, had plan for sx today. Physical Exam Physical Exam: General- lethargic, oriented x self and place, appears frail/weak/lethargic. Head- atraumatic Eyes- PERRL,anicteric ENT- oropharynx clear Neck- supple, no JVD, no adenopathy, no thyromegaly; carotids +2/2, no bruits appreciated Lungs- clear to auscultation bilaterally, no rales/wheezes Heart- normal rate, regular rhythm; no murmur, no gallop, no rub appreciated Abdomen- normal bowel sounds, nondistended, soft, nontender, no masses or hepatosplenomegaly Extremities- Right lower extremity externally rotated, painful rom, tender right hip. no pretibial edema, no calf tenderness; peripheral pulses intact Skin- warm & dry Results & Data Results & Data Vital Signs (Past 12 Hours) Vital Signs Temp Pulse Pulse Pulse Resp BP BP 01/04/24 16:30 98 H 16 95/62 L 01/04/24 16:01 36.8 C 101 H 16 97/65 L 01/04/24 16:00 98 H 16 99/65 L 01/04/24 15:35 37.2 C 102 H 13 105/54 L 01/04/24 15:25 37.2 C 100 H 13 109/60 01/04/24 15:15 37.2 C 109 H 11 L 83/59 L 01/04/24 15:05 37.2 C 118 H 22 105/63 01/04/24 14:55 37.2 C 109 H 12 102/65 01/04/24 14:45 37.2 C 101 H 11 L 95/63 L 01/04/24 14:35 37.2 C 104 H 10 L 102/61 01/04/24 14:25 104 H 11 L 99/59 L 01/04/24 14:15 103 H 13 109/62 01/04/24 14:05 101 H 13 113/61 01/04/24 13:55 36.5 C 94 H 12 119/72 01/04/24 11:23 37.2 C 69 18 118/57 L 01/04/24 07:30 36.8 C 73 17 114/74 01/04/24 05:30 78 01/04/24 04:35 37.2 C 80 16 113/67 Pulse Ox O2 Del Method O2 Flow Rate 01/04/24 16:30 93 Oxymask 1 01/04/24 16:01 96 Oxymask 6 01/04/24 16:00 96 Oxymask 3 01/04/24 15:35 96 Oxymask 7 01/04/24 15:25 90 Oxymask 4 01/04/24 15:15 97 Oxymask 4 01/04/24 15:05 94 Oxymask 6 01/04/24 14:55 89 L Oxymask 6 01/04/24 14:45 92 Oxymask 3 01/04/24 14:35 92 Oxymask 3 01/04/24 14:25 92 Oxymask 5 01/04/24 14:15 94 Oxymask 7 01/04/24 14:05 96 Oxymask 7 01/04/24 13:55 96 Oxymask 10 01/04/24 11:23 94 Room Air 01/04/24 07:30 95 Room Air 01/04/24 05:30 01/04/24 04:35 91 Room Air
[2024-01-04] MEDS: SODIUM CHLORIDE 0.9% 1,000 ML IV SCH (17:21)
[2024-01-04] MEDS: LANTUS PER UNIT CHARGE SC SCH (21:16)
[2024-01-04] MEDS: ceFAZolin 1000MG 1,000 MG/7.5 ML SYR IV SCH (21:21)
[2024-01-04] MEDS: ASPIRIN 81 MG ECTAB PO SCH (21:49)
[2024-01-05 07:01] LABS: BUN Creatinine Ratio 18.7 (10-20); Calcium 8.2 mg/dl (8.6-10.3); Creatinine Clr Calc Pharmacy 51.2 ml/min; Est GFR (African American) 87.3 ml/min; Est GFR (Non-African American) 75.3 ml/min; Magnesium 1.7 mg/dl (1.7-2.4); Phosphorus 3.5 mg/dl (2.5-4.9); Potassium 4.3 mmol/L (3.5-5.1)
[2024-01-05 07:02] LABS: Basophils # (auto) 0.01 K/uL (0.00-0.20); Basophils % (auto) 0.2 %; Eosinophils # (auto) 0.04 K/uL (0.00-0.50); Eosinophils % (auto) 0.7 %; Hematocrit (blood only) 23.8 % (37.0-47.0); Hemoglobin 7.5 g/dl (12.0-16.0); Immature Granulocytes # (auto) 0.03 K/uL (0.01-0.20); Immature Granulocytes % (auto) 0.5 %; Lymphocytes # (auto) 0.97 K/uL (1.20-3.40); Lymphocytes % (auto) 16.2 %; Mean Corpuscular Hemoglobin 29.5 pg (25.0-34.0); Mean Corpuscular Hgb Conc 31.5 g/dL (32.0-36.0); Mean Corpuscular Volume 93.7 fL (80.0-100.0); Mean Platelet Volume 10.7 fL (9.4-12.4); Monocytes # (auto) 0.65 K/uL (0.11-0.59); Monocytes % (auto) 10.8 %; Neutrophils % (auto) 71.6 %; Platelet Count 138 K/uL (130-400); RBC Morphology Unremarkable; RDW Coefficient of Variation 14.1 % (11.5-14.5); RDW Standard Deviation 48.1 fL (36.4-46.3); Red Blood Count 2.54 M/uL (4.20-5.40)
--- NOTE | 2024-01-05 11:05 | Orthopedic Progress Note ---
Date of Service January 05, 2024 Assessment & Plan (1) Closed intertrochanteric fracture of right femur: Plan: 78-year-old female with multiple underlying comorbidities including seizure disorder and significant dementia postop day 1 from IM nailing of a hip frac ture. Orthopedically she is doing fine. No evidence of problems. Plan: We recommend physical therapy for gait training. She can fully weight- bear as tolerated. Recommend DVT prophylaxis including try teds, SCDs, aspirin twice twice a day. She is certainly a fall risk. Try and limit pain medicines. She is orthopedically okay for discharge anytime medically stable. I need to see her back 2 to 3 weeks out from surgery date. Any orthopedic questions can be direct me at [phone]. Admission and Anticipated Discharge Date Admission Date: January 01, 2024 Subjective 78-year-old female with multiple medical comorbidities including significant dementia and seizure disorder now postop day 1 from IM nailing of a right inner troches fracture. She is lying in bed in pretty sedated. Really not responding too much to commands. Physical Exam Physical Exam: Physical relation was a only a female. She is lying in bed. Really does not respond much to commands. Examination of right hip and leg reveals the leg to be well aligned. Dressings clean dry and intact. Thigh is soft and supple. Neurological exam is difficult to assess due to her lack of compliance. Results & Data Vital Signs (Past 12 Hours) Vital Signs Temp Pulse Pulse Resp BP BP Pulse Ox 01/05/24 10:53 36.8 C 95 H 20 150/81 H 98 01/05/24 08:00 01/05/24 07:29 36.8 C 95 H 16 149/72 H 91 01/05/24 06:31 96 01/05/24 03:27 36.9 C 97 H 18 133/79 97 01/04/24 23:59 36.9 C 83 16 106/65 98 O2 Del Method O2 Flow Rate 01/05/24 10:53 Nasal Cannula 1 01/05/24 08:00 Nasal Cannula 1 01/05/24 07:29 Nasal Cannula 1 01/05/24 06:31 Nasal Cannula 1 01/05/24 03:27 Oxymask 1.0 01/04/24 23:59 Oxymask 1.0 Laboratory Results Hemoglobin is 7.5. Macrocyst 23.8. Electrolytes are stable. (1) Closed intertrochanteric fracture of right femur Encounter type: initial encounter Fracture alignment: displaced Qualified Code(s): S72.141A - Displaced intertrochanteric fracture of right femur, initial encounter for closed fracture
[2024-01-05] MEDS: ACETAMINOPHEN 1,000 MG/100 ML VIAL IV PRN (12:53)
--- NOTE | 2024-01-05 16:43 | Hospitalist Progress Note ---
Date of Service January 05, 2024 Assessment & Plan (1) New onset seizure: Plan 78-year-old female with history of diabetes type 2, hypertension, CKD stage III, CVA, GERD, Parkinson's dementia presenting with [facility]: Right femur fracture Status post fall Hip x-ray: Acute comminuted displaced intratrochanteric fracture, right femur Orthopedic service consulted, planning for OR, timing not sure. Patient is moderate to high risk for cardiopulmonary perioperative complications in light of comorbidities and age for much needed hip sx. Pt reports pain under control. Cardio and neuro evaled, cleared for sx. Appreciate Ortho input and recommendation Has been very drowsy and lethargic following the procedure Likely secondary to use of anesthetic agents and narcotic pain medications Will observe Mild troponin elevation: No cardiac symptoms noted. Troponin flat trended around 300, EKG no signs of acute ischemia or infarct. Echocardiogram didnot note any regional wall motion abnormality. Doubt any ACS Appreciate cardiology input and recommendation Lasix on hold due to pt's poor po intake, being on ivf, once improving PO intake reassess for resuming lasix. New onset seizure, likely related to her dementia and amyloid angiopathy vs Seizure secondary to head concussion after the fall Seizure causing the fall? Pt presented after noted seizure episode at [facility], had additional episode of seizure in the ED. Admitting Brain MRI: 1. Cortical restricted effusion within the bilateral frontoparietal lobes, as described above, with associated FLAIR signal abnormality. The MR appearance is nonspecific although could represent postictal change. Additional differential considerations include ischemia, posterior reversible encephalopathy syndrome, and cerebritis. 2. 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 3. Moderate atrophy and small vessel disease. 4. No intracranial mass or pathologic enhancement. 5. Numerous foci of susceptibility artifact within the bilateral cerebral hemispheres on gradient echo sequence. The findings suggest old blood products or amyloid deposition. Appreciate neurology input and recommendation s/p loading dose of Keppra in the ER Continue with Keppra 500 mg every 12 hours EEG taken, no evidence of epileptiform activity. Aricept discontinued. Seizure precautions, monitor and replete electrolytes Hyperglycemia, diabetes type 2: Usually on insulin glargine 4 units at bedtime, metformin 500 mg twice daily. Insulin sliding scale. Consult pharmacy glycemic control CKD stage III: At baseline. Continue to monitor. History of thalamic CVA: On aspirin 81 mg p.o. daily as well as Lipitor 40 mg daily. Brain MRI as above GERD: Continue famotidine Parkinson's dementia, depression: Continue Sinemet, donepezil, escitalopram DVT prophylaxis: Heparin subcu twice daily CODE STATUS: Full code as per assisted facility documentation Disposition: Lives at [facility]. PT/OT after Sx , CM to assist w/ dc plan. Detailed discussion with the POA, the granddaughter The patient general condition has deteriorated and given the history of advanced dementia Likely recovery from this fracture and seizure activity is limited and is not going to be to her baseline She has been very drowsy and remains confused and recently has not been eating or drinking She wanted to have heart to be on the hospice care at [facility] The patient was made DNR and hospice care at [facility] has been placed Admission and Anticipated Discharge Date Admission Date: January 01, 2024 Subjective 01/05/2024 The patient was seen and examined in telemetry unit in presence of the granddaughter She has been drowsy and at times difficult to arouse Has significant history of dementia and the condition seems to be worse compared with prior history Has been communicating when awake and denies any significant symptoms but falls asleep thereafter Remains hemodynamically stable Review of Systems Review of Systems: Unobtainable due to cognitive status Physical Exam Physical Exam: Lying in bed without any acute distress Constitutional: + ill appearing and average body habitus Eyes: Closed ENMT: external ear and nose normal, oropharynx normal Neck: trachea midline, no thyromegaly Respiratory: no respiratory distress Auscultation: + diminished lung sounds; no crackles Cardiovascular: Rate/Rhythm: regular rate and regular rhythm; not tachycardic Heart Sounds: normal S1, normal S2 and + murmur Extremities: + edema (Trace edema bilaterally) Gastrointestinal (Abdomen): Inspection/Auscultation: normal bowel sounds; abdomen not distended Percussion/Palpation: abdomen soft; abdomen nontender Neurologic: Alert and awake. Very drowsy and lethargic. Trying to converse and falls asleep immediately thereafter Lymphatic: no cervical or axillary lymphadenopathy Results & Data Results & Data Vital Signs (Past 12 Hours) Vital Signs Temp Pulse Pulse Resp BP BP Pulse Ox 01/05/24 14:23 36.7 C 90 16 110/65 91 01/05/24 10:53 36.8 C 95 H 20 150/81 H 98 01/05/24 08:00 01/05/24 07:29 36.8 C 95 H 16 149/72 H 91 01/05/24 06:31 96 O2 Del Method O2 Flow Rate 01/05/24 14:23 Room Air 01/05/24 10:53 Nasal Cannula 1 01/05/24 08:00 Nasal Cannula 1 01/05/24 07:29 Nasal Cannula 1 01/05/24 06:31 Nasal Cannula 1 Laboratory Results Short CBC 01/05/24 Range/Units 06:01 WBC 6.00 (4.8-10.8) K/ul Hgb 7.5 L (12.0-16.0) g/dl Hct 23.8 L (37.0-47.0) % Plt Count 138 (130-400) K/uL BMP 01/05/24 06:01 Sodium 143 Potassium 4.3 D Chloride 115 H Carbon Dioxide 22 BUN 14 Creatinine 0.75 Glucose 163 H Calcium 8.2 L Medications Administered Current Inpatient Medications Aspirin (Aspirin 81 Mg Ectab) 81 mg PO BID CHIKI Stop: 02/03/24 20:59 Last Admin: 01/05/24 08:10 Dose: Not Given Atorvastatin Calcium (Atorvastatin 40 Mg Tab) 40 mg PO QPM CHIKI Stop: 01/31/24 20:59 Last Admin: 01/04/24 21:49 Dose: Not Given Bisacodyl (Bisacodyl 10 Mg Supp) 10 mg PA DAILY PRN PRN Reason: Constipation Stop: 01/31/24 13:27 Carbidopa/Levodopa (Carbidopa/Levodopa 25/100mg Tab) 2 tab PO TID CHIKI Stop: 01/31/24 13:59 Last Admin: 01/05/24 14:11 Dose: Not Given Dextrose (Dextrose 50% 50 Ml Syringe) 25 - 50 ml IV UD PRN; Protocol PRN Reason: Hypoglycemia Protocol Stop: 01/31/24 12:19 Escitalopram Oxalate (Escitalopram Oxalate 10 Mg Tab) 5 mg PO DAILY CHIKI Stop: 02/01/24 08:59 Last Admin: 01/05/24 08:10 Dose: Not Given Glucagon (Glucagon For Inj 1 Mg Vial) 1 mg SQ UD PRN; Protocol PRN Reason: Hypoglycemia Protocol Stop: 01/31/24 12:19 Glucose (Glucose 40% Gel 15 Gm Tube) 15 - 30 gm PO UD PRN; Protocol PRN Reason: Hypoglycemia Protocol Stop: 01/31/24 12:19 Glucose (Glucose 10 Tab/Tube) 4 - 8 tab PO UD PRN; Protocol PRN Reason: Hypoglycemia Treatment Stop: 01/31/24 12:19 Glucose (Glucose 40% Gel 15 Gm Tube) 1 gm PO DAILY PRN PRN Reason: Hypoglycemia Stop: 01/31/24 13:27 Hydralazine HCl (Hydralazine Hcl 20 Mg/Ml Vial) 5 mg IV Q6H PRN PRN Reason: systolic bp > 160 Stop: 01/31/24 14:31 Last Admin: 01/01/24 17:58 Dose: 5 mg Levetiracetam 500 mg/ Sodium (Chloride) 105 mls @ 420 mls/hr IV Q12 CHIKI Stop: 01/31/24 20:59 Last Infusion: 01/05/24 09:01 Dose: Infused Famotidine (Pepcid 20mg Iv Push) 20 mg in 5 mls @ 2.5 mls/min IV Q12H CHIKI Stop: 01/31/24 20:59 Last Admin: 01/05/24 08:10 Dose: 2.5 mls/min Lactated Ringer's (Lr) 1,000 mls @ 15 mls/hr IV .Q24H CHIKI Stop: 02/03/24 12:29 Last Admin: 01/05/24 14:09 Dose: Not Given Sodium Chloride (Nss) 1,000 mls @ 80 mls/hr IV .[id number] CHIKI Stop: 01/05/24 16:59 Last Admin: 01/05/24 07:32 Dose: 80 mls/hr Acetaminophen (Ofirmev) 1,000 mg in 100 mls @ 400 mls/hr IV Q8H PRN PRN Reason: Pain Stop: 01/08/24 12:32 Last Infusion: 01/05/24 13:21 Dose: Infused Insulin Aspart (Insulin Aspart Per Unit Charge) 0 units SC ACHS CHIKI Stop: 02/03/24 16:29 Last Admin: 01/05/24 12:55 Dose: Not Given Insulin Glargine (Lantus Per Unit Charge) 4 units SC HS CHIKI Stop: 02/03/24 20:59 Last Admin: 01/04/24 21:16 Dose: 4 units Lorazepam (Lorazepam 2 Mg/1 Ml Vial) 0.5 mg IV Q4 PRN PRN Reason: SEIZURE Stop: 01/31/24 15:40 Magnesium Hydroxide (Magnesium Hydroxide Susp 30 Ml Udc) 30 ml PO DAILY PRN PRN Reason: Constipation Stop: 01/31/24 13:27 Miscellaneous (Carbohydrates For Hypoglycemia ) 15 - 30 gm PO UD PRN PRN Reason: Hypoglycemia Protocol Stop: 01/31/24 12:19 Miscellaneous Information (Pharmacy Glycemic Mgmt Consult) 1 each N/A UD PRN; Protocol PRN Reason: Consult Stop: 01/31/24 12:19 Multivitamins/Minerals (Cerovite Adv Formula Tab) 1 tab PO DAILY CHIKI Stop: 02/01/24 08:59 Last Admin: 01/05/24 08:11 Dose: Not Given Polyethylene Glycol (Polyethylene (Miralax) 17 Gm Pack) 17 gm PO Q6 CHIKI Stop: 02/05/24 17:59 Saccharomyces Boulardii (Saccharomyces Boulardii 250 Mg Cap) 500 mg PO DAILY CHIKI Stop: 02/01/24 08:59 Last Admin: 01/05/24 08:11 Dose: Not Given Sodium Biphosphate/Sodium Phosphate (Sod Phosphate/Sod Biphosphate Enema 132 Ml Btl) 118 ml PA DAILY PRN PRN Reason: Constipation Stop: 01/31/24 13:27
[2024-01-05] MEDS: LANTUS PER UNIT CHARGE SC ONE (21:37)
[2024-01-05] MEDS: SODIUM CHLORIDE 0.45 % 1,000 ML IV ONE (21:46)
[2024-01-06 00:45] LABS: Appearance Urine Cloudy (Clear); Bacteria Urine Automated None Seen (None Seen); Bilirubin Urine Negative (Negative); Blood Urine 3+ (Negative); Color Urine Yellow; Glucose Urine UA Negative (Negative); Ketones Urine 2+ (Negative); Leukocyte Esterase Urine 1+ (Negative); Nitrite Urine Negative (Negative); Protein Urine 1+ (Negative); RBC Urine Automated >20 /hpf (0-2); Specific Gravity Urine 1.019 (1.000-1.030); Urobilinogen Urine Negative (Negative); WBC Urine Automated 21-50 /hpf (0-5); pH Urine 5.5 (4.5-7.5)
--- NOTE | 2024-01-06 07:34 | Orthopedic Progress Note ---
Date of Service January 06, 2024 Assessment & Plan (1) Closed intertrochanteric fracture of right femur: Plan: 78-year-old female with multiple medical comorbidities postop day 2 from IM nailing of the right inner troches fracture. Orthopedically she seems pretty stable. Does not appear to be in significant pain. Plan: 1 DVT prophylaxis. Would recommend thigh-high teds, SCDs, aspirin twice a day for 6 weeks. 2. PT/OT. She can fully weight-bear as tolerated. 3. Medical management as per the medicine service. 4. Disposition she is orthopedically okay for discharge anytime medically stable. I need to see her back 2 to 3 weeks out from surgery date. Any orthopedic questions can direct me [phone]. Admission and Anticipated Discharge Date Admission Date: January 01, 2024 Subjective 78-year-old female with multiple medical comorbidities now postop day 1 from IM nailing of a hip fracture. She is a little bit more awake and responsive this morning. Denies any clear or obvious pain. Still does not really cooperate to her right reacts to exam. Physical Exam Physical Exam: Physical examination was elderly female. She is lying in bed. She appears comfortable. Examination of the hip reveals dressing clean dry and intact intact. Leg lengths are equal. Appears neurologically intact. Results & Data Vital Signs (Past 12 Hours) Vital Signs Temp Pulse Pulse Resp BP BP Pulse Ox 01/06/24 02:49 36.3 C L 83 18 125/71 91 01/05/24 23:04 36.8 C 84 18 122/76 94 01/05/24 22:05 90 O2 Del Method O2 Flow Rate 01/06/24 02:49 Nasal Cannula 1 01/05/24 23:04 Nasal Cannula 1 01/05/24 22:05 (1) Closed intertrochanteric fracture of right femur Encounter type: initial encounter Fracture alignment: displaced Qualified Code(s): S72.141A - Displaced intertrochanteric fracture of right femur, initial encounter for closed fracture
[2024-01-06 07:54] LABS: Basophils # (auto) 0.02 K/uL (0.00-0.20); Basophils % (auto) 0.4 %; Eosinophils # (auto) 0.09 K/uL (0.00-0.50); Eosinophils % (auto) 1.8 %; Hematocrit (blood only) 21.6 % (37.0-47.0); Immature Granulocytes # (auto) 0.02 K/uL (0.01-0.20); Immature Granulocytes % (auto) 0.4 %; Lymphocytes # (auto) 1.04 K/uL (1.20-3.40); Lymphocytes % (auto) 20.4 %; Mean Corpuscular Hemoglobin 29.8 pg (25.0-34.0); Mean Corpuscular Hgb Conc 32.4 g/dL (32.0-36.0); Mean Corpuscular Volume 91.9 fL (80.0-100.0); Mean Platelet Volume 10.3 fL (9.4-12.4); Monocytes # (auto) 0.43 K/uL (0.11-0.59); Monocytes % (auto) 8.4 %; Neutrophils % (auto) 68.6 %; Platelet Count 152 K/uL (130-400); RDW Coefficient of Variation 13.9 % (11.5-14.5); RDW Standard Deviation 46.1 fL (36.4-46.3); Red Blood Count 2.35 M/uL (4.20-5.40)
[2024-01-06 08:16] LABS: BUN Creatinine Ratio 19.3 (10-20); Calcium 8.2 mg/dl (8.6-10.3); Creatinine Clr Calc Pharmacy 69.1 ml/min; Est GFR (African American) 101.5 ml/min; Est GFR (Non-African American) 87.6 ml/min; Magnesium 1.7 mg/dl (1.7-2.4); Potassium 3.8 mmol/L (3.5-5.1)
[2024-01-06 08:18] LABS: Echinocytes 1+
[2024-01-06 08:36] LABS: ALC (manual) 0.56 K/uL (1.2-3.4); ANC (manual) 4.28 K/uL (1.4-6.5); Basophils # (manual) 0.05 K/uL (0-0.2); Basophils % (manual) 1 %; Lymphocytes # (manual) 0.56 K/uL (1.2-3.4); Lymphocytes % (manual) 11 %; Monocytes % (manual) 4 %; Neutrophils # (manual) 4.28 K/uL (1.40-6.50); Neutrophils % (manual) 84 %; Polychromasia 1+
--- NOTE | 2024-01-06 09:53 | Pharmacy Report ---
Pharmacy Glycemic Short Note 2 - Date of Service January 06, 2024 - Glycemic Short BSG Results (Last 24 hours): 01/05/24 01/05/24 01/05/24 11:15 16:18 20:49 Glucose POC Glucose 144 H 141 H 144 H 01/06/24 01/06/24 07:18 07:52 Glucose 129 H POC Glucose 130 H OUTPATIENT ANTIDIABETIC REGIMEN: * Insulin glargine 4 units SC HS * Metformin 500 mg PO BIDM HbA1c: 7.2 (01/02/2024) ASSESSMENT: 01/05 * Loly received 4 units of insulin yesterday (2 were basal) * Fasting BSG this AM acceptable, continue current basal regimen * Diet for patient has changed to Type 2 Diabetes diet, however patient has been noted to often refuse food and has also refused insulin since surgery on 01/03. Novolog appears to be correcting as this time when used. * Patient has been placed on hospice at [facility]. 01/02 * Loly received 8 units of insulin yesterday (2 were basal) * Fasting BSG this AM acceptable, continue current basal regimen * She is currently on D5NSS for NPO status, potentially to OR tomorrow, Novolog appears to be correcting at this time, no changes. 12/31: * NC is an 78 year old female who presents to ED w/ right femur fracture s/p fall * Plan at this point is OR tomorrow or Wednesday, NPO at this time * Blood sugars elevated on presentation > 250 mg/dL * Will be conservative with initial insulin dosing to prioritize minimization of hypoglycemia PLAN FOR INPATIENT GLYCEMIC CONTROL: * Hold outpatient oral diabetes medications * Basal insulin * Lantus 2 units SQ HS * Bolus insulin * NovoLog per scale ACHS or Q4hrs while NPO * Goal Range: Low 120 mg/dL - High 150 mg/dL * Correction Factor: 30 mg/dL/unit * Nutritional / Prandial insulin per carb ratio of 1 unit per 15 grams CHO consumed
[2024-01-06] MEDS ORDERED: SODIUM CHLORIDE 0.9% 250 ML IV PRN (10:38)
--- NOTE | 2024-01-06 14:06 | Hospitalist Progress Note ---
Date of Service January 06, 2024 Assessment & Plan (1) New onset seizure: Plan 78-year-old female with history of diabetes type 2, hypertension, CKD stage III, CVA, GERD, Parkinson's dementia presenting with seizure episode observed at the care home in the morning of arrival: Right femur fracture Status post fall Hip x-ray: Acute comminuted displaced intratrochanteric fracture, right femur Orthopedic service consulted, planning for OR, timing not sure. Patient is moderate to high risk for cardiopulmonary perioperative complications in light of comorbidities and age for much needed hip sx. Pt reports pain under control. Cardio and neuro evaled, cleared for sx. Appreciate Ortho input and recommendation Has been very drowsy and lethargic following the procedure Likely secondary to use of anesthetic agents and narcotic pain medications Clinically much better today with complete alert and awake Communicating normally and denies any significant symptoms Acute blood loss anemia Hemoglobin dropped to 7.0 as of this morning Discussed with the POA and will give 1 unit of PRBC Will check hemoglobin tomorrow morning Likely discharge tomorrow Mild troponin elevation: No cardiac symptoms noted. Troponin flat trended around 300, EKG no signs of acute ischemia or infarct. Echocardiogram didnot note any regional wall motion abnormality. Doubt any ACS Appreciate cardiology input and recommendation Lasix on hold due to pt's poor po intake, being on ivf, once improving PO intake reassess for resuming lasix. Will resume outpatient furosemide on discharge New onset seizure, likely related to her dementia and amyloid angiopathy vs Seizure secondary to head concussion after the fall Seizure causing the fall? Pt presented after noted seizure episode at [facility], had additional episode of seizure in the ED. Admitting Brain MRI: 1. Cortical restricted effusion within the bilateral frontoparietal lobes, as described above, with associated FLAIR signal abnormality. The MR appearance is nonspecific although could represent postictal change. Additional differential considerations include ischemia, posterior reversible encephalopathy syndrome, and cerebritis. 2. 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 3. Moderate atrophy and small vessel disease. 4. No intracranial mass or pathologic enhancement. 5. Numerous foci of susceptibility artifact within the bilateral cerebral hemispheres on gradient echo sequence. The findings suggest old blood products or amyloid deposition. Appreciate neurology input and recommendation s/p loading dose of Keppra in the ER Continue with Keppra 500 mg every 12 hours EEG taken, no evidence of epileptiform activity. Aricept discontinued. Seizure precautions, monitor and replete electrolytes Will continue with seizure medications Hyperglycemia, diabetes type 2: Usually on insulin glargine 4 units at bedtime, metformin 500 mg twice daily. Insulin sliding scale. Consult pharmacy glycemic control CKD stage III: At baseline. Continue to monitor. History of thalamic CVA: On aspirin 81 mg p.o. daily as well as Lipitor 40 mg daily. Brain MRI as above GERD: Continue famotidine Parkinson's dementia, depression: Continue Sinemet, donepezil, escitalopram DVT prophylaxis: Heparin subcu twice daily CODE STATUS: Full code as per residential facility documentation Disposition: Lives at [facility]. PT/OT after Sx , CM to assist w/ dc plan. Detailed discussion with the POA, the granddaughter The patient general condition has deteriorated and given the history of advanced dementia Likely recovery from this fracture and seizure activity is limited and is not going to be to her baseline She has been very drowsy and remains confused and recently has not been eating or drinking She wanted to have heart to be on the hospice care at [facility] The patient was made DNR and hospice care at [facility] has been placed Admission and Anticipated Discharge Date Admission Date: January 01, 2024 Subjective 01/05/2024 The patient was seen and examined in telemetry unit in presence of the granddaughter She has been drowsy and at times difficult to arouse Has significant history of dementia and the condition seems to be worse compared with prior history Has been communicating when awake and denies any significant symptoms but falls asleep thereafter Remains hemodynamically stable 01/06/2024 The patient was seen and examined in telemetry unit She has been much better today and is alert and awake Remains pleasantly confused given the history of profound dementia Has been communicating reasonably and denies any significant symptoms Review of Systems Review of Systems: All systems reviewed and are unremarkable except as noted below Physical Exam Physical Exam: Lying in bed without any acute distress Constitutional: average body habitus; not ill appearing ENMT: external ear and nose normal, oropharynx normal Neck: trachea midline, no thyromegaly Respiratory: no respiratory distress Auscultation: + diminished lung sounds; no crackles Cardiovascular: Rate/Rhythm: regular rate and regular rhythm; not tachycardic Heart Sounds: normal S1, normal S2 and + murmur Extremities: + edema (Trace edema bilaterally) Gastrointestinal (Abdomen): Inspection/Auscultation: normal bowel sounds; abdomen not distended Percussion/Palpation: abdomen soft; abdomen nontender Musculoskeletal: Right hip pain with movement Neurologic: Alert and awakepleasantly confused Lymphatic: no cervical or axillary lymphadenopathy Results & Data Results & Data Vital Signs (Past 12 Hours) Vital Signs Temp Pulse Pulse Resp BP BP Pulse Ox 01/06/24 13:43 37.1 C 98 H 18 156/83 H 94 01/06/24 13:13 37.2 C 93 H 18 162/68 H 94 01/06/24 12:58 36.9 C 93 H 18 136/64 95 01/06/24 12:37 37.5 C 95 H 18 151/76 H 95 01/06/24 11:49 36.9 C 90 16 132/74 91 01/06/24 07:50 36.9 C 91 H 16 138/76 95 01/06/24 02:49 36.3 C L 83 18 125/71 91 O2 Del Method O2 Flow Rate 01/06/24 13:43 01/06/24 13:13 01/06/24 12:58 01/06/24 12:37 01/06/24 11:49 Room Air 01/06/24 07:50 Room Air 01/06/24 02:49 Nasal Cannula 1 Laboratory Results Short CBC 01/06/24 Range/Units 07:18 WBC 5.10 (4.8-10.8) K/ul Hgb 7.0 L (12.0-16.0) g/dl Hct 21.6 L (37.0-47.0) % Plt Count 152 (130-400) K/uL BMP 01/06/24 07:18 Sodium 142 Potassium 3.8 Chloride 113 H Carbon Dioxide 21 BUN 11 Creatinine 0.57 L Glucose 129 H Calcium 8.2 L Urine 01/06/24 Range/Units 00:05 Urine Color Yellow Urine Appearance Cloudy A (Clear) Urine pH 5.5 (4.5-7.5) Ur Specific [place] 1.019 (1.000-1.030) Urine Protein 1+ H (Negative) Urine Glucose (UA) Negative (Negative) Medications Administered Current Inpatient Medications Aspirin (Aspirin 81 Mg Ectab) 81 mg PO BID CHIKI Stop: 02/03/24 20:59 Last Admin: 01/06/24 09:07 Dose: Not Given Atorvastatin Calcium (Atorvastatin 40 Mg Tab) 40 mg PO QPM CHIKI Stop: 01/31/24 20:59 Last Admin: 01/05/24 21:25 Dose: Not Given Bisacodyl (Bisacodyl 10 Mg Supp) 10 mg SD DAILY PRN PRN Reason: Constipation Stop: 01/31/24 13:27 Carbidopa/Levodopa (Carbidopa/Levodopa 25/100mg Tab) 2 tab PO TID CHIKI Stop: 01/31/24 13:59 Last Admin: 01/06/24 09:07 Dose: Not Given Dextrose (Dextrose 50% 50 Ml Syringe) 25 - 50 ml IV UD PRN; Protocol PRN Reason: Hypoglycemia Protocol Stop: 01/31/24 12:19 Escitalopram Oxalate (Escitalopram Oxalate 10 Mg Tab) 5 mg PO DAILY CHIKI Stop: 02/01/24 08:59 Last Admin: 01/06/24 09:07 Dose: Not Given Glucagon (Glucagon For Inj 1 Mg Vial) 1 mg SQ UD PRN; Protocol PRN Reason: Hypoglycemia Protocol Stop: 01/31/24 12:19 Glucose (Glucose 40% Gel 15 Gm Tube) 15 - 30 gm PO UD PRN; Protocol PRN Reason: Hypoglycemia Protocol Stop: 01/31/24 12:19 Glucose (Glucose 10 Tab/Tube) 4 - 8 tab PO UD PRN; Protocol PRN Reason: Hypoglycemia Treatment Stop: 01/31/24 12:19 Glucose (Glucose 40% Gel 15 Gm Tube) 1 gm PO DAILY PRN PRN Reason: Hypoglycemia Stop: 01/31/24 13:27 Hydralazine HCl (Hydralazine Hcl 20 Mg/Ml Vial) 5 mg IV Q6H PRN PRN Reason: systolic bp > 160 Stop: 01/31/24 14:31 Last Admin: 01/01/24 17:58 Dose: 5 mg Levetiracetam 500 mg/ Sodium (Chloride) 105 mls @ 420 mls/hr IV Q12 CHIKI Stop: 01/31/24 20:59 Last Infusion: 01/06/24 10:00 Dose: Infused Famotidine (Pepcid 20mg Iv Push) 20 mg in 5 mls @ 2.5 mls/min IV Q12H CHIKI Stop: 01/31/24 20:59 Last Admin: 01/06/24 09:06 Dose: 2.5 mls/min Acetaminophen (Ofirmev) 1,000 mg in 100 mls @ 400 mls/hr IV Q8H PRN PRN Reason: Pain Stop: 01/08/24 12:32 Last Infusion: 01/05/24 13:21 Dose: Infused Sodium Chloride (Nss) 250 mls @ 15 mls/hr IV .[id number] PRN PRN Reason: For Transfusion Duration Stop: 01/06/24 20:38 Insulin Aspart (Insulin Aspart Per Unit Charge) 0 units SC ACHS CHIKI Stop: 02/03/24 16:29 Last Admin: 01/06/24 12:14 Dose: Not Given Insulin Glargine (Lantus Per Unit Charge) 2 units SC HS [facility]; Protocol Stop: 02/05/24 20:59 Lorazepam (Lorazepam 2 Mg/1 Ml Vial) 0.5 mg IV Q4 PRN PRN Reason: SEIZURE Stop: 01/31/24 15:40 Magnesium Hydroxide (Magnesium Hydroxide Susp 30 Ml Udc) 30 ml PO DAILY PRN PRN Reason: Constipation Stop: 01/31/24 13:27 Miscellaneous (Carbohydrates For Hypoglycemia ) 15 - 30 gm PO UD PRN PRN Reason: Hypoglycemia Protocol Stop: 01/31/24 12:19 Miscellaneous Information (Pharmacy Glycemic Mgmt Consult) 1 each N/A UD PRN; Protocol PRN Reason: Consult Stop: 01/31/24 12:19 Multivitamins/Minerals (Cerovite Adv Formula Tab) 1 tab PO DAILY CHIKI Stop: 02/01/24 08:59 Last Admin: 01/06/24 09:07 Dose: Not Given Polyethylene Glycol (Polyethylene (Miralax) 17 Gm Pack) 17 gm PO Q6 CHIKI Stop: 02/05/24 17:59 Saccharomyces Boulardii (Saccharomyces Boulardii 250 Mg Cap) 500 mg PO DAILY CHIKI Stop: 02/01/24 08:59 Last Admin: 01/06/24 09:07 Dose: Not Given Sodium Biphosphate/Sodium Phosphate (Sod Phosphate/Sod Biphosphate Enema 132 Ml Btl) 118 ml SD DAILY PRN PRN Reason: Constipation Stop: 01/31/24 13:27
[2024-01-06] MEDS: POLYETHYLENE (MIRALAX) 17 GM PACK PO SCH (18:38)
[2024-01-06 20:06] VITALS: RESP 18
[2024-01-06] MEDS: LANTUS PER UNIT CHARGE SC SCH (22:15)
[2024-01-06] MEDS: levETIRAcetam 500 MG TAB PO SCH (22:15)
[2024-01-07 06:04] LABS: Basophils # (auto) 0.02 K/uL (0.00-0.20); Basophils % (auto) 0.4 %; Eosinophils # (auto) 0.16 K/uL (0.00-0.50); Eosinophils % (auto) 3.2 %; Hemoglobin 9.2 g/dl (12.0-16.0); Immature Granulocytes # (auto) 0.03 K/uL (0.01-0.20); Immature Granulocytes % (auto) 0.6 %; Lymphocytes # (auto) 1.16 K/uL (1.20-3.40); Lymphocytes % (auto) 22.9 %; Mean Corpuscular Hemoglobin 29.5 pg (25.0-34.0); Mean Corpuscular Hgb Conc 32.9 g/dL (32.0-36.0); Mean Corpuscular Volume 89.7 fL (80.0-100.0); Mean Platelet Volume 9.8 fL (9.4-12.4); Monocytes # (auto) 0.48 K/uL (0.11-0.59); Monocytes % (auto) 9.5 %; Neutrophils # (auto) 3.22 K/uL (1.40-6.50); Neutrophils % (auto) 63.4 %; Platelet Count 189 K/uL (130-400); RDW Coefficient of Variation 14.2 % (11.5-14.5); RDW Standard Deviation 45.8 fL (36.4-46.3); Red Blood Count 3.12 M/uL (4.20-5.40); White Blood Count 5.07 K/ul (4.8-10.8)
[2024-01-07 07:28] VITALS: TEMP 97.9; O2SAT 96
--- NOTE | 2024-01-07 10:08 | Pharmacy Report ---
Pharmacy Glycemic Short Note 2 - Date of Service January 07, 2024 - Glycemic Short BSG Results (Last 24 hours): 01/06/24 01/06/24 01/06/24 11:51 16:11 20:20 POC Glucose 134 H 131 H 133 H 01/07/24 07:26 POC Glucose 117 H OUTPATIENT ANTIDIABETIC REGIMEN: * Insulin glargine 4 units SC HS * Metformin 500 mg PO BIDM HbA1c: 7.2 (01/02/2024) ASSESSMENT: 01/06 * Loly received 2 units of insulin yesterday, all of which was basal * Fasting BSG 117 this AM after her BSG consistently being in the 130s for the entirety of the previous day. Basal insulin discontinued due to low dose, decreased food intake, and admission to hospice * No Novolog was used in during the previous day due to BSG being consistently in the goal range. Will continue with current Novolog dosing. 01/05 * Loly received 4 units of insulin yesterday (2 were basal) * Fasting BSG this AM acceptable, continue current basal regimen * Diet for patient has changed to Type 2 Diabetes diet, however patient has been noted to often refuse food and has also refused insulin since surgery on 01/03. Novolog appears to be correcting as this time when used. * Patient has been placed on hospice at [facility]. 01/02 * Loly received 8 units of insulin yesterday (2 were basal) * Fasting BSG this AM acceptable, continue current basal regimen * She is currently on D5NSS for NPO status, potentially to OR tomorrow, Novolog appears to be correcting at this time, no changes. 12/31: * GLORY is an 78 year old female who presents to ED w/ right femur fracture s/p fall * Plan at this point is OR tomorrow or Wednesday, NPO at this time * Blood sugars elevated on presentation > 250 mg/dL * Will be conservative with initial insulin dosing to prioritize minimization of hypoglycemia PLAN FOR INPATIENT GLYCEMIC CONTROL: * Hold outpatient oral diabetes medications * Basal insulin * None * Bolus insulin * NovoLog per scale ACHS or Q4hrs while NPO * Goal Range: Low 120 mg/dL - High 150 mg/dL * Correction Factor: 30 mg/dL/unit * Nutritional / Prandial insulin per carb ratio of 1 unit per 15 grams CHO consumed
--- NOTE | 2024-01-07 11:36 | Orthopedic Progress Note ---
Date of Service January 07, 2024 Assessment & Plan (1) Closed intertrochanteric fracture of right femur: Plan: 78-year-old female with multiple medical comorbidities with significant dementia now 3 days out from a IM nailing of the intertrochanteric hip fracture. Orthopedically she is stable. She seems to be getting a little bit better each day. Plan: 1. DVT prophylaxis including thigh-high teds, SCDs, aspirin twice a day as what we recommend for 6 weeks. 2. PT/OT. She can fully weight-bear as tolerated. 3. Pain control doing okay with current pain regimen. She looks reasonably comfortable. 4. Medical management. As per the medicine service. 5. Disposition. She is okay for discharge anytime medically stable. I need to see her back 2 to 3 weeks out from surgery date. Any orthopedic questions can be directly [phone]. Admission and Anticipated Discharge Date Admission Date: January 01, 2024 Subjective 78-year-old female with a significant underlying dementia postop day 3 from IM nailing of right inotrope fracture. That she continues to be a little more awake and alert today. Does not really follow commands. Physical Exam Physical Exam: Physical examination was a pleasant elderly female patient lying in bed. That she examination of the hip reveals the dressing clean dry and intact. Leg lengths are equal. Thigh is soft and supple. She spontaneously moves her foot up and down but will really do it on command. Results & Data Vital Signs (Past 12 Hours) Vital Signs Temp Pulse Pulse Resp BP Pulse Ox O2 Del Method 01/07/24 09:05 81 01/07/24 07:27 36.6 C 73 18 156/83 H 96 Room Air 01/07/24 02:36 36.7 C 85 18 159/81 H 95 Room Air Laboratory Results Hemoglobin is 9.2. Hematocrit is 28.0. (1) Closed intertrochanteric fracture of right femur Encounter type: initial encounter Fracture alignment: displaced Qualified Code(s): S72.141A - Displaced intertrochanteric fracture of right femur, initial encounter for closed fracture
--- NOTE | 2024-01-07 11:49 | Hospitalist Progress Note ---
Date of Service January 07, 2024 Assessment & Plan (1) New onset seizure: Plan 78-year-old female with history of diabetes type 2, hypertension, CKD stage III, CVA, GERD, Parkinson's dementia presenting with seizure episode observed at the group home in the morning of arrival: Right femur fracture S/P Fall --Hip x-ray: Acute comminuted displaced intratrochanteric fracture, right femur --S/P Intramedullary Nailing Right Hip Fracture(Right) by Dr. Baez on 01/04/2024 Appreciate orthopedics input Continue wound care per orthopedics Fall precautions PT OT Complaints hide teds, SCDs and aspirin 81mg twice daily for 6 weeks for DVT prophylaxis Weightbearing as tolerated Needs follow-up with orthopedics in 2 to 3 weeks on discharge Acute blood loss anemia Likely postop S/P 1 unit PRBCs Hemoglobin improved to 9.2 today Plan to be discharged to rehab facility today Mild troponin elevation: No cardiac symptoms noted. Troponin flat trended around 300, EKG no signs of acute ischemia or infarct. Echocardiogram didnot note any regional wall motion abnormality. Doubt any ACS Appreciate cardiology input and recommendation Will resume outpatient furosemide on discharge New onset seizure, likely related to her dementia and amyloid angiopathy vs Seizure secondary to head concussion after the fall Seizure causing the fall? Pt presented after noted seizure episode at [facility], had additional episode of seizure in the ED. Admitting Brain MRI: 1. Cortical restricted effusion within the bilateral frontoparietal lobes, as described above, with associated FLAIR signal abnormality. The MR appearance is nonspecific although could represent postictal change. Additional differential considerations include ischemia, posterior reversible encephalopathy syndrome, and cerebritis. 2. 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 3. Moderate atrophy and small vessel disease. 4. No intracranial mass or pathologic enhancement. 5. Numerous foci of susceptibility artifact within the bilateral cerebral hemispheres on gradient echo sequence. The findings suggest old blood products or amyloid deposition. Appreciate neurology input and recommendation s/p loading dose of Keppra in the ER Continue with Keppra 500 mg every 12 hours EEG taken, no evidence of epileptiform activity. Aricept discontinued. Seizure precautions, monitor and replete electrolytes Needs follow-up with neurology on discharge Abnormal urinalysis Possible UTI Empirically started on cefdinir Hyperglycemia, diabetes type 2: Usually on insulin glargine 4 units at bedtime, metformin 500 mg twice daily. Insulin sliding scale. Consult pharmacy glycemic control CKD stage III: At baseline. Continue to monitor. History of thalamic CVA: On aspirin 81 mg p.o. daily as well as Lipitor 40 mg daily. Brain MRI as above GERD: Continue famotidine Parkinson's dementia, depression: Continue Sinemet, donepezil, escitalopram DVT Px: Heparin SQ--discontinued Aspirin BID CODE STATUS: DNI DNR Disposition: SNF with hospice As per prior provider: Detailed discussion with the POA, the granddaughter The patient general condition has deteriorated and given the history of advanced dementia Likely recovery from this fracture and seizure activity is limited and is not going to be to her baseline She has been very drowsy and remains confused and recently has not been eating or drinking She wanted to have heart to be on the hospice care at [facility] The patient was made DNR and hospice care at [facility] has been placed Admission and Anticipated Discharge Date Admission Date: January 01, 2024 Subjective Patient is seen and examined at bedside Unable to obtain much history Pleasantly confused No distress on exam Afebrile today Plan to be discharged to rehab today Review of Systems Review of Systems: Unobtainable due to cognitive status Physical Exam Physical Exam: Physical Exam: Vitals signs as noted above General Appearance: Chronically appearing, pleasantly confused, no apparent distress Head: normocephalic, Atraumatic Eyes: normal inspection, EOMI Neck: supple, Trachea midline Respiratory/Chest: Decreased breath sounds, CTA, No accessory muscle use Cardiovascular: S1, S2, No murmur Abdomen/GI:Soft, Non tender, Bowel sounds present Extremities/Musculoskeletal:normal inspection, no edema , right hip surgical site in dressing Neurologic/Psych: Confused, grossly moves all extremities, could not perform complete neurological exam Skin: normal color, warm Results & Data Results & Data Vital Signs (Past 12 Hours) Vital Signs Temp Pulse Pulse Resp BP Pulse Ox O2 Del Method 01/07/24 09:05 81 01/07/24 07:27 36.6 C 73 18 156/83 H 96 Room Air 01/07/24 02:36 36.7 C 85 18 159/81 H 95 Room Air Laboratory Results Short CBC 01/07/24 Range/Units 05:44 WBC 5.07 (4.8-10.8) K/ul Hgb 9.2 L (12.0-16.0) g/dl Hct 28.0 L (37.0-47.0) % Plt Count 189 (130-400) K/uL
--- NOTE | 2024-01-07 12:04 | Discharge Summary ---
Date of Service January 07, 2024 Admission HPI Per Admitting Provider 78-year-old female with history of diabetes type 2, hypertension, CKD stage III, CVA, GERD, Parkinson's dementia presenting with [facility] episode [facility] at [facility] this morning. History obtained from the staff of patient's [facility] as patient is sleeping/postictal. At baseline, patient is alert but confused/disoriented at all times. She is still able to ambulate independently with no assistive device at the alf facility. She does need some help with activities of daily living like eating or getting dressed. Last evening, patient was found by staff on the toilet floor, conscious, but incontinent of urine. She was not able to describe how she fell, denies pain at the time. This morning, patient was found to be having generalized ongoing seizures while in the toilet. This episode lasted for about 30 seconds. At the ER, she was again noticed to have generalized close seizure that lasted for about a minute. She was given Ativan and was loaded with IV Keppra. The patient has been sleeping since then. Doppler carotid studies done earlier this month from outpatient [facility] clinic. Right carotid artery duplex examination indicates evidence of less than 50% stenosis of the internal carotid artery. Left carotid artery duplex examination indicates evidence of less than 50% stenosis of the internal carotid artery. Admission Exam Per Admitting Provider General-Sleeping, breathing with no effort or accessory muscle use Head- atraumatic Eyes- PERRL,anicteric ENT- oropharynx clear Neck- supple, no JVD, no adenopathy, no thyromegaly; carotids +2/2, no bruits appreciated Lungs- clear to auscultation bilaterally, no rales/wheezes Heart- normal rate, regular rhythm; no murmur, no gallop, no rub appreciated Abdomen- normal bowel sounds, nondistended, soft, nontender, no masses or hepatosplenomegaly Extremities- Right lower extremity externally rotated no pretibial edema, no calf tenderness; peripheral pulses intact Neuro- Sleeping Skin- warm & dry Principal Diagnosis Right Hip Fracture Acute blood loss anemia New onset seizure Possible UTI Parkinson's dementia Discharge Data Allergies Allergy/AdvReac Type Severity Reaction Status Date / Time bee venom protein (honey bee) Allergy Unknown Unknown Verified 06/30/22 14:18 latex Allergy Unknown Unknown Verified 06/30/22 14:18 Sulfa (Sulfonamide Allergy Unknown Unknown Verified 06/30/22 14:18 Antibiotics) Consultations 01/01/24 09:39 ED Decision to Admit Stat 01/01/24 09:49 Consult Orthopedic Surgery Routine 01/01/24 12:20 Consult Neurology Routine 01/02/24 13:04 Consult Cardiology Routine Procedures Performed Operation Date: 01/04/24 12:00 Actual Procedures p Intramedullary Nailing Right Hip Fracture(Right) - Flaquito Baez MD Laboratory Results WBC 5.07 K/ul (4.8-10.8) 01/07/24 05:44 RBC 3.12 M/uL (4.20-5.40) L 01/07/24 05:44 Hgb 9.2 g/dl (12.0-16.0) L 01/07/24 05:44 Hct 28.0 % (37.0-47.0) L 01/07/24 05:44 MCV 89.7 fL (80.0-100.0) 01/07/24 05:44 MCH 29.5 pg (25.0-34.0) 01/07/24 05:44 MCHC 32.9 g/dL (32.0-36.0) 01/07/24 05:44 RDW Std Deviation 45.8 fL (36.4-46.3) 01/07/24 05:44 RDW Coeff of Ilan 14.2 % (11.5-14.5) 01/07/24 05:44 Plt Count 189 K/uL (130-400) 01/07/24 05:44 MPV 9.8 fL (9.4-12.4) 01/07/24 05:44 Immature Gran % (Auto) 0.6 % 01/07/24 05:44 Neut % (Auto) 63.4 % 01/07/24 05:44 Lymph % (Auto) 22.9 % 01/07/24 05:44 E[place]ka % (Auto) 9.5 % 01/07/24 05:44 Eos % (Auto) 3.2 % 01/07/24 05:44 Baso % (Auto) 0.4 % 01/07/24 05:44 Neut # (Auto) 3.22 K/uL (1.40-6.50) 01/07/24 05:44 Lymph # (Auto) 1.16 K/uL (1.20-3.40) L 01/07/24 05:44 Eureka # (Auto) 0.48 K/uL (0.11-0.59) 01/07/24 05:44 Eos # (Auto) 0.16 K/uL (0.00-0.50) 01/07/24 05:44 Baso # (Auto) 0.02 K/uL (0.00-0.20) 01/07/24 05:44 Immature Gran # (Auto) 0.03 K/uL (0.01-0.20) 01/07/24 05:44 Absolute Nucleated RBC Cancelled 01/04/24 06:20 Nucleated RBC % (auto) Cancelled 01/04/24 06:20 Neutrophils % (Manual) 84 % 01/06/24 07:18 Band Neutrophils % Cancelled 01/04/24 06:20 Lymphocytes % (Manual) 11 % 01/06/24 07:18 Prolymphocyte % Cancelled 01/04/24 06:20 Reactive Lymphs % (Man) Cancelled 01/04/24 06:20 Monocytes % (Manual) 4 % 01/06/24 07:18 Eosinophils % (Manual) Cancelled 01/04/24 06:20 Basophils % (Manual) 1 % 01/06/24 07:18 Metamyelocytes % (Man) Cancelled 01/04/24 06:20 Myelocytes % (Man) Cancelled 01/04/24 06:20 Promyelocytes % (Man) Cancelled 01/04/24 06:20 Blast Cells % (Manual) Cancelled 01/04/24 06:20 Plasma Cell % (Manual) Cancelled 01/04/24 06:20 Other Cells % Cancelled 01/04/24 06:20 Nucleated RBC % Cancelled 01/04/24 06:20 Neutrophils # (Manual) 4.28 K/uL (1.40-6.50) 01/06/24 07:18 Band Neutrophils # Cancelled 01/04/24 06:20 Total Absolute Neuts 4.28 K/uL (1.4-6.5) 01/06/24 07:18 Lymphocytes # (Manual) 0.56 K/uL (1.2-3.4) L 01/06/24 07:18 Prolymphocyte # Cancelled 01/04/24 06:20 Reactive Lymphs # Cancelled 01/04/24 06:20 Total Abs Lymphocytes 0.56 K/uL (1.2-3.4) L 01/06/24 07:18 Monocytes # (Manual) 0.20 K/uL (0.11-0.59) 01/06/24 07:18 Eosinophils # (Manual) Cancelled 01/04/24 06:20 Basophils # (Manual) 0.05 K/uL (0-0.2) 01/06/24 07:18 Metamyelocytes # (Man) Cancelled 01/04/24 06:20 Myelocytes # (Manual) Cancelled 01/04/24 06:20 Promyelocytes # (Man) Cancelled 01/04/24 06:20 Blast Cells # (Man) Cancelled 01/04/24 06:20 Plasma Cell # (Manual) Cancelled 01/04/24 06:20 Other Cells # Cancelled 01/04/24 06:20 Nucleated RBCs # (Man) Cancelled 01/04/24 06:20 Hypersegmented Neuts Cancelled 01/04/24 06:20 Hyposegmented Neuts Cancelled 01/04/24 06:20 Hypogranular Neuts Cancelled 01/04/24 06:20 Large Granular Lymphs Cancelled 01/04/24 06:20 # Lrg Granular Lymphs Cancelled 01/04/24 06:20 Hairy Cells Cancelled 01/04/24 06:20 Smudge Cells Cancelled 01/04/24 06:20 Toxic Granulation Cancelled 01/04/24 06:20 Toxic Vacuolation Cancelled 01/04/24 06:20 Dohle Bodies Cancelled 01/04/24 06:20 Victor M Rods Cancelled 01/04/24 06:20 Platelet Estimate Cancelled 01/04/24 06:20 Hypogranular Platelets Cancelled 01/04/24 06:20 Giant Platelets Cancelled 01/04/24 06:20 Platelet Satelliting Cancelled 01/04/24 06:20 RBC Morphology Unremarkable 01/05/24 06:01 Polychromasia 1+ 01/06/24 07:18 Hypochromasia Cancelled 01/04/24 06:20 Poikilocytosis Cancelled 01/04/24 06:20 Basophilic Stippling Cancelled 01/04/24 06:20 Anisocytosis Cancelled 01/04/24 06:20 Microcytosis Cancelled 01/04/24 06:20 Macrocytosis Cancelled 01/04/24 06:20 Spherocytes Cancelled 01/04/24 06:20 Pappenheimer Bodies Cancelled 01/04/24 06:20 Sickle Cells Cancelled 01/04/24 06:20 Target Cells Cancelled 01/04/24 06:20 Tear Drop Cells Cancelled 01/04/24 06:20 Ovalocytes Cancelled 01/04/24 06:20 Stomatocytes Cancelled 01/04/24 06:20 Arrieta-Dassel Bodies Cancelled 01/04/24 06:20 Echinocytes 1+ 01/05/24 06:01 Acanthocytes (Spur) Cancelled 01/04/24 06:20 Rouleaux Cancelled 01/04/24 06:20 RBC Agglutinates Cancelled 01/04/24 06:20 Schistocytes Cancelled 01/04/24 06:20 Sezary Cell Cancelled 01/04/24 06:20 PT 11.9 Seconds (9.0-12.0) 01/01/24 09:13 INR 1.1 (0.9-1.1) 01/01/24 09:13 APTT 23 Seconds (21-31) 01/01/24 09:13 PTT Ratio 0.9 01/01/24 09:13 Sodium 142 mmol/L (136-145) 01/06/24 07:18 Potassium 3.8 mmol/L (3.5-5.1) 01/06/24 07:18 Chloride 113 mmol/L (98-107) H 01/06/24 07:18 Carbon Dioxide 21 mmol/L (21-32) 01/06/24 07:18 Anion Gap 8 (3-11) 01/06/24 07:18 BUN 11 mg/dl (6-23) 01/06/24 07:18 Creatinine 0.57 mg/dl (0.6-1.2) L 01/06/24 07:18 Est Cr Clr Drug Dosing 69.1 ml/min 01/06/24 07:18 Est GFR ( Amer) 101.5 ml/min 01/06/24 07:18 Est GFR (Non-Af Amer) 87.6 ml/min 01/06/24 07:18 BUN/Creatinine Ratio 19.3 (10-20) 01/06/24 07:18 Glucose 129 mg/dl (70-99(Fasting)) H 01/06/24 07:18 POC Glucose 113 mg/dl (70-99) H 01/07/24 11:40 Estimat Average Glucose 160 mg/dl 01/02/24 05:45 Hemoglobin A1c 7.2 % (4.5-5.6) H 01/02/24 05:45 Calcium 8.2 mg/dl (8.6-10.3) L 01/06/24 07:18 Phosphorus 3.0 mg/dl (2.5-4.9) 01/06/24 07:18 Magnesium 1.7 mg/dl (1.7-2.4) 01/06/24 07:18 Total Bilirubin 1.4 mg/dl (0.2-1.0) H 01/03/24 04:21 AST 25 U/L (13-39) 01/03/24 04:21 ALT 9 U/L (7-52) 01/03/24 04:21 Alkaline Phosphatase 87 U/L (34-104) 01/03/24 04:21 Ammonia < 10.0 umol/L (18-72) L 01/02/24 12:52 Troponin I High Sens 377.3 pg/ml (0-14) H* 01/02/24 05:45 Total Protein 6.1 gm/dl (6.0-8.3) 01/03/24 04:21 Albumin 3.8 gm/dl (3.4-5.0) 01/03/24 04:21 Globulin 2.3 gm/dl (2.5-4.0) L 01/03/24 04:21 Albumin/Globulin Ratio 1.7 (0.9-2) 01/03/24 04:21 25-OH Vitamin D Total 37.6 ng/ml (30-100) 01/05/24 06:01 TSH 2.361 uIu/ml (0.300-4.500) 01/01/24 08:11 Prolactin 73.68 ng/ml 01/01/24 08:11 Urine Color Yellow 01/06/24 00:05 Urine Appearance Cloudy (Clear) A 01/06/24 00:05 Urine pH 5.5 (4.5-7.5) 01/06/24 00:05 Ur Specific Union 1.019 (1.000-1.030) 01/06/24 00:05 Urine Protein 1+ (Negative) H 01/06/24 00:05 Urine Glucose (UA) Negative (Negative) 01/06/24 00:05 Urine Ketones 2+ (Negative) H 01/06/24 00:05 Urine Blood 3+ (Negative) H 01/06/24 00:05 Urine Nitrite Negative (Negative) 01/06/24 00:05 Urine Bilirubin Negative (Negative) 01/06/24 00:05 Urine Urobilinogen Negative (Negative) 01/06/24 00:05 Ur Leukocyte Esterase 1+ (Negative) H 01/06/24 00:05 Urine WBC (Auto) 21-50 /hpf (0-5) H 01/06/24 00:05 Urine RBC (Auto) >20 /hpf (0-2) H 01/06/24 00:05 U Hyaline Cast (Auto) 3-5 /lpf (0-2) H 01/06/24 00:05 U Epithel Cells (Auto) 3-5 /hpf (0-2) H 01/06/24 00:05 Urine Bacteria (Auto) None Seen (None Seen) 01/06/24 00:05 Nasal Screen MRSA (PCR) Negative (Negative) 01/01/24 Unknown SARS-CoV-2, RNA, NAAT NEGATIVE (NEGATIVE) 01/01/24 07:57 Blood Parasites ID Cancelled 01/04/24 06:20 Blood Type A Positive 01/03/24 21:06 Blood Type Recheck A Positive 01/06/24 07:18 Antibody Screen NEGATIVE 01/03/24 21:06 Crossmatch See Detail 01/03/24 21:06 Impressions Chest X-Ray 01/01/24 07:41 XR chest 1V portable CLINICAL HISTORY: weakness. Fall. COMPARISON STUDY: Chest radiograph May 28, 2021. FINDINGS: Mild elevation the right hemidiaphragm is unchanged. Lungs are clear. Calcified granulomas within the left lung are unchanged. These are benign. There is no pneumothorax or pleural effusion. Cardiac size is normal. Mediastinal contours are normal. There is no evidence for pulmonary edema. IMPRESSION: No acute cardiopulmonary findings. ACT 112: Negative or not required by law. Electronically signed by: Goran Costello M.D. 01/01/2024 8:[address] 01/01/24 07:42 CT OF THE HEAD WITHOUT CONTRAST CLINICAL HISTORY: Seizure. COMPARISON STUDY: MRI of the brain May 07, 2021. Head CT May 20, 2021. CT DOSE: 975.47 mGy.cm TECHNIQUE: Helical axial images of the head were obtained without IV contrast. Automated exposure control was utilized for the study. A dose lowering technique was utilized adhering to the principles of ALARA. FINDINGS: This exam is mildly compromised by motion artifact. No acute intracranial hemorrhage, midline shift or mass effect is present. The ventricular system is unremarkable. The basal cisterns are patent. There are no extra-axial collections. White matter hypodensity suggests small vessel disease. A 7 mm hypodensity within the left internal capsule may also involve the anterior aspect of the left thalamus. This is new since prior head CT. A 2.5 x 1.4 cm hypodense focus within the lateral left cerebellar hemisphere on image 9 of 16 is also new since prior head CT. No calvarial fractures are identified. IMPRESSION: 1. No acute intracranial hemorrhage. Exam mildly compromised by motion artifact. 2. 2.5 x 1.4 cm hypodense focus within the left cerebellar hemisphere which is new since prior head CT. This favors an old infarct. 3. 7 mm hypodensity within the left internal capsule which is new since prior head CT. This favors a subacute to chronic infarct. 4. No calvarial fractures. ACT 112: Negative or not required by law. Electronically signed by: Goran Costello M.D. 01/01/2024 9:15 AM Pelvis X-Ray 01/01/24 07:57 XR pelvis 1-2V routine CLINICAL HISTORY: fall COMPARISON: Pelvis and right hip radiographs May 20, 2021. FINDINGS: Sacroiliac joints and symphysis pubis are intact. There is an acute comminuted mildly displaced intertrochanteric fracture of the right femur. No additional fractures. Proximal left femur is intact. IMPRESSION: Acute comminuted displaced intertrochanteric fracture of the right femur. ACT 112: Negative or not required by law. Electronically signed by: Goran Costello M.D. 01/01/2024 8:35 AM Brain MRI 01/01/24 10:18 MRI OF THE BRAIN WITHOUT AND WITH IV CONTRAST CLINICAL HISTORY: New onset seizure. COMPARISON STUDY: MRI the brain April 27, 2021. Head CT performed earlier today. TECHNIQUE: Utilizing a 1.5 Julianne magnet and dedicated coil, multiplanar, multiecho imaging of the brain was performed pre and postcontrast administration. IV administration of 5.5 mL of Gadavist contrast was uneventful. FINDINGS: The diffusion weighted sequence demonstrates cortical restricted diffusion within the bilateral posterior frontal lobes and anterior parietal lobes. Correlation with the ADC map is somewhat difficult however findings suggest for restricted diffusion. There is associated T2 hyperintensity on the coronal FLAIR sequence. These findings are new since previous MRI. There is no mass effect. Moderate atrophy is noted. This accounts for ventricular dilatation. The basal cisterns are patent. There are no extra-axial collections. Flow-voids for the major intracranial vessels are present. Is no intracranial mass or pathologic enhancement. There is a small old infarct within the anterior left thalamus as well as the lateral left cerebellar hemisphere. These account for the findings on head CT performed earlier today. Gradient echo sequence demonstrates numerous small hypointense foci throughout the cerebral hemispheres. White matter T2 hyperintense foci are noted on the coronal FLAIR sequence. This exam is mildly compromised by motion artifact. IMPRESSION: 1. Cortical restricted effusion within the bilateral frontoparietal lobes, as described above, with associated FLAIR signal abnormality. The MR appearance is nonspecific although could represent postictal change. Additional differential considerations include ischemia, posterior reversible encephalopathy syndrome, and cerebritis. 2. 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 3. Moderate atrophy and small vessel disease. 4. No intracranial mass or pathologic enhancement. 5. Numerous foci of susceptibility artifact within the bilateral cerebral hemispheres on gradient echo sequence. The findings suggest old blood products or amyloid deposition. ACT 112: Negative or not required by law. Electronically signed by: Goran Costello M.D. 01/01/2024 11:37 AM Femur X-Ray 01/04/24 12:00 FL femur RT 2V CLINICAL HISTORY: RT IM GREGORY NAILING COMPARISON STUDY: Pelvis radiograph 01/01/2024 FLUOROSCOPY TIME: 105.8 seconds FLUOROSCOPY IMAGES: 4 EXPOSURE DOSE: 15.01 mGy FINDINGS: Status post placement of an intertrochanteric nail with medullary gregory fixating the acute intertrochanteric right femoral fracture. There is improved alignment. Expected postoperative soft tissue swelling with deep tissue air. IMPRESSION: Fluoroscopic assistance as above. ACT 112: Negative or not required by law. Electronically signed by: Dave Velasquez M.D. 01/04/2024 1:48 PM Ordered Studies 01/01/24 07:42 CT head/brain wo con Stat 01/01/24 10:18 MRI Brain [MR brain wo/w con] Routine 01/04/24 12:00 FL femur RT 2V Routine Hospital Course (1) New onset seizure: Plan 78-year-old female with history of diabetes type 2, hypertension, CKD stage III, CVA, GERD, Parkinson's dementia presenting with [facility] in the [facility] of arrival: Right femur fracture S/P Fall --Hip x-ray: Acute comminuted displaced intratrochanteric fracture, right femur --S/P Intramedullary Nailing Right Hip Fracture(Right) by Dr. Baez on 01/04/2024 Appreciate orthopedics input Continue wound care per orthopedics Fall precautions PT OT Complaints hide teds, SCDs and aspirin 81mg twice daily for 6 weeks for DVT prophylaxis Weightbearing as tolerated Needs follow-up with orthopedics in 2 to 3 weeks on discharge Acute blood loss anemia Likely postop S/P 1 unit PRBCs Hemoglobin improved to 9.2 today Plan to be discharged to rehab facility today Mild troponin elevation: No cardiac symptoms noted. Troponin flat trended around 300, EKG no signs of acute ischemia or infarct. Echocardiogram didnot note any regional wall motion abnormality. Doubt any ACS Appreciate cardiology input and recommendation Will resume outpatient furosemide on discharge New onset seizure, likely related to her dementia and amyloid angiopathy vs Seizure secondary to head concussion after the fall Seizure causing the fall? Pt presented after noted seizure episode at [facility], had additional episode of seizure in the ED. Admitting Brain MRI: 1. Cortical restricted effusion within the bilateral frontoparietal lobes, as described above, with associated FLAIR signal abnormality. The MR appearance is nonspecific although could represent postictal change. Additional differential considerations include ischemia, posterior reversible encephalopathy syndrome, and cerebritis. 2. 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 3. Moderate atrophy and small vessel disease. 4. No intracranial mass or pathologic enhancement. 5. Numerous foci of susceptibility artifact within the bilateral cerebral hemispheres on gradient echo sequence. The findings suggest old blood products or amyloid deposition. Appreciate neurology input and recommendation s/p loading dose of Keppra in the ER Continue with Keppra 500 mg every 12 hours EEG taken, no evidence of epileptiform activity. Aricept discontinued. Seizure precautions, monitor and replete electrolytes Needs follow-up with neurology on discharge Abnormal urinalysis Possible UTI Empirically started on cefdinir Hyperglycemia, diabetes type 2: Usually on insulin glargine 4 units at bedtime, metformin 500 mg twice daily. Insulin sliding scale. Consult pharmacy glycemic control CKD stage III: At baseline. Continue to monitor. History of thalamic CVA: On aspirin 81 mg p.o. daily as well as Lipitor 40 mg daily. Brain MRI as above GERD: Continue famotidine Parkinson's dementia, depression: Continue Sinemet, donepezil, escitalopram DVT Px: Heparin SQ--discontinued Aspirin BID CODE STATUS: DNI DNR Disposition: SNF with hospice As per prior provider: Detailed discussion with the POA, the granddaughter The patient general condition has deteriorated and given the history of advanced dementia Likely recovery from this fracture and seizure activity is limited and is not going to be to her baseline She has been very drowsy and remains confused and recently has not been eating or drinking She wanted to have heart to be on the hospice care at [facility] The patient was made DNR and hospice care at [facility] has been placed Total Time Total Time Spent Total Time Spent (In Minutes): 54 minutes Discharge Plan Discharge Items Patient Disposition: Transfer Long Term Fac Reason For Visit: SEIZURE, FEMUR FRACTURE Discharge Diagnosis: Right Hip Fracture Acute blood loss anemia New onset seizure Possible UTI Parkinson's dementia Condition on Discharge: Serious Activity: Per Instructions section Weightbearing: Full weightbearing Non-emergency contact: Primary Care Provider, Surgeon and Neurologist Call non-emergency contact if: you have any medication questions, your symptoms worsen, your pain is concerning for you and you have a fever Follow-up/Referrals: Lyly Mcneal MD [Primary Care Provider] - Flaquito Baez MD [Physician] - (Orthopedic follow-up 2-3 weeks from surgery date) Diet: Carb Consistent or DM2 Addtl Attending Provider Instructions: Weightbear/Activity as tolerated Continue aspirin 81 mg twice a day for 6 weeks for DVT prophylaxis and then changed to 81 mg daily (Home dose) Addtl Outside Residential Sales Professional Provider Instructions: Follow-up with your primary care physician in 1 week Follow-up with your neurologist Dr.El Dunbar in 4-6 weeks Follow-up with your orthopedic surgeon Dr. Baez in 2 to 3 weeks -- Your urine culture is pending at the time of discharge. Follow-up with your physician for results. --Complete the antibiotic course cefdinir as prescribed --Continue aspirin 81 mg twice a day for 6 weeks and then changed to 81 mg daily (home dose) --Continue Teds knee high, SCDs for DVT prophylaxis as recommended by your orthopdic surgeon Seek immediate medical attention if your symptoms reoccur or worsen Please take all medications as instructed on discharge list below. Please call if you have any questions or problems. You can reach a [facility] hospitalist on duty at [facility] 24 hours a day by calling [phone] Pending Studies at Discharge: Yes Studies:: Urine Culture Stand-Alone Forms: My [facility] Skilled Items Patient informed of condition?: Yes DNR: Yes Discharge Level of Care: Skilled Communicable Disease: No Discharge Prognosis: Stable Lines: None Urinary Catheter: Yes Medications and DC Order Prescriptions: New levetiracetam [Keppra] 500 mg Tablet 500 mg PO BID Qty: 60 1RF aspirin 81 mg Tablet,Delayed Release (Dr/Ec) 81 mg PO BID Qty: 60 0RF cefdinir 300 mg Capsule 300 mg PO BID Qty: 14 0RF Continued CertaVite Senior 0.4 mg-300 mcg- 250 mcg Tablet 1 tab PO DAILY Qty: 0 Rx Instructions: Take 1 tablet daily carbidopa-levodopa 25-100 mg tablet 2 tab PO TID Fleet Enema 19-7 gram/118 mL Enema 118 ml IL DAILY PRN (Reason: Constipation) Qty: 0 Rx Instructions: Administer if Dulcolax Suppository not effective, give on day 6 of no BM in the morning acetaminophen 325 mg Capsule 650 mg PO Q4H MDD 3g/24hr PRN (Reason: Pain/fever) bisacodyl [Dulcolax (bisacodyl)] 10 mg Suppository 10 mg IL DAILY PRN (Reason: Constipation) Rx Instructions: Give only if milk of magnesia is not effective on day 5 of no BM in the morning atorvastatin 40 mg tablet 40 mg PO QPM metformin 500 mg tablet 500 mg PO BID dextrose [Glucose Gel] 40 % Gel 1 ea PO DAILY PRN (Reason: Hypoglycemia) Rx Instructions: Give is BG level is less than 70. famotidine 20 mg tablet 20 mg PO BID furosemide 20 mg tablet 20 mg PO QAM escitalopram oxalate 5 mg tablet 5 mg PO DAILY insulin glargine 100 unit/mL (3 mL) insulin pen 4 unit SUBCUT HS glucagon 1 mg/0.2 mL Auto-Injector 1 mg SUBCUT DAILY PRN (Reason: Hypoglycemia) Rx Instructions: Administer if glucose remains less than 70 at 15 minutes after glucose gel administered magnesium hydroxide [Milk of Magnesia] 400 mg/5 mL Suspension 2,400 mg PO DAILY PRN (Reason: Constipation) Rx Instructions: Take 30ml by mouth one time daily if no BM in 3 days then give on day 4 in the morning Saccharomyces boulardii [Florastor] 250 mg Capsule 500 mg PO DAILY Discontinued donepezil 5 mg tablet 5 mg PO QPM aspirin 81 mg Tablet,Chewable 81 mg PO QAM Discharge Orders: Discharge Order (Routine); Ordered 01/07/24 Ordered By: Morgan Cintron Admission Data Admit Date/Time: 01/01/24 09:55 Attending Provider: Morgan Cintron Admit Provider: Hardeep Araujo Primary Care Provider: Lyly Mcneal Other Providers: Hardeep Araujo; Mane Bonds; Atiya Borges; Jesse Seay; Atiya Fine; Esau Valdez; Kurtis Salcedo; Markus Desai; Simón Calvillo; Karen Landon; Mitchell Du; Thom Pool; Carine Palacios; Yusuf Smart; FeltonMaricruz; Karolina Maldonado; Simón Cowart; Laura Curran; [facility]
[2024-01-07 12:27] VITALS: BP 150/97; PULSE 95
[2024-01-07] MEDS: CEFDINIR 300 MG CAP PO SCH (12:52)
== END 2024-01-07 13:49 | disposition hospice, inpatient (51) | DRG 481 ==
LOC: ED 07:32 → 4W 09:55 → SUATTDRO 09:55 → 4W 11:36